=== PATIENT | female | born 1960 | race Caucasian/White ===

== ENCOUNTER 2022-11-12 08:00 | Outpatient (OUT) | payer OTHER, SELFPAY ==
[2022-11-12 16:40] LABS: Creatinine Urine Random 35.93 mg/dL (20.00-300.00); Protein Creatinine Ratio Urine 0.17; Total Protein Urine Random <6.0 mg/dL (<=11.9)
[2022-11-12 16:51] LABS: Anion Gap 9.4; BUN Creatinine Ratio 17.9; Calcium 10.5 mg/dL (8.5-10.1); Carbon Dioxide 30.9 mmol/L (21.0-32.0); Chloride 105 mmol/L (98-107); Estimated GFR (African America 35 (>=60); Estimated GFR (Non-African Ame 29 (>=60); Glucose 97 mg/dL (74-106); Phosphorus 4.5 mg/dL (2.6-4.7); Potassium 4.3 mmol/L (3.5-5.1); Sodium 141 mmol/L (136-145); Uric Acid 6.9 mg/dL (2.6-6.0)
[2022-11-12 16:52] LABS: Hematocrit 40.8 % (36.0-48.0); Hemoglobin 13.1 g/dL (12.0-16.0)
[2022-11-12 17:32] LABS: Bilirubin Urine NEGATIVE (NEGATIVE); Blood Urine NEGATIVE (NEGATIVE); Clarity Urine CLEAR (CLEAR); Color Urine LT. YELLOW (YELLOW); Glucose Urine UA NEGATIVE (NEGATIVE); Ketones Urine NEGATIVE (NEGATIVE); Leukocyte Esterase Urine SMALL (NEGATIVE); Nitrite Urine NEGATIVE (NEGATIVE); Protein Urine NEGATIVE (NEG/TRACE); Specific Gravity Urine <=1.005 (1.005-1.025); Urobilinogen Urine 0.2 EU/dL (0.2-1.0)
[2022-11-12 17:47] LABS: Bacteria Urine NONE SEEN #/HPF (NONE SEEN); Cast Seen? NONE SEEN #/LPF (NONE SEEN); Crystals Seen? None Seen #/HPF (None Seen); Mucus Urine NONE SEEN (NONE SEEN); RBC Urine NONE SEEN #/HPF (0-2); Squamous Epithelial Cell Urine RARE #/LPF (NONE/RARE); Urine Culture Indicated ALREADY ORDERED
[2022-11-15 13:07] LABS: PTH, Intact 84 pg/mL (15-65)
== END 2022-11-12 08:01 ==
PROVIDERS: PCP Family Medicine; Visit Provider Internal Medicine
DX: N25.81 Secondary hyperparathyroidism of renal origin (principal); N18.32 Chronic kidney disease, stage 3b; Z79.899 Other long term (current) drug therapy; E83.41 Hypermagnesemia
CPT/HCPCS: 36415; 80069; 81001; 82306; 82570; 83970; 84156; 84550; 85014; 85018

== ENCOUNTER 2023-02-10 08:34 | Outpatient (OUT) | payer OTHER, SELFPAY ==
[2023-02-10 11:54] LABS: Calcium 10.2 mg/dL (8.5-10.1); Magnesium 2.4 mg/dL (1.8-2.4)
[2023-02-10 13:44] LABS: Calcium Urine Random <5.0 mg/dL (5.1-21.0); Creatinine Urine Random 14.32 mg/dL (20.00-300.00)
[2023-02-10 14:34] LABS: Calcium 24 Hour Urine 257.5 mg/24hr (100.0-300.0); Creatinine 24 Hour Urine 737.48 mg/24 hr (800.00-1800.00); Total Volume 24 Hour Urine 5150 mL/24hr
[2023-02-11 11:09] LABS: PTH, Intact 52 pg/mL (15-65)
[2023-02-17 01:07] LABS: PTHrP (PTH-Related Peptide) <2.0 pmol/L (.)
== END 2023-02-10 08:35 | disposition home or self-care (01) ==
LOC: LAB 08:34
PROVIDERS: PCP Family Medicine; Visit Provider Internal Medicine
DX: E21.3 Hyperparathyroidism, unspecified (principal); E83.52 Hypercalcemia; E55.9 Vitamin D deficiency, unspecified
CPT/HCPCS: 36415; 82310; 82340; 82397; 82570; 83735; 83970

== ENCOUNTER 2023-02-10 08:36 | Outpatient (OUT) | payer OTHER, SELFPAY ==
[2023-02-10 09:14] LABS: Hematocrit 40.8 % (36.0-48.0); Hemoglobin 13.2 g/dL (12.0-16.0)
[2023-02-10 09:47] LABS: Bilirubin Urine NEGATIVE (NEGATIVE); Blood Urine NEGATIVE (NEGATIVE); Clarity Urine CLEAR (CLEAR); Color Urine LT. YELLOW (YELLOW); Glucose Urine UA NEGATIVE (NEGATIVE); Ketones Urine NEGATIVE (NEGATIVE); Leukocyte Esterase Urine MODERATE (NEGATIVE); Nitrite Urine NEGATIVE (NEGATIVE); Protein Urine NEGATIVE (NEG/TRACE); Specific Gravity Urine <=1.005 (1.005-1.025); Urobilinogen Urine 0.2 EU/dL (0.2-1.0); pH Urine 6.5 (5.0-9.0)
[2023-02-10 12:05] LABS: Albumin Level 3.8 g/dL (3.4-5.0); BUN Creatinine Ratio 13.3; Calcium 10.2 mg/dL (8.5-10.1); Carbon Dioxide 29.5 mmol/L (21.0-32.0); Chloride 112 mmol/L (98-107); Estimated GFR (African America 40 (>=60); Estimated GFR (Non-African Ame 33 (>=60); Glucose 89 mg/dL (74-106); Potassium 4.5 mmol/L (3.5-5.1); Sodium 146 mmol/L (136-145)
[2023-02-10 12:49] LABS: Bacteria Urine TRACE #/HPF (NONE SEEN); Mucus Urine NONE SEEN (NONE SEEN); RBC Urine 0-2 #/HPF (0-2); Squamous Epithelial Cell Urine FEW #/LPF (NONE/RARE)
[2023-02-10 12:50] LABS: Cast Seen? NONE SEEN #/LPF (NONE SEEN); Crystals Seen? None Seen #/HPF (None Seen); Urine Culture Indicated YES
[2023-02-11 18:08] LABS: Free Kappa Lt Chains,S 35.4 mg/L (3.3-19.4); Free Lambda Lt Chains,S 25.6 mg/L (5.7-26.3); Kappa/Lambda Ratio,S 1.38 (0.26-1.65)
[2023-02-14 13:09] LABS: Albumin, U 44.3 % (.); Alpha-1-Globulin, U 4.9 % (.); Alpha-2-Globulin, U 12.5 % (.); Beta Globulin, U 20.2 % (.); Gamma Globulin, U 18.1 % (.); M-Spike, % Not Observed % (Not Observed); Protein,Total,Urine 10.7 mg/dL (Not Estab.)
[2023-02-14 14:08] LABS: Albumin 3.6 g/dL (2.9-4.4); Alpha-1-Globulin 0.3 g/dL (0.0-0.4); Alpha-2-Globulin 0.8 g/dL (0.4-1.0); Gamma Globulin 0.9 g/dL (0.4-1.8); Immunoglobulin A, Qn, Serum 164 mg/dL (87-352); Immunoglobulin G, Qn, Serum 941 mg/dL (586-1602); Immunoglobulin M, Qn, Serum 93 mg/dL (26-217); Protein, Total 6.6 g/dL (6.0-8.5)
== END 2023-02-10 08:37 | disposition home or self-care (01) ==
LOC: LAB 08:37
PROVIDERS: PCP Family Medicine; Visit Provider Internal Medicine
DX: E21.3 Hyperparathyroidism, unspecified (principal); E83.52 Hypercalcemia; E55.9 Vitamin D deficiency, unspecified; N18.32 Chronic kidney disease, stage 3b; Z79.899 Other long term (current) drug therapy
CPT/HCPCS: 36415; 80069; 81001; 82306; 82310; 82340; 82397; 82570; 82784; 83735; 83970; 84155; 84156; 84165; 84166; 85014; 85018; 87086

== ENCOUNTER 2023-03-01 09:37 | Outpatient (OUT) | payer OTHER, SELFPAY ==
[2023-03-01 10:21] LABS: Bilirubin Urine NEGATIVE (NEGATIVE); Blood Urine NEGATIVE (NEGATIVE); Clarity Urine CLEAR (CLEAR); Color Urine LT. YELLOW (YELLOW); Glucose Urine UA NEGATIVE (NEGATIVE); Ketones Urine NEGATIVE (NEGATIVE); Leukocyte Esterase Urine SMALL (NEGATIVE); Nitrite Urine NEGATIVE (NEGATIVE); Protein Urine NEGATIVE (NEG/TRACE); Specific Gravity Urine <=1.005 (1.005-1.025); Urobilinogen Urine 0.2 EU/dL (0.2-1.0); pH Urine 6.5 (5.0-9.0)
[2023-03-01 11:32] LABS: Anion Gap 12.8; BUN Creatinine Ratio 20.1; Calcium 10.7 mg/dL (8.5-10.1); Carbon Dioxide 28.2 mmol/L (21.0-32.0); Chloride 104 mmol/L (98-107); Estimated GFR (African America 40 (>=60); Estimated GFR (Non-African Ame 33 (>=60); Glucose 70 mg/dL (74-106); Sodium 141 mmol/L (136-145)
== END 2023-03-01 09:38 | disposition home or self-care (01) ==
PROVIDERS: PCP Family Medicine; Visit Provider Family Medicine
DX: R41.0 Disorientation, unspecified (principal)
CPT/HCPCS: 36415; 80048; 81003; 87086

== ENCOUNTER 2023-03-01 09:38 | Outpatient (OUT) | payer OTHER, SELFPAY ==
[2023-03-01 10:09] LABS: Basophils Percent Auto 0.3 % (0.2-2.0); Eosinophils Absolute Auto 0.2 10^3/uL (0.0-0.7); Eosinophils Percent Auto 2.2 % (0.9-7.0); Hematocrit 40.9 % (36.0-48.0); Hemoglobin 12.6 g/dL (12.0-16.0); Immature Granulocytes Abs Auto 0.04 10^3/uL (0.00-0.03); Immature Granulocytes Pct Auto 0.4 % (0.0-0.5); Lymphocytes Absolute Auto 2.6 10^3/uL (1.2-3.8); Lymphocytes Percent Auto 25.1 % (20.5-60.0); Mean Corpuscular HGB Conc 30.8 g/dL (29.9-35.2); Mean Corpuscular Hemoglobin 32.1 pg (26.7-34.0); Mean Corpuscular Volume 104.1 fL (81.0-99.0); Mean Platelet Volume 10.6 fL (9.5-13.5); Monocytes Absolute Auto 0.9 10^3/uL (0.3-0.8); Monocytes Percent Auto 8.5 % (1.7-12.0); Neutrophils Absolute Auto 6.6 10^3/uL (1.4-6.5); Neutrophils Percent Auto 63.5 % (43.0-75.0); Platelet Count 232 10^3/uL (150-450); Red Blood Count 3.93 10^6/uL (4.20-5.40); Red Cell Distribution Width 13.2 % (11.0-15.0); White Blood Count 10.4 10^3/uL (4.0-11.0)
[2023-03-01 12:08] LABS: Thyroid Stimulating Hormone 5.544 uIU/mL (0.358-3.740)
[2023-03-01 16:00] LABS: Free T4 0.92 ng/dL (0.76-1.46)
[2023-03-02 08:12] LABS: Lithium (Eskalith(R)), Serum 1.5 mmol/L (0.5-1.2)
== END 2023-03-01 09:39 | disposition home or self-care (01) ==
PROVIDERS: PCP Family Medicine
DX: R41.0 Disorientation, unspecified (principal); Z79.899 Other long term (current) drug therapy
CPT/HCPCS: 36415; 80048; 80178; 81003; 84439; 84443; 85025; 87086

== ENCOUNTER 2023-03-07 15:16 | Outpatient (OUT) | payer OTHER, SELFPAY | END 2023-03-07 15:17 | disposition home or self-care (01) | LOC: LAB 15:17 | PROVIDERS: PCP Family Medicine | DX: Z79.899 Other long term (current) drug therapy (principal) | CPT/HCPCS: 36415; 80178 ==

== ENCOUNTER 2023-05-21 09:03 | Outpatient (OUT) | payer OTHER, SELFPAY | END 2023-05-21 09:04 | disposition home or self-care (01) | LOC: LAB 09:03 | PROVIDERS: PCP Family Medicine; Visit Provider Nurse Practitioner Family | DX: Z79.899 Other long term (current) drug therapy (principal) | CPT/HCPCS: 36415; 80178 ==

== ENCOUNTER 2023-08-29 15:33 | Outpatient (OUT) | payer OTHER, SELFPAY ==
--- OUTSIDE RECORDS SUMMARY | 2023-08-29 15:45 | XMS_ITS | CCD ---
Author Organization [facility] Care Team Providers Care All Terrain Vehicle Technician Name Role Phone SANTA AUGUSTIN Unavailable Unavailable CASSIDY, AHMED Unavailable Unavailable CASSIDY, AHMED Unavailable Unavailable MARY KATE MAST Unavailable Unavailable Santa Augustin E Primary Care Provider [phone] Santa Augustin MD Primary Care Provider Santa Augustin MD Primary Care Provider Zachary Pascual Unavailable Geneva Naik Unavailable MD Santa Augustin Primary Care Provider DO [place] [facility] Provider MD Austyn Marco A Admit Provider [phone] MD Austyn Marco A Attending Provider [phone] Marco A Zaman Admitting Unavailable Augustin Santa E Primary Care Unavailable Marco A Zaman Attending Unavailable Geneva Naik Attending Unavailable Geneva Naik Admitting Unavailable Augustin, Santa E Primary Care Unavailable Santa Augustin MD Primary Care Provider [phone] DEMETRIA SANTA E Primary Care Unavailable GEHLOT, UPENDER Attending Unavailable AUGUSTIN, SANTA E Primary Care Unavailable GEHLOT, UPENDER Attending Unavailable AUGUSTIN, SANTA E Primary Care Unavailable GEHLOT, UPENDER Attending Unavailable AUGUSTIN, SANTA E Primary Care Unavailable GEHLOT, UPENDER Attending Unavailable AUGUSTIN, SANTA E Primary Care Unavailable GEHLOT, UPENDER Attending Unavailable AUGUSTIN, SANTA E Primary Care Unavailable GEHLOT, UPENDER Attending Unavailable AUGUSTIN, SANTA E Primary Care Unavailable GEHLOT, UPENDER Attending Unavailable AUGUSTIN, SANTA E Primary Care Unavailable GEHLOT, UPENDER Attending Unavailable ROSMERY MOON Consulting UnavailDR YENNIFER Skelton Admitting Unavailable AUGUSTIN, DR SANTA Brown Primary Care Unavailable MEHRAN ., DR DE OLIVEIRA Attending Unavailable CARL, PETER Consulting Unavailable AUGUSTIN, DR SANTA Brown Primary Care Unavailable MARIA DOLORES, ZACHARY Admitting Unavailable MARIA DOLORES, ZACHARY Attending Unavailable MARIA DOLORES, AZCHARY Consulting Unavailable GEHLOT, UPENDER Admitting Unavailable GEHLOT, UPENDER Attending Unavailable DEMETRIA, DR SANTA Brown Primary Care Unavailable GEHLOT, UPENDER Consulting Unavailable GEHLOT, UPENDER Admitting Unavailable GEHLOT, UPENDER Attending Unavailable AUGUSTIN, DR SANTA Brown Primary Care Unavailable GEHLOT, UPENDER Consulting Unavailable WEST, DR DENTON Patton Consulting Unavailable AUGUSTIN, DR SANTA Brown Primary Care Unavailable AUGUSTIN, DR SANTA Brown Admitting Unavailable AUGUSTIN, DR SANTA Brown Attending Unavailable AUGUSTIN, DR SANTA Brown Consulting Unavailable AUGUSTIN, DR SANTA Brown Primary Care Unavailable MARIA DOLORES, ZACHARY Admitting Unavailable MARIA DOLORES, ZACHARY Attending Unavailable MARIA DOLORES, ZACHARY Consulting Unavailable GEHLOT, UPENDER Admitting Unavailable GEHLOT, UPENDER Attending Unavailable AUGUSTIN, DR SANTA Brown Primary Care Unavailable GEHLOT, UPENDER Consulting Unavailable Augustin, Santa Unavailable Allergies Allergy Classification Reported Allergen(s) Allergy Type Date of Onset Reaction(s) Facility (15 sources) chlorproMAZINE; Translations: [CHLORPROMAZINE] Drug Allergy 5 [facility] (15 sources) Trifluoperazine; Translations: [TRIFLUOPERAZINE] Drug Allergy 0 [facility] (1 source) chlorproMAZINE Drug Allergy 5 [facility] Repository Medications Current Medications Medication Drug Class(es) Dates Sig (Normalized) Sig (Original) cephalexin 500 mg oral capsule (1 source) Cephalosporin Antibacterial Start: 03-11-2022 take 500 mg by mouth every six hours Cephalexin Active 500 MG PO Q6H 40 March 11, 2022 12:00am lithium carbonate 300 mg extended release oral tablet (20 sources) Start: 05-18-2022 End: 06-21-2022 take 3 tablets by mouth once daily lithium (LITHOBID) 300 MG CR tablet Take 3 (three) tablets (900 mg total) by mouth daily . 90 tablet 1 06/21/2022 Active Start: 04-26-2022 take 1 tablet by deb th once daily lithium (ESKALITH) 450 MG CR tablet Take 1 (one) tablet (450 mg total) by mouth daily . 30 tablet 0 04/26/2022 Active Start: 10-17-2020 End: 11-19-2021 take 2 tablets by mouth once daily lithium (ESKALITH) 450 MG CR tablet Take 2 (two) tablets (900 mg total) by mouth nightly . 180 tablet 1 09/14/2021 11/19/2021 Discontinued Start: 08-04-2020 End: 08-22-2020 take 2 tablets by mouth once daily lithium (ESKALITH) 450 MG CR tablet Take 2 (two) tablets (900 mg total) by mouth nightly . 180 tablet 1 08/22/2020 Active take 2 tablets by mo [facility] every twenty-four hours [place] Carbonate ER 300 MG 2 tab(s) Orally Once a day Active MegaRed [place]-3 Krill Oil 50 0 MG (10 sources) MegaRed [place]-3 Krill Oil 500 MG as directed Orally ONCE A DAY Active Neuriva - (10 sources) Neuriva - as dir ected Orally Active OLANZapine 10 mg oral tablet (20 sources) Atypical Antipsychotic Start: 05-18-2022 OLANZap ine (ZyPREXA) 10 MG tablet 1/2 tab daily HS X 1 wk, and then 1 daily HS thereafter . 30 tablet 0 05/18/2022 Active Start: 03-02-2022 End: 04-19-2022 take 20 mg by mouth once daily Olanzapine Discontinued 20 MG PO Daily March 11, 2022 12:00am March 23, 2022 2:37pm Start: 02-12-2022 End: 03-02-2022 take 1 tablet by mouth once daily OLANZapine (ZYPREXA) 15 MG tablet Take 1 (one) tablet (15 mg total) by mouth nightly . 90 tablet 1 02/12/2022 03/02/2022 Discontinued Start: 01-18-2022 End: 02-12-2022 take 1 tablet by mouth once daily OLANZapine (ZYPREXA) 10 MG tablet Take 1 (one) tablet (10 mg total) by mouth nightly . 90 tablet 1 01/18/2022 02/12/2022 Discontinued (Reorder) Start: 10-17-2020 End: 04-11-2022 take 1 tablet by mouth once daily OLANZapine (ZYPREXA) 10 MG tablet Take 1 (one) tablet (10 mg total) by mouth nightly . 90 tablet 1 09/14/2021 Active 24 hr paliperidone 6 mg extended release oral tablet (12 sources) Atypical Antipsychotic Start: 05-18-2022 End: 06-21-2022 take 1 tablet by mouth once daily paliperidone (INVEGA) 6 MG 24 hr tablet Take 1 (one) tablet (6 mg total) by mouth daily . 30 tablet 1 06/21/2022 Active Start: 04-19-2022 End: 04-19-2022 paliperidone palmitate (INVE GA SUSTENNA) injection 156 mg Start: 04-19-2022 End: 04-19-2022 paliperidone palmitate (INVE GA SUSTENNA) injection 156 mg Start: 03-23-2022 End: 04-19-2022 take 1 tablet by mouth once daily paliperidone (INVEGA) 9 MG 24 hr tablet Take 1 (one) tablet (9 mg total) by mouth daily . 30 tablet 1 04/19/2022 Active Start: 03-23-2022 Invega Sustenn a 156 mg/mL Syrg ADMINISTER 1 ML IN THE MUSCLE EVERY 30 DAYS 0 03/24/2022 Active Completed/Discontinued Medications Medication Drug Class(es) Dates Sig (Normalized) Sig (Original) clonazePAM 1 mg oral tablet (20 sources) Benzodiazepine Start: 10-28-2021 End: 09-19-2022 take 1 tablet by mouth once daily clonazePAM (KlonoPIN) 1 MG tablet Indications: KALEN (generalized anxiety disorder) Take 1 (one) tablet (1 mg total) by mouth nightly (Days supply per fill: 30) . 30 tablet 2 05/18/2022 06/21/2022 Discontinued (Reorder (Suppress CancelRx Message to Pharmacy)) Start: 07-14-2020 End: 10-14-2021 take 1 tablet by mouth once daily clonazePAM (KlonoPIN) 1 MG tablet Indications: Anxiety Take 1 (one) tablet (1 mg total) by mouth nightly (Days supply per fill: 30) . 30 tablet 0 08/25/2021 09/14/2021 Discontinued (Reorder) docusate sodium 100 mg oral capsule (10 sources) take 1 capsule by mouth every twelve hours Stool Softener 100 MG 1 capsule as needed Orally TWICE A DAY Not-Taking/PRN Knee Brace - (5 sources) Start: 05-06-2021 Knee Brace - as directed closed fracture left patella May, Not-Taking Start: 05-06-2021 Start: 05-06-2021 Knee Brace - a s directed closed fracture left patella May, Active OXcarbazepine 300 mg oral tablet (6 sources) Anti-epileptic Agent Start: 03-23-2022 End: 06-21-2022 take 1 tablet by mouth twice daily OXcarbazepine (TRILEPTAL) 300 MG tablet Take 1 (one) tablet (300 mg total) by mouth 2 (two) times a day . 60 tablet 1 04/19/2022 06/21/2022 Discontinued Problems Active Problems Problem Classification Problem Date Documented Date Episodic/Chronic Anxiety disorders (20 sources) Generalized anxiety disorder; Translations: [Generalized anxiety disorder] Onset: 1 08-22-2020 Chronic Chronic kidney disease (20 sources) Chronic kidney disease stage 3; Translations: [Chronic kidney disease stage 2] Onset: 0 Resolved: 1 08-22-2020 Chronic Deficiency and other anemia (8 sources) Anemia of renal disease; Translations: [Anemia in chronic kidney disease] Chronic Mood disorders (20 sources) Mild manic bipolar I disorder; Translations: [Bipolar disorder, current episode manic without psychotic features, mild] Onset: 3 08-22-2020 Chronic Nausea and vomiting (1 source) Nausea and vomiting; Translations: [Nausea with vomiting, unspecified] Episodic Noninfectious gastroenteritis (1 source) Noninfective gastroenteritis and colitis, unspecified Episodic Other aftercare (2 sources) H/O: high risk medication; Translations: [Other nursing home (current) drug therapy] Episodic Other aftercare (11 sources) Other nursing home (current) drug therapy; Translations: [[place] use Z79.899] Onset: 1 Resolved: 1 Episodic Other circulatory disease (1 source) Elevated blood-pressure reading without diagnosis of hypertension; Translations: [Elevated blood-pressure reading, without diagnosis of hypertension] Episodic Other diseases of kidney and ureters (8 sources) Secondary hyperparathyroidism; Translations: [Secondary hyperparathyroidism of renal origin] Chronic Other diseases of kidney and ureters (2 sources) Secondary hyperparathyroidism of renal origin; Translations: [SEC HYPERPARATHYROIDISM RENAL ORIGN] Onset: 2 Chronic Other endocrine disorders (4 sources) Hyperparathyroidism; Translations: [Hyperparathyroidism, unspecified] Chronic Other endocrine disorders (2 sources) Hyperparathyroidism, unspecified Chronic Other gastrointestinal disorders (1 source) Swollen abdomen; Translations: [Right lower quadrant abdominal swelling, mass and lump] Episodic Other nutritional; endocrine; and metabolic disorders (10 sources) Hypercalcemia; Translations: [Hypercalcemia] Chronic Other nutritional; endocrine; and metabolic disorders (10 sources) Hypermagnesemia; Translations: [Hypermagnesemia] Chronic Other nutritional; endocrine; and metabolic disorders (4 sources) Hypercalcemia; Translations: [Hypercalcemia E83.52] Onset: 1 Resolved: 1 Chronic Other nutritional; endocrine; and metabolic disorders (3 sources) Hypermagnesemia; Translations: [Hypermagnesemia E83.41] Onset: 1 Resolved: 1 Chronic Other nutritional; endocrine; and metabolic disorders (1 source) Body mass index 25-29 - overweight; Translations: [Body mass index (BMI) 25.0-25.9, adult] Episodic Other screening for suspected conditions (not mental disorders or infectious disease) (6 sources) Encounter for screening mammogram for malignant neoplasm of breast; Translations: [Abnormal findings on diagnostic imaging of breast] Onset: 2 Episodic Other skin disorders (2 sources) Localized swelling, mass and lump, right upper limb; Translations: [LOC SWELL MASS LUMP RT UPPER LIMB] Onset: 2 Episodic Other upper respiratory disease (1 source) Nasal congestion; Translations: [Nasal congestion] Episodic Pneumonia (except that caused by tuberculosis or sexually transmitted disease) (1 source) Pneumonia; Translations: [Pneumonia, unspecified organism] Episodic Residual codes; unclassified (2 sources) Hallucinations; Translations: [Hallucinations, unspecified] 03-11-2022 Episodic Residual codes; unclassified (2 sources) Hallucinations, unspecified; Translations: [Hallucinations] 03-11-2022 Episodic Residual codes; unclassified (1 source) Postmenopausal state; Translations: [Asymptomatic menopausal state] Episodic Schizophrenia and other psychotic disorders (5 sources) 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 substance or known physiological condition; Translations: [Schizophrenia] Onset: 8 03-12-2022 Chronic Syncope (1 source) Syncope and collapse; Translations: [Syncope and collapse] Episodic Unclassified (1 source) H/O: high risk medication; Translations: [Long-term use of high-risk medication] Unclassified (1 source) M25.562 - Pain in left knee; Translations: [M25.562 - Pain in left knee] Onset: 1 Urinary tract infections (4 sources) Urinary tract infectious disease; Translations: [Urinary tract infection, site not specified] 03-11-2022 Episodic Viral infection (1 source) Disease caused by 2019-nCoV; Translations: [COVID-19] Past or Other Problems Problem Classification Problem Date Documented Da te Episodic/Chronic Abdominal pain (1 source) Right lower quadrant pain; Translations: [Right lower quadrant pain] Onset: 11-14-2018 Episodic Chronic kidney disease (12 sources) Chronic kidney disease; Translations: [Chronic kidney disease, stage 3b] Onset: 04-01-2021 Resolved: 04-01-2021 E Codes: Fall (1 source) Fall (on) (from) unspecified stairs and steps, initial encounter; Translations: [FALL ON FROM UNS STAIRS STEPS INIT] Onset: 12-09-2021 Episodic Fracture of lower limb (1 source) Other fracture of left patella, initial encounter for closed fracture Onset: 05-06-2021 Resolved: 05-06-2021 Episodic Fracture of lower limb (1 source) Other fracture of upper and lower end of right fibula, initial encounter for closed fracture; Translations: [OTH FX UP LOW RT FIB INIT CLOS FX] Onset: 12-09-2021 Episodic Malaise and fatigue (1 source) Fatigue; Translations: [Other fatigue] Onset: 04-19-2018 Episodic Nonspecific chest pain (1 source) Chest pain; Translations: [Other chest pain] Onset: 12-25-2014 Episodic Other gastrointestinal disorders (1 source) Constipation; Translations: [Constipation, unspecified] Onset: 04-28-2015 Episodic Other non-traumatic joint disorders (1 source) Pain in left knee Onset: 05-06-2021 Resolved: 05-06-2021 Episodic Other non-traumatic joint disorders (4 sources) Pain in right ankle and joints of right foot; Translations: [PAIN IN RIGHT ANKLE] Onset: 12-07-2021 Episodic Other non-traumatic joint disorders (1 source) Shoulder joint pain; Translations: [Pain in right shoulder] Onset: 05-06-2017 Episodic Other upper respiratory infections (1 source) Acute sinusitis; Translations: [Acute sinusitis, unspecified] Onset: 03-11-2014 Episodic Residual codes; unclassified (14 sources) History of total hysterectomy with bilateral salpingo-oophorecto my; Translations: [Acquired absence of both cervix and uterus] Onset: 10-18-2019 08-22-2020 Episodic Residual codes; unclassified (1 source) Family history of malignant neoplasm of breast; Translations: [FAMILY HX MALIG NEOPLASM OF BREAST] Onset: 04-12-2022 Episodic Residual codes; unclassified (1 source) Family history of malignant neoplasm of digestive organs; Translations: [FAM HX MALIG NEOPLASM DIGESTIV ORGN] Onset: 04-12-2022 Episodic Results Test Name Value Interpretation Reference Range Facility LITHIUMon 05-27-2022 [place] (Eskalith(R)), Serum 1.2 mmol/L Normal 0.5-1.2 [facility] Comment on above: Result Comment: A co ncentration of 0.5-0.8 mmol/L is advised for long-term use; concentrations of up to 1.2 mmol/L may be necessary during acute treatment. Detection Limit = 0.1 <0.1 indicates None Detected Performed By: #### L ITHIUM #### [facility] [address] [place] [address] Dr. Emanuel Degroot RENAL FUNCTION PANELon 05-08 Albumin [Mass/Vol] 3.7 g/dL Normal 3.4-5.0 [facility] Comment on above: Performed By: #### R ENAL #### [facility] [address] [address] [address] Emanuel Degroot Calcium [Mass/Vol] 9.5 mg/dL Normal 8.5-10.1 [facility] Comment on above: Performed By: #### R ENAL #### [facility] [address] [address] [address] Emanuel Degroot Chloride [Moles/Vol] 106 mmol/L Normal 98-107 [facility] Comment on above: Performed By: #### R ENAL #### [facility] [address] [address] [address] Emanuel Degroot CO2 [Moles/Vol] 29.2 mmol/L Normal 21.0-32.0 [facility] Comment on above: Performed By: #### R ENAL #### [facility] [address] [place] [address] Dr. Emanuel Degroot Creatinine [Mass/Vol] 1.30 mg/dL Critically high 0.55-1.02 [facility] Comment on above: Performed By: #### R ENAL #### [facility] [address] [place] [address] Dr. Emanuel Degroot EGFR-AF AZERBAIJANI 50 mL/min/1.73m2 Critically low >=60 [facility] Comment on above: Performed By: #### R ENAL #### [facility] [address] [place] [address] Dr. Emanuel Degroot EGFR-NON AF AZERBAIJANI 42 mL/min/1.73m2 Critically low >=60 [facility] Comment on above: Performed By: #### R ENAL #### [facility] [address] [place] [address] Dr. Emanuel Degroot Glucose [Mass/Vol] 96 mg/dL Normal 74-106 [facility] Comment on above: Performed By: #### R ENAL #### [facility] [address] [place] [address] Dr. Emanuel Degroot Phosphate [Mass/Vol] 4.1 mg/dL Normal 2.6-4.7 [facility] Comment on above: Performed By: #### R ENAL #### [facility] [address] [place] [address] Dr. Emanuel Degroot Potassium [Moles/Vol] 4.0 mmol/L Normal 3.5-5.1 [facility] Comment on above: Performed By: #### R ENAL #### [facility] [address] [address] [address] Emanuel Degroot Sodium [Moles/Vol] 140 mmol/L Normal 136-145 [facility] Comment on above: Performed By: #### R ENAL #### [facility] [address] [address] [address] Emanuel Degroot Urea nitrogen [Mass/Vol] 18.0 mg/dL Normal 7.0-18.0 [facility] Comment on above: Performed By: #### R ENAL #### [facility] [address] [address] [address] Emanuel Degroot MG MAMM SCREEN TERRA W CADon 1 06-08-2021 MG MAMM SCREEN TERRA W CAD Patient: NOLA BAUTISTA Exam Date: 04/08/2022 : 1960 Gender:F Ordering : DR SANTA AUGUSTIN M.D. Admission #: [id number] Family : Order #: [id number] CLICK HERE TO VIEW EXAM RADIOLOGY REPORT PROCEDURE: MAMMOGRAM BILATERAL SCREENING DIGITAL WITH COMPUTER AIDED DETECTION COMPARISON: MG MAMM LT DIAG W CAD, 01/30/2020. MG MAMM LT DIAG FU, 08/16/2019. INDICATIONS: Screening mammography Calculator Name NCI Breast Cancer Risk Assessment Tool 5 Year Breast Cancer Risk 2.60% Lifetime Breast Cancer Risk 11.30% Personal Breast Cancer No Personal Ovarian Cancer No Treatments None Family Cancers Aunt-maternal with breast cancer at age 75; Aunt-maternal with breast cancer at age 80; Aunt-maternal with breast cancer at age 70; Mother with colon cancer at age 56. LOCATION: [facility] BREAST COMPOSITION: Scattered areas fibroglandular density. FINDINGS: DIAGNOSTIC CATEGORY 2--BENIGN FINDING. NO CHANGE FROM COMPARISON. Limited 2D exam due to patient tolerance. Scattered benign-appearing nodules are present. Scattered benign-appearing calcifications are present. Scattered benign-appearing lymph nodes are present. RIGHT BREAST: No significant suspicious finding. LEFT BREAST: No significant suspicious finding. RECOMMENDATIONS: ROUTINE MAMMOGRAM AND CLINICAL EVALUATION IN 12 MONTHS. PLEASE NOTE: A NORMAL MAMMOGRAM DOES NOT EXCLUDE THE POSSIBILITY OF BREAST CANCER. A CLINICALLY SUSPICIOUS PALPABLE LUMP SHOULD BE BIOPSIED. Dictated by: Denton Roland MD on 04/08/2022 at 13:39 Approved by: Denton Roland MD on 04/08/2022 at 13:40 Normal [facility] US EXT NON VASC LIMITED RTon 04-08-2022 US EXT NON VASC LIMITED RT EXAMINATION: US EXT NON VASC LIMITED RT HISTORY: Localized swelling of right upper limb COMPARISON: No relevant comparison available. FINDINGS: Slight ultrasound in the area the patient's palpable mass demonstrates a hyperechogenic lesion round in shape measuring 0.8 x 0.9 x 0.8 cm with some acoustic shadowing. This area is mildly lobular and appears to extend into the skin IMPRESSION: Indeterminate 9 mm hyperechogenic lesion, differential diagnosis would include inclusion cyst versus lipoma with infection considered less likely Electronically authenticated by: DENTON ROLAND Date: 2022-04-08 18:20 Normal [facility] Albumin [Mass/volume] in Ser um or PlasmaOrdered By: Horacio Kim on 03-19-2022 Albumin [Mass/Vol] 3.3 g/dL 3.2-5.5 [facility] Comprehensive Metabolic Pane sanjeev 03-19-2022 Albumin [Mass/Vol] 3.3 g/dL Normal 3.2-5.5 [facility] Comment on above: Performed By: #### C MP #### [address] Albumin/Globulin [Mass ratio] 1.3 {ratio} Normal [facility] Comment on above: Performed By: #### C MP #### [facility] [address] [place] [address] [place] ALP [Catalytic activity/Vol] 38 U/L Normal 32-92 [facility] Comment on above: Performed By: #### C MP #### [place] [id number] [place] ALT [Catalytic activity/Vol] 22 U/L Normal 10-60 [facility] Comment on above: Performed By: #### C MP #### [address] Anion gap [Moles/Vol] 9.6 mmol/L Normal 6.0-15.0 [facility] Comment on above: Performed By: #### C MP #### [address] AST [Catalytic activity/Vol] 19 U/L Normal 10-42 [facility] Comment on above: Performed By: #### C MP #### [address] Bilirubin [Mass/Vol] 0.5 mg/dL Normal 0.3-1.2 [facility] Comment on above: Performed By: #### C MP #### [address] Calcium [Mass/Vol] 9.6 mg/dL Normal 8.2-10.2 [facility] Comment on above: Performed By: #### C MP #### [address] Chloride [Moles/Vol] 110 mmol/L Normal 95-114 [facility] Comment on above: Performed By: #### C MP #### [address] CO2 [Moles/Vol] 26.6 mmol/L Normal 22.0-30.[address] [facility] Comment on above: Performed By: #### C MP #### [address] Creatinine [Mass/Vol] 1.26 mg/dL High 0.44-1.03 [facility] Comment on above: Performed By: #### C MP #### [address] Creatinine Clr Calc Pharmacy 44.02 [facility] Comment on above: Result Comment: PERF ORMED BY: [place] [address] PATHOLOGIST [employer]OPPER [employer]KER HELPER KRISTI TURNER M.D. Performed By: #### C MP #### [address] Estimated GFR ( Katrina 52 [facility] Comment on above: Result Comment: GFR estimated reference range: According to KDOQI guidelines, <60 ml/min/1.73m2 is sufficient to diagnose a patient with chronic kidney disease. Performed By: #### C MP #### [address] Estimated GFR (Non- Am 43 [facility] Comment on above: Performed By: #### C MP #### [address] Globulin (S) [Mass/Vol] 2.6 g/dL [facility] Comment on above: Performed By: #### C MP #### [address] Glucose [Mass/Vol] 95 mg/dL Normal 70-100 [facility] Comment on above: Result Comment: [place] Glucose Reference Range is dependent on time and content of last meal. Glucose of more than 200 mg/dL in a nonstressed, ambulatory subject supports the diagnosis of Diabetes Mellitus. ADA recommended reference range Performed By: #### C MP #### [address] Potassium [Moles/Vol] 4.2 mmol/L Normal 3.5-5.1 [facility] Comment on above: Performed By: #### C MP #### [address] Protein [Mass/Vol] 5.9 g/dL Low 6.1-7.9 [facility] Comment on above: Performed By: #### C MP #### [address] Sodium [Moles/Vol] 142 mmol/L Normal 136-146 [facility] Comment on above: Performed By: #### C MP #### [place] [address] [place] Urea nitrogen [Mass/Vol] 28 mg/dL High 9- [facility] Comment on above: Performed By: #### C MP #### [place] [address] [place] Creatinine and Glomerular fi ltration rate.predicted panel (S/P/Bld)Ordered By: Horacio Kim on 03-19-2022 Creatinine [Mass/Vol] 1.26 mg/dL 0.44-1.03 [facility] Estimated glomerular filtrat ion rate (GFR) non- AmericanOrdered By: Horacio Kim on 03-19-2022 GFR/1.73 sq M.predicted among non-blacks MDRD (S/P/Bld) [Vol rate/Area] 43 mL/Min [facility] Globulin Calc (S) [Mass/Vol] Ordered By: Horacio Kim on 03-19-2022 Globulin (S) [Mass/Vol] 2.6 g/dL [facility] No Panel InformationOrdered By: Horacio Kim on 03-19-2022 Estimated GFR () 52 mL/Min [facility] Comment on above: GFR estimated refere nce range: According to KDOQI guidelines, <60 ml/min/1.73m2 is sufficient to diagnose a patient with chronic kidney disease. Pharmacy Creatinine Clearance (Chem 44.02 [facility] Protein [Mass/volume] in Ser um or PlasmaOrdered By: Horacio Kim on 03-19-2022 Protein [Mass/Vol] 5.9 g/dL 6.1-7.9 [facility] Serum or plasma alanine arora otransferase measurement without P-5'-P (enzymatic activiOrdered By: Horacio Kim on 03-19-2022 ALT No additional P-5'-P [Catalytic activity/Vol] 22 U/L 10-60 [facility] Serum or plasma albumin/glob ulin mass ratioOrdered By: Horacio Kim on 03-19-2022 Albumin/Globulin [Mass ratio] 1.3 {ratio} [facility] Serum or plasma alkaline lashaun sphatase measurement (enzymatic activity/volume)Ordered By: Horacio Kim on 03-19-2022 ALP [Catalytic activity/Vol] 38 U/L 32-92 [facility] Serum or plasma anion gap de terminationOrdered By: Horacio Kim on 03-19-2022 Anion gap [Moles/Vol] 9.6 mmol/L 6.0-15.0 [facility] Serum or plasma aspartate am inotransferase measurement (enzymatic activity/volume)Ordered By: Horacio Kim on 03-19-2022 AST [Catalytic activity/Vol] 19 U/L 10- [facility] Serum or plasma calcium sunil urement (mass/volume)Ordered By: Horacio Kim on 03-19-2022 Calcium [Mass/Vol] 9.6 mg/dL 8.2-10.2 [facility] Serum or plasma chloride leo surement (moles/volume)Ordered By: Horacio Kim on 03-19-2022 Chloride [Moles/Vol] 110 mmol/L 95-114 [facility] Serum or plasma glucose sunil urement (mass/volume)Ordered By: Horacio Kim on 03-19-2022 Glucose [Mass/Vol] 95 mg/dL 70-100 [facility] Comment on above: ADA recommended refe rence rangeRandom Glucose Reference Range is dependent on time and content of last meal. Glucose of more than 200 mg/dL in a nonstressed, ambulatory subject supports the diagnosis of Diabetes Mellitus. Serum or plasma potassium me asurement (moles/volume)Ordered By: Horacio Kim on 03-19-2022 Potassium [Moles/Vol] 4.2 mmol/L 3.5-5.1 [facility] Serum or plasma sodium measu rement (moles/volume)Ordered By: Horacio Kim on 03-19-2022 Sodium [Moles/Vol] 142 mmol/L 136-146 [facility] Serum or plasma total biliru bin measurement (mass/volume)Ordered By: Horacio Kim on 03-19-2022 Bilirubin [Mass/Vol] 0.5 mg/dL 0.3-1.2 [facility] Serum or plasma total carbon dioxide measurement (moles/volume)Ordered By: Horacio Kim on 03-19-2022 CO2 [Moles/Vol] 26.6 mmol/L 22.0-30.[address] [facility] Serum or plasma urea nitroge n measurement (mass/volume)Ordered By: Horacio Kim on 03-19-2022 Urea nitrogen [Mass/Vol] 28 mg/dL 02-26 [facility] Urine culture routineOrdered By: Ruby Penn on 03-13-2022 Bacteria identified Cx Nom (U) 2 Days [facility] Glucose Glucometer (BldC) [M ass/Vol]Ordered By: Marco A Zaman on 03-12-2022 Glucose [Mass/Vol] 120 mg/dL [facility] Comment on above: Random Glucose Refer ence Range is dependent on time and content of last meal. Glucose of more than 200 mg/dL in a nonstressed, ambulatory subject supports the diagnosis of Diabetes Mellitus. Glucose Poct Glucometerson 1 Commemt1 Normal [facility] Comment on above: Result Comment: Glu2 : Procedure Error PERFORMED BY: [place] [address] PATHOLOGIST [employer] HELPER KRISTI TURNER M.D. Performed By: #### L IPID, TSH3 wRFLX, [id number] #### [facility] [address] [place] [address] Glucose [Mass/Vol] 120 mg/dL Normal [facility] Comment on above: Result Comment: [place] om Glucose Reference Range is dependent on time and content of last meal. Glucose of more than 200 mg/dL in a nonstressed, ambulatory subject supports the diagnosis of Diabetes Mellitus. Performed By: #### L IPID, TSH3 wRFLX, [id number] #### [facility] [address] [place] [address] [place] Amphetamine Screen Ql (U)Ord ered By: Ruby Penn on 03-11-2022 Amphetamines Ql (U) Negative Negative [facility] Automated erythrocytes count in urine sediment (number/area)Ordered By: Ruby Penn on 03-11-2022 RBC Auto (Urine sed) [#/Area] None seen [HPF] 0-4 [facility] Automated leukocytes count i n urine sediment (number/area)Ordered By: Ruby Penn on 03-11-2022 WBC Auto (Urine sed) [#/Area] 10-19 [HPF] 0-4 [facility] Barbiturates [Presence] in U rineOrdered By: Ruby Penn on 03-11-2022 Barbiturates Ql (U) Negative Negative [facility] Basophils Auto (Bld) [#/Vol] Ordered By: Ruby Penn on 03-11-2022 Basophils (Bld) [#/Vol] 0.1 10*3/uL 0.0-0.2 [facility] Basophils/100 WBC Auto (Bld) Ordered By: Ruby Penn on 03-11-2022 Basophils/100 WBC (Bld) 0.8 % . [facility] Benzodiazepines [Presence] i n UrineOrdered By: Ruby Penn on 03-11-2022 Benzodiazepines Ql (U) Negative Negative [facility] Bilirubin Test strip Ql (U)O rdered By: Ruby Penn on 03-11-2022 Bilirubin Ql (U) Negative Negative [facility] Blood hemoglobin measurement (mass/volume)Ordered By: Ruby Penn on 03-11-2022 Hemoglobin (Bld) [Mass/Vol] 13.5 g/dL 11.8-15.4 [facility] Blood leukocytes automated c ount (number/volume)Ordered By: Ruby Penn on 03-11-2022 WBC (Bld) [#/Vol] 10.1 10*3/uL 4.5-11.0 [facility] Body fluid albumin measureme nt (mass/volume)Ordered By: Ruby Penn on 03-11-2022 Albumin (Body fld) [Mass/Vol] 3.9 g/dL 3.2-5.5 [facility] COVID-19 Antigenon 2 COVID-19 Antigen Healthcare Worker?: N Reference Range: Negative Negative results, from patients with symptom onset beyond five days, should be treated as presumptive and confirmation with a molecular assay, if necessary, for patient management, may be performed. Negative results do not rule out COVID-19 and should not be used as the sole basis for treatment or patient management decisions, including infection control decisions. Negative results should be considered in the context of a patient's recent exposures, history and the presence of clinical signs and symptoms consistent with COVID-19. The Demetria SARS Antigen MERARY does not differentiate between SARS-CoV and SARS-CoV-2. This test was developed and its performance characteristic determined by [employer] and validated at [facility]. This test has not been FDA cleared or approved. This test has been authorized by FDA under an Emergency Use Authorization (EUA). This test has been validated in accordance with the FDA's Guidance Document (Policy for Diagnostics Testing in Laboratories Certified to Perform High Complexity Testing under CLIA prior to Emergency Use Authorization for Coronavirus Disease-2019 during the Public Health Emergency) issued on September 06, 2019. This test is only authorized for the duration of time the declaration that circumstances exist justifying the authorization of the emergency use of in vitro diagnostic tests for detection of SARS-CoV-2 virus and/or diagnosis of COVID-19 infection under section 564(b)(1) of the Act, 21 U.S.C. 360bbb-3(b)(1), unless the authorization is terminated or revoked sooner. SARS-CoV+SARS-CoV-2 (COVID-19) Ag [Presence] in Respiratory specimen by Rapid immunoassay Negative for SARS Antigen by MERARY PERFORMED BY: [place] [address] PATHOLOGIST STOPPER MAK[employer] HELPER KRISTI TURNER M.D. [facility] Comment on above: Performed By: #### C OVID-19 DEMETRIA, SOFIANEG #### [address] COVID-19 SOFIAOrdered By: Joseph Penn on 03-11-2022 SARS-CoV+SARS-CoV-2 (COVID-19) Ag IA.rapid Ql (Resp) Negative Negative [facility] Comment on above: This is a duplicate Demetria SARS Antigen (MERARY) result to be used for statistical tracking purpose only. Cannabinoids [Presence] in U rine by Screen methodOrdered By: Ruby Penn on 03-11-2022 Cannabinoids Screen Ql (U) Negative Negative [facility] Comment on above: These are unconfirme d results and should not be used for legal purposes. Drug Cut-Off Concentration: AMPH 1000 ng/mL LAINA 200 ng/mL AYLEEN 200 ng/mL COCM 300 ng/mL OP 300 ng/mL PCP 25 ng/mL THC 20 ng/mL Cholesterol [Mass/volume] in Serum or PlasmaOrdered By: Marco A Zaman on 03-11-2022 Cholesterol [Mass/Vol] 208 mg/dL 140-200 [facility] Comment on above: Chol less than 200 m g/dl low riskChol 201-239 mg/dl borderline riskChol 240 mg/dl and greater high risk Cholesterol in LDL Calc [Mas s/Vol]Ordered By: Marco A Zaman on 03-11-2022 Cholesterol in LDL [Mass/Vol] 120 mg/dL 0-100 [facility] Comment on above: LDL ATP III CLASSIFI CATIONLDL less than 100 mg/dL OptimalLDL 100-129 mg/dL Near or above optimalLDL 130-159 mg/dL Borderline highLDL 160-189 mg/dL HighLDL greater than 189 mg/dL Very high Cholesterol in VLDL Calc [Ma ss/Vol]Ordered By: Marco A Zaman on 03-11-2022 Cholesterol in VLDL [Mass/Vol] 30 mg/dL [facility] Color Auto (U)Ordered By: Joseph Penn on 03-11-2022 Color (U) Yellow Yellow [facility] Comprehensive Metabolic Pane sanjeev 03-11-2022 Albumin [Mass/Vol] 3.9 g/dL Normal 3.2-5.5 [facility] Comment on above: Performed By: #### L IPID, TSH3 wRFLX, [id number] #### [facility] [address] [place] [address] [place] Albumin/Globulin [Mass ratio] 1.2 {ratio} Normal [facility] Comment on above: Performed By: #### L IPID, TSH3 wRFLX, [id number] #### [facility] [address] [place] [id number] [place] ALP [Catalytic activity/Vol] 45 U/L Normal 32-92 [facility] Comment on above: Performed By: #### L IPID, TSH3 wRFLX, [id number] #### [facility] [address] ALT [Catalytic activity/Vol] 22 U/L Normal 10-60 [facility] Comment on above: Performed By: #### L IPID, TSH3 wRFLX, [id number] #### [facility] [address] [place] [address] Anion gap [Moles/Vol] 17.0 mmol/L High 6.0-15.0 [facility] Comment on above: Performed By: #### L IPID, TSH3 wRFLX, [id number] #### [facility] [address] [place] [address] AST [Catalytic activity/Vol] 21 U/L Normal 10-42 [facility] Comment on above: Performed By: #### L IPID, TSH3 wRFLX, [id number] #### [facility] [address] [place] [address] Bilirubin [Mass/Vol] 0.8 mg/dL Normal 0.3-1.2 [facility] Comment on above: Performed By: #### L IPID, TSH3 wRFLX, [id number] #### [address] Calcium [Mass/Vol] 10.1 mg/dL Normal 8.2-10.2 [facility] Comment on above: Performed By: #### L IPID, TSH3 wRFLX, [id number] #### [facility] [address] [place] [address] Chloride [Moles/Vol] 102 mmol/L Normal 95-114 [facility] Comment on above: Performed By: #### L IPID, TSH3 wRFLX, [id number] #### [facility] [address] [place] [address] CO2 [Moles/Vol] 24.9 mmol/L Normal 22.0-30.[address] [facility] Comment on above: Performed By: #### L IPID, TSH3 wRFLX, [id number] #### [facility] [address] [place] [address] [place] Creatinine [Mass/Vol] 1.49 mg/dL High 0.44-1.03 [facility] Comment on above: Performed By: #### L IPID, TSH3 wRFLX, [id number] #### [facility] [address] [place] [address] [place] Creatinine Clr Calc Pharmacy 37.23 [facility] Comment on above: Result Comment: PERF ORMED BY: [place] [address] PATHOLOGIST [employer]PER [employer] HELPER KRISTI TURNER M.D. Performed By: #### L IPID, TSH3 wRFLX, [id number] #### [address] Estimated GFR ( Katrina 43 [facility] Comment on above: Result Comment: GFR estimated reference range: According to KDOQI guidelines, <60 ml/min/1.73m2 is sufficient to diagnose a patient with chronic kidney disease. Performed By: #### L IPID, TSH3 wRFLX, [id number] #### [place] [address] [place] Estimated GFR (Non- Am 35 [facility] Comment on above: Performed By: #### L IPID, TSH3 wRFLX, [id number] #### [facility] [address] [place] [address] Globulin (S) [Mass/Vol] 3.2 g/dL [facility] Comment on above: Performed By: #### L IPID, TSH3 wRFLX, [id number] #### [facility] [address] [place] [address] [place] Glucose [Mass/Vol] 95 mg/dL Normal 70-100 [facility] Comment on above: Result Comment: [place] om Glucose Reference Range is dependent on time and content of last meal. Glucose of more than 200 mg/dL in a nonstressed, ambulatory subject supports the diagnosis of Diabetes Mellitus. ADA recommended reference range Performed By: #### L IPID, TSH3 wRFLX, [id number] #### [facility] [address] [place] [address] Potassium [Moles/Vol] 3.9 mmol/L Normal 3.5-5.1 [facility] Comment on above: Performed By: #### L IPID, TSH3 wRFLX, [id number] #### [facility] [address] [place] [address] Protein [Mass/Vol] 7.1 g/dL Normal 6.1-7.9 [facility] Comment on above: Performed By: #### L IPID, TSH3 wRFLX, [id number] #### [facility] [address] [place] [address] Sodium [Moles/Vol] 140 mmol/L Normal 136-146 [facility] Comment on above: Performed By: #### L IPID, TSH3 wRFLX, [id number] #### [address] Urea nitrogen [Mass/Vol] 30 mg/dL High 9-23 [facility] Comment on above: Performed By: #### L IPID, TSH3 wRFLX, [id number] #### [address] Creatinine and Glomerular fi ltration rate.predicted panel (S/P/Bld)Ordered By: Ruby Penn on 03-11-2022 Creatinine [Mass/Vol] 1.49 mg/dL 0.44-1.03 [facility] Dipstick and Microscopicon 1 Appearance (U) Clear Normal Clear [facility] Comment on above: Order Comment: Name Collection Type:: Clean-Voided Midstream Performed By: #### C UU, ADDONUAPLUS, UHCG, URDS #### [facility] [address] [place] [address] Bacteria,Urine None Seen Normal None Seen [facility] Comment on above: Order Comment: Name Collection Type:: Clean-Voided Midstream Performed By: #### C UU, ADDONUAPLUS, UHCG, URDS #### [facility] [address] [place] [address] [place] Bilirubin,Urine Negative Normal Negative [facility] Comment on above: Order Comment: Name Collection Type:: Clean-Voided Midstream Performed By: #### C UU, ADDONUAPLUS, UHCG, URDS #### [facility] [address] [place] [address] Color (U) Yellow Normal Yellow [facility] Comment on above: Order Comment: Name Collection Type:: Clean-Voided Midstream Performed By: #### C UU, ADDONUAPLUS, UHCG, URDS #### [facility] [address] [place] [address] Glucose Ql (U) Normal Normal Normal [facility] Comment on above: Order Comment: Name Collection Type:: Clean-Voided Midstream Performed By: #### C UU, ADDONUAPLUS, UHCG, URDS #### [facility] [address] [place] [address] Hyaline Casts,Urine None Seen Normal 0-8 [facility] Comment on above: Order Comment: Name Collection Type:: Clean-Voided Midstream Performed By: #### C UU, ADDONUAPLUS, UHCG, URDS #### [facility] [address] [place] [address] Ketones Ql (U) Negative Normal Negative [facility] Comment on above: Order Comment: Name Collection Type:: Clean-Voided Midstream Performed By: #### C UU, ADDONUAPLUS, UHCG, URDS #### [facility] [address] [place] [address] Leukocyte esterase Test strip Ql (U) 3+ High Negative [facility] Comment on above: Order Comment: Name Collection Type:: Clean-Voided Midstream Performed By: #### C UU, ADDONUAPLUS, UHCG, URDS #### [facility] [address] [place] [address] [place] Nitrite,Urine Negative Normal Negative [facility] Comment on above: Order Comment: Name Collection Type:: Clean-Voided Midstream Performed By: #### C UU, ADDONUAPLUS, UHCG, URDS #### [address] Occult Blood,Urine Negative Normal Negative [facility] Comment on above: Order Comment: Name Collection Type:: Clean-Voided Midstream Performed By: #### C UU, ADDONUAPLUS, UHCG, URDS #### [address] pH (U) 6.5 [pH] Normal 5.0-9.0 [facility] Comment on above: Order Comment: Name Collection Type:: Clean-Voided Midstream Performed By: #### C UU, ADDONUAPLUS, UHCG, URDS #### [address] Protein,Urine Negative Normal Negative [facility] Comment on above: Order Comment: Name Collection Type:: Clean-Voided Midstream Performed By: #### C UU, ADDONUAPLUS, UHCG, URDS #### [address] RBC,Urine None Seen Normal 0-4 [facility] Comment on above: Order Comment: Name Collection Type:: Clean-Voided Midstream Performed By: #### C UU, ADDONUAPLUS, UHCG, URDS #### [address] Specificy [place],Urine 1.007 Normal 1.001-1.030 [facility] Comment on above: Order Comment: Name Collection Type:: Clean-Voided Midstream Performed By: #### C UU, ADDONUAPLUS, UHCG, URDS #### [address] Squamous Epithelial Cell,Urine 0-1 Normal 0-2 [facility] Comment on above: Order Comment: Name Collection Type:: Clean-Voided Midstream Performed By: #### C UU, ADDONUAPLUS, UHCG, URDS #### [facility] [address] [place] [address] Urobilinogen,Urine Normal Normal Normal [facility] Comment on above: Order Comment: Name Collection Type:: Clean-Voided Midstream Performed By: #### C UU, ADDONUAPLUS, UHCG, URDS #### [facility] [address] [place] [address] WBC,Urine -19 High 0-4 [facility] Comment on above: Order Comment: Name Collection Type:: Clean-Voided Midstream Performed By: #### C UU, ADDONUAPLUS, UHCG, URDS #### [facility] [address] [place] [address] Drug Screen,Urineon 03-11-20 Amphetamine Screen,Urine Negative Normal Negative [facility] Comment on above: Performed By: #### C UU, ADDONUAPLUS, UHCG, URDS #### [address] Barbiturate Screen,Urine Negative Normal Negative [facility] Comment on above: Performed By: #### C UU, ADDONUAPLUS, UHCG, URDS #### [facility] [address] [place] [address] Benzodiazepines Screen,Urine Negative Normal Negative [facility] Comment on above: Performed By: #### C UU, ADDONUAPLUS, UHCG, URDS #### [facility] [address] [place] [address] Cannabinoid Screen,Urine Negative Normal Negative [facility] Comment on above: Result Comment: Thes e are unconfirmed results and should not be used for legal purposes. Drug Cut-Off Concentration: AMPH 1000 ng/mL LAINA 200 ng/mL AYLEEN 200 ng/mL COCM 300 ng/mL OP 300 ng/mL PCP 25 ng/mL THC 20 ng/mL PERFORMED BY: [place] [address] PATHOLOGIST ST[employer]PER MAK[employer] HELPER KRISTI TURNER M.D. Performed By: #### C UU, ADDONUAPLUS, UHCG, URDS #### [facility] [address] Cocaine Screen,Urine Negative Normal Negative [facility] Comment on above: Performed By: #### C UU, ADDONUAPLUS, UHCG, URDS #### [facility] [address] Opiate Screen,Urine Negative Normal Negative [facility] Comment on above: Performed By: #### C UU, ADDONUAPLUS, UHCG, URDS #### [facility] [address] [place] [address] [place] Phencyclidine Screen,Urine Negative Normal Negative [facility] Comment on above: Performed By: #### C UU, ADDONUAPLUS, UHCG, URDS #### [facility] [address] Eosinophils Auto (Bld) [#/Vo l]Ordered By: Ruby Penn on 03-11-2022 Eosinophils (Bld) [#/Vol] 2.1 10*3/uL 0.0-0.45 [facility] Eosinophils/100 WBC Auto (Bl d)Ordered By: Ruby Penn on 03-11-2022 Eosinophils/100 WBC (Bld) 20.9 % . [facility] Erythrocyte distribution wid th Auto (RBC) [Ratio]Ordered By: Ruby Penn on 03-11-2022 Erythrocyte distribution width (RBC) [Ratio] 14.3 % 11.9-15.3 [facility] Estimated glomerular filtrat ion rate (GFR) non- AmericanOrdered By: Ruby Penn on 03-11-2022 GFR/1.73 sq M.predicted among non-blacks MDRD (S/P/Bld) [Vol rate/Area] 35 mL/Min [facility] Ethyl Alcohol Profileon Ethanol [Mass/Vol] mg/dL Normal [facility] Comment on above: Performed By: #### L IPID, TSH3 wRFLX, [id number] #### [facility] [address] Percent Ethanol Not performed Normal [facility] Comment on above: Result Comment: PERF ORMED BY: [place] [address] PATHOLOGIST ST[employer]PER MAK[employer] HELPER KRISTI TURNER M.D. Performed By: #### L IPID, TSH3 wRFLX, [id number] #### [facility] [address] [place] [address] Globulin Calc (S) [Mass/Vol] Ordered By: Ruby Penn on 03-11-2022 Globulin (S) [Mass/Vol] 3.2 g/dL [facility] HCG ( test) IA.rapi d Ql (U)Ordered By: Ruby Penn on 03-11-2022 HCG ( test) Ql (U) Negative [facility] HCG,Urineon 03-11-2022 Beta HCG ( test) Ql (U) Negative Normal [facility] Comment on above: Order Comment: Name Collection Type:: Clean-Voided Midstream Result Comment: PERF ORMED BY: [place] [address] PATHOLOGIST STOPPER MAKER HELPER KRISTI TURNER M.D. Performed By: #### C UU, ADDONUAPLUS, UHCG, URDS #### [facility] [address] [place], [place] [id number] [facility] Hematocrit Auto (Bld) [Volum e fraction]Ordered By: Ruby Penn on 03-11-2022 Hematocrit (Bld) [Volume fraction] 40.8 % 34.0-46.4 [facility] Ketones Auto test strip (U) [Mass/Vol]Ordered By: Ruby Penn on 03-11-2022 Ketones (U) [Mass/Vol] Negative Negative [facility] Laboratory - Drug toxicology Ordered By: Ruby Penn on 03-11-2022 Opiates Ql (U) Negative Negative [facility] Laboratory - Hematology and Cell countsOrdered By: Ruby Penn on 03-11-2022 Nucleated RBC/100 WBC (Bld) [Ratio] 0.1 % 0-0.5 [facility] Laboratory - UrinalysisOrder ed By: Ruby Penn on 03-11-2022 Hyaline casts LM Ql (Urine sed) None seen [LPF] 0-8 [facility] Lipid Panelon 03-11-2022 Cholesterol [Mass/Vol] 208 mg/dL High 140-200 [facility] Comment on above: Order Comment: Comme nt use ER blood Result Comment: Chol less than 200 mg/dl low risk Chol 201-239 mg/dl borderline risk Chol 240 mg/dl and greater high risk Performed By: #### L IPID, TSH3 wRFLX, [id number] #### [facility] [address] [place] [address] [place] Cholesterol in HDL [Mass/Vol] 58 mg/dL Normal 35-85 [facility] Comment on above: Order Comment: Comme nt use ER blood Result Comment: HDL CHOL ATP-III CLASSIFICATION Cardiovascular Risk HDL > or equal to 60 mg/dL LOW HDL < 40 mg/dL HIGH Performed By: #### L IPID, TSH3 wRFLX, [id number] #### [facility] [address] [place] [address] [place] Cholesterol.total/Chol esterol in HDL [Mass ratio] 3.6 {ratio} Normal <5.0 [facility] Comment on above: Order Comment: Comme nt use ER blood Performed By: #### L IPID, TSH3 wRFLX, [id number] #### [facility] [address] [place] [address] [place] LDL Cholesterol,Calculated 120 mg/dL High 0-100 [facility] Comment on above: Order Comment: Comme nt use ER blood Result Comment: LDL ATP III CLASSIFICATION LDL less than 100 mg/dL Optimal LDL 100-129 mg/dL Near or above optimal LDL 130-159 mg/dL Borderline high LDL 160-189 mg/dL High LDL greater than 189 mg/dL Very high Performed By: #### L IPID, TSH3 wRFLX, [id number] #### [facility] [address] [place] [address] [place] Triglyceride w/Reflex 152 mg/dL High 35-149 [facility] Comment on above: Order Comment: Comme nt use ER blood Result Comment: TRIG ATP III CLASSIFICATION TRIG less than 150 mg/dL Normal TRIG 150-199 mg/dL Borderline high TRIG 200-500 mg/dL High TRIG greater than 500 mg/dL Very high Standard traceable to the Center for Disease Conrtrol and Prevention (CDC) test method. Performed By: #### L IPID, TSH3 wRFLX, [id number] #### [facility] [address] VLDL CHOLESTEROL 30 mg/dL Normal [facility] Comment on above: Order Comment: Comme nt use ER blood Performed By: #### L IPID, TSH3 wRFLX, [id number] #### [facility] [address] Lymphocytes Auto (Bld) [#/Vo l]Ordered By: Ruby Penn on 03-11-2022 Lymphocytes (Bld) [#/Vol] 3.2 10*3/uL 1.00-4.8 [facility] Lymphocytes/100 WBC Auto (Bl d)Ordered By: Ruby Penn on 03-11-2022 Lymphocytes/100 WBC (Bld) 31.5 % . [facility] MCH Auto (RBC) [Entitic mass ]Ordered By: Ruby Penn on 03-11-2022 MCH (RBC) [Entitic mass] 30.7 pg 24.7-34.3 [facility] MCHC Auto (RBC) [Mass/Vol]Or dered By: Ruby Penn on 03-11-2022 MCHC (RBC) [Mass/Vol] 33.0 g/dL 32.0-35.0 [facility] MCV Auto (RBC) [Entitic vol] Ordered By: Ruby Penn on 03-11-2022 MCV (RBC) [Entitic vol] 93.2 fL 80-100 [facility] Monocytes Auto (Bld) [#/Vol] Ordered By: Ruby Penn on 03-11-2022 Monocytes (Bld) [#/Vol] 0.8 10*3/uL 0.0-0.8 [facility] Monocytes/100 WBC Auto (Bld) Ordered By: Ruby Penn on 03-11-2022 Monocytes/100 WBC (Bld) 8.2 % . [facility] Neutrophils Auto (Bld) [#/Vo l]Ordered By: Ruby Penn on 03-11-2022 Neutrophils (Bld) [#/Vol] 3.9 10*3/uL 1.8-7.7 [facility] Neutrophils/100 WBC Auto (Bl d)Ordered By: Ruby Penn on 03-11-2022 Neutrophils/100 WBC (Bld) 38.6 % . [facility] Nitrite Test strip Ql (U)Ord ered By: Ruby Penn on 03-11-2022 Nitrite Ql (U) Negative Negative [facility] No Panel InformationOrdered By: Marco A Zaman on 03-11-2022 25-Hydroxy Vitamin D Total 34.7 ng/mL 30-100 [facility] Comment on above: VITAMIN D STATUS 25( [place])VITAMIN D RANGE (ng/mL) Deficient <20 Insufficient 20 to <30Sufficient 30 to 100Reference: Monty MF,Hilda NC, Mariajose MARY, et al. Evaluation,treatment, and prevention of vitamin D deficiency; an Endocrine Society clinical practice guideline. JCEM. 2010; 96(7):1911-30. No Panel InformationOrdered By: Ruby Penn on 03-11-2022 Estimated GFR () 43 mL/Min [facility] Comment on above: GFR estimated refere nce range: According to KDOQI guidelines, <60 ml/min/1.73m2 is sufficient to diagnose a patient with chronic kidney disease. Pharmacy Creatinine Clearance (Chem 37.23 [facility] Platelet Estimate Normal Normal [facility] Platelet Morphology Comment Normal Normal [facility] SARS Antigen (LFIA) [facility] Phencyclidine Screen Ql (U)O rdered By: Ruby Penn on 03-11-2022 Phencyclidine Ql (U) Negative Negative [facility] Platelet mean volume Auto (B ld) [Entitic vol]Ordered By: Ruby Penn on 03-11-2022 Platelet mean volume (Bld) [Entitic vol] 8.8 fL 6.3-10.7 [facility] Platelets Auto (Bld) [#/Vol] Ordered By: Ruby Penn on 03-11-2022 Platelets (Bld) [#/Vol] 287 10*3/uL 150-450 [facility] Protein Auto test strip (U) [Mass/Vol]Ordered By: Ruby Penn on 03-11-2022 Protein (U) [Mass/Vol] Negative Negative [facility] Protein [Mass/volume] in Ser um or PlasmaOrdered By: Ruby Penn on 03-11-2022 Protein [Mass/Vol] 7.1 g/dL 6.1-7.9 [facility] RBC Auto (Bld) [#/Vol]Ordere d By: Ruby Penn on 03-11-2022 RBC (Bld) [#/Vol] 4.38 10*6/uL 3.60-5.00 [facility] RBC morphologyOrdered By: Joseph Penn on 03-11-2022 RBC morphology finding Nom (Bld) Normal [facility] Scan and CBCon 03-11-2022 Basophils (Bld) [#/Vol] 0.1 10*3/uL Normal 0.0-0.2 [facility] Comment on above: Performed By: #### L IPID, TSH3 wRFLX, [id number] #### [facility] [address] [place] [address] [place] Basophils/100 WBC (Bld) 0.8 % Normal . [facility] Comment on above: Performed By: #### L IPID, TSH3 wRFLX, [id number] #### [facility] [address] [place] [address] [place] Eosinophils (Bld) [#/Vol] 2.1 10*3/uL High 0.0-0.45 [facility] Comment on above: Performed By: #### L IPID, TSH3 wRFLX, [id number] #### [facility] [address] [place] [id number] [place] Eosinophils/100 WBC (Bld) 20.9 % Normal . [facility] Comment on above: Performed By: #### L IPID, TSH3 wRFLX, [id number] #### [address] Erythrocyte distribution width (RBC) [Ratio] 14.3 % Normal 11.9-15.3 [facility] Comment on above: Performed By: #### L IPID, TSH3 wRFLX, [id number] #### [address] Hematocrit (Bld) [Volume fraction] 40.8 % Normal 34.0-46.4 [facility] Comment on above: Performed By: #### L IPID, TSH3 wRFLX, [id number] #### [address] Hemoglobin (Bld) [Mass/Vol] 13.5 g/dL Normal 11.8-15.4 [facility] Comment on above: Performed By: #### L IPID, TSH3 wRFLX, [id number] #### [address] Lymphocytes (Bld) [#/Vol] 3.2 10*3/uL Normal 1.00-4.8 [facility] Comment on above: Performed By: #### L IPID, TSH3 wRFLX, [id number] #### [address] Lymphocytes/100 WBC (Bld) 31.5 % Normal . [facility] Comment on above: Performed By: #### L IPID, TSH3 wRFLX, [id number] #### [address] MCH (RBC) [Entitic mass] 30.7 pg Normal 24.7-34.3 [facility] Comment on above: Performed By: #### L IPID, TSH3 wRFLX, [id number] #### [address] MCV (RBC) [Entitic vol] 93.2 fL Normal 80-100 [facility] Comment on above: Performed By: #### L IPID, TSH3 wRFLX, [id number] #### [address] Mean Corpuscular HGB Conc 33.0 g/dL Normal 32.0-35.0 [facility] Comment on above: Performed By: #### L IPID, TSH3 wRFLX, [id number] #### [place] [address] [place] Monocytes (Bld) [#/Vol] 0.8 10*3/uL Normal 0.0-0.8 [facility] Comment on above: Performed By: #### L IPID, TSH3 wRFLX, [id number] #### [address] Monocytes/100 WBC (Bld) 8.2 % Normal . [facility] Comment on above: Performed By: #### L IPID, TSH3 wRFLX, [id number] #### [place] [address] [place] Neutrophils (Bld) [#/Vol] 3.9 10*3/uL Normal 1.8-7.7 [facility] Comment on above: Performed By: #### L IPID, TSH3 wRFLX, [id number] #### [address] Neutrophils/100 WBC (Bld) 38.6 % Normal . [facility] Comment on above: Performed By: #### L IPID, TSH3 wRFLX, [id number] #### [place] [address] [place] Nucleated RBC/100 WBC (Bld) [Ratio] 0.1 % Normal 0-0.5 [facility] Comment on above: Performed By: #### L IPID, TSH3 wRFLX, [id number] #### [place] [address] [place] Platelet Estimate Normal Normal Normal [facility] Comment on above: Performed By: #### L IPID, TSH3 wRFLX, [id number] #### [facility] [address] [place] [address] Platelet mean volume (Bld) [Entitic vol] 8.8 fL Normal 6.3-10.7 [facility] Comment on above: Performed By: #### L IPID, TSH3 wRFLX, [id number] #### [address] Platelet Morphology Normal Normal Normal [facility] Comment on above: Result Comment: PERF ORMED BY: [place] [address] PATHOLOGIST [employer] KRISTI TURNER M.D. Performed By: #### L IPID, TSH3 wRFLX, [id number] #### [address] Platelets (Bld) [#/Vol] 287 10*3/uL Normal 150-450 [facility] Comment on above: Performed By: #### L IPID, TSH3 wRFLX, [id number] #### [address] RBC (Bld) [#/Vol] 4.38 10*6/uL Normal 3.60-5.00 [facility] Comment on above: Performed By: #### L IPID, TSH3 wRFLX, [id number] #### [address] RBC morphology finding Nom (Bld) Normal Normal [facility] Comment on above: Performed By: #### L IPID, TSH3 wRFLX, [id number] #### [address] WBC (Bld) [#/Vol] 10.1 10*3/uL Normal 4.5-11.0 [facility] Comment on above: Performed By: #### L IPID, TSH3 wRFLX, [id number] #### [address] Serum or plasma alanine arora otransferase measurement without P-5'-P (enzymatic activiOrdered By: Ruby Penn on 03-11-2022 ALT No additional P-5'-P [Catalytic activity/Vol] 22 U/L 1060 [facility] Serum or plasma albumin/glob ulin mass ratioOrdered By: Ruby Penn on 03-11-2022 Albumin/Globulin [Mass ratio] 1.2 {ratio} [facility] Serum or plasma alkaline lashaun sphatase measurement (enzymatic activity/volume)Ordered By: Ruby Penn on 03-11-2022 ALP [Catalytic activity/Vol] 45 U/L 32-92 [facility] Serum or plasma anion gap de terminationOrdered By: Ruby Penn on 03-11-2022 Anion gap [Moles/Vol] 17.0 mmol/L 6.0-15.0 [facility] Serum or plasma aspartate am inotransferase measurement (enzymatic activity/volume)Ordered By: Ruby Penn on 03-11-2022 AST [Catalytic activity/Vol] 21 U/L 10 [facility] Serum or plasma calcium sunil urement (mass/volume)Ordered By: Ruby Penn on 03-11-2022 Calcium [Mass/Vol] 10.1 mg/dL 8.2-10.2 [facility] Serum or plasma chloride leo surement (moles/volume)Ordered By: Ruby Penn on 03-11-2022 Chloride [Moles/Vol] 102 mmol/L 95-114 [facility] Serum or plasma ethanol snuil urement (mass/volume)Ordered By: Ruby Penn on 03-11-2022 Ethanol [Mass/Vol] mg/dL [facility] Ethanol [Mass/Vol] TNP [facility] Comment on above: Test not performed Serum or plasma glucose sunil urement (mass/volume)Ordered By: Ruby Penn on 03-11-2022 Glucose [Mass/Vol] 95 mg/dL 70-100 [facility] Comment on above: ADA recommended refe rence rangeRandom Glucose Reference Range is dependent on time and content of last meal. Glucose of more than 200 mg/dL in a nonstressed, ambulatory subject supports the diagnosis of Diabetes Mellitus. Serum or plasma high density lipoprotein (HDL) cholesterol measurementOrdered By: Marco A Zaman on 03-11-2022 Cholesterol in HDL [Mass/Vol] 58 mg/dL 35-85 [facility] Comment on above: HDL CHOL ATP-III CLA SSIFICATION Cardiovascular RiskHDL > or equal to 60 mg/dL LOWHDL < 40 mg/dL HIGH Serum or plasma potassium me asurement (moles/volume)Ordered By: Ruby Penn on 03-11-2022 Potassium [Moles/Vol] 3.9 mmol/L 3.5-5.1 [facility] Serum or plasma sodium measu rement (moles/volume)Ordered By: Ruby Penn on 03-11-2022 Sodium [Moles/Vol] 140 mmol/L 136-146 [facility] Serum or plasma total biliru bin measurement (mass/volume)Ordered By: Ruby Penn on 03-11-2022 Bilirubin [Mass/Vol] 0.8 mg/dL 0.3-1.2 [facility] Serum or plasma total carbon dioxide measurement (moles/volume)Ordered By: Ruby Penn on 03-11-2022 CO2 [Moles/Vol] 24.9 mmol/L 22.0-30.[address] [facility] Serum or plasma total choles terol/high density lipoprotein (HDL) cholesterol mass ratOrdered By: Marco A Zaamn on 03-11-2022 Cholesterol.total/Chol esterol in HDL [Mass ratio] 3.6 {ratio} <5.0 [facility] Serum or plasma urea nitroge n measurement (mass/volume)Ordered By: Ruby Penn on 03-11-2022 Urea nitrogen [Mass/Vol] 30 mg/dL 9- [facility] Demetria Ag Negativeon 03-11-20 Demetria Ag Negative Negative Normal Negative [facility] Comment on above: Result Comment: This is a duplicate Demetria SARS Antigen (MERARY) result to be used for statistical tracking purpose only. PERFORMED BY: [place] [address] [place] [address] PATHOLOGIST [employer] KRISTI TURNER M.D. Performed By: #### L IPID, TSH3 wRFLX, [id number] #### [facility] [address] Specific gravity Auto test s trip (U) [Rel density]Ordered By: Ruby Penn on 03-11-2022 Specific gravity (U) [Rel density] 1.007 1.001-1.030 [facility] Squamous epithelial cells de tection in urine sediment by light microscopyOrdered By: Ruby Penn on 03-11-2022 Epithelial cells.squamous LM Ql (Urine sed) 0-1 [HPF] 0-2 [facility] TSH DL <= 0.005 mIU/L QnOrde red By: Marco A Zaman on 03-11-2022 TSH Qn 1.67 m[IU]/L 0.45-5.33 [facility] Thyroid Stim Hormone w/Rflxo n 03-11-2022 Thyroid Stim Hormone w/Rflx 1.67 u[iU]/mL Normal 0.45-5.33 [facility] Comment on above: Order Comment: Comme nt use ER blood Performed By: #### L IPID, TSH3 wRFLX, [id number] #### [facility] [address] [place] [address] Triglyceride [Mass/volume] i n Serum or PlasmaOrdered By: Marco A Zaman on 03-11-2022 Triglyceride [Mass/Vol] 152 mg/dL 35-149 [facility] Comment on above: TRIG ATP III CLASSIF ICATIONTRIG less than 150 mg/dL NormalTRIG 150-199 mg/dL Borderline highTRIG 200-500 mg/dL High TRIG greater than 500 mg/dL Very highStandard traceable to the Center for Disease Conrtrol and Prevention (CDC) test method. Urine Cultureon 03-11-2022 Bacteria identified Cx Nom (U) 25,000 colonies/ml mixed bacterial skin contaminants 2 Days PERFORMED BY: [place] [address] PATHOLOGIST [employer] KRISTI TURNER M.D. [facility] Comment on above: Performed By: #### C UU, ADDONUAPLUS, UHCG, URDS #### [facility] [address] Urine bacteria detection by automated methodOrdered By: Ruby Penn on 03-11-2022 Bacteria Auto Ql (U) None seen None Seen [facility] Urine clarity by refractomet ry automatedOrdered By: Ruby Penn on 03-11-2022 Clarity Refractometry automated (U) Clear Clear [facility] Urine cocaine detectionOrder ed By: Ruby Penn on 03-11-2022 Cocaine Ql (U) Negative Negative [facility] Urine glucose measurement by automated test strip (mass/volume)Ordered By: Ruby Penn on 03-11-2022 Glucose Auto test strip (U) [Mass/Vol] Normal mg/dL Normal [facility] Urine hemoglobin detection b y automated test stripOrdered By: Ruby Penn on 03-11-2022 Hemoglobin Auto test strip Ql (U) Negative Negative [facility] Urine leukocyte esterase det ection by automated test stripOrdered By: Ruby Penn on 03-11-2022 Leukocyte esterase Auto test strip Ql (U) 3+ Negative [facility] Urobilinogen Auto test strip (U) [Mass/Vol]Ordered By: Ruby Penn on 03-11-2022 Urobilinogen (U) [Mass/Vol] Normal mg/dL Normal [facility] Vitamin D 25 Hydroxy Totalon 03-11-2022 Vitamin D 25 Hydroxy Total 34.7 ng/mL Normal 30-100 [facility] Comment on above: Order Comment: Comme nt use ER blood Result Comment: JUAN MIN D STATUS 25([place])VITAMIN D RANGE (ng/mL) Deficient <20 Insufficient 20 to <30 Sufficient 30 to 100 Reference: Monty MF,Hilda NC, Mariajose MARY, et al. Evaluation,treatment, and prevention of vitamin D deficiency; an Endocrine Society clinical practice guideline. JCEM. 2010; 96(7):1911-30. PERFORMED BY: [facility] [address] [place] [address] PATHOLOGIST [employer] JIANLAN SUN M.D. Performed By: #### L IPID, TSH3 wRFLX, [id number] #### [facility] [address] pH Auto test strip (U)Ordere d By: Ruby Penn on 03-11-2022 pH (U) 6.5 [pH] 5.0-9.0 [facility] RENAL FUNCTION PANELon 01-22 Albumin [Mass/Vol] 3.5 g/dL Normal 3.4-5.0 [facility] Comment on above: Performed By: #### R ENAL #### [facility] [address] [place] [address] [address] Emanuel Degroot Calcium [Mass/Vol] 9.5 mg/dL Normal 8.5-10.1 [facility] Comment on above: Performed By: #### R ENAL #### [facility] [address] [place] [address] [address] Emanuel Degroot Chloride [Moles/Vol] 107 mmol/L Normal 98-107 [facility] Comment on above: Performed By: #### R ENAL #### [facility] [address] [place] [address] [address] Emanuel Degroot CO2 [Moles/Vol] 28.6 mmol/L Normal 21.0-32.0 [facility] Comment on above: Performed By: #### R ENAL #### [facility] [address] [place] [address] [address] Emanuel Degroot Creatinine [Mass/Vol] 1.35 mg/dL Critically high 0.55-1.02 [facility] Comment on above: Performed By: #### R ENAL #### [facility] [address] [place] [address] [address] Emanuel Degroot EGFR-AF AZERBAIJANI 48 mL/min/1.73m2 Critically low >=60 [facility] Comment on above: Performed By: #### R ENAL #### [facility] [address] [place] [address] [address] Emanuel Degroot EGFR-NON AF AZERBAIJANI 40 mL/min/1.73m2 Critically low >=60 [facility] Comment on above: Performed By: #### R ENAL #### [facility] [address] [place] [address] [address] Emanuel Degroot Glucose [Mass/Vol] 141 mg/dL Critically high 74-106 [facility] Comment on above: Performed By: #### R ENAL #### [facility] [address] [place] [address] [address] Emanuel Degroot Phosphate [Mass/Vol] 3.8 mg/dL Normal 2.6-4.7 [facility] Comment on above: Performed By: #### R ENAL #### [facility] [address] [place] [address] [address] Emanuel Degroot Potassium [Moles/Vol] 3.8 mmol/L Normal 3.5-5.1 [facility] Comment on above: Performed By: #### R ENAL #### [facility] [address] [place] [address] [address] Emanuel Degroot Sodium [Moles/Vol] 143 mmol/L Normal 136-145 [facility] Comment on above: Performed By: #### R ENAL #### [facility] [address] [place] [address] [address] Emanuel Degroot Urea nitrogen [Mass/Vol] 29.0 mg/dL Critically high 7.0-18.0 [facility] Comment on above: Performed By: #### R ENAL #### [facility] [address] [place] [address] [address] Emanuel Degroot XR ANKLE RT MIN 3 VIEWSon XR ANKLE RT MIN 3 VIEWS EXAMINATION: XR ANKLE RT MIN 3 VIEWS REASON FOR EXAM: Unspecified fall 3 views. FINDINGS: There is a fracture of the distal fibula at about the tibial plafond. The fracture fragments are by 3 mm. There is no fracture of the distal tibia or talus. Very slight lateral displacement of the talus by 2 mm. IMPRESSION: Alicia type B fracture of the distal fibula. Slight lateral subluxation of the talus with respect to the tibia by 2 mm. Electronically authenticated by: MIR HENRY Date: 2021-12-07 18:21 Normal [facility] LITHIUMon 12-06-2021 [place] (Eskalith(R)), Serum <0.1 Critically low 0.5-1.2 [facility] Comment on above: Result Comment: Plas ma concentration of 0.5 - 0.8 mmol/L are advised for long-term use; concentrations of up to 1.2 mmol/L may be necessary during acute treatment. Verified by repeat analysis Detection Limit = 0.1 <0.1 indicates None Detected Performed By: #### L ITHIUM #### [facility] [address] [place], [place] [address] Dr. Emanuel Degroot LIPID PROFILEon 12-05-2021 CHOL-HDL RATIO NORM SEE BELOW Normal [facility] Comment on above: Result Comment: 3.3 - 4.4 LOW RISK 4.4 - 7.1 AVERAGE RISK 7.1 - 11.0 MODERATE RISK >11.0 HIGH RISK Performed By: #### L IPID, CMP, TSH ####[facility] [id number] [place] [id number] Emanuel Degroot Cholesterol [Mass/Vol] 264 mg/dL Critically high <=200 [facility] Comment on above: Performed By: #### L IPID, CMP, TSH ####[facility] [id number] [place] [id number] Degroot Cholesterol in HDL [Mass/Vol] 76 mg/dL Critically high 40-60 [facility] Comment on above: Performed By: #### L IPID, CMP, TSH ####[facility] [address] [place] [id number]. mEanuel Degroot Cholesterol in LDL [Mass/Vol] 171.2 mg/dL Normal [facility] Comment on above: Performed By: #### L IPID, CMP, TSH ####[facility] [id number] [place] [id number] Degroot Cholesterol.total/Chol esterol in HDL [Mass ratio] 3.5 {ratio} Normal [facility] Comment on above: Performed By: #### L IPID, CMP, TSH ####[facility] [address] [place] [id number] Degroot HDL NORMAL > or = 60 mg/dl - LO W CARDIOVASCULAR RISK <40 mg/dl - HIGH CARDIOVASCULAR RISK Normal [facility] Comment on above: Performed By: #### L IPID, CMP, TSH ####[facility] [address] [place] [id number] Degroot LDL CALC NORMAL SEE BELOW Normal [facility] Comment on above: Result Comment: <100 mg/dl OPTIMAL 100 - 129 mg/dl NEAR OR ABOVE OPTIMAL 130 - 159 mg/dl BORDERLINE HIGH 160 - 189 mg/dl HIGH >190 mg/dl VERY HIGH Performed By: #### L IPID, CMP, TSH ####[facility] [address] [place] [id number]. Emanuel Degroot Triglyceride [Mass/Vol] 84 mg/dL Normal <=150 [facility] Comment on above: Performed By: #### L IPID, CMP, TSH ####[facility] [address] [place] [id number]. Emanuel Degroot VLDL CALC 16.8 mg/dL Normal [facility] Comment on above: Performed By: #### L IPID, CMP, TSH ####[facility] [address] [place] [id number]. Emanuel Degroot PROF 14(COMP METB)on 022 Albumin [Mass/Vol] 3.8 g/dL Normal 3.4-5.0 [facility] Comment on above: Performed By: #### L IPID, CMP, TSH #### [facility] [address] [place] [address] [address] Emanuel Degroot Albumin/Globulin [Mass ratio] 1.1 {ratio} Normal [facility] Comment on above: Performed By: #### L IPID, CMP, TSH #### [facility] Laboratory [address] [place] [address] [address] Emanuel Degroot ALP [Catalytic activity/Vol] 32 U/L Critically low 46-116 [facility] Comment on above: Performed By: #### L IPID, CMP, TSH #### [facility] [address] [place] [address] [address] Emanuel Degroot ALT [Catalytic activity/Vol] 28 U/L Normal 14-59 [facility] Comment on above: Performed By: #### L IPID, CMP, TSH #### [facility] Laboratory [address] [place] [address] Dr. Emanuel Degroot Anion gap [Moles/Vol] 11.0 mmol/L Normal Th e [facility] Comment on above: Performed By: #### L IPID, CMP, TSH #### [facility] Laboratory [address] [place] [address] Dr. Emanuel Degroot AST [Catalytic activity/Vol] 16 U/L Normal 15-37 [facility] Comment on above: Performed By: #### L IPID, CMP, TSH #### [facility] [address] [place] [address] Dr. Emanuel Degroot Bilirubin [Mass/Vol] 0.3 mg/dL Normal 0.2-1.0 [facility] Comment on above: Performed By: #### L IPID, CMP, TSH #### [facility] [address] [place] [address] Dr. Emanuel Degroot Calcium [Mass/Vol] 9.7 mg/dL Normal 8.5-10.1 [facility] Comment on above: Performed By: #### L IPID, CMP, TSH #### [facility] [address] [place] [address] Dr. Emanuel Degroot Chloride [Moles/Vol] 105 mmol/L Normal 98-107 [facility] Comment on above: Performed By: #### L IPID, CMP, TSH #### [facility] [address] [place] [address] Dr. Emanuel Degroot CO2 [Moles/Vol] 30.4 mmol/L Normal 21.0-32.0 [facility] Comment on above: Performed By: #### L IPID, CMP, TSH #### [facility] [address] [place] [address] Dr. Emanuel Degroot Creatinine [Mass/Vol] 1.40 mg/dL Critically high 0.55-1.02 [facility] Comment on above: Performed By: #### L IPID, CMP, TSH #### [facility] Laboratory [address] [place] [address] [address] Emanuel Degroot EGFR-AF AZERBAIJANI 46 mL/min/1.73m2 Critically low >=60 [facility] Comment on above: Performed By: #### L IPID, CMP, TSH #### [facility] [address] [address] [address] Emanuel Degroot EGFR-NON AF AZERBAIJANI 38 mL/min/1.73m2 Critically low >=60 [facility] Comment on above: Performed By: #### L IPID, CMP, TSH #### [facility] [address] [place] [address] [address] Emanuel Degroot Globulin (S) [Mass/Vol] 3.6 g/dL Normal [facility] Comment on above: Performed By: #### L IPID, CMP, TSH #### [facility] [address] [place] [address] [address] Emanuel Degroot Glucose [Mass/Vol] 98 mg/dL Normal 74-106 [facility] Comment on above: Performed By: #### L IPID, CMP, TSH #### [facility] [address] [place] [address] [address] Emanuel Degroot Potassium [Moles/Vol] 4.4 mmol/L Normal 3.5-5.1 [facility] Comment on above: Performed By: #### L IPID, CMP, TSH #### [facility] [address] [place] [address] [address] Emanuel Degroot Protein [Mass/Vol] 7.4 g/dL Normal 6.4-8.2 [facility] Comment on above: Performed By: #### L IPID, CMP, TSH #### [facility] [address] [place] [address] [address] Emanuel Degroot Sodium [Moles/Vol] 142 mmol/L Normal 136-145 [facility] Comment on above: Performed By: #### L IPID, CMP, TSH #### [facility] [address] [place] [address] [address] Emanuel Degroot Urea nitrogen [Mass/Vol] 25.0 mg/dL Critically high 7.0-18.0 [facility] Comment on above: Performed By: #### L IPID, CMP, TSH #### [facility] [address] [address] [address] Emanuel Degroot Urea nitrogen/Creatinine [Mass ratio] 17.9 mg/mg Normal [facility] Comment on above: Performed By: #### L IPID, CMP, TSH #### [facility] [address] [address] [address] Emanuel Degroot TSHon 12-05-2021 TSH 1.960 uIU/mL Normal 0.358-3.740 [facility] Comment on above: Performed By: #### L IPID, CMP, TSH ####[facility] [address] [place] [address]Dr. Emanuel Degroot PTH INTACTon 09-22-2021 PTH, Intact 103 pg/mL Critically high 15-65 [facility] Comment on above: Performed By: #### P THINT ####[facility] [address] [place] [address]DrAleah Degroot HEMOGRAM AND PLATELon 2021 Hematocrit (Bld) [Volume fraction] 37.8 % Normal 36.0-48.0 [facility] Comment on above: Performed By: #### H H ####[facility] [address] [place] [address]DrAleah Degroot Hemoglobin (Bld) [Mass/Vol] 11.8 g/dL Critically low 12.0-16.0 [facility] Comment on above: Performed By: #### H H ####[facility] [address] [place] [address]DrAleah Degroot MCH (RBC) [Entitic mass] 31.7 pg Normal 26.7-34.0 [facility] Comment on above: Performed By: #### H H ####[facility] [address] [place] [address]DrAleah Degroot MCHC (RBC) [Mass/Vol] 31.2 g/dL Normal 29.9-35.2 [facility] Comment on above: Performed By: #### H H ####[facility] [address] [place] [id number]. Emanuel Degroot MCV (RBC) [Entitic vol] 101.6 fL Critically high 81.0-99.0 [facility] Comment on above: Performed By: #### H H ####[facility] [address] [place] [id number]. Emanuel Degroot PLT 237 103/ul Normal 150-450 [facility] Comment on above: Performed By: #### H H ####[facility] [address] [place] [id number]. Emanuel Degroot RBC 3.72 106/ul Critically low 4.20-5.40 [facility] Comment on above: Performed By: #### H H ####[facility] [address] [place] [id number]. Emanuel Degroot WBC 7.8 103/ul Normal 4.0-11.0 [facility] Comment on above: Performed By: #### H H ####[facility] [address] [place] [id number]. Emanuel Degroot MAGNESIUMon 09-21-2021 Magnesium [Mass/Vol] 2.4 mg/dL Critically high 1.6-2.3 [facility] Comment on above: Performed By: #### R ENAL, MG #### [facility] Laboratory [address] [place] [address] [address] Emanuel Dergoot RENAL FUNCTION PANELon 09-21 Albumin [Mass/Vol] 3.5 g/dL Normal 3.4-5.0 [facility] Comment on above: Performed By: #### R ENAL, MG #### [facility] Laboratory [address] [place] [address] [address] Emanuel Degroot Calcium [Mass/Vol] 9.4 mg/dL Normal 8.5-10.1 [facility] Comment on above: Performed By: #### R ENAL, MG #### [facility] Laboratory [address] [place] [address] [address] Emanuel Degroot Chloride [Moles/Vol] 104 mmol/L Normal 98-107 [facility] Comment on above: Performed By: #### R ENAL, MG #### [facility] Laboratory [address] [place] [address] Dr. Emanuel Degroot CO2 [Moles/Vol] 28.4 mmol/L Normal 22.0-30.0 [facility] Comment on above: Performed By: #### R ENAL, MG #### [facility] Laboratory [address] [place] [address] Dr. Emanuel Degroot Creatinine [Mass/Vol] 1.58 mg/dL Critically high 0.52-1.04 [facility] Comment on above: Performed By: #### R ENOSKAR, MG #### [facility] [address] [place] [address] Dr. Emanuel Degroot EGFR-AF AZERBAIJANI 40 mL/min/1.73m2 Critically low >=60 [facility] Comment on above: Performed By: #### R ENOSKAR, MG #### [facility] [address] [place] [address] Dr. Emanuel Degroot EGFR-NON AF AZERBAIJANI 33 mL/min/1.73m2 Critically low >=60 [facility] Comment on above: Performed By: #### R ENAL, MG #### [facility] [address] [place] [address] Dr. Emanuel Degroot Glucose [Mass/Vol] 83 mg/dL Normal 74-106 [facility] Comment on above: Performed By: #### R ENOSKAR, MG #### [facility] [address] [place] [address] Dr. Emanuel Degroot Phosphate [Mass/Vol] 4.4 mg/dL Normal 2.5-4.5 [facility] Comment on above: Performed By: #### R ENAL, MG #### [facility] [address] [place] [address] Dr. Emanuel Degroot Potassium [Moles/Vol] 3.9 mmol/L Normal 3.4-5.0 [facility] Comment on above: Performed By: #### R ENAL, MG #### [facility] [address] [place] [address] Dr. Emanuel Degroot Sodium [Moles/Vol] 139 mmol/L Normal 137-145 [facility] Comment on above: Performed By: #### R REANNA, MG #### [facility] [address] [place] [address] Dr. Emanuel Degroot Urea nitrogen [Mass/Vol] 28.0 mg/dL Critically high 7.0-18.0 [facility] Comment on above: Performed By: #### R REANNA, MG #### [facility] [address] [place] [address] Dr. Emanuel Degroot UA RANDOM W/MICROSCOPICon BACTERIA NONE SEEN Normal NONE SEEN [facility] Comment on above: Performed By: #### U AMIC #### [facility] [address] [place] [address] Dr. Emanuel Degroot Bilirubin Ql (U) Negative Normal NEGATIVE [facility] Comment on above: Performed By: #### U AMIC #### [facility] [address] [place] [address] Dr. Emanuel Degroot CAST NONE SEEN Normal NONE SEEN [facility] Comment on above: Performed By: #### U AMIC #### [facility] [address] [place] [address] Dr. Emanuel Degroot Clarity (U) CLEAR Normal CLEAR [facility] Comment on above: Performed By: #### U AMIC #### [facility] [address] [place] [address] Dr. Emanuel Degroot Color (U) LT. YELLOW Normal YELLOW [facility] Comment on above: Performed By: #### U AMIC #### [facility] [address] [place] [address] Dr. Emanuel Degroot Crystals LM Nom (Urine sed) NONE SEEN Normal NONE SEEN [facility] Comment on above: Performed By: #### U AMIC #### [facility] [address] [place] [address] Dr. Emanuel Degroot Epithelial cells LM Ql (Urine sed) MODERATE Abnormal NONE SEEN /RARE [facility] Comment on above: Performed By: #### U AMIC #### [facility] [address] [place] [address] [address] Emanuel Degroot Glucose Ql (U) Negative Normal NEGATIVE [facility] Comment on above: Performed By: #### U AMIC #### [facility] [address] [place] [address] [address] Emanuel Degroot Hemoglobin Ql (U) Negative Normal NEGATIVE [facility] Comment on above: Performed By: #### U AMIC #### [facility] [address] [place] [address] [address] Emanuel Degroot Ketones Ql (U) Negative Normal NEGATIVE [facility] Comment on above: Performed By: #### U AMIC #### [facility] [address] [place] [address] [address] Emanuel Degroot LEUKOCYTES SMALL Abnormal NEGATIVE [facility] Comment on above: Performed By: #### U AMIC #### [facility] [address] [place] [address] Dr. Emanuel Degroot MUCOUS NONE SEEN Normal NONE SEEN [facility] Comment on above: Performed By: #### U AMIC #### [facility] [address] [place] [address] Dr. Emanuel Degroot Nitrite Ql (U) Negative Normal NEGATIVE [facility] Comment on above: Performed By: #### U AMIC #### [facility] [address] [place] [address] Dr. Emanuel Degroot pH (U) 6.5 [pH] Normal 5-9 [facility] Comment on above: Performed By: #### U AMIC #### [facility] [address] [place] [address] Dr. Emanuel Degroot RBC NONE SEEN Abnormal 0-2 [facility] Comment on above: Performed By: #### U AMIC #### [facility] [address] [place] [address] Dr. Emanuel Degroot SPEC GRAVITY 1.010 Normal 1.005-<=1.0 25 [facility] Comment on above: Performed By: #### U AMIC #### [facility] [address] [place] [address] Dr. Emanuel Degroot UA PROTEIN Negative Normal NEGATIVE/ TRACE [facility] Comment on above: Performed By: #### U AMIC #### [facility] [address] [place] [address] [address] Emanuel Degroot Urobilinogen Qn (U) 0.2 {Destiny'U}/dL Normal 0.2 - 1. 0 [facility] Comment on above: Performed By: #### U AMIC #### [facility] [address] [place] [address] [address] Emanuel Degroot WBC 2-5 Abnormal NONE SEEN [facility] Comment on above: Performed By: #### U AMIC #### [facility] [address] [place] [address] Dr. Emanuel Degroot URINE T PROTEIN CREAT RATIOo n 09-21-2021 UR PROT CREAT RAT 0.19 Normal [facility] Comment on above: Result Comment: unab le to calculate Performed By: #### U RTPCR ####[facility] [address] [place], [place] [address]Dr. Emanuel Degroot UR TOTAL PROTEIN <5.0 Normal <=12.0 [facility] Comment on above: Performed By: #### U RTPCR ####[facility] [address] [place], [place] [address]Dr. Emanuel Degroot URINE CREAT 26.13 mg/dL Normal 20.00-300.0 0 [facility] Comment on above: Performed By: #### U RTPCR ####[facility] [address] [place], [place] [address]Dr. Emanuel Degroot VITAMIN D 25 OHon 09-21-2021 VIT D 25-OH 43.1 ng/mL Normal [facility] Comment on above: Performed By: #### V ITAD ####[facility] [address] [place] [address]Dr. Emanuel Degroot VIT D RANGES SEE BELOW Normal [facility] Comment on above: Result Comment: <20 ng/mL Vit D deficient 20 - <30 ng/mL Vit D insufficient 30 - 100 ng/mL Vit D sufficient >100 ng/mL Potential Toxicity Performed By: #### V ITAD ####[facility] [address] [place], [place] [address]GdAleah Degroot XR knee LT 4V*on 05-06-2021 XR knee LT 4V* [facility] [place] [address] [place], [place] [id number] XRay Report Signed Patient: Nola Bautista MR#: [id number] : 1960 Acct:[id number] Age/Sex: 60 / F ADM Date: 05/06/21 Loc: XDUCLY Room: Type: [facility] Attending Dr: Geneva MONAE Ordering Provider: DOV Belcher Date of Service: 05/06/21 XR/XR knee LT 4V*: Acute pain of left knee Copies to: DOV Belcher LEFT KNEE - 4 views CLINICAL DATA: Patient fell down stairs today landing on left knee. Pain and swelling over the patella. COMPARISON: None AP, lateral and both oblique views were obtained. There is subtle linear lucency traversing the lateral patella suggesting a possible nondisplaced fracture There is no additional fracture or dislocation. There is no disproportionate joint space narrowing. There is mild tricompartment marginal spurring. There is slight irregularity at the posterior facets of the patella and chondromalacia is possible. There is a small knee effusion. XR/XR knee LT 4V* IMPRESSION: MILD DEGENERATIVE CHANGES. POSSIBLE NONDISPLACED PATELLAR FRACTURE. FOCAL CLINICAL CORRELATION IS SUGGESTED. Impression dictated by: Emy Wang M.D.05/06/2021 4:41 PM Dictation Location: [place] [address] Transcribed By: [facility] 05/06/21 1641 Dictated By: Emy Wang MD 05/06/21 1639 Signed By: 05/06/21 1641 Normal [facility] Video Visit - Telehealtho n 04-22-2020 Video Visit - Telehealth Chief Complaint Medication Recheck Subjective Interval History/HPI This visit was conducted via two-way, real-time interactive video communications from my office using [employer] due to the restrictions of the COVID-19 pandemic. No physical exam was conducted other than those areas of the body visible to telecommunications with the patient located at [address] [place] [phone], with spouse in attendance. If it is determined that the patient should be evaluated in the clinic, the patient will be directed to the appropriate clinic or venue. The patient or their guardian verbally consented to this visit. Video time was 10 minutes with the patient face to face greater than 50% in addition to counseling and coordination of care. Patient is seen via video conferencing, audiovisual quality was fair, patient was able to engage and answer questions appropriately. Spouse reports no new issues to concerns. He reports patient has had no major decline in her moods or behavior since she was last seen here. He has not witnessed any psychotic symptoms or features and patient has not been talking about paranoia or any hallucinations. Patient also reports she is doing okay and has been active and volunteering and she denied ongoing sadness or depressed moods. Reports fair energy and fair motivation. She has been active and taking care of her daily ADLS and Chores. Patient reports she is not having any tearful crying episodes. Denied any excessive fatigue or tiredness during the day. Normal Appetite reported and sex drive is within normal limits. Denied any issues with falling or staying asleep. She denied feeling hopeless or worthless and denies ongoing morbid thoughts. Denies ongoing suicidal ideation, intent and plan. She is not experiencing manic mood symptoms at present. She denies having pervasive irritable or elated moods. She is not complaining of ongoing FOI or racing thoughts or distractibility. Patient denies any ongoing increased goal-directed activities or increased dizziness. Speech was within normal limits. There is no ongoing psychomotor agitation. She also reports no ongoing excessive worry or anxiety. She has been able to cope well with the stress. She denies any ongoing psychosis or any command hallucinations. There is no ongoing aggressive thoughts or thoughts of hurting other people No ongoing alcohol or drug abuse reported by pt. Interpersonal issues were discussed: Support provided Insight Oriented/ behavior modifying/ Supportive Therapy: XXX Mood Assessment: Mood stability is present. There are no ongoing pervasive manic or depressive mood symptoms present. No islam preoccupation or any other psychotic symptoms present. Medication Assessment: Pt reports good compliance. Continue with the same plan. Patient denies any ongoing side effects. ISP - Goals and Objectives of Treatment: Maintain baseline mood stability Maintain good anxiety control Medication and Treatment Compliance Prevent hospitalizations and prevent psychosis Review of Systems ROS - Provider Constitutional: no fever, no chills, no sweats, no weakness Respiratory: no shortness of breath, no cough Cardiovascular: no chest pain Mental Status Exam Appearance.: Appropriately dressed and groomed, appears stated age Behavior/Motor Activity: , cooperative BH Speech: Normal rate Affect: reserved Mood:'okay' Thought Process/Associations: Logical and goal directed Thought Content.: Non-psychotic Cognition/Attention/Memor y/Concentration: Alert and oriented x3 Insight/Judgement:limited to fair Suicidal: Denies ongoing suicidal ideation, intent and plan. Homicidal: Denied ongoing homicidal ideations, intent or plan. Language: Within normal limits Fund of Knowledge: Adequate Risk Assessment Currently at low risk of self harm. Denied ongoing feelings of hopelessness. Denies ongoing suicidal ideation, intent and plan in session Diagnosis/Assessment/Apryl tment Plan 1. Bipolar I disorder, current or most recent episode depressed, in partial remission with mood-congruent psychotic features (F31.75: Bipolar disorder, in partial remission, most recent episode depressed) 2. Anxiety (F41.9: Anxiety disorder, unspecified) 3. Chronic kidney disease (CKD), stage III (moderate) (N18.3: Chronic kidney disease, stage 3 (moderate)) stable 4. High risk medication use (Z79.899: Other nursing home (current) drug therapy) General Treatment Plan Pharmacological management: Alternative medication plans were discussed with the patient/guardian. All relevant side effects and potential adverse effects were discussed with the patient/guardian. Standard cautions and potential benefits were discussed. Patient/Guardian consented to the start/continuation of the following: clonazepam 1 mg Tab, 1 mg= 1 tab(s), Oral, Once a day (at bedtime), 2 refills lithium 450 mg oral tablet, extended release, 900 mg= 2 tab(s), Oral, Bedtime, 5 refills ZyPREXA 10 mg Tab, 10 mg= 1 tab(s), Oral, Bedtime, 5 refills Will monitor side/adverse effects and progress and will adjust appropriately Crisis Intervention plan was discussed and agreed upon. Patient/Guardian will call 911 in case of emergency. Emergency contact information was provided to the patient/guardian. Laboratory and other tests: See orders. Psychotherapy; none Follow up as scheduled or return early if needed. School or community referral: none Treatment Goals and Objectives discussed. Other Referrals/Consults/Psycho logical Testing: none Clinical Global Impression Current GAF:65 Prognosis BASELINE STABILITY WITH MEDICATION AND TREATMENT COMPLIANCE Informed Consent Informed Consent: Standard Inform Consent (IC), Non-FDA Guidelines Off-Use IC Informed Consent Obtained: Yes, we discussed the diagnosis/diagnoses, the treatment options, treatment/treatments recommended vs. no treatment. We discussed risks and benefits of treatment options, treatment recommendations and vs. no treatment. Follow-up With When Contact Information Juan SUMMERS MD In 3 months [email or web address] [place] [address]- Additional Instructions: Other Information OARRS Report Reviewed Problem List/Past Medical History Ongoing Anxiety Bipolar I disorder, current or most recent episode depressed, in partial remission with mood-congruent psychotic features Chronic kidney disease (CKD), stage III (moderate) Downbeat nystagmus High risk medication use Historical No qualifying data Procedure/Surgical History History of ectopic , Knee arthroplasty, Rotator cuff arthropathy of right shoulder, TMJ syndrome, Tonsillectomy, [place] tooth. Medications clonazepam 1 mg Tab, 1 mg= 1 tab(s), Oral, Once a day (at bedtime), 2 refills lithium 450 mg oral tablet, extended release, 900 mg= 2 tab(s), Oral, Bedtime, 5 refills ZyPREXA 10 mg Tab, 10 mg= 1 tab(s), Oral, Bedtime, 5 refills Allergies No Known Medication Allergies Social History Alcohol - Denies Alcohol Use, 10/13/2018 Employment/School Unemployed, 03/05/2019 Home/Environment Lives with Spouse. Living situation: Home/Independent., 03/05/2019 Substance Abuse - Denies Substance Abuse, 10/13/2018 Tobacco - Denies Tobacco Use, 10/13/2018 Never (less than 100 in lifetime) Tobacco Use:. Never Smokeless Tobacco Use:. Household tobacco concerns: No., 02/06/2020 Never (less than 100 in lifetime) Tobacco Use:. Never Smokeless Tobacco Use:. Household tobacco concerns: No., 11/16/2019 Family History Alcoholism: Sister. Bipolar: Mother, Father and Sister. Bulimia: Sister. Depression: Mother and Sister. Immunizations Vaccine Date Status Comments influenza virus vaccine, inactivated - Not Given Patient Refuses Normal [facility] Comment on above: Result Comment: Elec tronically Signed By: MELINA DIAZ, Juan\.br\Date and Time Signed: 04/22/20 15:26 EST Patient Educationon 04-22-20 Patient Education Ophthalmology Basics of Medication Management UNDERSTAND YOUR MEDICATIONS ? Read all of the labels and inserts that come with your medications. Review the information on this form often. ? Know what potential side effects to look for (for each medication). ? Know what each of your medications look like (by color, shape, size, stamp). If you are getting confused and having a hard time telling them apart, talk with your caregiver or pharmacist. They may be able to change the medication or help you to identify them more easily. ? Check with your pharmacist if you notice a difference in the size or color of your medication. ? Get all of your medications at one pharmacy. The pharmacist will have all of your information and understand possible drug interactions. ? Ask your caregiver questions about your prescriptions and any aern-rbm-xytyxpj medications, vitamins, herbal or dietary supplements that you take. TAKE YOUR MEDICATION SAFELY ? Take medications only as prescribed. ? Talk with your caregiver or pharmacist if some of your pills look the same and it is difficult to tell them apart. They can help you to recognize different medications. ? Never double up on your medication. ? Never take anyone else's medication or share your medications. ? Do not stop taking your medication(s) unless you have discussed it with your caregiver. ? Do not split, mash, or chew medications unless your caregiver tells you to do so. Tell your caregiver if you have trouble swallowing your medication(s). ? For liquid medications, make sure you use the dosing container provided to you. ? You may need to avoid alcohol or certain foods or liquids with one or more of your medications. Make sure you remember how to take each medication with some of the tools below. ORGANIZE YOUR MEDICATIONS ? Use a tool, such as a weekly pill box (available at your local pharmacy), written chart from your caregiver, notebook, binder, or your own calendar to organize your daily medications. Please note: if you are having trouble telling your different medications apart, keep them in the original bottles. ? Set cues or reminders for taking your medications. Use watch alarms, mobile device/phone calendar alarms, or sticky notes. ? More advanced medication management systems are also available. These offer weekly or monthly options complete with storage, alarms, and visual and audio prompts. ? Your system should help you to keep track of the: ? Name of medication and dose. ? Day. ? Time. ? Pill to take (by color, shape, size, or name/imprint). ? How to take it (with or without certain foods, on an empty stomach, with fluids etc.). ? Review your medication schedule with a family member or friend to help you. Other household members should understand your medications. ? If you are taking medications on an as needed basis such as those for nausea or pain, write down the name, dose, and time you took the medication so that you remember what you have taken. PLAN AHEAD FOR REFILLS AND TRAVEL ? Take your pill box, medications, and calendar system with you when you travel. ? Plan ahead for refills as to not run out of your medication(s). ? Always carry an updated list of your medications with you. If there is an emergency, a respondent can quickly see what medications you are taking. STORE AND DISCARD YOUR MEDICATIONS SAFELY ? Store medications in a cool, dry area away from light. (The bathroom is not a good place for storage because of heat and humidity.) ? Store your medications away from chemicals, pet medications, or other family member's medications. ? Keep medications out of children's reach, away from counters and bedside tables. Store them up high in cabinets or shelves. ? Check expiration dates regularly. ? Learn about the best way to dispose of each medication you take. Find out if your local government recycling program has a Medicine Take Back program for safe disposal. If not, some medications may be mixed with inedible substances and thrown away in the trash. Certain medications are to be flushed down the toilet. REMEMBER: ? Tell your caregiver if you experience side effects, new symptoms, or have other concerns. There may be dosing changes or alternative medications that would be better for you. ? Review your medications regularly with your caregiver. Check to see if you need to continue to take each medication, and discuss how well they are working. Medicines, diet, medical conditions, weight changes, and other habits can all affect how medicines work. PEDIATRIC CONSIDERATIONS If you are taking care of an infant or child who needs multiple medications, follow the tips above to organize a medication schedule and safely give and store medications. ?? ? Use positive reinforcement (singing, cuddling, reward) for your child to help him or her take necessary medications. ? Use only syringes, droppers, dosing spoons, or dosing cups provided by your caregiver or pharmacist. ? Always wash your hands before giving medications. ? Get to know your child's school medication policies. Meet with the school nurse to review the medication schedule in detail. Never send the medication to school with your child. ? Check with your child's caregiver if he or she has trouble taking medication, forgets a dose, or spits it up. ? Make sure your child knows how to use an inhaler properly if needed. ? Do not give your child vgyj-fnu-ozqwodl cough and cold medicines if they are under 2 years of age. ? Avoid giving your child or teenager Aspirin or Aspirin-containing products. Document Released: 09/07/2011 Document Revised: 08/14/2012 Document Reviewed: 09/07/2011 ExitCare? Patient Information ?2013 [employer]. [facility] Video Visit - Telehealtho n 02-07-2020 Video Visit - Telehealth Chief Complaint Tele Visit Subjective Interval History/HPI This visit was conducted via two-way, real-time interactive video communications from my office using [employer] due to the restrictions of the COVID-19 pandemic. No physical exam was conducted other than those areas of the body visible to telecommunications with the patient located at [address] [place], [place] [id number], with spouse in attendance. If it is determined that the patient should be evaluated in the clinic, the patient will be directed to the appropriate clinic or venue. The patient or their guardian verbally consented to this visit. Video time was 10 minutes with the patient face to face greater than 50% in addition to counseling and coordination of care. Patient is seen via video conferencing, audiovisual quality was fair, patient was able to engage and answer questions appropriately. She reports so far her mood continues to be fairly steady and she has had no psychosis since the last visit. She denied any breakthrough psychotic symptoms. Denied ongoing delusions or paranoia. She is not reporting any perceptual disturbances. Denied any command hallucinations. For now she reports her mood state has been fairly stable and denied ongoing sadness or depressed moods. Reports fair energy and fair motivation. She has been active and taking care of her daily ADLS and Chores. She has been spending time with the family and is not isolating herself and denied ongoing anhedonia. Normal Appetite reported. She denied feeling hopeless or worthless and denies ongoing morbid thoughts. Denies ongoing suicidal ideation, intent and plan. She is not experiencing manic mood symptoms at present. She denies having pervasive irritable or elated moods. She is not complaining of ongoing FOI or racing thoughts , denies ongoing distractibility. Her speech is normal limits, she is not reporting any increased busyness or increased psychomotor agitation. No ongoing alcohol or drug abuse reported by pt. Pt denied ongoing excessive anxiety or worries and reports Klonopin has helped her significantly Spouse reports patient has maintained fair amount of stability over the last several months now. Interpersonal issues were discussed: Support provided Insight Oriented/ behavior modifying/ Supportive Therapy: XXX Mood Assessment: Stable mood. No pervasive sadness or irritability reported. Medication Assessment: Pt reports good compliance. Will continue current plan. ISP - Goals and Objectives of Treatment: Maintain mood stability Maintain good anxiety control Medication and Treatment Compliance Review of Systems ROS - Provider Constitutional: no fever, no chills, no sweats, no weakness. Skin: no Jaundice, no rash, no lesions, no petechiae. ENMT: no ear pain, no sore throat, no congestion, no hoarseness. Respiratory: no shortness of breath, no cough, no orthopnea, no wheezing. Cardiovascular: no chest pain, no palpitations, no edema. Mental Status Exam Appearance.: Appropriately dressed and groomed, appears stated age Behavior: cooperative Speech: Normal rate and tone and normal prosody Affect: Full, Congruent Mood: good Thought Process/Associations: Logical and goal directed Thought Content.: Non-psychotic Cognition/Attention/Memor y/Concentration: Alert and oriented x4 Insight/Judgement:fair Suicidal: Denies ongoing suicidal ideation, intent and plan. Homicidal: Denied ongoing homicidal ideations, intent or plan. Language: Within normal limits Fund of Knowledge: Adequate Risk Assessment Currently at low risk of self harm. Denied ongoing feelings of hopelessness. Denies ongoing suicidal ideation, intent and plan in session Diagnosis/Assessment/Apryl tment Plan Informed Consent: Standard Inform Consent (IC), Non-FDA Guidelines Off-Use IC Informed Consent Obtained: Yes, we discussed the diagnosis/diagnoses, the treatment options, treatment/treatments recommended vs. no treatment. We discussed risks and benefits of treatment options, treatment recommendations and vs. no treatment. 1. Bipolar I disorder, current or most recent episode depressed, in partial remission with mood-congruent psychotic features (F31.75: Bipolar disorder, in partial remission, most recent episode depressed) 2. Anxiety (F41.9: Anxiety disorder, unspecified) 3. 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 (current) drug therapy) Orders: clonazepam, 1 mg = 1 tab(s), Oral, Once a day (at bedtime), f41.1, # 30 tab(s), Refills(s) 1, Pharmacy: [facility] #[id number], 158, cm, 01/18/20 12:40:00 EDT, Height/Length Dosing, 70.3, kg, 01/18/20 12:40:00 EDT, Weight Dosing lithium, 900 mg = 2 tab(s), Oral, Bedtime, # 60 tab(s), Refills(s) 5, Pharmacy: [facility] #[id number], 158, cm, 01/18/20 12:40:00 EDT, Height/Length Dosing, 70.3, kg, 01/18/20 12:40:00 EDT, Weight Dosing olanzapine, 10 mg = 1 tab(s), Oral, Bedtime, # 30 tab(s), Refills(s) 5, Pharmacy: [facility] #[id number], 158, cm, 01/18/20 12:40:00 EDT, Height/Length Dosing, 70.3, kg, 01/18/20 12:40:00 EDT, Weight Dosing General Treatment Plan Pharmacological management: Alternative medication plans were discussed with the patient/guardian. All relevant side effects and potential adverse effects were discussed with the patient/guardian. Standard cautions and potential benefits were discussed. Patient/Guardian consented to the start/continuation of the following: Continue medications as ordered above Will monitor side/adverse effects and progress and will adjust appropriately Crisis Intervention plan was discussed and agreed upon. Patient/Guardian will call 911 in case of emergency. Emergency contact information was provided to the patient/guardian. Laboratory and other tests: See orders. Psychotherapy; none Follow up as scheduled or return early if needed. School or community referral: none Treatment Goals and Objectives discussed. Other Referrals/Consults/Psycho logical Testing: none Clinical Global Impression Current GAF:70 Prognosis BASELINE STABILITY WITH MEDICATION AND TREATMENT COMPLIANCE Informed Consent Informed Consent: Standard Inform Consent (IC), Non-FDA Guidelines Off-Use IC Informed Consent Obtained: Yes, we discussed the diagnosis/diagnoses, the treatment options, treatment/treatments recommended vs. no treatment. We discussed risks and benefits of treatment options, treatment recommendations and vs. no treatment. Follow-up With When Contact Information MELINA DIAZ, Juan In 6 weeks [address] [employer] [address] [place] [address]- Additional Instructions: Other Information OARRS Report Reviewed AIMS EXAM Muscles of Facial Expression: None Lips and Perioral Area: None Jaw Area Involuntary Movements: None Tongue Involuntary Movements: None Upper Arms, Wrists, Hands, Fingers: None Lower Legs, Knees, Ankles, Toes: None Neck, Shoulder, Hips: None Overall Abnormal Movement Severity: None Problem List/Past Medical History Ongoing Anxiety Bipolar I disorder, current or most recent episode depressed, in partial remission with mood-congruent psychotic features Chronic kidney disease (CKD), stage III (moderate) Downbeat nystagmus High risk medication use Historical No qualifying data Procedure/Surgical History History of ectopic , Knee arthroplasty, Rotator cuff arthropathy of right shoulder, TMJ syndrome, Tonsillectomy, [place] tooth. Medications clonazepam 1 mg Tab, 1 mg= 1 tab(s), Oral, Once a day (at bedtime), 1 refills lithium 450 mg oral tablet, extended release, 900 mg= 2 tab(s), Oral, Bedtime, 5 refills ZyPREXA 10 mg Tab, 10 mg= 1 tab(s), Oral, Bedtime, 5 refills Allergies No Known Medication Allergies Social History Alcohol - Denies Alcohol Use, 10/13/2018 Employment/School Unemployed, 03/05/2019 Home/Environment Lives with Spouse. Living situation: Home/Independent., 03/05/2019 Substance Abuse - Denies Substance Abuse, 10/13/2018 Tobacco - Denies Tobacco Use, 10/13/2018 Never (less than 100 in lifetime) Tobacco Use:. Never Smokeless Tobacco Use:. Household tobacco concerns: No., 02/06/2020 Never (less than 100 in lifetime) Tobacco Use:. Never Smokeless Tobacco Use:. Household tobacco concerns: No., 11/16/2019 Family History Alcoholism: Sister. Bipolar: Mother, Father and Sister. Bulimia: Sister. Depression: Mother and Sister. Immunizations Vaccine Date Status Comments influenza virus vaccine, inactivated - Not Given Patient Refuses Normal [facility] Comment on above: Result Comment: Elec tronically Signed By: MELINA DIAZ, Juan\.br\Date and Time Signed: 02/07/20 09:47 EDT Patient Educationon 02-06-20 Patient Education Ophthalmology Basics of Medication Management UNDERSTAND YOUR MEDICATIONS ? Read all of the labels and inserts that come with your medications. Review the information on this form often. ? Know what potential side effects to look for (for each medication). ? Know what each of your medications look like (by color, shape, size, stamp). If you are getting confused and having a hard time telling them apart, talk with your caregiver or pharmacist. They may be able to change the medication or help you to identify them more easily. ? Check with your pharmacist if you notice a difference in the size or color of your medication. ? Get all of your medications at one pharmacy. The pharmacist will have all of your information and understand possible drug interactions. ? Ask your caregiver questions about your prescriptions and any veoz-bju-ihvnlir medications, vitamins, herbal or dietary supplements that you take. TAKE YOUR MEDICATION SAFELY ? Take medications only as prescribed. ? Talk with your caregiver or pharmacist if some of your pills look the same and it is difficult to tell them apart. They can help you to recognize different medications. ? Never double up on your medication. ? Never take anyone else's medication or share your medications. ? Do not stop taking your medication(s) unless you have discussed it with your caregiver. ? Do not split, mash, or chew medications unless your caregiver tells you to do so. Tell your caregiver if you have trouble swallowing your medication(s). ? For liquid medications, make sure you use the dosing container provided to you. ? You may need to avoid alcohol or certain foods or liquids with one or more of your medications. Make sure you remember how to take each medication with some of the tools below. ORGANIZE YOUR MEDICATIONS ? Use a tool, such as a weekly pill box (available at your local pharmacy), written chart from your caregiver, notebook, binder, or your own calendar to organize your daily medications. Please note: if you are having trouble telling your different medications apart, keep them in the original bottles. ? Set cues or reminders for taking your medications. Use watch alarms, mobile device/phone calendar alarms, or sticky notes. ? More advanced medication management systems are also available. These offer weekly or monthly options complete with storage, alarms, and visual and audio prompts. ? Your system should help you to keep track of the: ? Name of medication and dose. ? Day. ? Time. ? Pill to take (by color, shape, size, or name/imprint). ? How to take it (with or without certain foods, on an empty stomach, with fluids etc.). ? Review your medication schedule with a family member or friend to help you. Other household members should understand your medications. ? If you are taking medications on an as needed basis such as those for nausea or pain, write down the name, dose, and time you took the medication so that you remember what you have taken. PLAN AHEAD FOR REFILLS AND TRAVEL ? Take your pill box, medications, and calendar system with you when you travel. ? Plan ahead for refills as to not run out of your medication(s). ? Always carry an updated list of your medications with you. If there is an emergency, a respondent can quickly see what medications you are taking. STORE AND DISCARD YOUR MEDICATIONS SAFELY ? Store medications in a cool, dry area away from light. (The bathroom is not a good place for storage because of heat and humidity.) ? Store your medications away from chemicals, pet medications, or other family member's medications. ? Keep medications out of children's reach, away from counters and bedside tables. Store them up high in cabinets or shelves. ? Check expiration dates regularly. ? Learn about the best way to dispose of each medication you take. Find out if your local government recycling program has a Medicine Take Back program for safe disposal. If not, some medications may be mixed with inedible substances and thrown away in the trash. Certain medications are to be flushed down the toilet. REMEMBER: ? Tell your caregiver if you experience side effects, new symptoms, or have other concerns. There may be dosing changes or alternative medications that would be better for you. ? Review your medications regularly with your caregiver. Check to see if you need to continue to take each medication, and discuss how well they are working. Medicines, diet, medical conditions, weight changes, and other habits can all affect how medicines work. PEDIATRIC CONSIDERATIONS If you are taking care of an infant or child who needs multiple medications, follow the tips above to organize a medication schedule and safely give and store medications. ?? ? Use positive reinforcement (singing, cuddling, reward) for your child to help him or her take necessary medications. ? Use only syringes, droppers, dosing spoons, or dosing cups provided by your caregiver or pharmacist. ? Always wash your hands before giving medications. ? Get to know your child's school medication policies. Meet with the school nurse to review the medication schedule in detail. Never send the medication to school with your child. ? Check with your child's caregiver if he or she has trouble taking medication, forgets a dose, or spits it up. ? Make sure your child knows how to use an inhaler properly if needed. ? Do not give your child udiz-jiz-acbnkwl cough and cold medicines if they are under 2 years of age. ? Avoid giving your child or teenager Aspirin or Aspirin-containing products. Document Released: 09/07/2011 Document Revised: 08/14/2012 Document Reviewed: 09/07/2011 ExitCare? Patient Information ?2013 [employer]. Normal [facility] CT Abdomen/Pelvis w/ Contras ton 08-18-2019 CT Abdomen/Pelvis w/ Contrast Exam Date/Time: 08/18/2019 16:57 EDT Reason for Exam: Right sided abd pain, vomiting & diarrhea Report IMPRESSION: LARGE LOBULATED SOFT TISSUE MASS RIGHT LOWER QUADRANT/UPPER RIGHT PELVIS WITH ASSOCIATED FREE FLUID. THE FINDINGS ARE CONSIDERED HIGHLY SUSPICIOUS FOR NEOPLASTIC MASS. A NORMAL RIGHT OVARY IS NOT IDENTIFIED, A RIGHT OVARIAN NEOPLASTIC MASS IS OF CONCERN. CLINICAL HISTORY: Right sided abd pain, vomiting & diarrhea. COMMENT: Images were obtained following the administration of Intravenous contrast. The liver, spleen, pancreas, gallbladder, and adrenal glands appear normal. The kidneys are not enlarged. There are multiple small cysts scattered throughout cortex of each kidney. The kidneys are otherwise unremarkable. There is bilateral renal excretion of contrast. The renal collecting systems are not dilated. No retroperitoneal lymphadenopathy is evident. The abdominal aorta is normal in diameter. No aneurysm is noted. Evaluation of bowel is limited. The bowel loops are not dilated, and there is no evidence of bowel obstruction. The appendix is normal. Fecal material in the colon limits evaluation. There is no evidence of diverticulitis. No abdominal inflammatory complex nor free air is noted. There is a right lower quadrant/right upper pelvis soft tissue mass. The mass has lobulated margins and measures approximately 10 x 7 x 13 cm. There is some heterogeneity in the density of the mass. The mass abuts the cecum and small bowel loops in the right lower quadrant and extends to the right adnexal region in the pelvis. A normal right ovary is not identified. There is free fluid in the right lower quadrant peripheral to the mass. There is also free fluid in the pelvis and at the left paracolic gutter. The uterus is anteverted and projects to the right of midline. The uterus appears within normal limits in size. Inferiorly the mass results in extrinsic pressure and indentation of the right lateral margin of the urinary bladder, with the urinary bladder otherwise unremarkable. No pelvic lymphadenopathy is evident. There are relatively mild multilevel hypertrophic degenerative changes of the lumbar spine and lower thoracic spine. All CT scans at this facility use dose modulation, iterative reconstruction, and/or weight based dosing when appropriate to reduce radiation dose to as low as reasonably achievable. FINAL REPORT Dictated: 08/18/2019 5:40 pm Channing Centeno M.D. Signed (Electronic Signature): 08/18/2019 5:40 pm Signed by: Channing Centeno M.D. Transcribed by: SAW Technologist: ALYSSA Technical Comments GFR (mL/min/1/73m2) . Contrast: Isovue 300 Contrast amount in ml's: 100 Rectal Contrast Given? No Oral contrast amount in ml's: 0 Normal [facility] Alexis 03-26-2019 [facility] NOLA BAUTISTA ([id number]) 1960 F Date Time Provider Department 03/26/19 FREDY DE PAZ During your visit today, we recorded the following information about you: Fredy De Paz DO 03/26/2019 9:24 AM Signed Her MRI was normal so I've ordered lab tests that need to be done Emma Marina 03/26/2019 12:27 PM Signed Contacted the patient and relayed the below message. Patient understands and has no other questions or concerns at this time. Elsy Walsh Coord 03/26/2019 3:00 PM Signed Patient identified by name and date. Patient will be going to [facility] for her lab work. The Lab's fax number is [phone], and she would like her lab order faxed to the lab. She will be going there Tuesday, or most likely Tuesday. TERRI Thapa 03/30/2019 3:19 PM Signed Faxed the lab reqs. to the listed laboratory. Contacted the patient and left a message to contact the office. Fredy De Paz You; Elsy Walsh Coord 4 days ago I can only order tests in the [facility] system so we would need to send her PCP a list of tests to do. Elizabeth Huang RN, RN 03/30/2019 4:46 PM Signed Patient's , Marv, notified that laboratory requisitions were sent to [facility] as requested. Emma Marina 04/03/2019 11:56 AM Signed Received lab results for the following patient. Faxed the results to the [place] office for Dr. De Paz to review. Allergies As of Date: 03/26/2019 Noted Allergy Reaction CHLORPROMAZINE 12/19/2014 14 - Other: See Comments Comments: Caused lock jaw in combination with Stelazine Date Reviewed: 03/23/2019 Reviewed by: Baldomero Morgan) CHRISTIAON Norton - Fully Assessed Reason for Visit: Orders [681] Reason For Visit History Recorded Prescriptions as of 03/26/2019 Sig: CLONAZEPAM 0.5 MG TABLET Take 0.5 mg by mouth once quirino* LITHIUM CARBONATE ER 450 MG T* Take 450 mg by mouth twice da* OLANZAPINE 10 MG TABLET Take 10 mg by mouth once elida* Problem List As Of Date: 03/26/2019 (None) Encounter Status:Closed by FREDY DE PAZ DO on 03/26/19 Normal [facility] PROGRESSon 03-26-2019 PROGRESS HNO ID: [id number] Author: Fredy Britton Wilbertfanta Service: ? Author Type: Physician Type: Progress Notes Filed: 03/26/2019 9:23 AM Note Text: IMPRESSION: NORMAL EXAMINATION. Beef Grader: FRANK ? Transcribe Date/Time: Mar 23 2019 ?3:38P Dictated by : RASHIDA VERDUGO MD Normal [facility] MRI BRAIN WO/W IVCONon 03-23 MRI BRAIN WO/W IVCON * * *Final Report* * * DATE OF EXAM: Mar 23 2019 3:38PM [facility] 0295 - MRI BRAIN WO/W IVCON / PROCEDURE REASON: multiple diagnoses * * * * Physician Interpretation * * * * MRI of the brain without and with contrast. HISTORY: Down the thigh segments. TECHNIQUE: Visual pathway protocol without and with contrast. MR Contrast: Dotarem Contrast Dose: 12 cc Route of Administration: IV COMPARISON: None RESULT: Diffusion weighted images are normal. The ventricles and basal cisterns are normal in size and configuration. There are no extra-axial fluid collections. There is no intracranial mass or mass effect. Hypothalamic and pineal regions are within normal limits. Craniocervical junction is normal. There is no evidence of a pathological marrow replacement process. High-resolution orbital images demonstrate normal appearance of the globes, extraocular muscles and orbital fat pads, and optic nerves. IMPRESSION: NORMAL EXAMINATION. Beef Grader: FRANK Transcribe Date/Time: Mar 23 2019 3:38P Dictated by : RASHIDA VERDUGO MD This examination was interpreted and the report reviewed and electronically signed by: RASHIDA VERDUGO MD on Mar 23 2019 3:46PM EST [id number] Normal [facility] PROGRESSon 03-23-2019 PROGRESS HNO ID: [id number] Author: Baldomero BonillaRn) CHRISTIANO Norton Service: ? Author Type: Registered Nurse Type: Progress Notes Filed: 03/23/2019 3:10 PM Note Text: Radiology Service Progress Note DATE OF SERVICE: March 23, 2019 TIME: 3:09 PM PATIENT WEIGHT: naLBS PATIENT IDENTITY VERIFICATION COMPLETED USING TWO (2) STANDARD IDENTIFIERS: Name and Date of confirmed by patient verbally. PATIENT GENDER DATA: Female. status: : No status: NO. ALLERGIES: Reviewed and unchanged CONTRAST ALLERGY: NO. EXAM: MRI - CONTRAST TYPE: GROUP II IV SITE: Ambulatory: A peripheral IV was started in the Right antecubital site with a Angio cath: 22 gauge. and A Saline lock was inserted per protocol IV SITE APPEARANCE: Clean,Dry and Intact SIGNATURE: Baldomero Norton RN PATIENT NAME: Nola Bautista DATE: March 23, 2019 TIME: 3:09 PM Normal [facility] 03-02-2019 CNPN Telephone ([facility]) ----- NOLA BAUTISTA ([id number]) 1960 F Date Time Provider Department 03/02/19 FREDY DE PAZ OPHANTONIO During your visit today, we recorded the following information about you: Fredy De Paz DO 03/02/2019 9:04 AM Signed Her lithium level was normal so I've ordered an MRI that needs to be scheduled Emma Marina 03/02/2019 10:18 AM Signed Contacted the patient and left a message to contact the office. Emma Marina 03/02/2019 2:10 PM Signed Patient's called and I relayed the below message. Connected her to the [place] office to schedule for the MRI. Allergies As of Date: 03/02/2019 Noted Allergy Reaction CHLORPROMAZINE 12/19/2014 14 - Other: See Comments Comments: Caused lock jaw in combination with Stelazine Date Reviewed: 03/01/2019 Reviewed by: Fredy De Paz - Fully Assessed Reason for Visit: Results [95] Prescriptions as of 03/02/2019 Sig: IV CONTRAST (RADIOLOGY PROCED* MRI Brain Inject, intravenous* CLONAZEPAM 0.5 MG TABLET Take 0.5 mg by mouth once quirino* LITHIUM CARBONATE ER 450 MG T* Take 450 mg by mouth twice da* OLANZAPINE 10 MG TABLET Take 10 mg by mouth once elida* Problem List As Of Date: 03/02/2019 (None) Encounter Status:Closed by QUINTON FREDY Britton on 03/02/19 Normal [facility] Lithiumon 03-01-2019 [place] [Moles/Vol] 1.1 mmol/L Normal 0.6-1.2 [facility] Comment on above: Result Comment: Refe rence ranges and high/low indicator flags are provided as general guidelines only. The treating physician must determine appropriate target levels/dosing based on the specific clinical situation. Performed By: #### L I #### [facility] [address] [place], [place] [address] PROGRESSon 03-01-2019 PROGRESS HNO ID: [id number] Author: Fredy De Paz Service: ? Author Type: Physician Type: Progress Notes Filed: 03/05/2019 1:23 PM Note Text: Downbeat nystagmus (primary encounter diagnosis) Hypertropia of right eye Nuclear senile cataract of both eyes She is on 900mg per day of lithium and I suppose this would be the most likely culprit. Will check Li level today. If normal, will need to get an MRI (had one in November of 2017 that was normal). I have confirmed and edited as necessary the relevant ophthalmic history, ROS, and the neuro exam findings as obtained by others. I have seen and examined this patient. I have discussed the case and the management of this patient's care with the Resident/Fellow, if applicable. I also have reviewed and agree with the assessment and plan as stated above and agree with all of its relevant components. Fredy Britton DO [place] March 01, 2019 2:41 PM Her lithium level is normal so will proceed with MRI. If this is negative for a structural cause will need to do paraneoplastic w/u and check for anti-NMDA and anti-KALEN antibodies. paraneoplastic Or autoimmune Encephalitis oanel, TPO Conner, gluten Immunoglobulin A (IgA) anti-tissue transglutaminase (TTG) antibody, Mg, vit E, A, copper, B12 Normal [facility] PROGRESSon 01-16-2019 PROGRESS HNO ID: [id number] Author: Leonel De Jesus Service: ? Author Type: Physician Type: Progress Notes Filed: 01/18/2019 1:00 PM Note Text: 58 year old with hx of nystagmus for the last two years- has previously been seen by neurologist ( not at [facility]) and had 2 MRIs within the last year that were reportedly normal per the family On exam noted to have vertical downbeat nystagmus Hx of bipolar disorder- takes lithium, clonipine and olanzapine Mild myopic astigmatism- gave updated glasses Rx Differential: cererbellar and midbrain disorders, case reports of lithium intoxication with vertical downbeat nystagmus Discussed evaluation by neurologist at [facility]- Follow up in 3-4 month sooner prn I have confirmed and edited as necessary the relevant ophthalmic history, ROS, and the neuro exam findings as obtained by others. I have seen and examined this patient. I have discussed the case and the management of this patient's care with the Resident/Fellow, if applicable. I also have reviewed and agree with the assessment and plan as stated above and agree with all of its relevant components. Leonel De Jesus MD January 18, 2019 1:00 PM Normal [facility] Valproic Acidon 11-20-2017 Valproic Acid 69 ug/mL Normal 50-125 [facility] Comment on above: Performed By: #### C DP, CP ####[facility] [place] [address] #### GLYHGB ####[facility] [address] [place] [address] Date last dose, Normal [facility] Comment on above: Performed By: #### C DP, CP ####[facility] [place] [address] #### GLYHGB ####[facility] [address] [place] [address] Dose amount 1000MG Normal [facility] Comment on above: Performed By: #### C DP, CP ####[address] [address] #### GLYHGB ####[address] [address] Time last dose, 0835 Normal [facility] Comment on above: Result Comment: Perf ormed at [address] [address] Performed By: #### C DP, CP ####[address] [address] #### GLYHGB ####[address] [address] CBC with Diffon 11-15-2017 Abs. Basophil 0.00 k/uL Normal 0.0-0.2 [facility] Comment on above: Result Comment: Perf ormed at [address] [address] Performed By: #### C DP, CP ####[address] [address] Abs.Neutrophil (Seg) 3.40 k/uL Normal 1.3-9.1 [facility] Comment on above: Performed By: #### C DP, CP ####[address] [address] Basophils/100 WBC Auto (Bld) 1 % Normal 0-2 [facility] Comment on above: Performed By: #### C DP, CP ####[address] [address] Eosinophils 0.10 10*3/uL Normal 0.0-0.4 [facility] Comment on above: Performed By: #### C DP, CP ####[address] [address] Eosinophils/100 leukocytes 1 % Normal 0-4 [facility] Comment on above: Performed By: #### C DP, CP ####[facility] [place] [address] Erythrocyte distribution width Auto Ratio (RBC) 13.7 % Normal 11.5-14.9 [facility] Comment on above: Performed By: #### C DP, CP ####[facility] [place] [address] Erythrocytes (RBC) 4.24 10*6/uL Normal 4.0-5.2 [facility] Comment on above: Performed By: #### C DP, CP ####[facility] [place] [address] Hematocrit (HCT) 40.7 % Normal 36-46 [facility] Comment on above: Performed By: #### C DP, CP ####[facility] [place] [address] Hemoglobin mass conc (Bld) 13.8 g/dL Normal 12.0-16.0 [facility] Comment on above: Performed By: #### C DP, CP ####[facility] [facility] [place] [address] Lymphocytes 1.70 10*3/uL Normal 1.0-4.8 [facility] Comment on above: Performed By: #### C DP, CP ####[facility] [place] [address] Lymphocytes/100 leukocytes 28 % Normal 24-44 [facility] Comment on above: Performed By: #### C DP, CP ####[facility] [place] [address] MCH 32.6 pg Normal 26-34 [facility] Comment on above: Performed By: #### C DP, CP ####[facility] [facility] [place] [address] MCHC mass conc (RBC) 34.0 g/dL Normal 31-37 [facility] Comment on above: Performed By: #### C DP, CP ####[facility] [facility] [place] [address] MCV 95.9 fL Normal 80-100 [facility] Comment on above: Performed By: #### C DP, CP ####[facility] [place] [address].[place] [address] Monocytes 0.70 10*3/uL Normal 0.1-1.3 [facility] Comment on above: Performed By: #### C DP, CP ####[facility] [place] [address].[place] [address] Monocytes/100 leukocytes 13 % High 1-7 [facility] Comment on above: Performed By: #### C DP, CP ####[facility] [place] [address] Neutrophil (Seg) 57 % Normal 36-66 [facility] Comment on above: Performed By: #### C DP, CP ####[facility] [place] [address].[place] [address] Platelet mean volume (PMV) 8.1 fL Normal 6.0-12.0 [facility] Comment on above: Performed By: #### C DP, CP ####[facility] [place] [address].[place] [address] Platelets 250 10*3/uL Normal 150-450 [facility] Comment on above: Performed By: #### C DP, CP ####[facility] [place] [address] WBC (Leukocytes) 6.0 10*3/uL Normal 3.5-11.0 [facility] Comment on above: Performed By: #### C DP, CP ####[address] [address] Auto Diff Performed NOT REPORTED Normal [facility] Comment on above: Performed By: #### C DP, CP ####[address] [address] Erythrocyte morphology NOT REPORTED Normal [facility] Comment on above: Performed By: #### C DP, CP ####[address] [address] Erythrocytes (RBC) NOT REPORTED Normal [facility] Comment on above: Performed By: #### C DP, CP ####[address] [address] Granulocytes/100 WBC (Bld) NOT REPORTED Normal 0.00-0.30 [facility] Comment on above: Performed By: #### C DP, CP ####[address] [address] Immature granulocytes #/vol (Bld) NOT REPORTED Normal 0 [facility] Comment on above: Performed By: #### C DP, CP ####[address] [address] Platelets NOT REPORTED Normal [facility] Comment on above: Performed By: #### C DP, CP ####[address] [address] WBC Morphology NOT REPORTED Normal [facility] Comment on above: Performed By: #### C DP, CP ####[address] [address] Comp Metabolic Profon 2017 (cont.) Normal [facility] Comment on above: Result Comment: Aver age GFR for 50-59 years old: 93 mL/min/1.73sq mChronic Kidney Disease: <60 mL/min/1.73sq mKidney failure: <15 mL/min/1.73sq meGFR calculated using average adult body mass. Additional eGFR calculator available at:http://www.[employer]multiple_crcl_2011.htmPerformed at [facility] [address] [place] [address] Performed By: #### C DP, CP ####[address] [address] #### GLYHGB ####[address] [address] Alanine aminotransferase (ALT) 16 U/L Normal 5-33 [facility] Comment on above: Result Comment: SPEC IMEN MODERATELY HEMOLYZED, RESULTS MAY BE ADVERSELY AFFECTED Performed By: #### C DP, CP ####[address] [place] [address] #### GLYHGB ####[address] [place] [address] Albumin 4.2 g/dL Normal 3.5-5.2 [facility] Comment on above: Performed By: #### C DP, CP ####[address] [place] [address] #### GLYHGB ####[facility] [address] [place] [address] Alkaline Phos 18 U/L Low 35-104 [facility] Comment on above: Performed By: #### C DP, CP ####[address] [place] [address] #### GLYHGB ####[address] [address] Anion gap 13 mmol/L Normal 9-17 [facility] Comment on above: Performed By: #### C DP, CP ####[facility] [place] [address] #### GLYHGB ####[address] [address] Aspartate aminotransferase (AST) 25 U/L Normal <32 [facility] Comment on above: Result Comment: SPEC IMEN MODERATELY HEMOLYZED, RESULTS MAY BE ADVERSELY AFFECTED Performed By: #### C DP, CP ####[address] [address] #### GLYHGB ####[address] [address] Bilirubin Ql (U) 0.28 mg/dL Low 0.3-1.2 [facility] Comment on above: Performed By: #### C DP, CP ####[address] [place] [address] #### GLYHGB ####[address] [address] Calcium 10.1 mg/dL Normal 8.6-10.4 [facility] Comment on above: Performed By: #### C DP, CP ####[address] [place] [address] #### GLYHGB ####[address] [address] Chloride 99 mmol/L Normal 98-107 [facility] Comment on above: Performed By: #### C DP, CP ####[address] [place] [address] #### GLYHGB ####[facility] [place] [address] CO2 28 mmol/L Normal 20-31 [facility] Comment on above: Performed By: #### C DP, CP ####[facility] [place] [address] #### GLYHGB ####[facility] [place] [address] Creatinine 1.04 mg/dL High 0.50-0.90 [facility] Comment on above: Performed By: #### C DP, CP ####[facility] [place] [address] #### GLYHGB ####[address] [place] [address] eGFR (non-black) mL/min/{1.73_m2} Normal >60 [facility] Comment on above: Performed By: #### C DP, CP ####[facility] [place] [address] #### GLYHGB ####[address] [place] [address] eGFR (non-black) 54 mL/min/{1.73_m2} Low >60 [facility] Comment on above: Performed By: #### C DP, CP ####[facility] [place] [address] #### GLYHGB ####[facility] [place] [address] Glucose mass conc 110 mg/dL High 70-99 [facility] Comment on above: Performed By: #### C DP, CP ####[facility] [place] [address] #### GLYHGB ####[facility] [place] [address] Potassium molar conc 4.2 mmol/L Normal 3.7-5.3 [facility] Comment on above: Result Comment: SPEC IMEN MODERATELY HEMOLYZED, RESULTS MAY BE ADVERSELY AFFECTED Performed By: #### C DP, CP ####[facility] [place] [address] #### GLYHGB ####[address] [place] [address] Protein 6.8 g/dL Normal 6.4-8.3 [facility] Comment on above: Performed By: #### C DP, CP ####[address] [address] #### GLYHGB ####[address] [address] Sodium 140 mmol/L Normal 135-144 [facility] Comment on above: Performed By: #### C DP, CP ####[address] [address] #### GLYHGB ####[address] [place] [address] Urea nitrogen 23 mg/dL High 6-20 [facility] Comment on above: Performed By: #### C DP, CP ####[facility] [place] [address] #### GLYHGB ####[address] [address] Albumin/Globulin Ratio NOT REPORTED Normal 1.0-2.5 [facility] Comment on above: Performed By: #### C DP, CP ####[address] [place] [address] #### GLYHGB ####[facility] [address] [place] [address] BUN/CRE Ratio NOT REPORTED Normal 9-20 [facility] Comment on above: Performed By: #### C DP, CP ####[facility] [place] [address] #### GLYHGB ####[facility] [place] [address] Staging: NOT REPORTED Normal [facility] Comment on above: Performed By: #### C DP, CP ####[facility] [place] [address] #### GLYHGB ####[facility] [place] [address] MRI BRAIN WO CONTRASTon 11-04 MRI BRAIN WO CONTRAST EXAMINATION:MRI OF THE BRAIN WITHOUT CONTRAST 11/15/2017 2:00 pmTECHNIQUE:Multiplanar multisequence MRI of the brain was performed without theadministration of intravenous contrast.COMPARISON:None. HISTORY:ORDERING SYSTEM PROVIDED HISTORY: CONFUSION/DELIRIUM, ALTERED LOC, UNEXPLAINEDTECHNOLOGIST PROVIDED HISTORY:Ordering Physician Provided Reason for Exam: CONFUSION/DELIRIUM, ALTERED LOC,UNEXPLAINED NEW ONSET VISUAL HALLUCINATIONS IN ADDITION TO PSYCHOSIS NOTRESOLVING WITH ANTIPSYCHOTICSAcuity: UnknownType of Exam: UnknownAdditional signs and symptoms: PT HEARING VOICES; PT POOR HISTORIANFINDINGS:INTRACR ANIAL STRUCTURES/VENTRICLES: There is no acute infarct. No mass effector midline shift. No evidence of an acute intracranial hemorrhage. Theventricles and sulci are normal in size and configuration. Thesellar/suprasellar regions appear unremarkable. The normal signal voidswithin the major intracranial vessels appear maintained.ORBITS: The visualized portion of the orbits demonstrate no acute abnormality.SINUSES: The visualized paranasal sinuses and mastoid air cells are wellaerated.BONES/SOFT TISSUES: The bone marrow signal intensity appears normal. The softtissues demonstrate no acute abnormality.IMPRESSION: No acute abnormality.Interpreted by:EILEEN Silvaigned by:Dilan Pathak MD11/15/17inal result Normal [facility] Ammoniaon 11-09-2017 Ammonia 35 umol/L Normal 11-51 [facility] Comment on above: Result Comment: Perf ormed at [facility] [address] [place] [id number] Performed By: #### A MON ####[address] [address] B12/Folate Panelon 8 Folic Acid >20.0 Normal >4.8 [facility] Health Comment on above: Result Comment: Perf ormed at [address] [address] Performed By: #### C DP, CMPX ####[address] [address] #### TREP, B12FOL ####[address] [place] [address] Cobalamins (Vitamin B12) 1550 pg/mL High 232-1245 [facility] Comment on above: Performed By: #### C DP, CMPX ####[address] [address] #### TREP, B12FOL ####[address] [address] CBC with Diffon 11-09-2017 Abs. Basophil 0.00 k/uL Normal 0.0-0.2 [facility] Comment on above: Result Comment: Perf ormed at [address] [address] Performed By: #### C DP, CMPX ####[address] [address] #### TREP, B12FOL ####[address] [address] Abs.Neutrophil (Seg) 5.90 k/uL Normal 1.3-9.1 [facility] Comment on above: Performed By: #### C DP, CMPX ####[facility] [place] [address] #### TREP, B12FOL ####[address] [address] Basophils/100 WBC Auto (Bld) 1 % Normal 0-2 [facility] Comment on above: Performed By: #### C DP, CMPX ####[address] [address] #### TREP, B12FOL ####[address] [address] Eosinophils 0.00 10*3/uL Normal 0.0-0.4 [facility] Comment on above: Performed By: #### C DP, CMPX ####[address] [address] #### TREP, B12FOL ####[address] [address] Eosinophils/100 leukocytes 0 % Normal 0-4 [facility] Comment on above: Performed By: #### C DP, CMPX ####[facility] [place] [address] #### TREP, B12FOL ####[address] [address] Erythrocyte distribution width Auto Ratio (RBC) 13.8 % Normal 11.5-14.9 [facility] Comment on above: Performed By: #### C DP, CMPX ####[facility] [place] [address] #### TREP, B12FOL ####[address] [address] Erythrocytes (RBC) 4.37 10*6/uL Normal 4.0-5.2 [facility] Comment on above: Performed By: #### C DP, CMPX ####[facility] [place] [address] #### TREP, B12FOL ####[address] [address] Hematocrit (HCT) 41.0 % Normal 36-46 [facility] Comment on above: Performed By: #### C DP, CMPX ####[address] [address] #### TREP, B12FOL ####[address] [address] Hemoglobin mass conc (Bld) 13.9 g/dL Normal 12.0-16.0 [facility] Comment on above: Performed By: #### C DP, CMPX ####[facility] [place] [address] #### TREP, B12FOL ####[address] [address] Lymphocytes 1.90 10*3/uL Normal 1.0-4.8 [facility] Comment on above: Performed By: #### C DP, CMPX ####[facility] [place] [address] #### TREP, B12FOL ####[address] [address] Lymphocytes/100 leukocytes 21 % Low 24-44 [facility] Comment on above: Performed By: #### C DP, CMPX ####[facility] [place] [address] #### TREP, B12FOL ####[address] [address] MCH 31.9 pg Normal 26-34 [facility] Comment on above: Performed By: #### C DP, CMPX ####[facility] [place] [address] #### TREP, B12FOL ####[address] [address] MCHC mass conc (RBC) 34.0 g/dL Normal 31-37 [facility] Comment on above: Performed By: #### C DP, CMPX ####[facility] [place] [address] #### TREP, B12FOL ####[address] [address] MCV 93.8 fL Normal 80-100 [facility] Comment on above: Performed By: #### C DP, CMPX ####[facility] [place] [address] #### TREP, B12FOL ####[address] [place] [address] Monocytes 1.00 10*3/uL Normal 0.1-1.3 [facility] Comment on above: Performed By: #### C DP, CMPX ####[facility] [place] [address] #### TREP, B12FOL ####[address] [address] Monocytes/100 leukocytes 12 % High 1-7 [facility] Comment on above: Performed By: #### C DP, CMPX ####[facility] [place] [address] #### TREP, B12FOL ####[address] [address] Neutrophil (Seg) 66 % Normal 36-66 [facility] Comment on above: Performed By: #### C DP, CMPX ####[address] [address] #### TREP, B12FOL ####[address] [address] Platelet mean volume (PMV) 8.4 fL Normal 6.0-12.0 [facility] Comment on above: Performed By: #### C DP, CMPX ####[address] [address] #### TREP, B12FOL ####[address] [address] Platelets 249 10*3/uL Normal 150-450 [facility] Comment on above: Performed By: #### C DP, CMPX ####[facility] [place] [address] #### TREP, B12FOL ####[address] [address] WBC (Leukocytes) 8.9 10*3/uL Normal 3.5-11.0 [facility] Comment on above: Performed By: #### C DP, CMPX ####[address] [address] #### TREP, B12FOL ####[address] [address] Auto Diff Performed NOT REPORTED Normal [facility] Comment on above: Performed By: #### C DP, CMPX ####[facility] [place] [address], [place] [address] #### TREP, B12FOL ####[address] [address] Erythrocyte morphology NOT REPORTED Normal [facility] Comment on above: Performed By: #### C DP, CMPX ####[address] [place] [address] #### TREP, B12FOL ####[address] [address] Erythrocytes (RBC) NOT REPORTED Normal [facility] Comment on above: Performed By: #### C DP, CMPX ####[address] [place] [address] #### TREP, B12FOL ####[address] [address] Granulocytes/100 WBC (Bld) NOT REPORTED Normal 0.00-0.30 [facility] Comment on above: Performed By: #### C DP, CMPX ####[address] [place] [address] #### TREP, B12FOL ####[address] [address] Immature granulocytes #/vol (Bld) NOT REPORTED Normal 0 [facility] Comment on above: Performed By: #### C DP, CMPX ####[address] [place] [address] #### TREP, B12FOL ####[facility] [address] [place] [address] Platelets NOT REPORTED Normal [facility] Comment on above: Performed By: #### C DP, CMPX ####[address] [place] [address] #### TREP, B12FOL ####[address] [place] [address] WBC Morphology NOT REPORTED Normal [facility] Comment on above: Performed By: #### C DP, CMPX ####[address] [address] #### TREP, B12FOL ####[address] [address] Comp Metabolic Pr/rfx MGon 0 11-09-2017 Aspartate aminotransferase (AST) 37 U/L High <32 [facility] Comment on above: Performed By: #### C DP, CMPX ####[address] [address] #### TREP, B12FOL ####[address] [place] [address] (cont.) Normal [facility] Comment on above: Result Comment: Aver age GFR for 50-59 years old: 93 mL/min/1.73sq mChronic Kidney Disease: <60 mL/min/1.73sq mKidney failure: <15 mL/min/1.73sq meGFR calculated using average adult body mass. Additional eGFR calculator available at:http://www.[employer]multiple_crcl_2012.htmPerformed at [facility] [address] [place] [address] Performed By: #### C DP, CMPX ####[address] [place] [address] #### TREP, B12FOL ####[facility] [place] [address] Alanine aminotransferase (ALT) 20 U/L Normal 5-33 [facility] Comment on above: Performed By: #### C DP, CMPX ####[facility] [facility] [place] [address] #### TREP, B12FOL ####[facility] [place] [address] Albumin 4.2 g/dL Normal 3.5-5.2 [facility] Comment on above: Performed By: #### C DP, CMPX ####[address] [place] [address] #### TREP, B12FOL ####[address] [place] [address] Alkaline Phos 21 U/L Low 35-104 [facility] Comment on above: Performed By: #### C DP, CMPX ####[address] [place] [address] #### TREP, B12FOL ####[facility] [address] [place] [address] Anion gap 12 mmol/L Normal 9-17 [facility] Comment on above: Performed By: #### C DP, CMPX ####[facility] [place] [address] [place] [address] #### TREP, B12FOL ####[facility] [place] [address] Bilirubin Ql (U) 0.28 mg/dL Low 0.3-1.2 [facility] Comment on above: Performed By: #### C DP, CMPX ####[facility] [place] [address] #### TREP, B12FOL ####[address] [place] [address] Calcium 9.7 mg/dL Normal 8.6-10.4 [facility] Comment on above: Performed By: #### C DP, CMPX ####[facility] [place] [address] #### TREP, B12FOL ####[address] [address] Chloride 105 mmol/L Normal 98-107 [facility] Comment on above: Performed By: #### C DP, CMPX ####[facility] [place] [address] #### TREP, B12FOL ####[address] [address] CO2 26 mmol/L Normal 20-31 [facility] Comment on above: Performed By: #### C DP, CMPX ####[address] [address] #### TREP, B12FOL ####[address] [address] Creatinine 1.16 mg/dL High 0.50-0.90 [facility] Comment on above: Performed By: #### C DP, CMPX ####[facility] [place] [address] #### TREP, B12FOL ####[address] [place] [address] eGFR (non-black) 48 mL/min/{1.73_m2} Low >60 [facility] Comment on above: Performed By: #### C DP, CMPX ####[facility] [place] [address] #### TREP, B12FOL ####[facility] [place] [address] eGFR (non-black) 58 mL/min/{1.73_m2} Low >60 [facility] Comment on above: Performed By: #### C DP, CMPX ####[facility] [place] [address] #### TREP, B12FOL ####[facility] [place] [address] Glucose mass conc 131 mg/dL High 70-99 [facility] Comment on above: Performed By: #### C DP, CMPX ####[facility] [facility] [place] [address] #### TREP, B12FOL ####[facility] [address] [place] [address] Potassium molar conc 3.8 mmol/L Normal 3.7-5.3 [facility] Comment on above: Performed By: #### C DP, CMPX ####[facility] [facility] [place] [address] #### TREP, B12FOL ####[facility] [address] [place] [address] Protein 6.9 g/dL Normal 6.4-8.3 [facility] Comment on above: Performed By: #### C DP, CMPX ####[facility] [place] [address] #### TREP, B12FOL ####[facility] [place] [address] Sodium 143 mmol/L Normal 135-144 [facility] Comment on above: Performed By: #### C DP, CMPX ####[facility] [facility] [place] [address] #### TREP, B12FOL ####[facility] [place] [address] Urea nitrogen 21 mg/dL High - [facility] Comment on above: Performed By: #### C DP, CMPX ####[facility] [place] [address] [place] [address] #### TREP, B12FOL ####[facility] [place] [address] Albumin/Globulin Ratio NOT REPORTED Normal 1.0-2.5 [facility] Comment on above: Performed By: #### C DP, CMPX ####[facility] [place] [address] [place] [address] #### TREP, B12FOL ####[facility] [place] [address] BUN/CRE Ratio NOT REPORTED Normal - [facility] Comment on above: Performed By: #### C DP, CMPX ####[facility] [place] [address] [place] [address] #### TREP, B12FOL ####[facility] [place] [address] Staging: NOT REPORTED Normal [facility] Comment on above: Performed By: #### C DP, CMPX ####[facility] [facility] [place] [address] #### TREP, B12FOL ####[address] [address] T.pallidum Ab Screenon 11-09 T.pallidum Ab Screen NONREACTIVE Normal NR [facility] Comment on above: Result Comment: T. p allidum antibodies are not detected.There is no serological evidence of infection with T. pallidum (early primary syphilis cannot be excluded). Retest in 2-4 weeks if syphilis is clinically suspect.Performed at [address] [address] Performed By: #### C DP, CMPX ####[facility] [place] [address] #### TREP, B12FOL ####[address] [address] CBC with Diffon 2017 Abs. Basophil 0.00 k/uL Normal 0.0-0.2 [facility] Comment on above: Result Comment: Perf ormed at [facility] [address] [place] [address] Performed By: #### C DP, CP ####[address] [address] #### GLYHGB ####[address] [address] Abs.Neutrophil (Seg) 4.20 k/uL Normal 1.3-9.1 [facility] Comment on above: Performed By: #### C DP, CP ####[facility] [place] [address] #### GLYHGB ####[address] [address] Basophils/100 WBC Auto (Bld) 1 % Normal 0-2 [facility] Comment on above: Performed By: #### C DP, CP ####[address] [place] [address] #### GLYHGB ####[address] [address] Eosinophils 0.10 10*3/uL Normal 0.0-0.4 [facility] Comment on above: Performed By: #### C DP, CP ####[address] [address] #### GLYHGB ####[address] [address] Eosinophils/100 leukocytes 2 % Normal 0-4 [facility] Comment on above: Performed By: #### C DP, CP ####[address] [address] #### GLYHGB ####[address] [address] Erythrocyte distribution width Auto Ratio (RBC) 13.8 % Normal 11.5-14.9 [facility] Comment on above: Performed By: #### C DP, CP ####[address] [address] #### GLYHGB ####[address] [address] Erythrocytes (RBC) 4.27 10*6/uL Normal 4.0-5.2 [facility] Comment on above: Performed By: #### C DP, CP ####[address] [address] #### GLYHGB ####[address] [address] Hematocrit (HCT) 40.3 % Normal 36-46 [facility] Comment on above: Performed By: #### C DP, CP ####[facility] [place] [address] #### GLYHGB ####[address] [address] Hemoglobin mass conc (Bld) 13.8 g/dL Normal 12.0-16.0 [facility] Comment on above: Performed By: #### C DP, CP ####[facility] [place] [address] #### GLYHGB ####[address] [address] Lymphocytes 2.00 10*3/uL Normal 1.0-4.8 [facility] Comment on above: Performed By: #### C DP, CP ####[address] [address] #### GLYHGB ####[address] [address] Lymphocytes/100 leukocytes 29 % Normal 24-44 [facility] Comment on above: Performed By: #### C DP, CP ####[address] [address] #### GLYHGB ####[address] [address] MCH 32.4 pg Normal 26-34 [facility] Comment on above: Performed By: #### C DP, CP ####[address] [address] #### GLYHGB ####[address] [address] MCHC mass conc (RBC) 34.3 g/dL Normal 31-37 [facility] Comment on above: Performed By: #### C DP, CP ####[facility] [place] [address] #### GLYHGB ####[address] [address] MCV 94.4 fL Normal 80-100 [facility] Comment on above: Performed By: #### C DP, CP ####[facility] [place] [address] #### GLYHGB ####[address] [address] Monocytes 0.80 10*3/uL Normal 0.1-1.3 [facility] Comment on above: Performed By: #### C DP, CP ####[facility] [place] [address] #### GLYHGB ####[address] [address] Monocytes/100 leukocytes 11 % High 1-7 [facility] Comment on above: Performed By: #### C DP, CP ####[address] [address] #### GLYHGB ####[address] [address] Neutrophil (Seg) 57 % Normal 36-66 [facility] Comment on above: Performed By: #### C DP, CP ####[facility] [place] [address] #### GLYHGB ####[address] [address] Platelet mean volume (PMV) 8.6 fL Normal 6.0-12.0 [facility] Comment on above: Performed By: #### C DP, CP ####[facility] [place] [address] #### GLYHGB ####[address] [place] [address] Platelets 234 10*3/uL Normal 150-450 [facility] Comment on above: Performed By: #### C DP, CP ####[facility] [place] [address] #### GLYHGB ####[address] [address] WBC (Leukocytes) 7.1 10*3/uL Normal 3.5-11.0 [facility] Comment on above: Performed By: #### C DP, CP ####[address] [address] #### GLYHGB ####[address] [address] Auto Diff Performed NOT REPORTED Normal [facility] Comment on above: Performed By: #### C DP, CP ####[facility] [place] [address] [place] [address] #### GLYHGB ####[address] [address] Erythrocyte morphology NOT REPORTED Normal [facility] Comment on above: Performed By: #### C DP, CP ####[facility] [place] [address] [place] [address] #### GLYHGB ####[address] [address] Erythrocytes (RBC) NOT REPORTED Normal [facility] Comment on above: Performed By: #### C DP, CP ####[address] [place] [address] #### GLYHGB ####[facility] [place] [address] Granulocytes/100 WBC (Bld) NOT REPORTED Normal 0.00-0.30 [facility] Comment on above: Performed By: #### C DP, CP ####[facility] [place] [address] #### GLYHGB ####[address] [place] [address] Immature granulocytes #/vol (Bld) NOT REPORTED Normal 0 [facility] Comment on above: Performed By: #### C DP, CP ####[address] [address] #### GLYHGB ####[address] [address] Platelets NOT REPORTED Normal [facility] Comment on above: Performed By: #### C DP, CP ####[address] [address] #### GLYHGB ####[address] [place] [address] WBC Morphology NOT REPORTED Normal [facility] Comment on above: Performed By: #### C DP, CP ####[address] [address] #### GLYHGB ####[address] [place] [address] Comp Metabolic Profon 2017 (cont.) Normal [facility] Comment on above: Result Comment: Aver age GFR for 50-59 years old: 93 mL/min/1.73sq mChronic Kidney Disease: <60 mL/min/1.73sq mKidney failure: <15 mL/min/1.73sq meGFR calculated using average adult body mass. Additional eGFR calculator available at:http://www.[employer]multiple_crcl_2011.htmPerformed at [facility] [address] [place] [address] Performed By: #### C DP, CP ####[facility] [place] [address] #### GLYHGB ####[facility] [place] [address] Alanine aminotransferase (ALT) 13 U/L Normal 5-33 [facility] Comment on above: Performed By: #### C DP, CP ####[address] [address] #### GLYHGB ####[facility] [address] [place] [address] Albumin 4.2 g/dL Normal 3.5-5.2 [facility] Comment on above: Performed By: #### C DP, CP ####[facility] [place] [address] [place] [address] #### GLYHGB ####[facility] [place] [address] Alkaline Phos 23 U/L Low 35-104 [facility] Comment on above: Performed By: #### C DP, CP ####[facility] [place] [address] #### GLYHGB ####[facility] [place] [address] Anion gap 12 mmol/L Normal 9-17 [facility] Comment on above: Performed By: #### C DP, CP ####[address] [address] #### GLYHGB ####[address] [place] [address] Aspartate aminotransferase (AST) 17 U/L Normal <32 [facility] Comment on above: Performed By: #### C DP, CP ####[facility] [place] [address] #### GLYHGB ####[address] [address] Bilirubin Ql (U) 0.36 mg/dL Normal 0.3-1.2 [facility] Comment on above: Performed By: #### C DP, CP ####[address] [address] #### GLYHGB ####[address] [address] Calcium 9.9 mg/dL Normal 8.6-10.4 [facility] Comment on above: Performed By: #### C DP, CP ####[address] [place] [address] #### GLYHGB ####[address] [address] Chloride 102 mmol/L Normal 98-107 [facility] Comment on above: Performed By: #### C DP, CP ####[facility] [place] [address] [place] [address] #### GLYHGB ####[address] [address] CO2 27 mmol/L Normal 20-31 [facility] Comment on above: Performed By: #### C DP, CP ####[facility] [place] [address] [place] [address] #### GLYHGB ####[facility] [place] [address] Creatinine 1.00 mg/dL High 0.50-0.90 [facility] Comment on above: Performed By: #### C DP, CP ####[facility] [place] [address] #### GLYHGB ####[address] [address] eGFR (non-black) mL/min/{1.73_m2} Normal >60 [facility] Comment on above: Performed By: #### C DP, CP ####[address] [address] #### GLYHGB ####[address] [address] eGFR (non-black) 57 mL/min/{1.73_m2} Low >60 [facility] Comment on above: Performed By: #### C DP, CP ####[address] [address] #### GLYHGB ####[address] [address] Glucose mass conc 95 mg/dL Normal 70-99 [facility] Comment on above: Performed By: #### C DP, CP ####[facility] [place] [address] #### GLYHGB ####[address] [address] Potassium molar conc 4.3 mmol/L Normal 3.7-5.3 [facility] Comment on above: Performed By: #### C DP, CP ####[address] [place] [address] #### GLYHGB ####[facility] [place] [address] Protein 6.8 g/dL Normal 6.4-8.3 [facility] Comment on above: Performed By: #### C DP, CP ####[address] [place] [address] #### GLYHGB ####[address] [address] Sodium 141 mmol/L Normal 135-144 [facility] Comment on above: Performed By: #### C DP, CP ####[address] [address] #### GLYHGB ####[address] [address] Urea nitrogen 21 mg/dL High 6-20 [facility] Comment on above: Performed By: #### C DP, CP ####[address] [place] [address] #### GLYHGB ####[address] [place] [address] Albumin/Globulin Ratio NOT REPORTED Normal 1.0-2.5 [facility] Comment on above: Performed By: #### C DP, CP ####[facility] [place] [address] [place] [address] #### GLYHGB ####[facility] [place] [address] BUN/CRE Ratio NOT REPORTED Normal 9-20 [facility] Comment on above: Performed By: #### C DP, CP ####[address] [place] [address] #### GLYHGB ####[address] [address] Staging: NOT REPORTED Normal [facility] Comment on above: Performed By: #### C DP, CP ####[address] [address] #### GLYHGB ####[address] [address] Hemoglobin A1Con 2017 Glucose mass conc 94 mg/dL Normal [facility] Comment on above: Result Comment: The ADA and AACC recommend providing the estimated average glucose result to permit better patient understanding of their HBA1c result.Performed at [address] [address] Performed By: #### C DP, CP ####[address] [address] #### GLYHGB ####[address] [address] Hemoglobin A1c/Hemoglobin.total mass fraction (Bld) 4.9 % Normal 4.0-6.0 [facility] Comment on above: Performed By: #### C DP, CP ####[address] [address] #### GLYHGB ####[address] [address] Valproic Acidon 11-01-2017 Valproic Acid 56 ug/mL Normal 50-125 [facility] Comment on above: Performed By: #### V ALPC ####[address] [address] Date last dose, 5270613 Normal [facility] Comment on above: Performed By: #### V ALPC ####[facility] [place] [address] Dose amount 500 Normal [facility] Comment on above: Performed By: #### V ALPC ####[facility] [facility] [address] Time last dose, 0842 Normal [facility] Comment on above: Result Comment: Perf ormed at [facility] [address] [place] [address] Performed By: #### V ALPC ####[facility] [place] [address] Vital Signs Date Time Vital Sign Value Performing Clinician Facility 07-06-2023 09:30-0500 Body height 160.02 cm Santa Augustin Other [facility] [employer] Other 07-06-2023 09:30-0500 Body mass index (BMI) [Ratio] 26.75 kg/m2 Santa Augustin Other [facility] Other 07-06-2023 09:30-0500 Body weight 68.49 kg Santa Augustin Other [employer] Other 07-06-2023 09:30-0500 Diastolic blood pressure 85 mm[Hg] Santa Augustin Other [employer] Other 07-06-2023 09:30-0500 Systolic blood pressure 129 mm[Hg] Santa Augustin Other [employer] Other 03-23-2023 16:40-0400 Body height 160.02 cm Zachary Maria Dolores Other [employer] Other 03-23-2023 16:40-0400 Body mass index (BMI) [Ratio] 26.92 kg/m2 Zachary Maria Dolores Other [employer] Other 03-23-2023 16:40-0400 Body temperature 97.4 [degF] Zachary Maria Dolores Other [employer] Other 03-23-2023 16:40-0400 Body weight 68.95 kg Zachary Maria Dolores Other [employer] Other 03-23-2023 16:40-0400 Diastolic blood pressure 78 mm[Hg] Zachary Maria Dolores Other [employer] Other 03-23-2023 16:40-0400 Respiratory rate 18 /min Zachary Maria Dolores Other [employer] Other 03-23-2023 16:40-0400 SaO2% (BldA) [Mass fraction] 96 % Zachary Maria Dolores Other [employer] Other 03-23-2023 16:40-0400 Systolic blood pressure 113 mm[Hg] Zachary Maria Dolores Other [employer] Other 01-20-2023 15:15-0400 Body height 160.02 cm Santa Augustin Other [employer] Other 01-20-2023 15:15-0400 Body mass index (BMI) [Ratio] 26.21 kg/m2 Santa Augustin Other [employer] Other 01-20-2023 15:15-0400 Body weight 67.13 kg Santa Augustin Other [employer] Other 01-20-2023 15:15-0400 Diastolic blood pressure 78 mm[Hg] Santa Augustin Other [employer] Other 01-20-2023 15:15-0400 Systolic blood pressure 116 mm[Hg] Santa Augustin Other [employer] Other 11-16-2022 14:40-0400 Body height 160.02 cm Zachary Maria Dolores Other [employer] Other 11-16-2022 14:40-0400 Body mass index (BMI) [Ratio] 27.77 kg/m2 Zachary Maria Dolores Other [employer] Other 11-16-2022 14:40-0400 Body temperature 96.7 [degF] Zachary Maria Dolores Other [employer] Other 11-16-2022 14:40-0400 Body weight 71.12 kg Zachary Maria Dolores Other [employer] Other 11-16-2022 14:40-0400 Diastolic blood pressure 69 mm[Hg] Zachary Maria Dolores Other [employer] Other 11-16-2022 14:40-0400 Respiratory rate 18 /min Zachary Maria Dolores Other [employer] Other 11-16-2022 14:40-0400 SaO2% (BldA) [Mass fraction] 99 % Zachary Maria Dolores Other [employer] Other 11-16-2022 14:40-0400 Systolic blood pressure 108 mm[Hg] Zachary Maria Dolores Other [employer] Other 05-06-2022 10:40-0500 Body height 160.02 cm Zachary Maria Dolores Other [employer] Other 05-06-2022 10:40-0500 Body mass index (BMI) [Ratio] 27.42 kg/m2 Zachary Maria Dolores Other [employer] Other 05-06-2022 10:40-0500 Body weight 70.22 kg Zachary Maria Dolores Other [employer] Other 05-06-2022 10:40-0500 Diastolic blood pressure 54 mm[Hg] Zachary Maria Dolores Other [employer] Other 05-06-2022 10:40-0500 Respiratory rate 18 /min Zachary Maria Dolores Other [employer] Other 05-06-2022 10:40-0500 SaO2% (BldA) [Mass fraction] 99 % Zachary Maria Dolores Other [employer] Other 05-06-2022 10:40-0500 Systolic blood pressure 122 mm[Hg] Zachary Maria Dolores Other [employer] Other 03-23-2022 07:30-0400 Body temperature 97.9 [degF] MD Santa Augustin Work Phone: [facility] 03-23-2022 07:30-0400 Diastolic blood pressure 90 mm[Hg] MD Santa Augustin Work Phone: [facility] 03-23-2022 07:30-0400 Heart rate 90 /min MD Santa Augustin Work Phone: [facility] 03-23-2022 07:30-0400 SaO2% (BldA) [Mass fraction] 97 % MD Santa Augustin Work Phone: [facility] 03-23-2022 07:30-0400 Systolic blood pressure 133 mm[Hg] MD Santa Augustin Work Phone: [facility] 03-22-2022 22:24-0400 Respiratory rate 16 /min MD Santa Augustin Work Phone: [facility] 03-22-2022 09:00-0400 Body weight 73.93 kg MD Santa Augustin Work Phone: [facility] 03-18-2022 09:21-0400 Body height 160.02 cm MD Santa Augustin Work Phone: [facility] 03-11-2022 23:31-0400 Body temperature 97.2 [degF] MD Santa Augustin Work Phone: [facility] 03-11-2022 23:31-0400 Diastolic blood pressure 95 mm[Hg] MD Santa Augustin Work Phone: [facility] 03-11-2022 23:31-0400 Heart rate 76 /min MD Santa Augustin Work Phone: [facility] 03-11-2022 23:31-0400 Respiratory rate 18 /min MD Santa Augustin Work Phone: [facility] 03-11-2022 23:31-0400 SaO2% (BldA) [Mass fraction] 100 % MD Santa Augustin Work Phone: [facility] 03-11-2022 23:31-0400 Systolic blood pressure 187 mm[Hg] MD Santa Augustin Work Phone: [facility] 03-11-2022 18:16-0400 Body height 160.02 cm MD Santa Augustin Work Phone: [facility] 03-11-2022 18:16-0400 Body weight 72 kg MD Santa Augustin Work Phone: [facility] 09-14-2021 15:34-0400 Body height 160 cm Juan Summers MD Work Phone: [facility] 09-14-2021 15:34-0400 Body mass index (BMI) [Ratio] 27.63 kg/m2 Juan Summers MD Work Phone: [facility] 09-14-2021 15:34-0400 Body weight 70.76 kg Juan Summers MD Work Phone: [facility] 09-14-2021 15:34-0400 Diastolic blood pressure 86 mm[Hg] Juan Summers MD Work Phone: [facility] 09-14-2021 15:34-0400 Heart rate 69 /min Juan Summers MD Work Phone: [facility] 09-14-2021 15:34-0400 Respiratory rate 16 /min Juan Summers MD Work Phone: [facility] 09-14-2021 15:34-0400 SaO2% (BldA) [Mass fraction] 97 % Juan Summers MD Work Phone: [facility] 09-14-2021 15:34-0400 Systolic blood pressure 132 mm[Hg] Juan Summers MD Work Phone: [facility] 05-06-2021 16:25-0500 Body height 160.02 cm Geneva Naik Other [employer] Other 05-06-2021 16:25-0500 Body mass index (BMI) [Ratio] 29.05 kg/m2 Geneva Naik Other [employer] Other 05-06-2021 16:25-0500 Body temperature 98.6 [degF] Geneva Naik Other [employer] Other 05-06-2021 16:25-0500 Body weight 74.39 kg Geneva Naik Other [employer] Other 05-06-2021 16:25-0500 Diastolic blood pressure 90 mm[Hg] Geneva Naik Other [employer] Other 05-06-2021 16:25-0500 Respiratory rate 18 /min Geneva Naik Other [employer] Other 05-06-2021 16:25-0500 SaO2% (BldA) [Mass fraction] 100 % Geneva Naik Other [employer] Other 05-06-2021 16:25-0500 Systolic blood pressure 142 mm[Hg] Geneva Naik Other [employer] Other 04-01-2021 16:40-0400 Body height 160.02 cm Zachary Maria Dolores Other [employer] Other 04-01-2021 16:40-0400 Body mass index (BMI) [Ratio] 29.37 kg/m2 Zachary Maria Dolores Other [employer] Other 04-01-2021 16:40-0400 Body temperature 97.1 [degF] Zachary Maria Dolores Other [employer] Other 04-01-2021 16:40-0400 Body weight 75.21 kg Zachary Maria Dolores Other [employer] Other 04-01-2021 16:40-0400 Diastolic blood pressure 82 mm[Hg] Zachary Maria Dolores Other [employer] Other 04-01-2021 16:40-0400 Respiratory rate 18 /min Zachary Maria Dolores Other [employer] Other 04-01-2021 16:40-0400 SaO2% (BldA) [Mass fraction] 98 % Zachary Maria Dolores Other [employer] Other 04-01-2021 16:40-0400 Systolic blood pressure 116 mm[Hg] Zachary Maria Dolores Other [employer] Other 08-22-2020 14:30-0400 BMI (Body Mass Index) 26.57 kg/m2 [facility] 08-22-2020 14:30-0400 Body weight 68.04 kg [facility] 08-22-2020 14:30-0400 Height 160 cm [facility] Encounters Encounter Date Encounter Type Care Provider Facility Start: 07-06-2023 End: 07-06-2023 ambulatory Santa Augustin Other [employer] Other Start: 07-06-2023 Encounter for genera l adult medical examination without abnormal findings Santa Augustin [facility] Start: 07-06-2023 Periodic preventive med est patient 40-64yrs Santa Augustin [facility] Start: 03-23-2023 End: 03-23-2023 ambulatory Zachary Maria Dolores Other [employer] Other Start: 03-23-2023 Office outpatient vi sit 15 minutes Zachary Maria Dolores [facility] Nephrology Start: 01-20-2023 End: 01-20-2023 ambulatory Santa Augustin Other [employer] Other Start: 01-20-2023 Office outpatient vi sit 15 minutes Santa Augustin [facility] Start: 11-16-2022 End: 11-16-2022 ambulatory Zachary Maria Dolores Other [employer] Other Start: 11-16-2022 Office outpatient vi sit 25 minutes Zachary Maria Dolores [facility] Nephrology Start: 06-21-2022 End: 06-21-2022 ambulatory [place] [facility] Start: 06-21-2022 End: 06-21-2022 Office outpatient visit 15 minutes Juan Summers MD Work Phone: [facility] Comment on above: KALEN (generalized anx iety disorder) Start: 05-26-2022 End: 05-27-2022 ambulatory JUAN SUMMERS Facility:[facility] Start: 05-14-2022 ambulatory [place] [facility] Ambulatory Start: 05-08-2022 End: 05-09-[address] [place] Facility:[facility] Start: 05-06-2022 End: 05-06-2022 ambulatory Zachary Maria Dolores Other [employer] Other Start: 05-06-2022 Office outpatient vi sit 15 minutes Zachary Maria Dolroes [facility] Start: 04-26-2022 End: 04-26-2022 ambulatory [place] [facility] Start: 04-26-2022 End: 04-26-2022 Phys/qhp telephone evaluation 11-20 min Juan Summers MD Work Phone: [facility] Comment on above: Long-term use of hig h-risk medication (Primary Dx); Bipolar affective disorder, manic, severe, with psychotic behavior (HCC) Start: 04-20-2022 End: 04-20-2022 ambulatory Zachary Maria Dolores Other [employer] Other Start: 04-20-2022 Telephone encounter Zachary Maria Dolores [facility] Start: 04-19-2022 End: 04-19-2022 ambulatory [place] [facility] Start: 04-19-2022 End: 04-19-2022 Office outpatient visit 25 minutes Juan Summers MD Work Phone: [facility] Comment on above: Bipolar affective di sorder, manic, severe, with psychotic behavior (HCC) (Primary Dx); KALEN (generalized anxiety disorder) Start: 04-08-2022 End: 04-09-[address] DENTON ROLAND Facility:[facility] Start: 03-31-2022 Adult health examination [place] Other [employer] Other Start: 03-31-2022 Problem, abnormal examination Santa Augustin Other [employer] Other Start: 03-24-2022 ambulatory [place] [facility] Ambulatory Start: 03-12-2022 End: 03-23-2022 Evaluation and management of inpatient Marco A Zaman Facility:[facility] Start: 03-11-2022 End: 03-23-2022 Evaluation and management of inpatient MD Santa Augustin Work Phone: [facility] Start: 02-12-2022 End: 02-12-2022 ambulatory [place] [facility] Start: 02-12-2022 End: 02-12-2022 Phys/qhp telephone evaluation 11-20 min Juan Summers MD Work Phone: [facility] Comment on above: Bipolar 1 disorder, manic, moderate (HCC) (Primary Dx); Anxiety Start: 02-09-2022 Orders Only Juan Summers MD Work Phone: [facility] Start: 01-22-2022 End: 01-23-2022 ambulatory JUAN SUMMERS Facility:[facility] Start: 01-18-2022 End: 01-18-2022 ambulatory [place] [facility] Start: 12-10-2021 End: 12-10-2021 ambulatory Zachary Pascual Other [facility] [facility] [employer] Other Start: 12-10-2021 Telephone encounter Zachary Pascual [facility] Start: 12-07-2021 End: 12-07-2021 ambulatory ROSMERY TAVARES . Facility:[facility] Start: 12-05-2021 End: 12-06-2021 ambulatory JUAN SUMMERS Facility:[facility] Start: 11-19-2021 Documentation procedure Upende r Gehlot MD Work Phone: [facility] Start: 11-17-2021 End: 11-17-2021 ambulatory Zachary Pascual Other [facility] [employer] Other Start: 11-17-2021 Telephone encounter Zachary Pascual [facility] Nephrology Ben Start: 09-21-2021 End: 09-22-[address] [place] Facility:[facility] Start: 09-14-2021 End: 09-14-2021 ambulatory [place] [facility] Start: 09-14-2021 End: 09-14-2021 Office outpatient visit 25 minutes Juan Summers MD Work Phone: [facility] Comment on above: KALEN (generalized anx iety disorder) (Primary Dx); Bipolar 1 disorder, manic, mild (HCC); Long-term use of high-risk medication; Anxiety Start: 08-25-2021 Orders Only Yuni Khan Gr und SCRAPE GATHERER Work Phone: [facility] Comment on above: Anxiety (Primary Dx) KALEN (generalized anx iety disorder) Start: 08-21-2021 Refill Ebony Black LPN [facility] Comment on above: KALEN (generalized anx iety disorder) Start: 05-21-2021 Refill Ami Agustin MA [facility] Comment on above: KALEN (generalized anx iety disorder) Start: 05-06-2021 End: 05-06-2021 ambulatory Geneva Naik [facility] [employer] Other Start: 05-06-2021 Office outpatient vi sit 15 minutes Geneva Naik [facility] Ben Start: 04-01-2021 Office outpatient vi sit 15 minutes Zachary Pascual [facility] Nephrology Start: 02-13-2021 End: 02-13-2021 Office outpatient visit 25 minutes Juan Summers MD Work Phone: [facility] Comment on above: KALEN (generalized anx iety disorder) Start: 01-27-2021 Documentation procedure Fred Tenorio LPN [facility] Start: 08-22-2020 End: 08-22-2020 Phys/qhp telephone evaluation 21-30 min Juan Summers Work Phone: [facility] Comment on above: Bipolar 1 disorder, manic, mild (HCC) (Primary Dx); KALEN (Generalized Anxiety Disorder); Long-term use of high-risk medication Start: 07-14-2020 End: 07-14-2020 Refill Juan Summers Work Phone: [facility] Comment on above: KALEN (Generalized Anx iety Disorder) (Primary Dx) Start: 10-26-2017 End: 11-22-2017 Evaluation and management of inpatient [place] [facility] Procedures Date Procedure Procedure Detail Performing Clinician Start: 09-07-2021 Colonoscopy Juan rodrigues MD Work Phone: Start: 11-11-2020 Mammography Juan rodrigues MD Work Phone: Start: 10-29-2020 Mammography Heidi portillo LPN Start: 11-22-2017 DISCHARGE PATIENT [place] DEMETRIA Start: 11-20-2017 VALPROIC ACID LEVEL, TOTAL [place] Start: 11-15-2017 Mri brain brain stem w/o contrast material [place] Start: 11-15-2017 Blood count complete auto&auto difrntl wbc [place] Start: 11-15-2017 Comprehensive metabo lic panel [place] Start: 11-09-2017 AMMONIA [place] Start: 11-09-2017 Blood count complete auto&auto difrntl wbc [place] Start: 11-09-2017 COMPREHENSIVE METABO LIC PANEL W/ REFLEX TO MG FOR LOW K [place] Start: 11-09-2017 T. 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 MEDICINE [place] Start: 11-08-2017 MISCELLANEOUS NURSIN G CARE ORDER (SPECIFY) [place] Start: 2017 Blood count complete auto&auto difrntl wbc [place] Start: 2017 Comprehensive metabo lic panel [place] Start: 2017 Hemoglobin glycosylated a1c [place] Start: 11-03-2017 PT EVAL AND TREAT [place] AUGUSTIN Start: 11-01-2017 VALPROIC ACID LEVEL, TOTAL [place] Start: 10-26-2017 DIET GENERAL [place]TH[place] UN Start: 10-26-2017 FULL CODE [place] Start: 10-26-2017 SUICIDE PRECAUTIONS ALVARO CYNTHIA AUGUSTIN Start: 10-26-2017 TOBACCO CESSATION EDUCATION [place] DEMETRIA Start: 10-26-2017 VITAL SIGNS [place] Start: 10-26-2017 PATIENT STATUS (FROM ED OR OR/PROCEDURAL) [place] SARS Antigen (LFIA) MD [place] Work Phone: Screening for malign ant neoplasm of breast Santa Augustin Other Urine culture MD Santa george Work Phone: Viral screening Santa Augustin Other Plan of Treatment Date Care Activity Detail Author Start: 09-08-2031 Screening for malign ant neoplasm of colon [facility] Start: 05-31-2029 Tetanus vaccination Tetanus: Every 1 0yrs [facility] Start: 05-03-2022 End: 04-26-2023 [place] [Moles/volume] in Serum or Plasma [place] Level Lab Routine Long-term use of high-risk medication Bipolar affective disorder, manic, severe, with psychotic behavior (HCC) Expected: 05/03/2022, Expires: 04/26/2023 [facility] Work Phone: Comment on above: Expected: 05/03/2022 , Expires: 04/26/2023 Start: 04-26-2022 End: 04-26-2022 Telemedicine consultation with patient 04/26/2022 Telemedicine Telephone Psychiatry Juan Summers MD [facility] [place] [address] [facility] Start: 03-23-2022 [facility] Start: 03-12-2022 Hospital admission [facility] Start: 03-12-2022 Vitamin D, 25-hydrox y measurement [facility] Start: 03-12-2022 [facility] Start: 02-12-2022 End: 02-12-2022 Telemedicine consultation with patient 02/12/2022 Telemedicine Telephone Psychiatry Juan Summers MD [address] [facility] [address] [place] [id number] [facility] Start: 02-04-2022 Influenza vaccination Sequenti al Influenza Vaccine (#1) [facility] Start: 01-15-2022 End: 01-15-2022 Patient encounter procedure 01/15/2022 Office Visit Juan Chavez MD [address] [place] [phone] [facility] Start: 01-05-2022 COVID-19 Vaccine (5 - Booster for Pfizer series) COVID-19 Vaccine (5 - Booster for Pfizer series) [facility] Start: 12-08-2021 End: 12-08-2021 Patient encounter procedure 12/08/2021 Office Visit Juan Chavez MD [address] [facility] [address] [place] [phone] [facility] Start: 11-11-2021 Screening for malign ant neoplasm of breast Mammogram [facility] Start: 10-29-2021 Screening for malign ant neoplasm of breast Mammogram [facility] Start: 09-26-2021 History and physical examination, annual for health maintenance Wellness Visit [facility] Start: 09-14-2021 End: 09-14-2021 Patient encounter procedure 09/14/2021 Office Visit Juan Chavez MD [address] [place] [phone] [facility] Start: 09-07-2021 COVID-19 Vaccine (4 - Booster for Pfizer series) COVID-19 Vaccine (4 - Booster for Pfizer series) [facility] Start: 03-11-2021 COVID-19 Vaccine (3 - Booster for Pfizer series) COVID-19 Vaccine (3 - Booster for Pfizer series) [facility] Start: 02-13-2021 End: 02-13-2021 Patient encounter procedure 02/13/2021 Office Visit Psychiatry Juan Summers MD [address] [facility] [address] [place] [phone] [facility] Start: 02-09-2021 COVID-19 Vaccine (3 - Booster for Pfizer series) COVID-19 Vaccine (3 - Booster for Pfizer series) [facility] Start: 02-04-2021 Influenza vaccination Sequenti al Influenza Vaccine (#1) [facility] Start: 11-24-2020 End: 11-24-2020 Office Visit 11/24/2020 Office Visit Psychiatry Juan Summers MD [address] [facility] [address] [place] [phone] [facility] Start: 09-22-2020 End: 09-22-2020 [place] [Moles/Vol] [place] Level Lab Routine Bipolar 1 disorder, manic, mild (HCC) KALEN (Generalized Anxiety Disorder) Long-term use of high-risk medication Expected: 09/22/2020, Expires: 09/22/2020 [facility] Comment on above: Expected: 09/22/2020 , Expires: 09/22/2020 Start: 09-22-2020 End: 09-22-2020 Urinalysis Urinalysis Lab Routine Bipolar 1 disorder, manic, mild (HCC) KALEN (Generalized Anxiety Disorder) Long-term use of high-risk medication Expected: 09/22/2020, Expires: 09/22/2020 [facility] Comment on above: Expected: 09/22/2020 , Expires: 09/22/2020 Start: 09-08-2020 COVID-19 Vaccine (2 - Pfizer 2-dose series) COVID-19 Vaccine (2 - Pfizer 2-dose series) [facility] Start: 08-22-2020 End: 08-22-2020 Office Visit 08/22/2020 Office Visit Psychiatry Juan Summers MD [address] [facility] [address] [place] [address] [phone] [facility] Start: 02-05-2020 Influenza vaccinatio n given Sequential Influenza Vaccine (#1) [facility] Start: 08-23-2015 Administration of he rpes zoster vaccine Zoster Vaccines (2 of 3) [facility] Start: 11-03-2009 Administration of he rpes zoster vaccine Zoster Vaccines (1 of 2) [facility] Start: 11-03-2009 Screening for malign ant neoplasm of colon [facility] Start: 11-03-1977 Hepatitis C antibody , confirmatory test Hepatitis C Screening [facility] Start: 11-03-1977 Hepatitis C screening Hepatitis C Sc reening [facility] Start: 11-03-1974 HIV screening HIV Screening [facility] Start: 1971 Adolescent depressio n screening assessment Depression Screening (PHQ9) [facility] Start: 11-03-1969 Albumin DL <= 20 mg/ L (U) [Mass/Vol] Urine Microalbumin [facility] Start: 11-03-1969 Microalbumin measurement, urine, quantitative Urine Microalbumin [facility] Start: 11-03-1969 Urine screening for protein Urine Microalbumin [facility] Start: 11-03-1965 Pneumococcal Vaccine : Ped or At-Risk (1 - PCV) Pneumococcal Vaccine: Ped or At-Risk (1 - PCV) [facility] Start: 11-03-1965 Pneumococcal Vaccine : Ped or At-Risk (1 of 4 - PCV13) Pneumococcal Vaccine: Ped or At-Risk (1 of 4 - PCV13) [facility] Start: 11-03-1962 History and physical examination, annual for health maintenance Wellness Visit [facility] Start: 1959 Screening for malign ant neoplasm of cervix Pap Smear [facility] Start: 1959 Screening for malign ant neoplasm of colon [facility] Start: 1959 Screening mammography Mammogram [facility] Start: 1959 Tetanus vaccination Tetanus: Every 1 0yrs [facility] Bacteria identified in Urine by Culture [facility] Calculated LDL cholesterol level [facility] Work Phone: Cholesterol [Mass/volume] in Serum or Plasma [facility] Work Phone: Cholesterol in HDL [Mass/volume] in Serum or Plasma [facility] Work Phone: Cholesterol.total/Ch oles terol in HDL [Mass Ratio] in Serum or Plasma [facility] Work Phone: End: 08-22-2021 Comprehensive metabolic 2000 panel Comprehensive Metabolic Panel Lab Routine Bipolar 1 disorder, manic, mild (HCC) KALEN (Generalized Anxiety Disorder) Long-term use of high-risk medication 1 Occurrences starting 08/22/2020 until 08/22/2021 [facility] Comment on above: 1 Occurrences starti ng 08/22/2020 until 08/22/2021 Patient Education Schizophrenia (DC) [facility] [place] Instructions [facility] Work Phone: Patient referral [facility] Work Phone: Thyrotropin [Units/volume] in Serum or Plasma [facility] Work Phone: Triglyceride [Mass/volume] in Serum or Plasma [facility] Work Phone: End: 08-22-2021 TSH Qn TSH Lab Routine Bipolar 1 disorder, manic, mild (HCC) KALEN (Generalized Anxiety Disorder) Long-term use of high-risk medication 1 Occurrences starting 08/22/2020 until 08/22/2021 [facility] Comment on above: 1 Occurrences starti ng 08/22/2020 until 08/22/2021 Vitamin D, 25-hydrox y measurement [facility] Work Phone: VLDL cholesterol measurement [facility] Work Phone: Payers Date Payer Category Payer Unknown [id number] 2022 Unknown [id number] 2021 Self-pay [id number] Medicare [id number] 1959 Unknown [id number] 1959 Unknown [id number] [id number] 1959 Unknown [id number] [id number] 1959 Unknown [id number] [id number] 1959 Unknown [id number] 2.16.840.1.150960.3.579.2.903 1959 Unknown [id number] 2.16.840.1.224687.3.579.2.90 1959 Unknown [id number] 2.16.840.1.574532.3.579.2.903 1959 Unknown [id number] 2.16.840.1.199138.3.579.2.90 1959 Unknown [id number] 2.16.840.1.757852.3.579.2.593 1959 Unknown [id number] 2.16.840.1.451523.3.579.2.593 1959 Unknown [id number] 2.16.840.1.718394.3.579.2.593 1959 Unknown [id number] 2.16.840.1.278194.3.579.2.593 1959 Unknown [id number] 2.16.840.1.791210.3.579.2.593 1959 Unknown [id number] 2.16.840.1.713352.3.579.2.593 1959 Unknown [id number] 2.16.840.1.473457.3.579.2.593 1959 Unknown [id number] [id number] Medicare [id number] [id number] Unknown [facility] [employer] [id number] Effective for all dates [phone] [address] [address] [place] [address] [id number] Unknown [id number] Unknown [id number] Unknown [id number] Social History Date Type Detail Facility Tobacco smoking stat us [facility] Unknown if ever smoked [facility] Start: 1960 Sex Assigned At Not on file [facility] Start: 08-22-2020 End: 03-12-2022 Tobacco smoking status NHIS Never smoker [facility] Start: 08-22-2020 Tobacco use and exposure Never used [facility] Start: 08-22-2020 End: 06-21-2022 Alcohol intake Ex-drinker (finding) [facility] Start: 09-04-2021 End: 06-21-2022 Exposure to SARS-CoV-2 (event) Not sure [facility] Start: 08-22-2020 Cigarette pack-years [facility] Sex Assigned At Sex Assigned At [facility] [employer] Other Start: 1960 Sex Assigned At Female F [facility] Goals Date Patient Goal Desired Activity /State Functional Status Date Assessment Result Facility 03-23-2022 Functional status Patient at [facility] Work Phone: Mental Status Date Assessment Result Facility 03-23-2022 Cognitive function Cognitive Sta tus Patient at [facility] Work Phone: Clinical Notes 01-27-2021 to 07-06-2023 Note Date & Type Note Facility 07-06-2023 Evaluation note Encounter Date Diagnosis Assessment Notes Jun, Well adult exam (ICD-10 - Z00.00) We have discussed the necessity of following up with PCP regularly as well as specialists, as needed. Discussed F/U with dentistry and optometry at least yearly. Discussed all preventative measures/ cancer screenings as applicable to this patient. Emphasized the importance of a reduced fat, low carb diet to promote heart health and controlled blood sugars. Reviewed social history and ensured patient is safe within the home today. Pt denies any abuse of alcohol, nicotine, caffeine or recreational drugs. I have ensured patient is of stable mental and physical health today. We have discussed appropriate F/U schedule as well as blood work and vaccinations that apply. All questions answered and patient is sent home pleased, without concerns. [employer] Other 10-18-2023 Evaluation note* Encounter Date Diagnosis Assessment Notes Treatment Notes Treatment Clinical Notes Mar, Chronic kidney disea se, stage 3b (ICD-10 - N18.32) She has a CKD likely due to the chronic interstitial nephritis due to the prolonged lithium use. Her baseline serum creatinine 1.5 mg/dL. She has no evidence of hematuria and proteinuria on UA. Her renal ultrasound showed bilateral renal cortical atrophy and bilateral renal cysts. I have advised her to avoid magnesium based laxatives Mar, [place] use (ICD-10 - Z79.899) She has a bipolar disorder and currently takes lithium. Continue follow-up with psychiatrist and get periodically lithium level checked to avoid lithium toxicity. Mar, Hypercalcemia (ICD-1 0 - E83.52) She has hypercalcemia with hyperparathyroidism. She denies any intake of the calcium and vitamin D supplement. She has unremarkable work-up for paraproteinemia. Mar, Hyperparathyroidism (ICD-10 - E21.3) She has hyperparathyroidism with hypercalcemia likely primary hyperparathyroidism. She was seen by Dr. Marrufo. Advised to continue to follow with Dr. Marrufo. [employer] Other 08-17-2023 Evaluation note* Encounter Date Diagnosis Assessment Notes Treatment Notes Treatment Clinical Notes Jan, Screening mammogram for breast cancer (ICD-10 - Z12.31) Jan, Gastroenteritis (ICD-10 - K52.9) Explained to pt that they have a virus and is non-toxic. Explained antibiotics do not fight viruses. Educated pt on not overprescribing antibiotics. Clear liquids and advance as tolerated to BRAT diet. yogurt or probiotics. Plenty of fluids. good handwashing. Answered all questions. Pt in agreement with tx. Pt sent home stable. If any new or worsening sx, go to ER or RTO. Symptoms have improved today [employer] Other 06-13-2023 Evaluation note* Encounter Date Diagnosis Assessment Notes Treatment Notes Treatment Clinical Notes Nov, Chronic kidney disea se, stage 3b (ICD-10 - N18.32) She has a CKD likely due to the chronic interstitial nephritis due to the prolonged lithium use. Her serum creatinine is 1.7 mg/dL above her baseline serum creatinine 1.2 to 1.4 mg/dL. This is likely due to the hemodynamic changes in setting of hypercalcemia. Advised her to adequately hydrate herself. She has no evidence of hematuria and proteinuria on UA. Her renal ultrasound showed bilateral renal cortical atrophy and bilateral renal cysts. I have advised her to avoid magnesium based laxatives Nov, [place] use (ICD-10 - Z79.899) She has a bipolar disorder and currently takes lithium. Continue follow-up with psychiatrist and get periodically lithium level checked to avoid lithium toxicity. Nov, Hypercalcemia (ICD-1 0 - E83.52) She has hypercalcemia with hyperparathyroidism. She denies any intake of the calcium and vitamin D supplement. Other possibility is paraproteinemia although she has hemoglobin so suspicion is low. We will order the work-up to rule it out. Nov, Hyperparathyroidism (ICD-10 - E21.3) She has hyperparathyroidism with hypercalcemia likely primary hyperparathyroidism. I referred her to asset protection manager Dr. Marrufo. [employer] Other 01-18-2023 History of Present illness Narrative* Juan Summers MD - 06/23/2022 2:20 PM EST BEHAVIORAL HEALTH PSYCHIATRIC PROGRESS NOTE Date of service: 06/21/2022 Nola Bautista, a 61 y.o. female, psychotropic medication management follow-up Patient is referred by Santa Augustin MD . Interval History: Patient seen with . Patient reports feeling down and depressed, has been sleeping more. Has been tearful. Continues to have some mood congruent psychotic symptoms. She has paranoid ideations according to her . Off and on she will report auditory and visual hallucinations. She was not responding to inner stimuli during the interview. She was tearful during the entire session. But was able to engage and reports that she still has some racing thoughts and distractibility. She has been able to care for her ADLs and hygiene with help. She has not been violent or aggressive. Patient denies any ongoing suicidal ideation. Patient denies any ongoing homicidal ideation. Anxiety distressis moderate. Patient has been able to fall asleep and stay asleep but has been having difficulty waking up. Reports fatigue and tiredness. She started the restart of lithium well. We will continue to adjust and optimize treatment. Plan was discussed with and patient Medication assessed: Patient is compliant. Discussed medication adjustments. Patient has benefited from lithium and Zyprexa and Klonopin in the past. We will try to get back to her old regimen. Givenpatient's severity of symptoms. Acknowledging how she had been in the past and she does tend to have slow recovery but when she is in full remission she tends to do well. We are hoping that changes in her medication management we will able to achieve that in the next couple of months Goals and objectives of treatment: Prevent psychiatric hospitalizations Improve and stabilize mood Eliminate psychosis Treatment compliance PFSH: Past Medical History: Diagnosis Date Anxiety Bipolar disorder (HCC) CKD (chronic kidney disease), stage II 08/22/2020 Psychiatric disorder Social History Substance and Sexual Activity Alcohol Use Not Currently Social History Substance and Sexual Activity Drug Use Never Social History Substance and Sexual Activity Sexual Activity Not on file Family History Problem Relation Age of Onset No Known Problems Other Kidney disease Neg Hx Transient ischemic attack Neg Hx Lung disease Neg Hx Liver disease Neg Hx The following portions of the patient's history were reviewed and updated as appropriate: allergies, current medications, past family history, past medical history, past social history, past surgicalhistory, and problem list. Review of Systems Constitutional: Negative. HENT: Negative. Eyes: Negative. Respiratory: Negative. Cardiovascular: Negative. Gastrointestinal: Negative. Endocrine: Negative. Genitourinary: Negative. Musculoskeletal: Negative. Skin: Negative. Allergic/Immunologic: Negative. Neurological: Negative. Hematological: Negative. Physical Exam PSYCHIATRIC EXAM: Grooming & Hygiene: Casually dressed and fairly groomed General Behavior: Can be engaged, needs redirections Psychomotor Activity: Restless Speech: Soft tone but speech is clear and coherent Flow to Thought: Mild racing thoughts Thought Associations: Intact Content of Thought: No evidence of suicidal ideations / homicidal ideations , some paranoid ideations and off and on auditory hallucinations Mood: Depressed Affect: Tearful Insight: limited Judgment: limited Orientation: alert and oriented to person, place, time Memory: Recent intact Attention: Distractible Concentration: Reduced Language: Average Fund of Knowledge: Average Labs/ Diagnostic Imaging reviewed: Hospital labs ASSESSMENT AND PLAN: Follow-up plan was discussed with patient. Impression/ Plan: [place] I: Bipolar disorder, type I, most recent episode mixed, severe with psychosis , generalized anxiety disorder [place] II: Deferred [place] III: CKD stage III [place] IV: other psychosocial or environmental problems Miami V: 51-60 moderate symptoms Recommendations: Treatment Plan: Pharmacological management: Alternative medication plans were discussed with the patient/guardian. All relevant side effects and potential adverse effects were discussed with the patient/guardian. Standard cautions and potential benefits were discussed. FDA label and OFF label uses of medications were discussed. Patient/Guardian consented to the start/continuation of the following: Taper and discontinue Trileptal in January 1 week Taper and discontinue Invega in the next 2 weeks Continue Klonopin 1 mg p.o. daily at bedtime Restart Zyprexa and titrate to 10 mg p.o. daily at bedtime and next 1 week Continue Lithobid 900 mg p.o. daily Will monitor side effects and progress and adjust medications appropriately Crisis Intervention plan was discussed and agreed upon. Patient/Guardian will call 911 in case of emergency. Emergency contact information was provided to the patient/guardian. Laboratory and other tests: See orders. Psychotherapy: None Follow up as scheduled or return early if needed. School or community referral: None Treatment Goals and Objectives discussed. Other Referrals/Consults/Psychological Testing: None Juan Summers documented in this [id number] History of Present illness Narrative* Juan Summers MD - 05/10/2022 8:23 PM EST Telephone Visit Via Phone Call [facility] [phone] Telephone Visit [facility] 04/26/2022 Juan Summers MD Provider Location: [facility]. Patient Location Commercial Assistant: None Patient Location: Patient's Home Patient: Nola Bautista Date of : 1960 (61 y.o. female) PCP: Santa Augustin MD I discussed risks, benefits and alternatives of a telephone visit telemedicine consultation with the patient (and any accompanying persons) including the risks that the patient's personal health details and medical records will be discussed over real-time, synchronous, interactive audio technology,the visit will not be recorded without the express consent of both the provider and the patient, and that there are inherent diagnostic limitations compared to [id number] evaluations. We elected toproceed with the telephone visit telemedicine consultation. HPI Patient was interviewed over the phone, was present. Spouse reports that patient is making some progress with the start of lithium. Mood is getting more stable. Patient is less manic and is significantly less paranoid. She is also not endorsing any auditory or visual citations. Racing thoughts and distractibility is down. Sleep is improving, patient has been able to fall asleep and stay asleep without any issues. She is not reporting any suicidal ideation. reports patient is notresponding to internal stimuli. She is staying here for ADLs and hygiene. Anxiety distress is moderate. She has not been violent or aggressive. She has not made any threats or gestures of self-harm. She is still tearful at times. Reassurance was provided. She is tolerating the lithium well. Her backend java developer is on board with lithium as per her spouse's report. Patient denies feeling hopeless or helpless. Appetite is adequate. Medication assessed: Patient is compliant. No side effects reported. We will continue to monitor daily functions and will get lithium level The following portions of the patient's history were reviewed and updated as appropriate: allergies, current medications, past family history, past medical history, past social history, past surgicalhistory, and problem list. Review of Systems All other systems reviewed and are negative. Patient's Medications New Prescriptions LITHIUM (ESKALITH) 450 MG CR TABLET Take 1 (one) tablet (450 mg total) by mouth daily . Previous Medications CLONAZEPAM (KLONOPIN) 1 MG TABLET Take 1 (one) tablet (1 mg total) by mouth nightly (Days supply per fill: 30) . INVEGA SUSTENNA 156 MG/ML SYRG ADMINISTER 1 ML IN THE MUSCLE EVERY 30 DAYS OXCARBAZEPINE (TRILEPTAL) 300 MG TABLET Take 1 (one) tablet (300 mg total) by mouth 2 (two) times aday . PALIPERIDONE (INVEGA) 9 MG 24 HR TABLET Take 1 (one) tablet (9 mg total) by mouth daily . Modified Medications No medications on file Discontinued Medications No medications on file Assessment/Plan: Diagnoses and all orders for this visit: Long-term use of high-risk medication - [place] Level; Future Bipolar affective disorder, manic, severe, with psychotic behavior (HCC) - [place] Level; Future Other orders - lithium (ESKALITH) 450 MG CR tablet; Take 1 (one) tablet (450 mg total) by mouth daily . Current Global assessment of functionin Treatment Plan: Pharmacological management: Alternative medication plans were discussed with the patient/guardian. All relevant side effects and potential adverse effects were discussed with the patient/guardian. Standard cautions and potential benefits were discussed. FDA label and OFF label uses of medications were discussed. Patient/Guardian consented to the start/continuation of the following: Current Outpatient Medications: Continue clonazePAM (KlonoPIN) 1 MG tablet, Take 1 (one) tablet (1 mg total) by mouth nightly (Dayssupply per fill: 30) ., Disp: 30 tablet, Rfl: 2 Discontinued Invega Sustenna injection Continue lithium (ESKALITH) 450 MG CR tablet, Take 1 (one) tablet (450 mg total) by mouth daily ., Disp: 30 tablet, Rfl: 0 Continue OXcarbazepine (TRILEPTAL) 300 MG tablet, Take 1 (one) tablet (300 mg total) by mouth 2 (two) times a day ., Disp: 60 tablet, Rfl: 1 Continue paliperidone (INVEGA) 9 MG 24 hr tablet, Take 1 (one) tablet (9 mg total) by mouth daily ., Disp: 30 tablet, Rfl: 1 Will monitor side effects and progress and adjust medications appropriately Crisis Intervention plan was discussed and agreed upon. Patient/Guardian will call 911 in case of emergency. Emergency contact information was provided to the patient/guardian. Laboratory and other tests: See orders. Psychotherapy: None Follow up as scheduled or return early if needed. School or community referral: None Treatment Goals and Objectives discussed. Other Referrals/Consults/Psychological Testing: None I have spent 15 minutes with the patient reviewing the HPI and Plan of Care. documented in this [id number] Evaluation note* Encounter Date Diagnosis Assessment Notes Treatment Notes Treatment Clinical Notes May, Chronic kidney disea se, stage 3b (ICD-10 - N18.32) She has a CKD likely due to the chronic interstitial nephritis due to the prolonged lithium use. Her serum creatinine fluctuates 1.2 to 1.4 mg/dL. She has no evidence of hematuria and proteinuria on UA. Her renal ultrasound showed bilateral renal cortical atrophy and bilateral renal cysts. She was still recently resumed back on the lithium. We will check her renal function again. May, [place] use (ICD-10 - Z79.899) She has a bipolar disorder and currently takes lithium. Continue follow-up with psychiatrist and get periodically lithium level checked to avoid lithium toxicity. May, Hypermagnesemia (ICD -10 - E83.41) He has hypermagnesemia likely due to supplements. I have advised him to stop the multivitamin May, Secondary hyperparathyroidism (ICD-10 - N25.81) She has secondary hyperparathyroidism due to CKD. Her Calcium, Phos and Vit D are normal. [employer] Other 11-15-2022 History of Present illness Narrative* Juan Summers MD - 04/20/2022 11:32 AM EST BEHAVIORAL HEALTH PSYCHIATRIC PROGRESS NOTE 04/19/2022 Nola Bautista, a 61 y.o. female, psychotropic medication management follow-up Patient is referred by Santa Augustin MD . Interval History: Patient is seen in office for psychotropic medication management follow-up and hospital follow-up. Patient was hospitalized at [facility] from 03/11 to 03/23/2022 for worsening mood instability with psychotic features. Patient has declined since her lithium was started. Despite recommendations that lithium be continued patient and guardian/ decided to discontinue lithium given her kidney issues. Despite encouragement that we will continue to assess kidney functions on a regular basis they decided to stop lithium. Zyprexa was titrated to 20 mg p.o. daily at bedtime but even that did not keep patient's moods stable and patient declined consistently during the month of February and early March and was finally hospitalized. Patient was discharged home on Invega sustained and oral Invega along with Trileptal. Patient continues to have moderate mixed mood symptoms with psychosis. Patient believes that her is having an affair with Ruby Boss from friends. She has told her that she has seenRuby Boss and Fidel Barakat in their home being things around. Patient is still having paranoid ideations but no padma delusions right now. She denies any auditory or visual hallucinations during the session. She is sleeping around 11 hours. She is still taking her Klonopin. Patient has been tearful and labile. She feels helpless and worthless and hopeless. Mind is still racing and she has flight of ideas and mild psychomotor agitation. Speech is halting but clear and coherent. Patient denies any suicidal ideation. Denies any homicidal ideation. We again discussed in detail alternatives as well as restart of lithium. Patient has an appointmentcoming Tuesday with her kidney specialist. For now we will continue the same plan as she was on after the discharge. Medication assessed: Patient is compliant. Denies any ongoing side effects. We will continue with same plan Goals and objectives of treatment: Prevent psychiatric hospitalizations Improve and stabilize mood Eliminate psychosis PFSH: Past Medical History: Diagnosis Date Anxiety Bipolar disorder (HCC) CKD (chronic kidney disease), stage II 08/22/2020 Psychiatric disorder Social History Substance and Sexual Activity Alcohol Use Not Currently Social History Substance and Sexual Activity Drug Use Never Social History Substance and Sexual Activity Sexual Activity Not on file Family History Problem Relation Age of Onset No Known Problems Other Kidney disease Neg Hx Transient ischemic attack Neg Hx Lung disease Neg Hx Liver disease Neg Hx The following portions of the patient's history were reviewed and updated as appropriate: allergies, current medications, past family history, past medical history, past social history, past surgicalhistory, and problem list. Review of Systems Constitutional: Negative. HENT: Negative. Eyes: Negative. Respiratory: Negative. Cardiovascular: Negative. Gastrointestinal: Negative. Endocrine: Negative. Genitourinary: Negative. Musculoskeletal: Negative. Skin: Negative. Allergic/Immunologic: Negative. Neurological: Negative. Hematological: Negative. Physical Exam PSYCHIATRIC EXAM: Grooming & Hygiene: Casually dressed and fairly groomed General Behavior: Defensive Psychomotor Activity: Restless Speech: Halting, clear and coherent Flow to Thought: flight of ideas Thought Associations: Intact Content of Thought: No evidence of suicidal ideations / homicidal ideations /paranoid ideation, auditory/visual hallucinations Mood: Bad Affect: labile Insight: limited Judgment: limited Orientation: alert and oriented to person, place, time Memory: Recent intact Attention: Distractible Concentration: Reduced Language: Average Fund of Knowledge: Average Labs/ Diagnostic Imaging reviewed: Hospital labs ASSESSMENT AND PLAN: Follow-up plan was discussed with patient. Impression/ Plan: [place] I: Bipolar disorder, type I, most recent episode manic with psychosis [place] II: Deferred [place] III: CKD stage III [place] IV: other psychosocial or environmental problems [place] V: 51-60 moderate symptoms Recommendations: Treatment Plan: Pharmacological management: Alternative medication plans were discussed with the patient/guardian. All relevant side effects and potential adverse effects were discussed with the patient/guardian. Standard cautions and potential benefits were discussed. FDA label and OFF label uses of medications were discussed. Patient/Guardian consented to the start/continuation of the following: Continue Trileptal 300 mg p.o. twice daily Continue paliperidone 9 mg p.o. daily Continue Klonopin 1 mg p.o. daily at bedtime Patient will continue to receive Invega Sustenna 156 mg IM every 28 days. Patient got her first maintenance dose of 156 mg IM x1 today Will monitor side effects and progress and adjust medications appropriately Crisis Intervention plan was discussed and agreed upon. Patient/Guardian will call 911 in case of emergency. Emergency contact information was provided to the patient/guardian. Laboratory and other tests: See orders. Psychotherapy: None Follow up as scheduled or return early if needed. School or community referral: None Treatment Goals and Objectives discussed. Other Referrals/Consults/Psychological Testing: None Juan Summers documented in this [id number] Progress note Author Marco A Zaman [facility] March 22, 2022 3:02pm Note Date/Time March 22, 2022 3 :00pm [facility] [address] [place] [address] Psychiatry Progress Note Signed Patient: Nola Bautista MR#: [id number] : 1960 Acct:[id number] Age/Sex: 61 / F Adm Date: 2 Loc: 1S Room: [address] [place] [address] Type : ADM IN Attending Dr: Marco A Zaman MD Copies to: ~ Date of Service: 03/22/2022 Subjective Subjective Narrative: Jessie reported that she slept a bit better yesterday. She reported that she is feeling better but does feel a bit tired. Denied any hallucinations or paranoia. I spoke with her who reported that she has improved a little bit. He is concerned about some owning as the night visit tends to go worse. He will let us know on how he thinks she is doing. Mental status exam: Appearance: tearful Mood: fine Affect: Constricted affect Speech and Movement: Speech and movement normal and speech clear Attitude: cooperative Thought Process: distracted Thought Content: Less paranoid thoughts. Improved visual and auditory hallucinations, no homicidality, no suicidality Insight: Improved Judgment: Improved Exam Physical Exam Vital Signs: Temp Pulse Resp BP Pulse Ox O2 Del Method 97.6 F 81 18 130/84 98 Room Air 03/22/22 07:30 03/22/22 07:30 03/22/22 07:30 03/22/22 07:30 03/22/22 07:30 03/22/22 07:30 Assessment/Plan Assessment/Plan (1) Schizophrenia: Code(s): F20.9 - Schizophrenia, unspecified Status: Acute Plan Patient was internally stimulated but does seem a bit paranoid and has been wanting to leave Continue Invega to 9 mg daily and continue Trileptal 300 mg twice a day She received Invega Sustenna 234 mg IM first dose on 03/17/2022 and Invega 156 mg received today 03/22/2022 Continue to monitor blood pressure Continue to monitor mental status Encourage group participation and medication compliance Risk benefits alternatives explained Documented By: Marco A Zaman MD 03/22/22 [id number] Signed By: <Electronically signed by Marco A Zaman MD> 03/22/22 3488 [facility] Work Phone: 1(451) 905-717110-16-2022 Progress note Author Horacio bethea [facility] March 21, 2022 9:54am Note Date/Time March 21, 2022 9 :52am [facility] [address] [place] [address] Psychiatry Progress Note Signed Patient: Nola Bautista MR#: [id number] 1468 : 1960 Acct:[id number] Age/Sex: 61 / F Adm Date: 2 Loc: 1S Room: 7Z0925-1 Type : ADM IN Attending Dr: Marco A Zaman MD Copies to: ~ Date of Service: 03/21/2022 Subjective Subjective Narrative: Jessie reported feeling sad due to being in the hospital. She reports some that she was hearing voices at times and appears internally stimulated. He is tolerating Invega and denied any side effects. No EPS or TD on exam Mental status exam: Appearance: tearful Mood: fine Affect: Constricted affect Speech and Movement: Speech and movement normal and speech clear Attitude: cooperative Thought Process: distracted Thought Content:+ve for paranoid thoughts. Improved visual and auditory hallucinations, no homicidality, no suicidality Insight: Improved Judgment: Improved Exam Physical Exam Vital Signs: Temp Pulse Resp BP Pulse Ox O2 Del Method 98 F 104 H 16 138/84 97 Room Air 03/21/22 07:30 03/21/22 07:30 03/21/22 07:30 03/21/22 07:30 03/21/22 07:30 03/21/22 09:00 Assessment/Plan Assessment/Plan (1) Schizophrenia: Code(s): F20.9 - Schizophrenia, unspecified Status: Acute Plan Patient informed staff that she has been hearing voices at times Increase Invega to 9 mg daily and continue Trileptal 300 mg twice a day She received Invega Sustenna 234 mg IM first dose on 03/17/2022 and booster doseis scheduled on 03/22/2022. Continue to monitor blood pressure Continue to monitor mental status Encourage group participation and medication compliance Risk benefits alternatives explained Documented By: Horacio Kim MD 2 0951 Signed By: <Electronically signed by Horacio Kim MD> 03/21/22 0954 [facility] Work Phone: 1(172) 799-397610-15-2022 Progress note Author Horacio bethea [facility] March 20, 2022 9:19am Note Date/Time March 20, 2022 9 :19am [facility] [address] [place] [address] Psychiatry Progress Note Signed Patient: Nola Bautista MR#: [id number] 1468 : 1960 Acct:[id number] Age/Sex: 61 / F Adm Date: 2 Loc: Room: [address] [place] [address] Type : ADM IN Attending Dr: Marco A Zaman MD Copies to: ~ Date of Service: 03/20/2022 Subjective Subjective Narrative: Jessie reported that she is feeling okay and has no AVH today. She reports her paranoid thoughts are decreasing compared to the time of admission. She is tolerating medications and denied side effects. Mental status exam: Appearance: tearful Mood: fine Affect: Constricted affect Speech and Movement: Speech and movement normal and speech clear Attitude: cooperative Thought Process: distracted Thought Content:+ve for paranoid thoughts. Improved visual and auditory hallucinations, no homicidality, no suicidality Insight: Improved Judgment: Improved Exam Physical Exam Vital Signs: Temp Pulse Resp BP Pulse Ox O2 Del Method 97.6 F 86 14 144/93 H 100 Room Air 03/20/22 07:30 03/20/22 07:30 03/20/22 07:30 03/20/22 07:30 03/20/22 07:30 03/20/22 07:30 Assessment/Plan Assessment/Plan (1) Schizophrenia: Code(s): F20.9 - Schizophrenia, unspecified Status: Acute Plan Patient reports feeling better and having no paranoid thoughts or AVH Continue Invega 7.5 mg daily and Trileptal 300 mg twice a day She received Invega Sustenna 234 mg IM first dose on 03/17/2022 and booster doseis scheduled on 03/22/2022. Continue to monitor blood pressure Continue to monitor mental status Encourage group participation and medication compliance Risk benefits alternatives explained Documented By: Horacio Kim MD 2 18 Signed By: <Electronically signed by Horacio Kim MD> 03/20/22918 [facility] Work Phone: 1([phone]) 579-529910-14-2022 Progress note Author Horacio bethea [facility] March 19, 2022 9:03am Note Date/Time March 19, 2022 9 :03am [facility] [address] [place] [address] Psychiatry Progress Note Signed Patient: Nola Bautista MR#: [id number] 1468 : 1960 Acct:[id number] Age/Sex: 61 / F Adm Date: 2 Loc: 1S Room: [address] [place] [address] Type : ADM IN Attending Dr: Marco A Zaman MD Copies to: ~ Date of Service: 03/19/2022 Subjective Subjective Narrative: Jessie reported that she is sad because she is not discharged yet. I had a phone call with her yesterday who reported that the patient is still paranoid and reports on and off auditory hallucinations. She received the first dose of Invega Sustenna and she supposed to receive the booster dose prior to discharge. Mental status exam: Appearance: tearful Mood: fine Affect: Constricted affect Speech and Movement: Speech and movement normal and speech clear Attitude: cooperative Thought Process: distracted Thought Content:+ve for paranoid thoughts. Improved visual and auditory hallucinations, no homicidality, no suicidality Insight: Improved Judgment: Improved Exam Physical Exam Vital Signs: Temp Pulse Resp BP Pulse Ox O2 Del Method 98.1 F 92 H 18 135/90 99 Room Air 03/18/22 20:02 03/18/22 20:02 03/18/22 20:02 03/18/22 20:02 03/18/22 20:02 03/18/22 20:02 Objective Labs Labs: Abnormal Labs 03/19/22 05:18 BUN 28 H Creatinine 1.26 H Total Protein 5.9 L Assessment/Plan Assessment/Plan (1) Schizophrenia: Code(s): F20.9 - Schizophrenia, unspecified Status: Acute Plan Patient reports feeling sad due to not being discharged yet. Collateral from her indicate that she is still showing psychotic symptoms. Continue Invega 7.5 mg and Trileptal to 300 mg twice a day Initiate Invega Sustenna 234 mg IM first dose on 03/17/2022 and will schedule booster dose on 03/22/2022.. Continue to monitor blood pressure Continue to monitor mental status Encourage group participation and medication compliance Risk benefits alternatives explained Documented By: Horacio Kim MD 2 0902 Signed By: <Electronically signed by Horacio Kim MD> 03/19/22 0903 [facility] Work Phone: [phone]) 134-258410-13-2022 Progress note Author Horacio bethea [facility] March 18, 2022 8:44am Note Date/Time March 18, 2022 8 :44am [facility] [address] [place] [address] Psychiatry Progress Note Signed Patient: Nola Bautista MR#: [id number] 1468 : 1960 Acct:[id number] Age/Sex: 61 / F Adm Date: 2 Loc: Room: [address] [place] [address] Type : ADM IN Attending Dr: Marco A Zaman MD Copies to: ~ Date of Service: 03/18/2022 Subjective Subjective Narrative: Jessie reported that she is feeling paranoid. She recieved her first Invega sustenna yesterday but does not recall receiving it. Most recent creatninine is elevated and will order repeat CMP tomorrow. Risks, benefits and indications ofmedications were discussed with the patient. The patient verbalized understanding. Staff noted that she is internally stimulated. Mental status exam: Appearance: tearful Mood: fine Affect: Constricted affect Speech and Movement: Speech and movement normal and speech clear Attitude: cooperative Thought Process: distracted Thought Content:+ve for paranoid thoughts. Improved visual and auditory hallucinations, no homicidality, no suicidality Insight: Improved Judgment: Improved Exam Physical Exam Vital Signs: Temp Pulse Resp BP Pulse Ox O2 Del Method 97.6 F 91 H 18 130/81 97 Room Air 03/18/22 07:30 03/18/22 07:30 03/18/22 07:30 03/18/22 07:30 03/18/22 07:30 03/18/22 07:30 Assessment/Plan Assessment/Plan (1) Schizophrenia: Code(s): F20.9 - Schizophrenia, unspecified Status: Acute Plan Patient appears internally stimulated on exam. Continue Invega 7.5 mg and Trileptal to 300 mg twice a day Initiate Invega Sustenna 234 mg IM first dose on 03/17/2022. Continue to monitor blood pressure Continue to monitor mental status Encourage group participation and medication compliance Risk benefits alternatives explained Documented By: Horacio Kim MD 2 0843 Signed By: <Electronically signed by Horacio Kim MD> 03/18/22 0844 [facility] Work Phone: [phone] 340-812710-12-2022 Hospital Discharge instructions Additional Instructions Invega Sustenna 234mg injection given 03/17/2022. Invega Sustenna 156mg booster injection given 03/22/2022. Invega Injection Due on 04/19/2022 You have completed your course of antibiotics Regular diet. No activity restrictions.[facility] Work Phone: 1(146) 997-241210-12-2022 Progress note Author Horacio bethea [facility] March 17, 2022 9:33am Note Date/Time March 17, 2022 9 :31am [facility] [address] [place] [address] Psychiatry Progress Note Signed Patient: Nola Bautista MR#: [id number] 1468 : 1960 Acct:[id number] Age/Sex: 61 / F Adm Date: 2 Loc: Room: [address] [place] [address] Type : ADM IN Attending Dr: Marco A Zaman MD Copies to: ~ Date of Service: 03/17/2022 Subjective Subjective Narrative: Jessie reported that she is feeling paranoid. She is tearful on exam. She said medications are working for her hallucinations. She tolerated increasing the dose of Invega to 7.5 mg p.o. daily. Risks, benefits and indications of medications were discussed with the patient. The patient verbalized understanding. Staff noted that she is internally stimulated. Mental status exam: Appearance: tearful Mood: fine Affect: Constricted affect Speech and Movement: Speech and movement normal and speech clear Attitude: cooperative Thought Process: Improved Thought Content:+ve for paranoid thoughts. Improved visual and auditory hallucinations, no homicidality, no suicidality Insight: Improved Judgment: Improved Exam Physical Exam Vital Signs: Temp Pulse Resp BP Pulse Ox O2 Del Method 97.5 F L 87 16 135/91 98 Room Air 03/17/22 07:30 03/17/22 07:30 03/16/22 20:04 03/17/22 07:30 03/17/22 07:30 03/17/22 09:00 Assessment/Plan Assessment/Plan (1) Schizophrenia: Code(s): F20.9 - Schizophrenia, unspecified Status: Acute Plan Patient appears internally stimulated on exam. Continue Invega 7.5 mg and Trileptal to 300 mg twice a day Initiate Invega Sustenna 234 mg IM first dose today on 03/17/2022. Continue to monitor blood pressure Continue to monitor mental status Encourage group participation and medication compliance Risk benefits alternatives explained Documented By: Horacio Kim MD 2 930 Signed By: <Electronically signed by Horacio Kim MD> 03/17/22932 [facility] Work Phone: 1(648) 363-333410-11-2022 Progress note Author Horacio bethea [facility] March 16, 2022 9:48am Note Date/Time March 16, 2022 9 :47am [facility] [address] [place] [address] Psychiatry Progress Note Signed Patient: Nola Bautista MR#: [id number] 1468 : 1960 Acct:[id number] Age/Sex: 61 / F Adm Date: 2 Loc: Room: [address] [place] [address] Type : ADM IN Attending Dr: Marco A Zaman MD Copies to: ~ Date of Service: 03/16/2022 Subjective Subjective Narrative: Jessie reported that she is feeling paranoid. She said medications are working forher hallucinations. She tolerated increasing the dose of Invega to 7.5 mg p.o. daily. Risks, benefits and indications of medications were discussed with the patient. The patient verbalized understanding. Staff noted that she is internally stimulated. Mental status exam: Mental Status: mental status abnormal Mood: fine Affect: Constricted affect Speech and Movement: Speech and movement normal and speech clear Attitude: cooperative Thought Process: Improved Thought Content:+ve for paranoid thoughts. Improved visual and auditory hallucinations, no homicidality, no suicidality Insight: Improved Judgment: Improved Exam Physical Exam Vital Signs: Temp Pulse Resp BP Pulse Ox O2 Del Method 97.7 F 85 18 152/100 H 97 Room Air 03/16/22 07:30 03/16/22 07:30 03/16/22 07:30 03/16/22 07:30 03/16/22 07:30 03/16/22 08:55 Assessment/Plan Assessment/Plan (1) Schizophrenia: Code(s): F20.9 - Schizophrenia, unspecified Status: Acute Plan Patient appears internally stimulated on exam. Continue Invega to 7.5 mg and Trileptal to 300 mg twice a day Initiate Invega Sustenna 234 mg IM first dose tomorrow Continue to monitor blood pressure Continue to monitor mental status Encourage group participation and medication compliance Risk benefits alternatives explained Documented By: Horacio Kim MD 2 0946 Signed By: <Electronically signed by Horacio Kim MD> 03/16/22 0948 [facility] Work Phone: [phone]) 741-867010-10-2022 Progress note Author Horacio bethea [facility] March 15, 2022 8:53am Note Date/Time March 15, 2022 8 :52am [facility] [address] [place] [address] Psychiatry Progress Note Signed Patient: Nola Bautista MR#: [id number] 1468 : 1960 Acct:[id number] Age/Sex: 61 / F Adm Date: 2 Loc: Room: [address] [place] [address] Type : ADM IN Attending Dr: Marco A Zaman MD Copies to: ~ Date of Service: 03/15/2022 Subjective Subjective Narrative: Jessie reported that she is doing fine. She appears to be minimizing her symptoms. She is internally stimulated on exam and has been noted to be talkingto herself at times. She said medications are working for her hallucinations. We discussed increasing the dose of Invega to 7.5 mg p.o. daily. Risks, benefits and indications of medications were discussed with the patient. The patient verbalized understanding. Mental status exam: Mental Status: mental status abnormal Mood: fine Affect: Constricted affect Speech and Movement: Speech and movement normal and speech clear Attitude: cooperative Thought Process: Improved Thought Content: Improved visual and auditory hallucinations, no homicidality, no suicidality Insight: Improved Judgment: Improved Exam Physical Exam Vital Signs: Temp Pulse Resp BP Pulse Ox O2 Del Method 97.6 F 76 18 153/88 H 99 Room Air 03/15/22 07:28 03/15/22 07:28 03/15/22 07:28 03/15/22 07:28 03/15/22 07:28 03/15/22 07:28 Assessment/Plan Assessment/Plan (1) Schizophrenia: Code(s): F20.9 - Schizophrenia, unspecified Status: Acute Plan Patient appears internally stimulated on exam. Increase Invega to 7.5 mg and Trileptal to 300 mg twice a day Continue to monitor blood pressure Continue to monitor mental status Encourage group participation and medication compliance Risk benefits alternatives explained Documented By: Horacio Kim MD 2 0852 Signed By: <Electronically signed by Horacio Kim MD> 03/15/22 0853 [facility] Work Phone: [phone]) 450-917010-09-2022 Progress note Author Marco A Zaman [facility] March 14, 2022 11:32am Note Date/Time March 14, 2022 11 :32am [facility] [address] [place] [address] Psychiatry Progress Note Signed Patient: Noal Bautista MR#: [id number] 1468 : 1960 Acct:[id number] Age/Sex: 61 / F Adm Date: 2 Loc: Room: [address] [place] [address] Type : ADM IN Attending Dr: Marco A Zaman MD Copies to: ~ Date of Service: 03/14/2022 Subjective Subjective Narrative: Jessie reported that she is doing fine. She stated that she is tolerating her current medications. She reported that her hallucinations have improved and feels like her mood is more stable. She denied any side effects current medications. Mental status exam: Mental Status: mental status abnormal Mood: fine Affect: Constricted affect Speech and Movement: Speech and movement normal and speech clear Attitude: cooperative Thought Process: Improved Thought Content: Improved visual and auditory hallucinations, no homicidality, no suicidality Insight: Improved Judgment: Improved Exam Physical Exam Vital Signs: Temp Pulse Resp BP Pulse Ox O2 Del Method 98.3 F 82 16 137/85 100 Room Air 03/14/22 07:30 03/14/22 07:30 03/14/22 07:30 03/14/22 07:30 03/14/22 07:30 03/14/22 07:30 Assessment/Plan Assessment/Plan (1) Schizophrenia: Code(s): F20.9 - Schizophrenia, unspecified Status: Acute Plan Patient reported that she is doing better. Appears less internally stimulated at this time Continue Invega to 6 mg and Trileptal to 300 mg twice a day Continue to monitor blood pressure Continue to monitor mental status Encourage group participation and medication compliance Risk benefits alternatives explained Documented By: Marco A Zaman MD 03/14/221130 Signed By: <Electronically signed by Marco A Zamna MD> 03/14/221131 [facility] Work Phone: 1(484) 757-596010-08-2022 Progress note Author Marco A Zaman [facility] March 13, 2022 12:25pm Note Date/Time March 13, 2022 12 :25pm [facility] [address] [place] [address] Psychiatry Progress Note Signed Patient: Nola Bautista MR#: [id number] 1468 : 1960 Acct:[id number] Age/Sex: 61 / F Adm Date: 2 Loc: Room: [address] [place] [address] Type : ADM IN Attending Dr: Marco A Zaman MD Copies to: ~ Date of Service: 03/13/2022 Subjective Subjective Narrative: Jessie reported that she is doing fine. She continues to report auditory hallucinations and she was talking to herself as I approached her room. She stated that she is tolerating medications. She still has some distractibility and difficulty answering questions and then some repeat. She reported that she is eating okay and slept well overnight. Mental status exam: Mental Status: mental status abnormal Mood: fine Affect: Constricted affect Speech and Movement: Speech and movement normal and speech clear Attitude: cooperative Thought Process: Slow Thought Content: Positive visual and auditory hallucinations, no homicidality, no suicidality Insight: Poor Judgment: Poor Impulse control: Poor Exam Physical Exam Vital Signs: Temp Pulse Resp BP Pulse Ox O2 Del Method 97.4 F L 89 20 157/101 H 100 Room Air 03/13/22 07:30 03/13/22 07:30 03/13/22 07:30 03/13/22 07:30 03/13/22 07:30 03/13/22 07:30 Assessment/Plan Assessment/Plan (1) Schizophrenia: Code(s): F20.9 - Schizophrenia, unspecified Status: Acute Plan Patient continues to have auditory and visual hallucinations. Objectively seemsto be internally stimulated Increase Invega to 6 mg and Trileptal to 300 mg twice a day Continue to monitor blood pressure Continue to monitor mental status Encourage group participation and medication compliance Risk benefits alternatives explained Documented By: Marco A Zaman MD 03/13/221222 Signed By: <Electronically signed by Marco A Zaman MD> 03/13/225 [facility] Work Phone: 1([phone]) 986-699110-07-2022 History and physical note Author Marco A Zaman [facility] March 12, 2022 5:35pm Note Date/Time March 12, 2022 5: 29pm [facility] [address] [place] [address] Psychiatry H&P Signed Patient: Nola Bautista MR#: [id number] 1468 : 1960 Acct:[id number] Age/Sex: 61 / F Adm Date: 2 Loc: Room: [address] [place] [address] Type: ADM IN Attending Dr: Marco A Zaman MD Copies to: MD Santa Chase MD~ Date of Service: 03/12/2022 HPI Narrative Narrative: Nola Bautista is a 61-year-old female with a past history of bipolar disorder presenting with psychosis Patient came into emergency room last night with her bringing her. Family reports she has been having visual and auditory hallucinations. She was taken off of lithium several months ago due to renal concerns. She reports she has been feeling high and low repetitively in a short period. She was given IM Zyprexa last night. She does admit its time to work on [employer] . She is oriented to person and date. She believed she was at [facility] Patient is extremely tearful on exam. She feels that she has broken. She mentions she was feeling this way even on the lithium. Patient appears confused, requiring repeated questions. She maintains eye contact but appears inher own world. Depression 7, anxiety 10. Denies suicidality, homicidality. Admits to auditory and visual hallucinations. She says her imagination is showing her people she wants to see such as family members. She hears her sister and brother's voices. Past psych history: Bipolar disorder Past psychiatric hospitalizations: 03/06/2015 Past suicide attempts: Denies Family psych history: Cousin and uncle with bipolar disorder Previous medications: Effexor, divalproex, Zyprexa, Klonopin, Thorazine, lithium Smoking Status: Denies Tobacco Type: Denies Substance Use Type: Denies Alcohol: Denies Occupation: Denies Living situation: and dog Roxy Review of symptoms: Constitutional: Denies chills and Denies fever(s) Eyes: Denies change in vision ENT: Denies decreased hearing Cardiovascular: Denies chest pain Respiratory: Denies chest congestion and Denies cough Gastrointestinal: Denies change in bowel habits Genitourinary: Denies dysuria Musculoskeletal: Denies myalgias Integumentary/Breasts: Denies dry skin Neurologic: Denies abnormal gait and Denies abnormal movements Psychiatric: Denies auditory and visual hallucinations. Denies depression, denies suicidal ideation, denies homicidal ideation Physical exam: Const: cooperative Nutritional Appearance: normal weight Orientation: alert, awake and oriented x3 HEENT: Head normal to inspection, hearing grossly normal bilaterally, external nose normal, face symmetric Eyes: appearance normal, both eyes and all related structures, sclerae normal Neck: normal visual inspection and full ROM Resp: normal respiratory effort, able to speak in complete sentences and symmetric chest movement Cardio: regular rate GI: normal to inspection and non-distended Skin: warm, dry Neuro: CNII: Visual boo intact, CNIII,IV,: EOM intact, no nystagmus. Pupilsequal, round, reactive to light, CNV: Sensation intact to light touch, CNVII: Raises eyebrows, smile/frown, puff out cheeks symmetrically, CNVIII: Hearing intact bilaterally, CNIX,X: Voice normal, soft palate elevation normal, symmetrical, CNXI: Shoulder shrug strong, equal bilaterally, CNXII: Tongue protrusion midline, movement symmetrical. Extrem: normal to inspection and full ROM Mental status exam: Mental Status: mental status abnormal Mood: Depressed, tearful mood Affect: Appropriate affect Speech and Movement: Speech and movement normal and speech clear Attitude: cooperative Thought Process: Requires questions repeated, unclear if internal stimuli Thought Content: Positive visual and auditory hallucinations, no homicidality, no suicidality Insight: Poor Judgment: Poor Impulse control: Poor Patient was personally seen by me on the day of the encounter.? I reviewed the history and performed the mills elements of the physical examination.? I formulated the plan of care and confirmed this with the medical student as notedbelvladimir. Clien presenting due to concern for psychosis. Upon assessment, patient is internally stimulated and talking to herself. She also exhibits delayed responsewhen questions asked. She admits to [facility]. Recent medication changes discussed. Client questions if she will get better. PMFSH Vaccinated for COVID-19?: Unknown Medical History (Updated 03/12/22 @ 17:34 by Marco A Zaman MD) H/O bipolar disorder Schizophrenia Surgical History H/O knee surgery H/O: hysterectomy History of ankle surgery Social History Smoking Status: Never smoker Substance Use Type: None Meds Medications and Allergies Allergies No Known Allergies Allergy (Verified 03/11/22 18:16) Home Medications cephalexin 500 mg capsule 500 mg PO Q6H 10 days #40 caps 03/11/22 [Rx Confirmed 03/12/22] clonazepam 1 mg tablet 1 mg PO QHS 03/11/22 [History Confirmed 03/11/22] olanzapine 20 mg tablet 20 mg PO DAILY 03/11/22 [History Confirmed 03/11/22] Exam Physical Exam Vital Signs: Temp Pulse Resp BP Pulse Ox O2 Del Method 97.8 F 94 H 17 136/86 100 Room Air 03/12/22 07:30 03/12/22 07:30 03/12/22 07:30 03/12/22 07:30 03/12/22 07:30 03/12/22 09:00 Results Labs CBC & Chem 7: 03/11/22 19:02 03/11/22 19:02 Psychiatry Labs: 03/11/22 03/11/22 03/11/22 19:02 19:02 19:21 RBC 4.38 Hgb 13.5 Hct 40.8 MCV 93.2 MCH 30.7 MCHC 33.0 RDW 14.3 Plt Count 287 MPV 8.8 Sodium 140 Potassium 3.9 Chloride 102 Carbon Dioxide 24.9 Anion Gap 17.0 H BUN 30 H Creatinine 1.49 H Calcium 10.1 Total Bilirubin 0.8 AST 21 ALT 22 Alkaline Phosphatase 45 Total Protein 7.1 Albumin 3.9 Urine Color Yellow Urine Appearance Clear Urine pH 6.5 Ur Specific [place] 1.007 Urine Protein Negative Urine Glucose (UA) Normal Urine Ketones Negative Urine Occult Blood Negative Urine Nitrite Negative Ur Leukocyte Esterase 3+ H Urine RBC None seen Urine WBC 10-19 H Microbiology Microbiology: Microbiology - Results from entire visit 03/11/22 19:21 Urine - Clean-Voided Midstream Urine Culture - Preliminary No Growth 1 Day 03/11/22 19:33 Nasal SARS Antigen (LFIA) - Final Assessment/Plan (1) Schizophrenia: Code(s): F20.9 - Schizophrenia, unspecified Status: Acute Plan Presented with disorganized behavior, speech, and hallucinations. Start Trileptal 150mg BID Discontinue Zyprexa due to ineffectiveness. Will try invega 3mg daily Continue to monitor mental status Encourage group participation and medication compliance Risk benefits alternatives explained Documented By: Marco A Zaman MD 03/12/22 1017 Signed By: <Electronically signed by Marco A Zaman MD> 03/12/22 1737 [facility] Work Phone: 1(411) 236-992310-07-2022 NoteBedside Glucose CommentOctober 2021 6:09amSee commentGlu2: Procedure ErrorPoint of Care Veterans Health AdministrationComment on above:Glu2: Procedure [id number] History of Present illness Narrative* Juan Summers MD - 02/12/2022 2:36 PM EDT Telephone Visit Via Phone Call [facility] [phone] Telephone Visit [facility] 02/12/2022 Juan Summers MD Provider Location: [facility] Patient Location Commercial Assistant: None Patient Location: Patient's Home Patient: Nola Bautista Date of : 1960 (61 y.o. female) PCP: Santa Augustin MD I discussed risks, benefits and alternatives of a telephone visit telemedicine consultation with the patient (and any accompanying persons) including the risks that the patient's personal health details and medical records will be discussed over real-time, synchronous, interactive audio technology,the visit will not be recorded without the express consent of both the provider and the patient, and that there are inherent diagnostic limitations compared to [id number] evaluations. We elected toproceed with the telephone visit telemedicine consultation. HPI Patient's father called on February 09 reported patient has started to hallucinate and has been talking to her sister in her head. Zyprexa was increased to 15 mg daily at bedtime. Patient was interviewed on the phone. was also interviewed over the phone Spouse reports that increase in Zyprexa has helped the patient mildly for now. She has taken the increased dose for the last 3 nights. Patient was slightly irritable over the phone, does have mildly pressured speech. Patient reports she is fine and denies hearing any voices. does report that her hallucinations have decreased and she is not responding to internal stimuli and has not been talking to her sister. Sleep has improved since the increase in Zyprexa. Patient denies depressed mood. Patient denies any ongoing suicidal ideation. Patient has not been violent or aggressive. She hasnot made any threats or gestures of self-harm. Mild anxiety distress reported. Patient is mildly argumentative but can be redirected for now. Crisis plan was discussed in detail. Spouse will take patient to the nearest ER if she worsens. They will also consider retrial of lithium. Spouse will update us on Tuesday and we will adjust her Zyprexa further. Patient does not want to start Depakote because it causes constipation. Patient has also not tolerated the trial of lamotrigine in the past. Other alternatives were discussed briefly. We may consider adding Tegretol. Spouse and patient are hoping that increasing Zyprexa will help with mood stability and control her psychosis. Patient is compliant with her treatment. Denies any side effects. No ongoing drug or alcohol abuse reported Goals and objectives of treatment: Improve and stabilize mood Control psychosis Prevent psychiatric hospitalizations Cough The following portions of the patient's history were reviewed and updated as appropriate: allergies, current medications, past family history, past medical history, past social history, past surgicalhistory, and problem list. Review of Systems: Reviewed all systems negative Patient's Medications New Prescriptions No medications on file Previous Medications CLONAZEPAM (KLONOPIN) 1 MG TABLET Take 1 (one) tablet (1 mg total) by mouth nightly (Days supply per fill: 30) . OLANZAPINE (ZYPREXA) 10 MG TABLET Take 1.5 tablets daily at bedtime. Modified Medications none Discontinued Medications No medications on file Assessment/Plan: Bipolar disorder, type I, manic, mild to moderate with psychotic features Anxiety disorder not otherwise specified Current Global assessment of functionin Treatment Plan: Pharmacological management: Alternative medication plans were discussed with the patient/guardian. All relevant side effects and potential adverse effects were discussed with the patient/guardian. Standard cautions and potential benefits were discussed. FDA label and OFF label uses of medications were discussed. Patient/Guardian consented to the start/continuation of the following: Continue Klonopin 1 mg p.o. daily at bedtime Continue Zyprexa 15 mg p.o. daily at bedtime Patient's spouse will call back if she gets worse. They also think about restarting lithium Will monitor side effects and progress and adjust medications appropriately Crisis Intervention plan was discussed and agreed upon. Patient/Guardian will call 911 in case of emergency. Emergency contact information was provided to the patient/guardian. Laboratory and other tests: See orders. Psychotherapy: None Follow up as scheduled or return early if needed. School or community referral:: None Treatment Goals and Objectives discussed. Other Referrals/Consults/Psychological Testing: None I have spent 15 minutes with the patient reviewing the HPI and Plan of Care. documented in this [id number] History of Present illness Narrative* Juan Summers MD - 11/19/2021 11:40 AM EDT 10 minutes phone conversation with patient's spouse who is also her guardian regarding patient's kidney functions. There has been some decline in kidney functions and spouse is wondering if patient'slithium needs to be adjusted or discontinued. They have always understood that as long as patient'skidney functions stayed stable lithium would be on board to keep patient's mood stability. When there was initial decline in patient's kidney functions we had stopped patient's lithium but then patient had need to be hospitalized and became extremely manic with psychosis. We have closely monitors patient's kidney functions and kept her at a lowest effective dose of her lithium. At this time we will reduce lithium controlled release 450 mg to 1 tablet daily x1 week and then discontinue. We will repeat her kidney functions and 2 weeks after discontinuation of lithium. documented in this [id number] History of Present illness Narrative* Juan Summers MD - 09/14/2021 3:37 PM EDT BEHAVIORAL HEALTH PSYCHIATRIC PROGRESS NOTE DOS: 09/14/2021 ROV: Follow up Interval History: Patient seen for follow-up in the clinic with spouse. Continues to do well has nocomplaints to report. Spouse also has no new concerns Pa baseline mood stability is present. There has been no break manic or depressive episodes since she was last seen. Anxiety control is fair. She has had no breakthrough psychotic symptoms since she was last seen. Patient reports her moods have been fairly stable. She reports fair motivation and energy. Patient has been social and not withdrawn. Denies feeling hopeless. Denies any ongoing suicidal ideation intent or plan. No ongoing manic or hypomanic mood symptoms reported. Speech is within normal limits. Patient denies any ongoing flight of ideas or racing thoughts or increased busyness. Impulse control has been fair. Patient denies any ongoing thought content and thought process abnormalities Interpersonal issues were discussed: Support was provided Medication assessed: Compliance is good, no side effects reported. Fair response. We will continue the same plan Goals and objectives of treatment: Maintained baseline mood stability maintain fair anxiety control maintain treatment compliance Prevent psychosis Prevent hospitalizations PFSH: Past Medical History: Diagnosis Date Anxiety Bipolar disorder (HCC) CKD (chronic kidney disease), stage II 08/22/2020 Psychiatric disorder Social History Substance and Sexual Activity Alcohol Use Not Currently Social History Substance and Sexual Activity Drug Use Never Social History Substance and Sexual Activity Sexual Activity Not on file Family History Problem Relation Age of Onset No Known Problems Other Kidney disease Neg Hx Transient ischemic attack Neg Hx Lung disease Neg Hx Liver disease Neg Hx The following portions of the patient's history were reviewed and updated as appropriate: allergies, current medications, past family history, past medical history, past social history, past surgicalhistory and problem list. Review of Systems Constitutional: Negative. HENT: Negative. Eyes: Negative. Respiratory: Negative. Cardiovascular: Negative. Gastrointestinal: Negative. Endocrine: Negative. Genitourinary: Negative. Musculoskeletal: Negative. Allergic/Immunologic: Negative. Neurological: Negative. Hematological: Negative. AIMS exam completed: No abnormal involuntary movements noted or observed PSYCHIATRIC EXAM: Grooming & Hygiene: Well dressed and groomed. General Behavior: engaged, fair eye contact, Psychomotor Activity: Normal motor activity Speech: Normal rate and tone Flow to Thought: logical & goal directed Thought Associations: Intact Content of Thought: No hi/si, no thought content abnormalities reported Mood: 'Good' Affect: Pleasant and smiling Insight: fair Judgment: fair Orientation: alert and oriented to person, place, time Memory: intact Attention: adequate Concentration: adequate Language: Average Fund of Knowledge: Average Labs/ Diagnostic Imaging reviewed: Data review needed, labs obtained from [place] Response to Medication: Adequate ASSESSMENT AND PLAN: Follow-up plan was discussed with patient. Impression/ Plan: Bipolar disorder type I, most recent episode manic severe with psychotic features, in full remission Generalized anxiety disorder Current Global assessment of functionin Recommendations: Treatment Plan: Pharmacological management: Alternative medication plans were discussed with the patient/guardian. All relevant side effects and potential adverse effects were discussed with the patient/guardian. Standard cautions and potential benefits were discussed. FDA label and OFF label uses of medications were discussed. Patient/Guardian consented to the start/continuation of the following: Continue Zyprexa 10 mg 1 daily at bedtime Continue Klonopin 1 mg daily Continue lithium CR 450 mg 2 daily at supper Will monitor side effects and progress and adjust medications appropriately Crisis Intervention plan was discussed and agreed upon. Patient/Guardian will call 911 in case of emergency. Emergency contact information was provided to the patient/guardian. Laboratory and other tests: See orders. Psychotherapy: None Follow up as scheduled or return early if needed. School or community referral: None Treatment Goals and Objectives discussed. Other Referrals/Consults/Psychological Testing: None Patient is seen medical doctor tomorrow. They will have him order labs including lithium levels andwill fax when the labs are completed Juan Summers documented in this [id number] Telephone encounter Note* Telephone Encounter - Yuni Negron CNP - 08/25/2021 1:49 PM EDT Prescription for Clonazepam 1mg at bedtime #30, 0RF written to continue medication written for patient by provider, Dr. Summers. [facility] Work Phone: 1(188) 684-442303-22-2022 Miscellaneous Notes* Telephone Encounter - Yuni Negron CNP - 08/25/2021 1:49 PM EDT Prescription for Clonazepam 1mg at bedtime #30, 0RF written to continue medication written for patient by provider, Dr. Summers. * Telephone Encounter - Obdulia Woo MA - 08/25/2021 9:15 AM EDT I called the Pharmacy and they said that she doesn't have anymore refills on file, that her pcp sent 2 pills over on 08/19 but she hasn't had a months supply since 05/21. I called the patient and she said that she has one more pill left. If you would like I will put in another refill request. documented in this [id number] Telephone encounter Note* Telephone Encounter - Obdulia Woo MA - 08/25/2021 9:15 AM EDT I called the Pharmacy and they said that she doesn't have anymore refills on file, that her pcp sent 2 pills over on 08/19 but she hasn't had a months supply since 05/21. I called the patient and she said that she has one more pill left. If you would like I will put in another refill request. [id number] Telephone encounter Note* Telephone Encounter - Yuni Negron CNP - 08/24/2021 4:22 PM EDT Ms. Bautista has 1 refill remaining for Clonazepam 1mg nightly according to [facility]. Asked staff to let her know. [facility] Work Phone: [phone] Miscellaneous Notes* Telephone Encounter - Yuni Negron CNP - 08/24/2021 4:22 PM EDT Ms. Bautista has 1 refill remaining for Clonazepam 1mg nightly according to [facility]. Asked staff to let her know. * Telephone Encounter - Yuni Negron CNP - 08/24/2021 8:24 AM EDT It appears that Ms. Bautista has one refill remaining according to [facility] checked this morning. Please ask her to check with her pharmacist. Thank you! documented in this [id number] Telephone encounter Note* Telephone Encounter - Yuni Negron CNP - 08/24/2021 8:24 AM EDT It appears that Ms. Bautista has one refill remaining according to [facility] checked this morning. Please ask her to check with her pharmacist. Thank you! [id number] Evaluation note* Encounter Date Diagnosis Assessment Notes Treatment Notes Treatment Clinical Notes May, Acute pain of left knee (ICD-10 - M25.562) May, Closed sleeve fracture of left patella, initial encounter (ICD-10 - S82.092A) Wear the knee brace as much as possible. Use your crutches for ambulation. Tylenol or ibuprofen as needed for pain ice and elevate your knee as much as possible. Follow-up with Dr. Valentin, call Tuesday morning for an appointment to be seen in follow-up [employer] Other 10-27-2021 Evaluation note* Encounter Date Diagnosis Assessment Notes Treatment Notes Treatment Clinical Notes Mar, Chronic kidney disease, stage 3b (ICD-10 - N18.32) She has a CKD likely due to the chronic interstitial nephritis due to the prolonged vitamin use. She has no evidence of hematuria and proteinuria on UA. Her renal ultrasound showed bilateral renal cortical atrophy and bilateral renal cysts. Mar, [place] use (ICD-10 - Z79.899) She has a bipolar disorder and currently takes lithium. Continue follow-up with psychiatrist and get periodically lithium level checked to avoid lithium toxicity. Mar, Hypercalcemia (ICD-1 0 - E83.52) She has hypercalcemia likely due to the vitamin D. I have advised her to stop the vitamin D. I have ordered the PTH and vitamin D. Mar, Hypermagnesemia (ICD-10 - E83.41) He has hypermagnesemia likely due to supplements. I have advised him to stop the multivitamin [employer] Other 10-04-2021 History of Present illness Narrative* Juan Summers MD - 03/09/2021 10:52 PM EDT BEHAVIORAL HEALTH PSYCHIATRIC PROGRESS NOTE DOS: 02/13/2021 ROV: Follow up Interval History: Patient seen for follow-up in the clinic with spouse. Patient has been doing well and is maintaining her baseline mood stability. Discussed with her progress. He reported he has not witnessed any decline in patient's moods. Your also reported that patient has not had any breakthrough psychotic symptoms. Patient currently denies pervasive depressive mood .. She denies any ongoing pervasive sadness or anhedonia. She has been able to take care of her daily ADLs and chores and hygiene. Reports adequate energy and motivation. She has been going to [facility] and working out. Patient denies any ongoing excessive fatigue or tiredness. Patient reports adequate quality and quantity of sleep. Patient denies any ongoing suicidal ideation intent or plan. Spouse also reports that he has not witnessed any decline in patient's behaviors or mood. Patient denies any ongoing thought content or thought process abnormalities. Denies any ongoing perceptual disturbances. There is no evidence of patient responding to internal stimuli. Denies any ongoing command hallucinations. She does not report any ongoing manic or hypomanic mood symptoms. She denies any ongoing pervasive racing thoughts or flight of ideas. No increased dizziness or increased psychomotor agitation was reported. Patient denies any ongoing aggressive thoughts or thoughts of hurting others denies any HI. Patient's impulse control has been fair. Appetite is within normal limits. There is no hypersexuality or increased busyness Anxiety control is fair. Klonopin continues to help her breakthrough anxiety. Denies any ongoing drug or alcohol abuse. Interpersonal issues were discussed: Support was provided Medication assessed: Compliance is good, no side effects reported. Fair response. We will continue the same plan Goals and objectives of treatment: Maintained baseline mood stability maintain fair anxiety control maintain treatment compliance Prevent psychosis Prevent hospitalizations PFSH: Past Medical History: Diagnosis Date Anxiety Bipolar disorder (HCC) CKD (chronic kidney disease), stage II 08/22/2020 Psychiatric disorder Social History Substance and Sexual Activity Alcohol Use Not Currently Social History Substance and Sexual Activity Drug Use Never Social History Substance and Sexual Activity Sexual Activity Not on file Family History Problem Relation Age of Onset No Known Problems Other Kidney disease Neg Hx Transient ischemic attack Neg Hx Lung disease Neg Hx Liver disease Neg Hx The following portions of the patient's history were reviewed and updated as appropriate: allergies, current medications, past family history, past medical history, past social history, past surgicalhistory and problem list. Review of Systems Constitutional: Negative. HENT: Negative. Eyes: Negative. Respiratory: Negative. Cardiovascular: Negative. Gastrointestinal: Negative. Endocrine: Negative. Genitourinary: Negative. Musculoskeletal: Negative. Allergic/Immunologic: Negative. Neurological: Negative. Hematological: Negative. AIMS exam completed: No abnormal involuntary movements noted or observed PSYCHIATRIC EXAM: Grooming & Hygiene: casually dressed and age appropriate General Behavior: engaged Psychomotor Activity: Normal motor activity Speech: Normal rate and tone Flow to Thought: logical & goal directed Thought Associations: Intact Content of Thought: No hi/si, no thought content abnormalities reported Mood: 'fine' Affect: restricted Insight: fair Judgment: fair Orientation: alert and oriented to person, place, time Memory: intact Attention: adequate Concentration: adequate Language: Average Fund of Knowledge: Average Labs/ Diagnostic Imaging reviewed: Data review needed, labs obtained from [place] Response to Medication: Adequate ASSESSMENT AND PLAN: Follow-up plan was discussed with patient. Impression/ Plan: Bipolar disorder type I, most recent episode manic severe with psychotic features, in full remission Generalized anxiety disorder Current Global assessment of functionin Recommendations: Treatment Plan: Pharmacological management: Alternative medication plans were discussed with the patient/guardian. All relevant side effects and potential adverse effects were discussed with the patient/guardian. Standard cautions and potential benefits were discussed. FDA label and OFF label uses of medications were discussed. Patient/Guardian consented to the start/continuation of the following: Continue Zyprexa 10 mg 1 daily at bedtime Continue Klonopin 1 mg daily Continue lithium CR 450 mg 2 daily at supper Will monitor side effects and progress and adjust medications appropriately Crisis Intervention plan was discussed and agreed upon. Patient/Guardian will call 911 in case of emergency. Emergency contact information was provided to the patient/guardian. Laboratory and other tests: See orders. Psychotherapy: None Follow up as scheduled or return early if needed. School or community referral: None Treatment Goals and Objectives discussed. Other Referrals/Consults/Psychological Testing: None Juan Summers documented in this [id number] History of Present illness Narrative* Heidi Tenorio LPN - 01/27/2021 1:09 PM EDT Called and left message with medical records at [facility] letting them know that Dr. Summers wants all of patients lab work as far back as 5 years ago faxed to our office. Let them know that most of her labs had been ordered by Dr. Summers anyhow. Left my direct line and our fax number. documented in this encounterOhioHealthDischarge summary Author Marco A Zaman [facility] March 23, 2022 2:41pm Note Date/Time March 23, 2022 2 :37pm [facility] [address] [place] [address] Discharge Summary Signed Patient: Nola Bautista MR#: [id number] : 1960 Acct:[id number] Age/Sex: 61 / F Adm Date: 2 Loc: Room: 3P1533-[address]: Marco A Zaman MD Copies to: MD Santa Chase MD~ Providers Date of Discharge: 03/23/22 Discharging Provider: Marco A Zaman Primary Care Provider: Santa Augustin Discharge Diagnosis (1) Schizophrenia: Final Diagnosis Final Discharge Diagnosis: Schizophrenia Summary Hospital Course Hospital course: According to admission note: Nola Bautista is a 61-year-old female with a past history of bipolar disorder presenting with psychosis Patient came into emergency room last night with her bringing her.? Family reports she has been having visual and auditory hallucinations.? She was taken off of lithium several months ago due to renal concerns.? She reports she has been feeling high and low repetitively in a short period.? She was given IM Zyprexa last night.? She does admit its time to work on [employer] .? She is oriented to person and date.? She believed she was at [facility] Patient is extremely tearful on exam.? She feels that she has broken.? She mentions she was feeling this way even on the lithium.? Patient appears confused, requiring repeated questions.? She maintains eye contact but appears in her own world.? Depression 7, anxiety 10.? Denies suicidality, homicidality.?Admits to auditory and visual hallucinations.? She says her imagination is showing her people she wants to see such as family members.? She hears her sister and brother's voices. Past psych history: Bipolar disorder Past psychiatric hospitalizations: 03/06/2015 Past suicide attempts: Denies Family psych history: Cousin and uncle with bipolar disorder Previous medications: Effexor, divalproex, Zyprexa, Klonopin, Thorazine, lithium Smoking Status: Denies Tobacco Type: Denies Substance Use Type: Denies Alcohol: Denies Occupation: Denies Living situation: and dog Roxy Patient was continued on Xanax. Her Zyprexa was discontinued and switched to Invega. She received Invega Sustenna during hospitalization. She had gradual improvement of her symptoms of psychosis and mood instability. And her who came for visitation also noticed an improvement. She became more linear andorganized. She attended more groups. Her sleep gradually improved and she was less sedated during the day. On the day of discharge, she reported she was feeling better. She denied any depression or suicidality. Thinking was a bit slow but overall felt better. Has been also reported improvement during visitation. Condition Condition at Discharge: Stable Status at Discharge Cognitive/behavioral status at discharge: Mental Status Exam: Appearance: grossly normal Mental Status: mental status grossly normal Mood: Euthymic mood Affect: Normal affect Speech and Movement: speech and movement normal and speech clear Attitude: cooperative Thought Process: normal Thought Content: Denied hallucinations, no homicidality and no suicidality Insight: Good Judgment: Good Functional status at discharge: independent ambulation Overall status at discharge: patient is back to baseline Time Spent with Patient Time spent providing/coordinating discharge services (# min): 30 Exam Physical Exam Vital Signs: Temp Pulse Resp BP Pulse Ox O2 Del Method 97.9 F 90 16 133/90 97 Room Air 03/23/22 07:30 03/23/22 07:30 03/22/22 22:24 03/23/22 07:30 03/23/22 07:30 03/23/22 07:30 Discharge Plan Discharge Plan Patient Disposition: Home Activity: No Activity Restriction Diet: Regular Additional Instructions: Invega Sustenna 234mg injection given 03/17/2022. Invega Sustenna 156mg booster injection given 03/22/2022. Invega Injection Due on 04/19/2022 You have completed your course of antibiotics Regular diet. No activity restrictions. Instructions: Schizophrenia (DC), [facility] [place] Instructions Prescriptions: New oxcarbazepine 300 mg Tablet 300 mg PO BID 30 Days Qty: 60 0RF paliperidone 9 mg tablet extended release 24hr 9 mg PO DAILY 30 Days Qty: 30 0RF Invega Sustenna 156 mg/mL syringe 156 mg IM Q30D Qty: 1 0RF Continued clonazepam 1 mg tablet 1 mg PO QHS Label Comments: TAKE 1 TABLET BY MOUTH EVERY NIGHT AT BEDTIME Discontinued olanzapine 20 mg tablet 20 mg PO DAILY Follow Up: Dr. Juan Summers [Other] - 04/26/22 1:30 pm (Invega Injection due 04/19/22) [facility] [Other] - 03/25/22 9:30 am (Therapy with Shawn Valenzuelapayton) [facility] Hotline [Outside] Documented By: Marco A Zaman MD 03/23/22 1435 Signed By: <Electronically signed by Marco A Zaman MD> 03/23/22 1441 [facility] Work Phone: evaluation note* Diagnosis KALEN (generalized anxiety disorder) [facility]ized [facility] (generalized anxiety disorder) Generalized anxiety disorder [facility] Diagnosis KALEN (generalized anxiety disorder) Generalized anxiety disorder [facility] Diagnosis Anxiety- Primary Anxiety state, unspecified [facility] Diagnosis KALEN (generalized anxiety disorder) Generalized anxiety disorder [facility] Diagnosis KALEN (generalized anxiety disorder)- Primary Generalized anxiety disorder Bipolar 1 disorder, manic, mild (HCC) Long-term use of high-risk medication Anxiety Anxiety state, unspecified [facility] Other evaluation note* Diagnosis Bipolar 1 disorder, manic, moderate (HCC)- Primary Anxiety Anxiety state, unspecified [facility]* Diagnosis Onset Date Resolution Status Hallucinations acute UTI (urinary tract infection) acute [facility] Work Phone: evaluation note* Diagnosis Onset Date Resolution Status Hallucinations acute Schizophrenia acute UTI (urinary tract infection) acute [facility] Work Phone: evaluation note* Diagnosis Bipolar affective disorder, manic, severe, with psychotic behavior (HCC)- Primary Bipolar I disorder, most recent episode (or current) manic, severe, specified as with psychotic behavior KALEN (generalized anxiety disorder) Generalized anxiety disorder [facility]* Diagnosis Long-term use of high-risk medication- Primary Bipolar affective disorder, manic, severe, with psychotic behavior (HCC) Bipolar I disorder, most recent episode (or current) manic, severe, specified as with psychotic behavior [facility] - Reported* Type Description Date Medical History CKD STAGE 3 Medical History GERD Medical History DEPRESSION Medical History BIPOLAR AFFECTIVE DISORDER Medical History POSTMENOPAUSAL STATUS Medical History RIGHT LOWER QUADRANT ABDOMINAL M ASS Medical History SYNCOPE AND COLLAPSE Surgical History TOTAL LAP HYSTO, BSO LYSIS OF ADHESIONS, EXCISION OF 11CM PELVIC MASS CYSTOSCOPY Surgical History TONSILS AND ADNOIDS Surgical History RIGHT ROTATOR CUFF REPAIR Surgical History COLONOSCOPY 2010 Surgical History LEFT KNEE SURGERY Surgical History WISDOM TEETH Surgical History D&C Hospitalization History SEE ABOVE Hospitalization History [facility] Other History general Narrative - Reported* Type Description Date Medical History CKD STAGE 3 Medical History GERD Medical History DEPRESSION Medical History BIPOLAR AFFECTIVE DISORDER Medical History POSTMENOPAUSAL STATUS Medical History RIGHT LOWER QUADRANT ABDOMINAL M ASS Medical History SYNCOPE AND COLLAPSE Surgical History TOTAL LAP HYSTO, BSO LYSIS OF ADHESIONS, EXCISION OF 11CM PELVIC MASS CYSTOSCOPY Surgical History TONSILS AND ADNOIDS Surgical History RIGHT ROTATOR CUFF REPAIR Surgical History COLONOSCOPY 2010 Surgical History LEFT KNEE SURGERY Surgical History WISDOM TEETH Surgical History D&C Surgical History COLONOSCOPY 09/2021 Hospitalization History SEE ABOVE Hospitalization History [facility] Other History general Narrative - Reported* Type Description Date Medical History CKD STAGE 3 Medical History GERD Medical History DEPRESSION Medical History BIPOLAR AFFECTIVE DISORDER Medical History POSTMENOPAUSAL STATUS Medical History RIGHT LOWER QUADRANT ABDOMINAL M ASS Surgical History TOTAL LAP HYSTO, BSO LYSIS OF ADHESIONS, EXCISION OF 11CM PELVIC MASS CYSTOSCOPY Surgical History TONSILS AND ADNOIDS Surgical History RIGHT ROTATOR CUFF REPAIR Surgical History COLONOSCOPY 2010 Surgical History LEFT KNEE SURGERY Surgical History WISDOM TEETH Surgical History D&C Surgical History COLONOSCOPY 09/2021 Hospitalization History SEE ABOVE Hospitalization History Just Between [facility] Other Summary Purpose Family History No Family History Records FoundNo Family History Records FoundNo Family History Records FoundNo Family History Records FoundNo Family History Records FoundNo Family History Records Found Advance Directives Documents on File Type Date 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 Advance Directives and Living Will Advance Directive Response Recorded Date/ Time Advance Directives No May 12, 2021 7:39am Assessments Diagnosis KALEN (Generalized Anxiety Disorder)- Primary Generalized anxiety disorder Diagnosis Bipolar 1 disorder, manic, mild (HCC)- Primary KAELN (Generalized Anxiety Disorder) Generalized anxiety disorder Long-term use of high-risk medication History of Present Illness * Juan Summers MD - 08/22/2020 2:56 PM EDT Telephone Visit Via Phone Call [facility] [phone] Telephone Visit [facility] 08/22/2020 Juan Summers MD Provider Location: [facility] Patient Location Commercial Assistant: None Patient Location: Patient's Home Patient: Nola Bautista Date of : 1960 (59 y.o. female) PCP: Santa Augustin MD I discussed risks, benefits and alternatives of a telephone visit telemedicine consultation with the patient (and any accompanying persons) including the risks that the patient's personal health details and medical records will be discussed over real-time, synchronous, interactive audio technology,the visit will not be recorded without the express consent of both the provider and the patient, and that there are inherent diagnostic limitations compared to [id number] evaluations. We elected toproceed with the telephone visit telemedicine consultation. Spouse is present. Audio quality was fair. Patient was able to engage well HPI Patient is a 59-year-old white female who has been under my care for the last 8 years [facility]. Patient wants to continue her psychiatric management under my supervision at my new location with [facility]. Patient's working diagnosis is bipolar disorder type I, and generalized anxiety disorder. Patient has been well maintained on her current medications for the last 1 year. Since last visit patient reports no decline in her moods. Continues to maintain and have baseline mood stability. She reports no ongoing manic mood symptoms, denies any pervasive irritability or elevated moods. Patient does not report any flight of ideas or racing thoughts. Speech was within normallimits. She did not report any increased dizziness or increased psychomotor agitation or increased goal-directed activities. Patient has no ongoing thought content or thought process abnormalities. Patient denies any ongoing perceptual disturbances. Denies any ongoing pervasive sadness or anhedonia. Reports fair energy and motivation. [facility]. Patient reports she has been getting adequate quality quantity of sleep. Denies any ongoing feelings of helplessness or hopelessness. Denies any ongoing morbid thoughts. Denies any suicidal ideation, intent or plan. Anxiety control has been fair. Reports minimal to no breakthrough anxiety. Spouse has no ongoing concerns to report and he feels patient is doing really well on her current regimen Interpersonal issues were discussed: Support was provided Please supportive/insight oriented counseling was provided Goals and objectives of treatment: Maintain mood stability Maintain good anxiety control Prevent psychosis Treatment compliance The following portions of the patient's history were reviewed and updated as appropriate: allergies, current medications, past family history, past medical history, past social history, past surgicalhistory and problem list. Review of Systems Constitutional: Negative. Respiratory: Negative. Cardiovascular: Negative. Gastrointestinal: Negative. Endocrine: Negative. Genitourinary: Negative. Patient's Medications New Prescriptions No medications on file Previous Medications No medications on file Modified Medications Modified Medication Previous Medication CLONAZEPAM (KLONOPIN) 1 MG TABLET clonazePAM (KLONOPIN) 1 MG tablet Take 1 (one) tablet (1 mg total) by mouth nightly . Take 1 (one) tablet (1 mg total) by mouth nightly . LITHIUM (ESKALITH) 450 MG CR TABLET lithium (ESKALITH) 450 MG CR tablet Take 2 (two) tablets (900 mg total) by mouth nightly . Take 900 mg by mouth nightly . Discontinued Medications No medications on file Assessment/Plan: Mental status examination: Patient was cooperative with the phone. Speech is normal tone and rate and volume. Patient denies any ongoing racing thoughts or distractibility. Mood was reported as' good'. Patient reports no ongoing racing thoughts or flight of ideas. Reports no ongoing psychomotor agitation. Denies any ongoing thought content or thought process abnormalities. Patient denies any ongoing perceptual disturbances. Attention concentration is fair. Memory is intact. Insight/judgment: Fair. Language/intellect: Average . Problem List Items Addressed This Visit Other Bipolar 1 disorder, manic, mild (HCC) - Primary Relevant Medications lithium (ESKALITH) 450 MG CR tablet Other Relevant Orders [place] Level Comprehensive Metabolic Panel TSH Urinalysis KALEN (Generalized Anxiety Disorder) Relevant Medications clonazePAM (KLONOPIN) 1 MG tablet Other Relevant Orders [place] Level Comprehensive Metabolic Panel TSH Urinalysis Other Visit Diagnoses Long-term use of high-risk medication Relevant Orders [place] Level Comprehensive Metabolic Panel TSH Urinalysis Global assessment of functionin-70 Treatment Plan: Pharmacological management: Alternative medication plans were discussed with the patient/guardian. All relevant side effects and potential adverse effects were discussed with the patient/guardian. Standard cautions and potential benefits were discussed. FDA label and OFF label uses of medications were discussed. Patient/Guardian consented to the start/continuation of the following: Continue lithium controlled release 450 mg 2 daily Continue Klonopin 1 mg daily at bedtime Continue Zyprexa Will monitor side effects and progress and adjust medications appropriately Crisis Intervention plan was discussed and agreed upon. Patient/Guardian will call 911 in case of emergency. Emergency contact information was provided to the patient/guardian. Laboratory and other tests: See orders. Psychotherapy: None Follow up as scheduled or return early if needed. School or community referral: None Treatment Goals and Objectives discussed. Other Referrals/Consults/Psychological Testing documented in this encounter Chief Complaint and Reason for Visit Chief Complaint mhp Reason for Visit Hallucinations UTI (urinary tract infection) Chief Complaint mhp Reason for Visit Hallucinations Schizophrenia UTI (urinary tract infection) Additional Source Comments INFORMATION SOURCE (unrecogn ized section and content) DATE CREATED AUTHOR 11/22/2017 [facility] DATE CREATED AUTHOR AUTHOR'S ORGANIZ ATION 04/05/2019 [facility] DATE CREATED AUTHOR AUTHOR'S ORGANIZ ATION 04/23/2020 [facility] DATE CREATED AUTHOR AUTHOR'S ORGANIZ ATION 03/28/2022 [facility] DATE CREATED AUTHOR AUTHOR'S ORGANIZ ATION 06/22/2022 [facility] DATE CREATED AUTHOR AUTHOR'S ORGANIZ ATION 08/06/2022 [facility] [place] [facility] Reason for Visit (unrecogniz ed section and content) wellness Reason Onset Date Comments Medication Refill 07/14/2020 Reason Comments New Patient/Bipolar/Anxiety Reason Comments Medication Management Reason Onset Date Comments Medication Refill 05/21/2021 Reason Onset Date Comments Medication Refill 08/21/2021 Reason Onset Date Comments Medication Refill 08/25/2021 Care Teams (unrecognized sec tion and content) All Terrain Vehicle Technician Relationship Specialty Start Date End Date Santa Augustin MD [address] [place] [address] PCP - General Family Medicine 07/09/20 [employer] Terrain Vehicle Technician Relationship Specialty Start Date End Date Santa Augustin MD [address] [place] [address] PCP - General Family Medicine 07/09/20 All Terrain Vehicle Technician Relationship Specialty Start Date End Date Santa Augustin MD [address] [place] [address] [place] [address] PCP - General Family Medicine 07/09/20 All Terrain Vehicle Technician Relationship Specialty Start Date End Date Santa Augustin MD [address] [place] [address] [place] [address] PCP - General Family Medicine 07/09/20 All Terrain Vehicle Technician Relationship Specialty Start Date End Date Santa Augustin MD [address] [place] [address] [place] [address] PCP - General Family Medicine 07/09/20 All Terrain Vehicle Technician Relationship Specialty Start Date End Date Santa Augustin MD [address] [facility] [address] [place] [address] [place] [address] PCP - General Family Medicine 07/09/20 All Terrain Vehicle Technician Relationship Specialty Start Date End Date Santa Augustin MD [address] [facility] [address] [place] [address] [place] [address] PCP - General Family Medicine 07/09/20 Team Status: Active Member Role Status Dates Santa Augustin MD Primary Care Provider Active Momo Hill DO Emergency Provider Active Marco A Zaman MD Admit Provider, Attending Provider Active Team Status: Active Member Role Status Dates Santa Augustin MD Primary Care Provider Active Team Status: Inactive Member Role Status Dates Santa Augustin MD Primary Care Provider Active Momo Hill DO Emergency Provider Active Marco A Zaman MD Admit Provider, Attending Provider Active All Terrain Vehicle Technician Relationship Specialty Start Date End Date Santa Augustin MD [address] [place] [address] [place] [address] PCP - General Family Medicine 07/09/20 All Terrain Vehicle Technician Relationship Specialty Start Date End Date Santa Augustin MD [address] [place] [address] [place] [address] PCP - General Family Medicine 07/09/20 All Terrain Vehicle Technician Relationship Specialty Start Date End Date Santa Augustin MD [facility] [place] [address] PCP - General Family Medicine 07/09/20 Goals (unrecognized section and content) Goals may be documented in a n alternate section FOR RECORDS PERTAINING TO PATIENTS WHO ARE OR HAVE BEEN ENROLLED IN A CHEMICAL DEPENDENCY/SUBSTANCEABUSE PROGRAM, SOME INFORMATION MAY BE OMITTED. This clinical summary was aggregated from multiple sources. Caution should be exercised in using it in the provision of clinical care. This summary normalizes information from multiple sources, and as a consequence, information in this document may materially change the coding, format and clinical context of patient data. In addition, data may be omitted in some cases. CLINICAL DECISIONS SHOULD BE BASED ON THE PRIMARY CLINICAL RECORDS. [employer] [facility]. provides no warranty or guarantee of the accuracy or completeness of information in this document.
[2023-08-29 16:32] LABS: Albumin Level 3.6 g/dL (3.4-5.0); Anion Gap 10.5; Calcium 9.6 mg/dL (8.5-10.1); Carbon Dioxide 28.7 mmol/L (21.0-32.0); Chloride 107 mmol/L (98-107); Estimated GFR (African America 47 (>=60); Estimated GFR (Non-African Ame 39 (>=60); Glucose 92 mg/dL (74-106); Phosphorus 4.1 mg/dL (2.6-4.7); Potassium 4.2 mmol/L (3.5-5.1); Sodium 142 mmol/L (136-145)
== END 2023-08-29 15:34 | disposition home or self-care (01) ==
LOC: LAB 15:33
PROVIDERS: PCP Family Medicine; Visit Provider Internal Medicine
DX: E21.3 Hyperparathyroidism, unspecified (principal); E55.9 Vitamin D deficiency, unspecified
CPT/HCPCS: 36415; 80069; 82306; 82310; 83970

== ENCOUNTER 2023-10-07 09:02 | Outpatient (OUT) | payer OTHER, SELFPAY | END 2023-10-07 09:03 | disposition home or self-care (01) | LOC: LAB 09:03 | PROVIDERS: PCP Family Medicine; Visit Provider Nurse Practitioner Family | DX: Z79.899 Other long term (current) drug therapy (principal) | CPT/HCPCS: 36415; 80178 ==

== ENCOUNTER 2023-10-14 08:31 | Outpatient (OUT) | payer OTHER, SELFPAY ==
--- NOTE | 2023-10-14 08:35 | MM_ITS ---
Patient Name: RAN BAUTISTA MR#: [id number] : 1960 Exam Date: 10/14/2023 Ordering Doctor: DR Roxane Tom M.D. RADIOLOGY REPORT PROCEDURE: MM SCREENING MAMMO BI COMPARISON: MG MAMM SCREEN TERRA W CAD, 04/08/2022. MG MAMM LT DIAG W CAD, 01/30/2020. MAMMO POST BIOPSY UNILATERAL LEFT, 06/28/2012. INDICATIONS: Screening Calculator Name NCI Breast Cancer Risk Assessment Tool 5 Year Breast Cancer Risk 2.60% Lifetime Breast Cancer Risk 10.90% Personal Breast Cancer No Personal Ovarian Cancer No Treatments None Family Cancers Aunt-maternal with breast cancer at age 75; Aunt-maternal with breast cancer at age 80; Aunt-maternal with breast cancer at age 70; Mother with colon cancer at age 56. LOCATION: [facility] BREAST COMPOSITION: There are scattered areas of fibroglandular density. FINDINGS: DIAGNOSTIC CATEGORY 2--BENIGN FINDING: RIGHT BREAST: No significant suspicious finding. No significant change has occurred. LEFT BREAST: No significant suspicious finding. Stable biopsy marker clip within upper-outer quadrant. Stable small axillary tail lymph node. No significant change has occurred. RECOMMENDATIONS: ROUTINE MAMMOGRAM AND CLINICAL EVALUATION IN 12 MONTHS. PLEASE NOTE: A NORMAL MAMMOGRAM DOES NOT EXCLUDE THE POSSIBILITY OF BREAST CANCER. A CLINICALLY SUSPICIOUS PALPABLE LUMP SHOULD BE BIOPSIED. Dictated by: Tim Velasquez M.D. on 10/14/2023 at 15:28 Approved by: Tim Velasquez M.D. on 10/14/2023 at 15:29
== END 2023-10-14 08:32 | disposition home or self-care (01) ==
LOC: MAMMO 08:31
PROVIDERS: PCP Family Medicine; Visit Provider Family Medicine
DX: Z12.31 Encounter for screening mammogram for malignant neoplasm of breast (principal); Z80.3 Family history of malignant neoplasm of breast; Z80.0 Family history of malignant neoplasm of digestive organs
CPT/HCPCS: 77067

== ENCOUNTER 2024-02-01 08:37 | Outpatient (OUT) | payer OTHER, SELFPAY ==
[2024-02-02 09:15] LABS: Lithium (Eskalith(R)), Serum 0.8 mmol/L (0.5-1.2)
== END 2024-02-01 08:38 | disposition home or self-care (01) ==
LOC: LAB 08:38
PROVIDERS: PCP Family Medicine; Visit Provider Psychiatry & Neurology Psychiatry
DX: F31.63 Bipolar disorder, current episode mixed, severe, without psychotic features (principal); Z79.899 Other long term (current) drug therapy
CPT/HCPCS: 36415; 80178

== ENCOUNTER 2024-03-24 07:49 | Outpatient (OUT) | payer OTHER, SELFPAY ==
--- OUTSIDE RECORDS SUMMARY | 2024-03-24 07:53 | XMS_ITS | CCD ---
Author Organization [facility] Care Team Providers Care Train Operator Name Role Phone SANTA AUGUSTIN Unavailable Unavailable CASSIDY, AHMED Unavailable Unavailable CASSIDY, AHMED Unavailable Unavailable MARY KATE MAST Unavailable Unavailable Santa Augustin Primary Care Provider Santa Augustin MD Primary Care Provider Santa Augustin MD Primary Care Provider Zachary Pascual Unavailable Geneva Naik Unavailable MD Santa Augustin Primary Care Provider DO [place] [facility] Provider [phone] MD Austyn Marco A Admit Provider MD Austyn Marco A Attending Provider [phone] Marco A Zaman Admitting Unavailable Santa Augustin Primary Care Unavailable Marco A Zaman Attending Unavailable Geneva Naik Attending Unavailable Geneva Naik Admitting Unavailable Cory Augustinia E Primary Care Unavailable Santa Augustin MD Primary Care Provider SANTA AUGUSTIN Primary Care Unavailable GEHLOT, UPENDER Attending Unavailable DEMETRIA, SANTA E Primary Care Unavailable GEHLOT, UPENDER [...] Unavailable GEHLOT, UPENDER Attending Unavailable ROSMERY MOON Unavailangel LAURENT ., DR DE OLIVEIRA Admitting Unavailable AUGUSTIN, DR SANTA Brown Primary Care Unavailable HAY ., DR DE OLIVEIRA Attending Unavailable MIR HENRY Consulting Unavailable AUGUSTIN, DR SANTA Brown Primary [...] Primary Care Unavailable GEHLOT, UPENDER Consulting Unavailable Santa Augustin Unavailable Santa Augustin MD Primary Care Provider Santa Augustin MD Primary Care Provider SANTA AUGUSTIN Primary Care Unavailable RYLIE GRIFFIN Attending Unavailable RADHA PENALOZA Attending Unavailable SANTA AUGUSTIN Referring Unavailable SANTA AUGUSTIN Primary Care Unavailable SANTA AUGUSTIN Referring Unavailable SANTA AUGUSTIN Primary Care Unavailable APLING, DIPAK Fried Referring Unavailable RUBY ASENCIO Attending Unavailable APLING, DIPAK Fried Referring Unavailable APLING, DIPAK Fried Attending Unavailable APLING, DIPAK Fried Referring Unavailable APLING, DIPAK Fried Attending Unavailable APLING, DIPAK Fried Referring Unavailable APLING, DIPAK Fried Attending Unavailable APLING, DIPAK Fried Referring Unavailable APLING, DIPAK Fried Attending Unavailable APLING, DIPAK Fried Attending Unavailable APLING, DIPAK Fried Attending Unavailable Allergies Allergy Classification Reported Allergen(s) Allergy Type Date of Onset Reaction(s) Facility (18 sources) chlorproMAZINE; Translations: [CHLORPROMAZINE] Drug Allergy 5 muscle cramps [facility] (18 sources) Trifluoperazine; Translations: [TRIFLUOPERAZINE] Drug Allergy 0 muscle cramps, Other (See Comments) [facility] (1 source) chlorproMAZINE Drug Allergy 5 [facility] Repository Medications Current Medications Medication Drug Class(es) Dates Sig (Normalized) Sig (Original) amLODIPine 5 mg oral tablet (1 source) Dihydropyridine Calcium [place] Start: 11-23-2017 take 1 tablet by mouth once daily amLODIPine (NORVASC) 5 MG tablet Take 1 tablet by mouth daily 14 tablet 0 11/23/2017 Active cephalexin 500 mg oral capsule (1 source) Cephalosporin Antibacterial Start: 03-11-2022 take 500 mg by mouth every six hours Cephalexin Active 500 MG PO Q6H 40 10 March 11, 2022 12:00am clonazePAM 1 mg oral tablet (20 sources) Benzodiazepine Start: 09-14-2019 End: 09-19-2022 take 1 mg by mouth once daily at bedtime Clonazepam Active 1 MG PO Daily at bedtime March 11, 2022 12:00am Cobalamin Combinations (NEURIVA PLUS PO) (1 source) Cobalamin Combinations (NEURIVA PLUS PO) Take by mouth 0 Active Coffee Xt-Phosphatidyl Serine (Neuriva Original) 100-100 mg capsule (1 source) Start: 09-19-2023 take 1 capsule by mouth once daily Coffee Xt-Phosphatidyl Serine (Neuriva Original) 100-100 mg capsule Active 1 CAP PO daily September 19, 2023 12:00am docusate sodium 100 mg oral capsule (13 sources) Start: 09-19-2023 take 100 mg by mouth twice daily Docusate Sodium Active 100 MG PO Twice daily September 19, 2023 12:00am Start: 08-19-2019 End: 09-05-2023 take 1 capsule by mouth twice daily docusate sodium (COLACE) 100 mg capsule Take 1 capsule (100 mg total) by mouth 2 (two) times a day. 10 capsule 0 08/19/2019 09/05/2023 Discontinued (Patient Stopped On Own) take 1 capsule by [facility] once daily as needed docusate (COLACE, DULCOLAX) 100 MG CAPS 1 capsule as needed Orally Once a day 0 Active lithium carbonate 300 mg extended release oral tablet (20 sources) Start: 09-19-2023 take 600 mg by mouth once daily at bedtime [place] Carbonate Active 600 MG PO Daily at bedtime September 19, 2023 12:00am Start: 05-18-2022 End: 06-21-2022 take 3 tablets [...] . 180 tablet 1 08/22/2020 Active take 1 capsule by mo uth once daily lithium 600 MG capsule Take 1 capsule by mouth nightly 0 Active take 2 tablets by mo uth every twenty-four hours [place] Carbonate ER 300 MG 2 tab(s) Orally Once a day Active MegaRed [place]-3 Krill Oil 50 0 MG (10 sources) MegaRed [place]-3 Krill Oil 500 MG as directed Orally ONCE A DAY Active mirtazapine 15 mg oral tablet (1 source) Start: 11-22-2017 take 1 tablet by mouth once daily mirtazapine (REMERON) 15 MG tablet Take 1 tablet by mouth nightly 14 tablet 0 11/22/2017 Active Neuriva - (10 sources) Neuriva - as dir ected Orally Active OLANZapine 15 mg oral tablet (20 sources) Atypical Antipsychotic Start: 09-19-2023 take 1 tablet by mouth once daily Olanzapine (Zyprexa) 15 mg tablet Active 15 MG PO Daily September 19, 2023 12:00am Start: 05-18-2022 OLANZapine (Zy PREXA) 10 MG tablet 1/2 tab daily HS [...] 01/18/2022 02/12/2022 Discontinued (Reorder) Start: 10-17-2020 End: 09-14-2021 take 1 tablet by mouth once daily OLANZapine (ZYPREXA) 10 MG tablet Take 1 (one) tablet (10 mg total) by mouth nightly . 90 tablet 1 09/14/2021 Active [place] 1-Owx-Vkj-Fish Oil-Krill (Megared Advanced 4-In-1) 339 mg-314 mg- 500 mg capsule (1 source) Start: 09-19-2023 [place] 1-Tpo-Duw-Fish Oil-Krill (Megared Advanced 4-In-1) 339 mg-314 mg- 500 mg capsule Active 1 CAP PO 1 to 2 times per day September 19, 2023 12:00am 24 hr paliperidone 6 mg extended release oral tablet (15 sources) Atypical Antipsychotic Start: 05-18-2022 End: 06-21-2022 [...] SUSTENNA) injection 156 mg Start: 03-23-2022 End: 09-19-2023 take 9 mg by mouth once daily Paliperidone Discontinue d 9 MG PO Daily 30 March 23, 2022 12:00am September 19, 2023 4:38pm Start: 03-23-2022 End: 09-19-2023 inject 156 mg by intramuscular injection every 30 days Paliperidone Palmitate (Invega Sustenna) 156 mg/mL syringe Discontinued 156 MG IM Q30D March 23, 2022 12:00am September 19, 2023 4:38pm Start: 12-18-2017 inject 156 mg by int ramuscular injection every 30 days paliperidone palmitate (INVEGA SUSTENNA) 78 MG/0.5ML SUSP IM injection Inject 156 mg into the muscle every 30 days Last dose given 11/18/17 156 mg 0 12/18/2017 Active polyethylene glycol 3350 [id number] mg powder for oral solution (1 source) Osmotic Laxative Start: 08-19-2019 take 17 g by mouth in the morning PURELAX 17 gram/dose powder Take 17 g by mouth in the morning. 0 08/19/2019 Active traZODone hydrochloride 50 mg oral tablet (1 source) Serotonin Reuptake Inhibitor Start: 11-22-2017 take 1 tablet by mouth once daily as needed for sleep traZODone (DESYREL) 50 MG tablet Take 1 tablet by mouth nightly as needed for Sleep 14 tablet 0 11/22/2017 Active UNABLE TO FIND (1 source) take 2 tablets by mouth in the morning UNABLE TO FIND Take 2 tablets by mouth in the morning. Lluvia- Promotes regularity, bloating, and gas relief- dietary supplement. 0 Active 24 hr divalproex sodium 500 mg extended release oral tablet (1 source) Mood Stabilizer, Anti-epileptic Agent Start: 11-22-2017 take 1 tablet by mouth twice daily divalproex (DEPAKOTE ER) 500 MG extended release tablet Take 1 tablet by mouth 2 times daily 28 tablet 0 11/22/2017 Active Completed/Discontinued Medications Medication Drug Class(es) Dates Sig (Normalized) Sig (Original) acetaminophen 325 mg / oxyCODONE hydrochloride 5 mg oral tablet (2 sources) Opioid Agonist Start: 10-08-2023 End: 10-08-2023 oxyCODONE-acetamin ophen (PERCOCET) 5-325 MG per tablet 1 tablet Start: 10-08-2023 End: 10-11-2023 oxyCODONE-acetaminophen (PER COCET) 5-325 MG per tablet Indications: Closed fracture of right wrist, initial encounter Take 1 tablet by mouth every 6 hours as needed for Pain for up to 3 days. Intended supply: 3 days. Take lowest dose possible to manage pain Max Daily Amount: 4 tablets 12 tablet 0 10/08/2023 10/11/2023 Active Knee Brace - (5 sources) Start: 05-06-2021 Knee Brace - a s directed closed fracture left patella May, Not-Taking Start: 05-06-2021 Start: 05-06-2021 Knee Brace - a s directed closed fracture left patella May, Active OXcarbazepine 300 mg oral tablet (7 sources) Anti-epileptic Agent Start: 03-23-2022 End: 09-19-2023 take 300 mg by mouth twice daily Oxcarbazepine Discontinued 300 MG PO Twice daily 60 30 March 23, 2022 12:00am September 19, 2023 4:37pm Problems Active Problems Problem Classification Problem Date [...] Translations: [Anemia in chronic kidney disease] Chronic Essential hypertension (1 source) Benign essential hypertension; Translations: [Essential (primary) hypertension] 11-22-2017 Chronic Fracture of upper limb (2 sources) Closed fracture of right wrist; Translations: [Fracture of unspecified carpal bone, right wrist, initial encounter for closed fracture] Onset: 4 10-08-2023 Episodic Nausea and vomiting (1 source) Nausea and vomiting; Translations: [Nausea with vomiting, unspecified] Episodic Noninfectious gastroenteritis (1 source) Noninfective gastroenteritis and colitis, unspecified Episodic Other aftercare (2 sources) H/O: high risk medication; 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] Episodic Other aftercare (12 sources) Other prison (current) drug therapy; Translations: [Long-term (current) use of other medications] Onset: 1 Resolved: 1 Episodic Other aftercare (1 source) On lithium; 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] 09-19-2023 Episodic Other circulatory disease (1 source) Elevated blood-pressure reading without diagnosis of hypertension; Translations: [Elevated blood-pressure reading, without diagnosis of hypertension] Episodic Other diseases of kidney and ureters (8 sources) Secondary hyperparathyroidism; Translations: [Secondary hyperparathyroidism of renal origin] Chronic Other diseases of kidney and ureters (2 sources) Secondary hyperparathyroidism of renal origin; Translations: [SEC HYPERPARATHYROIDISM RENAL ORIGN] Onset: 2 Chronic Other endocrine disorders (5 sources) Hyperparathyroidism; Translations: [Hyperparathyroidism, unspecified] 09-19-2023 Chronic Other endocrine disorders (3 sources) Hyperparathyroidism, unspecified; Translations: [Hyperparathyroidism, unspecified] Chronic Other gastrointestinal disorders (2 sources) Constipation; Translations: [Constipation, unspecified] Onset: 5 Episodic Other gastrointestinal disorders (1 source) Swollen abdomen; Translations: [Right lower quadrant abdominal swelling, mass and lump] Episodic Other gastrointestinal disorders (1 source) Chronic constipation; Translations: [Other constipation] 09-05-2023 Episodic Other gastrointestinal disorders (1 source) Other constipation; Translations: [Other constipation] Onset: 4 Episodic Other nutritional; endocrine; and metabolic disorders (11 sources) Hypercalcemia; Translations: [Hypercalcemia] 09-19-2023 Chronic Other nutritional; endocrine; and metabolic disorders (10 sources) Hypermagnesemia; Translations: [Hypermagnesemia] Chronic Other nutritional; endocrine; and metabolic disorders (5 sources) Hypercalcemia; Translations: [Hypercalcemia] Onset: 1 Resolved: 1 Chronic Other nutritional; [...] [Pneumonia, unspecified organism] Episodic Residual codes; unclassified (3 sources) Hallucinations; Translations: [Hallucinations, unspecified] 03-11-2022 Episodic Residual codes; unclassified (2 sources) Hallucinations, unspecified; Translations: [Hallucinations] 03-11-2022 Episodic Residual codes; unclassified (1 source) Postmenopausal state; Translations: [Asymptomatic menopausal state] Episodic Residual codes; unclassified (1 source) Pain, unspecified; Translations: [Pain, unspecified] Onset: 4 Episodic Schizophrenia and other psychotic disorders (8 sources) 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 substance or known physiological condition; Translations: [Schizophrenia] Onset: 8 Resolved: 8 03-12-2022 Chronic Syncope (1 source) Syncope and collapse; Translations: [Syncope and collapse] Episodic Unclassified (1 source) H/O: high risk medication; Translations: [Long-term use of high-risk medication] Unclassified (1 source) M25.562 - Pain in left knee; Translations: [M25.562 - Pain in left knee] Onset: 1 Urinary tract infections (5 sources) Urinary tract infectious disease; Translations: [Urinary [...] kidney disease, stage 3b] Onset: 04-01-2021 Resolved: 10-27-2021 E Codes: Fall (1 source) Fall (on) [...] Fatigue; Translations: [Other fatigue] Onset: 04-19-2018 Episodic Mood disorders (20 sources) Mild manic bipolar I disorder; Translations: [Bipolar disorder, current episode manic without psychotic features, mild] Onset: 02-09-2013 Resolved: 10-28-2017 08-22-2020 Chronic Nonspecific chest pain (1 source) Chest pain; Translations: [Other chest pain] Onset: 12-25-2014 Episodic Other gastrointestinal disorders (1 source) Pelvic mass; Translations: [Intra-abdominal and pelvic swelling, mass and lump, unspecified site] Onset: 08-18-2019 Resolved: 11-22-2019 11-22-2019 Episodic Other nervous system disorders (1 source) Postoperative pain ; Translations: [Other acute postprocedural pain] Onset: 10-09-2019 Resolved: 10-18-2019 10-18-2019 Episodic Other non-traumatic joint disorders (1 source) [...] unspecified] Onset: 03-11-2014 Episodic Residual codes; unclassified (15 sources) History of total hysterectomy with bilateral salpingo-oophorectom y; Translations: [Acquired absence of both cervix and [...] Test Name Value Interpretation Reference Range Facility XR WRIST RIGHT (MIN 3 VIEWS) on 10-08-2023 XR WRIST RIGHT (MIN 3 VIEWS) EXAMINATION: XRAY VIEWS OF THE RIGHT WRIST 10/08/2023 4:01 pm COMPARISON: None. HISTORY: ORDERING SYSTEM PROVIDED HISTORY: fall, injury, pain swelling distal radius region TECHNOLOGIST PROVIDED HISTORY: fall, injury, pain swelling distal radius region Reason for Exam: Right wrist pain after falling FINDINGS: Nondisplaced fracture of the distal radius. Fracture of the ulna styloid.. There is no evidence of dislocation. . The joint spaces appear well maintained. Soft tissue swelling. IMPRESSION: Nondisplaced fracture of the distal radius. Fracture of the ulna styloid. Interpreted by: Channing Jasso MD Signed by: Channing Jasso MD 10/08/23 Final result Normal [facility] XR Wrist - right 3 Viewson 0 10-08-2023 Nondisplaced fractur e of the distal radius. Fracture of the ulna styloid. [facility] RIS CONSOLIDATED EXAMINATION: XRAY VIEWS OF THE RIGHT WRIST 10/08/2023 4:01 pm COMPARISON: None. HISTORY: ORDERING SYSTEM PROVIDED HISTORY: fall, injury, pain swelling distal radius region TECHNOLOGIST PROVIDED HISTORY: fall, injury, pain swelling distal radius region Reason for Exam: Right wrist pain after falling FINDINGS: Nondisplaced fracture of the distal radius. Fracture of the ulna styloid.. There is no evidence of dislocation. . The joint spaces appear well maintained. Soft tissue swelling. [facility] RIS CONSOLIDATED Channing Jasso MD - 10/08/2023 EXAMINATION: XRAY VIEWS OF THE RIGHT WRIST 10/08/2023 4:01 pm COMPARISON: None. HISTORY: ORDERING SYSTEM PROVIDED HISTORY: fall, injury, pain swelling distal radius region TECHNOLOGIST PROVIDED HISTORY: fall, injury, pain swelling distal radius region Reason for Exam: Right wrist pain after falling FINDINGS: Nondisplaced fracture of the distal radius. Fracture of the ulna styloid.. There is no evidence of dislocation. . The joint spaces appear well maintained. Soft tissue swelling. IMPRESSION: Nondisplaced fracture of the distal radius. Fracture of the ulna styloid. [facility] Radiology Study observation (narrative) [facility] W[facility] - right 3 ViewsOrde red By: Channing Jasso on 10-08-2023 [facility] Work Phone: Estimated glomerular filtrat ion rate (GFR) non- Americanon 08-29-2023 GFR/1.73 sq M.predicted among non-blacks MDRD (S/P/Bld) [Vol rate/Area] 39 mL/min/{1.73_m2} >=60 [facility] Laboratory - Chemistry and C hemistry - challengeon 08-29-2023 Albumin [Mass/Vol] 3.6 g/dL 3.4-5.0 [facility] Calcium [Mass/Vol] 9.6 mg/dL 8.5-10.1 [facility] Chloride [Moles/Vol] 107 mmol/L 98-107 [facility] CO2 [Moles/Vol] 28.7 mmol/L 21.0-32.0 [facility] Creatinine [Mass/Vol] 1.37 mg/dL 0.55-1.02 [facility] GFR/1.73 sq M.predicted MDRD (S/P/Bld) [Vol rate/Area] 47 mL/min/{1.73_m2} >=60 [facility] Glucose [Mass/Vol] 92 mg/dL 74-106 [facility] Potassium [Moles/Vol] 4.2 mmol/L 3.5-5.1 [facility] Sodium [Moles/Vol] 142 mmol/L 136-145 [facility] Urea nitrogen [Mass/Vol] 26.0 mg/dL 7.0-18.0 [facility] Urea nitrogen/Creatinine [Mass ratio] 19.0 mg/mg [facility] No Panel Informationon 08-28 25-Hydroxy Vitamin D Total 32.2 ng/mL [facility] Comment on above: <20 ng/mL Vit D defi cient20-<30 ng/mL Vit D [id number] ng/mL Vit D sufficient>100 ng/mL Potential Toxicity Miscellaneous Test COMMENT . [facility] Comment on above: Test Ordered: [id number] Ca+PTH IntactCalcium 10.0 mg/dL CB Reference Range: 8.7-10.3PTH, Intact 62 pg/mL CB Reference Range: 15-65Intact PTH Comment CB Reference Range: .Interpretation Intact PTH Calcium (pg/mL) (mg/dL)Normal 15 - 65 8.6 - 10.2Primary Hyperparathyroidism >65 >10.2Secondary Hyperparathyroidism >65 <10.2Non-Parathyroid Hypercalcemia <65 >10.2Hypoparathyroidism <15 < 8.6Non-Parathyroid Hypocalcemia 15 - 65 < 8.6Performed at: - [facility] [address] [id number] Director: Giovany Akbar PhD, Phone: [phone] Phosphorus Level 4.1 mg/dL 2.6-4.7 [facility] Serum or plasma anion gap de terminationon 08-29-2023 Anion gap [Moles/Vol] 10.5 mmol/L [facility] LITHIUMon 05-27-2022 [place] (Eskalith(R)), Serum 1.2 mmol/L Normal 0.5-1.2 [facility] Comment on above: Result Comment: A co ncentration of 0.5-0.8 mmol/L is advised for long-term use; concentrations of up to 1.2 mmol/L may be necessary during acute treatment. Detection Limit = 0.1 <0.1 indicates None Detected Performed By: #### L ITHIUM #### [facility] [address] [place] [id number] [address] Emanuel Degroot RENAL FUNCTION PANELon 05-08 Albumin [Mass/Vol] 3.7 g/dL Normal 3.4-5.0 [facility] Comment on above: Performed By: #### R ENAL #### [facility] [address] [address] [address] Emanuel Degroot Calcium [Mass/Vol] 9.5 mg/dL Normal 8.5-10.1 [facility] Comment on above: Performed By: #### R ENAL #### [facility] [address] [place] [address] Dr. Emanuel Degroot Chloride [Moles/Vol] 106 mmol/L Normal 98-107 [facility] Comment on above: Performed By: #### R ENAL #### [facility] [address] [address] [address] Emanuel Degroot CO2 [Moles/Vol] 29.2 mmol/L Normal 21.0-32.0 [facility] Comment on above: Performed By: #### R ENAL #### [facility] [address] [place] [address] Dr. Emanuel Degroot Creatinine [Mass/Vol] 1.30 mg/dL Critically high 0.55-1.02 [facility] Comment on above: Performed By: #### R ENAL #### [facility] [address] [place] [address] Dr. Emanuel Degroot EGFR-AF NAMIBIAN 50 mL/min/1.73m2 Critically low >=60 [facility] Comment on above: Performed By: #### R ENAL #### [facility] [address] [place] [address] Dr. Emanuel Degroot EGFR-NON AF NAMIBIAN 42 mL/min/1.73m2 Critically low >=60 [facility] Comment on above: Performed By: #### R ENAL #### [facility] [address] [place] [address] Dr. Emanuel Degroot Glucose [Mass/Vol] 96 mg/dL Normal 74-106 [facility] Comment on above: Performed By: #### R ENAL #### [facility] [address] [address] [address] Emanuel Degroot Phosphate [Mass/Vol] 4.1 mg/dL Normal 2.6-4.7 [facility] Comment on above: Performed By: #### R ENAL #### [facility] [address] [address] [address] Emanuel Degroot Potassium [Moles/Vol] 4.0 mmol/L Normal 3.5-5.1 [facility] Comment on above: Performed By: #### R ENAL #### [facility] [address] [address] [address] Emanuel Degroot Sodium [Moles/Vol] 140 mmol/L Normal 136-145 [facility] Comment on above: Performed By: #### R ENAL #### [facility] [address] [address] [address] Emanuel Degroot Urea nitrogen [Mass/Vol] 18.0 mg/dL Normal 7.0-18.0 [facility] Comment on above: Performed By: #### R ENAL #### [facility] [address] [place] [address] Dr. Emanuel Degroot MG MAMM SCREEN TERRA W CADon 1 06-08-2021 MG MAMM SCREEN TERRA W CAD Patient: NOLA WALLER Exam Date: 04/08/2022 : 1960 Gender:F Ordering : DR SANTA AUGUSTIN M.D. Admission #: [id number] Family : Order #: [id number] CLICK HERE TO VIEW EXAM RADIOLOGY REPORT [...] colon cancer at age 55. LOCATION: [facility] BREAST COMPOSITION: Scattered areas fibroglandular density. FINDINGS: [...] LUMP SHOULD BE BIOPSIED. Dictated by: Denton Delgado MD on 04/08/2022 at 13:39 Approved by: Denton Delgado MD on 04/08/2022 at 13:40 Normal [facility] US EXT NON VASC LIMITED RTon [...] considered less likely Electronically authenticated by: DENTON DELGADO Date: 2022-04-08 18:20 Normal [facility] Albumin [Mass/volume] in Ser um or PlasmaOrdered By: Horacio Kim on 03-19-2022 Albumin [Mass/Vol] 3.3 g/dL 3.2-5.5 [facility] Comprehensive Metabolic Pane sanjeev 03-19-2022 Albumin [Mass/Vol] 3.3 g/dL Normal 3.2-5.5 [facility] Comment on above: Performed By: #### C MP #### [facility] [address] [place] [address] [place] Albumin/Globulin [Mass ratio] 1.3 {ratio} Normal [facility] Comment on above: Performed By: #### C MP #### [facility] [address] [place] [address] [place] ALP [Catalytic activity/Vol] 38 U/L Normal 32-92 [facility] Comment on above: Performed By: #### C MP #### [facility] [address] [place] [address] [place] ALT [Catalytic activity/Vol] 22 U/L Normal 10-60 [facility] Comment on above: Performed By: #### C MP #### [facility] [address] Anion gap [Moles/Vol] 9.6 mmol/L Normal 6.0-15.0 [facility] Comment on above: Performed By: #### C MP #### [facility] [address] AST [Catalytic activity/Vol] 19 U/L Normal 10-42 [facility] Comment on above: Performed By: #### C MP #### [facility] [address] Bilirubin [Mass/Vol] 0.5 mg/dL Normal 0.3-1.2 [facility] Comment on above: Performed By: #### C MP #### [address] Calcium [Mass/Vol] 9.6 mg/dL Normal 8.2-10.2 [facility] Comment on above: Performed By: #### C MP #### [address] Chloride [Moles/Vol] 110 mmol/L Normal 95-114 [facility] [facility] Comment on above: Performed By: #### C MP #### [address] CO2 [Moles/Vol] 26.6 mmol/L Normal 22.0-30.0 [facility] Comment on above: Performed By: #### C MP #### [facility] [address] [place] [address] Creatinine [Mass/Vol] 1.26 mg/dL High 0.44-1.03 [facility] Comment on above: Performed By: #### C MP #### [address] Creatinine Clr Calc Pharmacy 44.02 Normal [facility] Comment on above: Result Comment: PERF ORMED BY: [place] [address] PATHOLOGIST ACQUISITIONS ASSISTANT KRISTI TURNER M.D. Performed By: #### C MP #### [facility] [address] [id number] [place] Estimated GFR ( Katrina [address] [facility] Comment on above: Result Comment: GFR estimated reference range: According to KDOQI guidelines, <60 ml/min/1.73m2 is sufficient to diagnose a patient with chronic kidney disease. Performed By: #### C MP #### [facility] [address] [place] [address] [place] Estimated GFR (Non- Am [address] [facility] Comment on above: Performed By: #### C MP #### [facility] [address] Globulin (S) [Mass/Vol] 2.6 g/dL [facility] Comment on above: Performed By: #### C MP #### [address] Glucose [Mass/Vol] 95 mg/dL Normal 70-100 [facility] Comment on above: Result Comment: [place] Glucose Reference Range is dependent on time and content of last meal. Glucose of more than 200 mg/dL in a nonstressed, ambulatory subject supports the diagnosis of Diabetes Mellitus. ADA recommended reference range Performed By: #### C MP #### [address] Potassium [Moles/Vol] 4.2 mmol/L Normal 3.5-5.1 [facility] Comment on above: Performed By: #### C MP #### [facility] [address] [place] [address] [place] Protein [Mass/Vol] 5.9 g/dL Low 6.1-7.9 [facility] Comment on above: Performed By: #### C MP #### [place] [address] [place] Sodium [Moles/Vol] 142 mmol/L Normal 136-146 [facility] Comment on above: Performed By: #### C MP #### [place] [address] [place] Urea nitrogen [Mass/Vol] 28 mg/dL High 9-23 [facility] Comment on above: Performed By: #### C MP #### [facility] [address] Creatinine and Glomerular fi ltration rate.predicted panel (S/P/Bld)Ordered By: Horacio Kim on 03-19-2022 Creatinine [Mass/Vol] 1.26 mg/dL 0.44-1.03 [facility] Estimated glomerular filtrat ion rate (GFR) non- AmericanOrdered By: Horacio Kim on 03-19-2022 GFR/1.73 sq M.predicted among non-blacks MDRD (S/P/Bld) [Vol rate/Area] 43 mL/Min [facility] Globulin Calc (S) [Mass/Vol] Ordered By: Horacio Kim on 03-19-2022 Globulin (S) [Mass/Vol] 2.6 g/dL [facility] No Panel InformationOrdered By: Horacio Kim on 03-19-2022 Estimated GFR () 52 mL/Min [facility] Comment on above: GFR estimated refere nce range: According to KDOQI guidelines, <60 ml/min/1.73m2 is sufficient to diagnose a patient with chronic kidney disease. Pharmacy Creatinine Clearance (Chem 44.02 [facility] Protein [Mass/volume] in Ser um or PlasmaOrdered By: Horacio Kim on 03-19-2022 Protein [Mass/Vol] 5.9 g/dL 6.1-7.9 [facility] Serum or plasma alanine arora otransferase measurement without P-5'-P (enzymatic activiOrdered By: Horacio Kim on 03-19-2022 ALT No additional P-5'-P [Catalytic activity/Vol] 22 U/L [facility] Serum or plasma albumin/glob ulin mass ratioOrdered By: Horacio Kim on 03-19-2022 Albumin/Globulin [Mass ratio] 1.3 {ratio} [facility] Serum or plasma alkaline lashaun sphatase measurement (enzymatic activity/volume)Ordered By: Horacio Kim on 03-19-2022 ALP [Catalytic activity/Vol] 38 U/L 32-92 [facility] Serum or plasma anion gap de terminationOrdered By: Horacio Kim on 03-19-2022 Anion gap [Moles/Vol] 9.6 mmol/L 6.0-15.0 [facility] Serum or plasma aspartate am inotransferase measurement (enzymatic activity/volume)Ordered By: Horacio Kim on 03-19-2022 AST [Catalytic activity/Vol] 19 U/L 10-42 [facility] Serum or plasma calcium sunil urement (mass/volume)Ordered By: Horacio Kim on 03-19-2022 Calcium [Mass/Vol] 9.6 mg/dL 8.2-10.2 [facility] Serum or plasma chloride leo surement (moles/volume)Ordered By: Horacio Kim on 03-19-2022 Chloride [Moles/Vol] 110 mmol/L 95-114 [facility] Serum or plasma glucose sunil urement (mass/volume)Ordered By: Horacio Kim on 03-19-2022 Glucose [Mass/Vol] 95 mg/dL 70-100 [facility] Comment on above: ADA recommended refe rence rangeRandom Glucose Reference Range is dependent on time and content of last meal. Glucose of more than 200 mg/dL in a nonstressed, ambulatory subject supports the diagnosis of Diabetes Mellitus. Serum or plasma potassium me asurement (moles/volume)Ordered By: Horacio Kim on 03-19-2022 Potassium [Moles/Vol] 4.2 mmol/L 3.5-5.1 [facility] Serum or plasma sodium measu rement (moles/volume)Ordered By: Horacio Kim on 03-19-2022 Sodium [Moles/Vol] 142 mmol/L 136-146 [facility] Serum or plasma total biliru bin measurement (mass/volume)Ordered By: Horacio Kim on 03-19-2022 Bilirubin [Mass/Vol] 0.5 mg/dL 0.3-1.2 [facility] Serum or plasma total carbon dioxide measurement (moles/volume)Ordered By: Horacio Kim on 03-19-2022 CO2 [Moles/Vol] 26.6 mmol/L 22.0-30.0 [facility] Serum or plasma urea nitroge n measurement (mass/volume)Ordered By: Horacio Kim on 03-19-2022 Urea nitrogen [Mass/Vol] 28 mg/dL 02-26 [facility] Urine culture routineOrdered By: Ruby Penn on 03-13-2022 Bacteria identified Cx Nom (U) 2 Days [facility] Glucose Glucometer (BldC) [M ass/Vol]Ordered By: Marco A Zaman on 03-12-2022 Glucose [Mass/Vol] 120 mg/dL [facility] Comment on above: Random Glucose Refer ence Range is dependent on time and content of last meal. Glucose of more than 200 mg/dL in a nonstressed, ambulatory subject supports the diagnosis of Diabetes Mellitus. Glucose Poct Glucometerson 1 Commemt1 Normal [facility] Comment on above: Result Comment: Glu2 : Procedure Error PERFORMED BY: [place] [address] PATHOLOGIST ACQUISITIONS ASSISTANT KRISTI TURNER M.D. Performed By: #### L IPID, TSH3 wRFLX, [id number] #### [facility] [address] [place] [address] Glucose [Mass/Vol] 120 mg/dL Normal [facility] Comment on above: Result Comment: Purchase om Glucose Reference Range is dependent on time and content of last meal. Glucose of more than 200 mg/dL in a nonstressed, ambulatory subject supports the diagnosis of Diabetes Mellitus. Performed By: #### L IPID, TSH3 wRFLX, [id number] #### [facility] [address] [place] [address] Amphetamine Screen Ql (U)Ord ered By: Ruby Penn on 03-11-2022 Amphetamines Ql (U) Negative Negative [facility] Automated erythrocytes count in urine sediment (number/area)Ordered By: Ruby Penn on 03-11-2022 RBC Auto (Urine sed) [#/Area] None seen [HPF] 0-4 [facility] Automated leukocytes count i n urine sediment (number/area)Ordered By: Ruby Penn on 03-11-2022 WBC Auto (Urine sed) [#/Area] 10-19 [HPF] 0-4 [facility] Barbiturates [Presence] in U rineOrdered By: Ruby Penn on 03-11-2022 Barbiturates Ql (U) Negative Negative [facility] Basophils Auto (Bld) [#/Vol] Ordered By: Ruby Penn on 03-11-2022 Basophils (Bld) [#/Vol] 0.1 10*3/uL 0.0-0.2 [facility] Basophils/100 WBC Auto (Bld) Ordered By: Ruby Penn on 03-11-2022 Basophils/100 WBC (Bld) 0.8 % . [facility] Benzodiazepines [Presence] i n UrineOrdered By: Ruby Penn on 03-11-2022 Benzodiazepines Ql (U) Negative Negative [facility] Bilirubin Test strip Ql (U)O rdered By: Ruby Penn on 03-11-2022 Bilirubin Ql (U) Negative Negative [facility] Blood hemoglobin measurement (mass/volume)Ordered By: Ruby Penn on 03-11-2022 Hemoglobin (Bld) [Mass/Vol] 13.5 g/dL 11.8-15.4 [facility] Blood leukocytes automated c ount (number/volume)Ordered By: Ruby Penn on 03-11-2022 WBC (Bld) [#/Vol] 10.1 10*3/uL 4.5-11.0 [facility] Body fluid albumin measureme nt (mass/volume)Ordered By: Ruby Penn on 03-11-2022 Albumin (Body fld) [Mass/Vol] 3.9 g/dL 3.2-5.5 [facility] COVID-19 Antigenon 2 COVID-19 Antigen Healthcare Worker?: [...] signs and symptoms consistent with COVID-19. The Merry SARS Antigen MERARY does not differentiate between SARS-CoV and SARS-CoV-2. This test was developed and its performance characteristic determined by [employer] and validated at [facility]. This test has not been FDA cleared [...] for SARS Antigen by [employer]ARY PERFORMED BY: [place] [address] PATHOLOGIST ACQUISITIONS ASSISTANT KRISTI TURNER M.D. Normal [facility] Comment on above: Performed By: #### C OVID-19 AYANNA AUGUSTIN #### [address] COVID-19 SOFIAOrdered By: Joseph Penn on 03-11-2022 SARS-CoV+SARS-CoV-2 (COVID-19) Ag IA.rapid Ql (Resp) Negative Negative [facility] Comment on above: This is a duplicate Merry SARS Antigen (MERARY) result to be used for statistical tracking purpose only. Cannabinoids [Presence] in U rine by Screen methodOrdered By: Ruby Penn on 03-11-2022 Cannabinoids Screen Ql (U) Negative Negative [facility] Comment on above: These are unconfirme d results and should not be used for legal purposes. Drug Cut-Off Concentration: AMPH 1000 ng/mL LAINA 200 ng/mL AYLEEN 200 ng/mL COCM 300 ng/mL OP 300 ng/mL PCP 25 ng/mL THC 20 ng/mL Cholesterol [Mass/volume] in Serum or PlasmaOrdered By: Marco A Zaman on 03-11-2022 Cholesterol [Mass/Vol] 208 mg/dL 140-200 [facility] Comment on above: Chol less than 200 m g/dl low riskChol 201-239 mg/dl borderline riskChol 240 mg/dl and greater high risk Cholesterol in LDL Calc [Mas s/Vol]Ordered By: Marco A Zaman on 03-11-2022 Cholesterol in LDL [Mass/Vol] 120 mg/dL 0-100 [facility] Comment on above: LDL ATP III CLASSIFI CATIONLDL less than 100 mg/dL OptimalLDL 100-129 mg/dL Near or above optimalLDL 130-159 mg/dL Borderline highLDL 160-189 mg/dL HighLDL greater than 189 mg/dL Very high Cholesterol in VLDL Calc [Ma ss/Vol]Ordered By: Marco A Zaman on 03-11-2022 Cholesterol in VLDL [Mass/Vol] 30 mg/dL [facility] Color Auto (U)Ordered By: Joseph Penn on 03-11-2022 Color (U) Yellow Yellow [facility] Comprehensive Metabolic Pane sanjeev 03-11-2022 Albumin [Mass/Vol] 3.9 g/dL Normal 3.2-5.5 [facility] Comment on above: Performed By: #### L IPID, TSH3 wRFLX, [id number] #### [facility] [address] [place] [address] Albumin/Globulin [Mass ratio] 1.2 {ratio} Normal [facility] Comment on above: Performed By: #### L IPID, TSH3 wRFLX, [id number] #### [facility] [address] [place] [address] ALP [Catalytic activity/Vol] 45 U/L Normal 32-92 [facility] Comment on above: Performed By: #### L IPID, TSH3 wRFLX, [id number] #### [facility] [address] [place] [address] ALT [Catalytic activity/Vol] 22 U/L Normal 10-60 [facility] Comment on above: Performed By: #### L IPID, TSH3 wRFLX, [id number] #### [facility] [address] [place] [address] Anion gap [Moles/Vol] 17.0 mmol/L High 6.0-15.0 [facility] Comment on above: Performed By: #### L IPID, TSH3 wRFLX, [id number] #### [address] AST [Catalytic activity/Vol] 21 U/L Normal 10-42 [facility] Comment on above: Performed By: #### L IPID, TSH3 wRFLX, [id number] #### [address] Bilirubin [Mass/Vol] 0.8 mg/dL Normal 0.3-1.2 [facility] Comment on above: Performed By: #### L IPID, TSH3 wRFLX, [id number] #### [address] Calcium [Mass/Vol] 10.1 mg/dL Normal 8.2-10.2 [facility] Comment on above: Performed By: #### L IPID, TSH3 wRFLX, [id number] #### [address] Chloride [Moles/Vol] 102 mmol/L Normal 95-114 [facility] Comment on above: Performed By: #### L IPID, TSH3 wRFLX, [id number] #### [facility] [address] CO2 [Moles/Vol] 24.9 mmol/L Normal 22.0-30.0 [facility] Comment on above: Performed By: #### L IPID, TSH3 wRFLX, [id number] #### [facility] [address] [place] [address] Creatinine [Mass/Vol] 1.49 mg/dL High 0.44-1.03 [facility] Comment on above: Performed By: #### L IPID, TSH3 wRFLX, [id number] #### [address] Creatinine Clr Calc Pharmacy 37.[address] [facility] Comment on above: Result Comment: PERF ORMED BY: [place] [address] PATHOLOGIST ACQUISITIONS ASSISTANT KRISTI TURNER M.D. Performed By: #### L IPID, TSH3 wRFLX, [id number] #### [address] Estimated GFR ( Katrina [address] [facility] Comment on above: Result Comment: GFR estimated reference range: According to KDOQI guidelines, <60 ml/min/1.73m2 is sufficient to diagnose a patient with chronic kidney disease. Performed By: #### L IPID, TSH3 wRFLX, [id number] #### [facility] [address] [place] [address] [place] Estimated GFR (Non- Am [address] [facility] Comment on above: Performed By: #### L IPID, TSH3 wRFLX, [id number] #### [facility] [address] [place] [address] Globulin (S) [Mass/Vol] 3.2 g/dL [facility] Comment on above: Performed By: #### L IPID, TSH3 wRFLX, [id number] #### [facility] [address] [place] [address] Glucose [Mass/Vol] 95 mg/dL Normal 70-100 [facility] Comment on above: Result Comment: [place] Glucose Reference Range is dependent on time and content of last meal. Glucose of more than 200 mg/dL in a nonstressed, ambulatory subject supports the diagnosis of Diabetes Mellitus. ADA recommended reference range Performed By: #### L IPID, TSH3 wRFLX, [id number] #### [facility] [address] [place] [address] Potassium [Moles/Vol] 3.9 mmol/L Normal 3.5-5.1 [facility] Comment on above: Performed By: #### L IPID, TSH3 wRFLX, [id number] #### [facility] [address] [place] [address] Protein [Mass/Vol] 7.1 g/dL Normal 6.1-7.9 [facility] Comment on above: Performed By: #### L IPID, TSH3 wRFLX, [id number] #### [address] Sodium [Moles/Vol] 140 mmol/L Normal 136-146 [facility] Comment on above: Performed By: #### L IPID, TSH3 wRFLX, [id number] #### [place] [address] [place] Urea nitrogen [Mass/Vol] 30 mg/dL High 9-23 [facility] Comment on above: Performed By: #### L IPID, TSH3 wRFLX, [id number] #### [place] [address] [place] Creatinine and Glomerular fi ltration rate.predicted panel (S/P/Bld)Ordered By: Ruby Penn on 03-11-2022 Creatinine [Mass/Vol] 1.49 mg/dL 0.44-1.03 [facility] Dipstick and Microscopicon 1 Appearance (U) Clear Normal Clear [facility] Comment on above: Order Comment: Name Collection Type:: Clean-Voided Midstream Performed By: #### C UU, ADDONUAPLUS, UHCG, URDS #### [facility] [address] [place] [address] [place] Bacteria,Urine None Seen Normal None Seen [facility] Comment on above: Order Comment: Name Collection Type:: Clean-Voided Midstream Performed By: #### C UU, ADDONUAPLUS, UHCG, URDS #### [facility] [address] [place] [address] [place] Bilirubin,Urine Negative Normal Negative [facility] Comment on above: Order Comment: Name Collection Type:: Clean-Voided Midstream Performed By: #### C UU, ADDONUAPLUS, UHCG, URDS #### [facility] [address] [place] [address] Color (U) Yellow Normal Yellow [facility] Comment on above: Order Comment: Name Collection Type:: Clean-Voided Midstream Performed By: #### C UU, ADDONUAPLUS, UHCG, URDS #### [facility] [address] [place] [address] Glucose Ql (U) Normal Normal Normal [facility] Comment on above: Order Comment: Name Collection Type:: Clean-Voided Midstream Performed By: #### C UU, ADDONUAPLUS, UHCG, URDS #### [facility] [address] [place] [address] Hyaline Casts,Urine None Seen Normal 0-8 [facility] Comment on above: Order Comment: Name Collection Type:: Clean-Voided Midstream Performed By: #### C UU, ADDONUAPLUS, UHCG, URDS #### [facility] [address] [place] [address] [place] Ketones Ql (U) Negative Normal Negative [facility] Comment on above: Order Comment: Name Collection Type:: Clean-Voided Midstream Performed By: #### C UU, ADDONUAPLUS, UHCG, URDS #### [facility] [address] [place] [address] Leukocyte esterase Test strip Ql (U) 3+ High Negative [facility] Comment on above: Order Comment: Name Collection Type:: Clean-Voided Midstream Performed By: #### C UU, ADDONUAPLUS, UHCG, URDS #### [facility] [address] [place] [address] Nitrite,Urine Negative Normal Negative [facility] Comment on above: Order Comment: Name Collection Type:: Clean-Voided Midstream Performed By: #### C UU, ADDONUAPLUS, UHCG, URDS #### [address] Occult Blood,Urine Negative Normal Negative [facility] Comment on above: Order Comment: Name Collection Type:: Clean-Voided Midstream Performed By: #### C UU, ADDONUAPLUS, UHCG, URDS #### [address] pH (U) 6.5 [pH] Normal 5.0-9.0 [facility] Comment on above: Order Comment: Name Collection Type:: Clean-Voided Midstream Performed By: #### C UU, ADDONUAPLUS, UHCG, URDS #### [address] Protein,Urine Negative Normal Negative [facility] Comment on above: Order Comment: Name Collection Type:: Clean-Voided Midstream Performed By: #### C UU, ADDONUAPLUS, UHCG, URDS #### [address] RBC,Urine None Seen Normal 0-4 [facility] Comment on above: Order Comment: Name Collection Type:: Clean-Voided Midstream Performed By: #### C UU, ADDONUAPLUS, UHCG, URDS #### [address] Specificy [place],Urine 1.007 Normal 1.001-1.03 0 [facility] Comment on above: Order Comment: Name Collection Type:: Clean-Voided Midstream Performed By: #### C UU, ADDONUAPLUS, UHCG, URDS #### [address] [place] [address] [place] Squamous Epithelial Cell,Urine 0-1 Normal 0-2 [facility] Comment on above: Order Comment: Name Collection Type:: Clean-Voided Midstream Performed By: #### C UU, ADDONUAPLUS, UHCG, URDS #### [address] Urobilinogen,Urine Normal Normal Normal [facility] Comment on above: Order Comment: Name Collection Type:: Clean-Voided Midstream Performed By: #### C UU, ADDONUAPLUS, UHCG, URDS #### [address] WBC,Urine 10-19 High 0-4 [facility] Comment on above: Order Comment: Name Collection Type:: Clean-Voided Midstream Performed By: #### C UU, ADDONUAPLUS, UHCG, URDS #### [address] Drug Screen,Urineon 03-11-20 22 Amphetamine Screen,Urine Negative Normal Negative [facility] Comment on above: Performed By: #### C UU, ADDONUAPLUS, UHCG, URDS #### [address] Barbiturate Screen,Urine Negative Normal Negative [facility] Comment on above: Performed By: #### C UU, ADDONUAPLUS, UHCG, URDS #### [address] Benzodiazepines Screen,Urine Negative Normal Negative [facility] Comment on above: Performed By: #### C UU, ADDONUAPLUS, UHCG, URDS #### [address] Cannabinoid Screen,Urine Negative Normal Negative [facility] Comment on above: Result Comment: Thes e are unconfirmed results and should not be used for legal purposes. Drug Cut-Off Concentration: AMPH 1000 ng/mL LAINA 200 ng/mL AYLEEN 200 ng/mL COCM 300 ng/mL OP 300 ng/mL PCP 25 ng/mL THC 20 ng/mL PERFORMED BY: [facility] [address] [place] [address] PATHOLOGIST ACQUISITIONS ASSISTANT KRISTI TURNER M.D. Performed By: #### C UU, ADDONUAPLUS, UHCG, URDS #### [facility] [address] Cocaine Screen,Urine Negative Normal Negative [facility] Comment on above: Performed By: #### C UU, ADDONUAPLUS, UHCG, URDS #### [facility] [address] Opiate Screen,Urine Negative Normal Negative [facility] Comment on above: Performed By: #### C UU, ADDONUAPLUS, UHCG, URDS #### [facility] [address] Phencyclidine Screen,Urine Negative Normal Negative [facility] Comment on above: Performed By: #### C UU, ADDONUAPLUS, UHCG, URDS #### [facility] [address] [place] [address] [place] Eosinophils Auto (Bld) [#/Vo l]Ordered By: Ruby Penn on 03-11-2022 Eosinophils (Bld) [#/Vol] 2.1 10*3/uL 0.0-0.45 [facility] Eosinophils/100 WBC Auto (Bl d)Ordered By: Ruby Penn on 03-11-2022 Eosinophils/100 WBC (Bld) 20.9 % . [facility] Erythrocyte distribution wid th Auto (RBC) [Ratio]Ordered By: Ruby Penn on 03-11-2022 Erythrocyte distribution width (RBC) [Ratio] 14.3 % 11.9-15.3 [facility] Estimated glomerular filtrat ion rate (GFR) non- AmericanOrdered By: Ruby Penn on 03-11-2022 GFR/1.73 sq M.predicted among non-blacks MDRD (S/P/Bld) [Vol rate/Area] 35 mL/Min [facility] Ethyl Alcohol Profileon 10-0 2 Ethanol [Mass/Vol] mg/dL Normal [facility] Comment on above: Performed By: #### L IPID, TSH3 wRFLX, [id number] #### [facility] [address] [place] [address] Percent Ethanol Not performed Normal [facility] Comment on above: Result Comment: PERF ORMED BY: [place] [address] PATHOLOGIST ACQUISITIONS ASSISTANT KRISTI TURNER M.D. Performed By: #### L IPID, TSH3 wRFLX, [id number] #### [facility] [address] [place] [address] Globulin Calc (S) [Mass/Vol] Ordered By: Ruby Penn on 03-11-2022 Globulin (S) [Mass/Vol] 3.2 g/dL [facility] HCG ( test) IA.rapi d Ql (U)Ordered By: Ruby Penn on 03-11-2022 HCG ( test) Ql (U) Negative [facility] HCG,Urineon 03-11-2022 Beta HCG ( test) Ql (U) Negative Normal [facility] Comment on above: Order Comment: Name Collection Type:: Clean-Voided Midstream Result Comment: PERF ORMED BY: [place] [address] PATHOLOGIST ACQUISITIONS ASSISTANT KRISTI TURNER M.D. Performed By: #### C UU, ADDONUAPLUS, UHCG, URDS #### [facility] [address] [place] [address] [place] Hematocrit Auto (Bld) [Volum e fraction]Ordered By: Ruby Penn on 03-11-2022 Hematocrit (Bld) [Volume fraction] 40.8 % 34.0-46.4 [facility] Ketones Auto test strip (U) [Mass/Vol]Ordered By: Ruby Penn on 03-11-2022 Ketones (U) [Mass/Vol] Negative Negative [facility] - Drug toxicology Ordered By: Ruby Penn on 03-11-2022 Opiates Ql (U) Negative Negative [facility] Laboratory - Hematology and Cell countsOrdered By: Ruby Penn on 03-11-2022 Nucleated RBC/100 WBC (Bld) [Ratio] 0.1 % 0-0.5 [facility] Laboratory - UrinalysisOrder ed By: Ruby Penn on 03-11-2022 Hyaline casts LM Ql (Urine sed) None seen [LPF] 0-8 [facility] Lipid Panelon 03-11-2022 Cholesterol [Mass/Vol] 208 mg/dL High 140-200 [facility] Comment on above: Order Comment: Comme nt use ER blood Result Comment: Chol less than 200 mg/dl low risk Chol 201-239 mg/dl borderline risk Chol 240 mg/dl and greater high risk Performed By: #### L IPID, TSH3 wRFLX, [id number] #### [facility] [address] [id number] [place] Cholesterol in HDL [Mass/Vol] 58 mg/dL Normal 35-85 [facility] Comment on above: Order Comment: Comme nt use ER blood Result Comment: HDL CHOL ATP-III CLASSIFICATION Cardiovascular Risk HDL > or equal to 60 mg/dL LOW HDL < 40 mg/dL HIGH Performed By: #### L IPID, TSH3 wRFLX, [id number] #### [facility] [address] [place] [address] [place] Cholesterol.total/Chol esterol in HDL [Mass ratio] 3.6 {ratio} Normal <5.0 [facility] Comment on above: Order Comment: Comme nt use ER blood Performed By: #### L IPID, TSH3 wRFLX, [id number] #### [facility] [address] [place] [address] [place] LDL Cholesterol,Calculated 120 mg/dL High 0-100 [facility] Comment on above: Order Comment: Comme nt use ER blood Result Comment: LDL ATP III CLASSIFICATION LDL less than 100 mg/dL Optimal LDL 100-129 mg/dL Near or above optimal LDL 130-159 mg/dL Borderline high LDL 160-189 mg/dL High LDL greater than 189 mg/dL Very high Performed By: #### L IPID, TSH3 wRFLX, [id number] #### [facility] [address] Triglyceride w/Reflex 152 mg/dL High 35-149 [facility] Comment on above: Order Comment: Comme nt use ER blood Result Comment: TRIG ATP III CLASSIFICATION TRIG less than 150 mg/dL Normal TRIG 150-199 mg/dL Borderline high TRIG 200-500 mg/dL High TRIG greater than 500 mg/dL Very high Standard traceable to the Center for Disease Conrtrol and Prevention (CDC) test method. Performed By: #### L IPID, TSH3 wRFLX, [id number] #### [facility] [address] VLDL CHOLESTEROL 30 mg/dL Normal [facility] Comment on above: Order Comment: Comme nt use ER blood Performed By: #### L IPID, TSH3 wRFLX, [id number] #### [facility] [address] Lymphocytes Auto (Bld) [#/Vo l]Ordered By: Ruby Penn on 03-11-2022 Lymphocytes (Bld) [#/Vol] 3.2 10*3/uL 1.00-4.8 [facility] Lymphocytes/100 WBC Auto (Bl d)Ordered By: Ruby Penn on 03-11-2022 Lymphocytes/100 WBC (Bld) 31.5 % . [facility] MCH Auto (RBC) [Entitic mass ]Ordered By: Ruby Penn on 03-11-2022 MCH (RBC) [Entitic mass] 30.7 pg 24.7-34.3 [facility] MCHC Auto (RBC) [Mass/Vol]Or dered By: Ruby Penn on 03-11-2022 MCHC (RBC) [Mass/Vol] 33.0 g/dL 32.0-35.0 [facility] MCV Auto (RBC) [Entitic vol] Ordered By: Ruby Penn on 03-11-2022 MCV (RBC) [Entitic vol] 93.2 fL 80-100 [facility] Monocytes Auto (Bld) [#/Vol] Ordered By: Ruby Penn on 03-11-2022 Monocytes (Bld) [#/Vol] 0.8 10*3/uL 0.0-0.8 [facility] Monocytes/100 WBC Auto (Bld) Ordered By: Ruby Penn on 03-11-2022 Monocytes/100 WBC (Bld) 8.2 % . [facility] Neutrophils Auto (Bld) [#/Vo l]Ordered By: Ruby Penn on 03-11-2022 Neutrophils (Bld) [#/Vol] 3.9 10*3/uL 1.8-7.7 [facility] Neutrophils/100 WBC Auto (Bl d)Ordered By: Ruby Penn on 03-11-2022 Neutrophils/100 WBC (Bld) 38.6 % . [facility] Nitrite Test strip Ql (U)Ord ered By: Ruby Penn on 03-11-2022 Nitrite Ql (U) Negative Negative [facility] No Panel InformationOrdered By: Marco A Zaman on 03-11-2022 25-Hydroxy Vitamin D Total 34.7 ng/mL 30-100 [facility] Comment on above: VITAMIN D STATUS 25( [place])VITAMIN D RANGE (ng/mL) Deficient <20 Insufficient 20 to <30Sufficient 30 to 100Reference: Monty BRANDT,Hilda LAZARO, Mariajose MARY, et al. Evaluation,treatment, and prevention of vitamin D deficiency; an Endocrine Society clinical practice guideline. JCEM. 2010; 96(7):1911-30. No Panel InformationOrdered By: Ruby Penn on 03-11-2022 Estimated GFR () 43 mL/Min [facility] Comment on above: GFR estimated refere nce range: According to KDOQI guidelines, <60 ml/min/1.73m2 is sufficient to diagnose a patient with chronic kidney disease. Pharmacy Creatinine Clearance (Chem 37.23 [facility] Platelet Estimate Normal Normal [facility] Platelet Morphology Comment Normal Normal [facility] SARS Antigen (LFIA) [facility] Phencyclidine Screen Ql (U)O rdered By: Ruby Penn on 03-11-2022 Phencyclidine Ql (U) Negative Negative [facility] Platelet mean volume Auto (B ld) [Entitic vol]Ordered By: Ruby Penn on 03-11-2022 Platelet mean volume (Bld) [Entitic vol] 8.8 fL 6.3-10.7 [facility] Platelets Auto (Bld) [#/Vol] Ordered By: Ruby Penn on 03-11-2022 Platelets (Bld) [#/Vol] 287 10*3/uL 150-450 [facility] Protein Auto test strip (U) [Mass/Vol]Ordered By: Ruby Penn on 03-11-2022 Protein (U) [Mass/Vol] Negative Negative [facility] Protein [Mass/volume] in Ser um or PlasmaOrdered By: Ruby Penn on 03-11-2022 Protein [Mass/Vol] 7.1 g/dL 6.1-7.9 [facility] RBC Auto (Bld) [#/Vol]Ordere d By: Ruby Penn on 03-11-2022 RBC (Bld) [#/Vol] 4.38 10*6/uL 3.60-5.00 [facility] RBC morphologyOrdered By: Joseph Penn on 03-11-2022 RBC morphology finding Nom (Bld) Normal [facility] Scan and CBCon 03-11-2022 Basophils (Bld) [#/Vol] 0.1 10*3/uL Normal 0.0-0.2 [facility] Comment on above: Performed By: #### L IPID, TSH3 wRFLX, [id number] #### [facility] [address] [place] [address] [place] Basophils/100 WBC (Bld) 0.8 % Normal . [facility] Comment on above: Performed By: #### L IPID, TSH3 wRFLX, [id number] #### [facility] [address] [place] [address] [place] Eosinophils (Bld) [#/Vol] 2.1 10*3/uL High 0.0-0.45 [facility] Comment on above: Performed By: #### L IPID, TSH3 wRFLX, [id number] #### [address] Eosinophils/100 WBC (Bld) 20.9 % Normal . [facility] Comment on above: Performed By: #### L IPID, TSH3 wRFLX, [id number] #### [address] Erythrocyte distribution width (RBC) [Ratio] 14.3 % Normal 11.9-15.3 [facility] Comment on above: Performed By: #### L IPID, TSH3 wRFLX, [id number] #### [address] Hematocrit (Bld) [Volume fraction] 40.8 % Normal 34.0-46.4 [facility] Comment on above: Performed By: #### L IPID, TSH3 wRFLX, [id number] #### [address] Hemoglobin (Bld) [Mass/Vol] 13.5 g/dL Normal 11.8-15.4 [facility] Comment on above: Performed By: #### L IPID, TSH3 wRFLX, [id number] #### [address] Lymphocytes (Bld) [#/Vol] 3.2 10*3/uL Normal 1.00-4.8 [facility] Comment on above: Performed By: #### L IPID, TSH3 wRFLX, [id number] #### [address] Lymphocytes/100 WBC (Bld) 31.5 % Normal . [facility] Comment on above: Performed By: #### L IPID, TSH3 wRFLX, [id number] #### [address] MCH (RBC) [Entitic mass] 30.7 pg Normal 24.7-34.3 [facility] Comment on above: Performed By: #### L IPID, TSH3 wRFLX, [id number] #### [facility] [address] [place] [address] MCV (RBC) [Entitic vol] 93.2 fL Normal 80-100 [facility] Comment on above: Performed By: #### L IPID, TSH3 wRFLX, [id number] #### [facility] [address] [place] [address] Mean Corpuscular HGB Conc 33.0 g/dL Normal 32.0-35.0 [facility] Comment on above: Performed By: #### L IPID, TSH3 wRFLX, [id number] #### [address] Monocytes (Bld) [#/Vol] 0.8 10*3/uL Normal 0.0-0.8 [facility] Comment on above: Performed By: #### L IPID, TSH3 wRFLX, [id number] #### [place] [address] [place] Monocytes/100 WBC (Bld) 8.2 % Normal . [facility] Comment on above: Performed By: #### L IPID, TSH3 wRFLX, [id number] #### [address] Neutrophils (Bld) [#/Vol] 3.9 10*3/uL Normal 1.8-7.7 [facility] Comment on above: Performed By: #### L IPID, TSH3 wRFLX, [id number] #### [address] Neutrophils/100 WBC (Bld) 38.6 % Normal . [facility] Comment on above: Performed By: #### L IPID, TSH3 wRFLX, [id number] #### [place] [address] [place] Nucleated RBC/100 WBC (Bld) [Ratio] 0.1 % Normal 0-0.5 [facility] Comment on above: Performed By: #### L IPID, TSH3 wRFLX, [id number] #### [facility] [address] Platelet Estimate Normal Normal Normal [facility] Comment on above: Performed By: #### L IPID, TSH3 wRFLX, [id number] #### [facility] [address] Platelet mean volume (Bld) [Entitic vol] 8.8 fL Normal 6.3-10.7 [facility] Comment on above: Performed By: #### L IPID, TSH3 wRFLX, [id number] #### [address] Platelet Morphology Normal Normal Normal [facility] Comment on above: Result Comment: PERF ORMED BY: [place] [address] PATHOLOGIST ACQUISITIONS ASSISTANT KRISTI TURNER M.D. Performed By: #### L IPID, TSH3 wRFLX, [id number] #### [facility] [address] [place] [address] [place] Platelets (Bld) [#/Vol] 287 10*3/uL Normal 150-450 [facility] Comment on above: Performed By: #### L IPID, TSH3 wRFLX, [id number] #### [place] [address] [place] RBC (Bld) [#/Vol] 4.38 10*6/uL Normal 3.60-5.00 [facility] Comment on above: Performed By: #### L IPID, TSH3 wRFLX, [id number] #### [facility] [address] [place] [address] RBC morphology finding Nom (Bld) Normal Normal [facility] Comment on above: Performed By: #### L IPID, TSH3 wRFLX, [id number] #### [facility] [address] [place] [address] [place] WBC (Bld) [#/Vol] 10.1 10*3/uL Normal 4.5-11.0 [facility] Comment on above: Performed By: #### L IPID, TSH3 wRFLX, [id number] #### [facility] [address] Serum or plasma alanine arora otransferase measurement without P-5'-P (enzymatic activiOrdered By: Ruby Penn on 03-11-2022 ALT No additional P-5'-P [Catalytic activity/Vol] 22 U/L 1060 [facility] Serum or plasma albumin/glob ulin mass ratioOrdered By: Ruby Penn on 03-11-2022 Albumin/Globulin [Mass ratio] 1.2 {ratio} [facility] Serum or plasma alkaline lashaun sphatase measurement (enzymatic activity/volume)Ordered By: Ruby Penn on 03-11-2022 ALP [Catalytic activity/Vol] 45 U/L 32-92 [facility] Serum or plasma anion gap de terminationOrdered By: Ruby Penn on 03-11-2022 Anion gap [Moles/Vol] 17.0 mmol/L 6.0-15.0 [facility] Serum or plasma aspartate am inotransferase measurement (enzymatic activity/volume)Ordered By: Ruby Penn on 03-11-2022 AST [Catalytic activity/Vol] 21 U/L 1042 [facility] Serum or plasma calcium sunil urement (mass/volume)Ordered By: Ruby Penn on 03-11-2022 Calcium [Mass/Vol] 10.1 mg/dL 8.2-10.2 [facility] Serum or plasma chloride leo surement (moles/volume)Ordered By: Ruby Penn on 03-11-2022 Chloride [Moles/Vol] 102 mmol/L 95-114 [facility] Serum or plasma ethanol sunil urement (mass/volume)Ordered By: Ruby Penn on 03-11-2022 Ethanol [Mass/Vol] mg/dL [facility] Ethanol [Mass/Vol] TNP [facility] Comment on above: Test not performed Serum or plasma glucose sunil urement (mass/volume)Ordered By: Ruby Penn on 03-11-2022 Glucose [Mass/Vol] 95 mg/dL 70-100 [facility] Comment on above: ADA recommended refe rence rangeRandom Glucose Reference Range is dependent on time and content of last meal. Glucose of more than 200 mg/dL in a nonstressed, ambulatory subject supports the diagnosis of Diabetes Mellitus. Serum or plasma high density lipoprotein (HDL) cholesterol measurementOrdered By: Marco A Zaman on 03-11-2022 Cholesterol in HDL [Mass/Vol] 58 mg/dL 35-85 [facility] Comment on above: HDL CHOL ATP-III CLA SSIFICATION Cardiovascular RiskHDL > or equal to 60 mg/dL LOWHDL < 40 mg/dL HIGH Serum or plasma potassium me asurement (moles/volume)Ordered By: Ruby Penn on 03-11-2022 Potassium [Moles/Vol] 3.9 mmol/L 3.5-5.1 [facility] Serum or plasma sodium measu rement (moles/volume)Ordered By: Ruby Penn on 03-11-2022 Sodium [Moles/Vol] 140 mmol/L 136-146 [facility] Serum or plasma total biliru bin measurement (mass/volume)Ordered By: Ruby Penn on 03-11-2022 Bilirubin [Mass/Vol] 0.8 mg/dL 0.3-1.2 [facility] Serum or plasma total carbon dioxide measurement (moles/volume)Ordered By: Ruby Penn on 03-11-2022 CO2 [Moles/Vol] 24.9 mmol/L 22.0-30.0 [facility] Serum or plasma total choles terol/high density lipoprotein (HDL) cholesterol mass ratOrdered By: Marco A Zaman on 03-11-2022 Cholesterol.total/Chol esterol in HDL [Mass ratio] 3.6 {ratio} <5.0 [facility] Serum or plasma urea nitroge n measurement (mass/volume)Ordered By: Ruby Penn on 03-11-2022 Urea nitrogen [Mass/Vol] 30 mg/dL 9- [facility] Merry Ag Negativeon 03-11-20 Merry Ag Negative Negative Normal Negative [facility] Comment on above: Result Comment: This is a duplicate Merry SARS Antigen (MERARY) result to be used for statistical tracking purpose only. PERFORMED BY: [place] [address] PATHOLOGIST ACQUISITIONS ASSISTANT KRISTI TURNER M.D. Performed By: #### L IPID, TSH3 wRFLX, [id number] #### [facility] [address] [place] [address] Specific gravity Auto test s trip (U) [Rel density]Ordered By: Ruby Penn on 03-11-2022 Specific gravity (U) [Rel density] 1.007 1.001-1.03 0 [facility] Squamous epithelial cells de tection in urine sediment by light microscopyOrdered By: Ruby Penn on 03-11-2022 Epithelial cells.squamous LM Ql (Urine sed) 0-1 [HPF] 0-2 [facility] TSH DL <= 0.005 mIU/L QnOrde red By: Marco A Zaman on 03-11-2022 TSH Qn 1.67 m[IU]/L 0.45-5.33 [facility] Thyroid Stim Hormone w/Rflxo n 03-11-2022 Thyroid Stim Hormone w/Rflx 1.67 u[iU]/mL Normal 0.45-5.33 [facility] Comment on above: Order Comment: Comme nt use ER blood Performed By: #### L IPID, TSH3 wRFLX, [id number] #### [facility] [address] [place] [address] Triglyceride [Mass/volume] i n Serum or PlasmaOrdered By: Marco A Zaman on 03-11-2022 Triglyceride [Mass/Vol] 152 mg/dL 35-149 [facility] Comment on above: TRIG ATP III CLASSIF ICATIONTRIG less than 150 mg/dL NormalTRIG 150-199 mg/dL Borderline highTRIG 200-500 mg/dL High TRIG greater than 500 mg/dL Very highStandard traceable to the Center for Disease Conrtrol and Prevention (CDC) test method. Urine Cultureon 03-11-2022 Bacteria identified Cx Nom (U) 25,000 colonies/ml mixed bacterial skin contaminants 2 Days PERFORMED BY: [place] [address] PATHOLOGIST ACQUISITIONS ASSISTANT KRISTI TURNER M.D. [facility] Comment on above: Performed By: #### C UU, ADDONUAPLUS, UHCG, URDS #### [facility] [address] [place] [address] Urine bacteria detection by automated methodOrdered By: Ruby Penn on 03-11-2022 Bacteria Auto Ql (U) None seen None Seen [facility] Urine clarity by refractomet ry automatedOrdered By: Ruby Penn on 03-11-2022 Clarity Refractometry automated (U) Clear Clear [facility] Urine cocaine detectionOrder ed By: Ruby Penn on 03-11-2022 Cocaine Ql (U) Negative Negative [facility] Urine glucose measurement by automated test strip (mass/volume)Ordered By: Ruby Penn on 03-11-2022 Glucose Auto test strip (U) [Mass/Vol] Normal mg/dL Normal [facility] Urine hemoglobin detection b y automated test stripOrdered By: Ruby Penn on 03-11-2022 Hemoglobin Auto test strip Ql (U) Negative Negative [facility] Urine leukocyte esterase det ection by automated test stripOrdered By: Ruby Penn on 03-11-2022 Leukocyte esterase Auto test strip Ql (U) 3+ Negative [facility] Urobilinogen Auto test strip (U) [Mass/Vol]Ordered By: Ruby Penn on 03-11-2022 Urobilinogen (U) [Mass/Vol] Normal mg/dL Normal [facility] Vitamin D 25 Hydroxy Totalon 03-11-2022 Vitamin D 25 Hydroxy Total 34.7 ng/mL Normal 30-100 [facility] Comment on above: Order Comment: Comme nt use ER blood Result Comment: JUAN MIN D STATUS 25([place])VITAMIN D RANGE (ng/mL) Deficient <20 Insufficient 20 to <30 Sufficient 30 to 100 Reference: Monty MF,Hilda NC, Mariajose MARY, et al. Evaluation,treatment, and prevention of vitamin D deficiency; an Endocrine Society clinical practice guideline. JCEM. 2010; 96(7):1911-30. PERFORMED BY: [facility] [address] [place] [address] PATHOLOGIST ACQUISITIONS ASSISTANT KRISTI TURNER M.D. Performed By: #### L IPID, TSH3 wRFLX, [id number] #### [facility] [address] pH Auto test strip (U)Ordere d By: Ruby Penn on 03-11-2022 pH (U) 6.5 [pH] 5.0-9.0 [facility] RENAL FUNCTION PANELon 01-22 Albumin [Mass/Vol] 3.5 g/dL Normal 3.4-5.0 [facility] Comment on above: Performed By: #### R ENAL #### [facility] [address] [address] [address] Emanuel Degroot Calcium [Mass/Vol] 9.5 mg/dL Normal 8.5-10.1 [facility] Comment on above: Performed By: #### R ENAL #### [facility] [address] [address] [address] Emanuel Degroot Chloride [Moles/Vol] 107 mmol/L Normal 98-107 [facility] Comment on above: Performed By: #### R ENAL #### [facility] [address] [address] [address] Emanuel Degroot CO2 [Moles/Vol] 28.6 mmol/L Normal 21.0-32.0 [facility] Comment on above: Performed By: #### R ENAL #### [facility] [address] [address] [address] Emanuel Degroot Creatinine [Mass/Vol] 1.35 mg/dL Critically high 0.55-1.02 [facility] Comment on above: Performed By: #### R ENAL #### [facility] [address] [address] [address] Emanuel Degroot EGFR-AF NAMIBIAN 48 mL/min/1.73m2 Critically low >=60 [facility] Comment on above: Performed By: #### R ENAL #### [facility] [address] [address] [address] Emanuel Degroot EGFR-NON AF NAMIBIAN 40 mL/min/1.73m2 Critically low >=60 [facility] Comment on above: Performed By: #### R ENAL #### [facility] [address] [address] [address] Emanuel Degroot Glucose [Mass/Vol] 141 mg/dL Critically high 74-106 [facility] Comment on above: Performed By: #### R ENAL #### [facility] [address] [address] [address] Emanuel Degroot Phosphate [Mass/Vol] 3.8 mg/dL Normal 2.6-4.7 [facility] Comment on above: Performed By: #### R ENAL #### [facility] [address] [address] [address] Emanuel Degroot Potassium [Moles/Vol] 3.8 mmol/L Normal 3.5-5.1 [facility] Comment on above: Performed By: #### R ENAL #### [facility] [address] [address] [address] Emanuel Degroot Sodium [Moles/Vol] 143 mmol/L Normal 136-145 [facility] Comment on above: Performed By: #### R ENAL #### [facility] [address] [address] [address] Emanuel Degroot Urea nitrogen [Mass/Vol] 29.0 mg/dL Critically high 7.0-18.0 [facility] Comment on above: Performed By: #### R ENAL #### [facility] [address] [address] [address] Emanuel Degroot XR ANKLE RT MIN [...] by: MIR HENRY Date: 2021-12-07 18:21 Normal [facility] LITHIUMon 12-06-2021 [place] (Eskalith(R)), Serum <0.1 Critically low 0.5-1.2 [facility] Comment on above: Result Comment: Plas ma concentration of 0.5 - 0.8 mmol/L are advised for long-term use; concentrations of up to 1.2 mmol/L may be necessary during acute treatment. Verified by repeat analysis Detection Limit = 0.1 <0.1 indicates None Detected Performed By: #### L ITHIUM #### [facility] [address] [place], [place] [address] Dr. Emanuel Degroot LIPID PROFILEon 12-05-2021 CHOL-HDL RATIO NORM SEE BELOW Normal [facility] Comment on above: Result Comment: 3.3 - 4.4 LOW RISK 4.4 - 7.1 AVERAGE RISK 7.1 - 11.0 MODERATE RISK >11.0 HIGH RISK Performed By: #### L IPID, CMP, TSH ####[facility] [id number] [place], [place] [address]DnAleah Degroot Cholesterol [Mass/Vol] 264 mg/dL Critically high <=200 [facility] Comment on above: Performed By: #### L IPID, CMP, TSH ####[facility] [id number] [place], [place] [address]LkAleah Degroot Cholesterol in HDL [Mass/Vol] 76 mg/dL Critically high 40-60 [facility] Comment on above: Performed By: #### L IPID, CMP, TSH ####[facility] [address] [place], [place] [address]NiAleah Degroot Cholesterol in LDL [Mass/Vol] 171.2 mg/dL Normal [facility] Comment on above: Performed By: #### L IPID, CMP, TSH ####[facility] [address] [place], [place] [address]SeAleah Degroot Cholesterol.total/Chol esterol in HDL [Mass ratio] 3.5 {ratio} Normal [facility] Comment on above: Performed By: #### L IPID, CMP, TSH ####[facility] [id number] [id number] Degroot HDL NORMAL > or = 60 mg/dl - LO W CARDIOVASCULAR RISK <40 mg/dl - HIGH CARDIOVASCULAR RISK Normal [facility] Comment on above: Performed By: #### L IPID, CMP, TSH ####[facility] [id number] [id number][address] Emanuel Degroot LDL CALC NORMAL SEE BELOW Normal [facility] Comment on above: Result Comment: <100 mg/dl OPTIMAL 100 - 129 mg/dl NEAR OR ABOVE OPTIMAL 130 - 159 mg/dl BORDERLINE HIGH 160 - 189 mg/dl HIGH >190 mg/dl VERY HIGH Performed By: #### L IPID, CMP, TSH ####[facility] [id number] [place] [address]Dr. Emanuel Degroot Triglyceride [Mass/Vol] 84 mg/dL Normal <=150 [facility] Comment on above: Performed By: #### L IPID, CMP, TSH ####[facility] [id number] [place] [address]Dr. Emanuel Degroot VLDL CALC 16.8 mg/dL Normal [facility] Comment on above: Performed By: #### L IPID, CMP, TSH ####[facility] [id number] [id number]. Emanuel Degroot PROF 14(COMP METB)on 022 Albumin [Mass/Vol] 3.8 g/dL Normal 3.4-5.0 [facility] Comment on above: Performed By: #### L IPID, CMP, TSH #### [facility] [address] [address] [address] Emanuel Degroot Albumin/Globulin [Mass ratio] 1.1 {ratio} Normal [facility] Comment on above: Performed By: #### L IPID, CMP, TSH #### [facility] [address] [address] [address] Emanuel Degroot ALP [Catalytic activity/Vol] 32 U/L Critically low 46-116 [facility] Comment on above: Performed By: #### L IPID, CMP, TSH #### [facility] [address] [address] [address] Emanuel Degroot ALT [Catalytic activity/Vol] 28 U/L Normal 14-59 [facility] Comment on above: Performed By: #### L IPID, CMP, TSH #### [facility] [address] [address] [address] Emanuel Degroot Anion gap [Moles/Vol] 11.0 mmol/L Normal [facility] Comment on above: Performed By: #### L IPID, CMP, TSH #### [facility] [address] [place] [address] Dr. Emanuel Degroot AST [Catalytic activity/Vol] 16 U/L Normal 15-37 [facility] Comment on above: Performed By: #### L IPID, CMP, TSH #### [facility] [address] [address] [address] Emanuel Degroot Bilirubin [Mass/Vol] 0.3 mg/dL Normal 0.2-1.0 [facility] Comment on above: Performed By: #### L IPID, CMP, TSH #### [facility] [address] [place] [address] Dr. Emanuel Degroot Calcium [Mass/Vol] 9.7 mg/dL Normal 8.5-10.1 [facility] Comment on above: Performed By: #### L IPID, CMP, TSH #### [facility] [address] [place] [address] Dr. Emanuel Degroot Chloride [Moles/Vol] 105 mmol/L Normal 98-107 [facility] Comment on above: Performed By: #### L IPID, CMP, TSH #### [facility] [address] [place] [address] Dr. Emanuel Degroot CO2 [Moles/Vol] 30.4 mmol/L Normal 21.0-32.0 [facility] Comment on above: Performed By: #### L IPID, CMP, TSH #### [facility] [address] [address] [address] Emanuel Degroot Creatinine [Mass/Vol] 1.40 mg/dL Critically high 0.55-1.02 [facility] Comment on above: Performed By: #### L IPID, CMP, TSH #### [facility] [address] [place] [address] Dr. Emanuel Degroot EGFR-AF NAMIBIAN 46 mL/min/1.73m2 Critically low >=60 [facility] Comment on above: Performed By: #### L IPID, CMP, TSH #### [facility] [address] [place] [address] Dr. Emanuel Degroot EGFR-NON AF NAMIBIAN 38 mL/min/1.73m2 Critically low >=60 [facility] Comment on above: Performed By: #### L IPID, CMP, TSH #### [facility] [address] [place] [address] Dr. Emanuel Degroot Globulin (S) [Mass/Vol] 3.6 g/dL Normal [facility] Comment on above: Performed By: #### L IPID, CMP, TSH #### [facility] [address] [place] [address] Dr. Emanuel Dergoot Glucose [Mass/Vol] 98 mg/dL Normal 74-106 [facility] Comment on above: Performed By: #### L IPID, CMP, TSH #### [facility] [address] [place] [address] Dr. Emaunel Degroot Potassium [Moles/Vol] 4.4 mmol/L Normal 3.5-5.1 [facility] Comment on above: Performed By: #### L IPID, CMP, TSH #### [facility] [address] [place] [address] Dr. Emanuel Degroot Protein [Mass/Vol] 7.4 g/dL Normal 6.4-8.2 [facility] Comment on above: Performed By: #### L IPID, CMP, TSH #### [facility] [address] [place] [address] Dr. Emanuel Degroot Sodium [Moles/Vol] 142 mmol/L Normal 136-145 [facility] Comment on above: Performed By: #### L DARVIN ANDERSON, TSH #### [facility] [address] [address] [address] Emanuel Degroot Urea nitrogen [Mass/Vol] 25.0 mg/dL Critically high 7.0-18.0 [facility] Comment on above: Performed By: #### L DARVIN ANDERSON, TSH #### [facility] [address] [address] [address] Emanuel Degroot Urea nitrogen/Creatinine [Mass ratio] 17.9 mg/mg Normal [facility] Comment on above: Performed By: #### L DARVIN ANDERSON, TSH #### [facility] [address] [address] [address] Emanuel Degroot TSHon 12-05-2021 TSH 1.960 uIU/mL Normal 0.358-3.74 0 [facility] Comment on above: Performed By: #### L DARVIN ANDERSON, TSH ####[facility] [address] [address]DrAleah Degroot PTH INTACTon 09-22-2021 PTH, Intact 103 pg/mL Critically high 15-65 [facility] Comment on above: Performed By: #### P THINT ####[facility] [address] [address]DrAleah Degroot HEMOGRAM AND PLATELon 2021 Hematocrit (Bld) [Volume fraction] 37.8 % Normal 36.0-48.0 [facility] Comment on above: Performed By: #### H H ####[facility] [address] [id number] Degroot Hemoglobin (Bld) [Mass/Vol] 11.8 g/dL Critically low 12.0-16.0 [facility] Comment on above: Performed By: #### H H ####[facility] [address] [id number] Degroot MCH (RBC) [Entitic mass] 31.7 pg Normal 26.7-34.0 [facility] Comment on above: Performed By: #### H H ####[facility] [address] [address]Dr. Emanuel Degroot MCHC (RBC) [Mass/Vol] 31.2 g/dL Normal 29.9-35.2 [facility] Comment on above: Performed By: #### H H ####[facility] [address] [id number] Degroot MCV (RBC) [Entitic vol] 101.6 fL Critically high 81.0-99.0 [facility] Comment on above: Performed By: #### H H ####[facility] [address] [address]Dr. Emanuel Degroot PLT 237 103/ul Normal 150-450 [facility] Comment on above: Performed By: #### H H ####[facility] [address] [address]DrAleah Degroot RBC 3.72 106/ul Critically low 4.20-5.40 [facility] Comment on above: Performed By: #### H H ####[facility] [address] [address]Dr. Emanuel Degroot WBC 7.8 103/ul Normal 4.0-11.0 [facility] Comment on above: Performed By: #### H H ####[facility] [address] [address]Dr. Emanuel Degroot MAGNESIUMon 09-21-2021 Magnesium [Mass/Vol] 2.4 mg/dL Critically high 1.6-2.3 [facility] Comment on above: Performed By: #### R REANNA, MG #### [facility] [address] [address] [address] Emanuel Degroot RENAL FUNCTION PANELon 09-21 Albumin [Mass/Vol] 3.5 g/dL Normal 3.4-5.0 [facility] Comment on above: Performed By: #### R REANNA, MG #### [facility] [address] [address] [address] Emanuel Degroot Calcium [Mass/Vol] 9.4 mg/dL Normal 8.5-10.1 [facility] Comment on above: Performed By: #### R ENAL, MG #### [facility] [address] [place] [address] Dr. Emanuel Degroot Chloride [Moles/Vol] 104 mmol/L Normal 98-107 [facility] Comment on above: Performed By: #### R ENAL, MG #### [facility] [address] [place] [address] Dr. Emanuel Degroot CO2 [Moles/Vol] 28.4 mmol/L Normal 22.0-30.0 [facility] Comment on above: Performed By: #### R ENAL, MG #### [facility] [address] [place] [address] Dr. Emanuel Degroot Creatinine [Mass/Vol] 1.58 mg/dL Critically high 0.52-1.04 [facility] Comment on above: Performed By: #### R ENAL, MG #### [facility] [address] [place] [address] Dr. Emanuel Degroot EGFR-AF NAMIBIAN 40 mL/min/1.73m2 Critically low >=60 [facility] Comment on above: Performed By: #### R ENAL, MG #### [facility] [address] [place] [address] Dr. Emanuel Degroot EGFR-NON AF NAMIBIAN 33 mL/min/1.73m2 Critically low >=60 [facility] Comment on above: Performed By: #### R ENAL, MG #### [facility] [address] [place] [address] Dr. Emanuel Degroot Glucose [Mass/Vol] 83 mg/dL Normal 74-106 [facility] Comment on above: Performed By: #### R ENAL, MG #### [facility] [address] [place] [address] Dr. Emanuel Degroot Phosphate [Mass/Vol] 4.4 mg/dL Normal 2.5-4.5 [facility] Comment on above: Performed By: #### R ENAL, MG #### [facility] [address] [address] [address] Emanuel Degroot Potassium [Moles/Vol] 3.9 mmol/L Normal 3.4-5.0 [facility] Comment on above: Performed By: #### R ENAL, MG #### [facility] [address] [address] [address] Emanuel Degroot Sodium [Moles/Vol] 139 mmol/L Normal 137-145 [facility] Comment on above: Performed By: #### R ENAL, MG #### [facility] [address] [address] [address] Emanuel Degroot Urea nitrogen [Mass/Vol] 28.0 mg/dL Critically high 7.0-18.0 [facility] Comment on above: Performed By: #### R ENAL, MG #### [facility] [address] [place] [address] Dr. Emanuel Degroot UA RANDOM W/MICROSCOPICon BACTERIA NONE SEEN Normal NONE SEEN [facility] Comment on above: Performed By: #### U AMIC #### [facility] [address] [place] [address] Dr. Emanuel Degroot Bilirubin Ql (U) Negative Normal NEGATIVE [facility] Comment on above: Performed By: #### U AMIC #### [facility] [address] [place] [address] Dr. Emanuel Degroot CAST NONE SEEN Normal NONE SEEN [facility] Comment on above: Performed By: #### U AMIC #### [facility] [address] [place] [address] Dr. Emanuel Degroot Clarity (U) CLEAR Normal CLEAR [facility] Comment on above: Performed By: #### U AMIC #### [facility] [address] [place] [address] Dr. Emanuel Degroot Color (U) LT. YELLOW Normal YELLOW [facility] Comment on above: Performed By: #### U AMIC #### [facility] [address] [place] [address] Dr. Emanuel Degroot Crystals LM Nom (Urine sed) NONE SEEN Normal NONE SEEN [facility] Comment on above: Performed By: #### U AMIC #### [facility] [address] [address] [address] Emanuel Degroot Epithelial cells LM Ql (Urine sed) MODERATE Abnormal NONE SEEN /RARE [facility] Comment on above: Performed By: #### U AMIC #### [facility] [address] [address] [address] Emanuel Degroot Glucose Ql (U) Negative Normal NEGATIVE [facility] Comment on above: Performed By: #### U AMIC #### [facility] [address] [address] [address] Emanuel Degroot Hemoglobin Ql (U) Negative Normal NEGATIVE [facility] Comment on above: Performed By: #### U AMIC #### [facility] [address] [address] [address] Emanuel Degroot Ketones Ql (U) Negative Normal NEGATIVE [facility] Comment on above: Performed By: #### U AMIC #### [facility] [address] [address] [address] Emanuel Degroot LEUKOCYTES SMALL Abnormal NEGATIVE [facility] Comment on above: Performed By: #### U AMIC #### [facility] [address] [address] [address] Emanuel Degroot MUCOUS NONE SEEN Normal NONE SEEN [facility] Comment on above: Performed By: #### U AMIC #### [facility] [address] [place] [address] Dr. Emanuel Degroot Nitrite Ql (U) Negative Normal NEGATIVE [facility] Comment on above: Performed By: #### U AMIC #### [facility] [address] [address] [address] Emanuel Degroot pH (U) 6.5 [pH] Normal 5-9 [facility] Comment on above: Performed By: #### U AMIC #### [facility] [address]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 [place] [address] Lymphocytes/100 leukocytes 21 % Low 24-44 [facility] Comment on above: Performed By: #### C DP, CMPX ####[address] [address] #### TREP, B12FOL ####[address] [address] MCH 31.9 pg Normal 26-34 [facility] Comment on above: Performed By: #### C DP, CMPX ####[address] [address] #### TREP, B12FOL ####[address] [address] MCHC mass conc (RBC) 34.0 g/dL Normal 31-37 [facility] Comment on above: Performed By: #### C DP, CMPX ####[address] [address] #### TREP, B12FOL ####[address] [address] MCV 93.8 fL Normal 80-100 [facility] Comment on above: Performed By: #### C DP, CMPX ####[address] [address] #### TREP, B12FOL ####[facility] [place] [address] Monocytes 1.00 10*3/uL Normal 0.1-1.3 [facility] Comment on above: Performed By: #### C DP, CMPX ####[facility] [place] [address] #### TREP, B12FOL ####[address] [place] [address] Monocytes/100 leukocytes 12 % High 1-7 [facility] Comment on above: Performed By: #### C DP, CMPX ####[address] [address] #### TREP, B12FOL ####[address] [address] Neutrophil (Seg) 66 % Normal 36-66 [facility] Comment on above: Performed By: #### C DP, CMPX ####[facility] [place] [address] #### TREP, B12FOL ####[address] [address] Platelet mean volume (PMV) 8.4 fL Normal 6.0-12.0 [facility] Comment on above: Performed By: #### C DP, CMPX ####[address] [address] #### TREP, B12FOL ####[address] [place] [address] Platelets 249 10*3/uL Normal 150-450 [facility] Comment on above: Performed By: #### C DP, CMPX ####[address] [address] #### TREP, B12FOL ####[address] [address] WBC (Leukocytes) 8.9 10*3/uL Normal 3.5-11.0 [facility] Comment on above: Performed By: #### C DP, CMPX ####[facility] [place] [address] #### TREP, B12FOL ####[address] [address] Auto Diff Performed NOT REPORTED Normal [facility] Comment on above: Performed By: #### C DP, CMPX ####[address] [address] #### TREP, B12FOL ####[address] [address] Erythrocyte morphology NOT REPORTED Normal [facility] Comment on above: Performed By: #### C DP, CMPX ####[facility] [place] [address] #### TREP, B12FOL ####[address] [address] Erythrocytes (RBC) NOT REPORTED Normal [facility] Comment on above: Performed By: #### C DP, CMPX ####[facility] [place] [address] #### TREP, B12FOL ####[address] [address] Granulocytes/100 WBC (Bld) NOT REPORTED Normal 0.00-0.30 [facility] Comment on above: Performed By: #### C DP, CMPX ####[facility] [place] [address] #### TREP, B12FOL ####[address] [address] Immature granulocytes #/vol (Bld) NOT REPORTED Normal 0 [facility] Comment on above: Performed By: #### C DP, CMPX ####[address] [address] #### TREP, B12FOL ####[address] [address] Platelets NOT REPORTED Normal [facility] Comment on above: Performed By: #### C DP, CMPX ####[address] [address] #### TREP, B12FOL ####[address] [address] WBC Morphology NOT REPORTED Normal [facility] Comment on above: Performed By: #### C DP, CMPX ####[address] [address] #### TREP, B12FOL ####[address] [address] Comp Metabolic Pr/rfx MGon 0 11-09-2017 Aspartate aminotransferase (AST) 37 U/L High <32 [facility] Comment on above: Performed By: #### C DP, CMPX ####[address] [address] #### TREP, B12FOL ####[address] [address] (cont.) Normal [facility] Comment on above: Result Comment: Aver age GFR for 50-59 years old: 93 mL/min/1.73sq mChronic Kidney Disease: <60 mL/min/1.73sq mKidney failure: <15 mL/min/1.73sq meGFR calculated using average adult body mass. Additional eGFR calculator available at:http://www.[employer].com/multiple_crcl_2012.htmPerformed at [facility] [address] [place] [address] Performed By: #### C DP, CMPX ####[facility] [facility] [address] #### TREP, B12FOL ####[facility] [address] [place] [address] Alanine aminotransferase (ALT) 20 U/L Normal 5-33 [facility] Comment on above: Performed By: #### C DP, CMPX ####[address] [place] [address] #### TREP, B12FOL ####[facility] [address] [place] [address] Albumin 4.2 g/dL Normal 3.5-5.2 [facility] Comment on above: Performed By: #### C DP, CMPX ####[facility] [place] [address] [place] [address] #### TREP, B12FOL ####[facility] [address] [place] [address] Alkaline Phos 21 U/L Low 35-104 [facility] Comment on above: Performed By: #### C DP, CMPX ####[facility] [facility] [address] #### TREP, B12FOL ####[address] [place] [address] Anion gap 12 mmol/L Normal 9-17 [facility] Comment on above: Performed By: #### C DP, CMPX ####[address] [place] [address] #### TREP, B12FOL ####[address] [address] Bilirubin Ql (U) 0.28 mg/dL Low 0.3-1.2 [facility] Comment on above: Performed By: #### C DP, CMPX ####[facility] [place] [address] #### TREP, B12FOL ####[address] [address] Calcium 9.7 mg/dL Normal 8.6-10.4 [facility] Comment on above: Performed By: #### C DP, CMPX ####[facility] [place] [address] #### TREP, B12FOL ####[address] [address] Chloride 105 mmol/L Normal 98-107 [facility] Comment on above: Performed By: #### C DP, CMPX ####[facility] [place] [address] #### TREP, B12FOL ####[address] [address] CO2 26 mmol/L Normal 20-31 [facility] Comment on above: Performed By: #### C DP, CMPX ####[facility] [place] [address] #### TREP, B12FOL ####[address] [address] Creatinine 1.16 mg/dL High 0.50-0.90 [facility] Comment on above: Performed By: #### C DP, CMPX ####[facility] [place] [address] #### TREP, B12FOL ####[address] [address] eGFR (non-black) 48 mL/min/{1.73_m2} Low >60 [facility] Comment on above: Performed By: #### C DP, CMPX ####[facility] [place] [address] #### TREP, B12FOL ####[address] [address] eGFR (non-black) 58 mL/min/{1.73_m2} Low >60 [facility] Comment on above: Performed By: #### C DP, CMPX ####[facility] [place] [address] #### TREP, B12FOL ####[address] [address] Glucose mass conc 131 mg/dL High 70-99 [facility] Comment on above: Performed By: #### C DP, CMPX ####[facility] [place] [address] #### TREP, B12FOL ####[address] [address] Potassium molar conc 3.8 mmol/L Normal 3.7-5.3 [facility] Comment on above: Performed By: #### C DP, CMPX ####[facility] [place] [address] #### TREP, B12FOL ####[address] [place] [address] Protein 6.9 g/dL Normal 6.4-8.3 [facility] Comment on above: Performed By: #### C DP, CMPX ####[facility] [facility] [address] #### TREP, B12FOL ####[facility] [place] [address] Sodium 143 mmol/L Normal 135-144 [facility] Comment on above: Performed By: #### C DP, CMPX ####[facility] [place] [address] [place] [address] #### TREP, B12FOL ####[facility] [place] [address] Urea nitrogen 21 mg/dL High - [facility] Comment on above: Performed By: #### C DP, CMPX ####[facility] [place] [address] [place] [address] #### TREP, B12FOL ####[facility] [place] [address] Albumin/Globulin Ratio NOT REPORTED Normal 1.0-2.5 [facility] Comment on above: Performed By: #### C DP, CMPX ####[facility] [facility] [address] #### TREP, B12FOL ####[facility] [place] [address] BUN/CRE Ratio NOT REPORTED Normal - [facility] Comment on above: Performed By: #### C DP, CMPX ####[facility] [place] [address] [place] [address] #### TREP, B12FOL ####[facility] [place] [address] Staging: NOT REPORTED Normal [facility] Comment on above: Performed By: #### C DP, CMPX ####[address] [address] #### TREP, B12FOL ####[address] [address] T.pallidum Ab Screenon 11-09 T.pallidum Ab Screen NONREACTIVE Normal NR [facility] Comment on above: Result Comment: T. p allidum antibodies are not detected.There is no serological evidence of infection with T. pallidum (early primary syphilis cannot be excluded). Retest in 2-4 weeks if syphilis is clinically suspect.Performed at [address] [address] Performed By: #### C DP, CMPX ####[address] [address] #### TREP, B12FOL ####[address] [address] CBC with Diffon 2017 Abs. Basophil 0.00 k/uL Normal 0.0-0.2 [facility] Comment on above: Result Comment: Perf ormed at [address] [address] Performed By: #### C DP, CP ####[address] [address] #### GLYHGB ####[address] [address] Abs.Neutrophil (Seg) 4.20 k/uL Normal 1.3-9.1 [facility] Comment on above: Performed By: #### C DP, CP ####[address] [address] #### GLYHGB ####[facility] [place] [address] Basophils/100 WBC Auto (Bld) 1 % Normal 0-2 [facility] Comment on above: Performed By: #### C DP, CP ####[facility] [place] [address] #### GLYHGB ####[address] [address] Eosinophils 0.10 10*3/uL Normal 0.0-0.4 [facility] Comment on above: Performed By: #### C DP, CP ####[address] [address] #### GLYHGB ####[address] [address] Eosinophils/100 leukocytes 2 % Normal 0-4 [facility] Comment on above: Performed By: #### C DP, CP ####[address] [address] #### GLYHGB ####[address] [address] Erythrocyte distribution width Auto Ratio (RBC) 13.8 % Normal 11.5-14.9 [facility] Comment on above: Performed By: #### C DP, CP ####[facility] [place] [address] #### GLYHGB ####[address] [address] Erythrocytes (RBC) 4.27 10*6/uL Normal 4.0-5.2 [facility] Comment on above: Performed By: #### C DP, CP ####[address] [place] [address] #### GLYHGB ####[address] [address] Hematocrit (HCT) 40.3 % Normal 36-46 [facility] Comment on above: Performed By: #### C DP, CP ####[address] [address] #### GLYHGB ####[address] [address] Hemoglobin mass conc (Bld) 13.8 g/dL Normal 12.0-16.0 [facility] Comment on above: Performed By: #### C DP, CP ####[address] [address] #### GLYHGB ####[address] [address] Lymphocytes 2.00 10*3/uL Normal 1.0-4.8 [facility] Comment on above: Performed By: #### C DP, CP ####[address] [address] #### GLYHGB ####[address] [address] Lymphocytes/100 leukocytes 29 % Normal 24-44 [facility] Comment on above: Performed By: #### C DP, CP ####[address] [address] #### GLYHGB ####[address] [address] MCH 32.4 pg Normal 26-34 [facility] Comment on above: Performed By: #### C DP, CP ####[address] [place] [address] #### GLYHGB ####[address] [place] [address] MCHC mass conc (RBC) 34.3 g/dL Normal 31-37 [facility] Comment on above: Performed By: #### C DP, CP ####[address] [address] #### GLYHGB ####[address] [address] MCV 94.4 fL Normal 80-100 [facility] Comment on above: Performed By: #### C DP, CP ####[address] [address] #### GLYHGB ####[address] [address] Monocytes 0.80 10*3/uL Normal 0.1-1.3 [facility] Comment on above: Performed By: #### C DP, CP ####[address] [address] #### GLYHGB ####[address] [address] Monocytes/100 leukocytes 11 % High 1-7 [facility] Comment on above: Performed By: #### C DP, CP ####[address] [address] #### GLYHGB ####[address] [place] [address] Neutrophil (Seg) 57 % Normal 36-66 [facility] Comment on above: Performed By: #### C DP, CP ####[address] [address] #### GLYHGB ####[facility] [place] [address] Platelet mean volume (PMV) 8.6 fL Normal 6.0-12.0 [facility] Comment on above: Performed By: #### C DP, CP ####[facility] [place] [address] #### GLYHGB ####[address] [address] Platelets 234 10*3/uL Normal 150-450 [facility] Comment on above: Performed By: #### C DP, CP ####[address] [address] #### GLYHGB ####[address] [address] WBC (Leukocytes) 7.1 10*3/uL Normal 3.5-11.0 [facility] Comment on above: Performed By: #### C DP, CP ####[address] [address] #### GLYHGB ####[address] [address] Auto Diff Performed NOT REPORTED Normal [facility] Comment on above: Performed By: #### C DP, CP ####[facility] [place] [address] #### GLYHGB ####[address] [place] [address] Erythrocyte morphology NOT REPORTED Normal [facility] Comment on above: Performed By: #### C DP, CP ####[address] [address] #### GLYHGB ####[address] [place] [address] Erythrocytes (RBC) NOT REPORTED Normal [facility] Comment on above: Performed By: #### C DP, CP ####[facility] [place] [address] #### GLYHGB ####[address] [place] [address] Granulocytes/100 WBC (Bld) NOT REPORTED Normal 0.00-0.30 [facility] Comment on above: Performed By: #### C DP, CP ####[facility] [place] [address] [place] [address] #### GLYHGB ####[address] [address] Immature granulocytes #/vol (Bld) NOT REPORTED Normal 0 [facility] Comment on above: Performed By: #### C DP, CP ####[facility] [place] [address] [place] [address] #### GLYHGB ####[address] [address] Platelets NOT REPORTED Normal [facility] Comment on above: Performed By: #### C DP, CP ####[facility] [place] [address] [place] [address] #### GLYHGB ####[address] [place] [address] WBC Morphology NOT REPORTED Normal [facility] Comment on above: Performed By: #### C DP, CP ####[facility] [place] [address] [place] [address] #### GLYHGB ####[address] [address] Comp Metabolic Profon 2017 (cont.) Normal [facility] Comment on above: Result Comment: Aver age GFR for 50-59 years old: 93 mL/min/1.73sq mChronic Kidney Disease: <60 mL/min/1.73sq mKidney failure: <15 mL/min/1.73sq meGFR calculated using average adult body mass. Additional eGFR calculator available at:http://[email or web address] at [facility] [address] [place] [address] Performed By: #### C DP, CP ####[facility] [place] [address] #### GLYHGB ####[facility] [place] [address] Alanine aminotransferase (ALT) 13 U/L Normal 5-33 [facility] Comment on above: Performed By: #### C DP, CP ####[facility] [place] [address] #### GLYHGB ####[facility] [address] [place] [address] Albumin 4.2 g/dL Normal 3.5-5.2 [facility] Comment on above: Performed By: #### C DP, CP ####[facility] [place] [address] #### GLYHGB ####[facility] [address] [place] [address] Alkaline Phos 23 U/L Low 35-104 [facility] Comment on above: Performed By: #### C DP, CP ####[facility] [place] [address] #### GLYHGB ####[facility] [place] [address] Anion gap 12 mmol/L Normal 9-17 [facility] Comment on above: Performed By: #### C DP, CP ####[facility] [place] [address] #### GLYHGB ####[address] [place] [address] Aspartate aminotransferase (AST) 17 U/L Normal <32 [facility] Comment on above: Performed By: #### C DP, CP ####[facility] [place] [address] [place] [address] #### GLYHGB ####[address] [address] Bilirubin Ql (U) 0.36 mg/dL Normal 0.3-1.2 [facility] Comment on above: Performed By: #### C DP, CP ####[facility] [place] [address] #### GLYHGB ####[address] [address] Calcium 9.9 mg/dL Normal 8.6-10.4 [facility] Comment on above: Performed By: #### C DP, CP ####[facility] [place] [address] [place] [address] #### GLYHGB ####[address] [place] [address] Chloride 102 mmol/L Normal 98-107 [facility] Comment on above: Performed By: #### C DP, CP ####[facility] [place] [address] [place] [address] #### GLYHGB ####[facility] [place] [address] CO2 27 mmol/L Normal 20-31 [facility] Comment on above: Performed By: #### C DP, CP ####[facility] [place] [address] #### GLYHGB ####[address] [place] [address] Creatinine 1.00 mg/dL High 0.50-0.90 [facility] Comment on above: Performed By: #### C DP, CP ####[facility] [place] [address] #### GLYHGB ####[address] [address] eGFR (non-black) mL/min/{1.73_m2} Normal >60 [facility] Comment on above: Performed By: #### C DP, CP ####[facility] [place] [address] #### GLYHGB ####[address] [address] eGFR (non-black) 57 mL/min/{1.73_m2} Low >60 [facility] Comment on above: Performed By: #### C DP, CP ####[facility] [place] [address] [place] [address] #### GLYHGB ####[facility] [place] [address] Glucose mass conc 95 mg/dL Normal 70-99 [facility] Comment on above: Performed By: #### C DP, CP ####[facility] [place] [address] #### GLYHGB ####[facility] [place] [address] Potassium molar conc 4.3 mmol/L Normal 3.7-5.3 [facility] Comment on above: Performed By: #### C DP, CP ####[facility] [place] [address] #### GLYHGB ####[address] [address] Protein 6.8 g/dL Normal 6.4-8.3 [facility] Comment on above: Performed By: #### C DP, CP ####[facility] [place] [address] #### GLYHGB ####[address] [address] Sodium 141 mmol/L Normal 135-144 [facility] Comment on above: Performed By: #### C DP, CP ####[facility] [place] [address] #### GLYHGB ####[address] [address] Urea nitrogen 21 mg/dL High 6-20 [facility] Comment on above: Performed By: #### C DP, CP ####[facility] [place] [address] #### GLYHGB ####[facility] [place] [address] Albumin/Globulin Ratio NOT REPORTED Normal 1.0-2.5 [facility] Comment on above: Performed By: #### C DP, CP ####[facility] [place] [address] #### GLYHGB ####[address] [address] BUN/CRE Ratio NOT REPORTED Normal 9-20 [facility] Comment on above: Performed By: #### C DP, CP ####[facility] [place] [address] #### GLYHGB ####[address] [address] Staging: NOT REPORTED Normal [facility] Comment on above: Performed By: #### C DP, CP ####[address] [address] #### GLYHGB ####[address] [address] Hemoglobin A1Con 2017 Glucose mass conc 94 mg/dL Normal [facility] Comment on above: Result Comment: The ADA and AACC recommend providing the estimated average glucose result to permit better patient understanding of their HBA1c result.Performed at [id number] [place] [address] Performed By: #### C DP, CP ####[facility] [place] [address] #### GLYHGB ####[address] [address] Hemoglobin A1c/Hemoglobin.total mass fraction (Bld) 4.9 % Normal 4.0-6.0 [facility] Comment on above: Performed By: #### C DP, CP ####[facility] [place] [address] #### GLYHGB ####[address] [address] Valproic Acidon 11-01-2017 Valproic Acid 56 ug/mL Normal 50-125 [facility] Comment on above: Performed By: #### V ALPC ####[facility] [facility] [address] Date last dose, 322745 Normal [facility] Comment on above: Performed By: #### V ALPC ####[facility] [place] [address] Dose amount 500 Normal [facility] Comment on above: Performed By: #### V ALPC ####[facility] [place] [address] Time last dose, 0842 Normal [facility] Comment on above: Result Comment: Perf ormed at [facility] [address] [place] [address] Performed By: #### V ALPC ####[facility] [place] [address] Vital Signs Date Time Vital Sign Value Performing Clinician Facility 10-08-2023 18:48-0400 Body mass index (BMI) [Ratio] 29.26 kg/m2 Rylie Griffin DO Work Phone: [facility] 10-08-2023 18:48-0400 Body temperature 98.4 [degF] Rylie Griffin DO Work Phone: [employer] [facility] 10-08-2023 18:48-0400 Body weight 72.58 kg Rylie Griffin DO Work Phone: [facility] [employer] 10-08-2023 18:48-0400 Diastolic blood pressure 97 mm[Hg] Rylie Griffin DO Work Phone: [employer] 10-08-2023 18:48-0400 Heart rate 58 /min Rylie Griffin DO Work Phone: [employer] 10-08-2023 18:48-0400 Respiratory rate 18 /min Rylie Griffin DO Work Phone: [facility] 10-08-2023 18:48-0400 SaO2% (BldA) [Mass fraction] 99 % Rylie Griffin DO Work Phone: [facility] 10-08-2023 18:48-0400 Systolic blood pressure 149 mm[Hg] Rylie Griffin DO Work Phone: [facility] 09-19-2023 16:34-0400 Body height 160.02 cm [facility] 09-19-2023 16:34-0400 Body mass index (BMI) [Ratio] 27.1 kg/m2 [facility] 09-19-2023 16:34-0400 Body temperature 96.6 [degF] [facility] 09-19-2023 16:34-0400 Body weight 69.39 kg [facility] 09-19-2023 16:34-0400 Heart rate 72 /min [facility] 09-19-2023 16:34-0400 Respiratory rate 16 /min [facility] 09-19-2023 16:34-0400 SaO2% (BldA) [Mass fraction] 100 % [facility] 09-05-2023 15:00-0400 Body height 160 cm Radha Penaloza APRN-ANTHROPOLOGY DEPARTMENT CHAIR Work Phone: [facility] 09-05-2023 15:00-0400 Body mass index (BMI) [Ratio] 27.32 kg/m2 Radha Tremaine HON-ANTHROPOLOGY DEPARTMENT CHAIR Work Phone: [facility] 09-05-2023 15:00-0400 Body weight 69.94 kg Radha Penaloza APRN-ANTHROPOLOGY DEPARTMENT CHAIR Work Phone: [facility] 09-05-2023 15:00-0400 Diastolic blood pressure 94 mm[Hg] Radha Penaloza APRN-ANTHROPOLOGY DEPARTMENT CHAIR Work Phone: [facility] 09-05-2023 15:00-0400 Heart rate 135 /min Radha Penaloza APRN-ANTHROPOLOGY DEPARTMENT CHAIR Work Phone: [facility] 09-05-2023 15:00-0400 Systolic blood pressure 155 mm[Hg] Radha Penaloza APPLE-ANTHROPOLOGY DEPARTMENT CHAIR Work Phone: [facility] 07-06-2023 09:30-0500 Body height 160.02 cm Santa Augustin Other [facility] 07-06-2023 09:30-0500 Body mass index (BMI) [Ratio] 26.75 kg/m2 Santa Augustin Other [employer] Other 07-06-2023 09:30-0500 Body weight 68.49 kg Santa Augustin Other [facility] 07-06-2023 09:30-0500 Diastolic blood pressure 85 mm[Hg] Santa Augustin Other [facility] 07-06-2023 09:30-0500 Systolic blood pressure 129 mm[Hg] Santa Augustin Other [facility] 03-23-2023 16:40-0400 Body height 160.02 cm Zachary Maria Dolores Other [employer] Other 03-23-2023 16:40-0400 Body mass index (BMI) [Ratio] 26.92 kg/m2 Zachary Maria Dolores Other [employer] Other 03-23-2023 16:40-0400 Body temperature 97.4 [degF] Zachary Maria Dolores Other [employer] Other 03-23-2023 16:40-0400 Body weight 68.95 kg Zachary Maria Dolores Other [employer] Other 03-23-2023 16:40-0400 Diastolic blood pressure 78 mm[Hg] Zachary Maria Dolores Other [employer] Other 03-23-2023 16:40-0400 Respiratory rate 18 /min Zachary Maria Dolores Other [employer] Other 03-23-2023 16:40-0400 SaO2% (BldA) [Mass fraction] 96 % Zachary Maria Dolores Other [employer] Other 03-23-2023 16:40-0400 Systolic blood pressure 113 mm[Hg] Zachary Maria Dolores Other [employer] Other 01-20-2023 15:15-0400 Body height 160.02 cm Santa Augustin Other [employer] Other 01-20-2023 15:15-0400 Body mass index (BMI) [Ratio] 26.21 kg/m2 Santa Augustin Other [employer] Other 01-20-2023 15:15-0400 Body weight 67.13 kg Santa Augustin Other [employer] Other 01-20-2023 15:15-0400 Diastolic blood pressure 78 mm[Hg] Santa Augustin Other [employer] Other 01-20-2023 15:15-0400 Systolic blood pressure 116 mm[Hg] Snata Augustin Other [employer] Other 11-16-2022 14:40-0400 Body height 160.02 cm Zachary Maria Dolores Other [employer] Other 11-16-2022 14:40-0400 Body mass index (BMI) [Ratio] 27.77 kg/m2 Zachary Maria Dolores Other [employer] Other 11-16-2022 14:40-0400 Body temperature 96.7 [degF] Zachary Maria Dolores Other [employer] Other 11-16-2022 14:40-0400 Body weight 71.12 kg Zachary Maria Dolores Other [employer] Other 11-16-2022 14:40-0400 Diastolic blood pressure 69 mm[Hg] Zachary Maria Dolores Other [employer] Other 11-16-2022 14:40-0400 Respiratory rate 18 /min Zachary Maria Dolores Other [employer] Other 11-16-2022 14:40-0400 SaO2% (BldA) [Mass fraction] 99 % Zachary Maria Dolores Other [employer] Other 11-16-2022 14:40-0400 Systolic blood pressure 108 mm[Hg] Zachary Maria Dolores Other [employer] Other 05-06-2022 10:40-0500 Body height 160.02 cm Zachary Maria Dolores Other [employer] Other 05-06-2022 10:40-0500 Body mass index (BMI) [Ratio] 27.42 kg/m2 Zachary Maria Dolores Other [employer] Other 05-06-2022 10:40-0500 Body weight 70.22 kg Zachary Maria Dolores Other [employer] Other 05-06-2022 10:40-0500 Diastolic blood pressure 54 mm[Hg] Zachary Maria Dolores Other [employer] Other 05-06-2022 10:40-0500 Respiratory rate 18 /min Zachary Maria Dolores Other [employer] Other 05-06-2022 10:40-0500 SaO2% (BldA) [Mass fraction] 99 % Zachary Maria Dolores Other [employer] Other 05-06-2022 10:40-0500 Systolic blood pressure 122 mm[Hg] Zachary Maria Dolores Other [employer] Other 03-23-2022 07:30-0400 Body temperature 97.9 [degF] MD Santa Augustin Work Phone: [facility] 03-23-2022 07:30-0400 Diastolic blood pressure 90 mm[Hg] MD Santa Augustin Work Phone: [facility] 03-23-2022 07:30-0400 Heart rate 90 /min MD Santa Augustin Work Phone: [facility] 03-23-2022 07:30-0400 SaO2% (BldA) [Mass fraction] 97 % MD Santa Augustin Work Phone: [facility] 03-23-2022 07:30-0400 Systolic blood pressure 133 mm[Hg] MD Santa Augustin Work Phone: [facility] 03-22-2022 22:24-0400 Respiratory rate 16 /min MD Santa Augustin Work Phone: [facility] 03-22-2022 09:00-0400 Body weight 73.93 kg MD Santa Augustin Work Phone: [facility] 03-18-2022 09:21-0400 Body height 160.02 cm MD Santa Augustin Work Phone: [facility] 03-11-2022 23:31-0400 Body temperature 97.2 [degF] MD Santa Augustin Work Phone: [facility] 03-11-2022 23:31-0400 Diastolic blood pressure 95 mm[Hg] MD Santa Augustin Work Phone: [facility] 03-11-2022 23:31-0400 Heart rate 76 /min MD Santa Augustin Work Phone: [facility] 03-11-2022 23:31-0400 Respiratory rate 18 /min MD Santa Augustin Work Phone: [facility] 03-11-2022 23:31-0400 SaO2% (BldA) [Mass fraction] 100 % MD Santa Augustin Work Phone: [facility] 03-11-2022 23:31-0400 Systolic blood pressure 187 mm[Hg] MD Santa Augustin Work Phone: [facility] 03-11-2022 18:16-0400 Body height 160.02 cm MD Santa Augustin Work Phone: [facility] 03-11-2022 18:16-0400 Body weight 72 kg MD Santa Augustin Work Phone: [facility] 09-14-2021 15:34-0400 Body height 160 cm Juan Adames MD Work Phone: [facility] 09-14-2021 15:34-0400 Body mass index (BMI) [Ratio] 27.63 kg/m2 Juan Adames MD Work Phone: [facility] 09-14-2021 15:34-0400 Body weight 70.76 kg Juan Adames MD Work Phone: [facility] 09-14-2021 15:34-0400 Diastolic blood pressure 86 mm[Hg] Juan Adames MD Work Phone: [facility] 09-14-2021 15:34-0400 Heart rate 69 /min Juan Adames MD Work Phone: [facility] 09-14-2021 15:34-0400 Respiratory rate 16 /min Juan Adames MD Work Phone: [facility] 09-14-2021 15:34-0400 SaO2% (BldA) [Mass fraction] 97 % Juan Adames MD Work Phone: [facility] 09-14-2021 15:34-0400 Systolic blood pressure 132 mm[Hg] Juan Adames MD Work Phone: [facility] 05-06-2021 16:25-0500 Body height 160.02 cm Geneva Heena Other [employer] Other 05-06-2021 16:25-0500 Body mass index (BMI) [Ratio] 29.05 kg/m2 Geneva Heena Other [employer] Other 05-06-2021 16:25-0500 Body temperature 98.6 [degF] Geneva Heena Other [employer] Other 05-06-2021 16:25-0500 Body weight 74.39 kg Geneva Heena Other [employer] Other 05-06-2021 16:25-0500 Diastolic blood pressure 90 mm[Hg] Geneva Heena Other [employer] Other 05-06-2021 16:25-0500 Respiratory rate 18 /min Geneva Heena Other [employer] Other 05-06-2021 16:25-0500 SaO2% (BldA) [Mass fraction] 100 % Geneva Heena Other [employer] Other 05-06-2021 16:25-0500 Systolic blood pressure 142 mm[Hg] Geneva Naik Other [employer] Other 04-01-2021 16:40-0400 Body height 160.02 cm Zachary Maria Dolores Other [employer] Other 04-01-2021 16:40-0400 Body mass index (BMI) [Ratio] 29.37 kg/m2 Zachary Maria Dolores Other [employer] Other 04-01-2021 16:40-0400 Body temperature 97.1 [degF] Zachary Maria Dolores Other [employer] Other 04-01-2021 16:40-0400 Body weight 75.21 kg Zachary Maria Dolores Other [employer] Other 04-01-2021 16:40-0400 Diastolic blood pressure 82 mm[Hg] Zachary Maria Dolores Other [employer] Other 04-01-2021 16:40-0400 Respiratory rate 18 /min Zachary Maria Dolores Other [employer] Other 04-01-2021 16:40-0400 SaO2% (BldA) [Mass fraction] 98 % Zachary Maria Dolores Other [employer] Other 04-01-2021 16:40-0400 Systolic blood pressure 116 mm[Hg] Zachary Maria Dolores Other [employer] Other 08-22-2020 14:30-0400 BMI (Body Mass Index) 26.57 kg/m2 Upender [facility] 08-22-2020 14:30-0400 Body weight 68.04 kg Upender Gehlot [facility] 08-22-2020 14:30-0400 Height 160 cm Upender [facility] Encounters Encounter Date Encounter Type Care Provider Facility Start: 02-10-2024 End: 02-10-2024 ambulatory DIPAK Fried APLING Not Available Start: 01-30-2024 End: 01-30-2024 ambulatory DIPAK B APLING Not Available Start: 12-28-2023 End: 12-28-2023 ambulatory DIPAK B APLING Not Available Start: 11-30-2023 End: 11-30-2023 ambulatory DIPAK B APLING Not Available Start: 11-07-2023 End: 11-07-2023 ambulatory DIPAK B APLING Not Available Start: 10-19-2023 End: 10-19-2023 ambulatory DIPAK B APLING Not Available Start: 10-10-2023 End: 10-10-2023 ambulatory DIPAK B APLING Not Available Start: 10-09-2023 ambulatory [place] [facility] Start: 10-08-2023 End: 10-08-2023 Emergency department patient visit [place] [facility] Start: 10-08-2023 End: 10-08-2023 Emergency department patient visit Rylie Griffin DO Work Phone: [facility] Comment on above: Closed fracture of r ight wrist, initial encounter (Primary Dx) Start: 09-19-2023 End: 09-19-2023 ambulatory [facility] Work Phone: Start: 09-19-2023 End: 09-19-2023 Patient encounter procedure [facility] Nephrology Work Phone: Start: 09-05-2023 End: 09-05-2023 ambulatory RADHAJUAN MIGUEL PENALOZA [facility] Start: 09-05-2023 End: 09-05-2023 Office outpatient visit 15 minutes Radha Penaloza [employer] IN[employer]ER AND REPAIRER-ANTHROPOLOGY DEPARTMENT CHAIR Work Phone: [facility] Comment on above: Chronic constipation (Primary Dx) Start: 08-29-2023 [facility]-patient [facility] Work Phone: Start: 07-06-2023 End: 07-06-2023 ambulatory Santa Augustin Other [employer] Other Start: 07-06-2023 Encounter for genera l adult medical examination without abnormal findings Santa Augustin [facility] Start: 07-06-2023 Periodic preventive med est patient 40-64yrs Santa Augustin [facility] Start: 07-06-2023 End: 07-06-2023 Patient encounter procedure [facility]- Start: 03-23-2023 End: 03-23-2023 ambulatory Zachary Maria Dolores Other [employer] Other Start: 03-23-2023 Office outpatient vi sit 15 minutes Zachary Maria Dolores [facility] Nephrology Start: 01-20-2023 End: 01-20-2023 ambulatory Santa Augustin Other [employer] Other Start: 01-20-2023 Office outpatient vi sit 15 minutes Santa Augustin [facility] Start: 11-16-2022 End: 11-16-2022 ambulatory Zachary Maria Dolores Other [employer] Other Start: 11-16-2022 Office outpatient vi sit 25 minutes Zachary Maria Dolores [facility] Nephrology Start: 06-21-2022 End: 06-21-2022 ambulatory [place] [facility] Start: 06-21-2022 End: 06-21-2022 Office outpatient visit 15 minutes Juan Adames MD Work Phone: [facility] Comment on above: KALEN (generalized anx iety disorder) Start: 05-26-2022 End: 05-27-2022 ambulatory JUAN ADAMES Facility:[facility]1 Start: 05-14-2022 ambulatory [place] [facility] Start: 05-08-2022 End: 05-09-[address] [place] Facility:[facility] Start: 05-06-2022 End: 05-06-2022 ambulatory Zachary Maria Dolores Other [employer] Other Start: 05-06-2022 Office outpatient vi sit 15 minutes Zacharyemanuel Mezar [facility] Start: 04-26-2022 End: 04-26-2022 [facility] Start: 04-26-2022 End: 04-26-2022 Phys/qhp telephone evaluation 11-20 min Juan Adames MD Work Phone: [facility] Comment on above: Long-term use of hig h-risk medication (Primary Dx); Bipolar affective disorder, manic, severe, with psychotic behavior (HCC) Start: 04-20-2022 End: 04-20-2022 ambulatory Zachary Mezar Other [employer] Other Start: 04-20-2022 Telephone encounter Kp [facility] Start: 04-19-2022 End: 04-19-2022 [facility] Start: 04-19-2022 End: 04-19-2022 Office outpatient visit 25 minutes Juan Adames MD Work Phone: [facility] Comment on above: Bipolar affective di sorder, manic, severe, with psychotic behavior (HCC) (Primary Dx); KALEN (generalized anxiety disorder) Start: 04-08-2022 End: 04-09-[address] DENTON DELGADO Facility: Start: 03-31-2022 Adult health examination [place] Other [employer] Other Start: 03-31-2022 Problem, abnormal examination Santa Augustin Other [employer] Other Start: 03-24-2022 ambulatory [place] [facility] Start: 03-12-2022 End: 03-23-2022 Evaluation and management of inpatient Marco A Zaman Facility:[facility] Start: 03-11-2022 End: 03-23-2022 Evaluation and management of inpatient MD Santa Augustin Work Phone: [facility] Start: 02-12-2022 End: 02-12-2022 ambulatory [place] [facility] Start: 02-12-2022 End: 02-12-2022 Phys/qhp telephone evaluation 11-20 min Juan Adames MD Work Phone: [facility] Comment on above: Bipolar 1 disorder, manic, moderate (HCC) (Primary Dx); Anxiety Start: 02-09-2022 Orders Only Juan Adames MD Work Phone: [facility] Start: 01-22-2022 End: 01-23-2022 ambulatory JUAN ADAMES Facility:[facility] Start: 01-18-2022 End: 01-18-2022 ambulatory [place] [facility] Start: 12-10-2021 End: 12-10-2021 ambulatory Zachary Maria Dolores Other [employer] Other Start: 12-10-2021 Telephone encounter Zachary Maria Dolores [facility] Start: 12-07-2021 End: 12-07-2021 ambulatory ROSMERY TAVARES . Facility:[facility] Start: 12-05-2021 End: 12-06-2021 ambulatory JUAN ADAMES Facility:[facility] Start: 11-19-2021 Documentation procedure Delmy Adames MD Work Phone: [facility] Start: 11-17-2021 End: 11-17-2021 ambulatory Zachary Maria Dolores Other [employer] Other Start: 11-17-2021 Telephone encounter Zachary Maria Dolores [facility] Ben Start: 09-21-2021 End: 09-22-[address] [place] Facility:[facility] Start: 09-14-2021 End: 09-14-2021 ambulatory [place] [facility] Start: 09-14-2021 End: 09-14-2021 Office outpatient visit 25 minutes Juan Adames MD Work Phone: [facility] Comment on above: KALEN (generalized anx iety disorder) (Primary Dx); Bipolar 1 disorder, manic, mild (HCC); Long-term use of high-risk medication; Anxiety Start: 08-25-2021 Orders Only Yuni Khan Gr und ANTHROPOLOGY DEPARTMENT CHAIR Work Phone: [facility] Comment on above: Anxiety (Primary Dx) KALEN (generalized anx iety disorder) Start: 08-21-2021 Refill Ebony Black LPN [facility] Comment on above: KALEN (generalized anx iety disorder) Start: 05-21-2021 Refill Ami Vamsi VELASQUEZ [facility] Comment on above: KALEN (generalized anx iety disorder) Start: 05-06-2021 End: 05-06-2021 ambulatory Geneva Naik [employer] Other Start: 05-06-2021 Office outpatient vi sit 15 minutes Geneva Naik [facility] Ben Start: 04-01-2021 Office outpatient vi sit 15 minutes Zachary Pascual [facility] Nephrology Start: 02-13-2021 End: 02-13-2021 Office outpatient visit 25 minutes Juan Adames MD Work Phone: [facility] Comment on above: KALEN (generalized anx iety disorder) Start: 01-27-2021 Documentation procedure Fred Tenorio LPN [facility] Start: 08-22-2020 End: 08-22-2020 Phys/qhp telephone evaluation 21-30 min Juan Adames Work Phone: [facility] Comment on above: Bipolar 1 disorder, manic, mild (HCC) (Primary Dx); KALEN (Generalized Anxiety Disorder); Long-term use of high-risk medication Start: 07-14-2020 End: 07-14-2020 Refill Juan Adames Work Phone: [facility] Comment on above: KALEN (Generalized Anx iety Disorder) (Primary Dx) Start: 10-26-2017 End: 11-22-2017 Evaluation and management of inpatient [place] [facility] Procedures Date Procedure Procedure Detail Performing Clinician Start: 10-08-2023 Radex wrist complete minimum 3 views Carrie Shipley [employer] INSTALLER AND REPAIRER - ANTHROPOLOGY DEPARTMENT CHAIR Work Phone: Start: 09-07-2021 Colonoscopy Upender Manuel rodrigues MD Work Phone: Start: 11-11-2020 Mammography Upender Manuel rodrigues MD Work Phone: Start: 10-29-2020 Mammography Heidi portillo MOHEL Start: 11-22-2017 DISCHARGE PATIENT [place] DEMETRIA Start: 11-20-2017 VALPROIC ACID LEVEL, TOTAL [place] Start: 11-15-2017 Mri brain brain stem w/o contrast material [place] Start: 11-15-2017 Blood count complete auto&auto difrntl wbc [place] Start: 11-15-2017 Comprehensive metabo lic panel [place] Start: 11-09-2017 AMMONIA [facility] [facility] Start: 11-09-2017 Blood count complete auto&auto difrntl wbc [place] Start: 11-09-2017 COMPREHENSIVE METABO LIC PANEL W/ REFLEX TO MG FOR LOW K [place] Start: 11-09-2017 T. PALLIDUM AB [facility] [facility] RAUN Start: 11-09-2017 VITAMIN B12 AND FOLATE [place] Start: 11-09-2017 C.TRACHOMATIS N.GONO RRHOEAE DNA, URINE [place] Start: 11-08-2017 IP CONSULT TO AUGER MACHINE OFFBEARER AL MEDICINE [place] Start: 11-08-2017 MISCELLANEOUS NURSIN G CARE ORDER (SPECIFY) [place] Start: 2017 Blood count complete auto&auto difrntl wbc [place] Start: 2017 Comprehensive metabo lic panel [place] Start: 2017 Hemoglobin glycosylated a1c [place] Start: 11-03-2017 PT EVAL AND TREAT [place] DMEETRIA Start: 11-01-2017 VALPROIC ACID LEVEL, TOTAL [place] Start: 10-26-2017 DIET GENERAL [facility] [facility] Start: 10-26-2017 FULL CODE [place] [facility] Start: 10-26-2017 SUICIDE PRECAUTIONS [facility] [facility] Start: 10-26-2017 TOBACCO CESSATION EDUCATION [place] Start: 10-26-2017 VITAL SIGNS [facility] [facility] [...] Screening for malign ant neoplasm of colon [facility] Start: 05-31-2029 DTaP,Tdap and Td Vaccines (2 - Td or Tdap) DTaP,Tdap and Td Vaccines (2 - Td or Tdap) [facility] Start: 05-31-2029 DTaP/Tdap/Td vaccine (2 - Td or Tdap) DTaP/Tdap/Td vaccine (2 - Td or Tdap) [facility] Start: 05-31-2029 Tetanus vaccination Tetanus: Every 1 0yrs [facility] Start: 09-07-2024 Screening for malign ant neoplasm of colon Colonoscopy [facility] Start: 09-04-2024 Adult BMI Screening Adult BMI Screen ing [facility] Start: 09-04-2024 Tobacco Screening Tobacco Screening [facility] Start: 02-05-2024 Influenza vaccination Influenza Vacc ine [facility] Start: 10-29-2022 Screening for malign ant neoplasm of breast Breast cancer screen [facility] Start: 05-03-2022 End: 04-26-2023 [place] [Moles/volume] in Serum or Plasma [place] Level Lab Routine Long-term use of high-risk medication Bipolar affective disorder, manic, severe, with psychotic behavior (HCC) Expected: 05/03/2022, Expires: 04/26/2023 [facility] Work Phone: Comment on above: Expected: 05/03/2022 , Expires: 04/26/2023 Start: 04-26-2022 End: 04-26-2022 Telemedicine consultation with patient 04/26/2022 Telemedicine Telephone Psychiatry Juan Adames MD [address] [place] [address] [facility] Start: 03-23-2022 [facility] Start: 03-12-2022 Hospital admission [facility] Start: 03-12-2022 Vitamin D, 25-hydrox y measurement [facility] Start: 03-12-2022 [facility] Start: 02-12-2022 End: 02-12-2022 Telemedicine consultation with patient 02/12/2022 Telemedicine Telephone Psychiatry Juan Adames MD [address] [place] [id number] [facility] Start: 02-04-2022 Influenza vaccination Sequenti al Influenza Vaccine (#1) [facility] Start: 01-15-2022 End: 01-15-2022 Patient encounter procedure 01/15/2022 Office Visit Juan Chavez MD [address] [facility] [address] [place] [id number] [facility] Start: 01-05-2022 COVID-19 Vaccine (5 - Booster for Pfizer series) COVID-19 Vaccine (5 - Booster for Pfizer series) [facility] Start: 12-08-2021 End: 12-08-2021 Patient encounter procedure 12/08/2021 Office Visit Juan Chavez MD [address] [facility] [address] [place] [id number] [facility] Start: 11-11-2021 Screening for malign ant neoplasm of breast Mammogram [facility] Start: 10-29-2021 Screening for malign ant neoplasm of breast Mammogram [facility] Start: 09-26-2021 History and physical examination, annual for health maintenance Wellness Visit [facility] Start: 09-14-2021 End: 09-14-2021 Patient encounter procedure 09/14/2021 Office Visit Juan Chavez MD [address] [facility] [address] [place] [id number] [facility] Start: 09-07-2021 COVID-19 Vaccine (4 - Booster for Pfizer series) COVID-19 Vaccine (4 - Booster for Pfizer series) [facility] Start: 03-11-2021 COVID-19 Vaccine (3 - Booster for Pfizer series) COVID-19 Vaccine (3 - Booster for Pfizer series) [facility] Start: 02-13-2021 End: 02-13-2021 Patient encounter procedure 02/13/2021 Office Visit Psychiatry Juan Adames MD [address] [place] [address] [facility] Start: 02-09-2021 COVID-19 Vaccine (3 - Booster for Pfizer series) COVID-19 Vaccine (3 - Booster for Pfizer series) [facility] Start: 02-04-2021 Influenza vaccination Sequenti al Influenza Vaccine (#1) [facility] Start: 11-24-2020 End: 11-24-2020 Office Visit 11/24/2020 Office Visit Psychiatry Juan Adames MD [address] [place] [address] [phone] [facility] Start: 09-22-2020 End: 09-22-2020 [place] [Moles/Vol] [place] Level Lab Routine Bipolar 1 disorder, manic, mild (HCC) KALEN (Generalized Anxiety Disorder) Long-term use of high-risk medication Expected: 09/22/2020, Expires: 09/22/2020 [facility] Comment on above: Expected: 09/22/2020 , Expires: 09/22/2020 Start: 09-22-2020 End: 09-22-2020 Urinalysis Urinalysis Lab Routine Bipolar 1 disorder, manic, mild (HCC) KALEN (Generalized Anxiety Disorder) Long-term use of high-risk medication Expected: 09/22/2020, Expires: 09/22/2020 [facility] Comment on above: Expected: 09/22/2020 , Expires: 09/22/2020 Start: 09-08-2020 COVID-19 Vaccine (2 - Pfizer 2-dose series) COVID-19 Vaccine (2 - Pfizer 2-dose series) [facility] Start: 08-22-2020 End: 08-22-2020 Office Visit 08/22/2020 Office Visit Psychiatry Juan Adames MD [address] [place] [address] [phone] [facility] Start: 02-05-2020 Influenza vaccinatio n given Sequential Influenza Vaccine (#1) [facility] Start: 2019 Respiratory Syncytia l Virus (RSV) or age 60 yrs+ (1 - 1-dose 60+ series) Respiratory Syncytial Virus (RSV) or age 60 yrs+ (1 - 1-dose 60+ series) [facility] Start: 08-23-2015 Administration of he rpes zoster vaccine Zoster Vaccines (2 of 3) [facility] Start: 11-03-2009 Administration of he rpes zoster vaccine Zoster Vaccines (1 of 2) [facility] Start: 11-03-2009 Screening for malign ant neoplasm of colon [facility] Start: 11-03-2004 Screening for malign ant neoplasm of colon [facility] Start: 1999 Lipid panel Lipids [facility] Start: 11-03-1989 Screening for malign ant neoplasm of cervix [facility] Start: 11-03-1980 Screening for malign ant neoplasm of cervix Pap smear [facility] Start: 11-03-1977 Adult BMI Follow Up Plan Adult BMI Follow Up Plan [facility] Start: 11-03-1977 Hepatitis C antibody , confirmatory test Hepatitis C Screening [facility] Start: 11-03-1977 Hepatitis C screening [facility] Start: 11-03-1974 HIV screening [facility] Start: 1971 Adolescent depressio n screening assessment [facility] Start: 1971 Depression [facility] Start: 11-03-1969 Albumin DL <= 20 mg/ L (U) [Mass/Vol] Urine Microalbumin [facility] Start: 11-03-1969 Microalbumin measurement, urine, quantitative Urine Microalbumin [facility] Start: 11-03-1969 Urine screening for protein Urine Microalbumin [facility] Start: 11-03-1965 Pneumococcal Vaccine : Ped or At-Risk (1 - PCV) Pneumococcal Vaccine: Ped or At-Risk (1 - PCV) [facility] Start: 11-03-1965 Pneumococcal Vaccine : Ped or At-Risk (1 of 4 - PCV13) Pneumococcal Vaccine: Ped or At-Risk (1 of 4 - PCV13) [facility] Start: 11-03-1962 History and physical examination, annual for health maintenance Wellness Visit [facility] Start: 1959 Screening for malign ant neoplasm of cervix Pap Smear [facility] Start: 1959 Screening for malign ant neoplasm of colon [facility] Start: 1959 Screening mammography [facility] Start: 1959 Tetanus vaccination Tetanus: Every 1 0yrs [facility] Bacteria identified in Urine by Culture [facility] Calculated LDL cholesterol level [facility] Work Phone: Cholesterol [Mass/volume] in Serum or Plasma [facility] Work Phone: Cholesterol in HDL [Mass/volume] in Serum or Plasma [facility] Work Phone: Cholesterol.total/Ch oles terol in HDL [Mass Ratio] in Serum or Plasma [facility] Work Phone: End: 08-22-2021 Comprehensive metabolic 2000 panel Comprehensive Metabolic Panel Lab Routine Bipolar 1 disorder, manic, mild (HCC) KALEN (Generalized Anxiety Disorder) Long-term use of high-risk medication 1 Occurrences starting 08/22/2020 until 08/22/2021 [facility] Comment on above: 1 Occurrences starti ng 08/22/2020 until 08/22/2021 Patient Education Schizophrenia (DC) [facility] DC Instructions [facility] Work Phone: Patient referral [facility] Work Phone: Renal function 2000 panel - Serum or Plasma [facility] Thyrotropin [Units/volume] in Serum or Plasma [facility] Work Phone: Triglyceride [Mass/volume] in Serum or Plasma [facility] Work Phone: End: 08-22-2021 TSH Qn TSH Lab Routine Bipolar 1 disorder, manic, mild (HCC) KALEN (Generalized Anxiety Disorder) Long-term use of high-risk medication 1 Occurrences starting 08/22/2020 until 08/22/2021 [facility] Comment on above: 1 Occurrences starti ng 08/22/2020 until 08/22/2021 Vitamin D, 25-hydrox y measurement [facility] Work Phone: VLDL cholesterol measurement [facility] Work Phone: [facility] Immunizations Immunization Date Immunization Notes Care Provider Jn matt 04-26-2023 influenza virus vaccine, unspecified formulation Radha Penaloza [employer] INSTALLER AND REPAIRER-ANTHROPOLOGY DEPARTMENT CHAIR Work Phone: [facility] 05-31-2019 tetanus toxoid, redu terrell diphtheria toxoid, and acellular pertussis vaccine, adsorbed Radha Penaloza [employer] INSTALLER AND REPAIRER-ANTHROPOLOGY DEPARTMENT CHAIR Work Phone: [facility] 05-28-2019 Influenza, injectabl e, [place]in [place] Canine Kidney, preservative free, quadrivalent Radha Penaloza [employer] INSTALLER AND REPAIRER-ANTHROPOLOGY DEPARTMENT CHAIR Work Phone: [facility] 03-24-2018 influenza, injectabl e, quadrivalent, preservative free Radha Penaloza [employer] INSTALLER AND REPAIRER-ANTHROPOLOGY DEPARTMENT CHAIR Work Phone: [facility] 06-28-2015 zoster vaccine, live Radha Penaloza [employer] INSTALLER AND REPAIRER-ANTHROPOLOGY DEPARTMENT CHAIR Work Phone: [facility] 02-17-2011 influenza, seasonal, injectable Radha Penaloza [employer] INSTALLER AND REPAIRER-ANTHROPOLOGY DEPARTMENT CHAIR Work Phone: [facility] 04-23-2009 novel [id number], preservative-free, injectable Radha Penaloza [employer] INSTALLER AND REPAIRER-ANTHROPOLOGY DEPARTMENT CHAIR Work Phone: [facility] Payers Date Payer Category Payer Private Health [facility] [id number] 2022-Present [phone] [address] [address] [place] [address] [id number] 2022 Unknown [id number] 2021 Self-pay [id number] 2017 Unknown [id number] 2014 Medicare [id number] 1959 Unknown [id number] 1959 Unknown [id number] 1959 Unknown [id number] 1959 Unknown [id number] [id number] 1959 Unknown [id number] [id number] 1959 Unknown [id number] [id number] 1959 Unknown [id number] 1959 Unknown [id number] 2.16.840.1.363214.3.579. 2.903 1960 Unknown [id number] 2.16.840.1.660764.3.579. 2.593 1959 Unknown [id number] 2.16.840.1.066194.3.579. 2.593 1959 Unknown [id number] 2.16.840.1.009777.3.579. 2.593 1959 Unknown [id number] 2.16.840.1.857259.3.579. 2.59 1959 Unknown [id number] 2.16.840.1.084907.3.579. 2.593 1959 Unknown [id number] 2.16.840.1.127272.3.579. 2.59 1959 Unknown [id number] 2.16.840.1.394668.3.579. 2.593 1959 Unknown [id number] 2.16.840.1.388794.3.579. 2.177 1959 Unknown [id number] 2.16.840.1.604293.3.579. 2.6 1959 Unknown [id number] 2.16.840.1.213754.3.579. 2.1286 1959 Unknown [id number] 2.16.840.1.844440.3.579. 2.1258 1959 Unknown [id number] 2.16.840.1.671159.3.579. 2.1258 1959 Unknown [id number] 2.16.840.1.724105.3.579. 2.1258 1959 Unknown [id number] 2.16.840.1.323878.3.579. 2.1258 1959 Unknown [id number] 2.16.840.1.438141.3.579. 2.1258 1959 Unknown [id number] 2.16.840.1.295400.3.579. 2.1258 1959 Unknown [id number] 2.16.840.1.175112.3.579. 2.1258 1959 Unknown [id number] 2.16.840.1.874491.3.579. 2.1258 1959 Unknown [id number] 2.16.840.1.900260.3.579. 2.1258 1959 Unknown [id number] 2.16.840.1.222334.3.579. 2.1258 1959 Unknown [id number] 2.16.840.1.625096.3.579. 2.125 1959 Unknown [id number] 2.16.840.1.328193.19 Medicare [id number] 2.16.840.1.216031.19 Unknown [facility] [id number] Effective for all dates [phone] [address] [address] [place] [address] [id number] 1.2.840.336455.1.13.385. 2.7.3.456675.315 Unknown [id number] 2.16840.1.841910.3.579. 2.531 Unknown [id number] 2.16840.1.836164.3.579. 2.531 Unknown [id number] 2.840.1.120382.19 Social History Date Type Detail Facility Tobacco smoking stat [facility] Unknown if ever smoked [facility] Start: 1960 Sex Assigned At Not on file [facility] Start: 10-26-2017 End: 08-22-2020 Tobacco smoking status MNIS Never smoker [facility] Start: 10-26-2017 End: 08-22-2020 Tobacco use and exposure Never used [facility] Start: 08-22-2020 End: 06-21-2022 Alcohol intake Ex-drinker (finding) [facility] Start: 09-04-2021 End: 06-21-2022 Exposure to SARS-CoV-2 (event) Not sure [facility] Start: 12-17-2018 End: 08-22-2020 Cigarette pack-years [facility] Start: 12-17-2018 End: 09-05-2023 Sex Assigned At [facility] Start: 1960 Sex Assigned At Female [facility] Start: 10-26-2017 End: 09-05-2023 Alcohol intake Current non-drinker of alcohol (finding) [facility] Childcare Unknown [facility] Start: 10-02-2019 Gender identity Identifies as female gender (finding) [facility] Start: 10-02-2019 Sexual orientation Heterosexual (finding) [facility] Medical Equipment Procedure Code Equipment Code Equipment Origin al Text Equipment Identifier Dates Suture [place] [facility] ivel - [id number] - [id number], [id number] FDA Start: 07-27-2017 Fiberlink - Ness 7235 - [id number] Start: 07-27-2017 Plate Bn [id number] m 1/3 Tblr 7 Hl Colr Lcp Ss .7mm 12mm Ns - Sna - [id number] Start: 12-09-2021 Screw Bn 16mm 4m m 6mm Sm Hex Sckt Canc Ss 2.5mm Ft Ns - Sna - [id number] Start: 12-09-2021 Goals Date Patient Goal Desired Activity /State Personal health goal Comment on above: Formatting of this n ote might be different from the original. Evaluation of progress towards goal: Patient plans to discharge home with self care and with family assistance Functional Status Date Assessment Result Facility 03-23-2022 Functional status Patient at Baseline [facility] Work Phone: Mental Status Date Assessment Result Facility 03-23-2022 Cognitive function Cognitive Sta tus Patient at Baseline [facility] Work Phone: Clinical Notes 01-27-2021 to 10-08-2023 Discharge InstructionsAttachMIRIAM Marcelo - 09/05/2023 3:00 PM EDT Note Date & Type Note Facility 10-08-2023 Hospital Discharg e instructions Carrie Shipley APRN - CNP - 10/08/2023 7:34 PM EDT Tylenol or ibuprofen as directed [id number] for mild to moderate pain. Percocet pain medication for severe pain no drinking alcohol or driving if taking this medication, this medication can be habit-forming and cause constipation if you become constipated please use nyyl-dhx-wuguoiu stool softener with stimulant; remember this medication also contains Tylenol/acetaminophen. Return to the ER: Fevers, atypical headaches, weakness or mentation changes, vomiting, increased or worsening pain in the right arm, pale right hand fingers, numbness; or any other concerning symptoms. The following attachments cannot be sent through Care Everywhere.Splint or Immobilizer Use (Citizen [place])RICE: General Info (Citizen [place])Wrist Fracture (Citizen [place])documented in this encounter [facility] 09-05-2023 History of Presen t illness Narrative Images from the original note were not included. Chief Complaint: Constipation History of Present Illness Nola Waller is a 62 y.o. female who presents to the office for constipation. She has been constipated her whole life. She was previously taking a vitamin from an online doctor in [place] to promote regularity. She stopped taking this and has had trouble going ever since. She has not had a bowel movement since Tuesday. She has previously gone long stretches between bowel movements. She drinks 1 gallon of water daily. She eats 1 serving of fiber daily. She is involved in yoga, drums and walks 20 laps on Tuesday. She denies any diarrhea, rectal bleeding or abdominal pain. Her last colonoscopy was September 2021. Review of Systems Constitutional: Negative for fever and unexpected weight change. HENT: Negative for trouble swallowing. Respiratory: Negative for shortness of breath. Cardiovascular: Negative for chest pain. Gastrointestinal: Positive for constipation. Negative for nausea, vomiting, abdominal pain, diarrhea, blood in stool and black tarry stool. Genitourinary: Negative for dysuria and difficulty urinating. Musculoskeletal: Negative for gait problem. Skin: Negative for rash and wound. Neurological: Negative for dizziness, weakness and light-headedness. Hematological: Does not bruise/bleed easily. Psychiatric/Behavioral: Negative for confusion. Past Medical History: Diagnosis Date Anxiety Bipolar affective ([facility]) Chronic constipation takes miralax and colace daily, keeps under control Chronic kidney disease stage 3, sees Dr. Zachary Pascual in [place] Dental disease caps Depression Pelvic mass Pneumonia 08/18/2019 admitted for overnight, took antibiotic and resolved Primary hypertension Rosacea Seasonal allergies Visual impairment glasses Past Surgical History: Procedure Laterality Date ARTHROSCOPY SHOULDER Right 07/27/2017 Performed by Steve Valentin DO at [facility] BREAST BIOPSY Left 2015 benign, needle bx. COLONOSCOPY every 5 years, approx 2016 for last COLONOSCOPY N/A 09/07/2021 Performed by Geraldo Ramirez DO at [facility] CYSTOSCOPY N/A 10/09/2019 Performed by Merritt Trinidad MD at [facility] DILATION AND CURETTAGE OF UTERUS x 2, in the remote past HYSTERECTOMY 2020 KNEE SURGERY years ago right, scope LAPAROSCOPIC HYSTERECTOMY / RSO / EXCISION PELVIC MASS N/A 10/09/2019 Performed by Merritt Trinidad MD at [facility] OOPHORECTOMY OPEN REDUCTION INTERNAL FIXATION ANKLE TRIMALLEOLAR Right 12/09/2021 Performed by Steve Valentin DO at [facility] Allergies Allergen Reactions Stelazine [Trifluoperazine] muscle cramps Caused jaw to lock when used in combination with thorazine when younger, for bipolar disorder Thorazine [Chlorpromazine] muscle cramps Caused facial jaw to lock when used in combination with stelazine Current Outpatient Medications: clonazePAM (KlonoPIN) 1 mg tablet, Take 1 tablet (1 mg total) by mouth nightly., Disp: , Rfl: lithium 600 MG capsule, Take 1 capsule (600 mg total) by mouth nightly., Disp: , Rfl: OLANZapine (ZyPREXA) 15 mg tablet, Take 1 tablet (15 mg total) by mouth nightly., Disp: , Rfl: PURELAX 17 gram/dose powder, Take 17 g by mouth in the morning., Disp: , Rfl: UNABLE TO FIND, Take 2 tablets by mouth in the morning. Lluvia- Promotes regularity, bloating, and gas relief- dietary supplement., Disp: , Rfl: Social History Socioeconomic History Marital status: Spouse name: Not on file Number of children: Not on file Years of education: Not on file Highest education level: Not on file Occupational History Not on file Tobacco Use Smoking status: Never Smokeless tobacco: Never Vaping Use Vaping Use: Never used Substance and Sexual Activity Alcohol use: No Drug use: No Sexual activity: Not Currently Partners: Male control/protection: Surgical Other Topics Concern Not on file Social History Narrative Not on file Social Determinants of Health Financial Resource Strain: Not on file Food Insecurity: Unknown (09/05/2023) Hunger Screening Food Insecurity - Worry: Never True Food Insecurity - Inability: Not on file Transportation Needs: Not on file Physical Activity: Not on file Stress: Not on file Social Connections: Not on file Interpersonal Safety: Not on file Housing Instability: Not on file Family History Problem Relation Age of Onset Colon cancer Mother Diabetes Father Dementia Father Lymphoma Brother Heart attack Brother Heart failure Brother Throat cancer Brother Anesthesia problems Neg Hx Breast cancer Neg Hx Objective Physical Exam Constitutional: General: She is not in acute distress. Appearance: Normal appearance. She is not ill-appearing. HENT: Head: Normocephalic and atraumatic. Mouth/Throat: Mouth: Mucous membranes are moist. Eyes: Pupils: Pupils are equal, round, and reactive to light. Cardiovascular: Rate and Rhythm: Normal rate and regular rhythm. Pulmonary: Effort: Pulmonary effort is normal. No respiratory distress. Abdominal: General: Bowel sounds are normal. There is no distension. Palpations: Abdomen is soft. Tenderness: There is no abdominal tenderness. There is no guarding. Musculoskeletal: General: Normal range of motion. Skin: General: Skin is warm and dry. Neurological: Mental Status: She is alert and oriented to person, place, and time. Mental status is at baseline. Psychiatric: Mood and Affect: Mood is anxious. Vital Signs: Blood pressure (!) 155/94, pulse (!) 135, height 160 cm (5' 3 ), weight 69.9 kg (154 lb 3.2 oz), not currently . Respiratory Source: No data recorded Admission Weight: Weight: 69.9 kg (154 lb 3.2 oz) Labs Lab Results Component Value Date WBC 13.9 (H) 08/19/2019 HGB 11.6 (L) 08/19/2019 HCT 34.9 (L) 08/19/2019 MCV 98 08/19/2019 PLT 190 08/19/2019 Lab Results Component Value Date GLU 100 (H) 12/09/2021 CALCIUM 9.8 12/09/2021 K 3.9 12/09/2021 CO2 27 12/09/2021 CL 108 12/09/2021 BUN 27 12/09/2021 CREATININE 1.38 (H) 12/09/2021 No results found for: AMYLASE No results found for: LIPASE Lab Results Component Value Date ALT 11 08/18/2019 AST 16 08/18/2019 Lab Results Component Value Date INR 1.2 (H) 12/09/2021 INR 1.2 08/18/2019 PROTIME 13.4 (H) 12/09/2021 PROTIME 13.5 (H) 08/18/2019 Imaging Colonoscopy 09/07/2021: Findings: Skin tags were found on perianal exam. A 5 mm polyp was found in the proximal descending colon. The polyp was sessile. The polyp was removed with a hot snare. Resection and retrieval were complete. An 8 mm polyp was found in the splenic flexure. The polyp was sessile. The polyp was removed with a hot snare. Resection and retrieval were complete. The exam was otherwise without abnormality on direct and retroflexion views. Estimated Blood Loss: Estimated blood loss: none. Impression: - Perianal skin tags found on perianal exam. - One 5 mm polyp in the proximal descending colon, removed with a hot snare. Resected and retrieved. - One 8 mm polyp at the splenic flexure, removed with a hot snare. Resected and retrieved. - The examination was otherwise normal on direct and retroflexion views. Final Pathologic Diagnosis 1. Splenic flexure polyp, excision: Fragments of tubulovillous adenoma and vegetable material. 2. Descending colon polyp, excision: Fragments of tubulovillous adenoma. Assessment Nola Waller is a 62 y.o.female with chronic constipation. Plan > 64 oz of water daily. Exercise. Increase fiber intake to 25-30 g daily or take a fiber supplement OTC. Toilet footstool. 1 capful MiraLax up to 3x daily as needed. She will call back if symptoms persist or worsen. Due for next colonoscopy in 2024. Evaluation included: Preparing to see the patient (e.g., review of tests) Obtaining and/or reviewing separately obtained history Performing a medically appropriate examination and/or evaluation Counseling and educating the patient/family/caregiver Referring and communicating with other health director medicare sales Chronic constipation [K59.09] MIRIAM GOLD [facility] General Surgery [place] This note was created with the assistance of a speech recognition program. While intending to generate a timely document that accurately reflects the content of the visit, no guarantee can be provided that every grammatical or spelling mistake has been or will be identified or corrected. Thank you for your understanding. MIRIAM Gold 09/05/23 1533 documented in this encounter [facility] 07-06-2023 Evaluation note Encounter Date Diagnosis Assessment [...] patient is sent home pleased, without concerns. [employer] [facility] 10-18-2023 Evaluation note* Encounter Date Diagnosis [...] her to avoid magnesium based laxatives Mar, [place] use (ICD-10 - Z79.899) She has a [...] to continue to follow with Dr. Marrufo. [facility] 08-17-2023 Evaluation note* Encounter Date Diagnosis [...] ER or RTO. Symptoms have improved today [employer] 06-13-2023 Evaluation note* Encounter Date Diagnosis [...] her to avoid magnesium based laxatives Nov, [place] use (ICD-10 - Z79.899) She has a [...] likely primary hyperparathyroidism. I referred her to barn manager Dr. Marrufo. [employer] Other 01-18-2023 History of Present illness Narrative* Juan Adames MD - 06/23/2022 2:20 PM EST BEHAVIORAL HEALTH PSYCHIATRIC PROGRESS NOTE Date of service: 06/21/2022 Nola Waller, a 61 y.o. female, psychotropic medication management [...] plan was discussed with patient. Impression/ Plan: Whitewright I: Bipolar disorder, type I, most recent episode mixed, severe with psychosis , generalized anxiety disorder Whitewright II: Deferred Whitewright III: CKD stage III Whitewright IV: other psychosocial or environmental problems Whitewright V: 51-60 moderate symptoms Recommendations: Treatment Plan: [...] Objectives discussed. Other Referrals/Consults/Psychological Testing: None Juan Adames documented in this [id number] History of Present illness Narrative* Juan Adames MD - 05/10/2022 8:23 PM EST Telephone Visit Via Phone Call [facility] [phone] Telephone Visit [facility] 04/26/2022 Juan Adames MD Provider Location: [facility]. Patient Location Assemblies And Installations Inspector: None Patient Location: Patient's Home Patient: Nola Waller Date of : 1960 (61 y.o. female) [...] there are inherent diagnostic limitations compared to opsg-gp-ilrs evaluations. We elected toproceed with the telephone [...] She is tolerating the lithium well. 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 documented in this [id number] Evaluation note* Encounter Date Diagnosis Assessment Notes [...] will check her renal function again. May, [place] use (ICD-10 - Z79.899) She has a [...] Calcium, Phos and Vit D are normal. [employer] [facility] 11-15-2022 History of Present illness Narrative* Juan Adames MD - 04/20/2022 11:32 AM EST BEHAVIORAL HEALTH PSYCHIATRIC PROGRESS NOTE 04/19/2022 Nola Waller, a 61 y.o. female, psychotropic medication management follow-up Patient is referred by Santa Augustin MD . Interval History: Patient is seen in office for psychotropic medication management follow-up and hospital follow-up. Patient was hospitalized at [facility] from 03/11 to 03/23/2022 for worsening mood [...] plan was discussed with patient. Impression/ Plan: Whitewright I: Bipolar disorder, type I, most recent episode manic with psychosis Whitewright II: Deferred Whitewright III: CKD stage III Whitewright IV: other psychosocial or environmental problems Whitewright V: 51-60 moderate symptoms Recommendations: Treatment Plan: [...] Objectives discussed. Other Referrals/Consults/Psychological Testing: None Juan Adames documented in this [id number] Progress note Author Marco A Zaman [facility] March 22, 2022 3:02pm Note Date/Time March 22, 2022 3 :00pm [facility] [address] [place] [address] Psychiatry Progress Note Signed Patient: Nola Waller MR#: [id number] 1468 : 1960 Acct:[id number] Age/Sex: 61 / F Adm Date: 2 Loc: Room: [address] [place] [address] Type : ADM IN Attending Dr: Marco [...] little bit. He is concerned about some ing as the night visit tends to go [...] Documented By: Marco A Zaman MD 03/22/22 1670 Signed By: <Electronically signed by Marco A Zaman MD> 03/22/22 6457 [facility] Work Phone: 1(748) 933-430810-16-2022 Progress note Author Horacio bethea [facility] March 21, 2022 9:54am Note Date/Time March 21, 2022 9 :52am [facility] [address] [place] [address] Psychiatry Progress Note Signed Patient: Nola Waller MR#: [id number] 1468 : 1960 Acct:[id number] Age/Sex: 61 / F Adm Date: 2 Loc: Room: [address] [place] [address] Type : ADM IN Attending Dr: Marco [...] signed by Horacio Kim MD> 03/21/22 0954 [facility] Work Phone: 1(389) 432-346010-15-2022 Progress note Author Horacio bethea [facility] March 20, 2022 9:19am Note Date/Time March 20, 2022 9 :19am [facility] [address] [place], [place] [id number] Psychiatry Progress Note Signed Patient: Nola Waller MR#: [id number] 1468 : 1960 Acct:[id number] Age/Sex: 61 / F Adm Date: 2 Loc: Room: [address] [place] [address] Type : ADM IN Attending Dr: Marco [...] explained Documented By: Horacio Kim MD 2 0918 Signed By: <Electronically signed by Horacio Kim MD> 03/20/22 0919 [facility] Work Phone: 1(571) 642-363310-14-2022 Progress note Author Horacio bethea [facility] March 19, 2022 9:03am Note Date/Time March 19, 2022 9 :03am [facility] [address] [place] [address] Psychiatry Progress Note Signed Patient: Nola Waller MR#: [id number] 1468 : 1960 Acct:[id number] Age/Sex: 61 / F Adm Date: 2 Loc: Room: [address] [place] [address] Type : ADM IN Attending Dr: Marco [...] signed by Horacio Kim MD> 03/19/22 0903 [facility] Work Phone: 1(414) 743-647310-13-2022 Progress note Author Horacio bethea [facility] March 18, 2022 8:44am Note Date/Time March 18, 2022 8 :44am [facility] [address] [place] [address] Psychiatry Progress Note Signed Patient: Nola Waller MR#: [id number] 1468 : 1960 Acct:[id number] Age/Sex: 61 / F Adm Date: 2 Loc: Room: [address] [place] [address] Type : ADM IN Attending Dr: Marco [...] signed by Horacio Kim MD> 03/18/22 0844 [facility] Work Phone: 1(360) 771-771810-12-2022 Hospital Discharge instructions Additional Instructions Invega Sustenna 234mg injection given 03/17/2022. Invega Sustenna 156mg booster injection given 03/22/2022. Invega Injection Due on 04/19/2022 You have completed your course of antibiotics Regular diet. No activity restrictions.[facility] Work Phone: 1(861) 992-479810-12-2022 Progress note Author Horacio bethea [facility] March 17, 2022 9:33am Note Date/Time March 17, 2022 9 :31am [facility] [address] [place] [address] Psychiatry Progress Note Signed Patient: Nola Waller MR#: [id number] 1468 : 1960 Acct:[id number] Age/Sex: 61 / F Adm Date: 2 Loc: Room: [address] [place] [address] Type : ADM IN Attending Dr: Marco [...] explained Documented By: Horacio Kim MD 2 0931 Signed By: <Electronically signed by Horacio Kim MD> 03/17/22 0933 [facility] Work Phone: 1(852) 346-806210-11-2022 Progress note Author Horacio bethea [facility] March 16, 2022 9:48am Note Date/Time March 16, 2022 9 :47am [facility] [address] [place] [address] Psychiatry Progress Note Signed Patient: Nola Waller MR#: [id number] 1468 : 1960 Acct:[id number] Age/Sex: 61 / F Adm Date: 2 Loc: Room: [address] [place] [address] Type : ADM IN Attending Dr: Marco [...] signed by Horacio Kim MD> 03/16/22 0948 [facility] Work Phone: 1(189) 422-499110-10-2022 Progress note Author Horacio bethea [facility] March 15, 2022 8:53am Note Date/Time March 15, 2022 8 :52am [facility] [address] [place] [address] Psychiatry Progress Note Signed Patient: Nola Waller MR#: [id number] 1468 : 1960 Acct:[id number] Age/Sex: 61 / F Adm Date: 2 Loc: Room: [address] [place] [address] Type : ADM IN Attending Dr: Marco [...] signed by Horacio Kim MD> 03/15/22 0853 [facility] Work Phone: 1(427) 122-947010-09-2022 Progress note Author Marco A Zaman [facility] March 14, 2022 11:32am Note Date/Time March 14, 2022 11 :32am [facility] [address] [place] [address] Psychiatry Progress Note Signed Patient: Nola Waller MR#: [id number] 1468 : 1960 Acct:[id number] Age/Sex: 61 / F Adm Date: 2 Loc: Room: [address] [place] [address] Type : ADM IN Attending Dr: Marco [...] <Electronically signed by Marco A Zaman MD> 03/14/221131 [facility] Work Phone: 1(774) 372-452310-08-2022 Progress note Author Marco A Zaman [facility] March 13, 2022 12:25pm Note Date/Time March 13, 2022 12 :25pm [facility] [address] [place] [address] Psychiatry Progress Note Signed Patient: Nola Waller MR#: [id number] 1468 : 1960 Acct:[id number] Age/Sex: 61 / F Adm Date: 2 Loc: Room: [address] [place] [address] Type : ADM IN Attending Dr: Marco [...] <Electronically signed by Marco A Zaman MD> 03/13/22 1225 [facility] Work Phone: 1(143) 899-732810-07-2022 History and physical note Author Marco A Zaman [facility] March 12, 2022 5:35pm Note Date/Time March 12, 2022 5: 29pm [facility] [address] [place] [address] Psychiatry H&P Signed Patient: Nola Waller MR#: [id number] 1468 : 1960 Acct:[id number] Age/Sex: 61 / F Adm Date: 2 Loc: Room: [address] [place] [address] Type: ADM IN Attending Dr: Marco A Zaman MD Copies to: MD Santa Chase MD~ Date of Service: 03/12/2022 HPI Narrative Narrative: Nola Waller is a 61-year-old female with a past [...] does admit its time to work on me . She is oriented to person and date. She believed she was at [facility] Patient is extremely tearful on [...] confirmed this with the medical student as notedmaru. Clien presenting due to concern for psychosis. Upon assessment, patient is internally stimulated and talking to herself. She also exhibits delayed responsewhen questions asked. She admits to [facility]. Recent medication changes discussed. Client questions if [...] Appearance Clear Urine pH 6.5 Ur Specific [place] 1.007 Urine Protein Negative Urine Glucose (UA) [...] signed by Marco A Zaman MD> 03/12/22 3161 [facility] Work Phone: [phone] 263-134510-07-2022 NoteBedside Glucose CommentOctober 2021 6:09amSee commentGlu2: Procedure ErrorPoint of Care testingUniversity Hospitals Tripoint Medical CenterComment on above:Glu2: Procedure [id number] History of Present illness Narrative* Juan Adames MD - 02/12/2022 2:36 PM EDT Telephone Visit Via Phone Call [facility] [phone] Telephone Visit [facility] 02/12/2022 Juan Adames MD Provider Location: [facility] Patient Location Assemblies And Installations Inspector: None Patient Location: Patient's Home Patient: Nola Waller Date of : 1960 (61 y.o. female) [...] there are inherent diagnostic limitations compared to sqac-uy-[id number] evaluations. We elected toproceed with the telephone [...] and Plan of Care. documented in this [id number] History of Present illness Narrative* Juan Adames MD - 11/19/2021 11:40 AM EDT 10 [...] after discontinuation of lithium. documented in this [id number] History of Present illness Narrative* Juan Adames MD - 09/14/2021 3:37 PM EDT BEHAVIORAL [...] reviewed: Data review needed, labs obtained from [place] Response to Medication: Adequate ASSESSMENT AND PLAN: [...] fax when the labs are completed Juan Adames documented in this [id number] Telephone encounter Note* Telephone Encounter - Yuni Negron CNP - 08/25/2021 1:49 PM EDT Prescription for Clonazepam 1mg at bedtime #30, 0RF written to continue medication written for patient by provider, Dr. Adames. [employer] Work Phone: [phone] Miscellaneous Notes* Telephone Encounter - Yuni Negron CNP - 08/25/2021 1:49 PM EDT Prescription for Clonazepam 1mg at bedtime #30, 0RF written to continue medication written for patient by provider, Dr. Adames. * Telephone Encounter - Obdulia Woo MA [...] in another refill request. documented in this [id number] Telephone encounter Note* Telephone Encounter - Obdulia [...] I will put in another refill request. [id number] Telephone encounter Note* Telephone Encounter - Yuni Negron CNP - 08/24/2021 4:22 PM EDT Ms. Waller has 1 refill remaining for Clonazepam 1mg nightly according to OARRS. Asked staff to let her know. [facility] Phone: [phone] Miscellaneous Notes* Telephone Encounter - Yuni Ngeron CNP - 08/24/2021 4:22 PM EDT Ms. Waller has 1 refill remaining for Clonazepam 1mg nightly according to OARRS. Asked staff to let her know. * Telephone Encounter - Yuni Negron CNP - 08/24/2021 8:24 AM EDT It appears that Ms. Waller has one refill remaining according to OARSS checked this morning. Please ask her to check with her pharmacist. Thank you! documented in this [id number] Telephone encounter Note* Telephone Encounter - Yuni Negron CNP - 08/24/2021 8:24 AM EDT It appears that Ms. Waller has one refill remaining according to OARSS checked this morning. Please ask her to check with her pharmacist. Thank you! [id number] Evaluation note* Encounter Date Diagnosis Assessment Notes [...] an appointment to be seen in follow-up [employer] Other 10-27-2021 Evaluation note* Encounter Date Diagnosis Assessment Notes Treatment Notes Treatment Clinical Notes Mar, Chronic kidney disease, stage 3b (ICD-10 - N18.32) She has a CKD likely due to the chronic interstitial nephritis due to the prolonged vitamin use. She has no evidence of hematuria and proteinuria on UA. Her renal ultrasound showed bilateral renal cortical atrophy and bilateral renal cysts. Mar, [place] use (ICD-10 - Z79.899) She has a [...] have advised him to stop the multivitamin [employer] Other 10-04-2021 History of Present illness Narrative* Juan Adames MD - 03/09/2021 10:52 PM EDT BEHAVIORAL [...] and motivation. She has been going to [employer] and working out. Patient denies any ongoing [...] reviewed: Data review needed, labs obtained from [place] Response to Medication: Adequate ASSESSMENT AND PLAN: [...] Objectives discussed. Other Referrals/Consults/Psychological Testing: None Juan Adames documented in this [id number] History of Present illness Narrative* Heidi Tenorio LPN - 01/27/2021 1:09 PM EDT Called and left message with medical records at [facility] letting them know that Dr. Adames wants all of patients lab work as far back as 5 years ago faxed to our office. Let them know that most of her labs had been ordered by Dr. Adames anyhow. Left my direct line and our fax number. documented in this encounterOhioHealthDischarge summary Author Marco A Zaman [facility] March 23, 2022 2:41pm Note Date/Time March 23, 2022 2 :37pm [facility] [address] [place], [place] [id number] Discharge Summary Signed Patient: Nola Waller MR#: [id number] : 1960 Acct:[id number] Age/Sex: 61 / F Adm Date: 2 Loc: Room: [address] [place] [address]: Marco A Zaman MD Copies to: MD Santa Chase MD~ Providers Date of Discharge: 03/23/22 Discharging Provider: Marco A Zaman Primary Care Provider: Santa Augustin Discharge Diagnosis (1) Schizophrenia: Final Diagnosis Final Discharge Diagnosis: Schizophrenia Summary Hospital Course Hospital course: According to admission note: Nola Waller is a 61-year-old female with a past [...] does admit its time to work on [employer] .? She is oriented to person and date.? She believed she was at [facility] Patient is extremely tearful on [...] diet. No activity restrictions. Instructions: Schizophrenia (DC), [facility] [place] Instructions Prescriptions: New oxcarbazepine [...] mg PO DAILY Follow Up: Dr. Juan Adames [Other] - 04/26/22 1:30 pm (Invega Injection due 04/19/22) [facility] [Other] - 03/25/22 9:30 am (Therapy with Shawn Carlos) [facility] Hotline [Outside] Documented By: Marco A Zaman MD 03/23/22 1435 Signed By: <Electronically signed by Marco A Zaman MD> 03/23/22 1441 [facility] Work Phone: evaluation note* Diagnosis KALEN (generalized [...] unspecified documented in this encounter [facility]Evaluation noteNo [employer] Other evaluation note* Diagnosis Bipolar 1 disorder, manic, moderate (HCC)- Primary Anxiety Anxiety state, unspecified documented in this encounter [facility]* Diagnosis Onset Date Resolution Status Hallucinations acute UTI (urinary tract infection) acute [facility] Work Phone: evaluation note* Diagnosis Onset Date Resolution Status Hallucinations acute Schizophrenia acute UTI (urinary tract infection) acute [facility] Work Phone: evaluation note* Diagnosis Bipolar affective disorder, manic, severe, with psychotic behavior (HCC)- Primary Bipolar I disorder, most recent episode (or current) manic, severe, specified as with psychotic behavior KALEN (generalized anxiety disorder) Generalized anxiety disorder [facility]* Diagnosis Long-term use of high-risk medication- Primary Bipolar affective disorder, manic, severe, with psychotic behavior (HCC) Bipolar I disorder, most recent episode (or current) manic, severe, specified as with psychotic behavior documented [facility] this encounter [facility]* Diagnosis Chronic constipation- Primary Unspecified constipation [facility] Diagnosis Onset Date Resolution Status CKD (chronic kidney disease) stage 3, GFR 30-59 ml/min acute Hypercalcemia acute Hyperparathyroidism acute [place] use acute [facility] Work Phone: Evaluation note* Diagnosis Closed fracture of right wrist, initial encounter- Primary [facility] N[facility] - Reported* Type Description Date [...] D&C Hospitalization History SEE ABOVE Hospitalization History [facility]in Other [facility] general Narrative - Reported* Type Description Date [...] 09/2021 Hospitalization History SEE ABOVE Hospitalization History [facility]ojin Other history general Narrative - Reported* Type Description Date [...] 09/2021 Hospitalization History SEE ABOVE Hospitalization History [facility] 2018 [employer] Other Instructions* Attachments The following attachments cannot be sent through Care Everywhere. 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 Advance Directives and Living Will Advance Directive Response Recorded Date/ Time Advance Directives No May 12, 2021 7:39am Latest Code Status on File Code Status Date Activated Date Inactivated Comments Full Code 10/09/2019 3:04 PM 10/10/2019 4:18 PM Latest Code Status on File Code Status Date Activated Date Inactivated Comments Full Code 10/26/2017 9:22 PM 11/22/2017 3:36 PM Assessments Diagnosis KALEN (Generalized Anxiety Disorder)- Primary Generalized anxiety disorder Diagnosis Bipolar 1 disorder, manic, mild (HCC)- Primary KALEN (Generalized Anxiety Disorder) Generalized anxiety disorder Long-term use of high-risk medication History of Present Illness * Juan Adames MD - 08/22/2020 2:56 PM EDT Telephone Visit Via Phone Call [facility] [phone] Telephone Visit [facility] 08/22/2020 Juan Adames MD Provider Location: [facility] Patient Location Assemblies And Installations Inspector: None Patient Location: Patient's Home Patient: Nola Waller Date of : 1960 (59 y.o. female) [...] there are inherent diagnostic limitations compared to sdrf-th-nguy evaluations. We elected toproceed with the telephone visit telemedicine consultation. Spouse is present. Audio quality was fair. Patient was able to engage well HPI Patient is a 59-year-old white female who has been under my care for the last 8 years at [facility]previous work location in [facility]. Patient wants to continue her psychiatric management under my supervision at my new location with [facility]. Patient's working diagnosis is bipolar disorder type [...] Reports fair energy and motivation. Patient [facility]esto [facility] for work[facility] regularly. Patient reports she [...] 450 MG CR tablet Other Relevant Orders [place] Level Comprehensive Metabolic Panel TSH Urinalysis KALEN (Generalized Anxiety Disorder) Relevant Medications clonazePAM (KLONOPIN) 1 MG tablet Other Relevant Orders [place] Level Comprehensive Metabolic Panel TSH Urinalysis Other Visit Diagnoses Long-term use of high-risk medication Relevant Orders [place] Level Comprehensive Metabolic Panel TSH Urinalysis Global [...] Visit Hallucinations Schizophrenia UTI (urinary tract infection) Chief Complaint Wellness RENAL 6 month f/u Reason for Visit CKD (chronic kidney disease) stage 3, GFR 30-59 ml/min Hypercalcemia Hyperparathyroidism [place] use Additional Source Comments INFORMATION SOURCE (unrecogn ized section and content) DATE CREATED AUTHOR 11/22/2017 [facility] DATE CREATED AUTHOR AUTHOR'S ORGANIZ ATION 04/05/2019 [facility] DATE CREATED AUTHOR AUTHOR'S ORGANIZ ATION 04/23/2020 [facility] DATE CREATED AUTHOR AUTHOR'S ORGANIZ ATION 03/28/2022 [facility] DATE CREATED AUTHOR AUTHOR'S ORGANIZ ATION 06/22/2022 [facility]atory DATE CREATED AUTHOR AUTHOR'S ORGANIZ ATION 08/06/2022 [facility] DATE CREATED AUTHOR AUTHOR'S ORGANIZ ATION 10/09/2023 [facility] DATE CREATED AUTHOR AUTHOR'S ORGANIZ ATION 10/16/2023 [facility] DATE CREATED AUTHOR AUTHOR'S ORGANIZ ATION 02/12/2024 [facility] EPIC Reason for Visit (unrecogniz ed section and content) Reason Onset Date Comments Medication Refill 07/14/2020 Reason Comments New Patient/Bipolar/Anxiety Reason Comments Medication Management Reason Onset Date Comments Medication Refill 05/21/2021 Reason Onset Date Comments Medication Refill 08/21/2021 Reason Onset Date Comments Medication Refill 08/25/2021 Reason Comments Constipation Chronic constipation , last colon 09/07/21 Reason Comments Wrist Injury Arm Injury right Care Teams (unrecognized sec tion and content) Train Operator Relationship Specialty Start Date End Date Santa Augustin MD [address] [place] [address] PCP - General Family Medicine 07/09/20 Train Operator Relationship Specialty Start Date End Date Santa Augustin MD [address] [place] [address] PCP - General Family Medicine 07/09/20 Train Operator Relationship Specialty Start Date End Date Santa Augustin MD [address] [place] [address] PCP - General Family Medicine 07/09/20 Train Operator Relationship Specialty Start Date End Date Santa Augustin MD [address] [place] [address] [place] [address] PCP - General Family Medicine 07/09/20 Train Operator Relationship Specialty Start Date End Date Santa Augustin MD [address] [place] [address] [place] [address] PCP - General Family Medicine 07/09/20 Train Operator Relationship Specialty Start Date End Date Santa Augustin MD [address] [place] [address] [place] [address] PCP - General Family Medicine 07/09/20 Train Operator Relationship Specialty Start Date End Date Santa Augustin MD [address] [place] [address] [place] [address] PCP - General Family Medicine 07/09/20 Team Status: Active Member Role Status Dates Santa Augustin MD Primary Care Provider Active Momo Hill DO Emergency Provider Active Marco A Zaman MD Admit Provider, Attending Provider Active Team Status: Active Member Role Status Dates Santa Aguustin MD Primary Care Provider Active Team Status: Inactive Member Role Status Dates Santa Augustin MD Primary Care Provider Active Momo Hill DO Emergency Provider Active Marco A Zaman MD Admit Provider, Attending Provider Active Train Operator Relationship Specialty Start Date End Date Santa Augustin MD [address] [place] [address] [place] [address] PCP - General Family Medicine 07/09/20 Train Operator Relationship Specialty Start Date End Date Santa Augustin MD [address] [place] [address] [place] [address] PCP - General Family Medicine 07/09/20 Train Operator Relationship Specialty Start Date End Date Santa Augustin MD [address] [place] [address] [place] [address] PCP - General Family Medicine 07/09/20 Train Operator Relationship Specialty Start Date End Date Santa Augustin MD [address] [place] [address] PCP - General 07/27/17 Team Status: Inactive Member Role Status Dates Santa Augustin MD Attending Provider Active St art: July 06, 2023 End: July 06, 2023 Team Status: Active Member Role Status Dates Santa Augustin MD Primary Care Provide r, Attending Provider Active Start: August 29, 2023 Team Status: Inactive Member Role Status Dates Santa Augustin MD Primary Care Provider Active Start: September 19, 2023 End: September 19, 2023 Zachary Pascual MD Attending Provider Active Start : September 19, 2023 End: September 19, 2023 Train Operator Relationship Specialty Start Date End Date Santa Augustin MD PCP - General Family Medicine 10/26/17 Goals (unrecognized section and content) Goals may be documented in a n alternate section Ordered Prescriptions (unrec ognized section and content) Prescription Sig Dispensed Refills Start Date End Da te oxyCODONE-acetaminophen (PERCOCET) 5-325 MG per tabletIndications:Closed fracture of right wrist, initial encounter Take 1 tablet by mouth every 6 hours as needed for Pain for up to 3 days. Intended supply: 3 days. Take lowest dose possible to manage pain Max Daily Amount: 4 tablets 12 tablet 0 10/08/2023 10/11/2023 Scheduled Active and Recently Administ ered Medications (unrecognized section and content) Medication Order 10/06/2023 10/07/2023 10/08/2023 oxyCODONE-acetaminophen (PERCOCET) 5-325 MG per tablet 1 tablet (COMPLETED) 1 tablet, Oral, ONCE, 1 dose, On 10/08/23 at 1915, Maximum dose of acetaminophen is 4000 mg from all sources in 24 hours. 1903 (Given - Provid er: Tomas Woodall RN) FOR RECORDS PERTAINING TO PATIENTS WHO ARE [...] BE BASED ON THE PRIMARY CLINICAL RECORDS. [facility] [employer] [facility]. provides no warranty or guarantee of the accuracy or completeness of information in this document.
[2024-03-24 08:14] LABS: Hematocrit 39.7 % (36.0-48.0); Hemoglobin 12.7 g/dL (12.0-16.0); Mean Corpuscular Hemoglobin 32.3 pg (26.7-34.0); Mean Platelet Volume 9.8 fL (9.5-13.5); Platelet Count 241 10^3/uL (150-450); Red Blood Count 3.93 10^6/uL (4.20-5.40); Red Cell Distribution Width 13.3 % (11.0-15.0); White Blood Count 7.4 10^3/uL (4.0-11.0)
[2024-03-24 08:15] LABS: Bilirubin Urine NEGATIVE (NEGATIVE); Blood Urine NEGATIVE (NEGATIVE); Clarity Urine CLEAR (CLEAR); Color Urine LT. YELLOW (YELLOW); Glucose Urine UA NEGATIVE (NEGATIVE); Ketones Urine NEGATIVE (NEGATIVE); Leukocyte Esterase Urine SMALL (NEGATIVE); Nitrite Urine NEGATIVE (NEGATIVE); Protein Urine NEGATIVE (NEG/TRACE); Specific Gravity Urine <=1.005 (1.005-1.025); Urobilinogen Urine 0.2 EU/dL (0.2-1.0)
[2024-03-24 08:21] LABS: Creatinine Urine Random 32.98 mg/dL (20.00-300.00); Protein Creatinine Ratio Urine 0.18; Total Protein Urine Random <6.0 mg/dL (<=11.9)
[2024-03-24 08:23] LABS: Bacteria Urine TRACE #/HPF (NONE SEEN); Cast Seen? NONE SEEN #/LPF (NONE SEEN); Crystals Seen? None Seen #/HPF (None Seen); Mucus Urine NONE SEEN (NONE SEEN); RBC Urine 0-2 #/HPF (0-2); Squamous Epithelial Cell Urine RARE #/LPF (NONE/RARE)
[2024-03-24 08:40] LABS: Albumin Level 3.5 g/dL (3.4-5.0); Anion Gap 13.1; BUN Creatinine Ratio 14.2; Calcium 10.2 mg/dL (8.5-10.1); Carbon Dioxide 28.1 mmol/L (21.0-32.0); Chloride 111 mmol/L (98-107); Estimated GFR (African America 39 (>=60 mL/min/1.73m^2); Estimated GFR (Non-African Ame 32 (>=60 mL/min/1.73m^2); Glucose 93 mg/dL (74-106); Magnesium 2.3 mg/dL (1.8-2.4); Phosphorus 4.6 mg/dL (2.6-4.7); Potassium 4.2 mmol/L (3.5-5.1); Sodium 148 mmol/L (136-145); Uric Acid 6.4 mg/dL (2.6-6.0)
[2024-03-26 15:08] LABS: PTH, Intact 69 pg/mL (15-65)
== END 2024-03-24 07:50 | disposition home or self-care (01) ==
LOC: LAB 07:50
PROVIDERS: PCP Family Medicine; Visit Provider Internal Medicine
DX: E21.3 Hyperparathyroidism, unspecified (principal); Z79.899 Other long term (current) drug therapy; N18.30 Chronic kidney disease, stage 3 unspecified
CPT/HCPCS: 36415; 80069; 81001; 82306; 82570; 83735; 83970; 84156; 84550; 85027

== ENCOUNTER 2024-08-03 08:18 | Outpatient (OUT) | payer OTHER, SELFPAY ==
--- OUTSIDE RECORDS SUMMARY | 2024-08-03 08:35 | XMS_ITS | CCD ---
Author Organization [facility] Care Team Providers Care Derrick Operator Name Role Phone SANTA AUGUSTIN Unavailable Unavailable CASSIDY, AHMED Unavailable Unavailable CASSIDY, AHMED Unavailable Unavailable MARY KATE MAST Unavailable Unavailable Santa Augustin Primary Care Provider Santa Augustin MD Primary Care Provider Santa Augustin MD Primary Care Provider Zachary Pascual Unavailable Geneva Naik Unavailable MD Santa Augustin Primary Care Provider [phone] DO [place] [facility] Provider MD Marco A Zaman Admit Provider MD Marco A Zaman Attending Provider [phone] Marco A Zaman Admitting Unavailable Demetria Santa E Primary Care Unavailable Marco A [...] Primary Care Unavailable GEHLOT, UPENDER Attending Unavailable ANUSHA ., ROSMERY DE LUNA Consulting Unavailangel LAURENT ., DR DE OLIVEIRA Admitting [...] Unavailable Santa Augustin MD Primary Care Provider [phone] SANTA AUGUSTIN Primary Care Unavailable RYLIE GRIFFIN Attending Unavailable RADHA PENALOZA Attending Unavailable SANTA AUGUSTIN Referring Unavailable SANTA AUGUSTIN Primary Care Unavailable SANTA AUGUSTIN Referring Unavailable SANTA AUGUSTIN Primary Care Unavailable Santa Augustin MD Primary Care Provider [phone] CONSUELO, GRETCHEN Fried Attending Unavailable APLING, GRETCHEN Fried Attending Unavailable APLING, GRETCHEN Fried Attending Unavailable APLING, GRETCHEN Fried Referring Unavailable APLING, GRETCHEN Fried Attending Unavailable APLING, GRETCHEN Fried Referring Unavailable APLING, GRETCHEN Fried Attending Unavailable APLING, GRETCHEN Fried Referring Unavailable APLING, GRETCHEN Fried Attending Unavailable APLING, GRETCHEN Fried Referring Unavailable RUBY ASENCIO Attending Unavailable APLING, GRETCHEN Fried Referring Unavailable VANDANA CHEN Attending Unavailable Santa Augustin MD Primary Care Provider Tim Barker MD Unavailable CHRISTINE BROWN Attending Unavailable CHRISTINE BROWN Referring Unavailable SANTA AUGUSTIN Primary Care Unavailable CHRISTINE BROWN Attending Unavailable SANTA AUGUSTIN Primary Care Unavailable Santa Augustin MD Primary Care Provider [phone] Allergies Allergy Classification Reported Allergen(s) Allergy Type Date of Onset Reaction(s) Facility (20 sources) chlorproMAZINE; Translations: [CHLORPROMAZINE] Drug Allergy 5 Other: See Comments, muscle cramps [facility] (20 sources) Trifluoperazine; Translations: [TRIFLUOPERAZINE] Drug Allergy 0 Other (See Comments), muscle cramps [facility] (1 source) chlorproMAZINE Drug Allergy 5 [facility] Repository Medications Current Medications Medication Drug Class(es) [...] Benzodiazepine Start: 10-28-2021 End: 09-19-2022 take 1 mg by mouth once daily at bedtime Clonazepam Active 1 MG PO Daily at bedtime March 11, 2022 12:00am Start: 09-14-2019 End: 10-14-2021 take 1 tablet by mouth once daily clonazePAM (KlonoPIN) 1 MG tablet Indications: Anxiety Take 1 (one) tablet (1 mg total) by mouth nightly (Days supply per fill: 30) . 30 tablet 0 08/25/2021 09/14/2021 Discontinued (Reorder) Start: 11-20-2018 take 1 tablet by deb th once daily as needed clonazePAM (KLONOPIN) 0.5 mg tablet Take 0.5 mg by mouth once daily. Also as needed 11/20/2018 Active Cobalamin Combinations (NEURIVA PLUS PO) (1 source) Cobalamin Combin ations (NEURIVA PLUS PO) Take by mouth 0 Active Coffee Xt-Phosphatidyl Serine (Neuriva Original) 100-100 mg capsule (2 sources) Start: 09-19-2023 take 1 capsule by mouth once daily Coffee Xt-Phosphatidyl Serine (Neuriva Original) 100-100 mg capsule Active 1 CAP PO daily September 19, 2023 12:00am docosahexaenoic acid 120 mg / eicosapentaenoic acid 180 mg oral capsule (7 sources) omega-3 (fish oi l) 1000 MG capsule 1 capsule 1 (one) time each day at the same time Active docusate sodium 100 mg oral capsule (20 sources) Start: 09-19-2023 take 100 mg by [...] Stopped On Own) take 1 capsule by mo [facility] once daily as needed Docusate Sodium (DSS) 100 MG capsule 1 capsule as needed Orally Once a day Active fluticasone (1 source) Corticosteroid fluticasone propionate (FLONASE NASAL) Use in the nose. As needed Active lithium carbonate 300 mg extended release oral tablet (20 sources) Start: 09-19-2023 take 600 mg by mouth once daily at bedtime Penelope Carbonate Active 600 MG PO Daily at bedtime September 19, 2023 12:00am Start: 05-18-2022 End: 06-21-2022 take 3 tablets by mouth once daily lithium (LITHOBID) 300 MG CR tablet Take 3 (three) tablets (900 mg total) by mouth daily . 90 tablet 1 06/21/2022 Active Start: 04-26-2022 take 1 tablet by deb once daily lithium (ESKALITH) 450 MG CR [...] nightly . 180 tablet 1 08/22/2020 Active Start: 12-28-2018 take 1 tablet by deb twice daily lithium carbonate ER 450 mg CR tablet Take 450 mg by mouth twice daily. 12/28/2018 Active take 1 capsule by mo ut at bedtime lithium 600 MG capsule Take 600 mg by mouth at bedtime Active take 2 tablets by mo ut every twenty-four hours Penelope Carbonate ER 300 MG 2 tab(s) Orally Once a day Active MegaRed Conifer-3 Krill Oil 50 0 MG (10 sources) MegaRed Conifer-3 Krill Oil 500 MG as directed Orally ONCE A DAY Active mirtazapine 15 mg oral tablet (1 source) Start: 11-22-2017 take 1 tablet by mouth once daily mirtazapine (REMERON) 15 MG tablet Take 1 tablet by mouth nightly 14 tablet 0 11/22/2017 Active Misc Natural Products (Neuriva) capsule (7 sources) Misc Natural Pro ducts (Neuriva) capsule as directed Orally Active Neuriva - (10 sources) Neuriva - [...] 90 tablet 1 02/12/2022 03/02/2022 Discontinued Start: 12-28-2018 End: 02-12-2022 take 1 tablet by mouth once daily OLANZapine (ZYPREXA) 10 MG tablet Take 1 (one) tablet (10 mg total) by mouth nightly . 90 tablet 1 01/18/2022 02/12/2022 Discontinued (Reorder) Conifer 9-Llu-Dae-Fish Oil-Krill (Megared Advanced 4-In-1) 339 mg-314 mg- 500 mg capsule (2 sources) Start: 09-19-2023 Conifer 9-Zra-Qom-Fish Oil-Krill (Megared Advanced 4-In-1) 339 mg-314 mg- 500 mg capsule Active 1 CAP PO 1 to 2 times per day September 19, 2023 12:00am 24 hr paliperidone 6 mg extended release oral tablet (17 sources) Atypical Antipsychotic Start: 05-18-2022 End: 06-21-2022 [...] mg 0 12/18/2017 Active polyethylene glycol 3350 10042 mg powder for oral solution (2 sources) Osmotic Laxative Start: 08-19-2019 take 17 g by mouth in the morning PURELAX 17 gram/dose powder Take 17 g by mouth in the morning. 08/19/2019 Active traZODone hydrochloride 50 mg oral tablet (1 source) Serotonin Reuptake Inhibitor Start: 11-22-2017 take 1 tablet by mouth once daily as needed for sleep traZODone (DESYREL) 50 MG tablet Take 1 tablet by mouth nightly as needed for Sleep 14 tablet 0 11/22/2017 Active UNABLE TO FIND (2 sources) take 2 tablets by mouth in the morning UNABLE TO FIND Take 2 tablets by mouth in the morning. Lluvia- Promotes regularity, bloating, and gas relief- dietary supplement. Active take 2 tablets by mouth in the m orning UNABLE TO FIND Take 2 tablets by [...] May, Active OXcarbazepine 300 mg oral tablet (8 sources) Anti-epileptic Agent Start: 03-23-2022 End: 09-19-2023 take 300 mg by mouth twice daily Oxcarbazepine Discontinued 300 MG PO Twice daily 60 30 March 23, 2022 12:00am September 19, 2023 4:37pm Problems Active Problems Problem Classification Problem Date Documented Date Episodic/Chronic Anxiety disorders (20 sources) Generalized anxiety disorder; Translations: [Generalized anxiety disorder] Onset: 1 08-22-2020 Chronic Blindness and vision defects (2 sources) Diplopia; Translations: [Diplopia] Onset: 4 04-13-2024 Episodic Cataract (2 sources) Bilateral age-related nuclear cataracts; Translations: [Age-related nuclear cataract, bilateral] Onset: 4 04-13-2024 Chronic Chronic kidney disease (20 sources) Chronic kidney disease stage 3; Translations: [Chronic kidney disease stage 2] Onset: 0 Resolved: 1 08-22-2020 Chronic Deficiency and other anemia (8 sources) Anemia of renal disease; Translations: [Anemia in chronic kidney disease] Chronic Disorders of lipid metabolism (2 sources) Hyperlipidemia; Translations: [Hyperlipidemia, unspecified] 09-20-2023 Chronic Essential hypertension (1 source) Benign essential hypertension; Translations: [Essential (primary) hypertension] 11-22-2017 Chronic Fracture of upper limb (11 sources) Closed fracture of right wrist; Translations: [Fracture of unspecified carpal bone, right wrist, initial encounter for closed fracture] Onset: 4 10-08-2023 Episodic Nausea and vomiting (1 source) Nausea and vomiting; Translations: [Nausea with vomiting, unspecified] Episodic Noninfectious gastroenteritis (1 source) Noninfective gastroenteritis and colitis, unspecified Episodic Other aftercare (2 sources) H/O: high risk medication; Translations: [Other longterm (current) drug therapy] Episodic Other aftercare (13 sources) Other longterm (current) drug therapy; Translations: [Long-term (current) use of other medications] Onset: 1 Resolved: 1 Episodic Other aftercare (2 sources) On lithium; Translations: [Other longterm (current) drug therapy] 09-19-2023 Episodic Other circulatory [...] ORIGN] Onset: 2 Chronic Other endocrine disorders (6 sources) Hyperparathyroidism; Translations: [Hyperparathyroidism, unspecified] 09-19-2023 Chronic Other endocrine disorders (4 sources) Hyperparathyroidism, unspecified; Translations: [Hyperparathyroidism, unspecified] Chronic Other eye disorders (4 sources) Downbeat nystagmus; Translations: [Other forms of nystagmus] Onset: 4 04-13-2024 Chronic Other eye disorders (2 sources) Dry eyes; Translations: [Dry eye syndrome of bilateral lacrimal glands] Onset: 4 04-13-2024 Episodic Other eye disorders (2 sources) Hypertropia of right eye; Translations: [Vertical strabismus, right eye] 05-23-2024 Episodic Other gastrointestinal disorders (2 sources) Constipation; Translations: [Constipation, unspecified] Onset: 5 Episodic Other gastrointestinal disorders (1 source) Swollen abdomen; Translations: [Right lower quadrant abdominal swelling, mass and lump] Episodic Other gastrointestinal disorders (1 source) Other constipation; Translations: [Other constipation] Onset: 4 Episodic Other nutritional; endocrine; and metabolic disorders (12 sources) Hypercalcemia; Translations: [Hypercalcemia] 09-19-2023 Chronic Other nutritional; endocrine; and metabolic disorders (10 sources) Hypermagnesemia; Translations: [Hypermagnesemia] Chronic Other nutritional; endocrine; and metabolic disorders (6 sources) Hypercalcemia; Translations: [Hypercalcemia] Onset: 1 Resolved: 1 Chronic Other nutritional; endocrine; and metabolic disorders (3 sources) Hypermagnesemia; Translations: [Hypermagnesemia E83.41] Onset: 1 Resolved: 1 Chronic Other nutritional; endocrine; and metabolic disorders (1 source) Body mass index 25-29 - overweight; Translations: [Body mass index (BMI) 25.0-25.9, adult] Episodic Other screening for suspected conditions (not mental disorders or infectious disease) (7 sources) Encounter for screening mammogram for malignant [...] [Pneumonia, unspecified organism] Episodic Residual codes; unclassified (4 sources) Hallucinations; Translations: [Hallucinations, unspecified] 03-11-2022 Episodic Residual codes; unclassified (2 sources) Hallucinations, unspecified; Translations: [Hallucinations] 03-11-2022 Episodic Residual codes; unclassified (1 source) Postmenopausal state; Translations: [Asymptomatic menopausal state] Episodic Residual codes; unclassified (1 source) Pain, unspecified; Translations: [Pain, unspecified] Onset: 4 Episodic Schizophrenia and other psychotic disorders (9 sources) 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 [...] left knee] Onset: 1 Urinary tract infections (6 sources) Urinary tract infectious disease; Translations: [Urinary [...] pain] Onset: 12-25-2014 Episodic Other gastrointestinal disorders (2 sources) Pelvic mass; Translations: [Intra-abdominal and pelvic swelling, mass and lump, unspecified site] Onset: 08-18-2019 Resolved: 11-22-2019 11-22-2019 Episodic Other gastrointestinal disorders (1 source) Chronic constipation; Translations: [Other constipation] 09-05-2023 Episodic Other nervous system disorders (2 sources) Postoperative pain ; Translations: [Other acute postprocedural [...] unspecified] Onset: 03-11-2014 Episodic Residual codes; unclassified (16 sources) History of total hysterectomy with bilateral [...] Test Name Value Interpretation Reference Range Facility Erythrocyte distribution wid th Auto (RBC) [Ratio]on 03-24-2024 Erythrocyte distribution width (RBC) [Ratio] 13.3 % 11.0-15.0 [facility] Estimated glomerular filtrat ion rate (GFR) non- Americanon 03-24-2024 GFR/1.73 sq M.predicted among non-blacks MDRD (S/P/Bld) [Vol rate/Area] 32 mL/min/{1.73_m2} Low >=60 mL/min/1.7 3m 2 [facility] Hematocrit Auto (Bld) [Volum e fraction]on 03-24-2024 Hematocrit (Bld) [Volume fraction] 39.7 % 36.0-48.0 [facility] Hemoglobin [Mass/volume] in Bloodon 03-24-2024 Hemoglobin (Bld) [Mass/Vol] 12.7 g/dL 12.0-16.0 [facility] Laboratory - Chemistry and C hemistry - challengeon 03-24-2024 Albumin [Mass/Vol] 3.5 g/dL 3.4-5.[address] [facility] Calcium [Mass/Vol] 10.2 mg/dL High 8.5-10.[address] [facility] Chloride [Moles/Vol] 111 mmol/L High 98-107 [facility] CO2 [Moles/Vol] 28.1 mmol/L 21.0-32.[address] [facility] Creatinine [Mass/Vol] 1.62 mg/dL High 0.55-1.02 [facility] GFR/1.73 sq M.predicted MDRD (S/P/Bld) [Vol rate/Area] 39 mL/min/{1.73_m2} Low >=60 mL/min/1.7 3m 2 [facility] Glucose [Mass/Vol] 93 mg/dL 74-[address] [facility] Magnesium [Mass/Vol] 2.3 mg/dL 1.8-2.4 [facility] Potassium [Moles/Vol] 4.2 mmol/L 3.5-5.1 [facility] Sodium [Moles/Vol] 148 mmol/L High 136-[address] [facility] Urate [Mass/Vol] 6.4 mg/dL High 2.6-6.[address] [facility] Urea nitrogen [Mass/Vol] 23.0 mg/dL High 7.0-18.0 [facility] Urea nitrogen/Creatinine [Mass ratio] 14.2 mg/mg [facility] Bilirubin Ql (U) Negative NEGATIVE [facility] Glucose (U) [Mass/Vol] Negative NEGATIVE [facility] Ketones Ql (U) Negative NEGATIVE [facility] pH (U) 6.0 [pH] 5.0-9.0 [facility] Specific gravity (U) [Rel density] <=1.005 Abnormal 1.005-1.02 5 [facility] Urobilinogen Qn (U) 0.2 {Destiny'U}/dL 0.2-1.0 [facility] Laboratory - Specimen inform ationon 03-24-2024 Appearance (U) CLEAR CLEAR [facility] Color (U) LT. YELLOW YELLOW [facility] Laboratory - Urinalysison Leukocyte esterase Test strip Ql (U) SMALL Abnormal NEGATIVE [facility] Mucus Ql (Urine sed) NONE SEEN NONE SEEN [facility] Nitrite Ql (U) Negative NEGATIVE [facility] Protein Ql (U) Negative NEG/TRACE [facility] Leukocytes [#/volume] correc prashanth for nucleated erythrocytes in Blood by Automated counon 03-24-2024 WBC corrected for nucl RBC Auto (Bld) [#/Vol] 7.4 10 3/uL 4.0-11.0 [facility] MCH Auto (RBC) [Entitic mass ]on 03-24-2024 MCH (RBC) [Entitic mass] 32.3 pg 26.7-34.0 [facility] MCHC Auto (RBC) [Mass/Vol]on 03-24-2024 MCHC (RBC) [Mass/Vol] 32.0 g/dL 29.9-35.2 [facility] MCV Auto (RBC) [Entitic vol] on 03-24-2024 MCV (RBC) [Entitic vol] 101.0 fL High 81.0-99.0 [facility] No Panel Informationon 03-24 25-Hydroxy Vitamin D Total 30.0 ng/mL [facility] Comment on above: <20 ng/mL Vit D defi cient20-<30 ng/mL Vit D [id number] ng/mL Vit D sufficient>100 ng/mL Potential Toxicity Parathyroid Hormone (Intact) 69 pg/mL Abnormal 15-65 [facility] Comment on above: Performed at: [employer] - [facility] [address] Director: Giovany Akbar PhD, Phone: [phone] Phosphorus Level 4.6 mg/dL 2.6-4.[address] [facility] Urine Bacteria TRACE #/HPF Abnormal NONE SEEN [facility] Urine Occult Blood Negative NEGATIVE [facility] Urine Other Casts NONE SEEN #/LPF NONE SEEN [facility] Urine Other Crystals None Seen #/HPF None Seen [facility] Urine Random Creatinine 32.98 mg/dL 20.00-300. 00 [facility] Urine Random Total Protein <6.0 mg/dL <=11.9 [facility] Urine RBC 0-2 #/HPF 0-2 [facility] Urine Squamous Epithelial Cells RARE #/LPF NONE/RARE [facility] Urine WBC 5-10 #/HPF Abnormal NONE SEEN [facility] Platelet mean volume Auto (B ld) [Entitic vol]on 03-24-2024 Platelet mean volume (Bld) [Entitic vol] 9.8 fL 9.5-13.5 [facility] Platelets Auto (Bld) [#/Vol] on 03-24-2024 Platelets (Bld) [#/Vol] 241 10 3/uL 150-450 [facility] RBC Auto (Bld) [#/Vol]on RBC (Bld) [#/Vol] 3.93 10 6/uL Low 4.20-5.40 [facility] Serum or plasma anion gap de terminationon 03-24-2024 Anion gap [Moles/Vol] 13.1 mmol/L [facility] Urine protein/creatinine rat ioon 03-24-2024 Protein/Creatinine (U) [Ratio] 0.18 [facility] No Panel Informationon 01-31 Penelope Level 0.8 mmol/L 0.5-1.2 [facility] Comment on above: A concentration of 0 .5-0.8 mmol/L is advised for long-termuse; concentrations of up to 1.2 mmol/L may be necessaryduring acute treatment. Detection Limit = 0.1 <0.1 indicates None DetectedPerformed at: [facility] [place] [id number] Director: Giovany Akbar PhD, Phone: [phone] XR Wrist - right 2 Viewson 0 01-31-2024 Imaging Result: January 29 and 2023 x-rays AP and lateral of the right wrist demonstrate a fracture of the distal radius. Which is healed with reversal volar tilt. There are no new fractures identified. Impression: Healed distal radius fracture right wrist Khang Valentin D.O. [facility] XR Wrist - right 2 ViewsOrde red By: Steve Valentin on 01-31-2024 [facility] Work Phone: XR Wrist - right 2 View[facility] 0 01-30-2024 Radiology Study observation (narrative) [facility] XR WRIST RIGHT (MIN 3 VIEWS) on [...] Channing Jasso MD 10/08/23 Final result Normal [facility] XR Wrist - right 3 Viewson 0 10-08-2023 Nondisplaced fractur e of the distal radius. Fracture of the ulna styloid. [facility] RIS CONSOLIDATED EXAMINATION: XRAY VIEWS OF THE [...] spaces appear well maintained. Soft tissue swelling. [facility] Channing Jasso MD - 10/08/2023 [...] distal radius. Fracture of the ulna styloid. [facility] Radiology Study observation (narrative) [facility] XR Wrist - right 3 ViewsOrde red By: Channing Jasso on 10-08-2023 [facility] Work Phone: Estimated glomerular filtrat ion rate (GFR) non- Americanon 08-29-2023 GFR/1.73 sq M.predicted among non-blacks MDRD (S/P/Bld) [Vol rate/Area] 39 mL/min/{1.73_m2} >=60 [facility] Laboratory - Chemistry and C hemistry - challengeon 08-29-2023 Albumin [Mass/Vol] 3.6 g/dL 3.4-5.[address] [facility] Calcium [Mass/Vol] 9.6 mg/dL 8.5-10.[address] [facility] Chloride [Moles/Vol] 107 mmol/L 98-107 [facility] CO2 [Moles/Vol] 28.7 mmol/L 21.0-32.[address] [facility] Creatinine [Mass/Vol] 1.37 mg/dL 0.55-1.02 [facility] GFR/1.73 sq M.predicted MDRD (S/P/Bld) [Vol rate/Area] 47 mL/min/{1.73_m2} >=60 [facility] Glucose [Mass/Vol] 92 mg/dL 74-[address] [facility] Potassium [Moles/Vol] 4.2 mmol/L 3.5-5.1 [facility] Sodium [Moles/Vol] 142 mmol/L 136-[address] [facility] Urea nitrogen [Mass/Vol] 26.0 mg/dL 7.0-18.0 [facility] Urea nitrogen/Creatinine [Mass ratio] 19.0 mg/mg [facility] No Panel Informationon 08-28 25-Hydroxy Vitamin D Total 32.2 ng/mL [facility] Comment on above: <20 ng/mL Vit D defi cient20-<30 ng/mL Vit D [id number] ng/mL Vit D sufficient>100 ng/mL Potential Toxicity Miscellaneous Test COMMENT . [facility] Comment on above: Test Ordered: [id number] Ca+PTH IntactCalcium 10.0 mg/dL CB Reference Range: 8.7-10.3PTH, Intact 62 pg/mL CB Reference Range: 15-65Intact PTH Comment CB Reference Range: .Interpretation Intact PTH Calcium (pg/mL) (mg/dL)Normal 15 - 65 8.6 - 10.2Primary Hyperparathyroidism >65 >10.2Secondary Hyperparathyroidism >65 <10.2Non-Parathyroid Hypercalcemia <65 >10.2Hypoparathyroidism <15 < 8.6Non-Parathyroid Hypocalcemia 15 - 65 < 8.6Performed at: [facility] - [facility] [id number] [place], [place] [id number] Director: Giovany Akbar PhD, Phone: [phone] Phosphorus Level 4.1 mg/dL 2.6-4.[address] [facility] Serum or plasma anion gap de terminationon 08-29-2023 Anion gap [Moles/Vol] 10.5 mmol/L [facility] LITHIUMon 05-27-2022 Penelope (Eskalith(R)), Serum 1.2 mmol/L Normal 0.5-1.2 [facility] Comment on above: Result Comment: A co ncentration of 0.5-0.8 mmol/L is advised for long-term use; concentrations of up to 1.2 mmol/L may be necessary during acute treatment. Detection Limit = 0.1 <0.1 indicates None Detected Performed By: #### L ITHIUM #### [facility] [address] [address] [address] Emanuel Degroot RENAL FUNCTION PANELon 05-08 Albumin [Mass/Vol] 3.7 g/dL Normal 3.4-5.0 [facility] Comment on above: Performed By: #### R ENAL #### [facility] [address] [address] [address] Emanuel Degroot Calcium [Mass/Vol] 9.5 mg/dL Normal 8.5-10.1 [facility] Comment on above: Performed By: #### R ENAL #### [facility] [address] [address] [address] Emanuel Degroot Chloride [Moles/Vol] 106 mmol/L Normal 98-107 [facility] Comment on above: Performed By: #### R ENAL #### [facility] [address] [address] [address] Emanuel Degroot CO2 [Moles/Vol] 29.2 mmol/L Normal 21.0-32.0 [facility] Comment on above: Performed By: #### R ENAL #### [facility] [address] [address] [address] Emanuel Degroot Creatinine [Mass/Vol] 1.30 mg/dL Critically high 0.55-1.02 [facility] Comment on above: Performed By: #### R ENAL #### [facility] [address] [address] [address] Emanuel Degroot EGFR-AF GUATEMALAN 50 mL/min/1.73m2 Critically low >=60 [facility] Comment on above: Performed By: #### R ENAL #### [facility] [address] [address] [address] Emanuel Degroot EGFR-NON AF GUATEMALAN 42 mL/min/1.73m2 Critically low >=60 [facility] Comment on above: Performed By: #### R ENAL #### [facility] [address] [address] [address] Emanuel Degroot Glucose [Mass/Vol] 96 mg/dL Normal 74-106 [facility] Comment on above: Performed By: #### R ENAL #### [facility] [address] [address] [address] Emanuel Degroot Phosphate [Mass/Vol] 4.1 mg/dL Normal 2.6-4.7 [facility] Comment on above: Performed By: #### R ENAL #### [facility] [facility] [address] [address] [address] Emanuel Degroot Potassium [Moles/Vol] 4.0 mmol/L Normal 3.5-5.1 [facility] Comment on above: Performed By: #### R ENAL #### [facility] [address] [address] [address] Emanuel Degroot Sodium [Moles/Vol] 140 mmol/L Normal 136-145 [facility] Comment on above: Performed By: #### R ENAL #### [facility] [address] [address] [address] Emanuel Degroot Urea nitrogen [Mass/Vol] 18.0 mg/dL Normal 7.0-18.0 [facility] Comment on above: Performed By: #### R ENAL #### [facility] [address] [address] [address] Emanuel Degroot MG MAMM SCREEN TERRA W CADon 1 06-08-2021 MG MAMM SCREEN TERRA W CAD Patient: NOLA WALLER Exam Date: 04/08/2022 : 1960 Gender:F Ordering : DR SANTA AUGUSTIN M.D. Admission #: [id number] Family : Order #: [id number] CLICK HERE TO VIEW EXAM RADIOLOGY REPORT [...] colon cancer at age 55. LOCATION: [facility] BREAST COMPOSITION: Scattered areas fibroglandular density. FINDINGS: [...] Delgado MD on 04/08/2022 at 13:40 Normal [facility] US EXT NON VASC LIMITED RTon 04-08-2022 [...] by: DENTON DELGADO Date: 2022-04-08 18:20 Normal [facility] Albumin [Mass/volume] in Ser um or PlasmaOrdered By: Horacio Kim on 03-19-2022 Albumin [Mass/Vol] 3.3 g/dL 3.2-5.[address] [facility] Comprehensive Metabolic Pane sanjeev 03-19-2022 Albumin [Mass/Vol] 3.3 g/dL Normal 3.2-5.[address] [facility] Comment on above: Performed By: #### C MP #### [address] Albumin/Globulin [Mass ratio] 1.3 {ratio} Normal [facility] Comment on above: Performed By: #### C MP #### [address] ALP [Catalytic activity/Vol] 38 U/L Normal 32-92 [facility] Comment on above: Performed By: #### C MP #### [address] ALT [Catalytic activity/Vol] 22 U/L Normal 10-60 [facility] Comment on above: Performed By: #### C MP #### [address] Anion gap [Moles/Vol] 9.6 mmol/L Normal 6.0-15.0 [facility] Comment on above: Performed By: #### C MP #### [address] AST [Catalytic activity/Vol] 19 U/L Normal 10-42 [facility] Comment on above: Performed By: #### C MP #### [address] Bilirubin [Mass/Vol] 0.5 mg/dL Normal 0.3-1.2 [facility] Comment on above: Performed By: #### C MP #### [facility] [address] Calcium [Mass/Vol] 9.6 mg/dL Normal 8.2-10.[address] [facility] Comment on above: Performed By: #### C MP #### [facility] [address] Chloride [Moles/Vol] 110 mmol/L Normal 95-114 [facility] Comment on above: Performed By: #### C MP #### [address] CO2 [Moles/Vol] 26.6 mmol/L Normal 22.0-30.[address] [facility] Comment on above: Performed By: #### C MP #### [address] Creatinine [Mass/Vol] 1.26 mg/dL High 0.44-1.03 [facility] Comment on above: Performed By: #### C MP #### [address] Creatinine Clr Calc Pharmacy 44.02 [facility] Comment on above: Result Comment: PERF ORMED BY: [place] [address] PATHOLOGIST [employer] KRISTI TURNER M.D. Performed By: #### C MP #### [address] Estimated GFR ( Katrina 52 [facility] Comment on above: Result Comment: GFR estimated reference range: According to KDOQI guidelines, <60 ml/min/1.73m2 is sufficient to diagnose a patient with chronic kidney disease. Performed By: #### C MP #### [address] Estimated GFR (Non- Am 43 [facility] Comment on above: Performed By: #### C MP #### [address] Globulin (S) [Mass/Vol] 2.6 g/dL Normal [facility] Comment on above: Performed By: #### C MP #### [facility] [address] Glucose [Mass/Vol] 95 mg/dL Normal 70-[address] [facility] Comment on above: Result Comment: [facility] Glucose Reference Range is dependent on time and content of last meal. Glucose of more than 200 mg/dL in a nonstressed, ambulatory subject supports the diagnosis of Diabetes Mellitus. ADA recommended reference range Performed By: #### C MP #### [facility] [address] Potassium [Moles/Vol] 4.2 mmol/L Normal 3.5-5.1 [facility] Comment on above: Performed By: #### C MP #### [facility] [address] Protein [Mass/Vol] 5.9 g/dL Low 6.1-7.[address] [facility] Comment on above: Performed By: #### C MP #### [facility] [address] Sodium [Moles/Vol] 142 mmol/L Normal 136-[address] [facility] Comment on above: Performed By: #### C MP #### [facility] [address] [place] [address] [place] Urea nitrogen [Mass/Vol] 28 mg/dL High 9-23 [facility] Comment on above: Performed By: #### C MP #### [address] Creatinine and Glomerular fi ltration rate.predicted panel (S/P/Bld)Ordered By: Horacio Kim on 03-19-2022 Creatinine [Mass/Vol] 1.26 mg/dL 0.44-1.03 [facility] Estimated glomerular filtrat ion rate (GFR) non- AmericanOrdered By: Horacio Kim on 03-19-2022 GFR/1.73 sq M.predicted among non-blacks MDRD (S/P/Bld) [Vol rate/Area] 43 mL/Min [facility] Globulin Calc (S) [Mass/Vol] Ordered By: Horacio Kim on 03-19-2022 Globulin (S) [Mass/Vol] 2.6 g/dL [facility] No Panel InformationOrdered By: Horacio Kim on 03-19-2022 Estimated GFR () 52 mL/Min [facility] Comment on above: GFR estimated refere nce range: According to KDOQI guidelines, <60 ml/min/1.73m2 is sufficient to diagnose a patient with chronic kidney disease. Pharmacy Creatinine Clearance (Chem 44.02 [facility] Protein [Mass/volume] in Ser um or PlasmaOrdered By: Horacio Kim on 03-19-2022 Protein [Mass/Vol] 5.9 g/dL 6.1-7.[address] [facility] Serum or plasma alanine arora otransferase measurement without P-5'-P (enzymatic activiOrdered By: Horacio Kim on 03-19-2022 ALT No additional P-5'-P [Catalytic activity/Vol] 22 U/L 10-60 [facility] Serum or plasma albumin/glob ulin mass ratioOrdered By: Horacio Kim on 03-19-2022 Albumin/Globulin [Mass ratio] 1.3 {ratio} [facility] Serum or plasma alkaline lashaun sphatase measurement (enzymatic activity/volume)Ordered By: Horacio Kim on 03-19-2022 ALP [Catalytic activity/Vol] 38 U/L 32-92 [facility] Serum or plasma anion gap de terminationOrdered By: Horacio Kim on 03-19-2022 Anion gap [Moles/Vol] 9.6 mmol/L 6.0-15.0 [facility] Serum or plasma aspartate am inotransferase measurement (enzymatic activity/volume)Ordered By: Horacio Kim on 03-19-2022 AST [Catalytic activity/Vol] 19 U/L 10-42 [facility] Serum or plasma calcium sunil urement (mass/volume)Ordered By: Horacio Kim on 03-19-2022 Calcium [Mass/Vol] 9.6 mg/dL 8.2-10.[address] [facility] Serum or plasma chloride leo surement (moles/volume)Ordered By: Horacio Kim on 03-19-2022 Chloride [Moles/Vol] 110 mmol/L 95-114 [facility] Serum or plasma glucose sunil urement (mass/volume)Ordered By: Horacio Kim on 03-19-2022 Glucose [Mass/Vol] 95 mg/dL 70-[address] [facility] Comment on above: ADA recommended refe rence rangeRandom Glucose Reference Range is dependent on time and content of last meal. Glucose of more than 200 mg/dL in a nonstressed, ambulatory subject supports the diagnosis of Diabetes Mellitus. Serum or plasma potassium me asurement (moles/volume)Ordered By: Horacio Kim on 03-19-2022 Potassium [Moles/Vol] 4.2 mmol/L 3.5-5.1 [facility] Serum or plasma sodium measu rement (moles/volume)Ordered By: Horacio Kim on 03-19-2022 Sodium [Moles/Vol] 142 mmol/L 136-[address] [facility] Serum or plasma total biliru bin measurement (mass/volume)Ordered By: Horacio Kim on 03-19-2022 Bilirubin [Mass/Vol] 0.5 mg/dL 0.3-1.2 [facility] Serum or plasma total carbon dioxide measurement (moles/volume)Ordered By: Horacio Kim on 03-19-2022 CO2 [Moles/Vol] 26.6 mmol/L 22.0-30.[address] [facility] Serum or plasma urea nitroge n measurement (mass/volume)Ordered By: Horacio Kim on 03-19-2022 Urea nitrogen [Mass/Vol] 28 mg/dL 9-23 [facility] Urine culture routineOrdered By: Ruby Penn on 03-13-2022 Bacteria identified Cx Nom (U) 2 Days [facility] Glucose Glucometer (BldC) [M ass/Vol]Ordered By: Marco A Zaman on 03-12-2022 Glucose [Mass/Vol] 120 mg/dL [facility] Comment on above: Random Glucose Refer ence Range is dependent on time and content of last meal. Glucose of more than 200 mg/dL in a nonstressed, ambulatory subject supports the diagnosis of Diabetes Mellitus. Glucose Poct Glucometerson 1 Commemt1 Normal [facility] Comment on above: Result Comment: Glu2 : Procedure Error PERFORMED BY: [place] [address] PATHOLOGIST [employer] KRISTI TURNER M.D. Performed By: #### L IPID, TSH3 wRFLX, [id number] #### [facility] [address] [place] [address] Glucose [Mass/Vol] 120 mg/dL Normal [facility] Comment on above: Result Comment: [place] Glucose Reference Range is dependent on time and content of last meal. Glucose of more than 200 mg/dL in a nonstressed, ambulatory subject supports the diagnosis of Diabetes Mellitus. Performed By: #### L IPID, TSH3 wRFLX, [id number] #### [facility] [address] [place] [address] Amphetamine Screen Ql (U)Ord ered By: Ruby Penn on 03-11-2022 Amphetamines Ql (U) Negative Negative [facility] Automated erythrocytes count in urine sediment (number/area)Ordered By: Ruby Penn on 03-11-2022 RBC Auto (Urine sed) [#/Area] None seen [HPF] 0-4 [facility] Automated leukocytes count i n urine sediment (number/area)Ordered By: Ruby Penn on 03-11-2022 WBC Auto (Urine sed) [#/Area] 10-19 [HPF] 0-4 [facility] Barbiturates [Presence] in U rineOrdered By: Ruby Penn on 03-11-2022 Barbiturates Ql (U) Negative Negative [facility] Basophils Auto (Bld) [#/Vol] Ordered By: Ruby Penn on 03-11-2022 Basophils (Bld) [#/Vol] 0.1 10*3/uL 0.0-0.2 [facility] Basophils/100 WBC Auto (Bld) Ordered By: Ruby Henrydoris on 03-11-2022 Basophils/100 WBC (Bld) 0.8 % . [facility] Benzodiazepines [Presence] i n UrineOrdered By: Ruby Penn on 03-11-2022 Benzodiazepines Ql (U) Negative Negative [facility] Bilirubin Test strip Ql (U)O rdered By: Ruby Penn on 03-11-2022 Bilirubin Ql (U) Negative Negative [facility] Blood hemoglobin measurement (mass/volume)Ordered By: Ruby Penn on 03-11-2022 Hemoglobin (Bld) [Mass/Vol] 13.5 g/dL 11.8-15.4 [facility] Blood leukocytes automated c ount (number/volume)Ordered By: Ruby Penn on 03-11-2022 WBC (Bld) [#/Vol] 10.1 10*3/uL 4.5-11.0 [facility] Body fluid albumin measureme nt (mass/volume)Ordered By: Rubypayton Penn on 03-11-2022 Albumin (Body fld) [Mass/Vol] 3.9 g/dL 3.2-5.5 [facility] COVID-19 Antigenon 2 COVID-19 Antigen [...] developed and its performance characteristic determined by [employer] and validated at [facility]. This test has not been [...] for SARS Antigen by [employer] PERFORMED BY: [place] [address] PATHOLOGIST [employer] KRISTI TURNER M.D. [facility] Comment on above: Performed By: #### C OVID-19 DEMETRIA, SOFIANEG #### [address] COVID-19 SOFIAOrdered By: Joseph Penn on 03-11-2022 SARS-CoV+SARS-CoV-2 (COVID-19) Ag IA.rapid Ql (Resp) Negative Negative [facility] Comment on above: This is a duplicate Demetria SARS Antigen ([employer]) result to be used for statistical tracking purpose only. Cannabinoids [Presence] in U rine by Screen methodOrdered By: Ruby Penn on 03-11-2022 Cannabinoids Screen Ql (U) Negative Negative [facility] Comment on above: These are unconfirme d results and should not be used for legal purposes. Drug Cut-Off Concentration: AMPH 1000 ng/mL LAINA 200 ng/mL AYLEEN 200 ng/mL COCM 300 ng/mL OP 300 ng/mL PCP 25 ng/mL THC 20 ng/mL Cholesterol [Mass/volume] in Serum or PlasmaOrdered By: Marco A Zaman on 03-11-2022 Cholesterol [Mass/Vol] 208 mg/dL 140-200 [facility] Comment on above: Chol less than 200 m g/dl low riskChol 201-239 mg/dl borderline riskChol 240 mg/dl and greater high risk Cholesterol in LDL Calc [Mas s/Vol]Ordered By: Marco A Zaman on 03-11-2022 Cholesterol in LDL [Mass/Vol] 120 mg/dL 0-100 [facility] Comment on above: LDL ATP III CLASSIFI CATIONLDL less than 100 mg/dL OptimalLDL 100-129 mg/dL Near or above optimalLDL 130-159 mg/dL Borderline highLDL 160-189 mg/dL HighLDL greater than 189 mg/dL Very high Cholesterol in VLDL Calc [Ma ss/Vol]Ordered By: Marco A Zaman on 03-11-2022 Cholesterol in VLDL [Mass/Vol] 30 mg/dL [facility] Color Auto (U)Ordered By: Joseph Penn on 03-11-2022 Color (U) Yellow Yellow [facility] Comprehensive Metabolic Pane sanjeev 03-11-2022 Albumin [Mass/Vol] 3.9 g/dL Normal 3.2-5.[address] [facility] Comment on above: Performed By: #### L IPID, TSH3 wRFLX, [id number] #### [facility] [address] [place] [address] Albumin/Globulin [Mass ratio] 1.2 {ratio} Normal [facility] Comment on above: Performed By: #### L IPID, TSH3 wRFLX, [id number] #### [facility] [address] [place] [address] [place] ALP [Catalytic activity/Vol] 45 U/L Normal 32-92 [facility] Comment on above: Performed By: #### L IPID, TSH3 wRFLX, [id number] #### [facility] [address] [place] [address] [place] ALT [Catalytic activity/Vol] 22 U/L Normal 10-60 [facility] Comment on above: Performed By: #### L IPID, TSH3 wRFLX, [id number] #### [facility] [address] [place] [address] Anion gap [Moles/Vol] 17.0 mmol/L High 6.0-15.0 [facility] Comment on above: Performed By: #### L IPID, TSH3 wRFLX, [id number] #### [facility] [address] [place] [address] AST [Catalytic activity/Vol] 21 U/L Normal 10-42 [facility] Comment on above: Performed By: #### L IPID, TSH3 wRFLX, [id number] #### [facility] [address] [place] [address] Bilirubin [Mass/Vol] 0.8 mg/dL Normal 0.3-1.2 [facility] Comment on above: Performed By: #### L IPID, TSH3 wRFLX, [id number] #### [facility] [address] [place] [address] Calcium [Mass/Vol] 10.1 mg/dL Normal 8.2-10.[address] [facility] Comment on above: Performed By: #### L IPID, TSH3 wRFLX, [id number] #### [facility] [address] [place] [address] Chloride [Moles/Vol] 102 mmol/L Normal 95-114 [facility] Comment on above: Performed By: #### L IPID, TSH3 wRFLX, [id number] #### [facility] [address] [place] [address] CO2 [Moles/Vol] 24.9 mmol/L Normal 22.0-30.[address] [facility] Comment on above: Performed By: #### L IPID, TSH3 wRFLX, [id number] #### [facility] [address] [place] [address] [place] Creatinine [Mass/Vol] 1.49 mg/dL High 0.44-1.03 [facility] Comment on above: Performed By: #### L IPID, TSH3 wRFLX, [id number] #### [place] [address] [place] Creatinine Clr Calc Pharmacy 37.23 [facility] Comment on above: Result Comment: PERF ORMED BY: [place] [address] PATHOLOGIST [employer] KRISTI TURNER M.D. Performed By: #### L IPID, TSH3 wRFLX, [id number] #### [facility] [address] [place] [address] Estimated GFR ( Katrina 43 [facility] Comment on above: Result Comment: GFR estimated reference range: According to KDOQI guidelines, <60 ml/min/1.73m2 is sufficient to diagnose a patient with chronic kidney disease. Performed By: #### L IPID, TSH3 wRFLX, [id number] #### [address] Estimated GFR (Non- Am 35 [facility] Comment on above: Performed By: #### L IPID, TSH3 wRFLX, [id number] #### [address] Globulin (S) [Mass/Vol] 3.2 g/dL [facility] Comment on above: Performed By: #### L IPID, TSH3 wRFLX, [id number] #### [address] Glucose [Mass/Vol] 95 mg/dL Normal 70-[address] [facility] Comment on above: Result Comment: [facility] Glucose Reference Range is dependent on time and content of last meal. Glucose of more than 200 mg/dL in a nonstressed, ambulatory subject supports the diagnosis of Diabetes Mellitus. ADA recommended reference range Performed By: #### L IPID, TSH3 wRFLX, [id number] #### [facility] [address] [place] [address] Potassium [Moles/Vol] 3.9 mmol/L Normal 3.5-5.1 [facility] Comment on above: Performed By: #### L IPID, TSH3 wRFLX, [id number] #### [facility] [address] [place] [address] Protein [Mass/Vol] 7.1 g/dL Normal 6.1-7.[address] [facility] Comment on above: Performed By: #### L IPID, TSH3 wRFLX, [id number] #### [facility] [address] [place] [address] Sodium [Moles/Vol] 140 mmol/L Normal 136-[address] [facility] Comment on above: Performed By: #### L IPID, TSH3 wRFLX, [id number] #### [facility] [address] [place] [address] Urea nitrogen [Mass/Vol] 30 mg/dL High - [facility] Comment on above: Performed By: #### L IPID, TSH3 wRFLX, [id number] #### [address] Creatinine and Glomerular fi ltration rate.predicted panel (S/P/Bld)Ordered By: Ruby Penn on 03-11-2022 Creatinine [Mass/Vol] 1.49 mg/dL 0.44-1.03 [facility] Dipstick and Microscopicon 1 Appearance (U) Clear Normal Clear [facility] Comment on above: Order Comment: Name Collection Type:: Clean-Voided Midstream Performed By: #### C UU, ADDONUAPLUS, UHCG, URDS #### [facility] [address] [place] [address] [place] Bacteria,Urine None Seen Normal None Seen [facility] Comment on above: Order Comment: Name Collection Type:: Clean-Voided Midstream Performed By: #### C UU, ADDONUAPLUS, UHCG, URDS #### [facility] [address] [place] [address] [place] Bilirubin,Urine Negative Normal Negative [facility] Comment on above: Order Comment: Name Collection Type:: Clean-Voided Midstream Performed By: #### C UU, ADDONUAPLUS, UHCG, URDS #### [address] [place] [address] [place] Color (U) Yellow Normal Yellow [facility] Comment on above: Order Comment: Name Collection Type:: Clean-Voided Midstream Performed By: #### C UU, ADDONUAPLUS, UHCG, URDS #### [facility] [address] [place] [address] [place] Glucose Ql (U) Normal Normal Normal [facility] Comment on above: Order Comment: Name Collection Type:: Clean-Voided Midstream Performed By: #### C UU, ADDONUAPLUS, UHCG, URDS #### [facility] [address] [place] [address] [place] Hyaline Casts,Urine None Seen Normal 0-8 [facility] Comment on above: Order Comment: Name Collection Type:: Clean-Voided Midstream Performed By: #### C UU, ADDONUAPLUS, UHCG, URDS #### [facility] [address] [place] [address] Ketones Ql (U) Negative Normal Negative [facility] Comment on above: Order Comment: Name Collection Type:: Clean-Voided Midstream Performed By: #### C UU, ADDONUAPLUS, UHCG, URDS #### [facility] [address] [place] [address] [place] Leukocyte esterase Test strip Ql (U) 3+ High Negative [facility] Comment on above: Order Comment: Name Collection Type:: Clean-Voided Midstream Performed By: #### C UU, ADDONUAPLUS, UHCG, URDS #### [facility] [address] [place] [address] [place] Nitrite,Urine Negative Normal Negative [facility] Comment on above: Order Comment: Name Collection Type:: Clean-Voided Midstream Performed By: #### C UU, ADDONUAPLUS, UHCG, URDS #### [facility] [address] [place] [address] [place] Occult Blood,Urine Negative Normal Negative [facility] Comment on above: Order Comment: Name Collection Type:: Clean-Voided Midstream Performed By: #### C UU, ADDONUAPLUS, UHCG, URDS #### [address] pH (U) 6.5 [pH] Normal 5.0-9.0 [facility] Comment on above: Order Comment: Name Collection Type:: Clean-Voided Midstream Performed By: #### C UU, ADDONUAPLUS, UHCG, URDS #### [address] Protein,Urine Negative Normal Negative [facility] Comment on above: Order Comment: Name Collection Type:: Clean-Voided Midstream Performed By: #### C UU, ADDONUAPLUS, UHCG, URDS #### [address] RBC,Urine None Seen Normal 0-4 [facility] Comment on above: Order Comment: Name Collection Type:: Clean-Voided Midstream Performed By: #### C UU, ADDONUAPLUS, UHCG, URDS #### [address] Specificy [place],Urine 1.007 Normal 1.001-1.03 0 [facility] Comment on above: Order Comment: Name Collection Type:: Clean-Voided Midstream Performed By: #### C UU, ADDONUAPLUS, UHCG, URDS #### [address] Squamous Epithelial Cell,Urine 0-1 Normal 0-2 [facility] Comment on above: Order Comment: Name Collection Type:: Clean-Voided Midstream Performed By: #### C UU, ADDONUAPLUS, UHCG, URDS #### [address] Urobilinogen,Urine Normal Normal Normal [facility] Comment on above: Order Comment: Name Collection Type:: Clean-Voided Midstream Performed By: #### C UU, ADDONUAPLUS, UHCG, URDS #### [address] [address] [place] WBC,Urine -19 High 0-4 [facility] Comment on above: Order Comment: Name Collection Type:: Clean-Voided Midstream Performed By: #### C UU, ADDONUAPLUS, UHCG, URDS #### [address] Drug Screen,Urineon 03-11-20 Amphetamine Screen,Urine Negative Normal Negative [facility] Comment on above: Performed By: #### C UU, ADDONUAPLUS, UHCG, URDS #### [address] Barbiturate Screen,Urine Negative Normal Negative [facility] Comment on above: Performed By: #### C UU, ADDONUAPLUS, UHCG, URDS #### [address] Benzodiazepines Screen,Urine Negative Normal Negative [facility] Comment on above: Performed By: #### C UU, ADDONUAPLUS, UHCG, URDS #### [address] Cannabinoid Screen,Urine Negative Normal Negative [facility] Comment on above: Result Comment: Thes e are unconfirmed results and should not be used for legal purposes. Drug Cut-Off Concentration: AMPH 1000 ng/mL LAINA 200 ng/mL AYLEEN 200 ng/mL COCM 300 ng/mL OP 300 ng/mL PCP 25 ng/mL THC 20 ng/mL PERFORMED BY: [place] [address] PATHOLOGIST [employer] KRISTI TURNER M.D. Performed By: #### C UU, ADDONUAPLUS, UHCG, URDS #### [address] Cocaine Screen,Urine Negative Normal Negative [facility] Comment on above: Performed By: #### C UU, ADDONUAPLUS, UHCG, URDS #### [address] Opiate Screen,Urine Negative Normal Negative [facility] Comment on above: Performed By: #### C UU, ADDONUAPLUS, UHCG, URDS #### [facility] [address] Phencyclidine Screen,Urine Negative Normal Negative [facility] Comment on above: Performed By: #### C UU, ADDONUAPLUS, UHCG, URDS #### [facility] [address] [place] [address] [place] Eosinophils Auto (Bld) [#/Vo l]Ordered By: Ruby Penn on 03-11-2022 Eosinophils (Bld) [#/Vol] 2.1 10*3/uL 0.0-0.45 [facility] Eosinophils/100 WBC Auto (Bl d)Ordered By: Ruby Penn on 03-11-2022 Eosinophils/100 WBC (Bld) 20.9 % . [facility] Erythrocyte distribution wid th Auto (RBC) [Ratio]Ordered By: Ruby Penn on 03-11-2022 Erythrocyte distribution width (RBC) [Ratio] 14.3 % 11.9-15.3 [facility] Estimated glomerular filtrat ion rate (GFR) non- AmericanOrdered By: Ruby Penn on 03-11-2022 GFR/1.73 sq M.predicted among non-blacks MDRD (S/P/Bld) [Vol rate/Area] 35 mL/Min [facility] Ethyl Alcohol Profileon Ethanol [Mass/Vol] mg/dL Normal [facility] Comment on above: Performed By: #### L IPID, TSH3 wRFLX, [id number] #### [facility] [address] [place] [address] [place] Percent Ethanol Not performed Normal [facility] Comment on above: Result Comment: PERF ORMED BY: [place] [address] PATHOLOGIST [employer] KRISTI TURNER M.D. Performed By: #### L IPID, TSH3 wRFLX, [id number] #### [facility] [address] [place] [address] [place] Globulin Calc (S) [Mass/Vol] Ordered By: Ruby Penn on 03-11-2022 Globulin (S) [Mass/Vol] 3.2 g/dL [facility] HCG ( test) IA.rapi d Ql (U)Ordered By: Ruby Penn on 03-11-2022 HCG ( test) Ql (U) Negative [facility] HCG,Urineon 03-11-2022 Beta HCG ( test) Ql (U) Negative Normal [facility] Comment on above: Order Comment: Name Collection Type:: Clean-Voided Midstream Result Comment: PERF ORMED BY: [place] [address] PATHOLOGIST [employer] KRISTI TURNER M.D. Performed By: #### C UU, ADDONUAPLUS, UHCG, URDS #### [facility] [address] [place], [place] [id number] [facility] Hematocrit Auto (Bld) [Volum e fraction]Ordered By: Ruby Penn on 03-11-2022 Hematocrit (Bld) [Volume fraction] 40.8 % 34.0-46.4 [facility] Ketones Auto test strip (U) [Mass/Vol]Ordered By: Ruby Penn on 03-11-2022 Ketones (U) [Mass/Vol] Negative Negative [facility] - Drug toxicology Ordered By: Ruby Penn on 03-11-2022 Opiates Ql (U) Negative Negative [facility] Laboratory - Hematology and Cell countsOrdered By: Ruby Penn on 03-11-2022 Nucleated RBC/100 WBC (Bld) [Ratio] 0.1 % 0-0.5 [facility] Laboratory - UrinalysisOrder ed By: Ruby Penn on 03-11-2022 Hyaline casts LM Ql (Urine sed) None seen [LPF] 0-8 [facility] Lipid Panelon 03-11-2022 Cholesterol [Mass/Vol] 208 mg/dL High 140-200 [facility] Comment on above: Order Comment: Comme nt use ER blood Result Comment: Chol less than 200 mg/dl low risk Chol 201-239 mg/dl borderline risk Chol 240 mg/dl and greater high risk Performed By: #### L IPID, TSH3 wRFLX, [id number] #### [facility] [address] [place] [id number] [facility] Cholesterol in HDL [Mass/Vol] 58 mg/dL Normal 35-85 [facility] Comment on above: Order Comment: Comme nt use ER blood Result Comment: HDL CHOL ATP-III CLASSIFICATION Cardiovascular Risk HDL > or equal to 60 mg/dL LOW HDL < 40 mg/dL HIGH Performed By: #### L IPID, TSH3 wRFLX, [id number] #### [facility] [address] Cholesterol.total/Chol esterol in HDL [Mass ratio] 3.6 {ratio} Normal <5.0 [facility] Comment on above: Order Comment: Comme nt use ER blood Performed By: #### L IPID, TSH3 wRFLX, [id number] #### [facility] [address] [place] [address] LDL Cholesterol,Calculated 120 mg/dL High 0-100 [facility] Comment on above: Order Comment: Comme nt use ER blood Result Comment: LDL ATP III CLASSIFICATION LDL less than 100 mg/dL Optimal LDL 100-129 mg/dL Near or above optimal LDL 130-159 mg/dL Borderline high LDL 160-189 mg/dL High LDL greater than 189 mg/dL Very high Performed By: #### L IPID, TSH3 wRFLX, [id number] #### [facility] [address] [place], [place] [id number] [facility] Triglyceride w/Reflex 152 mg/dL High 35-149 [facility] Comment on above: Order Comment: Comme nt use ER blood Result Comment: TRIG ATP III CLASSIFICATION TRIG less than 150 mg/dL Normal TRIG 150-199 mg/dL Borderline high TRIG 200-500 mg/dL High TRIG greater than 500 mg/dL Very high Standard traceable to the Center for Disease Conrtrol and Prevention (CDC) test method. Performed By: #### L IPID, TSH3 wRFLX, [id number] #### [facility] [address] [place] [id number] [facility] VLDL CHOLESTEROL 30 mg/dL Normal [facility] Comment on above: Order Comment: Comme nt use ER blood Performed By: #### L IPID, TSH3 wRFLX, [id number] #### [facility] [address] [place] [id number] [facility] Lymphocytes Auto (Bld) [#/Vo l]Ordered By: Ruby Penn on 03-11-2022 Lymphocytes (Bld) [#/Vol] 3.2 10*3/uL 1.00-4.8 [facility] Lymphocytes/100 WBC Auto (Bl d)Ordered By: Ruby Penn on 03-11-2022 Lymphocytes/100 WBC (Bld) 31.5 % . [facility] MCH Auto (RBC) [Entitic mass ]Ordered By: Ruby Penn on 03-11-2022 MCH (RBC) [Entitic mass] 30.7 pg 24.7-34.3 [facility] MCHC Auto (RBC) [Mass/Vol]Or dered By: Ruby Penn on 03-11-2022 MCHC (RBC) [Mass/Vol] 33.0 g/dL 32.0-35.0 [facility] MCV Auto (RBC) [Entitic vol] Ordered By: Ruby Penn on 03-11-2022 MCV (RBC) [Entitic vol] 93.2 fL 80-100 [facility] Monocytes Auto (Bld) [#/Vol] Ordered By: Ruby Penn on 03-11-2022 Monocytes (Bld) [#/Vol] 0.8 10*3/uL 0.0-0.8 [facility] Monocytes/100 WBC Auto (Bld) Ordered By: Ruby Penn on 03-11-2022 Monocytes/100 WBC (Bld) 8.2 % . [facility] Neutrophils Auto (Bld) [#/Vo l]Ordered By: Ruby Penn on 03-11-2022 Neutrophils (Bld) [#/Vol] 3.9 10*3/uL 1.8-7.7 [facility] Neutrophils/100 WBC Auto (Bl d)Ordered By: Ruby Penn on 03-11-2022 Neutrophils/100 WBC (Bld) 38.6 % . [facility] Nitrite Test strip Ql (U)Ord ered By: Ruby Penn on 03-11-2022 Nitrite Ql (U) Negative Negative [facility] No Panel InformationOrdered By: Marco A Zaman on 03-11-2022 25-Hydroxy Vitamin D Total 34.7 ng/mL 30-100 [facility] Comment on above: VITAMIN D STATUS 25( [place])VITAMIN D RANGE (ng/mL) Deficient <20 Insufficient 20 to <30Sufficient 30 to 100Reference: Monty MF,Hilda NC, Mariajose MARY, et al. Evaluation,treatment, and prevention of vitamin D deficiency; an Endocrine Society clinical practice guideline. JCEM. 2010; 96(7):1911-30. No Panel InformationOrdered By: Ruby Penn on 03-11-2022 Estimated GFR () 43 mL/Min [facility] Comment on above: GFR estimated refere nce range: According to KDOQI guidelines, <60 ml/min/1.73m2 is sufficient to diagnose a patient with chronic kidney disease. Pharmacy Creatinine Clearance (Chem 37.23 [facility] Platelet Estimate Normal Normal [facility] Platelet Morphology Comment Normal Normal [facility] SARS Antigen (LFIA) [facility] Phencyclidine Screen Ql (U)O rdered By: Ruby Penn on 03-11-2022 Phencyclidine Ql (U) Negative Negative [facility] Platelet mean volume Auto (B ld) [Entitic vol]Ordered By: Ruby Penn on 03-11-2022 Platelet mean volume (Bld) [Entitic vol] 8.8 fL 6.3-10.7 [facility] Platelets Auto (Bld) [#/Vol] Ordered By: Ruby Penn on 03-11-2022 Platelets (Bld) [#/Vol] 287 10*3/uL 150-450 [facility] Protein Auto test strip (U) [Mass/Vol]Ordered By: Ruby Penn on 03-11-2022 Protein (U) [Mass/Vol] Negative Negative [facility] Protein [Mass/volume] in Ser um or PlasmaOrdered By: Ruby Penn on 03-11-2022 Protein [Mass/Vol] 7.1 g/dL 6.1-7.[address] [facility] RBC Auto (Bld) [#/Vol]Ordere d By: Ruby Penn on 03-11-2022 RBC (Bld) [#/Vol] 4.38 10*6/uL 3.60-5.00 [facility] RBC morphologyOrdered By: Joseph Penn on 03-11-2022 RBC morphology finding Nom (Bld) Normal [facility] Scan and CBCon 03-11-2022 Basophils (Bld) [#/Vol] 0.1 10*3/uL Normal 0.0-0.2 [facility] Comment on above: Performed By: #### L IPID, TSH3 wRFLX, [id number] #### [facility] [address] [place] [address] Basophils/100 WBC (Bld) 0.8 % Normal . [facility] Comment on above: Performed By: #### L IPID, TSH3 wRFLX, [id number] #### [facility] [address] [place] [address] [place] Eosinophils (Bld) [#/Vol] 2.1 10*3/uL High 0.0-0.45 [facility] Comment on above: Performed By: #### L IPID, TSH3 wRFLX, [id number] #### [facility] [address] [place] [address] [place] Eosinophils/100 WBC (Bld) 20.9 % Normal . [facility] Comment on above: Performed By: #### L IPID, TSH3 wRFLX, [id number] #### [facility] [address] [place] [address] Erythrocyte distribution width (RBC) [Ratio] 14.3 % Normal 11.9-15.3 [facility] Comment on above: Performed By: #### L IPID, TSH3 wRFLX, [id number] #### [address] Hematocrit (Bld) [Volume fraction] 40.8 % Normal 34.0-46.4 [facility] Comment on above: Performed By: #### L IPID, TSH3 wRFLX, [id number] #### [address] Hemoglobin (Bld) [Mass/Vol] 13.5 g/dL Normal 11.8-15.4 [facility] Comment on above: Performed By: #### L IPID, TSH3 wRFLX, [id number] #### [address] Lymphocytes (Bld) [#/Vol] 3.2 10*3/uL Normal 1.00-4.8 [facility] Comment on above: Performed By: #### L IPID, TSH3 wRFLX, [id number] #### [address] Lymphocytes/100 WBC (Bld) 31.5 % Normal . [facility] Comment on above: Performed By: #### L IPID, TSH3 wRFLX, [id number] #### [address] MCH (RBC) [Entitic mass] 30.7 pg Normal 24.7-34.3 [facility] Comment on above: Performed By: #### L IPID, TSH3 wRFLX, [id number] #### [address] MCV (RBC) [Entitic vol] 93.2 fL Normal 80-100 [facility] Comment on above: Performed By: #### L IPID, TSH3 wRFLX, [id number] #### [address] Mean Corpuscular HGB Conc 33.0 g/dL Normal 32.0-35.0 [facility] Comment on above: Performed By: #### L IPID, TSH3 wRFLX, [id number] #### [facility] [address] [place] [address] Monocytes (Bld) [#/Vol] 0.8 10*3/uL Normal 0.0-0.8 [facility] Comment on above: Performed By: #### L IPID, TSH3 wRFLX, [id number] #### [address] Monocytes/100 WBC (Bld) 8.2 % Normal . [facility] Comment on above: Performed By: #### L IPID, TSH3 wRFLX, [id number] #### [address] Neutrophils (Bld) [#/Vol] 3.9 10*3/uL Normal 1.8-7.7 [facility] Comment on above: Performed By: #### L IPID, TSH3 wRFLX, [id number] #### [address] Neutrophils/100 WBC (Bld) 38.6 % Normal . [facility] Comment on above: Performed By: #### L IPID, TSH3 wRFLX, [id number] #### [address] Nucleated RBC/100 WBC (Bld) [Ratio] 0.1 % Normal 0-0.5 [facility] Comment on above: Performed By: #### L IPID, TSH3 wRFLX, [id number] #### [address] Platelet Estimate Normal Normal Normal [facility] Comment on above: Performed By: #### L IPID, TSH3 wRFLX, [id number] #### [address] Platelet mean volume (Bld) [Entitic vol] 8.8 fL Normal 6.3-10.7 [facility] Comment on above: Performed By: #### L IPID, TSH3 wRFLX, [id number] #### [facility] [address] Platelet Morphology Normal Normal Normal [facility] Comment on above: Result Comment: PERF ORMED BY: [place] [address] PATHOLOGIST [employer] KRISTI TURNER M.D. Performed By: #### L IPID, TSH3 wRFLX, [id number] #### [address] Platelets (Bld) [#/Vol] 287 10*3/uL Normal 150-450 [facility] Comment on above: Performed By: #### L IPID, TSH3 wRFLX, [id number] #### [address] RBC (Bld) [#/Vol] 4.38 10*6/uL Normal 3.60-5.00 [facility] Comment on above: Performed By: #### L IPID, TSH3 wRFLX, [id number] #### [address] RBC morphology finding Nom (Bld) Normal Normal [facility] Comment on above: Performed By: #### L IPID, TSH3 wRFLX, [id number] #### [address] WBC (Bld) [#/Vol] 10.1 10*3/uL Normal 4.5-11.0 [facility] Comment on above: Performed By: #### L IPID, TSH3 wRFLX, [id number] #### [address] Serum or plasma alanine arora otransferase measurement without P-5'-P (enzymatic activiOrdered By: Ruby Penn on 03-11-2022 ALT No additional P-5'-P [Catalytic activity/Vol] 22 U/L 10-60 [facility] Serum or plasma albumin/glob ulin mass ratioOrdered By: Ruby Penn on 03-11-2022 Albumin/Globulin [Mass ratio] 1.2 {ratio} [facility] Serum or plasma alkaline lashaun sphatase measurement (enzymatic activity/volume)Ordered By: Ruby Penn on 03-11-2022 ALP [Catalytic activity/Vol] 45 U/L 32-92 [facility] Serum or plasma anion gap de terminationOrdered By: Ruby Penn on 03-11-2022 Anion gap [Moles/Vol] 17.0 mmol/L 6.0-15.0 [facility] Serum or plasma aspartate am inotransferase measurement (enzymatic activity/volume)Ordered By: Ruby Penn on 03-11-2022 AST [Catalytic activity/Vol] 21 U/L 10-42 [facility] Serum or plasma calcium sunil urement (mass/volume)Ordered By: Ruby Penn on 03-11-2022 Calcium [Mass/Vol] 10.1 mg/dL 8.2-10.[address] [facility] Serum or plasma chloride leo surement (moles/volume)Ordered By: Ruby Penn on 03-11-2022 Chloride [Moles/Vol] 102 mmol/L 95-114 [facility] Serum or plasma ethanol sunil urement (mass/volume)Ordered By: Ruby Penn on 03-11-2022 Ethanol [Mass/Vol] mg/dL [facility] Ethanol [Mass/Vol] TNP [facility] Comment on above: Test not performed Serum or plasma glucose sunil urement (mass/volume)Ordered By: Ruby Penn on 03-11-2022 Glucose [Mass/Vol] 95 mg/dL 70-[address] [facility] Comment on above: ADA recommended refe rence rangeRandom Glucose Reference Range is dependent on time and content of last meal. Glucose of more than 200 mg/dL in a nonstressed, ambulatory subject supports the diagnosis of Diabetes Mellitus. Serum or plasma high density lipoprotein (HDL) cholesterol measurementOrdered By: Marco A Zaman on 03-11-2022 Cholesterol in HDL [Mass/Vol] 58 mg/dL 35-85 [facility] Comment on above: HDL CHOL ATP-III CLA SSIFICATION Cardiovascular RiskHDL > or equal to 60 mg/dL LOWHDL < 40 mg/dL HIGH Serum or plasma potassium me asurement (moles/volume)Ordered By: Ruby Penn on 03-11-2022 Potassium [Moles/Vol] 3.9 mmol/L 3.5-5.1 [facility] Serum or plasma sodium measu rement (moles/volume)Ordered By: Ruby Penn on 03-11-2022 Sodium [Moles/Vol] 140 mmol/L 136-[address] [facility] Serum or plasma total biliru bin measurement (mass/volume)Ordered By: Ruby Penn on 03-11-2022 Bilirubin [Mass/Vol] 0.8 mg/dL 0.3-1.2 [facility] Serum or plasma total carbon dioxide measurement (moles/volume)Ordered By: Ruby Penn on 03-11-2022 CO2 [Moles/Vol] 24.9 mmol/L 22.0-30.[address] [facility] Serum or plasma total choles terol/high density lipoprotein (HDL) cholesterol mass ratOrdered By: Marco A Zaman on 03-11-2022 Cholesterol.total/Chol esterol in HDL [Mass ratio] 3.6 {ratio} <5.0 [facility] Serum or plasma urea nitroge n measurement (mass/volume)Ordered By: Ruby Penn on 03-11-2022 Urea nitrogen [Mass/Vol] 30 mg/dL 9-23 [facility] Demetria Ag Negativeon 03-11-20 Demetria Ag Negative Negative Normal Negative [facility] Comment on above: Result Comment: This is a duplicate [facility] SARS Antigen (MERARY) result to be used for statistical tracking purpose only. PERFORMED BY: [place] [address] PATHOLOGIST [employer] KRISTI TURNER M.D. Performed By: #### L IPID, TSH3 wRFLX, [id number] #### [address] Specific gravity Auto test s trip (U) [Rel density]Ordered By: Ruby Penn on 03-11-2022 Specific gravity (U) [Rel density] 1.007 1.001-1.03 0 [facility] Squamous epithelial cells de tection in urine sediment by light microscopyOrdered By: Ruby Penn on 03-11-2022 Epithelial cells.squamous LM Ql (Urine sed) 0-1 [HPF] 0-2 [facility] TSH DL <= 0.005 mIU/L QnOrde red By: Marco A Zaman on 03-11-2022 TSH Qn 1.67 m[IU]/L 0.45-5.33 [facility] Thyroid Stim Hormone w/Rflxo n 03-11-2022 Thyroid Stim Hormone w/Rflx 1.67 u[iU]/mL Normal 0.45-5.33 [facility] Comment on above: Order Comment: Comme nt use ER blood Performed By: #### L IPID, TSH3 wRFLX, [id number] #### [facility] [address] [place] [address] Triglyceride [Mass/volume] i n Serum or PlasmaOrdered By: Marco A Zaman on 03-11-2022 Triglyceride [Mass/Vol] 152 mg/dL 35-149 [facility] Comment on above: TRIG ATP III CLASSIF ICATIONTRIG less than 150 mg/dL NormalTRIG 150-199 mg/dL Borderline highTRIG 200-500 mg/dL High TRIG greater than 500 mg/dL Very highStandard traceable to the Center for Disease Conrtrol and Prevention (CDC) test method. Urine Cultureon 03-11-2022 Bacteria identified Cx Nom (U) 25,000 colonies/ml mixed bacterial skin contaminants 2 Days PERFORMED BY: [place] [address] PATHOLOGIST [employer] KRISTI TURNER M.D. Normal [facility] Comment on above: Performed By: #### C UU, JESUS, UHCG, URDS #### [facility] [address] [place] [address] Urine bacteria detection by automated methodOrdered By: Ruby Penn on 03-11-2022 Bacteria Auto Ql (U) None seen None Seen [facility] Urine clarity by refractomet ry automatedOrdered By: Ruby Penn on 03-11-2022 Clarity Refractometry automated (U) Clear Clear [facility] Urine cocaine detectionOrder ed By: Ruby Penn on 03-11-2022 Cocaine Ql (U) Negative Negative [facility] Urine glucose measurement by automated test strip (mass/volume)Ordered By: Ruby Penn on 03-11-2022 Glucose Auto test strip (U) [Mass/Vol] Normal mg/dL Normal [facility] Urine hemoglobin detection b y automated test stripOrdered By: Ruby Penn on 03-11-2022 Hemoglobin Auto test strip Ql (U) Negative Negative [facility] Urine leukocyte esterase det ection by automated test stripOrdered By: Ruby Penn on 03-11-2022 Leukocyte esterase Auto test strip Ql (U) 3+ Negative [facility] Urobilinogen Auto test strip (U) [Mass/Vol]Ordered By: Ruby Penn on 03-11-2022 Urobilinogen (U) [Mass/Vol] Normal mg/dL Normal [facility] Vitamin D 25 Hydroxy Totalon 03-11-2022 Vitamin D 25 Hydroxy Total 34.7 ng/mL Normal 30-100 [facility] Comment on above: Order Comment: Comme nt use ER blood Result Comment: JUAN MIN D STATUS 25(OH)VITAMIN D RANGE (ng/mL) Deficient <20 Insufficient 20 to <30 Sufficient 30 to 100 Reference: Monty MF,Hilda NC, Mariajose MARY, et al. Evaluation,treatment, and prevention of vitamin D deficiency; an Endocrine Society clinical practice guideline. JCEM. 2010; 96(7):1911-30. PERFORMED BY: [place] [address] PATHOLOGIST [employer] KRISTI TURNER M.D. Performed By: #### L IPID, TSH3 wRFLX, [id number] #### [place] [address] [place] pH Auto test strip (U)Ordere d By: Ruby Penn on 03-11-2022 pH (U) 6.5 [pH] 5.0-9.0 [facility] RENAL FUNCTION PANELon 01-22 Albumin [Mass/Vol] 3.5 g/dL Normal 3.4-5.0 [facility] Comment on above: Performed By: #### R ENAL #### [facility] [address] [address] [address] Emanuel Degroot Calcium [Mass/Vol] 9.5 mg/dL Normal 8.5-10.1 [facility] Comment on above: Performed By: #### R ENAL #### [facility] [address] [address] [address] Emanuel Degroot Chloride [Moles/Vol] 107 mmol/L Normal 98-107 [facility] Comment on above: Performed By: #### R ENAL #### [facility] [address] [place] [address] Dr. Emanuel Degroot CO2 [Moles/Vol] 28.6 mmol/L Normal 21.0-32.0 [facility] Comment on above: Performed By: #### R ENAL #### [facility] [address] [place] [address] Dr. Emanuel Degroot Creatinine [Mass/Vol] 1.35 mg/dL Critically high 0.55-1.02 [facility] Comment on above: Performed By: #### R ENAL #### [facility] [address] [place] [address] Dr. Emanuel Degroot EGFR-AF GUATEMALAN 48 mL/min/1.73m2 Critically low >=60 [facility] Comment on above: Performed By: #### R ENAL #### [facility] [address] [place] [address] Dr. Emanuel Degroot EGFR-NON AF GUATEMALAN 40 mL/min/1.73m2 Critically low >=60 [facility] Comment on above: Performed By: #### R ENAL #### [facility] [address] [place] [address] Dr. Emanuel Degroot Glucose [Mass/Vol] 141 mg/dL Critically high 74-106 [facility] Comment on above: Performed By: #### R ENAL #### [facility] [address] [place] [address] Dr. Emanuel Degroot Phosphate [Mass/Vol] 3.8 mg/dL Normal 2.6-4.7 [facility] Comment on above: Performed By: #### R ENAL #### [facility] [address] [place] [address] Dr. Emanuel Degroot Potassium [Moles/Vol] 3.8 mmol/L Normal 3.5-5.1 [facility] Comment on above: Performed By: #### R ENAL #### [facility] [address] [address] [address] Emanuel Degroot Sodium [Moles/Vol] 143 mmol/L Normal 136-145 [facility] Comment on above: Performed By: #### R ENAL #### [facility] [address] [place] [address] Dr. Emanuel Degroot Urea nitrogen [Mass/Vol] 29.0 mg/dL Critically high 7.0-18.0 [facility] Comment on above: Performed By: #### R ENAL #### [facility] [address] [place] [address] Dr. Emanuel Degroot XR ANKLE RT MIN [...] by: MIR HENRY Date: 2021-12-07 18:21 Normal [facility] LITHIUMon 12-06-2021 Penelope (Eskalith(R)), Serum <0.1 Critically low 0.5-1.2 [facility] Comment on above: Result Comment: Plas ma concentration of 0.5 - 0.8 mmol/L are advised for long-term use; concentrations of up to 1.2 mmol/L may be necessary during acute treatment. Verified by repeat analysis Detection Limit = 0.1 <0.1 indicates None Detected Performed By: #### L ITHIUM #### [facility] [address] [place], [place] [address] Dr. Emanuel Degroot LIPID PROFILEon 12-05-2021 CHOL-HDL RATIO NORM SEE BELOW Normal [facility] Comment on above: Result Comment: 3.3 - 4.4 LOW RISK 4.4 - 7.1 AVERAGE RISK 7.1 - 11.0 MODERATE RISK >11.0 HIGH RISK Performed By: #### L IPID, CMP, TSH ####[facility] [id number] [place], [place] [address]Br. Emanuel Degroot Cholesterol [Mass/Vol] 264 mg/dL Critically high <=200 [facility] Comment on above: Performed By: #### L IPID, CMP, TSH ####[facility] [address] [place], [place] [address]Oy. Emanuel Degroot Cholesterol in HDL [Mass/Vol] 76 mg/dL Critically high 40-60 [facility] Comment on above: Performed By: #### L IPID, CMP, TSH ####[facility] [address] [place] [id number]. Emanuel Degroot Cholesterol in LDL [Mass/Vol] 171.2 mg/dL Normal [facility] Comment on above: Performed By: #### L IPID, CMP, TSH ####[facility] [address] [place], [place] [address]Zh. Emanuel Degroot Cholesterol.total/Chol esterol in HDL [Mass ratio] 3.5 {ratio} Normal [facility] Comment on above: Performed By: #### L IPID, CMP, TSH ####[facility] [address] [place] [id number]. Emanuel Degroot HDL NORMAL > or = 60 mg/dl - LO W CARDIOVASCULAR RISK <40 mg/dl - HIGH CARDIOVASCULAR RISK Normal [facility] Comment on above: Performed By: #### L IPID, CMP, TSH ####[facility] Rx[address] [place] [id number]. Emanuel Degroot LDL CALC NORMAL SEE BELOW Normal [facility] Comment on above: Result Comment: <100 mg/dl OPTIMAL 100 - 129 mg/dl NEAR OR ABOVE OPTIMAL 130 - 159 mg/dl BORDERLINE HIGH 160 - 189 mg/dl HIGH >190 mg/dl VERY HIGH Performed By: #### L IPID, CMP, TSH ####[facility] [address] [place], [place] [address]WiDr. Emanuel Dgeroot Triglyceride [Mass/Vol] 84 mg/dL Normal <=150 [facility] Comment on above: Performed By: #### L IPID, CMP, TSH ####[facility] [address] [place], [place] [address]RaDr. Emanuel Degroot VLDL CALC 16.8 mg/dL Normal [facility] Comment on above: Performed By: #### L IPID, CMP, TSH ####[facility] [address] [place], [place] [address]HzDr. Emanuel Degroot PROF 14(COMP METB)on 022 Albumin [Mass/Vol] 3.8 g/dL Normal 3.4-5.0 [facility] Comment on above: Performed By: #### L IPID, CMP, TSH #### [facility] Laboratory [address] [address] [address] Emanuel Degroot Albumin/Globulin [Mass ratio] 1.1 {ratio} Normal [facility] Comment on above: Performed By: #### L IPID, CMP, TSH #### [facility] Laboratory [address] [address] [address] Emanuel Degroot ALP [Catalytic activity/Vol] 32 U/L Critically low 46-116 [facility] Comment on above: Performed By: #### L IPID, CMP, TSH #### [facility] Laboratory [address] [address] [address] Emanuel Degroot ALT [Catalytic activity/Vol] 28 U/L Normal 14-59 [facility] Comment on above: Performed By: #### L IPID, CMP, TSH #### [facility] Laboratory [address] [address] [address] Emanuel Degroot Anion gap [Moles/Vol] 11.0 mmol/L Normal [facility] Comment on above: Performed By: #### L IPID, CMP, TSH #### [facility] Laboratory [address] [address] [address] Emanuel Degroot AST [Catalytic activity/Vol] 16 U/L Normal 15-37 [facility] Comment on above: Performed By: #### L IPID, CMP, TSH #### [facility] Laboratory [address] [place] [address] Dr. Emanuel Degroot Bilirubin [Mass/Vol] 0.3 mg/dL Normal 0.2-1.0 [facility] Comment on above: Performed By: #### L IPID, CMP, TSH #### [facility] Laboratory [address] [address] [address] Emanuel Degroot Calcium [Mass/Vol] 9.7 mg/dL Normal 8.5-10.1 [facility] Comment on above: Performed By: #### L IPID, CMP, TSH #### [facility] Laboratory [address] [place] [address] Dr. Emanuel Degroot Chloride [Moles/Vol] 105 mmol/L Normal 98-107 [facility] Comment on above: Performed By: #### L IPID, CMP, TSH #### [facility] Laboratory [address] [place] [address] Dr. Emanuel Degroot CO2 [Moles/Vol] 30.4 mmol/L Normal 21.0-32.0 [facility] Comment on above: Performed By: #### L IPID, CMP, TSH #### [facility] Laboratory [address] [address] [address] Emanuel Degroot Creatinine [Mass/Vol] 1.40 mg/dL Critically high 0.55-1.02 [facility] Comment on above: Performed By: #### L IPID, CMP, TSH #### [facility] Laboratory [address] [place] [address] Dr. Emanuel Degroot EGFR-AF GUATEMALAN 46 mL/min/1.73m2 Critically low >=60 [facility] Comment on above: Performed By: #### L IPID, CMP, TSH #### [facility] Laboratory [address] [place] [address] Dr. Emanuel Degroot EGFR-NON AF GUATEMALAN 38 mL/min/1.73m2 Critically low >=60 [facility] Comment on above: Performed By: #### L IPID CMP, TSH #### [facility] Laboratory [address] [address] [address] Emanuel Degroot Globulin (S) [Mass/Vol] 3.6 g/dL Normal [facility] Comment on above: Performed By: #### L IPID, CMP, TSH #### [facility] Laboratory [address] [address] [address] Emanuel Degroot Glucose [Mass/Vol] 98 mg/dL Normal 74-106 [facility] Comment on above: Performed By: #### L IPID CMP, TSH #### [facility] Laboratory [address] [address] [address] Emanuel Degroot Potassium [Moles/Vol] 4.4 mmol/L Normal 3.5-5.1 [facility] Comment on above: Performed By: #### L IPID CMP, TSH #### [facility] Laboratory [address] [address] [address] Emanuel Degroot Protein [Mass/Vol] 7.4 g/dL Normal 6.4-8.2 [facility] Comment on above: Performed By: #### L IPID CMP, TSH #### [facility] Laboratory [address] [address] [address] Emanuel Degroot Sodium [Moles/Vol] 142 mmol/L Normal 136-145 [facility] Comment on above: Performed By: #### L IPID, CMP, TSH #### [facility] [address] [address] [address] Emanuel Degroot Urea nitrogen [Mass/Vol] 25.0 mg/dL Critically high 7.0-18.0 [facility] Comment on above: Performed By: #### L IPID, CMP, TSH #### [facility] Laboratory [address] [address] [address] Emanuel Degroot Urea nitrogen/Creatinine [Mass ratio] 17.9 mg/mg Normal [facility] Comment on above: Performed By: #### L IPID, CMP, TSH #### [facility] Laboratory [address] [place], [place] [address] Dr. Emanuel Degroot TSHon 12-05-2021 TSH 1.960 uIU/mL Normal 0.358-3.74 0 [facility] Comment on above: Performed By: #### L IPID, CMP, TSH ####[facility] [address] [place] [address]DrAleah Degroot PTH INTACTon 09-22-2021 PTH, Intact 103 pg/mL Critically high 15-65 [facility] Comment on above: Performed By: #### P THINT ####[facility] [address] [place] [address]DrAleah Degroot HEMOGRAM AND PLATELon 2021 Hematocrit (Bld) [Volume fraction] 37.8 % Normal 36.0-48.0 [facility] Comment on above: Performed By: #### H H ####[facility] [address] [place] [address]DrAleah Degroot Hemoglobin (Bld) [Mass/Vol] 11.8 g/dL Critically low 12.0-16.0 [facility] Comment on above: Performed By: #### H H ####[facility] [address] [place] [address]DrAleah Degroot MCH (RBC) [Entitic mass] 31.7 pg Normal 26.7-34.0 [facility] Comment on above: Performed By: #### H H ####[facility] [address] [place] [address]DrAleah Degroot MCHC (RBC) [Mass/Vol] 31.2 g/dL Normal 29.9-35.2 [facility] Comment on above: Performed By: #### H H ####[facility] [address] [place] [address]DrAleah Degroot MCV (RBC) [Entitic vol] 101.6 fL Critically high 81.0-99.0 [facility] Comment on above: Performed By: #### H H ####[facility] [address] [place], [place] [address]Qk. Emanuel Degroot PLT 237 103/ul Normal 150-450 [facility] Comment on above: Performed By: #### H H ####[facility] [address] [place], [place] [address]Ma. Liyarizwana Degroot RBC 3.72 106/ul Critically low 4.20-5.[address] [facility] Comment on above: Performed By: #### H H ####[facility] [address] [place], [place] [address]Sl. Emanuel Degroot WBC 7.8 103/ul Normal 4.0-11.0 [facility] Comment on above: Performed By: #### H H ####[facility] [address] [place], [place] [address]Nu. Emanuel Degroot MAGNESIUMon 09-21-2021 Magnesium [Mass/Vol] 2.4 mg/dL Critically high 1.6-2.3 [facility] Comment on above: Performed By: #### R REANNA, MG #### [facility] Laboratory [address] [address] [address] Emanuel Degroot RENAL FUNCTION PANELon 09-21 Albumin [Mass/Vol] 3.5 g/dL Normal 3.4-5.0 [facility] Comment on above: Performed By: #### R ENOSKAR, MG #### [facility] Laboratory [address] [address] [address] Emanuel Degroot Calcium [Mass/Vol] 9.4 mg/dL Normal 8.5-10.1 [facility] Comment on above: Performed By: #### R ENOSKAR, MG #### [facility] Laboratory [address] [address] [address] Emanuel Degroot Chloride [Moles/Vol] 104 mmol/L Normal 98-107 [facility] Comment on above: Performed By: #### R ENAL, MG #### [facility] Laboratory [address] [address] [address] Emanuel Degroot CO2 [Moles/Vol] 28.4 mmol/L Normal 22.0-30.0 [facility] Comment on above: Performed By: #### R ENAL, MG #### [facility] Laboratory [address] [address] [address] Emanuel Degroot Creatinine [Mass/Vol] 1.58 mg/dL Critically high 0.52-1.04 [facility] Comment on above: Performed By: #### R ENAL, MG #### [facility] Laboratory [address] [place] [address] Dr. Emanuel Degroot EGFR-AF GUATEMALAN 40 mL/min/1.73m2 Critically low >=60 [facility] Comment on above: Performed By: #### R ENAL, MG #### [facility] Laboratory [address] [place] [address] Dr. Emanuel Degroot EGFR-NON AF GUATEMALAN 33 mL/min/1.73m2 Critically low >=60 [facility] Comment on above: Performed By: #### R ENAL, MG #### [facility] Laboratory [address] [place] [address] Dr. Emanuel Degroot Glucose [Mass/Vol] 83 mg/dL Normal 74-106 [facility] Comment on above: Performed By: #### R ENAL, MG #### [facility] [address] [place] [address] Dr. Emanuel Degroot Phosphate [Mass/Vol] 4.4 mg/dL Normal 2.5-4.5 [facility] Comment on above: Performed By: #### R ENAL, MG #### [facility] Laboratory [address] [place] [address] Dr. Emanuel Degroot Potassium [Moles/Vol] 3.9 mmol/L Normal 3.4-5.0 [facility] Comment on above: Performed By: #### R ENAL, MG #### [facility] [address] [place] [address] Dr. Emanuel Degroot Sodium [Moles/Vol] 139 mmol/L Normal 137-145 [facility] Comment on above: Performed By: #### R ENAL, MG #### [facility] [address] [place] [address] Dr. Emanuel Degroot Urea nitrogen [Mass/Vol] 28.0 mg/dL Critically high 7.0-18.0 [facility] Comment on above: Performed By: #### R ENAL, MG #### [facility] Laboratory [address] [place] [address] Dr. Emanuel Degroot UA RANDOM W/MICROSCOPICon BACTERIA NONE SEEN Normal NONE SEEN The [facility] Comment on above: Performed By: #### U AMIC #### [facility] Laboratory [address] [place] [address] Dr. Emanuel Degroot Bilirubin Ql (U) Negative Normal NEGATIVE [facility] Comment on above: Performed By: #### U AMIC #### [facility] Laboratory [address] [place] [address] Dr. Emanuel Degroot CAST NONE SEEN Normal NONE SEEN [facility] Comment on above: Performed By: #### U AMIC #### [facility] Laboratory [address] [place] [address] Dr. Emanuel Degroot Clarity (U) CLEAR Normal CLEAR [facility] Comment on above: Performed By: #### U AMIC #### [facility] Laboratory [address] [place] [address] Dr. Emanuel Degroot Color (U) LT. YELLOW Normal YELLOW [facility] Comment on above: Performed By: #### U AMIC #### [facility] Laboratory [address] [place] [address] Dr. Emanuel Degroot Crystals LM Nom (Urine sed) NONE SEEN Normal NONE SEEN [facility] Comment on above: Performed By: #### U AMIC #### [facility] Laboratory [address] [place] [address] Dr. Emanuel Degroot Epithelial cells LM Ql (Urine sed) MODERATE Abnormal NONE SEEN /RARE [facility] Comment on above: Performed By: #### U AMIC #### [facility] Laboratory [address] [place] [address] Dr. Emanuel Degroot Glucose Ql (U) Negative Normal NEGATIVE [facility] Comment on above: Performed By: #### U AMIC #### [facility] Laboratory [address] [place] [address] Dr. Emanuel Degroot Hemoglobin Ql (U) Negative Normal NEGATIVE [facility] Comment on above: Performed By: #### U AMIC #### [facility] Laboratory [address] [address] [address] Emanuel Degroot Ketones Ql (U) Negative Normal NEGATIVE [facility] Comment on above: Performed By: #### U AMIC #### [facility] [address] [address] [address] Emanuel Degroot LEUKOCYTES SMALL Abnormal NEGATIVE [facility] Comment on above: Performed By: #### U AMIC #### [facility] Laboratory [address] [address] [address] Emanuel Degroot MUCOUS NONE SEEN Normal NONE SEEN [facility] Comment on above: Performed By: #### U AMIC #### [facility] Laboratory [address] [place] [address] Dr. Emanuel Degroot Nitrite Ql (U) Negative Normal NEGATIVE [facility] Comment on above: Performed By: #### U AMIC #### [facility] [address] [address] [address] Emanuel Degroot pH (U) 6.5 [pH] Normal 5-9 [facility] Comment on above: Performed By: #### U AMIC #### [facility] [address] [address] [address] Emanuel Degroot RBC NONE SEEN Abnormal 0-2 [facility] Comment on above: Performed By: #### U AMIC #### [facility] Laboratory [address] [place] [address] Dr. Emanuel Degroot SPEC GRAVITY 1.010 Normal 1.005-<=1. 025 [facility] Comment on above: Performed By: #### U AMIC #### [facility] [address] [address] [address] Emanuel Degroot UA PROTEIN Negative Normal NEGATIVE/ TRACE [facility] Comment on above: Performed By: #### U AMIC #### [facility] Laboratory [address] [place] [address] Dr. Emanuel Degroot Urobilinogen Qn (U) 0.2 {Destiny'U}/dL Normal 0.2 - 1. 0 [facility] Comment on above: Performed By: #### U AMIC #### [facility] Laboratory [address] [address] [address] Emanuel Degroot WBC 2-5 Abnormal NONE SEEN The [facility] Comment on above: Performed By: #### U AMIC #### [facility] Laboratory [id number] Emanuel Degroot URINE T PROTEIN CREAT RATIOo n 09-21-2021 UR PROT CREAT RAT 0.19 Normal [address] [facility] Comment on above: Result Comment: unab le to calculate Performed By: #### U RTPCR ####[facility] [address] [place] [address]DrAleah Degroot UR TOTAL PROTEIN <5.0 Normal <=12.0 [facility] Comment on above: Performed By: #### U RTPCR ####[facility] [address] [place] [address]DrAleah Degroot URINE CREAT 26.13 mg/dL Normal 20.00-300. 00 [facility] Comment on above: Performed By: #### U RTPCR ####[facility] [address] [place] [id number]. Emanuel Degroot VITAMIN D 25 OHon 09-21-2021 VIT D 25-OH 43.1 ng/mL Normal [facility] Comment on above: Performed By: #### V ITAD ####[facility] [address] [place] [address]DrAleah Degroot VIT D RANGES SEE BELOW Normal [facility] Comment on above: Result Comment: <20 ng/mL Vit D deficient 20 - <30 ng/mL Vit D insufficient 30 - 100 ng/mL Vit D sufficient >100 ng/mL Potential Toxicity Performed By: #### V ITAD ####[facility] [address] [place] [address]DrAleah Degroot XR knee LT 4V*on 05-06-2021 XR knee LT 4V* [place] [address] XRay Report Signed Patient: Nola Waller MR#: [id number] : 1960 Acct:[id number] Age/Sex: 60 / F ADM Date: 05/06/21 Loc: XDUCLY Room: Type: [facility] Attending Dr: Geneva MONAE Ordering Provider: DOV [...] Emy Wang M.D.05/06/2021 4:41 PM Dictation Location: [place] [address] Transcribed By: [facility] 05/06/21 1641 Dictated By: Emy Wang MD 05/06/21 1639 Signed By: 05/06/21 1641 [facility] Video Visit - Telehealth n 04-22-2020 Video Visit - Telehealth Chief Complaint Medication Recheck Subjective Interval History/HPI This visit was conducted via two-way, real-time interactive video communications from my office using [employer] due to the restrictions of the COVID-19 pandemic. No physical exam was conducted other than those areas of the body visible to telecommunications with the patient located at [address] [place], [place] [phone], with spouse in attendance. If it is [...] manic or depressive mood symptoms present. No catholic preoccupation or any other psychotic symptoms present. [...] 4. High risk medication use (Z79.899: Other longterm (current) drug therapy) General Treatment Plan Pharmacological [...] Juan ADAMES MD In 3 months [address] [facility] [address] [place] [address]- Additional Instructions: Other Information OARRS Report Reviewed Problem List/Past Medical History Ongoing Anxiety Bipolar I disorder, current or most recent episode depressed, in partial remission with mood-congruent psychotic features Chronic kidney disease (CKD), stage III (moderate) Downbeat nystagmus High risk medication use Historical No qualifying data Procedure/Surgical History History of ectopic , Knee arthroplasty, Rotator cuff arthropathy of right shoulder, TMJ syndrome, Tonsillectomy, [place] tooth. Medications clonazepam 1 mg Tab, 1 [...] inactivated - Not Given Patient Refuses Normal [facility] Comment on above: Result Comment: Elec tronically Signed By: Juan ADAMES MD\.br\Date and Time Signed: 04/22/20 15:26 EST Patient Educationon 04-22-20 20 Patient Education Ophthalmology Basics of Medication Management [...] caregiver questions about your prescriptions and any zehi-yhv-evljscv medications, vitamins, herbal or dietary supplements that [...] needed. ? Do not give your child tzpa-ytr-jgbgish cough and cold medicines if they are under 2 years of age. ? Avoid giving your child or teenager Aspirin or Aspirin-containing products. Document Released: 09/07/2011 Document Revised: 08/14/2012 Document Reviewed: 09/07/2011 ExitCare? Patient Information ?2013 [employer]. [facility] Video Visit - Telehealtho n 02-07-2020 Video Visit - Telehealth Chief Complaint Tele Visit Subjective Interval History/HPI This visit was conducted via two-way, real-time interactive video communications from my office using [employer] due to the restrictions of the COVID-19 pandemic. No physical exam was conducted other than those areas of the body visible to telecommunications with the patient located at [address] [place] [phone], with spouse in attendance. If it is [...] 3. High risk medication use (Z79.899: Other longterm (current) drug therapy) Orders: clonazepam, 1 mg = 1 tab(s), Oral, Once a day (at bedtime), f41.1, # 30 tab(s), Refills(s) 1, Pharmacy: [facility] #[id number], 158, cm, 01/18/20 12:40:00 EDT, Height/Length Dosing, 70.3, kg, 01/18/20 12:40:00 EDT, Weight Dosing lithium, 900 mg = 2 tab(s), Oral, Bedtime, # 60 tab(s), Refills(s) 5, Pharmacy: [facility] #[id number], 158, cm, 01/18/20 12:40:00 EDT, Height/Length Dosing, 70.3, kg, 01/18/20 12:40:00 EDT, Weight Dosing olanzapine, 10 mg = 1 tab(s), Oral, Bedtime, # 30 tab(s), Refills(s) 5, Pharmacy: [facility] #[id number], 158, cm, 01/18/20 12:40:00 EDT, Height/Length Dosing, [...] Information Juan ADAMES MD In 6 weeks [address] [facility] [address] [place], [place] [address]- Additional Instructions: Other Information OARRS Report Reviewed [...] arthropathy of right shoulder, TMJ syndrome, Tonsillectomy, [place] tooth. Medications clonazepam 1 mg Tab, 1 [...] - Not Given Patient Refuses Normal [facility] Comment on above: Result Comment: Elec [...] caregiver questions about your prescriptions and any rrtm-yzv-krsbkbu medications, vitamins, herbal or dietary supplements that [...] needed. ? Do not give your child hdcd-zwx-mxruglw cough and cold medicines if they are under 2 years of age. ? Avoid giving your child or teenager Aspirin or Aspirin-containing products. Document Released: 09/07/2011 Document Revised: 08/14/2012 Document Reviewed: 09/07/2011 ExitCare? Patient Information ?2013 [employer]. Normal [facility] CT Abdomen/Pelvis w/ Contras ton 08-18-2019 [...] Oral contrast amount in ml's: 0 Normal [facility] Valproic Acidon 11-20-2017 Valproic Acid 69 ug/mL Normal 50-125 [facility] Comment on above: Performed By: #### C NELY SPRING ####[facility] [place] [address] #### GLYHGB ####[address] [place] [address] Date last dose, Normal [facility] Comment on above: Performed By: #### C SAW CP ####[facility] [place] [address] #### GLYHGB ####[address] [address] Dose amount 1000MG Normal [facility] Comment on above: Performed By: #### C DP, CP ####[address] [address] #### GLYHGB ####[address] [address] Time last dose, 0835 Normal [facility] Comment on above: Result Comment: Perf ormed at [address] [address] Performed By: #### C DP, CP ####[address] [address] #### GLYHGB ####[address] [address] CBC with Diffon 11-15-2017 Abs. Basophil 0.00 k/uL Normal 0.0-0.2 [facility] Comment on above: Result Comment: Perf ormed at [address] [address] Performed By: #### C DP, CP ####[address] [address] Abs.Neutrophil (Seg) 3.40 k/uL Normal 1.3-9.1 [facility] Comment on above: Performed By: #### C DP, CP ####[address] [address] Basophils/100 WBC Auto (Bld) 1 % Normal 0-2 [facility] Comment on above: Performed By: #### C DP, CP ####[address] [address] Eosinophils 0.10 10*3/uL Normal 0.0-0.4 [facility] Comment on above: Performed By: #### C DP, CP ####[facility] [place] [address] Eosinophils/100 leukocytes 1 % Normal 0-4 [facility] Comment on above: Performed By: #### C DP, CP ####[facility] [place] [address] Erythrocyte distribution width Auto Ratio (RBC) 13.7 % Normal 11.5-14.9 [facility] Comment on above: Performed By: #### C DP, CP ####[facility] [place] [address] Erythrocytes (RBC) 4.24 10*6/uL Normal 4.0-5.2 [facility] Comment on above: Performed By: #### C DP, CP ####[facility] [place] [address] Hematocrit (HCT) 40.7 % Normal 36-46 [facility] Comment on above: Performed By: #### C DP, CP ####[facility] [place] [address] Hemoglobin mass conc (Bld) 13.8 g/dL Normal 12.0-16.0 [facility] Comment on above: Performed By: #### C DP, CP ####[facility] [place] [address] Lymphocytes 1.70 10*3/uL Normal 1.0-4.8 [facility] Comment on above: Performed By: #### C DP, CP ####[facility] [place] [address] Lymphocytes/100 leukocytes 28 % Normal 24-44 [facility] Comment on above: Performed By: #### C DP, CP ####[facility] [facility] [place] [address] MCH 32.6 pg Normal 26-34 [facility] Comment on above: Performed By: #### C DP, CP ####[facility] [place] [address] MCHC mass conc (RBC) 34.0 g/dL Normal 31-37 [facility] Comment on above: Performed By: #### C DP, CP ####[facility] [place] [address] MCV 95.9 fL Normal 80-100 [facility] Comment on above: Performed By: #### C DP, CP ####[facility] [place] [address] Monocytes 0.70 10*3/uL Normal 0.1-1.3 [facility] Comment on above: Performed By: #### C DP, CP ####[facility] [place] [address] Monocytes/100 leukocytes 13 % High 1-7 [facility] Comment on above: Performed By: #### C DP, CP ####[facility] [place] [address] Neutrophil (Seg) 57 % Normal 36-66 [facility] Comment on above: Performed By: #### C DP, CP ####[facility] [place] [address] Platelet mean volume (PMV) 8.1 fL Normal 6.0-12.0 [facility] Comment on above: Performed By: #### C DP, CP ####[facility] [place] [address].[place] [address] Platelets 250 10*3/uL Normal 150-450 [facility] Comment on above: Performed By: #### C DP, CP ####[facility] [place] [address] WBC (Leukocytes) 6.0 10*3/uL Normal 3.5-11.[address] [facility] Comment on above: Performed By: #### C DP, CP ####[facility] [place] [address] Auto Diff Performed NOT REPORTED Normal [facility] Comment on above: Performed By: #### C DP, CP ####[address] [address] Erythrocyte morphology NOT REPORTED Normal [facility] Comment on above: Performed By: #### C DP, CP ####[address] [address] Erythrocytes (RBC) NOT REPORTED Normal [facility] Comment on above: Performed By: #### C DP, CP ####[address] [address] Granulocytes/100 WBC (Bld) NOT REPORTED Normal 0.00-0.30 [facility] Comment on above: Performed By: #### C DP, CP ####[address] [address] Immature granulocytes #/vol (Bld) NOT REPORTED Normal 0 [facility] Comment on above: Performed By: #### C DP, CP ####[address] [address] Platelets NOT REPORTED Normal [facility] Comment on above: Performed By: #### C DP, CP ####[address] [address] WBC Morphology NOT REPORTED Normal [facility] Comment on above: Performed By: #### C DP, CP ####[facility] [place] [address] Comp Metabolic Profon 2017 (cont.) Normal [facility] Comment on above: Result Comment: Aver age GFR for 50-59 years old: 93 mL/min/1.73sq mChronic Kidney Disease: <60 mL/min/1.73sq mKidney failure: <15 mL/min/1.73sq meGFR calculated using average adult body mass. Additional eGFR calculator available at:http://www.[employer]/multiple_crcl_2011.htmPerformed at [facility] [address] [place] [address] Performed By: #### C DP, CP ####[address] [place] [address] #### GLYHGB ####[facility] [address] [place] [address] Alanine aminotransferase (ALT) 16 U/L Normal 5-33 [facility] Comment on above: Result Comment: SPEC IMEN MODERATELY HEMOLYZED, RESULTS MAY BE ADVERSELY AFFECTED Performed By: #### C DP, CP ####[address] [place] [address] #### GLYHGB ####[facility] [address] [place] [address] Albumin 4.2 g/dL Normal 3.5-5.2 [facility] Comment on above: Performed By: #### C DP, CP ####[facility] [place] [address] #### GLYHGB ####[facility] [address] [place] [address] Alkaline Phos 18 U/L Low 35-104 [facility] Comment on above: Performed By: #### C DP, CP ####[facility] [place] [address] #### GLYHGB ####[address] [address] Anion gap 13 mmol/L Normal 9-17 [facility] Comment on above: Performed By: #### C DP, CP ####[address] [place] [address] #### GLYHGB ####[address] [address] Aspartate aminotransferase (AST) 25 U/L Normal <32 [facility] Comment on above: Result Comment: SPEC IMEN MODERATELY HEMOLYZED, RESULTS MAY BE ADVERSELY AFFECTED Performed By: #### C DP, CP ####[address] [place] [address] #### GLYHGB ####[address] [address] Bilirubin Ql (U) 0.28 mg/dL Low 0.3-1.2 [facility] Comment on above: Performed By: #### C DP, CP ####[address] [place] [address] #### GLYHGB ####[address] [address] Calcium 10.1 mg/dL Normal 8.6-10.4 [facility] Comment on above: Performed By: #### C DP, CP ####[address] [place] [address] #### GLYHGB ####[address] [address] Chloride 99 mmol/L Normal 98-107 [facility] Comment on above: Performed By: #### C DP, CP ####[address] [address] #### GLYHGB ####[address] [address] CO2 28 mmol/L Normal 20-31 [facility] Comment on above: Performed By: #### C DP, CP ####[facility] [place] [address] #### GLYHGB ####[address] [address] Creatinine 1.04 mg/dL High 0.50-0.90 [facility] Comment on above: Performed By: #### C DP, CP ####[facility] [place] [address] #### GLYHGB ####[address] [place] [address] eGFR (non-black) mL/min/{1.73_m2} Normal >60 [facility] Comment on above: Performed By: #### C DP, CP ####[address] [address] #### GLYHGB ####[address] [place] [address] eGFR (non-black) 54 mL/min/{1.73_m2} Low >60 [facility] Comment on above: Performed By: #### C DP, CP ####[address] [address] #### GLYHGB ####[address] [address] Glucose mass conc 110 mg/dL High 70-[address] [facility] Comment on above: Performed By: #### C DP, CP ####[facility] [place] [address] #### GLYHGB ####[facility] [place] [address] Potassium molar conc 4.2 mmol/L Normal 3.7-5.3 [facility] Comment on above: Result Comment: SPEC IMEN MODERATELY HEMOLYZED, RESULTS MAY BE ADVERSELY AFFECTED Performed By: #### C DP, CP ####[facility] [place] [address] #### GLYHGB ####[facility] [place] [address] Protein 6.8 g/dL Normal 6.4-8.3 [facility] Comment on above: Performed By: #### C DP, CP ####[facility] [place] [address] #### GLYHGB ####[address] [place] [address] Sodium 140 mmol/L Normal 135-144 [facility] Comment on above: Performed By: #### C DP, CP ####[facility] [place] [address] #### GLYHGB ####[facility] [place] [address] Urea nitrogen 23 mg/dL High 6-20 [facility] Comment on above: Performed By: #### C DP, CP ####[facility] [place] [address] #### GLYHGB ####[address] [place] [address] Albumin/Globulin Ratio NOT REPORTED Normal 1.0-2.5 [facility] Comment on above: Performed By: #### C DP, CP ####[facility] [place] [address] #### GLYHGB ####[facility] [place] [address] BUN/CRE Ratio NOT REPORTED Normal 9-20 [facility] Comment on above: Performed By: #### C DP, CP ####[address] [address] #### GLYHGB ####[facility] [place] [address] Staging: NOT REPORTED Normal [facility] Comment on above: Performed By: #### C DP, CP ####[address] [address] #### GLYHGB ####[address] [address] MRI BRAIN WO CONTRASTon - MRI BRAIN [...] by:EILEEN Silvaigned by:Dilan Pathak MD11/15/18Final result Normal [facility] Ammoniaon 11-09-2017 Ammonia 35 umol/L Normal 11-51 [facility] Comment on above: Result Comment: Perf ormed at [facility] [address] [place] [address] Performed By: #### A MON ####[address] [address] B12/Folate Panelon 8 Folic Acid >20.0 Normal >4.8 [facility] Comment on above: Result Comment: Perf ormed at [facility] [address] [place] [address] Performed By: #### C DP, CMPX ####[address] [address] #### TREP, B12FOL ####[facility] [place] [address] Cobalamins (Vitamin B12) 1550 pg/mL High 232-1245 [facility] Comment on above: Performed By: #### C DP, CMPX ####[address] [address] #### TREP, B12FOL ####[address] [address] CBC with Diffon 11-09-2017 Abs. Basophil 0.00 k/uL Normal 0.0-0.2 [facility] Comment on above: Result Comment: Perf ormed at [facility] [address] [place] [address] Performed By: #### C DP, CMPX ####[address] [address] #### TREP, B12FOL ####[address] [address] Abs.Neutrophil (Seg) 5.90 k/uL Normal 1.3-9.1 [facility] Comment on above: Performed By: #### C DP, CMPX ####[address] [address] #### TREP, B12FOL ####[address] [address] Basophils/100 WBC Auto (Bld) 1 % Normal 0-2 [facility] Comment on above: Performed By: #### C DP, CMPX ####[facility] [place] [address] #### TREP, B12FOL ####[address] [address] Eosinophils 0.00 10*3/uL Normal 0.0-0.4 [facility] Comment on above: Performed By: #### C DP, CMPX ####[address] [address] #### TREP, B12FOL ####[address] [address] Eosinophils/100 leukocytes 0 % Normal 0-4 [facility] Comment on above: Performed By: #### C DP, CMPX ####[address] [address] #### TREP, B12FOL ####[facility] [place] [address] Erythrocyte distribution width Auto Ratio (RBC) 13.8 % Normal 11.5-14.9 [facility] Comment on above: Performed By: #### C DP, CMPX ####[facility] [place] [address] #### TREP, B12FOL ####[address] [address] Erythrocytes (RBC) 4.37 10*6/uL Normal 4.0-5.2 [facility] Comment on above: Performed By: #### C DP, CMPX ####[facility] [place] [address] #### TREP, B12FOL ####[address] [address] Hematocrit (HCT) 41.0 % Normal 36-46 [facility] Comment on above: Performed By: #### C DP, CMPX ####[address] [address] #### TREP, B12FOL ####[address] [address] Hemoglobin mass conc (Bld) 13.9 g/dL Normal 12.0-16.0 [facility] Comment on above: Performed By: #### C DP, CMPX ####[facility] [place] [address] #### TREP, B12FOL ####[address] [address] Lymphocytes 1.90 10*3/uL Normal 1.0-4.8 [facility] Comment on above: Performed By: #### C DP, CMPX ####[facility] [place] [address] #### TREP, B12FOL ####[address] [address] Lymphocytes/100 leukocytes 21 % Low 24-44 [facility] Comment on above: Performed By: #### C DP, CMPX ####[address] [address] #### TREP, B12FOL ####[address] [address] MCH 31.9 pg Normal 26-34 [facility] Comment on above: Performed By: #### C DP, CMPX ####[address] [address] #### TREP, B12FOL ####[address] [address] MCHC mass conc (RBC) 34.0 g/dL Normal 31-37 [facility] Comment on above: Performed By: #### C DP, CMPX ####[address] [address] #### TREP, B12FOL ####[address] [address] MCV 93.8 fL Normal 80-100 [facility] Comment on above: Performed By: #### C DP, CMPX ####[address] [address] #### TREP, B12FOL ####[address] [place] [address] Monocytes 1.00 10*3/uL Normal 0.1-1.3 [facility] Comment on above: Performed By: #### C DP, CMPX ####[facility] [place] [address] #### TREP, B12FOL ####[address] [address] Monocytes/100 leukocytes 12 % High 1-7 [facility] Comment on above: Performed By: #### C DP, CMPX ####[facility] [place] [address] #### TREP, B12FOL ####[address] [address] Neutrophil (Seg) 66 % Normal 36-66 [facility] Comment on above: Performed By: #### C DP, CMPX ####[address] [address] #### TREP, B12FOL ####[address] [address] Platelet mean volume (PMV) 8.4 fL Normal 6.0-12.0 [facility] Comment on above: Performed By: #### C DP, CMPX ####[address] [address] #### TREP, B12FOL ####[address] [address] Platelets 249 10*3/uL Normal 150-450 [facility] Comment on above: Performed By: #### C DP, CMPX ####[address] [address] #### TREP, B12FOL ####[address] [address] WBC (Leukocytes) 8.9 10*3/uL Normal 3.5-11.[address] [facility] Comment on above: Performed By: #### C DP, CMPX ####[address] [address] #### TREP, B12FOL ####[address] [address] Auto Diff Performed NOT REPORTED Normal [facility] Comment on above: Performed By: #### C DP, CMPX ####[address] [address] #### TREP, B12FOL ####[address] [address] Erythrocyte morphology NOT REPORTED Normal [facility] Comment on above: Performed By: #### C DP, CMPX ####[address] [place] [address] #### TREP, B12FOL ####[address] [address] Erythrocytes (RBC) NOT REPORTED Normal [facility] Comment on above: Performed By: #### C DP, CMPX ####[address] [address] #### TREP, B12FOL ####[address] [address] Granulocytes/100 WBC (Bld) NOT REPORTED Normal 0.00-0.30 [facility] Comment on above: Performed By: #### C DP, CMPX ####[address] [place] [address] #### TREP, B12FOL ####[address] [address] Immature granulocytes #/vol (Bld) NOT REPORTED Normal 0 [facility] Comment on above: Performed By: #### C DP, CMPX ####[address] [address] #### TREP, B12FOL ####[address] [place] [address] Platelets NOT REPORTED Normal [facility] Comment on above: Performed By: #### C DP, CMPX ####[address] [address] #### TREP, B12FOL ####[address] [place] [address] WBC Morphology NOT REPORTED Normal [facility] Comment on above: Performed By: #### C DP, CMPX ####[address] [address] #### TREP, B12FOL ####[address] [place] [address] Comp Metabolic Pr/rfx MGon 0 11-09-2017 Aspartate aminotransferase (AST) 37 U/L High <32 [facility] Comment on above: Performed By: #### C DP, CMPX ####[address] [address] #### TREP, B12FOL ####[facility] [address] [place] [address] (cont.) Normal [facility] Comment on above: Result Comment: Aver age GFR for 50-59 years old: 93 mL/min/1.73sq mChronic Kidney Disease: <60 mL/min/1.73sq mKidney failure: <15 mL/min/1.73sq meGFR calculated using average adult body mass. Additional eGFR calculator available at:http://www.[employer]/multiple_crcl_2011.htmPerformed at [facility] [address] [place] [address] Performed By: #### C DP, CMPX ####[facility] [place] [address] #### TREP, B12FOL ####[facility] [address] [place] [address] Alanine aminotransferase (ALT) 20 U/L Normal 5-33 [facility] Comment on above: Performed By: #### C DP, CMPX ####[facility] [place] [address] #### TREP, B12FOL ####[facility] [place] [address] Albumin 4.2 g/dL Normal 3.5-5.2 [facility] Comment on above: Performed By: #### C DP, CMPX ####[facility] [place] [address] #### TREP, B12FOL ####[facility] [place] [address] Alkaline Phos 21 U/L Low 35-104 [facility] Comment on above: Performed By: #### C DP, CMPX ####[facility] [place] [address] #### TREP, B12FOL ####[facility] [address] [place] [address] Anion gap 12 mmol/L Normal 9-17 [facility] Comment on above: Performed By: #### C DP, CMPX ####[facility] [place] [address] #### TREP, B12FOL ####[facility] [address] [place] [address] Bilirubin Ql (U) 0.28 mg/dL Low 0.3-1.2 [facility] Comment on above: Performed By: #### C DP, CMPX ####[facility] [place] [address] #### TREP, B12FOL ####[address] [address] Calcium 9.7 mg/dL Normal 8.6-10.4 [facility] Comment on above: Performed By: #### C DP, CMPX ####[address] [address] #### TREP, B12FOL ####[address] [address] Chloride 105 mmol/L Normal 98-107 [facility] Comment on above: Performed By: #### C DP, CMPX ####[address] [address] #### TREP, B12FOL ####[address] [address] CO2 26 mmol/L Normal 20-31 [facility] Comment on above: Performed By: #### C DP, CMPX ####[facility] [place] [address] #### TREP, B12FOL ####[address] [address] Creatinine 1.16 mg/dL High 0.50-0.90 [facility] Comment on above: Performed By: #### C DP, CMPX ####[address] [address] #### TREP, B12FOL ####[facility] [place] [address] eGFR (non-black) 48 mL/min/{1.73_m2} Low >60 [facility] Comment on above: Performed By: #### C DP, CMPX ####[facility] [place] [address] #### TREP, B12FOL ####[facility] [place] [address] eGFR (non-black) 58 mL/min/{1.73_m2} Low >60 [facility] Comment on above: Performed By: #### C DP, CMPX ####[facility] [place] [address] #### TREP, B12FOL ####[address] [address] Glucose mass conc 131 mg/dL High 70-[address] [facility] Comment on above: Performed By: #### C DP, CMPX ####[facility] [place] [address] #### TREP, B12FOL ####[facility] [place] [address] Potassium molar conc 3.8 mmol/L Normal 3.7-5.3 [facility] Comment on above: Performed By: #### C DP, CMPX ####[facility] [place] [address] #### TREP, B12FOL ####[facility] [place] [address] Protein 6.9 g/dL Normal 6.4-8.3 [facility] Comment on above: Performed By: #### C DP, CMPX ####[facility] [place] [address] #### TREP, B12FOL ####[facility] [place] [address] Sodium 143 mmol/L Normal 135-144 [facility] Comment on above: Performed By: #### C DP, CMPX ####[facility] [place] [address] [place] [address] #### TREP, B12FOL ####[facility] [place] [address] Urea nitrogen 21 mg/dL High 6-20 [facility] Comment on above: Performed By: #### C DP, CMPX ####[address] [place] [address] #### TREP, B12FOL ####[address] [place] [address] Albumin/Globulin Ratio NOT REPORTED Normal 1.0-2.5 [facility] Comment on above: Performed By: #### C DP, CMPX ####[address] [place] [address] #### TREP, B12FOL ####[facility] [place] [address] BUN/CRE Ratio NOT REPORTED Normal 9-20 [facility] Comment on above: Performed By: #### C DP, CMPX ####[facility] [place] [address] [place] [address] #### TREP, B12FOL ####[facility] [place] [address] Staging: NOT REPORTED Normal [facility] Comment on above: Performed By: #### C DP, CMPX ####[facility] [place] [address] #### TREP, B12FOL ####[address] [address] T.pallidum Ab Screenon 11-09 T.pallidum Ab Screen NONREACTIVE Normal NR [facility] Comment on above: Result Comment: T. p allidum antibodies are not detected.There is no serological evidence of infection with T. pallidum (early primary syphilis cannot be excluded). Retest in 2-4 weeks if syphilis is clinically suspect.Performed at [address] [address] Performed By: #### C DP, CMPX ####[facility] [place] [address] #### TREP, B12FOL ####[address] [address] CBC with Diffon 2017 Abs. Basophil 0.00 k/uL Normal 0.0-0.2 [facility] Comment on above: Result Comment: Perf ormed at [facility] [address] [place] [address] Performed By: #### C DP, CP ####[facility] [place] [address] #### GLYHGB ####[address] [address] Abs.Neutrophil (Seg) 4.20 k/uL Normal 1.3-9.1 [facility] Comment on above: Performed By: #### C DP, CP ####[facility] [place] [address] #### GLYHGB ####[address] [address] Basophils/100 WBC Auto (Bld) 1 % Normal 0-2 [facility] Comment on above: Performed By: #### C DP, CP ####[facility] [place] [address] #### GLYHGB ####[address] [address] Eosinophils 0.10 10*3/uL Normal 0.0-0.4 [facility] Comment on above: Performed By: #### C DP, CP ####[address] [address] #### GLYHGB ####[address] [address] Eosinophils/100 leukocytes 2 % Normal 0-4 [facility] Comment on above: Performed By: #### C DP, CP ####[address] [address] #### GLYHGB ####[address] [address] Erythrocyte distribution width Auto Ratio (RBC) 13.8 % Normal 11.5-14.9 [facility] Comment on above: Performed By: #### C DP, CP ####[address] [address] #### GLYHGB ####[address] [address] Erythrocytes (RBC) 4.27 10*6/uL Normal 4.0-5.2 [facility] Comment on above: Performed By: #### C DP, CP ####[facility] [place] [address] #### GLYHGB ####[address] [address] Hematocrit (HCT) 40.3 % Normal 36-46 [facility] Comment on above: Performed By: #### C DP, CP ####[address] [address] #### GLYHGB ####[address] [address] Hemoglobin mass conc (Bld) 13.8 g/dL Normal 12.0-16.0 [facility] Comment on above: Performed By: #### C DP, CP ####[address] [address] #### GLYHGB ####[address] [address] Lymphocytes 2.00 10*3/uL Normal 1.0-4.8 [facility] Comment on above: Performed By: #### C DP, CP ####[address] [address] #### GLYHGB ####[address] [address] Lymphocytes/100 leukocytes 29 % Normal 24-44 [facility] Comment on above: Performed By: #### C DP, CP ####[address] [address] #### GLYHGB ####[address] [address] MCH 32.4 pg Normal 26-34 [facility] Comment on above: Performed By: #### C DP, CP ####[address] [address] #### GLYHGB ####[address] [place] [address] MCHC mass conc (RBC) 34.3 g/dL Normal 31-37 [facility] Comment on above: Performed By: #### C DP, CP ####[facility] [place] [address] #### GLYHGB ####[address] [address] MCV 94.4 fL Normal 80-100 [facility] Comment on above: Performed By: #### C DP, CP ####[address] [address] #### GLYHGB ####[address] [address] Monocytes 0.80 10*3/uL Normal 0.1-1.3 [facility] Comment on above: Performed By: #### C DP, CP ####[facility] [place] [address] #### GLYHGB ####[address] [address] Monocytes/100 leukocytes 11 % High 1-7 [facility] Comment on above: Performed By: #### C DP, CP ####[facility] [place] [address] #### GLYHGB ####[address] [address] Neutrophil (Seg) 57 % Normal 36-66 [facility] Comment on above: Performed By: #### C DP, CP ####[facility] [place] [address] #### GLYHGB ####[address] [place] [address] Platelet mean volume (PMV) 8.6 fL Normal 6.0-12.0 [facility] Comment on above: Performed By: #### C DP, CP ####[facility] [place] [address] #### GLYHGB ####[address] [address] Platelets 234 10*3/uL Normal 150-450 [facility] Comment on above: Performed By: #### C DP, CP ####[address] [address] #### GLYHGB ####[address] [address] WBC (Leukocytes) 7.1 10*3/uL Normal 3.5-11.[address] [facility] Comment on above: Performed By: #### C DP, CP ####[address] [address] #### GLYHGB ####[address] [address] Auto Diff Performed NOT REPORTED Normal [facility] Comment on above: Performed By: #### C DP, CP ####[facility] [place] [address] #### GLYHGB ####[address] [place] [address] Erythrocyte morphology NOT REPORTED Normal [facility] Comment on above: Performed By: #### C DP, CP ####[facility] [place] [address] #### GLYHGB ####[address] [address] Erythrocytes (RBC) NOT REPORTED Normal [facility] Comment on above: Performed By: #### C DP, CP ####[facility] [place] [address] #### GLYHGB ####[facility] [place] [address] Granulocytes/100 WBC (Bld) NOT REPORTED Normal 0.00-0.30 [facility] Comment on above: Performed By: #### C DP, CP ####[facility] [place] [address] #### GLYHGB ####[address] [address] Immature granulocytes #/vol (Bld) NOT REPORTED Normal 0 [facility] Comment on above: Performed By: #### C DP, CP ####[facility] [place] [address] #### GLYHGB ####[address] [place] [address] Platelets NOT REPORTED Normal [facility] Comment on above: Performed By: #### C DP, CP ####[facility] [place] [address] #### GLYHGB ####[address] [place] [address] WBC Morphology NOT REPORTED Normal [facility] Comment on above: Performed By: #### C DP, CP ####[facility] [place] [address] #### GLYHGB ####[facility] [place] [address] Comp Metabolic Profon 2017 (cont.) Normal [facility] Comment on above: Result Comment: Aver age GFR for 50-59 years old: 93 mL/min/1.73sq mChronic Kidney Disease: <60 mL/min/1.73sq mKidney failure: <15 mL/min/1.73sq meGFR calculated using average adult body mass. Additional eGFR calculator available at:http://www.[employer]/multiple_crcl_2011.htmPerformed at [facility] [address] [place] [address] Performed By: #### C DP, CP ####[facility] [place] [address] #### GLYHGB ####[facility] [place] [address] Alanine aminotransferase (ALT) 13 U/L Normal 5-33 [facility] Comment on above: Performed By: #### C DP, CP ####[facility] [place] [address] #### GLYHGB ####[facility] [id number] [place] [address] Albumin 4.2 g/dL Normal 3.5-5.2 [facility] Comment on above: Performed By: #### C DP, CP ####[facility] [place] [address] #### GLYHGB ####[facility] [id number] [place] [address] Alkaline Phos 23 U/L Low 35-104 [facility] Comment on above: Performed By: #### C DP, CP ####[facility] [place] [address] #### GLYHGB ####[facility] [id number] [place] [address] Anion gap 12 mmol/L Normal 9-17 [facility] Comment on above: Performed By: #### C DP, CP ####[facility] [place] [address] #### GLYHGB ####[address] [place] [address] Aspartate aminotransferase (AST) 17 U/L Normal <32 [facility] Comment on above: Performed By: #### C DP, CP ####[facility] [place] [address] #### GLYHGB ####[address] [address] Bilirubin Ql (U) 0.36 mg/dL Normal 0.3-1.2 [facility] Comment on above: Performed By: #### C DP, CP ####[facility] [place] [address] [place] [address] #### GLYHGB ####[address] [address] Calcium 9.9 mg/dL Normal 8.6-10.4 [facility] Comment on above: Performed By: #### C DP, CP ####[facility] [place] [address] [place] [address] #### GLYHGB ####[address] [place] [address] Chloride 102 mmol/L Normal 98-107 [facility] Comment on above: Performed By: #### C DP, CP ####[facility] [place] [address] #### GLYHGB ####[address] [place] [address] CO2 27 mmol/L Normal 20-31 [facility] Comment on above: Performed By: #### C DP, CP ####[facility] [place] [address] #### GLYHGB ####[address] [place] [address] Creatinine 1.00 mg/dL High 0.50-0.90 [facility] Comment on above: Performed By: #### C DP, CP ####[facility] [place] [address] #### GLYHGB ####[address] [address] eGFR (non-black) mL/min/{1.73_m2} Normal >60 [facility] Comment on above: Performed By: #### C DP, CP ####[facility] [place] [address] #### GLYHGB ####[address] [address] eGFR (non-black) 57 mL/min/{1.73_m2} Low >60 [facility] Comment on above: Performed By: #### C DP, CP ####[facility] [place] [address] #### GLYHGB ####[address] [place] [address] Glucose mass conc 95 mg/dL Normal 70-[address] [facility] Comment on above: Performed By: #### C DP, CP ####[facility] [place] [address] [place] [address] #### GLYHGB ####[address] [address] Potassium molar conc 4.3 mmol/L Normal 3.7-5.3 [facility] Comment on above: Performed By: #### C DP, CP ####[facility] [place] [address] #### GLYHGB ####[facility] [place] [address] Protein 6.8 g/dL Normal 6.4-8.3 [facility] Comment on above: Performed By: #### C DP, CP ####[facility] [place] [address] #### GLYHGB ####[address] [address] Sodium 141 mmol/L Normal 135-144 [facility] Comment on above: Performed By: #### C DP, CP ####[facility] [place] [address] #### GLYHGB ####[address] [place] [address] Urea nitrogen 21 mg/dL High 6-20 [facility] Comment on above: Performed By: #### C DP, CP ####[facility] [place] [address] #### GLYHGB ####[address] [place] [address] Albumin/Globulin Ratio NOT REPORTED Normal 1.0-2.5 [facility] Comment on above: Performed By: #### C DP, CP ####[facility] [place] [address] [place] [address] #### GLYHGB ####[facility] [place] [address] BUN/CRE Ratio NOT REPORTED Normal 9-20 [facility] Comment on above: Performed By: #### C DP, CP ####[facility] [place] [address] #### GLYHGB ####[address] [address] Staging: NOT REPORTED Normal [facility] Comment on above: Performed By: #### C DP, CP ####[facility] [place] [address] #### GLYHGB ####[address] [address] Hemoglobin A1Con 2017 Glucose mass conc 94 mg/dL Normal [facility] Comment on above: Result Comment: The ADA and AACC recommend providing the estimated average glucose result to permit better patient understanding of their HBA1c result.Performed at [address] [place] [address] Performed By: #### C DP, CP ####[facility] [place] [address] #### GLYHGB ####[address] [address] Hemoglobin A1c/Hemoglobin.total mass fraction (Bld) 4.9 % Normal 4.0-6.0 [facility] Comment on above: Performed By: #### C DP, CP ####[facility] [place] [address] #### GLYHGB ####[address] [address] Valproic Acidon 11-01-2017 Valproic Acid 56 ug/mL Normal 50-125 [facility] Comment on above: Performed By: #### V ALPC ####[facility] [place] [address] Date last dose, 616664 Normal [facility] Comment on above: Performed By: #### V ALPC ####[facility] [place] [address] Dose amount 500 Normal [facility] Comment on above: Performed By: #### V ALPC ####[facility] [place] [address] Time last dose, 0842 Normal [facility] Comment on above: Result Comment: Perf ormed at [facility] [address] [place] [address] Performed By: #### V ALPC ####[facility] [place] [address] Vital Signs Date Time Vital Sign Value Performing Clinician Facility 04-03-2024 08:33-0400 Body height 160.02 cm [facility] 04-03-2024 08:33-0400 Body mass index (BMI) [Ratio] 27.1 kg/m2 [facility] 04-03-2024 08:33-0400 Body temperature 97.6 [degF] [facility] 04-03-2024 08:33-0400 Body weight 69.56 kg [facility] 04-03-2024 08:33-0400 Diastolic blood pressure 85 mm[Hg] [facility] 04-03-2024 08:33-0400 Heart rate 78 /min [facility] 04-03-2024 08:33-0400 Respiratory rate 16 /min [facility] 04-03-2024 08:33-0400 SaO2% (BldA) [Mass fraction] 99 % [facility] 04-03-2024 08:33-0400 Systolic blood pressure 145 mm[Hg] [facility] 10-08-2023 18:48-0400 Body mass index (BMI) [Ratio] 29.26 kg/m2 Rylie Griffin DO Work Phone: [employer] 10-08-2023 18:48-0400 Body temperature 98.4 [degF] Rylie Griffin DO Work Phone: [employer] 10-08-2023 18:48-0400 Body weight 72.58 kg Rylie Griffin DO Work Phone: [employer] 10-08-2023 18:48-0400 Diastolic blood pressure 97 mm[Hg] Rylie Griffin DO Work Phone: [employer] 10-08-2023 18:48-0400 Heart rate 58 /min Rylie Griffin DO Work Phone: [employer] 10-08-2023 18:48-0400 Respiratory rate 18 /min Rylie Griffin DO Work Phone: [employer] 10-08-2023 18:48-0400 SaO2% (BldA) [Mass fraction] 99 % Rylie Griffin DO Work Phone: [employer] 10-08-2023 18:48-0400 Systolic blood pressure 149 mm[Hg] Rylie Griffin DO Work Phone: [employer] 09-19-2023 16:34-0400 Body height 160.02 cm [facility] 09-19-2023 16:34-0400 Body mass index (BMI) [Ratio] 27.1 kg/m2 [facility] 09-19-2023 16:34-0400 Body temperature 96.6 [degF] [facility] 09-19-2023 16:34-0400 Body weight 69.39 kg [facility] 09-19-2023 16:34-0400 Heart rate 72 /min [facility] 09-19-2023 16:34-0400 Respiratory rate 16 /min [facility] 09-19-2023 16:34-0400 SaO2% (BldA) [Mass fraction] 100 % [facility] 09-05-2023 15:00-0400 Body height 160 cm Radha Penaloza PHYSICIAN'S AIDE-[employer]ATBED OWNER OPERATOR Work Phone: [facility] 09-05-2023 15:00-0400 Body mass index (BMI) [Ratio] 27.32 kg/m2 Radha Penaloza PHYSICIAN'S AIDE-[employer]AT[employer] OWNER OPERATOR Work Phone: [employer] 09-05-2023 15:00-0400 Body weight 69.94 kg Radha Penaloza PHYSICIAN'S AIDE-[employer]AT[employer] OWNER OPERATOR [facility] 09-05-2023 15:00-0400 Diastolic blood pressure 94 mm[Hg] Radha Penaloza PHYSICIAN'S AIDE-FLATBED OWNER OPERATOR Work Phone: [facility] 09-05-2023 15:00-0400 Heart rate 135 /min Radha Penaloza PHYSICIAN'S AIDE-[employer]AT[employer] OWNER OPERATOR Work Phone: [facility] 09-05-2023 15:00-0400 Systolic blood pressure 155 mm[Hg] Radha Penaloza PHYSICIAN'S AIDE-FLATBED OWNER OPERATOR Work Phone: [facility] [employer] [facility] 07-06-2023 09:30-0500 Body height 160.02 cm Santa Augustin Other [facility] 07-06-2023 09:30-0500 Body mass index (BMI) [Ratio] 26.75 kg/m2 Santa Augustin Other [facility] [employer] Other 07-06-2023 09:30-0500 Body weight 68.49 kg Santa Augustin Other [facility] 07-06-2023 09:30-0500 Diastolic blood pressure 85 mm[Hg] Santa Augustin Other [facility] 07-06-2023 09:30-0500 Systolic blood pressure 129 mm[Hg] Santa Augustin Other [facility] 03-23-2023 16:40-0400 Body height 160.02 cm Zachary Pascual Other [facility] Other 03-23-2023 16:40-0400 Body mass index (BMI) [Ratio] 26.92 kg/m2 Zachary Maria Dolores Other [facility] Other 03-23-2023 16:40-0400 Body temperature 97.4 [degF] Zachary Maria Dolores Other [facility] Other 03-23-2023 16:40-0400 Body weight 68.95 kg Zachary Maria Dolores Other [facility] Other 03-23-2023 16:40-0400 Diastolic blood pressure 78 mm[Hg] Zachary Maria Dolores Other [facility] Other 03-23-2023 16:40-0400 Respiratory rate 18 /min Zachary Maria Dolores Other [facility] Other 03-23-2023 16:40-0400 SaO2% (BldA) [Mass fraction] 96 % Zachary Maria Dolores Other [facility] Other 03-23-2023 16:40-0400 Systolic blood pressure 113 mm[Hg] Zachary Maria Dolores Other [facility] Other 01-20-2023 15:15-0400 Body height 160.02 cm Santa Augustin Other [facility] Other 01-20-2023 15:15-0400 Body mass index (BMI) [Ratio] 26.21 kg/m2 Santa Augustin Other [facility] Other 01-20-2023 15:15-0400 Body weight 67.13 kg Santa Augustin Other [facility] Other 01-20-2023 15:15-0400 Diastolic blood pressure 78 mm[Hg] Santa Augustin Other [facility] Other 01-20-2023 15:15-0400 Systolic blood pressure 116 mm[Hg] Santa Augustin Other [facility] Other 11-16-2022 14:40-0400 Body height 160.02 cm Zachary Maria Dolores Other [facility] Other 11-16-2022 14:40-0400 Body mass index (BMI) [Ratio] 27.77 kg/m2 Zachary Maria Dolores Other [facility] Other 11-16-2022 14:40-0400 Body temperature 96.7 [degF] Zachary Maria Dolores Other [facility] Other 11-16-2022 14:40-0400 Body weight 71.12 kg Zachary Maria Dolores Other [facility] Other 11-16-2022 14:40-0400 Diastolic blood pressure 69 mm[Hg] Zachary Maria Dolores Other [facility] Other 11-16-2022 14:40-0400 Respiratory rate 18 /min Zachary Maria Dolores Other [facility] Other 11-16-2022 14:40-0400 SaO2% (BldA) [Mass fraction] 99 % Zachary Maria Dolores Other [facility] Other 11-16-2022 14:40-0400 Systolic blood pressure 108 mm[Hg] Zachary Maria Dolores Other [facility] Other 05-06-2022 10:40-0500 Body height 160.02 cm Zacahry Maria Dolores Other [facility] Other 05-06-2022 10:40-0500 Body mass index (BMI) [Ratio] 27.42 kg/m2 Zachary Maria Dolores Other [facility] Other 05-06-2022 10:40-0500 Body weight 70.22 kg Zachary Maria Dolores Other [facility] Other 05-06-2022 10:40-0500 Diastolic blood pressure 54 mm[Hg] Zachary Maria Dolores Other [facility] Other 05-06-2022 10:40-0500 Respiratory rate 18 /min Zachary Maria Dolores Other [facility] Other 05-06-2022 10:40-0500 SaO2% (BldA) [Mass fraction] 99 % Zachary Maria Dolores Other [facility] Other 05-06-2022 10:40-0500 Systolic blood pressure 122 mm[Hg] Zachary Maria Dolores Other [facility] Other 03-23-2022 07:30-0400 Body temperature 97.9 [degF] MD Santa Augustin Work Phone: [facility] 03-23-2022 07:30-0400 Diastolic blood pressure 90 mm[Hg] MD Santa Augustin Work Phone: [facility] 03-23-2022 07:30-0400 Heart rate 90 /min MD Santa Augustin Work Phone: [facility] 03-23-2022 07:30-0400 SaO2% (BldA) [Mass fraction] 97 % MD Santa Augustin Work Phone: [facility] 03-23-2022 07:30-0400 Systolic blood pressure 133 mm[Hg] MD Santa Augustin Work Phone: [facility] 03-22-2022 22:24-0400 Respiratory rate 16 /min MD Santa Augustin Work Phone: [facility] 03-22-2022 09:00-0400 Body weight 73.93 kg MD Santa Augustin Work Phone: [facility] 03-18-2022 09:21-0400 Body height 160.02 cm MD Santa Augustin Work Phone: [facility] 03-11-2022 23:31-0400 Body temperature 97.2 [degF] MD Santa Augustin Work Phone: [facility] 03-11-2022 23:31-0400 Diastolic blood pressure 95 mm[Hg] MD Santa Augustin Work Phone: [facility] 03-11-2022 23:31-0400 Heart rate 76 /min MD Santa Augustin Work Phone: [facility] 03-11-2022 23:31-0400 Respiratory rate 18 /min MD Santa Augustin Work Phone: [facility] 03-11-2022 23:31-0400 SaO2% (BldA) [Mass fraction] 100 % MD Santa Augustin Work Phone: [facility] 03-11-2022 23:31-0400 Systolic blood pressure 187 mm[Hg] MD Santa Augustin Work Phone: [facility] 03-11-2022 18:16-0400 Body height 160.02 cm MD Santa Augustin Work Phone: [facility] 03-11-2022 18:16-0400 Body weight 72 kg MD Santa Augustin Work Phone: [facility] 09-14-2021 15:34-0400 Body height 160 cm Juan Adames MD Work Phone: [facility] 09-14-2021 15:34-0400 Body mass index (BMI) [Ratio] 27.63 kg/m2 Juan Adames MD Work Phone: [facility] 09-14-2021 15:34-0400 Body weight 70.76 kg Juan Adames MD Work Phone: [facility] 09-14-2021 15:34-0400 Diastolic blood pressure 86 mm[Hg] Juan Adames MD Work Phone: [facility] 09-14-2021 15:34-0400 Heart rate 69 /min Juan Adames MD Work Phone: [facility] 09-14-2021 15:34-0400 Respiratory rate 16 /min Juan Adames MD Work Phone: [facility] 09-14-2021 15:34-0400 SaO2% (BldA) [Mass fraction] 97 % Juan Adames MD Work Phone: [facility] 09-14-2021 15:34-0400 Systolic blood pressure 132 mm[Hg] Juan Adames MD Work Phone: [facility] 05-06-2021 16:25-0500 Body height 160.02 cm Geneva Naik Other [facility] Other 05-06-2021 16:25-0500 Body mass index (BMI) [Ratio] 29.05 kg/m2 Geneva Naik Other [facility] Other 05-06-2021 16:25-0500 Body temperature 98.6 [degF] Geneva Naik Other [facility] Other 05-06-2021 16:25-0500 Body weight 74.39 kg Geneva Naik Other [facility] Other 05-06-2021 16:25-0500 Diastolic blood pressure 90 mm[Hg] Geneva Naik Other [facility] Other 05-06-2021 16:25-0500 Respiratory rate 18 /min Geneva Naik Other [facility] Other 05-06-2021 16:25-0500 SaO2% (BldA) [Mass fraction] 100 % Geneva Naik Other [facility] Other 05-06-2021 16:25-0500 Systolic blood pressure 142 mm[Hg] Geneva Naik Other [facility] Other 04-01-2021 16:40-0400 Body height 160.02 cm Zachary Maria Dolores Other [facility] Other 04-01-2021 16:40-0400 Body mass index (BMI) [Ratio] 29.37 kg/m2 Zachary Maria Dolores Other [facility] Other 04-01-2021 16:40-0400 Body temperature 97.1 [degF] Zachary Maria Dolores Other [facility] Other 04-01-2021 16:40-0400 Body weight 75.21 kg Zachary Maria Dolores Other [facility] Other 04-01-2021 16:40-0400 Diastolic blood pressure 82 mm[Hg] Zachary Maria Dolores Other [facility] Other 04-01-2021 16:40-0400 Respiratory rate 18 /min Zachary Maria Dolores Other [facility] Other 04-01-2021 16:40-0400 SaO2% (BldA) [Mass fraction] 98 % Zachary Maria Dolores Other [facility] Other 04-01-2021 16:40-0400 Systolic blood pressure 116 mm[Hg] Zachary Maria Dolores Other [facility] Other 08-22-2020 14:30-0400 BMI (Body Mass Index) 26.57 kg/m2 [facility] 08-22-2020 14:30-0400 Body weight 68.04 kg [facility] 08-22-2020 14:30-0400 Height 160 cm [facility] Encounters Encounter Date Encounter Type Care Provider Facility Start: 07-04-2024 End: 07-04-2024 ambulatory CHRISTINE STEPHANIE Facility:[facility] Start: 07-04-2024 End: 07-04-2024 Patient encounter procedure Christine Brown OD Work Phone: Ophthalmology Comment on above: Downbeat nystagmus ( Primary Dx); Hypertropia of right eye Start: 05-23-2024 End: 05-23-2024 ambulatory CHRISTINE BROWN Facility:[facility] Start: 05-23-2024 End: 05-23-2024 Patient encounter procedure Christine Brown OD Work Phone: Ophthalmology Comment on above: Downbeat nystagmus ( Primary Dx); Hypertropia of right eye Start: 04-13-2024 End: 04-13-2024 Progressiono pSiFlow Technologyheet Vandana Chen DO Work Phone: [facility] Start: 04-13-2024 End: 04-13-2024 Bamboo flowsheet Vandana Chen DO Work Phone: [facility] Start: 04-13-2024 End: 04-13-2024 Office outpatient new 60 minutes Vandana Chen DO Work Phone: [facility] Comment on above: Downbeat nystagmus ( Primary Dx); Diplopia; Age-related nuclear cataract of both eyes; Dry eyes Start: 04-13-2024 End: 04-13-2024 ambulatory VANDANA CHEN Not Available Start: 04-03-2024 End: 04-03-2024 ambulatory [facility] Work Phone: Start: 04-03-2024 End: 04-03-2024 Patient encounter procedure [facility] Physician [facility] [place] Work Phone: Start: 03-24-2024 Non-patient / Non-visit [facility] Physician [facility] Work Phone: Start: 02-10-2024 End: 02-10-2024 Bamboo flowsheet Ruby Asencio OT Work Phone: [facility] Start: 02-10-2024 End: 02-10-2024 Bamboo flowsheet Ruby Asencio OT Work Phone: [facility] Start: 02-10-2024 End: 02-10-2024 ambulatory [facility] Comment on above: Closed fracture of d istal end of right radius with routine healing, unspecified fracture morphology, subsequent encounter; Closed nondisplaced fracture of styloid process of right ulna with routine healing Start: 02-01-2024 Non-patient / Non-visit [facility] Physician [facility] Work Phone: Start: 01-30-2024 End: 01-30-2024 Bamboo flowsheet Gretchen Jensen SERVICES EXECUTIVE Work Phone: [facility] Start: 01-30-2024 End: 01-30-2024 Bamboo flowsheet Gretchen Jensen SERVICES EXECUTIVE Work Phone: [facility] Start: 01-30-2024 End: 01-30-2024 Office outpatient visit 10 minutes Gretchen Fried Aplalanis SERVICES EXECUTIVE Work Phone: [facility] Comment on above: Closed fracture of d istal end of right radius with routine healing, unspecified fracture morphology, subsequent encounter (Primary Dx); Closed nondisplaced fracture of styloid process of right ulna with routine healing Start: 01-30-2024 End: 01-30-2024 ambulatory GRETCHEN B APLING Not Available Start: 12-28-2023 End: 12-28-2023 ambulatory GRETCHEN B APLING Not Available Start: 11-30-2023 End: 11-30-2023 ambulatory GRETCHEN B APLING Not Available Start: 11-07-2023 End: 11-07-2023 ambulatory GRETCHEN B APLING Not Available Start: 10-19-2023 End: 10-19-2023 ambulatory GRETCHEN B APLING Not Available Start: 10-10-2023 End: 10-10-2023 ambulatory GRETCHEN B APLING Not Available Start: 10-09-2023 ambulatory [place] [facility] Start: 10-08-2023 End: 10-08-2023 Emergency department patient visit [place] [facility] Start: 10-08-2023 End: 10-08-2023 Emergency department patient visit Rylie Elias ROBBINS Work Phone: [facility] Comment on above: Closed fracture of r ight wrist, initial encounter (Primary Dx) Start: 09-22-2023 End: 09-22-2023 Telephone encounter Eboni Jara [facility] Physicians General Surgery Start: 09-19-2023 End: 09-19-2023 ambulatory [facility] Work Phone: Start: 09-19-2023 End: 09-19-2023 Patient encounter procedure [facility]ician Group-[facility] Nephrology Work Phone: Start: 09-05-2023 End: 09-05-2023 ambulatory RADHA PENALOZA [facility] Start: 09-05-2023 End: 09-05-2023 Office outpatient visit 15 minutes Radha Penaloza PHYSICIAN'S AIDE-FLATBED OWNER OPERATOR Work Phone: [facility] Comment on above: Chronic constipation (Primary Dx) Start: 08-29-2023 Non-patient / Non-visit [facility] Work Phone: Start: 07-06-2023 End: 07-06-2023 ambulatory [place] Other [facility] Other Start: 07-06-2023 Encounter for genera l adult medical examination without abnormal findings [place] [facility] Start: 07-06-2023 Periodic preventive med est patient 40-64yrs [place] [facility] Start: 07-06-2023 End: 07-06-2023 Patient encounter procedure [facility] Start: 03-23-2023 End: 03-23-2023 ambulatory Zachary Maria Dolores Other [facility] Other Start: 03-23-2023 Office outpatient vi sit 15 minutes Zachary Maria Dolores [facility] Nephrology Start: 01-20-2023 End: 01-20-2023 ambulatory [place] Other [facility] Other Start: 01-20-2023 Office outpatient vi sit 15 minutes Santa [place]in [facility] Start: 11-16-2022 End: 11-16-2022 ambulatory Zachary Maria Dolores Other [facility] Other Start: 11-16-2022 Office outpatient vi sit 25 minutes Zachary Maria Dolores [facility] Nephrology Start: 06-21-2022 End: 06-21-2022 ambulatory [place] [facility] Start: 06-21-2022 End: 06-21-2022 Office outpatient visit 15 minutes Juan Adames MD Work Phone: [facility] Comment on above: KALEN (generalized anx iety disorder) Start: 05-26-2022 End: 05-27-2022 ambulatory JUAN ADAMES Facility:[facility] Start: 05-14-2022 ambulatory [place] [facility] Ambulatory Start: 05-08-2022 End: 05-09-[address] [place] Facility:[facility] Start: 05-06-2022 End: 05-06-2022 ambulatory Zachary Maria Dolores Other [facility] Other Start: 05-06-2022 Office outpatient vi sit 15 minutes Zachary Maria Dolores [facility] Start: 04-26-2022 End: 04-26-2022 [facility] Start: 04-26-2022 End: 04-26-2022 Phys/qhp telephone evaluation 11-20 min Juan Adames MD Work Phone: [facility] Comment on above: Long-term use of hig h-risk medication (Primary Dx); Bipolar affective disorder, manic, severe, with psychotic behavior (HCC) Start: 04-20-2022 End: 04-20-2022 ambulatory Zachary Mraia Dolores Other [facility] Other Start: 04-20-2022 Telephone encounter Zachary Mezar [facility] Start: 04-19-2022 End: 04-19-2022 [facility] Start: 04-19-2022 End: 04-19-2022 Office outpatient visit 25 minutes Juan Adames MD Work Phone: [facility] Comment on above: Bipolar affective di sorder, manic, severe, with psychotic behavior (HCC) (Primary Dx); KALEN (generalized anxiety disorder) Start: 04-08-2022 End: 04-09-[address] DENTON DELGADO Facility:[facility] Start: 03-31-2022 Adult health examination [place] Other [facility] Other Start: 03-31-2022 Problem, abnormal examination [place] Other [facility] Other Start: 03-24-2022 ambulatory [place] [facility] Start: 03-12-2022 End: 03-23-2022 Evaluation and management of inpatient Marco A Zaman Facility:[facility] Start: 03-11-2022 End: 03-23-2022 Evaluation and management of inpatient MD [place] Work Phone: [facility] Start: 02-12-2022 End: 02-12-2022 ambulatory [place] [facility] Start: 02-12-2022 End: 02-12-2022 Phys/qhp telephone evaluation 11-20 min Juan Adames MD Work Phone: [facility] Comment on above: Bipolar 1 disorder, manic, moderate (HCC) (Primary Dx); Anxiety Start: 02-09-2022 Orders Only Juan Adames MD Work Phone: [facility] Start: 01-22-2022 End: 01-23-2022 ambulatory JUAN ADAMES Facility:[facility] Start: 01-18-2022 End: 01-18-2022 ambulatory [place] [facility] Start: 12-10-2021 End: 12-10-2021 ambulatory Zachary Maria Dolores Other [facility] Other Start: 12-10-2021 Telephone encounter Zachary Maria Dolores [facility] Start: 12-07-2021 End: 12-07-2021 ambulatory ROSMERY TAVAERS . Facility:[facility] Start: 12-05-2021 End: 12-06-2021 ambulatory JUAN ADAMES Facility:[facility] Start: 11-19-2021 Documentation procedure Delmy Adames MD Work Phone: [facility] Start: 11-17-2021 End: 11-17-2021 ambulatory Zachary Maria Dolores Other [facility] Other Start: 11-17-2021 Telephone encounter Zachary Maria Dolores [facility] [place] Start: 09-21-2021 End: 09-22-[address] [place] Facility:[facility] Start: 09-14-2021 End: 09-14-2021 ambulatory [place] [facility] Start: 09-14-2021 End: 09-14-2021 Office outpatient visit 25 minutes Juan Adames MD Work Phone: [facility] Comment on above: KALEN (generalized anx iety disorder) (Primary Dx); Bipolar 1 disorder, manic, mild (HCC); Long-term use of high-risk medication; Anxiety Start: 08-25-2021 Orders Only Yuni Khan Gr und FLATBED OWNER OPERATOR Work Phone: [facility] Comment on above: Anxiety (Primary Dx) KALEN (generalized anx iety disorder) Start: 08-21-2021 [address] Ebony Black LPN [facility] Comment on above: KALEN (generalized anx iety disorder) Start: 05-21-2021 Refill Ami Vamsi VELASQUEZ [facility] Comment on above: KALEN (generalized anx iety disorder) Start: 05-06-2021 End: 05-06-2021 ambulatory Geneva Naik [facility] Other Start: 05-06-2021 Office outpatient vi sit 15 minutes Geneva Naik [facility] [place] Start: 04-01-2021 Office outpatient vi sit 15 minutes Zachary Pascual [facility] Nephrology Start: 02-13-2021 End: 02-13-2021 Office outpatient visit 25 minutes Juan Adames MD Work Phone: [facility] Comment on above: KALEN (generalized anx iety disorder) Start: 01-27-2021 Documentation procedure Fred Tenorio LPN [facility] Start: 08-22-2020 End: 08-22-2020 Phys/qhp telephone evaluation 21-30 min Juan Adames Work Phone: [facility] Comment on above: Bipolar 1 disorder, manic, mild (HCC) (Primary Dx); KALEN (Generalized Anxiety Disorder); Long-term use of high-risk medication Start: 07-14-2020 End: 07-14-2020 Refill Juan Adames Work Phone: [facility] Comment on above: KALEN (Generalized Anx iety Disorder) (Primary Dx) Start: 10-26-2017 End: 11-22-2017 Evaluation and management of inpatient [place] Procedures Date Procedure Procedure Detail Performing Clinician Start: 01-30-2024 Radex wrist 2 views Alvaro Jensen SERVICES EXECUTIVE Work Phone: Start: 10-08-2023 Radex wrist complete minimum 3 views Carrie Quinten PHYSICIAN'S AIDE - FLATBED OWNER OPERATOR Work Phone: Start: 09-07-2021 Colonoscopy Juan rodrigues MD Work Phone: Start: 11-11-2020 Mammography Juan rodrigues MD Work Phone: Start: 10-29-2020 Mammography Heidi portillo TONGUE BINDER Start: 11-22-2017 DISCHARGE PATIENT [place] Start: 11-20-2017 VALPROIC ACID LEVEL, TOTAL [place] Start: 11-15-2017 Mri brain brain stem w/o contrast material [place] Start: 11-15-2017 Blood count complete auto&auto difrntl wbc [place] Start: 11-15-2017 Comprehensive metabo lic panel [place] Start: 11-09-2017 AMMONIA [place] [facility]KEON Start: 11-09-2017 Blood count complete auto&auto difrntl wbc [place] Start: 11-09-2017 COMPREHENSIVE METABO LIC PANEL W/ REFLEX TO MG FOR LOW K [place] Start: 11-09-2017 T. PALLIDUM AB [facility] Start: 11-09-2017 VITAMIN B12 AND FOLATE [place] Start: 11-09-2017 C.TRACHOMATIS N.GONO RRHOEAE DNA, URINE [place] Start: 11-08-2017 IP CONSULT TO SUPPORT ENGINEER AL MEDICINE [place] Start: 11-08-2017 MISCELLANEOUS NURSIN G CARE ORDER (SPECIFY) [place] Start: 2017 Blood count complete auto&auto difrntl wbc [place] Start: 2017 Comprehensive metabo lic panel [place] Start: 2017 Hemoglobin glycosylated a1c [place] Start: 11-03-2017 PT EVAL AND TREAT [place] Start: 11-01-2017 VALPROIC ACID LEVEL, TOTAL [place] Start: 10-26-2017 DIET GENERAL [facility] Start: 10-26-2017 FULL CODE [facility] [place] [facility] Start: 10-26-2017 SUICIDE PRECAUTIONS [place] [...] Treatment Date Care Activity Detail Author Start: 11-03-2034 RSV Vaccine (1 - 1-d ose 75+ series) RSV Vaccine (1 - 1-dose 75+ series) [facility] Start: 09-08-2031 Screening for malign ant neoplasm of colon [facility] Start: 05-31-2029 DTaP,Tdap and Td Vaccines (2 - Td or Tdap) DTaP,Tdap and Td Vaccines (2 - Td or Tdap) [facility] Start: 05-31-2029 DTaP/Tdap/Td vaccine (2 - Td or Tdap) DTaP/Tdap/Td vaccine (2 - Td or Tdap) [facility] Start: 05-31-2029 Tetanus vaccination Tetanus: Every 1 0yrs [facility] Start: 05-31-2029 Urine microalbumin profile DTaP,Tdap,Td Vaccine (2 - Td or Tdap) [facility] Start: 12-09-2024 Diabetes Screening Diabetes Screenin g [facility] Start: 09-07-2024 Screening for malign ant neoplasm of colon Colonoscopy [facility] Start: 09-04-2024 Adult BMI Screening Adult BMI Screen ing [facility] Start: 09-04-2024 Tobacco Screening Tobacco Screening [facility] Start: 08-29-2024 End: 08-29-2024 Patient encounter procedure 08/29/2024 1:50 PM EDT Office Visit [facility] [address] [place] [phone] Xena Marrufo MD [address] [place] [address] [facility] Start: 07-04-2024 End: 07-04-2024 Patient encounter procedure 07/04/2024 9:00 AM EST Office Visit [facility] Ophthalmology [address] [place] [address] Christine Brown, OD [address] [place], [place] [id number] Return in about 6 weeks (around 07/04/2024) for 30 min dipolopia slot. Ophthalmology Comment on above: Return in about 6 we eks (around 07/04/2024) for 30 min dipolopia slot. Start: 04-13-2024 End: 04-13-2024 Patient encounter procedure 04/13/2024 10:30 AM EST Office Visit [facility] [address] [place] [address] Vandana Chen DO [address] [place] [address] Arrived [facility] Comment on above: Arrived Start: 03-12-2024 End: 03-12-2024 Patient encounter procedure 03/12/2024 8:15 AM EDT Office Visit [facility] [address] [place] [id number] Gretchen Jensen, SERVICES EXECUTIVE [address] [place] [address] [facility] Start: 03-09-2024 End: 03-09-2024 ambulatory 03/09/2024 9:00 AM EDT Treatment [facility] [address] [place] [address] Ruby Asencio, OT [address] [place] [address] [facility] Start: 03-02-2024 End: 03-02-2024 ambulatory 03/02/2024 9:00 AM EDT Treatment [facility] [address] [place] [address] Ruby Asencio, OT [address] [place] [address] [facility] Start: 02-24-2024 End: 02-24-2024 ambulatory 02/24/2024 9:00 AM EDT Treatment [facility] [address] [place] [address] Ruby Asencio, OT [address] [place] [address] [facility] Start: 02-10-2024 End: 02-10-2024 ambulatory [facility] Comment on above: Closed fracture of d istal end of right radius with routine healing, unspecified fracture morphology, subsequent encounter; Closed nondisplaced fracture of styloid process of right ulna with routine healing Start: 02-05-2024 Covid-19 Vaccine ( season) Covid-19 Vaccine ( season) [facility] Start: 02-05-2024 Influenza vaccination [facility] Start: 01-30-2024 End: 01-30-2024 Patient encounter procedure 01/30/2024 1:30 PM EDT Office Visit [facility] [address] [place] [id number] Gretchen Jensen NP [address] [place] [address] Closed fracture of distal end of right radius with routine healing, unspecified fracture morphology, subsequent encounter (Primary Dx); Closed nondisplaced fracture of styloid process of right ulna with routine healing [facility] Comment on above: Closed fracture of d istal end of right radius with routine healing, unspecified fracture morphology, subsequent encounter (Primary Dx); Closed nondisplaced fracture of styloid process of right ulna with routine healing Start: 10-29-2022 Screening for malign ant neoplasm of breast Breast cancer screen [facility] Start: 09-07-2022 Screening for malign ant neoplasm of colon [facility] Start: 05-03-2022 End: 04-26-2023 Penelope [Moles/volume] in Serum or Plasma Penelope Level Lab Routine Long-term use of high-risk medication Bipolar affective disorder, manic, severe, with psychotic behavior (HCC) Expected: 05/03/2022, Expires: 04/26/2023 [facility] Work Phone: Comment on above: Expected: 05/03/2022 , Expires: 04/26/2023 Start: 04-26-2022 End: 04-26-2022 Telemedicine consultation with patient 04/26/2022 Telemedicine Telephone Psychiatry Juan Adames MD [address] [facility] [address] [place] [address] [facility] Start: 03-23-2022 [facility] Start: 03-12-2022 Hospital admission [facility] Start: 03-12-2022 Vitamin D, 25-hydrox y measurement [facility] Start: 03-12-2022 [facility] Start: 02-12-2022 End: 02-12-2022 Telemedicine consultation with patient 02/12/2022 Telemedicine Telephone Psychiatry Juan Adames MD [address] [place] [address] [facility] Start: 02-04-2022 Influenza vaccination Sequenti al Influenza Vaccine (#1) [facility] Start: 01-15-2022 End: 01-15-2022 Patient encounter procedure 01/15/2022 Office Visit Psychiatry Juan Adames MD [address] [place] [address] [facility] Start: 01-05-2022 COVID-19 Vaccine (5 - Booster for Pfizer series) COVID-19 Vaccine (5 - Booster for Pfizer series) [facility] Start: 12-08-2021 End: 12-08-2021 Patient encounter procedure 12/08/2021 Office Visit Juan Chavez MD [address] [place] [address] [facility] Start: 11-11-2021 Screening for malign ant neoplasm of breast Mammogram [facility] Start: 10-29-2021 Screening for malign ant neoplasm of breast [facility] Start: 09-26-2021 History and physical examination, annual for health maintenance Wellness Visit [facility] Start: 09-14-2021 End: 09-14-2021 Patient encounter procedure 09/14/2021 Office Visit Juan Chavez MD [address] [place] [address] [facility] Start: 09-07-2021 COVID-19 Vaccine (4 - Booster for Pfizer series) COVID-19 Vaccine (4 - Booster for Pfizer series) [facility] Start: 03-11-2021 COVID-19 Vaccine (3 - Booster for Pfizer series) COVID-19 Vaccine (3 - Booster for Pfizer series) [facility] Start: 02-13-2021 End: 02-13-2021 Patient encounter procedure 02/13/2021 Office Visit Juan Chavez MD [address] [place] [address] [facility] Start: 02-09-2021 COVID-19 Vaccine (3 - Booster for Pfizer series) COVID-19 Vaccine (3 - Booster for Pfizer series) [facility] Start: 02-04-2021 Influenza vaccination Sequenti al Influenza Vaccine (#1) [facility] Start: 11-24-2020 End: 11-24-2020 Office Visit 11/24/2020 Office Visit Juan Chavez, MD [address] [place] [address] [phone] [facility] Start: 09-22-2020 End: 09-22-2020 Penelope [Moles/Vol] Penelope Level Lab Routine Bipolar 1 disorder, manic, mild (HCC) KALEN (Generalized Anxiety Disorder) Long-term use of high-risk medication Expected: 09/22/2020, Expires: 09/22/2020 [facility] Comment on above: Expected: 09/22/2020 , Expires: 09/22/2020 Start: 09-22-2020 End: 09-22-2020 Urinalysis Urinalysis Lab Routine Bipolar 1 disorder, manic, mild (HCC) KALEN (Generalized Anxiety Disorder) Long-term use of high-risk medication Expected: 09/22/2020, Expires: 09/22/2020 [facility] Comment on above: Expected: 09/22/2020 , Expires: 09/22/2020 Start: 09-08-2020 COVID-19 Vaccine (2 - Pfizer 2-dose series) COVID-19 Vaccine (2 - Pfizer 2-dose series) [facility] Start: 08-22-2020 End: 08-22-2020 Office Visit 08/22/2020 Office Visit Psychiatry Juan Adames MD [address] [place] [address] [phone] [facility] Start: 02-05-2020 Influenza vaccinatio n given Sequential Influenza Vaccine (#1) [facility] Start: 2019 Respiratory Syncytia l Virus (RSV) or age 60 yrs+ (1 - 1-dose 60+ series) Respiratory Syncytial Virus (RSV) or age 60 yrs+ (1 - 1-dose 60+ series) [facility] Start: 08-23-2015 Administration of he rpes zoster vaccine Zoster Vaccines (2 of 3) [facility] Start: 08-23-2015 Shingrix Vaccine (2 of 3) Shingrix Vaccine (2 of 3) [facility] Start: 11-03-2009 Administration of he rpes zoster vaccine Zoster Vaccines (1 of 2) [facility] Start: 11-03-2009 Pneumococcal Vaccine : 50+ (1 of 1 - PCV) Pneumococcal Vaccine: 50+ (1 of 1 - PCV) [facility] Start: 11-03-2009 Screening for malign ant neoplasm of colon [facility] Start: 11-03-2004 Lipid panel Lipid Screening [facility] Start: 11-03-2004 Screening for malign ant neoplasm of colon [facility] Start: 1999 Lipid panel Lipids [facility] Start: 11-03-1989 Screening for malign ant neoplasm of cervix [facility] Start: 11-03-1980 Screening for malign ant neoplasm of cervix [facility] Start: 11-03-1977 Adult BMI Follow Up Plan Adult BMI Follow Up Plan [facility] Start: 11-03-1977 Anxiety Screening Anxiety Screening [facility] Start: 11-03-1977 Depression Screening Depression Scre ening [facility] Start: 11-03-1977 Hepatitis C antibody , confirmatory test Hepatitis C Screening [facility] Start: 11-03-1977 Hepatitis C screening [facility] Start: 11-03-1977 HIV screening HIV Screening [facility] Start: 11-03-1974 HIV screening [facility] Start: 1971 Adolescent depressio n screening assessment [facility] Start: 1971 Depression Monitoring Depression Mon itoring [facility] Start: 11-03-1969 Albumin DL <= 20 mg/ L (U) [Mass/Vol] Urine Microalbumin [facility] Start: 11-03-1969 Microalbumin measurement, urine, quantitative Urine Microalbumin [facility] Start: 11-03-1969 Urine screening for protein Urine Microalbumin [facility] Start: 11-03-1965 Pneumococcal Vaccine : Ped or At-Risk (1 - PCV) Pneumococcal Vaccine: Ped or At-Risk (1 - PCV) [facility] Start: 11-03-1965 Pneumococcal Vaccine : Ped or At-Risk (1 of 4 - PCV13) Pneumococcal Vaccine: Ped or At-Risk (1 of 4 - PCV13) [facility] Start: 11-03-1962 History and physical examination, annual for health maintenance Wellness Visit [facility] Start: 1959 Screening for malign ant neoplasm of cervix Pap Smear [facility] Start: 1959 Screening for malign ant neoplasm of colon [facility] Start: 1959 Screening mammography Mammogram [facility] Start: 1959 Tetanus vaccination Tetanus: Every 1 0yrs [facility] Bacteria identified in Urine by Culture [facility] Calculated LDL cholesterol level [facility] Work Phone: Cholesterol [Mass/volume] in Serum or Plasma [facility] Work Phone: Cholesterol in HDL [Mass/volume] in Serum or Plasma [facility] Work Phone: Cholesterol.total/Ch oles terol in HDL [Mass Ratio] in Serum or Plasma [facility] Work Phone: End: 08-22-2021 Comprehensive metabolic 2000 panel Comprehensive Metabolic Panel Lab Routine Bipolar 1 disorder, manic, mild (HCC) KALEN (Generalized Anxiety Disorder) Long-term use of high-risk medication 1 Occurrences starting 08/22/2020 until 08/22/2021 [facility] Comment on above: 1 Occurrences starti ng 08/22/2020 until 08/22/2021 Patient Education Schizophrenia (DC) [facility] DC Instructions [facility] Work Phone: Patient referral [facility] Work Phone: Renal function 1999 panel - Serum or Plasma [facility] Renal function 1999 panel - Serum or Plasma [facility] Thyrotropin [Units/volume] in Serum or Plasma [facility] Work Phone: Triglyceride [Mass/volume] in Serum or Plasma [facility] Work Phone: End: 08-22-2021 TSH Qn TSH Lab Routine Bipolar 1 disorder, manic, mild (HCC) KALEN (Generalized Anxiety Disorder) Long-term use of high-risk medication 1 Occurrences starting 08/22/2020 until 08/22/2021 [facility] Comment on above: 1 Occurrences starti ng 08/22/2020 until 08/22/2021 Vitamin D, 25-hydrox y measurement [facility] Work Phone: VLDL cholesterol measurement [facility] Work Phone: [facility] Immunizations Immunization Date Immunization Notes Care Provider Jn matt 04-26-2023 influenza virus vaccine, unspecified formulation Radha Penaloza PHYSICIAN'S AIDE-FLATBED OWNER OPERATOR Work Phone: [facility] 05-31-2019 tetanus toxoid, redu terrell diphtheria toxoid, and acellular pertussis vaccine, adsorbed Radha Penaloza PHYSICIAN'S AIDE-FLATBED OWNER OPERATOR Work Phone: [facility] 05-28-2019 Influenza, injectabl e, Madin Isabel Canine Kidney, preservative free, quadrivalent Radha Penaloza PHYSICIAN'S AIDE-FLATBED OWNER OPERATOR Work Phone: [facility] 05-28-2019 influenza virus vaccine, unspecified formulation Christine Brown OD Work Phone: [facility] 03-24-2018 influenza, injectabl e, quadrivalent, preservative free Radha Penaloza PHYSICIAN'S AIDE-FLATBED OWNER OPERATOR Work Phone: [facility] 06-28-2015 zoster vaccine, live Radha Penaloza PHYSICIAN'S AIDE-FLATBED OWNER OPERATOR Work Phone: [facility] 02-17-2011 influenza, seasonal, injectable Radha Penaloza PHYSICIAN'S AIDE-FLATBED OWNER OPERATOR Work Phone: [facility] 04-23-2009 novel [id number]-[id number], preservative-free, injectable Radha Penaloza PHYSICIAN'S AIDE-FLATBED OWNER OPERATOR Work Phone: [facility] Payers Date Payer Category Payer Private Health Insurance [id number] 2022 Unknown [id number]. [id number] 2021 Self-pay [id number] 2017 Unknown [id number] 2014 Medicare [id number] 1959 Unknown [id number] 2.16.840.1.323422.3.579. 2.903 1959 Unknown [id number] 2.16.840.1.635155.3.579. 2.903 1959 Unknown [id number] 2.16.840.1.744868.3.579. 2.903 1959 Unknown [id number] 2.16.840.1.829288.3.579. 2.903 1959 Unknown [id number] 2.16.840.1.997635.3.579. 2.90 1959 Unknown [id number] 2.16.840.1.167516.3.579. 2.90 1959 Unknown [id number] 2.16.840.1.676299.3.579. 2.90 1959 Unknown [id number] 2.16.840.1.085345.3.579. 2. 1959 Unknown [id number] 2.16.840.1.801113.3.579. 2.593 1959 Unknown [id number] 2.16.840.1.817235.3.579. 2.593 1959 Unknown [id number] 2.16.840.1.192850.3.579. 2.593 1959 Unknown [id number] 2.16.840.1.309470.3.579. 2.593 1959 Unknown [id number] 2.16.840.1.402561.3.579. 2.593 1959 Unknown [id number] 2.16.840.1.577626.3.579. 2.593 1959 Unknown [id number] 2.16.840.1.546515.3.579. 2.593 1959 Unknown [id number] 2.16.840.1.438078.3.579. 2.177 1959 Unknown [id number] 2.16.840.1.988418.3.579. 2.1286 1959 Unknown [id number] 2.16.840.1.087671.3.579. 2.1285 1959 Unknown [id number] 2.16.840.1.061490.3.579. 2.1258 1959 Unknown [id number] 2.16.840.1.351001.3.579. 2.1258 1959 Unknown [id number] 2.16.840.1.409220.3.579. 2.1258 1959 Unknown [id number] 2.16.840.1.157294.3.579. 2.1258 1959 Unknown [id number] 2.16.840.1.390825.3.579. 2.1258 1959 Unknown [id number] 2.16.840.1.881247.3.579. 2.1258 1959 Unknown [id number] 2.16.840.1.384870.3.579. 2.1258 1959 Unknown [id number] 2.16.840.1.751588.3.579. 2.1258 1959 Unknown [id number] 2.16.840.1.005086.3.579. 2.1258 1959 Unknown [id number] 2.16.840.1.665700.3.579. 2.1258 1959 Unknown [id number] 2.16.840.1.143196.3.579. 2.1258 1959 Unknown [id number] 2.16.840.1.423073.3.579. 2.1258 1959 Unknown [id number] 2.16.840.1.074844.19 Medicare [id number] 2.16.840.1.365158.19 Unknown [facility] [employer] [id number] Effective for all dates [phone] [address] [address] [place] [address] [id number] 1.2.840.895258.1.13.385. 2.7.3.521311.315 Unknown [id number] 2.0.1.522024.3.579. 2.531 Unknown [id number] 2.840.1.434437.3.579. 2.531 Unknown [id number] 840.1.490318.19 Social History Date Type Detail Facility Tobacco smoking stat [facility] Unknown if ever smoked [facility] Start: 1960 Sex Assigned At Not on file [facility] Start: 08-22-2020 End: 09-05-2023 Tobacco smoking status CAIS Never smoker [facility] Start: 08-22-2020 End: 09-05-2023 Tobacco use and exposure Never used [facility] Start: 08-22-2020 End: 07-04-2024 Alcohol intake Ex-drinker (finding) [facility] Start: 09-04-2021 End: 06-21-2022 Exposure to SARS-CoV-2 (event) Not sure [facility] Start: 07-17-2020 End: 08-22-2020 Cigarette pack-years [facility] Start: 12-17-2018 End: 07-17-2020 Sex Assigned At [facility] Start: 1960 Sex Assigned At Female [facility] Start: 10-26-2017 End: 09-05-2023 Alcohol intake Current non-drinker of alcohol (finding) [facility] National Score (1-10 0), lower number is lower risk 80 [facility] Start: 01-11-2019 Alcohol Comment [address] [facility] Start: 10-02-2019 Gender identity Identifies as female gender (finding) [facility] Start: 10-02-2019 Sexual orientation Heterosexual (finding) [facility] Medical Equipment Procedure Code Equipment Code Equipment Origin al Text Equipment Identifier Dates Sut Anch Pushlk Bcmps 3.5x19.5 Ster Disp 5ea/Po Ln Required - [id number] - [id number] , [id number] FDA Start: 07-27-2017 Suture Ransom Sw ivel - [id number] - [id number], [id number] FDA Start: 07-27-2017 Fiberlink - Ness 7235 - [id number] Start: 07-27-2017 Plate Bn [id number] m 1/3 Tblr 7 Hl Colr Lcp Ss .7mm 12mm Ns - Sna - [id number] Start: 12-09-2021 Screw Bn 12mm 3. [address] Lp Hd Sm Hex Sckt Jerrod Ss 2.5mm Rpl Special Item [id number] - Sna - [id number] Start: 12-09-2021 Screw Bn 14mm 3. [address]mm [address] Lp Sm Hex Jerrod Ss Ns Rpl Special Item [id number] - Sna - [id number] Start: 12-09-2021 Screw Bn 26mm 3. [address] Lp Sm Hex Jerrod Ss Ns Rpl [id number] - Sna - [id number] Start: 12-09-2021 Screw Bn 16mm 4m m 6mm Sm Hex Sckt Canc Ss 2.5mm Ft Ns Sm - Sna - [id number] Start: 12-09-2021 Goals Date Patient Goal Desired Activity /State Personal health goal Comment on above: Formatting of this n ote might be different from the original. Evaluation of progress towards goal: Patient plans to discharge home with self care and with family assistance Functional Status Date Assessment Result Facility 03-23-2022 Functional status Patient at Baseline [facility] Work Phone: Mental Status Date Assessment Result Facility 03-23-2022 Cognitive function Cognitive Sta tus Patient at Baseline [facility] Work Phone: Clinical Notes 01-27-2021 to 07-04-2024 Christine Brown, OD - 07/04/2024 9:38 AM Christine Saenz, OD - 05/23/2024 11:34 AM ESTSylvester Josepher, DO - 04/13/2024 10:30 AM ESTDischarge InstructionsAttachments Note Date & Type Note Facility 07-04-2024 Note HNO ID: [id number] Author: CHRISTINE BROWN OD Service: ? Author Type: ASSOCIATE PROFESSOR OF ANTHROPOLOGY Type: Progress Notes Filed: 07/04/2024 09:40 Note Text: Nola is a pleasant 63 year old female with the following conditions: 1. Downbeat nystagmus 2. Hypertropia of right eye Workup and diagnosed by Dr. Alcantara in 2019, likely due to Penelope medication due to normal MRI Recent dilated fundus exam by Dr. Chen Reviewed records Stable normal dilated fundus exam Patient goal is to optimize vision Uses over the counter readers for near, occasional diplopia, will close one eye Doing well with distance specs! No diplopia with glasses since picking them up, occurred a few times when sc but resolved once putting them on! Struggling in zoroastrian with separate reading vs distance prism. Tried bifocals in past and did not adjust well. Can try lined bifocals in future as needed Continue with Dr. Chen for dilated fundus exams, me as needed for specs Pleasure to take care of her today. Christine Brown, BONNIE [facility] 07-04-2024 History of Presen t illness Narrative Nola is a pleasant 63 year old female with the following conditions: 1. Downbeat nystagmus 2. Hypertropia of right eye Workup and diagnosed by Dr. Alcantara in 2019, likely due to Penelope medication due to normal MRI Recent dilated fundus exam by Dr. Chen Reviewed records Stable normal dilated fundus exam Patient goal is to optimize vision Uses over the counter readers for near, occasional diplopia, will close one eye Doing well with distance specs! No diplopia with glasses since picking them up, occurred a few times when sc but resolved once putting them on! Struggling in zoroastrian with separate reading vs distance prism. Tried bifocals in past and did not adjust well. Can try lined bifocals in future as needed Continue with Dr. Chen for dilated fundus exams, me as needed for specs Pleasure to take care of her today. Christine Brown, OD documented in this encounter [facility] 05-23-2024 Note HNO ID: [id number] Author: CHRISTINE BROWN OD Service: ? Author Type: ASSOCIATE PROFESSOR OF ANTHROPOLOGY Type: Progress Notes Filed: 05/23/2024 11:37 Note Text: Nola is a pleasant 63 year old female ; accompanied and history given by ; with the following conditions: 1. Downbeat nystagmus 2. Hypertropia of right eye Workup and diagnosed by Dr. Alcantara in 2019, likely due to Penelope medication due to normal MRI Recent dilated fundus exam by Dr. Chen Reviewed records Stable normal dilated fundus exam Patient goal is to optimize vision Uses over the counter readers for near, occasional diplopia, will close one eye Low prescription distance Demo'd in trial frame, patient does NOT have diplopia with trial frame at distance but does have it without prescription at distance Patient is happy with current over the counter readers for now, has had difficulty in bifocals in the past Discussed with patient Distance specs may not improve clarity (subjective visual acuity stable sc vs cc) but may help wit diplopia Given prescription distance specs no prism, f/u in 6 weeks for strab check Can consider prism as needed Pleasure to take care of her today. Christine Brown OD [facility] 05-23-2024 History of Presen t illness Narrative Nola is a pleasant 63 year old female ; accompanied and history given by ; with the following conditions: 1. Downbeat nystagmus 2. Hypertropia of right eye Workup and diagnosed by Dr. Alcantara in 2019, likely due to Penelope medication due to normal MRI Recent dilated fundus exam by Dr. Chen Reviewed records Stable normal dilated fundus exam Patient goal is to optimize vision Uses over the counter readers for near, occasional diplopia, will close one eye Low prescription distance Demo'd in trial frame, patient does NOT have diplopia with trial frame at distance but does have it without prescription at distance Patient is happy with current over the counter readers for now, has had difficulty in bifocals in the past Discussed with patient Distance specs may not improve clarity (subjective visual acuity stable sc vs cc) but may help wit diplopia Given prescription distance specs no prism, f/u in 6 weeks for strab check Can consider prism as needed Pleasure to take care of her today. Christine Brown, BONNIE documented in this encounter [facility] 05-23-2024 Instructions Christine Brown, BONNIE - 05/23/2024 10:51 AM EST Line guide: [email or web address] ing/[email or web address]/ref=sr_[email or web address]_32?d ib=obL5LatfVLG3.nDTZOE--vBgx7rZ Rha845BA1jtfvRPEfvouVEvVxPEL9bQ x60HUcxRZJvKDIIF0LK4hFGhg69j_FN zxWgbqX_d7kVRgl5RKUfR-oUZn_OPwd jAorXiHT_jULuL8n9Npu3FdTglL6iVW vn0R0pOqDpncmEK6hwVLaDu114MPe9Y _V1cD8mS2WmAPJR08dDx9hC6bFY1rIw Fu-f7khDILFaxIaSIKCISDbXbxaI-hN NIyAEhiVEs4a3rFqR_05WLp-PO1gQNe _xql2yNDKVWtp36NBbiNx5w3Rb5Z11O yMNMMmhu9T44r92QtE2mEQYeIcyjASp WASakTAnwV5STX0E7Ct_tcqWgHxNBqM 9Lms2XNwe0CnkIiuQS8n-zZ-hkYvW7E w6QoWr-L7q2pxb8qKbcl_g32fOqc9S9 Q3SudLuf-GWHD-596hhPNgoKUb-oYo. OUoYuIdLiZ8pcs0-BinFflznnYyk2M8 Rn7rShoSyQ_o&dib_tag=se&keyword s=Line+Guide&snh=[id number]&sr= 832 documented in this encounter [facility] 04-13-2024 History of Presen t illness Narrative Images from the original note were not included. Assessment/Plan Diagnoses and all orders for this visit: Downbeat nystagmus - I shared with Mrs. Waller and her my belief that her nystagmus was secondary to Penelope usage. Although her plasma levels are normal per them, this can still show a cerebellar affect causing this condition. I expressed that she has adapted to this very well with altering position or simply closing an eye. I have offered referral to [facility] for possible greater identification of the condition and this way to possibly link up with other specialties that may be able to alter her usage of this medication. She wished to proceed with this. Diplopia - Mrs. Waller shows a vertical diplopia with red screen that varied from a 3PD base-up prism (BU) right eye (OD) to 3PD base-down prism (BD) right eye (OD) for only momentary correction. I expressed that there would be difficulty managing this with this level of variabilty. Age-related nuclear cataract of both eyes - Cataract, OU: Observe for now without intervention. The patient was advised to contact us if any change or worsening of vision Dry eyes - Dry Eyes OU -- Environmental changes to minimize dryness and exposure and the use of artificial tears were recommended. Time spent with pt greater than 60minutes documented in this encounter [facility] 02-10-2024 History of Presen t illness Narrative Occupational Therapy Occupational Therapy Evaluation Visit Patient Name: Nola Waller Today's Date: 02/10/2024 Linked Episodes Type: Episode: Status: Noted: Resolved: Last update: Updated by: Occupational Therapy R wrist fx Active 01/30/2024 02/10/2024 9:46 AM Ruby Asencio OT Comments:Episode created from referral [id number] Visit number: 1 Subjective Interim History: 63 y/o female presents s/p routine healing of closed distal radius fracture following a fall on 10/08/2023. Pt denies all pain and range of motion issues at this time. States I have been swimming, doing yoga, and taking cardio drumming with no issues . Here for home exercise program. Pain: No pain reported in wrist/forearm. Imaging: January 29 and 2023 x-rays AP and lateral of the right wrist demonstrate a fracture of the distal radius. Which is healed with reversal volar tilt. There are no new fractures identified. Impression: Healed distal radius fracture right wrist Prior Level of Function: I with all self-care and functional mobility tasks. Precautions: none Objective PRWHE Pain Score: 0/50 PRWHE Functional Score: 4/100 ( only difficulty noted with total weight bearing through hand) . Hand/Wrist Musculoskeletal Exam Inspection Left Erythema: none Ecchymosis: none Edema: none Deformity: mild Palpation Left Left wrist palpation is normal. Range of Motion Left Wrist Left wrist range of motion is normal. Strength Left Wrist Extension: 4+/5. Flexion: 4+/5. Radial deviation: 4+/5. Ulnar deviation: 4+/5. Pronation: 4+/5. Supination: 4+/5. Strength additional comments: R air carrier operations inspector strength: 35# LP: 12# L air carrier operations inspector strength: 45# LP: 9# Neurovascular Left Left neurovascular exam is normal. Special Tests Left Left special tests are normal. Treatment: Education: HEP education with demonstration, Educated on Eval Findings and POC Manual Therapy: Passive ROM, Joint mobilization, Soft Tissue Mobilization, Myofascial Release, Muscle Energy Technique, Neural Mobilization, Myofascial Cupping, Dry Needling, IASTM, and Scar mobilization Therapeutic Exercise: Strength, Endurance, Flexibility, ROM, and HEP Therapeutic Activity: Exercises to improve dynamic activities, functional tasks, functional mobility to return to prior activity level Neuromuscular re-education: Muscle Facilitation and Dynamic Stability Modalities: Heat, Ice, Electrical Stimulation, Ultrasound, Iontophoresis, and Fluidotherapy Today: Fluido x10 for supervised AROM under heat. STM/DTM along the wrist/ forearm with good toleration. HEP established for wrist stretches/ air carrier operations inspector strengthening/ wrist strengthening. Written handout provided along with demonstration of each exercise. Pt verbalized understanding. No further concerns voiced. Assessment/Plan Short Term Goals: Pt will be independent with home exercise program for light strengthening and ROM at discharge. Pt will benefit from skilled 0T to address the above impairments for 1x/week for 1 week. Patient and spouse in agreement. I hereby deem this POC medically necessary. Please sign below. Date: documented in this encounter [facility] 01-30-2024 History of Presen t illness Narrative Subjective Patient ID: Nola Waller is a 63 y.o. female. RT Wrist Fx. DOI 10/08/23. Only wears wrist immobilizer for cardio drumming, and states she thinks it would be fine if she did not wear it. 3.5 months s/p tripped on a lip on concrete and fell landing on a cement step on the RT arm (DOI 10/08/23). Pt c/o right arm, wrist, and hand pain. Notes she only gets pain if she does something on accident that she shouldn't do/certain movements. She gets pain dorsum of wrist, on the radial aspect. Denies pain at rest. Pain at worst 3/10 a few weeks ago but since the pain has stopped. Denies N/T. Admits swelling in fingers, this has resolved. Denies pain meds. Denies ice, heat, or creams. Here with Marv [place]: Kristie Potts/ER/XR 10/08/23, sugar tong splint, percocet, ibu, ice, XR NOMS 11/07/23, XR NOM[facility] 11/30/23, XR [facility]OM[facility] 12/28/23, XR [facility] 01/30/24. Objective Ortho Exam Hand/Wrist Musculoskeletal Exam Inspection Inspection additional comments: nv intact, no pain to palpation, trace swelling, near full pronation and supination, near full extension, marked stiffness with flexion Neurovascular Right Radial pulse: normal and 2+ Capillary refill: <3 sec and brisk XR wrist 1 or 2 views right Imaging Result: January 29 and 2023 x-rays AP and lateral of the right wrist demonstrate a fracture of the distal radius. Which is healed with reversal volar tilt. There are no new fractures identified. Impression: Healed distal radius fracture right wrist Khang Valentin D.O. Assessment/Plan Encounter Diagnoses: ICD-10-CM 1. Closed fracture of distal end of right radius with routine healing, unspecified fracture morphology, subsequent encounter S52.501D XR wrist 1 or 2 views right Ambulatory referral to Occupational Therapy 2. Closed nondisplaced fracture of styloid process of right ulna with routine healing S52.614D Ambulatory referral to Occupational Therapy Will send her to O.T. in [place], f/U in 6-8 weeks, activities as tolerated documented in this encounter [facility] 10-08-2023 [facility] Carrie Nair APRN - CNP - 10/08/2023 7:34 PM EDT Tylenol or ibuprofen as directed dcos-sfq-kbdhmdw for mild to moderate pain. Percocet pain medication for severe pain no drinking alcohol or driving if taking this medication, this medication can be habit-forming and cause constipation if you become constipated please use jjzt-mmv-hgpfhcl stool softener with stimulant; remember this medication also contains Tylenol/acetaminophen. Return to the ER: Fevers, atypical headaches, weakness or mentation changes, vomiting, increased or worsening pain in the right arm, pale right hand fingers, numbness; or any other concerning symptoms. The following attachments cannot be sent through Care Everywhere.Splint or Immobilizer Use (German)RICE: General Info (German)Wrist Fracture (German)documented in this encounter [facility] 09-22-2023 Miscellaneous Notes Patients called in saying patient is constipated. Informed patients that she can take 1 cap full of Miralax up to 3 times a day, needs to drink at least 64 oz of water and take a fiber supplement to get 30 grams of fiber a day. Informed patients to start slow on the fiber and increase as time goes on, but taking the miralax will help give relief now. Patients stated she only took 1 cap full of the miralax. Patients verbalized understanding. documented in this encounter [facility] 09-22-2023 Telephone encounter Note Patients called in saying patient is constipated. Informed patients that she can take 1 cap full of Miralax up to 3 times a day, needs to drink at least 64 oz of water and take a fiber supplement to get 30 grams of fiber a day. Informed patients to start slow on the fiber and increase as time goes on, but taking the miralax will help give relief now. Patients stated she only took 1 cap full of the miralax. Patients verbalized understanding. [facility] History of Presen t illness Narrative Images from the original note were not included. Chief Complaint: Constipation History of Present Illness Nola Waller is a 62 y.o. female who presents to the office for constipation. She has been constipated her whole life. She was previously taking a vitamin from an online doctor in [place] to promote regularity. She stopped taking this [...] Medical History: Diagnosis Date Anxiety Bipolar affective (CMS-HCC) Chronic constipation takes miralax and colace daily, keeps under control Chronic kidney disease stage 3, sees Dr. Zachary Pascual in [place] Dental disease caps Depression Pelvic mass Pneumonia 08/18/2019 admitted for overnight, took antibiotic and resolved Primary hypertension Rosacea Seasonal allergies Visual impairment glasses Past Surgical History: Procedure Laterality Date ARTHROSCOPY SHOULDER Right 07/27/2017 Performed by Steve Valentin DO at [facility] BREAST BIOPSY Left 2015 benign, needle bx. COLONOSCOPY every 5 years, approx 2016 for last COLONOSCOPY N/A 09/07/2021 Performed by Geraldo Ramirez DO at [facility] CYSTOSCOPY N/A 10/09/2019 Performed by Merritt Trinidad MD at [facility] DILATION AND CURETTAGE OF UTERUS x 2, in the remote past HYSTERECTOMY 2020 KNEE SURGERY years ago right, scope LAPAROSCOPIC HYSTERECTOMY / RSO / EXCISION PELVIC MASS N/A 10/09/2019 Performed by Merritt Trinidad MD at [facility] OOPHORECTOMY OPEN REDUCTION INTERNAL FIXATION ANKLE TRIMALLEOLAR Right 12/09/2021 [facility] by [facility] [facility] Allergies Allergen Reactions Stelazine [Trifluoperazine] muscle cramps [...] patient/family/caregiver Referring and communicating with other health critical care nurse specialist Chronic constipation [K59.09] MIRIAM GOLD [facility] General Surgery [place] This note was created with the assistance of a speech recognition program. While intending to generate a timely document that accurately reflects the content of the visit, no guarantee can be provided that every grammatical or spelling mistake has been or will be identified or corrected. Thank you for your understanding. MIRIAM Gold 09/05/23 1533 documented in this encounter [facility] 07-06-2023 Evaluation note Encounter Date Diagnosis Assessment [...] patient is sent home pleased, without concerns. [facility] Other 10-18-2023 Evaluation note* Encounter Date Diagnosis [...] her to avoid magnesium based laxatives Mar, Penelope use (ICD-10 - Z79.899) She has a [...] to continue to follow with Dr. Marrufo. [facility] Other 08-17-2023 Evaluation note* Encounter Date Diagnosis [...] ER or RTO. Symptoms have improved today [facility] Other 06-13-2023 Evaluation note* Encounter Date Diagnosis [...] her to avoid magnesium based laxatives Nov, Penelope use (ICD-10 - Z79.899) She has a [...] likely primary hyperparathyroidism. I referred her to patternmaker metal Dr. Marrufo. [facility] Other 01-18-2023 History of Present illness Narrative* [...] plan was discussed with patient. Impression/ Plan: [place] I: Bipolar disorder, type I, most recent episode mixed, severe with psychosis , generalized anxiety disorder [place] II: Deferred [place] III: CKD stage III [place] IV: other psychosocial or environmental problems [place] V: 51-60 moderate symptoms Recommendations: Treatment Plan: [...] Testing: None Juan Adames documented in this [id number] History of Present illness Narrative* Juan Adames MD - 05/10/2022 8:23 PM EST Telephone Visit Via Phone Call [facility] [phone] Telephone Visit [facility] 04/26/2022 Juan Adames MD Provider Location: [facility]. Patient Location Information Systems Specialist: None Patient Location: Patient's Home Patient: Nola [...] there are inherent diagnostic limitations compared to hiyl-fs-cqjo evaluations. We elected toproceed with the telephone [...] She is tolerating the lithium well. Her venetian blind worker is on board with lithium as per [...] visit: Long-term use of high-risk medication - Penelope Level; Future Bipolar affective disorder, manic, severe, with psychotic behavior (HCC) - Penelope Level; Future Other orders - lithium (ESKALITH) [...] and Plan of Care. documented in this [id number] Evaluation note* Encounter Date Diagnosis Assessment Notes [...] will check her renal function again. May, Penelope use (ICD-10 - Z79.899) She has a [...] Calcium, Phos and Vit D are normal. [facility] Other 11-15-2022 History of Present illness Narrative* Juan Adames MD - 04/20/2022 11:32 AM EST BEHAVIORAL HEALTH PSYCHIATRIC PROGRESS NOTE 04/19/2022 Nola Waller, a 61 y.o. female, psychotropic medication management follow-up Patient is referred by Santa Augustin MD . Interval History: Patient is seen in office for psychotropic medication management follow-up and hospital follow-up. Patient was hospitalized at [facility] from 03/11 to 03/23/2022 for worsening mood [...] plan was discussed with patient. Impression/ Plan: [place] I: Bipolar disorder, type I, most recent episode manic with psychosis [place] II: Deferred [place] III: CKD stage III [place] IV: other psychosocial or environmental problems [place] V: 51-60 moderate symptoms Recommendations: Treatment Plan: [...] Testing: None Juan Adames documented in this [id number] Progress note Author Marco A Zaman [facility] March 22, 2022 3:02pm Note Date/Time March 22, 2022 3 :00pm [facility] [address] [place] [address] Psychiatry Progress Note Signed Patient: Nola Waller MR#: [id number] 1468 : 1960 Acct:[id number] Age/Sex: 61 / F Adm Date: 2 Loc: Room: [address] [place] [address] Type : ADM IN Attending Dr: Marco [...] compliance Risk benefits alternatives explained Documented By: Maroc A Zaman MD 03/22/22 1453 Signed By: <Electronically signed by Marco A Zaman MD> 03/22/22 6782 [facility] Work Phone: 1(407) 661-642510-16-2022 Progress note Author Horacio bethea [facility] March 21, 2022 9:54am Note Date/Time March 21, 2022 9 :52am [facility] [address] [place] [address] Psychiatry Progress Note Signed Patient: Nola Waller MR#: [id number] 1468 : 1960 Acct:[id number] Age/Sex: 61 / F Adm Date: 2 Loc: Room: [address] [place] [address] Type : ADM IN Attending Dr: Marco [...] explained Documented By: Horacio Kim MD 2 51 Signed By: <Electronically signed by Horacio Kim MD> 03/21/22 0954 [facility] Work Phone: 1(279) 873-333510-15-2022 Progress note Author Horacio bethea [facility] March 20, 2022 9:19am Note Date/Time March 20, 2022 9 :19am [facility] [address] [place] [address] Psychiatry Progress Note Signed Patient: Nola Waller MR#: [id number] 1468 : 1960 Acct:[id number] Age/Sex: 61 / F Adm Date: 2 Loc: Room: [address] [place] [address] Type : ADM IN Attending Dr: Marco [...] alternatives explained Documented By: Horacio Kim MD 917 Signed By: <Electronically signed by Horacio Kim MD> 03/20/22918 [facility] Work Phone: 1(488) 747-662310-14-2022 Progress note Author Horacio bethea [facility] March 19, 2022 9:03am Note Date/Time March 19, 2022 9 :03am [facility] [address] [place] [address] Psychiatry Progress Note Signed Patient: Nola Waller MR#: [id number] 1468 : 1960 Acct:[id number] Age/Sex: 61 / F Adm Date: 2 Loc: Room: [address] [place] [address] Type : ADM IN Attending Dr: Marco [...] signed by Horacio Kim MD> 03/19/22 0903 [facility] Work Phone: 1(823) 790-211110-13-2022 Progress note Author Horacio bethea [facility] March 18, 2022 8:44am Note Date/Time March 18, 2022 8 :44am [facility] [address] [place] [address] Psychiatry Progress Note Signed Patient: Nola Waller MR#: [id number] 1468 : 1960 Acct:[id number] Age/Sex: 61 / F Adm Date: 2 Loc: 1S Room: 2S1313-2 Type : ADM IN Attending Dr: Marco [...] signed by Horacio Kim MD> 03/18/22 0844 [facility] Work Phone: 1(764) 549-198110-12-2022 Hospital Discharge instructions Additional Instructions Invega Sustenna 234mg injection given 03/17/2022. Invega Sustenna 156mg booster injection given 03/22/2022. Invega Injection Due on 04/19/2022 You have completed your course of antibiotics Regular diet. No activity restrictions.[facility] Work Phone: 1(806) 395-634910-12-2022 Progress note Author Horacio bethea [facility] March 17, 2022 9:33am Note Date/Time March 17, 2022 9 :31am [facility] [address] [place] [address] Psychiatry Progress Note Signed Patient: Nola Waller MR#: [id number] 1468 : 1960 Acct:[id number] Age/Sex: 61 / F Adm Date: 2 Loc: Room: [address] [place] [address] Type : ADM IN Attending Dr: Marco [...] <Electronically signed by Horacio Kim MD> 03/17/[address] [facility] Work Phone: 1(132) 715-799710-11-2022 Progress note Author Horacio bethea [facility] March 16, 2022 9:48am Note Date/Time March 16, 2022 9 :47am [facility] [address] [place] [address] Psychiatry Progress Note Signed Patient: Nola Waller MR#: [id number] 1468 : 1960 Acct:[id number] Age/Sex: 61 / F Adm Date: 2 Loc: Room: [address] [place] [address] Type : ADM IN Attending Dr: Marco [...] explained Documented By: Horacio Kim MD 2 46 Signed By: <Electronically signed by Horacio Kim MD> 03/16/2248 [facility] Work Phone: 1(951) 582-401710-10-2022 Progress note Author Horacio bethea [facility] March 15, 2022 8:53am Note Date/Time March 15, 2022 8 :52am [facility] [address] [place] [address] Psychiatry Progress Note Signed Patient: Nola Waller MR#: [id number] 1468 : 1960 Acct:[id number] Age/Sex: 61 / F Adm Date: 2 Loc: Room: [address] [place] [address] Type : ADM IN Attending Dr: Marco [...] explained Documented By: Horacio Kim MD 2 08 Signed By: <Electronically signed by Horacio Kim MD> 03/15/22 0853 [facility] Work Phone: 1([phone]) 985-716210-09-2022 Progress note Author Marco A Austyn [facility] March 14, 2022 11:32am Note Date/Time March 14, 2022 11 :32am [facility] [address] [place] [address] Psychiatry Progress Note Signed Patient: Nola Waller MR#: [id number] 1468 : 1960 Acct:[id number] Age/Sex: 61 / F Adm Date: 2 Loc: Room: [address] [place] [address] Type : ADM IN Attending Dr: Marco [...] signed by Marco A Zaman MD> 03/14/221131 [facility] Work Phone: 1(472) 323-539210-08-2022 Progress note Author Marco A Zaman [facility] March 13, 2022 12:25pm Note Date/Time March 13, 2022 12 :25pm [facility] [address] [place], [place] [id number] Psychiatry Progress Note Signed Patient: Nola Waller MR#: [id number] 1468 : 1960 Acct:[id number] Age/Sex: 61 / F Adm Date: 2 Loc: 1S Room: [address] [place] [address] Type : ADM IN Attending Dr: Marco [...] <Electronically signed by Marco A Zaman MD> 03/13/221224 [facility] Work Phone: [phone] 108-154810-07-2022 History and physical note Author Marco A Zaman [facility] March 12, 2022 5:35pm Note Date/Time March 12, 2022 5: 29pm [facility] [address] [place] [address] Psychiatry H&P Signed Patient: Nola Wallre MR#: [id number] 1468 : 1960 Acct:[id number] Age/Sex: 61 / F Adm Date: 2 Loc: 1S Room: [address] [place] [address] Type: ADM IN Attending Dr: Marco A [...] does admit its time to work on [employer] . She is oriented to person and date. She believed she was at [facility] Patient is extremely tearful on exam. She [...] confirmed this with the medical student as ruthann. Clien presenting due to concern for psychosis. Upon assessment, patient is internally stimulated and talking to herself. She also exhibits delayed responsewhen questions asked. She admits to [facility]. Recent medication changes discussed. Client questions [...] Appearance Clear Urine pH 6.5 Ur Specific [place] 1.007 Urine Protein Negative Urine Glucose (UA) [...] signed by Marco A Zaman MD> 03/12/[address] [facility] Work Phone: [phone] 158-858510-07-2022 NoteBedside Glucose CommentOctober 2021 6:09amSee commentGlu2: Procedure ErrorPoint of Care testingThe University Of Toledo Medical CenterComment on above:Glu2: Procedure [id number] History of Present illness Narrative* Juan Adames MD - 02/12/2022 2:36 PM EDT Telephone Visit Via Phone Call [facility] [phone] Telephone Visit [facility] 02/12/2022 Juan Adames MD Provider Location: [facility] Patient Location Information Systems Specialist: None Patient Location: Patient's Home Patient: Nola [...] there are inherent diagnostic limitations compared to sqcb-ix-rqqo evaluations. We elected toproceed with the telephone [...] and Plan of Care. documented in this [id number] History of Present illness Narrative* Juan Adames [...] after discontinuation of lithium. documented in this [id number] History of Present illness Narrative* Juan Adames [...] reviewed: Data review needed, labs obtained from [place] Response to Medication: Adequate ASSESSMENT AND PLAN: [...] are completed Juan Adames documented in this [id number] Telephone encounter Note* Telephone Encounter - Yuni Negron CNP - 08/25/2021 1:49 PM EDT Prescription for Clonazepam 1mg at bedtime #30, 0RF written to continue medication written for patient by provider, Dr. Adames. [facility] Work Phone: [phone]) [phone] Miscellaneous Notes* Telephone Encounter - Yuni Negron [...] in another refill request. documented in this [id number] Telephone encounter Note* Telephone Encounter - Obdulia [...] I will put in another refill request. [id number] Telephone encounter Note* Telephone Encounter - Yuni Negron CNP - 08/24/2021 4:22 PM EDT Ms. Waller has 1 refill remaining for Clonazepam 1mg nightly according to [facility]. Asked staff to let her know. [facility] Work Phone: [phone]) [phone] Miscellaneous Notes* Telephone Encounter - Yuni Negron [...] her pharmacist. Thank you! documented in this [id number] Telephone encounter Note* Telephone Encounter - Yuni Negron CNP - 08/24/2021 8:24 AM EDT It appears that Ms. Waller has one refill remaining according to [facility] checked this morning. Please ask her to check with her pharmacist. Thank you! [id number] Evaluation note* Encounter Date Diagnosis Assessment Notes [...] possible. Follow-up with Dr. Valentin, call Tuesday for an appointment to be seen in follow-up [facility] [employer] Other 10-27-2021 Evaluation note* Encounter Date Diagnosis Assessment Notes Treatment Notes Treatment Clinical Notes Mar, Chronic kidney disease, stage 3b (ICD-10 - N18.32) She has a CKD likely due to the chronic interstitial nephritis due to the prolonged vitamin use. She has no evidence of hematuria and proteinuria on UA. Her renal ultrasound showed bilateral renal cortical atrophy and bilateral renal cysts. Mar, Penelope use (ICD-10 - Z79.899) She has a bipolar disorder and currently takes lithium. Continue follow-up with psychiatrist and get periodically lithium level checked to avoid lithium toxicity. Mar, Hypercalcemia (ICD-1 0 - E83.52) She has hypercalcemia likely due to the vitamin D. I have advised her to stop the vitamin D. I have ordered the PTH and vitamin D. 27 Oct, 2021 Hypermagnesemia (ICD-10 - E83.41) He has hypermagnesemia likely due to supplements. I have advised him to stop the multivitamin [facility] Other 10-04-2021 History of Present illness Narrative* [...] and motivation. She has been going to [employer] and working out. Patient denies any [...] reviewed: Data review needed, labs obtained from [place] Response to Medication: Adequate ASSESSMENT AND PLAN: [...] Testing: None Juan Adames documented in this [id number] History of Present illness Narrative* Heidi Tenorio LPN - 01/27/2021 1:09 PM EDT Called and left message with medical records at [facility] letting them know that Dr. Adames wants all of patients lab work as far back as 5 years ago faxed to our office. Let them know that most of her labs had been ordered by Dr. Adames anyhow. Left my direct line and our fax number. documented in this encounterOhioHealthDischarge summary Author Marco A Zaman [facility] March 23, 2022 2:41pm Note Date/Time March 23, 2022 2 :37pm [facility] [address] [place] [address] Discharge Summary Signed Patient: Nola Waller MR#: [id number] 1468 : 1960 Acct:[id number] Age/Sex: 61 / F Adm Date: 2 Loc: Room: [address] [place] [address]: Marco A Zaman MD Copies [...] does admit its time to work on [employer] .? She is oriented to person and date.? She believed she was at [facility] Patient is extremely tearful on exam.? She [...] diet. No activity restrictions. Instructions: Schizophrenia (DC), [facility] [place] Instructions Prescriptions: New oxcarbazepine [...] 03/25/22 9:30 am (Therapy with Shawn Carlos) [facility] Counseling Hotline [Outside] Documented By: Marco A Zaman MD 03/23/22 1435 Signed By: <Electronically signed by Marco A Zaman MD> 03/23/[address] [facility] Work Phone: Evaluation note* Diagnosis KALEN (generalized anxiety disorder) Generalized [...] Anxiety state, unspecified [facility] [employer] Other evaluation note* Diagnosis Bipolar 1 disorder, manic, moderate (HCC)- Primary Anxiety Anxiety state, unspecified [facility]* Diagnosis Onset Date Resolution Status Hallucinations acute UTI (urinary tract infection) [facility] Work Phone: evaluation note* Diagnosis Onset Date Resolution Status Hallucinations acute Schizophrenia acute UTI (urinary tract infection) [facility] Work Phone: Evaluation note* Diagnosis Bipolar affective disorder, manic, severe, with psychotic behavior (HCC)- Primary Bipolar I disorder, most recent episode (or current) manic, severe, specified as with psychotic behavior KALEN (generalized anxiety disorder) Generalized anxiety disorder documented [facility]* Diagnosis Long-term use of high-risk medication- Primary Bipolar affective disorder, manic, severe, with psychotic behavior (HCC) Bipolar I disorder, most recent episode (or current) manic, severe, specified as with psychotic behavior documented [facility]* Diagnosis Onset Date Resolution Status CKD (chronic kidney disease) stage 3, GFR 30-59 ml/min acute Hypercalcemia acute Hyperparathyroidism acute Penelope use [facility] Work Phone: evaluquncg note* Diagnosis Closed fracture of right wrist, initial encounter- Primary documented in this encounter [facility] note* Diagnosis Onset Date Resolution Status CKD (chronic kidney disease) stage 3, GFR 30-59 ml/min acute Hypercalcemia acute Hyperlipidemia acute Hyperparathyroidism acute Penelope use [facility] Work Phone: Evaluation note* Diagnosis Downbeat nystagmus- Primary Diplopia Age-related nuclear cataract of both eyes Dry eyes Unspecified tear film insufficiency documented in this encounter [facility] HealthcareEvaluation note* Diagnosis Closed fracture of distal end of right radius with routine healing, unspecified fracture morphology, subsequent encounter- Primary Closed nondisplaced fracture of styloid process of right ulna with routine healing documented in this encounter [facility] HealthcareEvaluation note* Diagnosis Closed fracture of distal end of right radius with routine healing, unspecified fracture morphology, subsequent encounter Closed nondisplaced fracture of styloid process of right ulna with routine healing [facility] Diagnosis Downbeat nystagmus- Primary Other forms of nystagmus Hypertropia of right eye [facility] Diagnosis Downbeat nystagmus- Primary Other forms of nystagmus Hypertropia of right eye documented [facility] this [facility]* Diagnosis Chronic constipation- Primary Unspecified constipation [facility] - [facility]orted* Type Description Date [...] D&C Hospitalization History SEE ABOVE Hospitalization History [facility] Other History general Narrative - Reported* Type [...] 09/2021 Hospitalization History SEE ABOVE Hospitalization History [facility] Other History general Narrative - Reported* Type [...] 09/2021 Hospitalization History SEE ABOVE Hospitalization History [facility] Other InstructionsNot on filedocumented in this encounter [facility] Attachments The following attachments cannot be sent through Care Everywhere. * Constipation in adults (German) [facility] (n[facility] Consultation (Routine) - Authorized Specialty Diagnoses / Procedures Referred By Bishop alatorre Referred To Contact Occupational Therapy / Physical Therapy Diagnoses Closed fracture of distal end of right radius with routine healing, unspecified fracture morphology, subsequent encounter Closed nondisplaced fracture of styloid process of right ulna with routine healing Procedures [place] OFFICE/OUTPATIENT NEW HIGH MDM 60 MINUTES Gretchen Jensen NP [address] [place] [address] Ruby Asencio, OT [address] [place] [address] Referral ID Status Reason Start Date Expiration Date Visits Requested Visits Authorized [id number] Authorized Consult and Treat 01/30/2024 07/28/2024 20 20 [facility] for visit Narrative* Consultation (Routine) - Closed Specialty Diagnoses / Procedures Referred By Bishop alatorre Referred To Contact Occupational Therapy / Physical Therapy Diagnoses Closed fracture of distal end of right radius with routine healing, unspecified fracture morphology, subsequent encounter Closed nondisplaced fracture of styloid process of right ulna with routine healing Procedures [place] OFFICE/OUTPATIENT NEW HIGH MDM 60 MINUTES Gretchen Jensen NP [address] [place] [address] Ruby Asencio, OT [address] [place] [address] Referral ID Status Reason Start Date Expiration Date V isits Requested Visits Authorized [id number] Closed Consult and Treat 01/30/2024 07/28/2024 20 20 [facility] Healthcare Summary Purpose Family History Relationship Condition Age at Onset Recorded Date/T sowmya brother Heart disease Unknown father Unknown Hypertension Unknown Diabetes mellitus Unknown Not Specified Unknown Malignant neoplasm Unknown sister Family history of mental disorder Unknown Relationship Condition Age at Onset Recorded Date/T sowmya brother Heart disease Unknown father Unknown Hypertension Unknown Diabetes mellitus Unknown mother Unknown Malignant neoplasm Unknown sister Family history of mental disorder Unknown Advance Directives Documents on File Type Date 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 Directives and Living Will Advance Directive Response Recorded Date/ Time Advance Directives No May 12, 2021 7:39am Latest Code Status on File Code Status Date Activated Date Inactivated Comments Full Code 10/26/2017 9:22 PM 11/22/2017 3:36 PM Date Activated Date Inactivated Comments 10/09/2019 3:04 PM 10/10/2019 4:18 PM Latest Code Status on File Code Status Date Activated Date Inactivated Comments Full Code 10/09/2019 3:04 PM 10/10/2019 4:18 PM Assessments Diagnosis KALEN (Generalized Anxiety Disorder)- Primary Generalized anxiety disorder Diagnosis Bipolar 1 disorder, manic, mild (HCC)- Primary KALEN (Generalized Anxiety Disorder) Generalized anxiety disorder Long-term use of high-risk medication History of Present Illness * Juan Adames MD - 08/22/2020 2:56 PM EDT Telephone Visit Via Phone Call [facility] [phone] Telephone Visit [facility] 08/22/2020 Juan Adames MD Provider Location: [facility] Patient Location Information Systems Specialist: None Patient Location: Patient's Home Patient: Nola [...] there are inherent diagnostic limitations compared to apkj-nl-wnld evaluations. We elected toproceed with the telephone visit telemedicine consultation. Spouse is present. Audio quality was fair. Patient was able to engage well HPI Patient is a 59-year-old white female who has been under my care for the last 8 years at myprevious work location in [facility]. Patient wants to continue her psychiatric management under my supervision at my new location with [facility]. Patient's working diagnosis is bipolar disorder [...] Reports fair energy and motivation. Patient goesto JEWISH [facility] for workouts regularly. Patient reports she has [...] 450 MG CR tablet Other Relevant Orders [facility] Comprehensive Metabolic Panel TSH Urinalysis KALEN (Generalized Anxiety Disorder) Relevant Medications clonazePAM (KLONOPIN) 1 MG tablet Other Relevant Orders [facility] Comprehensive Metabolic Panel TSH Urinalysis Other Visit Diagnoses Long-term use of high-risk medication Relevant Orders [facility] Comprehensive Metabolic Panel TSH Urinalysis Global [...] stage 3, GFR 30-59 ml/min Hypercalcemia Hyperparathyroidism Penelope use Chief Complaint RENAL 6 MONTH F/U Reason for Visit CKD (chronic kidney disease) stage 3, GFR 30-59 ml/min Hypercalcemia Hyperlipidemia Hyperparathyroidism Penelope use Additional Source Comments INFORMATION SOURCE (unrecogn ized section and content) DATE CREATED AUTHOR 11/22/2017 [facility] DATE CREATED AUTHOR AUTHOR'S KIKOIZ ATION 04/23/2020 [facility] DATE CREATED AUTHOR AUTHOR'S ORGANIZ ATION 03/28/[address] [facility] DATE CREATED AUTHOR AUTHOR'S ORGANIZ ATION 06/22/2022 [facility] DATE CREATED AUTHOR AUTHOR'S ORGANIZ ATION 08/06/2022 [facility] DATE CREATED AUTHOR AUTHOR'S ORGANIZ ATION 10/09/2023 [facility] DATE CREATED AUTHOR AUTHOR'S ORGANIZ ATION 10/16/2023 [facility] DATE CREATED AUTHOR AUTHOR'S ORGANIZ ATION 04/15/2024 [facility] DATE CREATED AUTHOR AUTHOR'S ORGANIZ ATION 07/06/2024 [facility] Reason for Visit (unrecogniz ed section and content) Reason Onset Date Comments Medication Refill 07/14/2020 Reason Comments New Patient/Bipolar/Anxiety Reason Comments Medication Management Reason Onset Date Comments Medication Refill 05/21/2021 Reason Onset Date Comments Medication Refill 08/21/2021 Reason Onset Date Comments Medication Refill 08/25/2021 Reason Comments Wrist Injury Arm Injury right Reason Comments Spots and/or Floaters Diplopia Nystagmus Reason Comments Follow-up Reason Comments Downbeat nystagmus Specialty Diagnoses / Procedures Referred By Bishop alatorre Referred To Contact Optometry / OPHTHALMOLOGY Diagnoses Downbeat nystagmus Nystagmus referred by Dr. Vandana Chen Procedures OFFICE/OUTPATIENT NEW MODERATE MDM 45 MINUTES Vandana Chilel, DO [address] [facility] [address] [place] [address] Christine Brown, OD [address] [place] [address] Referral ID Status Reason Start Date Expiration Date Visits Re quested Visits Authorized [id number] Closed 05/23/2024 06/05/2024 1 1 Specialty Diagnoses / Procedures Referred By Bishop alatorre Referred To Contact Optometry / OPHTHALMOLOGY Diagnoses Examination Return in about 6 weeks (around 07/04/2024) for 30 min dipolopia slot. Procedures OFFICE/OUTPATIENT ESTABLISHED MOD MDM 30 MIN EST Betty Rossien, OD [address] [place] [address] Christine Brown, OD [address] [place] [address] Referral ID Status Reason Start Date Expiration Date Visits Re quested Visits Authorized [id number] Closed 07/04/2024 06/05/2025 3 1 Reason Comments Constipation Chronic constipation , last colon 09/07/21 Care Teams (unrecognized sec tion and content) Team Status: Active Member Role Status Dates Santa Augustin MD Primary Care Provider Active Team Status: Active Member Role Status Dates Santa Augustin MD Primary Care Provider Active Start: February 01, 2024 Mi Boss NP-C Attending Provider Active Start: February 01, 2024 Team Status: Active Member Role Status Dates Santa Augustin MD Primary Care Provider Active Start: March 24, 2024 Zachary Pascual MD Attending Provider Active Start : March 24, 2024 Team Status: Inactive Member Role Status Dates Santa Augustin MD Primary Care Provider Active Start: April 03, 2024 End: April 03, 2024 Zachary Pascual MD Attending Provider Active Start : April 03, 2024 End: April 03, 2024 Derrick Operator Relationship Specialty Start Date End Date Santa Augustin MD [address] [place] [address] PCP - General Family Medicine 07/09/20 Derrick Operator Relationship Specialty Start Date End Date Santa Augustin MD [address] [place] [phone] PCP - General Family Medicine 07/09/20 Derrick Operator Relationship Specialty Start Date End Date Santa Augustin MD [address] [place], [place] [phone] PCP - General Family Medicine 07/09/20 Derrick Operator Relationship Specialty Start Date End Date Santa Augustin MD [address] [place] [phone] PCP - General Family Medicine 07/09/20 Derrick Operator Relationship Specialty Start Date End Date Santa Augustin MD [address] [place] [address], [place] [address] PCP - General Family Medicine 07/09/20 Derrick Operator Relationship Specialty Start Date End Date Santa Augustin MD [address] [place] [address], [place] [address] PCP - General Family Medicine 07/09/20 Derrick Operator Relationship Specialty Start Date End Date Santa Augustin MD [address] [place] [address], [place] [address] PCP - General Family Medicine 07/09/20 Team Status: Active Member Role Status Dates Santa Augustin MD Primary Care Provider Active Momo Hill DO Emergency Provider Active Marco A Zaman MD Admit Provider, Attending Provider Active Team Status: Inactive Member Role Status Dates Santa Augustin MD Primary Care Provider Active Momo Hill DO Emergency Provider Active Marco A Zaman MD Admit Provider, Attending Provider Active Derrick Operator Relationship Specialty Start Date End Date Santa Augustin MD [address] [place] [address], [place] [address] PCP - General Family Medicine 07/09/20 Derrick Operator Relationship Specialty Start Date End Date Santa Augustin MD [address] [place] [address], [place] [address] PCP - General Family Medicine 07/09/20 Derrick Operator Relationship Specialty Start Date End Date Santa Augustin MD [address] [place] [address], [place] [address] PCP - General Family Medicine 07/09/20 Team Status: Inactive Member Role Status Dates [...] September 19, 2023 End: September 19, 2023 Derrick Operator Relationship Specialty Start Date End Date Santa Augustin MD PCP - General Family Medicine 10/26/17 Derrick Operator Relationship Specialty Start Date End Date Santa Augustin MD [address] [place] [facility] [phone] PCP - General Family Medicine 10/10/23 Derrick Operator Relationship Specialty Start Date End Date Santa Augustin MD [address] [place] [facility] [place] [phone] PCP - General Family Medicine 10/10/23 Derrick Operator Relationship Specialty Start Date End Date Santa Augustin MD [address] [place] [facility] [place] [phone] PCP - General Family Medicine 10/10/23 Derrick Operator Relationship Specialty Start Date End Date Santa Augustin MD [address] [place] [facility] [place] [phone] PCP - General Family Medicine 10/10/23 Derrick Operator Relationship Specialty Start Date End Date Santa Augustin MD [address] [place] [facility] [place] [phone] PCP - General Family Medicine 10/10/23 Derrick Operator Relationship Specialty Start Date End Date Santa Augustin MD [address] [place] [address], [place] [phone] PCP - General Family Medicine 10/10/23 Derrick Operator Relationship Specialty Start Date End Date Santa Augustin MD [address] [place] [phone] PCP - General Family Medicine 12/14/11 Tim Barker MD [address] [facility] [address] [place] [address] Referring Neurology 01/09/19 Derrick Operator Relationship Specialty Start Date End Date Santa Augustin MD [address] [place] [phone] PCP - General Family Medicine 12/14/11 Tim Barker MD [address] [facility] [address] [place] [address] Referring Neurology 01/09/19 Derrick Operator Relationship Specialty Start Date End Date Santa Augustin MD [address] [place] [phone] PCP - General 07/27/17 Derrick Operator Relationship Specialty Start Date End Date Santa Augustin MD [address] [place] [phone] PCP - General 07/27/17 Goals (unrecognized section and content) Goals may [...] (Given - Provid er: Tomas Woodall RN) Source Comments (unrecognize d section and content) In the event this informatio n is protected by the Federal Confidentiality of Alcohol and Drug Abuse Patient Records regulations: The Federal rules restrict any use of the information to criminally investigate or prosecute any alcohol or drug abuse patient.[facility] the event this information is protected by the Federal Confidentiality of Alcohol and Drug Abuse Patient Records regulations: The Federal rules restrict any use of the information to criminally investigate or prosecute any alcohol or drug abuse patient.[facility] FOR RECORDS PERTAINING TO PATIENTS WHO ARE [...] BE BASED ON THE PRIMARY CLINICAL RECORDS. [facility]. provides no warranty or guarantee of the accuracy or completeness of information in this document.
[2024-08-04 11:08] LABS: Lithium (Eskalith(R)), Serum 0.9 mmol/L (0.5-1.2)
== END 2024-08-03 08:19 | disposition home or self-care (01) ==
LOC: LAB 08:20
PROVIDERS: PCP Family Medicine; Visit Provider Psychiatry & Neurology Psychiatry
DX: F31.63 Bipolar disorder, current episode mixed, severe, without psychotic features (principal); Z79.899 Other long term (current) drug therapy
CPT/HCPCS: 36415; 80178

== ENCOUNTER 2024-08-28 12:39 | Outpatient (OUT) | payer OTHER, SELFPAY ==
[2024-08-28 14:26] LABS: Albumin Level 4.1 g/dL (3.4-5.0); Anion Gap 14.3; BUN Creatinine Ratio 20.5; Calcium 10.2 mg/dL (8.5-10.1); Carbon Dioxide 27.1 mmol/L (21.0-32.0); Chloride 107 mmol/L (98-107); Estimated GFR (African America 38 (>=60 mL/min/1.73m^2); Estimated GFR (Non-African Ame 31 (>=60 mL/min/1.73m^2); Glucose 91 mg/dL (74-106); Magnesium 2.2 mg/dL (1.8-2.4); Phosphorus 4.8 mg/dL (2.6-4.7); Potassium 4.4 mmol/L (3.5-5.1); Sodium 144 mmol/L (136-145)
== END 2024-08-28 12:40 | disposition home or self-care (01) ==
PROVIDERS: PCP Family Medicine; Visit Provider Internal Medicine
DX: E55.9 Vitamin D deficiency, unspecified (principal); N18.32 Chronic kidney disease, stage 3b
CPT/HCPCS: 36415; 80069; 82306; 83735

== ENCOUNTER 2024-09-14 07:33 | Outpatient (OUT) | payer OTHER, SELFPAY ==
--- OUTSIDE RECORDS SUMMARY | 2024-09-14 07:39 | XMS_ITS | CCD ---
Author Organization [facility] Care Team Providers Care Dictaphone Operator Name Role Phone SANTA AUGUSTIN Unavailable Unavailable CASSIDY, AHMED Unavailable Unavailable CASSIDY, AHMED Unavailable Unavailable MARY KATE MAST Unavailable Unavailable Santa Augustin Primary Care Provider Santa Augustin MD Primary Care Provider Santa Augustin MD Primary Care Provider Zachary Pascual Unavailable Geneva Naik Unavailable MD Santa Augustin Primary Care Provider [phone] DO [facility] Emergency Provider MD Austyn Marco A Admit Provider MD Austyn Marco A Attending Provider [phone] Marco A Zaman Admitting Unavailable Santa Augustin Primary Care Unavailable Marco A Zaman Attending Unavailable Geneva Naik Attending Unavailable Geneva Naik Admitting Unavailable AugustinCoryia E Primary Care Unavailable Santa Augustin MD Primary Care Provider [phone] SANTA AUGUSTIN Primary Care Unavailable GEHLOT, UPENDER [...] Unavailable GEHLOT, UPENDER Attending Unavailable ROSMERY MOON CALIXTO Consulting Unavailangel LAURENT ., DR DE OLIVEIRA [...] PENALOZA Attending Unavailable SANTA AUGUSTIN Referring Unavailable ASNTA AUGUSTIN Primary Care Unavailable SANTA AUGUSTIN Referring Unavailable SANTA AUGUSTIN Primary Care Unavailable Santa Augustin MD Primary Care Provider Santa Augustin MD Primary Care Provider Tim Barker MD Unavailable CHRISTINE BROWN Attending Unavailable CHRISTINE BROWN Referring Unavailable SANTA AUGUSTIN Primary Care Unavailable CHRISTINE BROWN Attending Unavailable SANTA AUGUSTIN Primary Care Unavailable Santa Augustin MD Primary Care Provider [phone] XENA MARRUFO Attending Unavailable XENA MARRUFO Referring Unavailable GRETCHEN JENSEN Attending Unavailable APLINGGRETCHEN Attending Unavailable APLING, GRETCHEN Fried Attending Unavailable APLINGGRETCHEN Referring Unavailable APLINGGRETCHEN Attending Unavailable APLGRETCHEN CUEVAS Referring Unavailable GRETCHEN JENSEN Attending Unavailable GRETCHEN JENSEN Referring Unavailable GRETCHEN JENSEN Attending Unavailable CONSUELO, GRETCHEN Fried Referring Unavailable RUBY ASENCIO Attending Unavailable APLING, GRETCHEN Fried Referring Unavailable VANDANA CHEN Attending Unavailable Allergies Allergy Classification Reported Allergen(s) Allergy Type Date of Onset Reaction(s) Facility (20 sources) chlorproMAZINE; Translations: [CHLORPROMAZINE] Drug Allergy 5 Other: See Comments, muscle cramps [facility] Trifluoperazine; Translations: [TRIFLUOPERAZINE] Drug Allergy 0 Other (See Comments), muscle cramps [facility] (1 source) chlorproMAZINE Drug Allergy 5 [facility] Repository Medications Current Medications Medication Drug Class(es) [...] / eicosapentaenoic acid 180 mg oral capsule (9 sources) omega-3 (fish oi l) 1000 MG [...] On Own) take 1 capsule by mo [facility] once daily as needed Docusate Sodium (DSS) 100 MG capsule 1 capsule as needed Orally Once a day Active fluticasone (1 source) Corticosteroid fluticasone propionate (FLONASE NASAL) Use in the nose. As needed Active lithium carbonate 300 mg extended release oral tablet (20 sources) Start: 09-19-2023 take 600 mg by mouth once daily at bedtime [place] Carbonate Active 600 MG PO Daily at [...] Active Start: 12-28-2018 [facility] lithium carbonate ER 450 mg CR tablet Take 450 mg by mouth twice daily. 12/28/2018 Active take 1 capsule by mo [facility] at bedtime lithium 600 MG capsule Take 600 mg by mouth at bedtime Active take 2 tablets by mo [facility] every twenty-four hours [place] Carbonate ER 300 MG 2 tab(s) Orally Once a day Active MegaRed [place]-3 Krill Oil 50 0 MG (10 sources) MegaRed [place]-3 Krill Oil 500 MG as directed Orally ONCE A DAY Active mirtazapine 15 mg oral tablet (1 source) Start: 11-22-2017 take 1 tablet by mouth once daily mirtazapine (REMERON) 15 MG tablet Take 1 tablet by mouth nightly 14 tablet 0 11/22/2017 Active Misc Natural Products (Neuriva) capsule (9 sources) Misc Natural Pro ducts (Neuriva) capsule [...] 90 tablet 1 01/18/2022 02/12/2022 Discontinued (Reorder) [place] 6-Lnr-Zru-Fish Oil-Krill (Megared Advanced 4-In-1) 339 mg-314 mg- 500 mg capsule (2 sources) Start: 09-19-2023 [place] 5-Fsq-Ecs-Fish Oil-Krill (Megared Advanced 4-In-1) 339 mg-314 mg- [...] mg 0 12/18/2017 Active polyethylene glycol 3350 [id number] mg powder for oral solution (2 sources) [...] [Generalized anxiety disorder] Onset: 1 08-22-2020 Chronic Cataract (4 sources) Bilateral age-related nuclear cataracts; Translations: [Age-related [...] hypertension; Translations: [Essential (primary) hypertension] 11-22-2017 Chronic Nausea and vomiting (1 source) Nausea and vomiting; Translations: [Nausea with vomiting, unspecified] Episodic Noninfectious gastroenteritis (1 source) Noninfective gastroenteritis and colitis, unspecified Episodic Nutritional deficiencies (4 sources) Vitamin D deficiency; Translations: [Vitamin D deficiency, unspecified] Onset: 5 08-29-2024 Chronic Other aftercare (2 sources) H/O: high risk medication; Translations: [Other fdc (current) drug therapy] Episodic Other aftercare (13 sources) Other intermediate card tender (current) drug therapy; Translations: [Long-term (current) use of other medications] Onset: 1 Resolved: 1 Episodic Other aftercare (2 sources) On lithium; Translations: [Other fdc (current) drug therapy] 09-19-2023 Episodic Other circulatory [...] ORIGN] Onset: 2 Chronic Other endocrine disorders (12 sources) Hyperparathyroidism; Translations: [Hyperparathyroidism, unspecified] Onset: 5 09-19-2023 Chronic Other endocrine disorders (4 sources) Hyperparathyroidism, unspecified; Translations: [Hyperparathyroidism, unspecified] Chronic Other eye disorders (6 sources) Downbeat nystagmus; Translations: [Other forms of nystagmus] Onset: 4 04-13-2024 Chronic Other eye disorders (2 sources) Hypertropia of [...] Episodic Other nutritional; endocrine; and metabolic disorders (18 sources) Hypercalcemia; Translations: [Hypercalcemia] Onset: 5 09-19-2023 Chronic Other nutritional; endocrine; and metabolic [...] [Right lower quadrant pain] Onset: 11-14-2018 Episodic Blindness and vision defects (4 sources) Diplopia; Translations: [Diplopia] Onset: 04-13-2024 04-13-2024 Episodic Chronic kidney disease (12 sources) Chronic [...] FIB INIT CLOS FX] Onset: 12-09-2021 Episodic Fracture of upper limb (13 sources) Closed fracture of right wrist; Translations: [Fracture of unspecified carpal bone, right wrist, initial encounter for closed fracture] Onset: 10-08-2023 10-08-2023 Episodic Malaise and fatigue (1 source) Fatigue; Translations: [Other fatigue] Onset: 04-19-2018 Episodic Mood disorders (20 sources) Mild manic bipolar I disorder; Translations: [Bipolar disorder, current episode manic without psychotic features, mild] Onset: 02-09-2013 Resolved: 10-28-2017 08-22-2020 Chronic Nonspecific chest pain (1 source) Chest pain; Translations: [Other chest pain] Onset: 12-25-2014 Episodic Other eye disorders (4 sources) Dry eyes; Translations: [Dry eye syndrome of bilateral lacrimal glands] Onset: 04-13-2024 04-13-2024 Episodic Other gastrointestinal disorders (2 sources) Pelvic [...] distribution width (RBC) [Ratio] 13.3 % 11.0-15.[address] [facility] Estimated glomerular filtrat ion rate (GFR) non- Americanon 03-24-2024 GFR/1.73 sq M.predicted among non-blacks MDRD (S/P/Bld) [Vol rate/Area] 32 mL/min/{1.73_m2} Low >=60 mL/min/1.7 [address]m [address] [facility] Hematocrit Auto (Bld) [Volum e fraction]on 03-24-2024 Hematocrit (Bld) [Volume fraction] 39.7 % 36.0-48.[address] [facility] Hemoglobin [Mass/volume] in Bloodon 03-24-2024 Hemoglobin (Bld) [Mass/Vol] 12.7 g/dL 12.0-16.[address] [facility] Laboratory - Chemistry and C hemistry - challengeon 03-24-2024 Albumin [Mass/Vol] 3.5 g/dL 3.4-5.[address] [facility] Calcium [Mass/Vol] 10.2 mg/dL High 8.5-10.[address] [facility] Chloride [Moles/Vol] 111 mmol/L High 98-107 [facility] CO2 [Moles/Vol] 28.1 mmol/L 21.0-32.0 [facility] Creatinine [Mass/Vol] 1.62 mg/dL High 0.55-1.02 [facility] GFR/1.73 sq M.predicted MDRD (S/P/Bld) [Vol rate/Area] 39 mL/min/{1.73_m2} Low >=60 mL/min/1.7 3m [address] [facility] Glucose [Mass/Vol] 93 mg/dL 74-[address] [facility] Magnesium [Mass/Vol] 2.3 mg/dL 1.8-2.4 [facility] Potassium [Moles/Vol] 4.2 mmol/L 3.5-5.1 [facility] Sodium [Moles/Vol] 148 mmol/L High 136-[address] [facility] Urate [Mass/Vol] 6.4 mg/dL High 2.6-6.0 [facility] Urea nitrogen [Mass/Vol] 23.0 mg/dL High 7.0-18.[address] [facility] Urea nitrogen/Creatinine [Mass ratio] 14.2 mg/mg [facility] Bilirubin Ql (U) Negative NEGATIVE [facility] Glucose (U) [Mass/Vol] Negative NEGATIVE [facility] Ketones Ql (U) Negative NEGATIVE [facility] pH (U) 6.0 [pH] 5.0-9.[address] [facility] Specific gravity (U) [Rel density] <=1.005 Abnormal 1.005-1.[address] [facility] Urobilinogen Qn (U) 0.2 {Destiny'U}/dL 0.2-1.[address] [facility] Laboratory - Specimen inform ationon 03-24-2024 Appearance (U) CLEAR CLEAR [facility] Color (U) LT. YELLOW YELLOW [facility] Laboratory - Urinalysison Leukocyte esterase Test strip Ql (U) SMALL Abnormal NEGATIVE [facility] Mucus Ql (Urine sed) NONE SEEN NONE SEEN [facility] Nitrite Ql (U) Negative NEGATIVE [facility] Protein Ql (U) Negative NEG/TRACE [facility] Leukocytes [#/volume] correc prashanth for nucleated erythrocytes in Blood by Automated counon 03-24-2024 WBC corrected for nucl RBC Auto (Bld) [#/Vol] 7.4 10 3/uL 4.0-11.[address] [facility] MCH Auto (RBC) [Entitic mass ]on 03-24-2024 MCH (RBC) [Entitic mass] 32.3 pg 26.7-34.[address] [facility] MCHC Auto (RBC) [Mass/Vol]on 03-24-2024 MCHC (RBC) [Mass/Vol] 32.0 g/dL 29.9-35.2 [facility] MCV Auto (RBC) [Entitic vol] on 03-24-2024 MCV (RBC) [Entitic vol] 101.0 fL High 81.0-99.[address] [facility] No Panel Informationon 03-24 25-Hydroxy Vitamin D Total 30.0 ng/mL [facility] Comment on above: <20 ng/mL Vit D defi cient20-<30 ng/mL Vit D [id number] ng/mL Vit D sufficient>100 ng/mL Potential Toxicity Parathyroid Hormone (Intact) 69 pg/mL Abnormal 15-[address] [facility] Comment on above: Performed at: - [place] [id number] Director: Giovany Akbar PhD, Phone: [phone] Phosphorus Level 4.6 mg/dL 2.6-4.7 [facility] Urine Bacteria TRACE #/HPF Abnormal NONE SEEN [facility] Urine Occult Blood Negative NEGATIVE [facility] Urine Other Casts NONE SEEN #/LPF NONE SEEN [facility] Urine Other Crystals None Seen #/HPF None Seen [facility] Urine Random Creatinine 32.98 mg/dL 20.00-300. [address] [facility] Urine Random Total Protein <6.0 mg/dL <=11.[address] [facility] Urine RBC 0-2 #/HPF 0-[address] [facility] Urine Squamous Epithelial Cells RARE #/LPF NONE/RARE [facility] Urine WBC 5-10 #/HPF Abnormal NONE SEEN [facility] Platelet mean volume Auto (B ld) [Entitic vol]on 03-24-2024 Platelet mean volume (Bld) [Entitic vol] 9.8 fL 9.5-13.[address] [facility] Platelets Auto (Bld) [#/Vol] on 03-24-2024 Platelets (Bld) [#/Vol] 241 10 3/uL 150-[address] [facility] RBC Auto (Bld) [#/Vol]on RBC (Bld) [#/Vol] 3.93 10 6/uL Low 4.20-5.40 [facility] Serum or plasma anion gap de terminationon 03-24-2024 Anion gap [Moles/Vol] 13.1 mmol/[facility] protein/creatinine rat ioon 03-24-2024 Protein/Creatinine (U) [Ratio] 0.[address] [facility] No Panel Informationon 01-31 [place] Level 0.8 mmol/L 0.5-1.[address] [facility] Comment on above: A concentration of 0 .5-0.8 mmol/L is advised for long-termuse; concentrations of up to 1.2 mmol/L may be necessaryduring acute treatment. Detection Limit = 0.1 <0.1 indicates None DetectedPerformed at: [facility] [id number] Director: Giovany Akbar PhD, Phone: [phone] XR Wrist - right 2 Viewson 0 01-31-2024 Imaging Result: January 29 and 2023 x-rays AP and lateral of the right wrist demonstrate a fracture of the distal radius. Which is healed with reversal volar tilt. There are no new fractures identified. Impression: Healed distal radius fracture right wrist Khang Valentin D.O. [facility] [employer] XR Wrist - right 2 ViewsOrde red By: Steve Valentin on 01-31-2024 [employer] Work Phone: XR Wrist - right 2 Viewson 0 01-30-2024 Radiology Study observation (narrative) [facility] XR WRIST RIGHT (MIN 3 VIEWS) on [...] Channing Jasso MD 10/08/23 Final result Normal [facility] XR Wrist - right 3 Viewson 0 10-08-2023 Nondisplaced fractur e of the distal radius. Fracture of the ulna styloid. [facility] RIS CONSOLIDATED EXAMINATION: XRAY VIEWS OF [...] spaces appear well maintained. Soft tissue swelling. [facility] RIS CONSOLIDATED Channing Jasso MD - [...] distal radius. Fracture of the ulna styloid. [facility] Radiology Study observation (narrative) [facility] XR Wrist - right 3 ViewsOrde red By: Channing Jasso on 10-08-2023 [employer] [employer] Work Phone: Estimated glomerular filtrat ion rate (GFR) non- Americanon 08-29-2023 GFR/1.73 sq M.predicted among non-blacks MDRD (S/P/Bld) [Vol rate/Area] 39 mL/min/{1.73_m2} >=[address] [facility] Laboratory - Chemistry and C hemistry - challengeon 08-29-2023 Albumin [Mass/Vol] 3.6 g/dL 3.4-5.[address] [facility] Calcium [Mass/Vol] 9.6 mg/dL 8.5-10.[address] [facility] Chloride [Moles/Vol] 107 mmol/L 98-107 [facility] CO2 [Moles/Vol] 28.7 mmol/L 21.0-32.0 [facility] Creatinine [Mass/Vol] 1.37 mg/dL 0.55-1.02 [facility] GFR/1.73 sq M.predicted MDRD (S/P/Bld) [Vol rate/Area] 47 mL/min/{1.73_m2} >=[address] [facility] Glucose [Mass/Vol] 92 mg/dL 74-[address] [facility] Potassium [Moles/Vol] 4.2 mmol/L 3.5-5.1 [facility] Sodium [Moles/Vol] 142 mmol/L 136-[address] [facility] Urea nitrogen [Mass/Vol] 26.0 mg/dL 7.0-18.[address] [facility] Urea nitrogen/Creatinine [Mass ratio] 19.0 mg/mg [facility] No Panel Informationon 08-28 25-Hydroxy Vitamin D Total 32.2 ng/mL [facility] Comment on above: <20 ng/mL Vit D defi cient20-<30 ng/mL Vit D kskslylhafur44-418 ng/mL Vit D sufficient>100 ng/mL Potential Toxicity Miscellaneous Test COMMENT . [facility] Comment on above: Test Ordered: [id number] Ca+PTH IntactCalcium 10.0 mg/dL CB Reference Range: 8.7-10.3PTH, Intact 62 pg/mL CB Reference Range: 15-65Intact PTH Comment CB Reference Range: .Interpretation Intact PTH Calcium (pg/mL) (mg/dL)Normal 15 - 65 8.6 - 10.2Primary Hyperparathyroidism >65 >10.2Secondary Hyperparathyroidism >65 <10.2Non-Parathyroid Hypercalcemia <65 >10.2Hypoparathyroidism <15 < 8.6Non-Parathyroid Hypocalcemia 15 - 65 < 8.6Performed at: - [facility] [address] [id number] Director: Giovany Akbar PhD, Phone: [phone] Phosphorus Level 4.1 mg/dL 2.6-4.7 [facility] Serum or plasma anion gap de terminationon 08-29-2023 Anion gap [Moles/Vol] 10.5 mmol/L [facility] LITHIUMon 05-27-2022 [place] (Eskalith(R)), Serum 1.2 mmol/L Normal 0.5-1.2 [facility] Comment on above: Result Comment: A co ncentration of 0.5-0.8 mmol/L is advised for long-term use; concentrations of up to 1.2 mmol/L may be necessary during acute treatment. Detection Limit = 0.1 <0.1 indicates None Detected Performed By: #### L ITHIUM #### [facility] [address] [place] [address] [address] Emanuel Degroot RENAL FUNCTION PANELon 05-08 Albumin [Mass/Vol] 3.7 g/dL Normal 3.4-5.0 [facility] Comment on above: Performed By: #### R ENAL #### [facility] [address] [address] [address] Emanuel Degroot Calcium [Mass/Vol] 9.5 mg/dL Normal 8.5-10.1 [facility] Comment on above: Performed By: #### R ENAL #### [facility] [address] [address] [address] Emanuel Degroot Chloride [Moles/Vol] 106 mmol/L Normal 98-107 [facility] Comment on above: Performed By: #### R ENAL #### [facility] [address] [address] [address] Emanuel Degroot CO2 [Moles/Vol] 29.2 mmol/L Normal 21.0-32.0 [facility] Comment on above: Performed By: #### R ENAL #### [facility] [address] [address] [address] Emanuel Degroot Creatinine [Mass/Vol] 1.30 mg/dL Critically high 0.55-1.02 [facility] Comment on above: Performed By: #### R ENAL #### [facility] [address] [address] [address] Emanuel Degroot EGFR-AF CENTRAL AFRICAN 50 mL/min/1.73m2 Critically low >=60 [facility] Comment on above: Performed By: #### R ENAL #### [facility] [address] [address] [address] Emaunel Degroot EGFR-NON AF CENTRAL AFRICAN 42 mL/min/1.73m2 Critically low >=60 [facility] Comment on above: Performed By: #### R ENAL #### [facility] [address] [address] [address] Emanuel Degroot Glucose [Mass/Vol] 96 mg/dL Normal 74-106 [facility] Comment on above: Performed By: #### R ENAL #### [facility] [address] [place] [address] [address] Emanuel Degroot Phosphate [Mass/Vol] 4.1 mg/dL Normal 2.6-4.7 [facility] Comment on above: Performed By: #### R ENAL #### [facility] [address] [address] [address] Emanuel Degroot Potassium [Moles/Vol] 4.0 mmol/L Normal 3.5-5.1 [facility] Comment on above: Performed By: #### R ENAL #### [facility] [address] [address] [address] Emanuel Degroot Sodium [Moles/Vol] 140 mmol/L Normal 136-145 [facility] Comment on above: Performed By: #### R ENAL #### [facility] [address] [address] [address] Emanuel Degroot Urea nitrogen [Mass/Vol] 18.0 mg/dL Normal 7.0-18.0 [facility] Comment on above: Performed By: #### R ENAL #### [facility] [address] [address] [address] Emanuel Degroot MG MAMM SCREEN TERRA W CADon 1 06-08-2021 MG MAMM SCREEN TERRA W CAD Patient: NOLA WALLER Exam Date: 04/08/2022 : 1960 Gender:F Ordering : DR SANTA AUGUSTIN M.D. Admission #: [id number] Family : Order #: [id number] CLICK HERE TO VIEW EXAM RADIOLOGY REPORT [...] colon cancer at age 55. LOCATION: [facility] BREAST COMPOSITION: Scattered areas fibroglandular density. FINDINGS: [...] MD on 04/08/2022 at 13:40 Normal [facility] US EXT NON VASC LIMITED RTon [...] by: DENTON DELGADO Date: 2022-04-08 18:20 Normal [facility] Albumin [Mass/volume] in Ser um or PlasmaOrdered By: Horacio Kim on 03-19-2022 Albumin [Mass/Vol] 3.3 g/dL 3.2-5.[address] [facility] Comprehensive Metabolic Pane sanjeev 03-19-2022 Albumin [Mass/Vol] 3.3 g/dL Normal 3.2-5.[address] [facility] Comment on above: Performed By: #### C MP #### [address] Albumin/Globulin [Mass ratio] 1.3 {ratio} Normal [facility] Comment on above: Performed By: #### C MP #### [address] ALP [Catalytic activity/Vol] 38 U/L Normal 32-[address] [facility] Comment on above: Performed By: #### C MP #### [place] [address] [place] ALT [Catalytic activity/Vol] 22 U/L Normal 10-[address] [facility] Comment on above: Performed By: #### C MP #### [address] Anion gap [Moles/Vol] 9.6 mmol/L Normal 6.0-15.0 [facility] Comment on above: Performed By: #### C MP #### [address] AST [Catalytic activity/Vol] 19 U/L Normal 10-[address] [facility] Comment on above: Performed By: #### C MP #### [facility] [address] Bilirubin [Mass/Vol] 0.5 mg/dL Normal 0.3-1.2 [facility] Comment on above: Performed By: #### C MP #### [facility] [address] Calcium [Mass/Vol] 9.6 mg/dL Normal 8.2-10.[address] [facility] Comment on above: Performed By: #### C MP #### [facility] [address] Chloride [Moles/Vol] 110 mmol/L Normal 95-114 [facility] Comment on above: Performed By: #### C MP #### [facility] [address] [place] [address] CO2 [Moles/Vol] 26.6 mmol/L Normal 22.0-30.0 [facility] Comment on above: Performed By: #### C MP #### [address] Creatinine [Mass/Vol] 1.26 mg/dL High 0.44-1.03 [facility] Comment on above: Performed By: #### C MP #### [address] Creatinine Clr Calc Pharmacy 44.02 [facility] Comment on above: Result Comment: PERF ORMED BY: [place] [address] PATHOLOGIST COMMUNITY DEVELOPMENT COORDINATOR KRISTI TURNER M.D. Performed By: #### C MP #### [address] Estimated GFR ( Katrina 52 [facility] Comment on above: Result Comment: GFR estimated reference range: According to KDOQI guidelines, <60 ml/min/1.73m2 is sufficient to diagnose a patient with chronic kidney disease. Performed By: #### C MP #### [address] Estimated GFR (Non- Am [address] [facility] Comment on above: Performed By: #### C MP #### [facility] [address] Globulin (S) [Mass/Vol] 2.6 g/dL Normal [facility] Comment on above: Performed By: #### C MP #### [facility] [address] Glucose [Mass/Vol] 95 mg/dL Normal 70-[address] [facility] Comment on above: Result Comment: [facility] Glucose Reference Range is dependent on time and content of last meal. Glucose of more than 200 mg/dL in a nonstressed, ambulatory subject supports the diagnosis of Diabetes Mellitus. ADA recommended reference range Performed By: #### C MP #### [address] Potassium [Moles/Vol] 4.2 mmol/L Normal 3.5-5.1 [facility] Comment on above: Performed By: #### C MP #### [address] Protein [Mass/Vol] 5.9 g/dL Low 6.1-7.[address] [facility] Comment on above: Performed By: #### C MP #### [address] Sodium [Moles/Vol] 142 mmol/L Normal 136-[address] [facility] Comment on above: Performed By: #### C MP #### [place] [address] [place] Urea nitrogen [Mass/Vol] 28 mg/dL High 9-[address] [facility] Comment on above: Performed By: #### C MP #### [place] [address] [place] Creatinine and Glomerular fi ltration rate.predicted panel (S/P/Bld)Ordered By: Horacio Kim on 03-19-2022 Creatinine [Mass/Vol] 1.26 mg/dL 0.44-1.03 [facility] Estimated glomerular filtrat ion rate (GFR) non- AmericanOrdered By: Horacio Kim on 03-19-2022 GFR/1.73 sq M.predicted among non-blacks MDRD (S/P/Bld) [Vol rate/Area] 43 mL/Min [facility] Globulin Calc (S) [Mass/Vol] Ordered By: Horacio Kim on 03-19-2022 Globulin (S) [Mass/Vol] 2.6 g/dL [facility] No Panel InformationOrdered By: Horacio Kim on 03-19-2022 Estimated GFR () 52 mL/Min [facility] Comment on above: GFR estimated refere nce range: According to KDOQI guidelines, <60 ml/min/1.73m2 is sufficient to diagnose a patient with chronic kidney disease. Pharmacy Creatinine Clearance (Chem 44.[address] [facility] Protein [Mass/volume] in Ser um or PlasmaOrdered By: Horacio Kim on 03-19-2022 Protein [Mass/Vol] 5.9 g/dL 6.1-7.[address] [facility] Serum or plasma alanine arora otransferase measurement without P-5'-P (enzymatic activiOrdered By: Horacio Kim on 03-19-2022 ALT No additional P-5'-P [Catalytic activity/Vol] 22 U/L 10-[address] [facility] Serum or plasma albumin/glob ulin mass ratioOrdered By: Horacio Kim on 03-19-2022 Albumin/Globulin [Mass ratio] 1.3 {ratio} [facility] Serum or plasma alkaline lashaun sphatase measurement (enzymatic activity/volume)Ordered By: Horacio Kim on 03-19-2022 ALP [Catalytic activity/Vol] 38 U/L 32-[address] [facility] Serum or plasma anion gap de terminationOrdered By: Horacio Kim on 03-19-2022 Anion gap [Moles/Vol] 9.6 mmol/L 6.0-15.0 [facility] Serum or plasma aspartate am inotransferase measurement (enzymatic activity/volume)Ordered By: Horacio Kim on 03-19-2022 AST [Catalytic activity/Vol] 19 U/L 10- [facility] Serum or plasma calcium sunil urement (mass/volume)Ordered By: Horacio Kim on 03-19-2022 Calcium [Mass/Vol] 9.6 mg/dL 8.2-10.[address] [facility] Serum or plasma chloride leo surement (moles/volume)Ordered By: Horacio Kim on 03-19-2022 Chloride [Moles/Vol] 110 mmol/L 95-114 [facility] Serum or plasma glucose sunil urement (mass/volume)Ordered By: Horacio Kim on 03-19-2022 Glucose [Mass/Vol] 95 mg/dL 70-[address] [facility] Comment on above: ADA recommended refe rence rangeRandom Glucose Reference Range is dependent on time and content of last meal. Glucose of more than 200 mg/dL in a nonstressed, ambulatory subject supports the diagnosis of Diabetes Mellitus. Serum or plasma potassium me asurement (moles/volume)Ordered By: Horacio Kim on 03-19-2022 Potassium [Moles/Vol] 4.2 mmol/L 3.5-5.1 [facility] Serum or plasma sodium measu rement (moles/volume)Ordered By: Horacio Kim on 03-19-2022 Sodium [Moles/Vol] 142 mmol/L 136-[address] [facility] Serum or plasma total biliru bin measurement (mass/volume)Ordered By: Horacio Kim on 03-19-2022 Bilirubin [Mass/Vol] 0.5 mg/dL 0.3-1.2 [facility] Serum or plasma total carbon dioxide measurement (moles/volume)Ordered By: Horacio Kim on 03-19-2022 CO2 [Moles/Vol] 26.6 mmol/L 22.0-30.0 [facility] Serum or plasma urea nitroge n measurement (mass/volume)Ordered By: Horacio Kim on 03-19-2022 Urea nitrogen [Mass/Vol] 28 mg/dL [address] [facility] Urine culture routineOrdered By: Ruby Penn on 03-13-2022 Bacteria identified Cx Nom (U) [address] [facility] Glucose Glucometer (BldC) [M ass/Vol]Ordered By: Marco A Zaman on 03-12-2022 Glucose [Mass/Vol] 120 mg/dL [facility] Comment on above: Random Glucose Refer ence Range is dependent on time and content of last meal. Glucose of more than 200 mg/dL in a nonstressed, ambulatory subject supports the diagnosis of Diabetes Mellitus. Glucose Poct Glucometerson 1 Commemt[address] [facility] Comment on above: Result Comment: Glu2 : Procedure Error PERFORMED BY: [place] [address] PATHOLOGIST COMMUNITY DEVELOPMENT COORDINATOR KRISTI TURNER M.D. Performed By: #### L IPID, TSH3 wRFLX, [id number] #### [facility] [address] [place] [address] Glucose [Mass/Vol] 120 mg/dL Normal [facility] Comment on above: Result Comment: [place] om Glucose Reference Range is dependent on time and content of last meal. Glucose of more than 200 mg/dL in a nonstressed, ambulatory subject supports the diagnosis of Diabetes Mellitus. Performed By: #### L IPID, TSH3 wRFLX, [id number] #### [facility] [address] [place] [address] Amphetamine Screen Ql (U)Ord ered By: Ruby Penn on 03-11-2022 Amphetamines Ql (U) Negative Negative [facility] Automated erythrocytes count in urine sediment (number/area)Ordered By: Ruby Penn on 03-11-2022 RBC Auto (Urine sed) [#/Area] None seen [HPF] 0-[address] [facility] Automated leukocytes count i n urine sediment (number/area)Ordered By: Ruby Penn on 03-11-2022 WBC Auto (Urine sed) [#/Area] 10-19 [HPF] 0-[address] [facility] Barbiturates [Presence] in U rineOrdered By: Ruby Penn on 03-11-2022 Barbiturates Ql (U) Negative Negative [facility] Basophils Auto (Bld) [#/Vol] Ordered By: Ruby Penn on 03-11-2022 Basophils (Bld) [#/Vol] 0.1 10*3/uL 0.0-0.[address] [facility] Basophils/100 WBC Auto (Bld) Ordered By: Ruby Penn on 03-11-2022 Basophils/100 WBC (Bld) 0.8 % . [facility] Benzodiazepines [Presence] i n UrineOrdered By: Ruby Penn on 03-11-2022 Benzodiazepines Ql (U) Negative Negative Fi [facility] Bilirubin Test strip Ql (U)O rdered By: Ruby Penn on 03-11-2022 Bilirubin Ql (U) Negative Negative [facility] Blood hemoglobin measurement (mass/volume)Ordered By: Ruby Penn on 03-11-2022 Hemoglobin (Bld) [Mass/Vol] 13.5 g/dL 11.8-15.[address] [facility] Blood leukocytes automated c ount (number/volume)Ordered By: Ruby Penn on 03-11-2022 WBC (Bld) [#/Vol] 10.1 10*3/uL 4.5-11.0 [facility] Body fluid albumin measureme nt (mass/volume)Ordered By: Ruby Penn on 03-11-2022 Albumin (Body fld) [Mass/Vol] 3.9 g/dL 3.2-5.[address] [facility] COVID-19 Antigenon 2 COVID-19 Antigen [...] developed and its performance characteristic determined by [employer] and validated at [facility]. This test has not been [...] for SARS Antigen by [employer] PERFORMED BY: [place] [address] PATHOLOGIST COMMUNITY DEVELOPMENT COORDINATOR KRISTI TURENR M.D. Normal [facility] Comment on above: Performed By: #### C OVID-19 DEMETRIA, SOFIANEG #### [address] COVID-19 SOFIAOrdered By: Joseph Penn on 03-11-2022 SARS-CoV+SARS-CoV-2 (COVID-19) Ag IA.rapid Ql (Resp) Negative Negative [facility] Comment on above: This is a duplicate Demetria SARS Antigen ([facility]) result to be used for statistical tracking purpose only. Cannabinoids [Presence] in U rine by Screen methodOrdered By: Ruby Penn on 03-11-2022 Cannabinoids Screen Ql (U) Negative Negative [facility] Comment on above: These are unconfirme d results and should not be used for legal purposes. Drug Cut-Off Concentration: AMPH 1000 ng/mL LAINA 200 ng/mL AYLEEN 200 ng/mL COCM 300 ng/mL OP 300 ng/mL PCP 25 ng/mL THC 20 ng/mL Cholesterol [Mass/volume] in Serum or PlasmaOrdered By: Marco A Zaman on 03-11-2022 Cholesterol [Mass/Vol] 208 mg/dL 140-200 [facility] Comment on above: Chol less than 200 m g/dl low riskChol 201-239 mg/dl borderline riskChol 240 mg/dl and greater high risk Cholesterol in LDL Calc [Mas s/Vol]Ordered By: Marco A Zaman on 03-11-2022 Cholesterol in LDL [Mass/Vol] 120 mg/dL 0-[address] [facility] Comment on above: LDL ATP III CLASSIFI CATIONLDL less than 100 mg/dL OptimalLDL 100-129 mg/dL Near or above optimalLDL 130-159 mg/dL Borderline highLDL 160-189 mg/dL HighLDL greater than 189 mg/dL Very high Cholesterol in VLDL Calc [Ma ss/Vol]Ordered By: Marco A Zaman on 03-11-2022 Cholesterol in VLDL [Mass/Vol] 30 mg/dL [facility] Color Auto (U)Ordered By: Joseph Penn on 03-11-2022 Color (U) Yellow Yellow [facility] Comprehensive Metabolic Pane sanjeev 03-11-2022 Albumin [Mass/Vol] 3.9 g/dL Normal 3.2-5.[address] [facility] Comment on above: Performed By: #### L IPID, TSH3 wRFLX, [id number] #### [facility] [address] [place] [address] Albumin/Globulin [Mass ratio] 1.2 {ratio} Normal [facility] Comment on above: Performed By: #### L IPID, TSH3 wRFLX, [id number] #### [facility] [address] ALP [Catalytic activity/Vol] 45 U/L Normal 32-[address] [facility] Comment on above: Performed By: #### L IPID, TSH3 wRFLX, [id number] #### [facility] [address] [place] [address] ALT [Catalytic activity/Vol] 22 U/L Normal 10-[address] [facility] Comment on above: Performed By: #### L IPID, TSH3 wRFLX, [id number] #### [address] Anion gap [Moles/Vol] 17.0 mmol/L High 6.0-15.0 [facility] Comment on above: Performed By: #### L IPID, TSH3 wRFLX, [id number] #### [address] AST [Catalytic activity/Vol] 21 U/L Normal 10-[address] [facility] Comment on above: Performed By: #### L IPID, TSH3 wRFLX, [id number] #### [address] Bilirubin [Mass/Vol] 0.8 mg/dL Normal 0.3-1.2 [facility] Comment on above: Performed By: #### L IPID, TSH3 wRFLX, [id number] #### [address] Calcium [Mass/Vol] 10.1 mg/dL Normal 8.2-10.[address] [facility] Comment on above: Performed By: #### L IPID, TSH3 wRFLX, [id number] #### [facility] [address] [place] [address] [place] Chloride [Moles/Vol] 102 mmol/L Normal 95-114 [facility] Comment on above: Performed By: #### L IPID, TSH3 wRFLX, [id number] #### [facility] [address] [place] [address] [place] CO2 [Moles/Vol] 24.9 mmol/L Normal 22.0-30.0 [facility] Comment on above: Performed By: #### L IPID, TSH3 wRFLX, [id number] #### [place] [address] [place] Creatinine [Mass/Vol] 1.49 mg/dL High 0.44-1.03 [facility] Comment on above: Performed By: #### L IPID, TSH3 wRFLX, [id number] #### [facility] [address] [place] [address] Creatinine Clr Calc Pharmacy 37.23 [facility] Comment on above: Result Comment: PERF ORMED BY: [place] [address] PATHOLOGIST COMMUNITY DEVELOPMENT COORDINATOR KRISTI TURNER M.D. Performed By: #### L IPID, TSH3 wRFLX, [id number] #### [address] Estimated GFR ( Katrina 43 [facility] Comment on above: Result Comment: GFR estimated reference range: According to KDOQI guidelines, <60 ml/min/1.73m2 is sufficient to diagnose a patient with chronic kidney disease. Performed By: #### L IPID, TSH3 wRFLX, [id number] #### [address] Estimated GFR (Non- Am 35 [facility] Comment on above: Performed By: #### L IPID, TSH3 wRFLX, [id number] #### [address] Globulin (S) [Mass/Vol] 3.2 g/dL [facility] Comment on above: Performed By: #### L IPID, TSH3 wRFLX, [id number] #### [address] Glucose [Mass/Vol] 95 mg/dL Normal 70-[address] [facility] Comment on above: Result Comment: [place] Glucose Reference Range is dependent on time and content of last meal. Glucose of more than 200 mg/dL in a nonstressed, ambulatory subject supports the diagnosis of Diabetes Mellitus. ADA recommended reference range Performed By: #### L IPID, TSH3 wRFLX, [id number] #### [address] [place] [address] [place] Potassium [Moles/Vol] 3.9 mmol/L Normal 3.5-5.1 [facility] Comment on above: Performed By: #### L IPID, TSH3 wRFLX, [id number] #### [facility] [address] Protein [Mass/Vol] 7.1 g/dL Normal 6.1-7.[address] [facility] Comment on above: Performed By: #### L IPID, TSH3 wRFLX, [id number] #### [facility] [address] [place] [address] Sodium [Moles/Vol] 140 mmol/L Normal 136-[address] [facility] Comment on above: Performed By: #### L IPID, TSH3 wRFLX, [id number] #### [facility] [address] [place] [address] Urea nitrogen [Mass/Vol] 30 mg/dL High 9-[address] [facility] Comment on above: Performed By: #### L IPID, TSH3 wRFLX, [id number] #### [place] [address] [place] Creatinine and Glomerular fi ltration rate.predicted panel (S/P/Bld)Ordered By: Ruby Penn on 03-11-2022 Creatinine [Mass/Vol] 1.49 mg/dL 0.44-1.03 [facility] Dipstick and Microscopicon 1 Appearance (U) Clear Normal Clear [facility] Comment on above: Order Comment: Name Collection Type:: Clean-Voided Midstream Performed By: #### C UU, ADDONUAPLUS, UHCG, URDS #### [place] [address] [place] Bacteria,Urine None Seen Normal None Seen [facility] Comment on above: Order Comment: Name Collection Type:: Clean-Voided Midstream Performed By: #### C UU, ADDONUAPLUS, UHCG, URDS #### [place] [id number] [place] Bilirubin,Urine Negative Normal Negative [facility] Comment on above: Order Comment: Name Collection Type:: Clean-Voided Midstream Performed By: #### C UU, ADDONUAPLUS, UHCG, URDS #### [facility] [address] [place] [address] Color (U) Yellow Normal Yellow [facility] Comment on above: Order Comment: Name Collection Type:: Clean-Voided Midstream Performed By: #### C UU, ADDONUAPLUS, UHCG, URDS #### [facility] [address] [place] [address] Glucose Ql (U) Normal Normal Normal [facility] Comment on above: Order Comment: Name Collection Type:: Clean-Voided Midstream Performed By: #### C UU, ADDONUAPLUS, UHCG, URDS #### [facility] [address] [place] [address] Hyaline Casts,Urine None Seen Normal 0-8 [facility] Comment on above: Order Comment: Name Collection Type:: Clean-Voided Midstream Performed By: #### C UU, ADDONUAPLUS, UHCG, URDS #### [facility] [address] [place] [address] Ketones Ql (U) Negative Normal Negative [facility] Comment on above: Order Comment: Name Collection Type:: Clean-Voided Midstream Performed By: #### C UU, ADDONUAPLUS, UHCG, URDS #### [facility] [address] [place] [address] Leukocyte esterase Test strip Ql (U) 3+ High Negative [facility] Comment on above: Order Comment: Name Collection Type:: Clean-Voided Midstream Performed By: #### C UU, ADDONUAPLUS, UHCG, URDS #### [facility] [address] [place] [address] [place] Nitrite,Urine Negative Normal Negative [facility] Comment on above: Order Comment: Name Collection Type:: Clean-Voided Midstream Performed By: #### C UU, ADDONUAPLUS, UHCG, URDS #### [facility] [address] [place] [address] Occult Blood,Urine Negative Normal Negative [facility] Comment on above: Order Comment: Name Collection Type:: Clean-Voided Midstream Performed By: #### C UU, ADDONUAPLUS, UHCG, URDS #### [address] pH (U) 6.5 [pH] Normal 5.0-9.[address] [facility] Comment on above: Order Comment: Name Collection Type:: Clean-Voided Midstream Performed By: #### C UU, ADDONUAPLUS, UHCG, URDS #### [address] Protein,Urine Negative Normal Negative [facility] Comment on above: Order Comment: Name Collection Type:: Clean-Voided Midstream Performed By: #### C UU, ADDONUAPLUS, UHCG, URDS #### [address] RBC,Urine None Seen Normal 0-[address] [facility] Comment on above: Order Comment: Name Collection Type:: Clean-Voided Midstream Performed By: #### C UU, ADDONUAPLUS, UHCG, URDS #### [address] Specificy [place],Urine 1.007 Normal 1.001-1.[address] [facility] Comment on above: Order Comment: Name Collection Type:: Clean-Voided Midstream Performed By: #### C UU, ADDONUAPLUS, UHCG, URDS #### [address] Squamous Epithelial Cell,Urine 0-1 Normal 0-[address] [facility] Comment on above: Order Comment: Name Collection Type:: Clean-Voided Midstream Performed By: #### C UU, ADDONUAPLUS, UHCG, URDS #### [address] Urobilinogen,Urine Normal Normal Normal [facility] Comment on above: Order Comment: Name Collection Type:: Clean-Voided Midstream Performed By: #### C UU, ADDONUAPLUS, UHCG, URDS #### [facility] [address] [place] [address] [place] WBC,Urine 10-19 High 0-[address] [facility] Comment on above: Order Comment: Name Collection Type:: Clean-Voided Midstream Performed By: #### C UU, ADDONUAPLUS, UHCG, URDS #### [place] [address] [place] Drug Screen,Urineon 03-11-20 Amphetamine Screen,Urine Negative Normal Negative [facility] Comment on above: Performed By: #### C UU, ADDONUAPLUS, UHCG, URDS #### [address] Barbiturate Screen,Urine Negative Normal Negative [facility] Comment on above: Performed By: #### C UU, ADDONUAPLUS, UHCG, URDS #### [address] Benzodiazepines Screen,Urine Negative Normal Negative [facility] Comment on above: Performed By: #### C UU, ADDONUAPLUS, UHCG, URDS #### [facility] [address] [place] [address] Cannabinoid Screen,Urine Negative Normal Negative [facility] Comment on above: Result Comment: Thes e are unconfirmed results and should not be used for legal purposes. Drug Cut-Off Concentration: AMPH 1000 ng/mL LAINA 200 ng/mL AYLEEN 200 ng/mL COCM 300 ng/mL OP 300 ng/mL PCP 25 ng/mL THC 20 ng/mL PERFORMED BY: [place] [address] PATHOLOGIST COMMUNITY DEVELOPMENT COORDINATOR KRISTI TURNER M.D. Performed By: #### C UU, ADDONUAPLUS, UHCG, URDS #### [address] Cocaine Screen,Urine Negative Normal Negative [facility] Comment on above: Performed By: #### C UU, ADDONUAPLUS, UHCG, URDS #### [facility] [address] [place] [address] [place] Opiate Screen,Urine Negative Normal Negative [facility] Comment on above: Performed By: #### C UU, ADDONUAPLUS, UHCG, URDS #### [facility] [address] [place] [address] [place] Phencyclidine Screen,Urine Negative Normal Negative [facility] Comment on above: Performed By: #### C UU, ADDONUAPLUS, UHCG, URDS #### [facility] [address] [place] [address] [place] Eosinophils Auto (Bld) [#/Vo l]Ordered By: Ruby Penn on 03-11-2022 Eosinophils (Bld) [#/Vol] 2.1 10*3/uL 0.0-0.[address] [facility] Eosinophils/100 WBC Auto (Bl d)Ordered By: Ruby Penn on 03-11-2022 Eosinophils/100 WBC (Bld) 20.9 % . [facility] Erythrocyte distribution wid th Auto (RBC) [Ratio]Ordered By: Ruby Penn on 03-11-2022 Erythrocyte distribution width (RBC) [Ratio] 14.3 % 11.9-15.[address] [facility] Estimated glomerular filtrat ion rate (GFR) non- AmericanOrdered By: Ruby Penn on 03-11-2022 GFR/1.73 sq M.predicted among non-blacks MDRD (S/P/Bld) [Vol rate/Area] 35 mL/Min [facility] Ethyl Alcohol Profileon Ethanol [Mass/Vol] mg/dL Normal [facility] Comment on above: Performed By: #### L IPID, TSH3 wRFLX, [id number] #### [facility] [address] Percent Ethanol Not performed Normal [facility] Comment on above: Result Comment: PERF ORMED BY: [place] [address] PATHOLOGIST COMMUNITY DEVELOPMENT COORDINATOR KRISTI TURNER M.D. Performed By: #### L IPID, TSH3 wRFLX, [id number] #### [facility] [address] [place] [address] Globulin Calc (S) [Mass/Vol] Ordered By: Ruby Penn on 03-11-2022 Globulin (S) [Mass/Vol] 3.2 g/dL [facility] HCG ( test) IA.rapi d Ql (U)Ordered By: Ruby Penn on 03-11-2022 HCG ( test) Ql (U) Negative [facility] HCG,Urineon 03-11-2022 Beta HCG ( test) Ql (U) Negative Normal [facility] Comment on above: Order Comment: Name Collection Type:: Clean-Voided Midstream Result Comment: PERF ORMED BY: [place] [address] PATHOLOGIST COMMUNITY DEVELOPMENT COORDINATOR KRISTI TURNER M.D. Performed By: #### C UU, ADDONUAPLUS, UHCG, URDS #### [facility] [address] [place] [address] Hematocrit Auto (Bld) [Volum e fraction]Ordered By: Ruby Penn on 03-11-2022 Hematocrit (Bld) [Volume fraction] 40.8 % 34.0-46.[address] [facility] Ketones Auto test strip (U) [Mass/Vol]Ordered By: Ruby Penn on 03-11-2022 Ketones (U) [Mass/Vol] Negative Negative [facility] Laboratory - Drug toxicology Ordered By: Ruby Penn on 03-11-2022 Opiates Ql (U) Negative Negative [facility] Laboratory - Hematology and Cell countsOrdered By: Ruby Penn on 03-11-2022 Nucleated RBC/100 WBC (Bld) [Ratio] 0.1 % 0-0.[address] [facility] Laboratory - UrinalysisOrder ed By: Ruby Penn on 10-06-2022 Hyaline casts LM Ql (Urine sed) None seen [LPF] 0-[address] [facility] Lipid Panelon 03-11-2022 Cholesterol [Mass/Vol] 208 mg/dL High 140-200 [facility] Comment on above: Order Comment: Comme nt use ER blood Result Comment: Chol less than 200 mg/dl low risk Chol 201-239 mg/dl borderline risk Chol 240 mg/dl and greater high risk Performed By: #### L IPID, TSH3 wRFLX, [id number] #### [facility] [address] [place] [id number] [facility] Cholesterol in HDL [Mass/Vol] 58 mg/dL Normal 35-[address] [facility] Comment on above: Order Comment: Comme nt use ER blood Result Comment: HDL CHOL ATP-III CLASSIFICATION Cardiovascular Risk HDL > or equal to 60 mg/dL LOW HDL < 40 mg/dL HIGH Performed By: #### L IPID, TSH3 wRFLX, [id number] #### [facility] [address] Cholesterol.total/Chol esterol in HDL [Mass ratio] 3.6 {ratio} Normal <5.[address] [facility] Comment on above: Order Comment: Comme nt use ER blood Performed By: #### L IPID, TSH3 wRFLX, [id number] #### [facility] [address] [place] [id number] [facility] LDL Cholesterol,Calculated 120 mg/dL High 0-[address] [facility] Comment on above: Order Comment: Comme nt use ER blood Result Comment: LDL ATP III CLASSIFICATION LDL less than 100 mg/dL Optimal LDL 100-129 mg/dL Near or above optimal LDL 130-159 mg/dL Borderline high LDL 160-189 mg/dL High LDL greater than 189 mg/dL Very high Performed By: #### L IPID, TSH3 wRFLX, [id number] #### [facility] [address] [place] [id number] [place] Triglyceride w/Reflex 152 mg/dL High 35-149 [facility] Comment on above: Order Comment: Comme nt use ER blood Result Comment: TRIG ATP III CLASSIFICATION TRIG less than 150 mg/dL Normal TRIG 150-199 mg/dL Borderline high TRIG 200-500 mg/dL High TRIG greater than 500 mg/dL Very high Standard traceable to the Center for Disease Conrtrol and Prevention (CDC) test method. Performed By: #### L IPID, TSH3 wRFLX, [id number] #### [facility] [address] VLDL CHOLESTEROL 30 mg/dL Normal [facility] Comment on above: Order Comment: Comme nt use ER blood Performed By: #### L IPID, TSH3 wRFLX, [id number] #### [facility] [address] Lymphocytes Auto (Bld) [#/Vo l]Ordered By: Ruby Penn on 03-11-2022 Lymphocytes (Bld) [#/Vol] 3.2 10*3/uL 1.00-4.[address] [facility] Lymphocytes/100 WBC Auto (Bl d)Ordered By: Ruby Penn on 03-11-2022 Lymphocytes/100 WBC (Bld) 31.5 % . [facility] MCH Auto (RBC) [Entitic mass ]Ordered By: Ruby Penn on 03-11-2022 MCH (RBC) [Entitic mass] 30.7 pg 24.7-34.[address] [facility] MCHC Auto (RBC) [Mass/Vol]Or dered By: Ruby Penn on 03-11-2022 MCHC (RBC) [Mass/Vol] 33.0 g/dL 32.0-35.0 [facility] MCV Auto (RBC) [Entitic vol] Ordered By: Ruby Penn on 03-11-2022 MCV (RBC) [Entitic vol] 93.2 fL 80-[address] [facility] Monocytes Auto (Bld) [#/Vol] Ordered By: Ruby Penn on 03-11-2022 Monocytes (Bld) [#/Vol] 0.8 10*3/uL 0.0-0.[address] [facility] Monocytes/100 WBC Auto (Bld) Ordered By: Ruby Penn on 03-11-2022 Monocytes/100 WBC (Bld) 8.2 % . [facility] Neutrophils Auto (Bld) [#/Vo l]Ordered By: Ruby Penn on 03-11-2022 Neutrophils (Bld) [#/Vol] 3.9 10*3/uL 1.8-7.[address] [facility] Neutrophils/100 WBC Auto (Bl d)Ordered By: Ruby Penn on 03-11-2022 Neutrophils/100 WBC (Bld) 38.6 % . [facility] Nitrite Test strip Ql (U)Ord ered By: Ruby Penn on 03-11-2022 Nitrite Ql (U) Negative Negative [facility] No Panel InformationOrdered By: Marco A Zaman on 03-11-2022 25-Hydroxy Vitamin D Total 34.7 ng/mL 30-[address] [facility] Comment on above: VITAMIN D STATUS 25( [place])VITAMIN D RANGE (ng/mL) Deficient <20 Insufficient 20 to <30Sufficient 30 to 100Reference: Monty MF,Hilda NC, Mariajose MARY, et al. Evaluation,treatment, and prevention of vitamin D deficiency; an Endocrine Society clinical practice guideline. JCEM. 2010; 96(7):1911-30. No Panel InformationOrdered By: Ruby Penn on 03-11-2022 Estimated GFR () 43 mL/Min [facility] Comment on above: GFR estimated refere nce range: According to KDOQI guidelines, <60 ml/min/1.73m2 is sufficient to diagnose a patient with chronic kidney disease. Pharmacy Creatinine Clearance (Chem 37.[address] [facility] Platelet Estimate Normal Normal [facility] Platelet Morphology Comment Normal Normal [facility] SARS Antigen (LFIA) [facility] [place] Phencyclidine Screen Ql (U)O rdered By: Ruby Penn on 03-11-2022 Phencyclidine Ql (U) Negative Negative [facility] Platelet mean volume Auto (B ld) [Entitic vol]Ordered By: Ruby Penn on 03-11-2022 Platelet mean volume (Bld) [Entitic vol] 8.8 fL 6.3-10.[address] [facility] Platelets Auto (Bld) [#/Vol] Ordered By: Ruby Penn on 03-11-2022 Platelets (Bld) [#/Vol] 287 10*3/uL 150-[address] [facility] Protein Auto test strip (U) [Mass/Vol]Ordered By: Ruby Penn on 03-11-2022 Protein (U) [Mass/Vol] Negative Negative [facility] Protein [Mass/volume] in Ser um or PlasmaOrdered By: Ruby Penn on 03-11-2022 Protein [Mass/Vol] 7.1 g/dL 6.1-7.[address] [facility] RBC Auto (Bld) [#/Vol]Ordere d By: Ruby Penn on 03-11-2022 RBC (Bld) [#/Vol] 4.38 10*6/uL 3.60-5.00 [facility] [place] RBC morphologyOrdered By: Joseph Penn on 03-11-2022 RBC morphology finding Nom (Bld) Normal [facility] Scan and CBCon 03-11-2022 Basophils (Bld) [#/Vol] 0.1 10*3/uL Normal 0.0-0.[address] [facility] Comment on above: Performed By: #### L IPID, TSH3 wRFLX, [id number] #### [facility] [address] [place] [address] Basophils/100 WBC (Bld) 0.8 % Normal . [facility] Comment on above: Performed By: #### L IPID, TSH3 wRFLX, [id number] #### [facility] [address] [place] [address] [place] Eosinophils (Bld) [#/Vol] 2.1 10*3/uL High 0.0-0.[address] [facility] Comment on above: Performed By: #### L IPID, TSH3 wRFLX, [id number] #### [facility] [address] [place] [address] [place] Eosinophils/100 WBC (Bld) 20.9 % Normal . [facility] Comment on above: Performed By: #### L IPID, TSH3 wRFLX, [id number] #### [address] Erythrocyte distribution width (RBC) [Ratio] 14.3 % Normal 11.9-15.[address] [facility] Comment on above: Performed By: #### L IPID, TSH3 wRFLX, [id number] #### [address] Hematocrit (Bld) [Volume fraction] 40.8 % Normal 34.0-46.[address] [facility] Comment on above: Performed By: #### L IPID, TSH3 wRFLX, [id number] #### [address] Hemoglobin (Bld) [Mass/Vol] 13.5 g/dL Normal 11.8-15.[address] [facility] Comment on above: Performed By: #### L IPID, TSH3 wRFLX, [id number] #### [address] Lymphocytes (Bld) [#/Vol] 3.2 10*3/uL Normal 1.00-4.[address] [facility] Comment on above: Performed By: #### L IPID, TSH3 wRFLX, [id number] #### [address] Lymphocytes/100 WBC (Bld) 31.5 % Normal . [facility] Comment on above: Performed By: #### L IPID, TSH3 wRFLX, [id number] #### [address] MCH (RBC) [Entitic mass] 30.7 pg Normal 24.7-34.[address] [facility] Comment on above: Performed By: #### L IPID, TSH3 wRFLX, [id number] #### [address] MCV (RBC) [Entitic vol] 93.2 fL Normal 80-[address] [facility] Comment on above: Performed By: #### L IPID, TSH3 wRFLX, [id number] #### [address] [place] [address] [place] Mean Corpuscular HGB Conc 33.0 g/dL Normal 32.0-35.[address] [facility] Comment on above: Performed By: #### L IPID, TSH3 wRFLX, [id number] #### [address] Monocytes (Bld) [#/Vol] 0.8 10*3/uL Normal 0.0-0.[address] [facility] Comment on above: Performed By: #### L IPID, TSH3 wRFLX, [id number] #### [address] Monocytes/100 WBC (Bld) 8.2 % Normal . [facility] Comment on above: Performed By: #### L IPID, TSH3 wRFLX, [id number] #### [address] Neutrophils (Bld) [#/Vol] 3.9 10*3/uL Normal 1.8-7.[address] [facility] Comment on above: Performed By: #### L IPID, TSH3 wRFLX, [id number] #### [address] Neutrophils/100 WBC (Bld) 38.6 % Normal . [facility] Comment on above: Performed By: #### L IPID, TSH3 wRFLX, [id number] #### [place] [address] [place] Nucleated RBC/100 WBC (Bld) [Ratio] 0.1 % Normal 0-0.[address] [facility] Comment on above: Performed By: #### L IPID, TSH3 wRFLX, [id number] #### [address] Platelet Estimate Normal Normal Normal [facility] Comment on above: Performed By: #### L IPID, TSH3 wRFLX, [id number] #### [address] Platelet mean volume (Bld) [Entitic vol] 8.8 fL Normal 6.3-10.[address] [facility] Comment on above: Performed By: #### L IPID, TSH3 wRFLX, [id number] #### [address] Platelet Morphology Normal Normal Normal [facility] [place] Comment on above: Result Comment: PERF ORMED BY: [place] [address] PATHOLOGIST COMMUNITY DEVELOPMENT COORDINATOR KRISTI TURNER M.D. Performed By: #### L IPID, TSH3 wRFLX, [id number] #### [address] Platelets (Bld) [#/Vol] 287 10*3/uL Normal 150-[address] [facility] Comment on above: Performed By: #### L IPID, TSH3 wRFLX, [id number] #### [address] RBC (Bld) [#/Vol] 4.38 10*6/uL Normal 3.60-5.00 [facility] [place] Comment on above: Performed By: #### L IPID, TSH3 wRFLX, [id number] #### [address] RBC morphology finding Nom (Bld) Normal Normal [facility] Comment on above: Performed By: #### L IPID, TSH3 wRFLX, [id number] #### [address] WBC (Bld) [#/Vol] 10.1 10*3/uL Normal 4.5-11.0 [facility] [place] Comment on above: Performed By: #### L IPID, TSH3 wRFLX, [id number] #### [address] Serum or plasma alanine arora otransferase measurement without P-5'-P (enzymatic activiOrdered By: Ruby Penn on 03-11-2022 ALT No additional P-5'-P [Catalytic activity/Vol] 22 U/L 10-[address] [facility] Serum or plasma albumin/glob ulin mass ratioOrdered By: Ruby Penn on 03-11-2022 Albumin/Globulin [Mass ratio] 1.2 {ratio} [facility] Serum or plasma alkaline lashaun sphatase measurement (enzymatic activity/volume)Ordered By: Ruby Penn on 03-11-2022 ALP [Catalytic activity/Vol] 45 U/L 32-[address] [facility] Serum or plasma anion gap de terminationOrdered By: Ruby Penn on 03-11-2022 Anion gap [Moles/Vol] 17.0 mmol/L 6.0-15.0 Fi [facility] Serum or plasma aspartate am inotransferase measurement (enzymatic activity/volume)Ordered By: Ruby Penn on 03-11-2022 AST [Catalytic activity/Vol] 21 U/L 10-[address] [facility] Serum or plasma calcium sunil urement (mass/volume)Ordered By: Ruby Penn on 03-11-2022 Calcium [Mass/Vol] 10.1 mg/dL 8.2-10.[address] [facility] Serum or plasma chloride leo surement (moles/volume)Ordered By: Ruby Penn on 03-11-2022 Chloride [Moles/Vol] 102 mmol/L 95-114 [facility] Serum or plasma ethanol sunil urement (mass/volume)Ordered By: Ruby Penn on 03-11-2022 Ethanol [Mass/Vol] mg/dL [facility] Ethanol [Mass/Vol] TNP [facility] Comment on above: Test not performed Serum or plasma glucose sunil urement (mass/volume)Ordered By: Ruby Penn on 03-11-2022 Glucose [Mass/Vol] 95 mg/dL 70-[address] [facility] Comment on above: ADA recommended refe rence rangeRandom Glucose Reference Range is dependent on time and content of last meal. Glucose of more than 200 mg/dL in a nonstressed, ambulatory subject supports the diagnosis of Diabetes Mellitus. Serum or plasma high density lipoprotein (HDL) cholesterol measurementOrdered By: Marco A Zaman on 03-11-2022 Cholesterol in HDL [Mass/Vol] 58 mg/dL 35-[address] [facility] Comment on above: HDL CHOL ATP-III CLA SSIFICATION Cardiovascular RiskHDL > or equal to 60 mg/dL LOWHDL < 40 mg/dL HIGH Serum or plasma potassium me asurement (moles/volume)Ordered By: Ruby Penn on 03-11-2022 Potassium [Moles/Vol] 3.9 mmol/L 3.5-5.1 [facility] Serum or plasma sodium measu rement (moles/volume)Ordered By: Ruby Penn on 03-11-2022 Sodium [Moles/Vol] 140 mmol/L 136-[address] [facility] Serum or plasma total biliru bin measurement (mass/volume)Ordered By: Ruby Penn on 03-11-2022 Bilirubin [Mass/Vol] 0.8 mg/dL 0.3-1.2 [facility] Serum or plasma total carbon dioxide measurement (moles/volume)Ordered By: Ruby Penn on 03-11-2022 CO2 [Moles/Vol] 24.9 mmol/L 22.0-30.0 [facility] Serum or plasma total choles terol/high density lipoprotein (HDL) cholesterol mass ratOrdered By: Marco A Zaman on 03-11-2022 Cholesterol.total/Chol esterol in HDL [Mass ratio] 3.6 {ratio} <5.[address] [facility] Serum or plasma urea nitroge n measurement (mass/volume)Ordered By: Ruby Penn on 03-11-2022 Urea nitrogen [Mass/Vol] 30 mg/dL 9- [facility] Demetria Ag Negativeon 03-11-20 Demetria Ag Negative Negative Normal Negative [facility] Comment on above: Result Comment: This is a duplicate Demetria SARS Antigen (MERARY) result to be used for statistical tracking purpose only. PERFORMED BY: [facility] [address] [place] [address] PATHOLOGIST COMMUNITY DEVELOPMENT COORDINATOR KRISTI TURNER M.D. Performed By: #### L IPID, TSH3 wRFLX, [id number] #### [facility] [address] [place] [id number] [facility] Specific gravity Auto test s trip (U) [Rel density]Ordered By: Ruby Penn on 03-11-2022 Specific gravity (U) [Rel density] 1.007 1.001-1.[address] [facility] Squamous epithelial cells de tection in urine sediment by light microscopyOrdered By: Ruby Penn on 03-11-2022 Epithelial cells.squamous LM Ql (Urine sed) 0-1 [HPF] 0-[address] [facility] TSH DL <= 0.005 mIU/L QnOrde red By: Marco A Zaman on 03-11-2022 TSH Qn 1.67 m[IU]/L 0.45-5.[address] [facility] Thyroid Stim Hormone w/Rflxo n 03-11-2022 Thyroid Stim Hormone w/Rflx 1.67 u[iU]/mL Normal 0.45-5.[address] [facility] Comment on above: Order Comment: Comme nt use ER blood Performed By: #### L IPID, TSH3 wRFLX, [id number] #### [facility] [address] [place] [address] Triglyceride [Mass/volume] i n Serum or PlasmaOrdered By: Marco A Zaman on 03-11-2022 Triglyceride [Mass/Vol] 152 mg/dL 35-[address] [facility] Comment on above: TRIG ATP III CLASSIF ICATIONTRIG less than 150 mg/dL NormalTRIG 150-199 mg/dL Borderline highTRIG 200-500 mg/dL High TRIG greater than 500 mg/dL Very highStandard traceable to the Center for Disease Conrtrol and Prevention (CDC) test method. Urine Cultureon 03-11-2022 Bacteria identified Cx Nom (U) 25,000 colonies/ml mixed bacterial skin contaminants 2 Days PERFORMED BY: [place] [address] PATHOLOGIST COMMUNITY DEVELOPMENT COORDINATOR KRISTI TURNER M.D. Normal [facility] Comment on above: Performed By: #### C UU, ADDONUAPLUS, UHCG, URDS #### [facility] [address] [place] [address] [facility] Urine bacteria detection by automated methodOrdered By: Ruby Penn on 03-11-2022 Bacteria Auto Ql (U) None seen None Seen [facility] Urine clarity by refractomet ry automatedOrdered By: Ruby Penn on 03-11-2022 Clarity Refractometry automated (U) Clear Clear [facility] Urine cocaine detectionOrder ed By: Ruby Penn on 03-11-2022 Cocaine Ql (U) Negative Negative [facility] Urine glucose measurement by automated test strip (mass/volume)Ordered By: Rbuy Penn on 03-11-2022 Glucose Auto test strip (U) [Mass/Vol] Normal mg/dL Normal [facility] Urine hemoglobin detection b y automated test stripOrdered By: Ruby Penn on 03-11-2022 Hemoglobin Auto test strip Ql (U) Negative Negative [facility] Urine leukocyte esterase det ection by automated test stripOrdered By: Ruby Penn on 03-11-2022 Leukocyte esterase Auto test strip Ql (U) 3+ Negative [facility] Urobilinogen Auto test strip (U) [Mass/Vol]Ordered By: Ruby Penn on 03-11-2022 Urobilinogen (U) [Mass/Vol] Normal mg/dL Normal [facility] Vitamin D 25 Hydroxy Totalon 03-11-2022 Vitamin D 25 Hydroxy Total 34.7 ng/mL Normal 30-[address] [facility] Comment on above: Order Comment: Comme nt use ER blood Result Comment: JUAN MIN D STATUS 25(OH)VITAMIN D RANGE (ng/mL) Deficient <20 Insufficient 20 to <30 Sufficient 30 to 100 Reference: Monty MF,Hilda NC, Mariajose MARY, et al. Evaluation,treatment, and prevention of vitamin D deficiency; an Endocrine Society clinical practice guideline. JCEM. 2010; 96(7):1911-30. PERFORMED BY: [place] [id number] PATHOLOGIST COMMUNITY DEVELOPMENT COORDINATOR KRISTI TURNER M.D. Performed By: #### L IPID, TSH3 wRFLX, [id number] #### [facility] [address] pH Auto test strip (U)Ordere d By: Ruby Penn on 03-11-2022 pH (U) 6.5 [pH] 5.0-9.[address] [facility] RENAL FUNCTION PANELon 01-22 Albumin [Mass/Vol] 3.5 g/dL Normal 3.4-5.0 [facility] Comment on above: Performed By: #### R ENAL #### [facility] [address] [place] [address] [address] Emanuel Degroot Calcium [Mass/Vol] 9.5 mg/dL Normal 8.5-10.1 [facility] Comment on above: Performed By: #### R ENAL #### [facility] [address] [place] [address] [address] Emanuel Degroot Chloride [Moles/Vol] 107 mmol/L Normal 98-107 [facility] Comment on above: Performed By: #### R ENAL #### [facility] [address] [place] [address] [address] Emanuel Degroot CO2 [Moles/Vol] 28.6 mmol/L Normal 21.0-32.0 [facility] Comment on above: Performed By: #### R ENAL #### [facility] [address] [place] [address] [address] Emanuel Degroot Creatinine [Mass/Vol] 1.35 mg/dL Critically high 0.55-1.02 [facility] Comment on above: Performed By: #### R ENAL #### [facility] [address] [place] [address] [address] Emanuel Degroot EGFR-AF CENTRAL AFRICAN 48 mL/min/1.73m2 Critically low >=60 [facility] Comment on above: Performed By: #### R ENAL #### [facility] [address] [place] [address] [address] Emanuel Degroot EGFR-NON AF CENTRAL AFRICAN 40 mL/min/1.73m2 Critically low >=60 [facility] Comment on above: Performed By: #### R ENAL #### [facility] [address] [place] [address] [address] Emanuel Degroot Glucose [Mass/Vol] 141 mg/dL Critically high 74-106 T [facility] Comment on above: Performed By: #### R ENAL #### [facility] [address] [place] [address] [address] Emanuel Degroot Phosphate [Mass/Vol] 3.8 mg/dL Normal 2.6-4.7 [facility] Comment on above: Performed By: #### R ENAL #### [facility] [address] [place] [address] [address] Emanuel Degroot Potassium [Moles/Vol] 3.8 mmol/L Normal 3.5-5.1 [facility] Comment on above: Performed By: #### R ENAL #### [facility] [address] [place] [address] Dr. Emanuel Degroot Sodium [Moles/Vol] 143 mmol/L Normal 136-145 [facility] Comment on above: Performed By: #### R ENAL #### [facility] [address] [place] [address] [address] Emanuel Degroot Urea nitrogen [Mass/Vol] 29.0 mg/dL Critically high 7.0-18.0 [facility] Comment on above: Performed By: #### R ENAL #### [facility] [address] [place] [address] Dr. Emanuel Degroot XR ANKLE RT MIN [...] MIR HENRY Date: 2021-12-07 18:21 Normal [facility] LITHIUMon 12-06-2021 [place] (Eskalith(R)), Serum <0.1 Critically low 0.5-1.2 [facility] Comment on above: Result Comment: Plas ma concentration of 0.5 - 0.8 mmol/L are advised for long-term use; concentrations of up to 1.2 mmol/L may be necessary during acute treatment. Verified by repeat analysis Detection Limit = 0.1 <0.1 indicates None Detected Performed By: #### L ITHIUM #### [facility] [address] [place], [place] [address] Dr. Emanuel Degroot LIPID PROFILEon 12-05-2021 CHOL-HDL RATIO NORM SEE BELOW Normal [facility] Comment on above: Result Comment: 3.3 - 4.4 LOW RISK 4.4 - 7.1 AVERAGE RISK 7.1 - 11.0 MODERATE RISK >11.0 HIGH RISK Performed By: #### L IPID, CMP, TSH ####[facility] [address] [place], [place] [address]Gq. Emanuel Degroot Cholesterol [Mass/Vol] 264 mg/dL Critically high <=200 [facility] Comment on above: Performed By: #### L IPID, CMP, TSH ####[facility] [address] [place], [place] [address]Vg. Emanuel Degroot Cholesterol in HDL [Mass/Vol] 76 mg/dL Critically high 40-60 [facility] Comment on above: Performed By: #### L IPID, CMP, TSH ####[facility] [address] [place], [place] [address]Te. Emanuel Degroot Cholesterol in LDL [Mass/Vol] 171.2 mg/dL Normal [facility] Comment on above: Performed By: #### L IPID, CMP, TSH ####[facility] [address] [place], [place] [address]Ll. Emanuel Degroot Cholesterol.total/Chol esterol in HDL [Mass ratio] 3.5 {ratio} Normal [facility] Comment on above: Performed By: #### L IPID, CMP, TSH ####[facility] [address] [place], [place] [address]Yf. Emanuel Degroot HDL NORMAL > or = 60 mg/dl - LO W CARDIOVASCULAR RISK <40 mg/dl - HIGH CARDIOVASCULAR RISK Normal [facility] Comment on above: Performed By: #### L IPID, CMP, TSH ####[facility] [address] [place] [id number]. Emanuel Degroot LDL CALC NORMAL SEE BELOW Normal [facility] Comment on above: Result Comment: <100 mg/dl OPTIMAL 100 - 129 mg/dl NEAR OR ABOVE OPTIMAL 130 - 159 mg/dl BORDERLINE HIGH 160 - 189 mg/dl HIGH >190 mg/dl VERY HIGH Performed By: #### L IPID, CMP, TSH ####[facility] [address] [place], [place] [address]EiAleah Degroot Triglyceride [Mass/Vol] 84 mg/dL Normal <=150 [facility] Comment on above: Performed By: #### L IPID, CMP, TSH ####[facility] [address] [place] [id number] Degroot VLDL CALC 16.8 mg/dL Normal [facility] Comment on above: Performed By: #### L IPID, CMP, TSH ####[facility] [address] [place] [id number]. Emanuel Degroot PROF 14(COMP METB)on 022 Albumin [Mass/Vol] 3.8 g/dL Normal 3.4-5.0 [facility] Comment on above: Performed By: #### L IPID, CMP, TSH #### [facility] [address] [place] [address] [address] Emanuel Degroot Albumin/Globulin [Mass ratio] 1.1 {ratio} Normal [facility] Comment on above: Performed By: #### L IPID, CMP, TSH #### [facility] [address] [place] [address] [address] Emanuel Degroot ALP [Catalytic activity/Vol] 32 U/L Critically low 46-116 [facility] Comment on above: Performed By: #### L IPID, CMP, TSH #### [facility] [address] [place] [address] [address] Emanuel Degroot ALT [Catalytic activity/Vol] 28 U/L Normal 14-59 [facility] Comment on above: Performed By: #### L IPID, CMP, TSH #### [facility] [address] [place] [address] [address] Emanuel Degroot Anion gap [Moles/Vol] 11.0 mmol/L Normal Th [facility] Comment on above: Performed By: #### L IPID, CMP, TSH #### [facility] [address] [place] [address] [address] Emanuel Degroot AST [Catalytic activity/Vol] 16 U/L Normal 15-37 [facility] Comment on above: Performed By: #### L IPID, CMP, TSH #### [facility] [address] [place] [address] [address] Emanuel Degroot Bilirubin [Mass/Vol] 0.3 mg/dL Normal 0.2-1.0 [facility] Comment on above: Performed By: #### L IPID, CMP, TSH #### [facility] [address] [place] [address] [address] Emanuel Degroot Calcium [Mass/Vol] 9.7 mg/dL Normal 8.5-10.1 [facility] Comment on above: Performed By: #### L IPID, CMP, TSH #### [facility] [address] [place] [address] [address] Emanuel Degroot Chloride [Moles/Vol] 105 mmol/L Normal 98-107 [facility] Comment on above: Performed By: #### L IPID, CMP, TSH #### [facility] [address] [place] [address] [address] Emanuel Degroot CO2 [Moles/Vol] 30.4 mmol/L Normal 21.0-32.0 [facility] Comment on above: Performed By: #### L IPID, CMP, TSH #### [facility] [address] [place] [address] Dr. Emanuel Degroot Creatinine [Mass/Vol] 1.40 mg/dL Critically high 0.55-1.02 [facility] Comment on above: Performed By: #### L IPID, CMP, TSH #### [facility] [address] [place] [address] [address] Emanuel Degroot EGFR-AF CENTRAL AFRICAN 46 mL/min/1.73m2 Critically low >=60 [facility] Comment on above: Performed By: #### L IPID CMP, TSH #### [facility] [address] [place] [address] [address] Emanuel Degroot EGFR-NON AF CENTRAL AFRICAN 38 mL/min/1.73m2 Critically low >=60 [facility] Comment on above: Performed By: #### L IPID, CMP, TSH #### [facility] [address] [address] [address] Emanuel Degroot Globulin (S) [Mass/Vol] 3.6 g/dL Normal [facility] Comment on above: Performed By: #### L IPID CMP, TSH #### [facility] [address] [place] [address] Dr. Emanuel Degroot Glucose [Mass/Vol] 98 mg/dL Normal 74-106 [facility] Comment on above: Performed By: #### L IPID CMP, TSH #### [facility] [address] [place] [address] Dr. Emanuel Degroot Potassium [Moles/Vol] 4.4 mmol/L Normal 3.5-5.1 [facility] Comment on above: Performed By: #### L IPID CMP, TSH #### [facility] [address] [place] [address] Dr. Emanuel Degroot Protein [Mass/Vol] 7.4 g/dL Normal 6.4-8.2 [facility] Comment on above: Performed By: #### L IPID, CMP, TSH #### [facility] [address] [address] [address] Emanuel Degroot Sodium [Moles/Vol] 142 mmol/L Normal 136-145 [facility] Comment on above: Performed By: #### L IPID CMP, TSH #### [facility] [address] [address] [address] Emanuel Degroot Urea nitrogen [Mass/Vol] 25.0 mg/dL Critically high 7.0-18.0 [facility] Comment on above: Performed By: #### L IPID, CMP, TSH #### [facility] [address] [address] [address] Emanuel Degroot Urea nitrogen/Creatinine [Mass ratio] 17.9 mg/mg Normal [facility] Comment on above: Performed By: #### L IPID, CMP, TSH #### [facility] [address] [address] [address] Emanuel Degroot TSHon 12-05-2021 TSH 1.960 uIU/mL Normal 0.358-3.74 0 [facility] Comment on above: Performed By: #### L IPID, CMP, TSH ####[facility] [address] [address]Dr. Emanuel Degroot PTH INTACTon 09-22-2021 PTH, Intact 103 pg/mL Critically high 15-65 [facility] Comment on above: Performed By: #### P THINT ####[facility] [address] [place], [place] [address]DrAleah Degroot HEMOGRAM AND PLATELon 2021 Hematocrit (Bld) [Volume fraction] 37.8 % Normal 36.0-48.0 [facility] Comment on above: Performed By: #### H H ####[facility] [address] [address]DrAleah Degroot Hemoglobin (Bld) [Mass/Vol] 11.8 g/dL Critically low 12.0-16.0 [facility] Comment on above: Performed By: #### H H ####[facility] [address] [address]DrAleah Degroot MCH (RBC) [Entitic mass] 31.7 pg Normal 26.7-34.0 [facility] Comment on above: Performed By: #### H H ####[facility] [address] [address]Dr. Emanuel Degroot MCHC (RBC) [Mass/Vol] 31.2 g/dL Normal 29.9-35.2 [facility] Comment on above: Performed By: #### H H ####[facility] [address] [place], [place] [address]Qa. Emanuel Degroot MCV (RBC) [Entitic vol] 101.6 fL Critically high 81.0-99.0 [facility] Comment on above: Performed By: #### H H ####[facility] [address] [place], [place] [address]Uh. Emanuel Degroot PLT 237 103/ul Normal 150-450 [facility] Comment on above: Performed By: #### H H ####[facility] [address] [id number]. Emanuel Degroot RBC 3.72 106/ul Critically low 4.20-5.40 [facility] Comment on above: Performed By: #### H H ####[facility] [address] [id number] Degroot WBC 7.8 103/ul Normal 4.0-11.0 [facility] Comment on above: Performed By: #### H H ####[facility] [address] [id number] Degroot MAGNESIUMon 09-21-2021 Magnesium [Mass/Vol] 2.4 mg/dL Critically high 1.6-2.3 [facility] Comment on above: Performed By: #### R REANNA, MG #### [facility] [address] [address] [address] Emanuel Degroot RENAL FUNCTION PANELon 09-21 Albumin [Mass/Vol] 3.5 g/dL Normal 3.4-5.0 [facility] Comment on above: Performed By: #### R ENOSKAR, MG #### [facility] [address] [address] [address] Emanuel Degroot Calcium [Mass/Vol] 9.4 mg/dL Normal 8.5-10.1 [facility] Comment on above: Performed By: #### R ENOSKAR, MG #### [facility] [address] [address] [address] Emanuel Degroot Chloride [Moles/Vol] 104 mmol/L Normal 98-107 [facility] Comment on above: Performed By: #### R ENAL, MG #### [facility] [address] [place] [address] Dr. Emanuel Degroot CO2 [Moles/Vol] 28.4 mmol/L Normal 22.0-30.0 [facility] Comment on above: Performed By: #### R ENAL, MG #### [facility] [address] [place] [address] Dr. Emanuel Degroot Creatinine [Mass/Vol] 1.58 mg/dL Critically high 0.52-1.04 [facility] Comment on above: Performed By: #### R ENAL, MG #### [facility] [address] [place] [address] Dr. Emanuel Degroot EGFR-AF CENTRAL AFRICAN 40 mL/min/1.73m2 Critically low >=60 [facility] Comment on above: Performed By: #### R ENAL, MG #### [facility] [address] [place] [address] Dr. Emanuel Degroot EGFR-NON AF CENTRAL AFRICAN 33 mL/min/1.73m2 Critically low >=60 [facility] Comment on above: Performed By: #### R ENAL, MG #### [facility] [address] [place] [address] Dr. Emanuel Degroot Glucose [Mass/Vol] 83 mg/dL Normal 74-106 [facility] Comment on above: Performed By: #### R ENAL, MG #### [facility] [address] [place] [address] Dr. Emanuel Degroot Phosphate [Mass/Vol] 4.4 mg/dL Normal 2.5-4.5 [facility] Comment on above: Performed By: #### R ENAL, MG #### [facility] [address] [place] [address] Dr. Emanuel Degroot Potassium [Moles/Vol] 3.9 mmol/L Normal 3.4-5.0 [facility] Comment on above: Performed By: #### R ENAL, MG #### [facility] [address] [place] [address] Dr. Emanuel Degroot Sodium [Moles/Vol] 139 mmol/L Normal 137-145 [facility] Comment on above: Performed By: #### R ENOSKAR, MG #### [facility] [address] [place] [address] Dr. Emanuel Degroot Urea nitrogen [Mass/Vol] 28.0 mg/dL Critically high 7.0-18.0 [facility] Comment on above: Performed By: #### R ENOSKAR, MG #### [facility] [address] [place] [address] Dr. Emanuel Degroot UA RANDOM W/MICROSCOPICon BACTERIA NONE SEEN Normal NONE SEEN [facility] Comment on above: Performed By: #### U AMIC #### [facility] [address] [place] [address] Dr. Emanuel Degroot Bilirubin Ql (U) Negative Normal NEGATIVE [facility] Comment on above: Performed By: #### U AMIC #### [facility] [address] [place] [address] Dr. Emanuel Degroot CAST NONE SEEN Normal NONE SEEN [facility] Comment on above: Performed By: #### U AMIC #### [facility] [address] [place] [address] Dr. Emanuel Degroot Clarity (U) CLEAR Normal CLEAR [facility] Comment on above: Performed By: #### U AMIC #### [facility] [address] [place] [address] Dr. Emanuel Degroot Color (U) LT. YELLOW Normal YELLOW [facility] Comment on above: Performed By: #### U AMIC #### [facility] [address] [place] [address] Dr. Emanuel Degroot Crystals LM Nom (Urine sed) NONE SEEN Normal NONE SEEN [facility] Comment on above: Performed By: #### U AMIC #### [facility] [address] [place] [address] Dr. Emanuel Degroot Epithelial cells LM Ql (Urine sed) MODERATE Abnormal NONE SEEN /RARE [facility] Comment on above: Performed By: #### U AMIC #### [facility] [address] [place] [address] Dr. Emanuel Degroot Glucose Ql (U) Negative Normal NEGATIVE [facility] Comment on above: Performed By: #### U AMIC #### [facility] [address] [address] [address] Emanuel Degroot Hemoglobin Ql (U) Negative Normal NEGATIVE [facility] Comment on above: Performed By: #### U AMIC #### [facility] [address] [address] [address] Emanuel Degroot Ketones Ql (U) Negative Normal NEGATIVE [facility] Comment on above: Performed By: #### U AMIC #### [facility] [address] [address] [address] Emanuel Degroot LEUKOCYTES SMALL Abnormal NEGATIVE [facility] Comment on above: Performed By: #### U AMIC #### [facility] [address] [place] [address] Dr. Emanuel Degroot MUCOUS NONE SEEN Normal NONE SEEN [facility] Comment on above: Performed By: #### U AMIC #### [facility] [address] [place] [address] Dr. Emanuel Degroot Nitrite Ql (U) Negative Normal NEGATIVE [facility] Comment on above: Performed By: #### U AMIC #### [facility] [address] [place] [address] Dr. Emanuel Degroot pH (U) 6.5 [pH] Normal 5-9 [facility] Comment on above: Performed By: #### U AMIC #### [facility] [address] [place] [address] Dr. Emanuel Degroot RBC NONE SEEN Abnormal 0-2 [facility] Comment on above: Performed By: #### U AMIC #### [facility] [address] [address] [address] Emanuel Degroot SPEC GRAVITY 1.010 Normal 1.005-<=1. 025 [facility] Comment on above: Performed By: #### U AMIC #### [facility] [address] [place] [address] Dr. Emanuel Degroot UA PROTEIN Negative Normal NEGATIVE/ TRACE [facility] Comment on above: Performed By: #### U AMIC #### [facility] [address] [address] [address] Emanuel Degroot Urobilinogen Qn (U) 0.2 {Destiny'U}/dL Normal 0.2 - 1. 0 [facility] Comment on above: Performed By: #### U AMIC #### [facility] [address] [address] [address] Emanuel Degroot WBC 2-5 Abnormal NONE SEEN [facility] Comment on above: Performed By: #### U AMIC #### [facility] [address] [address] [address] Emanuel Degroot URINE T PROTEIN CREAT RATIOo n 09-21-2021 UR PROT CREAT RAT 0.19 Normal [facility] Comment on above: Result Comment: unab le to calculate Performed By: #### U RTPCR ####[facility] [address] [place], [place] [address]DrAleah Degroot UR TOTAL PROTEIN <5.0 Normal <=12.0 [facility] Comment on above: Performed By: #### U RTPCR ####[facility] [address] [place], [place] [address]Dr. Emanuel Degroot URINE CREAT 26.13 mg/dL Normal 20.00-300. 00 [facility] Comment on above: Performed By: #### U RTPCR ####[facility] [address] [place], [place] [address]Dr. Emanuel Degroot VITAMIN D 25 OHon 09-21-2021 VIT D 25-OH 43.1 ng/mL Normal [facility] Comment on above: Performed By: #### V ITAD ####[facility] [address] [place], [place] [address]DrAleah Degroot VIT D RANGES SEE BELOW Normal [facility] Comment on above: Result Comment: <20 ng/mL Vit D deficient 20 - <30 ng/mL Vit D insufficient 30 - 100 ng/mL Vit D sufficient >100 ng/mL Potential Toxicity Performed By: #### V ITAD ####[facility] [address] [place] [address]PxAleah Degroot XR knee LT 4V*on 05-06-2021 XR knee LT 4V* [facility] [place] [address] [place], [place] [id number] XRay Report Signed Patient: Nola Waller MR#: [id number] : 1960 Acct:[id number] Age/Sex: 60 / F ADM Date: 05/06/21 Loc: XDUCLY Room: Type: [facility] Attending Dr: Geneva MONAE Ordering Provider: DOV [...] Emy Wang M.D.05/06/2021 4:41 PM Dictation Location: [address] [address] Transcribed By: [facility] 05/06/21 1641 Dictated By: Emy Wang MD 05/06/21 1639 Signed By: 05/06/21 1641 Normal [facility] Video Visit - Telehealtho n 04-22-2020 Video Visit - Telehealth Chief Complaint Medication Recheck Subjective Interval History/HPI This visit was conducted via two-way, real-time interactive video communications from my office using [facility] due to the restrictions of the COVID-19 pandemic. No physical exam was conducted other than those areas of the body visible to telecommunications with the patient located at [address] [place] [phone], with spouse in attendance. If it is [...] manic or depressive mood symptoms present. No episcopalian preoccupation or any other psychotic symptoms present. [...] appears stated age Behavior/Motor Activity: , cooperative Speech: Normal rate Affect: reserved Mood:'okay' Thought [...] 4. High risk medication use (Z79.899: Other fdc (current) drug therapy) General Treatment Plan Pharmacological [...] Juan ADAMES MD In 3 months [address] [place] [address]- Additional Instructions: Other Information OARRS Report Reviewed Problem List/Past Medical History Ongoing Anxiety Bipolar I disorder, current or most recent episode depressed, in partial remission with mood-congruent psychotic features Chronic kidney disease (CKD), stage III (moderate) Downbeat nystagmus High risk medication use Historical No qualifying data Procedure/Surgical History History of ectopic , Knee arthroplasty, Rotator cuff arthropathy of right shoulder, TMJ syndrome, Tonsillectomy, [place] tooth. Medications clonazepam 1 mg Tab, 1 [...] inactivated - Not Given Patient Refuses Normal [facility] Comment on above: Result Comment: Ani maddialex Signed By: MELINA DIAZ, Juan\.br\Date and Time [...] caregiver questions about your prescriptions and any tjox-rgh-jvvzueh medications, vitamins, herbal or dietary supplements that [...] needed. ? Do not give your child zoey-djo-rutwtwr cough and cold medicines if they are under 2 years of age. ? Avoid giving your child or teenager Aspirin or Aspirin-containing products. Document Released: 09/07/2011 Document Revised: 08/14/2012 Document Reviewed: 09/07/2011 ExitCare? Patient Information ?2013 [employer]. [facility] Video Visit - Telehealtho n 02-07-2020 Video Visit - Telehealth Chief Complaint Tele Visit Subjective Interval History/HPI This visit was conducted via two-way, real-time interactive video communications from my office using [facility] due to the restrictions of the COVID-19 pandemic. No physical exam was conducted other than those areas of the body visible to telecommunications with the patient located at [address] [place], [place] [phone], with spouse in attendance. If it is [...] 3. High risk medication use (Z79.899: Other fdc (current) drug therapy) Orders: clonazepam, 1 mg = 1 tab(s), Oral, Once a day (at bedtime), f41.1, # 30 tab(s), Refills(s) 1, Pharmacy: [facility] #[id number], 158, cm, 01/18/20 12:40:00 EDT, Height/Length Dosing, 70.3, kg, 01/18/20 12:40:00 EDT, Weight Dosing lithium, 900 mg = 2 tab(s), Oral, Bedtime, # 60 tab(s), Refills(s) 5, Pharmacy: [facility] #[id number], 158, cm, 01/18/20 12:40:00 EDT, Height/Length Dosing, 70.3, kg, 01/18/20 12:40:00 EDT, Weight Dosing olanzapine, 10 mg = 1 tab(s), Oral, Bedtime, # 30 tab(s), Refills(s) 5, Pharmacy: [facility] #[id number], 158, cm, 01/18/20 12:40:00 EDT, Height/Length Dosing, [...] Juan ADAMES MD In 6 weeks [address] [place] [address]- Additional Instructions: Other Information OARRS [...] arthropathy of right shoulder, TMJ syndrome, Tonsillectomy, [place] tooth. Medications clonazepam 1 mg Tab, 1 [...] - Not Given Patient Refuses Normal [facility] Comment on above: Result Comment: Elec [...] caregiver questions about your prescriptions and any trvm-ccl-bwbjgbp medications, vitamins, herbal or dietary supplements that [...] needed. ? Do not give your child cbjj-ayn-hzjwgav cough and cold medicines if they are under 2 years of age. ? Avoid giving your child or teenager Aspirin or Aspirin-containing products. Document Released: 09/07/2011 Document Revised: 08/14/2012 Document Reviewed: 09/07/2011 ExitCare? Patient Information ?2013 [employer]. Normal [facility] CT Abdomen/Pelvis w/ Contras ton 08-18-2019 [...] Oral contrast amount in ml's: 0 Normal [facility] Valproic Acidon 11-20-2017 Valproic Acid 69 ug/mL Normal 50-125 [facility] Comment on above: Performed By: #### C NELY SPRING ####[facility] [place] [address] #### GLYHGB ####[facility] [place] [address] Date last dose, [id number] Normal [facility] Comment on above: Performed By: #### C DP, CP ####[address] [address] #### GLYHGB ####[address] [address] Dose amount 1000MG Normal [facility] Comment on above: Performed By: #### C DP, CP ####[address] [address] #### GLYHGB ####[address] [address] Time last dose, 0835 Normal [facility] Comment on above: Result Comment: Perf ormed at [address] [address] Performed By: #### C DP, CP ####[address] [address] #### GLYHGB ####[address] [address] CBC with Diffon 11-15-2017 Abs. Basophil 0.00 k/uL Normal 0.0-0.2 [facility] Comment on above: Result Comment: Perf ormed at [address] [place] [address] Performed By: #### C DP, CP ####[address] [address] Abs.Neutrophil (Seg) 3.40 k/uL Normal 1.3-9.1 [facility] Comment on above: Performed By: #### C DP, CP ####[address] [address] Basophils/100 WBC Auto (Bld) 1 % Normal 0-2 [facility] Comment on above: Performed By: #### C DP, CP ####[facility] [place] [address] Eosinophils 0.10 10*3/uL Normal 0.0-0.4 [facility] Comment on above: Performed By: #### C DP, CP ####[facility] [place] [address] Eosinophils/100 leukocytes 1 % Normal 0-4 [facility] Comment on above: Performed By: #### C DP, CP ####[facility] [place] [address] Erythrocyte distribution width Auto Ratio (RBC) 13.7 % Normal 11.5-14.9 [facility] Comment on above: Performed By: #### C DP, CP ####[facility] [place] [address] Erythrocytes (RBC) 4.24 10*6/uL Normal 4.0-5.2 [facility] Comment on above: Performed By: #### C DP, CP ####[facility] [place] [address] Hematocrit (HCT) 40.7 % Normal 36-46 [facility] Comment on above: Performed By: #### C DP, CP ####[facility] [place] [address] Hemoglobin mass conc (Bld) 13.8 g/dL Normal 12.0-16.0 [facility] Comment on above: Performed By: #### C DP, CP ####[facility] [place] [address] Lymphocytes 1.70 10*3/uL Normal 1.0-4.8 [facility] Comment on above: Performed By: #### C DP, CP ####[facility] [facility] [place] [address] Lymphocytes/100 leukocytes 28 % Normal 24-44 [facility] Comment on above: Performed By: #### C DP, CP ####[facility] [facility] [place] [address] MCH 32.6 pg Normal 26-34 [facility] Comment on above: Performed By: #### C DP, CP ####[facility] [place] [address] MCHC mass conc (RBC) 34.0 g/dL Normal 31-37 [facility] Comment on above: Performed By: #### C DP, CP ####[facility] [facility] [place] [address] MCV 95.9 fL Normal 80-100 [facility] Comment on above: Performed By: #### C DP, CP ####[facility] [place] [address] Monocytes 0.70 10*3/uL Normal 0.1-1.3 [facility] Comment on above: Performed By: #### C DP, CP ####[facility] [facility] [place] [address] Monocytes/100 leukocytes 13 % High 1-7 [facility] Comment on above: Performed By: #### C DP, CP ####[facility] [place] [address] Neutrophil (Seg) 57 % Normal 36-66 [facility] Comment on above: Performed By: #### C DP, CP ####[facility] [place] [address].[place] [address] Platelet mean volume (PMV) 8.1 fL Normal 6.0-12.0 [facility] Comment on above: Performed By: #### C DP, CP ####[address] [address] Platelets 250 10*3/uL Normal 150-450 [facility] Comment on above: Performed By: #### C DP, CP ####[address] [address] WBC (Leukocytes) 6.0 10*3/uL Normal 3.5-11.0 [facility] Comment on above: Performed By: #### C DP, CP ####[address] [address] Auto Diff Performed NOT REPORTED Normal [facility] Comment on above: Performed By: #### C DP, CP ####[address] [address] Erythrocyte morphology NOT REPORTED Normal [facility] Comment on above: Performed By: #### C DP, CP ####[address] [address] Erythrocytes (RBC) NOT REPORTED Normal [facility] Comment on above: Performed By: #### C DP, CP ####[address] [address] Granulocytes/100 WBC (Bld) NOT REPORTED Normal 0.00-0.30 [facility] Comment on above: Performed By: #### C DP, CP ####[address] [address] Immature granulocytes #/vol (Bld) NOT REPORTED Normal 0 [facility] Comment on above: Performed By: #### C DP, CP ####[address] [place] [address] Platelets NOT REPORTED Normal [facility] Comment on above: Performed By: #### C DP, CP ####[address] [address] WBC Morphology NOT REPORTED Normal [facility] Comment on above: Performed By: #### C DP, CP ####[address] [address] Comp Metabolic Profon 2017 (cont.) Normal [facility] Comment on above: Result Comment: Aver age GFR for 50-59 years old: 93 mL/min/1.73sq mChronic Kidney Disease: <60 mL/min/1.73sq mKidney failure: <15 mL/min/1.73sq meGFR calculated using average adult body mass. Additional eGFR calculator available at:http://www.[employer]/multiple_crcl_2011.htmPerformed at [facility] [address] [place] [address] Performed By: #### C DP, CP ####[address] [address] #### GLYHGB ####[address] [address] Alanine aminotransferase (ALT) 16 U/L Normal 5-33 [facility] Comment on above: Result Comment: SPEC IMEN MODERATELY HEMOLYZED, RESULTS MAY BE ADVERSELY AFFECTED Performed By: #### C DP, CP ####[address] [address] #### GLYHGB ####[address] [address] Albumin 4.2 g/dL Normal 3.5-5.2 [facility] Comment on above: Performed By: #### C DP, CP ####[address] [place] [address] #### GLYHGB ####[address] [place] [address] Alkaline Phos 18 U/L Low 35-104 [facility] Comment on above: Performed By: #### C DP, CP ####[address] [place] [address] #### GLYHGB ####[address] [address] Anion gap 13 mmol/L Normal 9-17 [facility] Comment on above: Performed By: #### C DP, CP ####[address] [place] [address] #### GLYHGB ####[address] [address] Aspartate aminotransferase (AST) 25 U/L Normal <32 [facility] Comment on above: Result Comment: SPEC IMEN MODERATELY HEMOLYZED, RESULTS MAY BE ADVERSELY AFFECTED Performed By: #### C DP, CP ####[address] [place] [address] #### GLYHGB ####[address] [address] Bilirubin Ql (U) 0.28 mg/dL Low 0.3-1.2 [facility] Comment on above: Performed By: #### C DP, CP ####[address] [place] [address] #### GLYHGB ####[address] [address] Calcium 10.1 mg/dL Normal 8.6-10.4 [facility] Comment on above: Performed By: #### C DP, CP ####[facility] [place] [address] #### GLYHGB ####[address] [address] Chloride 99 mmol/L Normal 98-107 [facility] Comment on above: Performed By: #### C DP, CP ####[address] [address] #### GLYHGB ####[address] [address] CO2 28 mmol/L Normal 20-31 [facility] Comment on above: Performed By: #### C DP, CP ####[address] [address] #### GLYHGB ####[address] [address] Creatinine 1.04 mg/dL High 0.50-0.90 [facility] Comment on above: Performed By: #### C DP, CP ####[address] [address] #### GLYHGB ####[address] [place] [address] eGFR (non-black) mL/min/{1.73_m2} Normal >60 [facility] Comment on above: Performed By: #### C DP, CP ####[address] [address] #### GLYHGB ####[address] [address] eGFR (non-black) 54 mL/min/{1.73_m2} Low >60 [facility] Comment on above: Performed By: #### C DP, CP ####[facility] [place] [address] #### GLYHGB ####[facility] [place] [address] Glucose mass conc 110 mg/dL High 70-99 [facility] Comment on above: Performed By: #### C DP, CP ####[facility] [place] [address] #### GLYHGB ####[facility] [place] [address] Potassium molar conc 4.2 mmol/L Normal 3.7-5.3 [facility] Comment on above: Result Comment: SPEC IMEN MODERATELY HEMOLYZED, RESULTS MAY BE ADVERSELY AFFECTED Performed By: #### C DP, CP ####[facility] [place] [address] #### GLYHGB ####[facility] [place] [address] Protein 6.8 g/dL Normal 6.4-8.3 [facility] Comment on above: Performed By: #### C DP, CP ####[facility] [place] [address] #### GLYHGB ####[facility] [place] [address] Sodium 140 mmol/L Normal 135-144 [facility] Comment on above: Performed By: #### C DP, CP ####[facility] [place] [address] #### GLYHGB ####[facility] [place] [address] Urea nitrogen 23 mg/dL High 6-20 [facility] Comment on above: Performed By: #### C DP, CP ####[facility] [place] [address] #### GLYHGB ####[facility] [place] [address] Albumin/Globulin Ratio NOT REPORTED Normal 1.0-2.5 [facility] Comment on above: Performed By: #### C DP, CP ####[facility] [place] [address] #### GLYHGB ####[facility] [place] [address] BUN/CRE Ratio NOT REPORTED Normal 02-23 [facility] Comment on above: Performed By: #### C DP, CP ####[facility] [place] [address] #### GLYHGB ####[address] [place] [address] Staging: NOT REPORTED Normal [facility] Comment on above: Performed By: #### C DP, CP ####[address] [address] #### GLYHGB ####[facility] [place] [address] MRI BRAIN WO CONTRASTon 11-04 MRI BRAIN [...] by:EILEEN Silvaigned by:Dilan Pathak MD11/15/18Final result Normal [facility] Ammoniaon 11-09-2017 Ammonia 35 umol/L Normal [facility] Comment on above: Result Comment: Perf ormed at [facility] [address] [place] [address] Performed By: #### A MON ####[address] [address] B12/Folate Panelon 8 Folic Acid >20.0 Normal >4.8 [facility] Comment on above: Result Comment: Perf ormed at [address] [address] Performed By: #### C DP, CMPX ####[address] [address] #### TREP, B12FOL ####[address] [address] Cobalamins (Vitamin B12) 1550 pg/mL High 232-1245 [facility] Comment on above: Performed By: #### C DP, CMPX ####[address] [address] #### TREP, B12FOL ####[address] [address] CBC with Diffon 11-09-2017 Abs. Basophil 0.00 k/uL Normal 0.0-0.2 [facility] Comment on above: Result Comment: Perf ormed at [facility] [address] [place] [address] Performed By: #### C DP, CMPX ####[address] [address] #### TREP, B12FOL ####[address] [address] Abs.Neutrophil (Seg) 5.90 k/uL Normal 1.3-9.1 [facility] Comment on above: Performed By: #### C DP, CMPX ####[address] [address] #### TREP, B12FOL ####[address] [address] Basophils/100 WBC Auto (Bld) 1 % Normal 0-2 [facility] Comment on above: Performed By: #### C DP, CMPX ####[address] [address] #### TREP, B12FOL ####[address] [address] Eosinophils 0.00 10*3/uL Normal 0.0-0.4 [facility] Comment on above: Performed By: #### C DP, CMPX ####[address] [address] #### TREP, B12FOL ####[address] [address] Eosinophils/100 leukocytes 0 % Normal 0-4 [facility] Comment on above: Performed By: #### C DP, CMPX ####[facility] [place] [address] #### TREP, B12FOL ####[address] [address] Erythrocyte distribution width Auto Ratio (RBC) 13.8 % Normal 11.5-14.9 [facility] Comment on above: Performed By: #### C DP, CMPX ####[facility] [place] [address] #### TREP, B12FOL ####[address] [address] Erythrocytes (RBC) 4.37 10*6/uL Normal 4.0-5.2 [facility] Comment on above: Performed By: #### C DP, CMPX ####[facility] [place] [address] #### TREP, B12FOL ####[address] [address] Hematocrit (HCT) 41.0 % Normal 36-46 [facility] Comment on above: Performed By: #### C DP, CMPX ####[facility] [place] [address] #### TREP, B12FOL ####[address] [address] Hemoglobin mass conc (Bld) 13.9 g/dL Normal 12.0-16.0 [facility] Comment on above: Performed By: #### C DP, CMPX ####[facility] [place] [address] #### TREP, B12FOL ####[address] [address] Lymphocytes 1.90 10*3/uL Normal 1.0-4.8 [facility] Comment on above: Performed By: #### C DP, CMPX ####[facility] [place] [address] #### TREP, B12FOL ####[address] [address] Lymphocytes/100 leukocytes 21 % Low 24-44 [facility] Comment on above: Performed By: #### C DP, CMPX ####[address] [address] #### TREP, B12FOL ####[address] [address] MCH 31.9 pg Normal 26-34 [facility] Comment on above: Performed By: #### C DP, CMPX ####[facility] [place] [address] #### TREP, B12FOL ####[address] [address] MCHC mass conc (RBC) 34.0 g/dL Normal 31-37 [facility] Comment on above: Performed By: #### C DP, CMPX ####[facility] [place] [address] #### TREP, B12FOL ####[address] [address] MCV 93.8 fL Normal 80-100 [facility] Comment on above: Performed By: #### C DP, CMPX ####[facility] [place] [address] #### TREP, B12FOL ####[facility] [place] [address] Monocytes 1.00 10*3/uL Normal 0.1-1.3 [facility] Comment on above: Performed By: #### C DP, CMPX ####[facility] [place] [address] #### TREP, B12FOL ####[address] [address] Monocytes/100 leukocytes 12 % High 1-7 [facility] Comment on above: Performed By: #### C DP, CMPX ####[address] [address] #### TREP, B12FOL ####[address] [address] Neutrophil (Seg) 66 % Normal 36-66 [facility] Comment on above: Performed By: #### C DP, CMPX ####[address] [address] #### TREP, B12FOL ####[address] [address] Platelet mean volume (PMV) 8.4 fL Normal 6.0-12.0 [facility] Comment on above: Performed By: #### C DP, CMPX ####[facility] [place] [address] #### TREP, B12FOL ####[address] [address] Platelets 249 10*3/uL Normal 150-450 [facility] Comment on above: Performed By: #### C DP, CMPX ####[address] [place] [address] #### TREP, B12FOL ####[address] [address] WBC (Leukocytes) 8.9 10*3/uL Normal 3.5-11.0 [facility] Comment on above: Performed By: #### C DP, CMPX ####[facility] [place] [address] #### TREP, B12FOL ####[address] [address] Auto Diff Performed NOT REPORTED Normal [facility] Comment on above: Performed By: #### C DP, CMPX ####[address] [address] #### TREP, B12FOL ####[address] [address] Erythrocyte morphology NOT REPORTED Normal [facility] Comment on above: Performed By: #### C DP, CMPX ####[address] [address] #### TREP, B12FOL ####[address] [address] Erythrocytes (RBC) NOT REPORTED Normal [facility] Comment on above: Performed By: #### C DP, CMPX ####[address] [address] #### TREP, B12FOL ####[address] [address] Granulocytes/100 WBC (Bld) NOT REPORTED Normal 0.00-0.30 [facility] Comment on above: Performed By: #### C DP, CMPX ####[address] [facility] [place] [address] #### TREP, B12FOL ####[address] [place] [address] Immature granulocytes #/vol (Bld) NOT REPORTED Normal 0 [facility] Comment on above: Performed By: #### C DP, CMPX ####[address] [address] #### TREP, B12FOL ####[address] [place] [address] Platelets NOT REPORTED Normal [facility] Comment on above: Performed By: #### C DP, CMPX ####[address] [address] #### TREP, B12FOL ####[address] [address] WBC Morphology NOT REPORTED Normal [facility] Comment on above: Performed By: #### C DP, CMPX ####[address] [place] [address] #### TREP, B12FOL ####[address] [place] [address] Comp Metabolic Pr/rfx MGon 0 11-09-2017 Aspartate aminotransferase (AST) 37 U/L High <32 [facility] Comment on above: Performed By: #### C DP, CMPX ####[address] [address] #### TREP, B12FOL ####[address] [place] [address] (cont.) Normal [facility] Comment on above: Result Comment: Aver age GFR for 50-59 years old: 93 mL/min/1.73sq mChronic Kidney Disease: <60 mL/min/1.73sq mKidney failure: <15 mL/min/1.73sq meGFR calculated using average adult body mass. Additional eGFR calculator available at:http://www.[employer]/multiple_crcl_2012.htmPerformed at [facility] [address] [place] [address] Performed By: #### C DP, CMPX ####[address] [address] #### TREP, B12FOL ####[facility] [place] [address] Alanine aminotransferase (ALT) 20 U/L Normal 5-33 [facility] Comment on above: Performed By: #### C DP, CMPX ####[address] [place] [address] #### TREP, B12FOL ####[facility] [address] [place] [address] Albumin 4.2 g/dL Normal 3.5-5.2 [facility] Comment on above: Performed By: #### C DP, CMPX ####[address] [address] #### TREP, B12FOL ####[facility] [address] [place] [address] Alkaline Phos 21 U/L Low 35-104 [facility] Comment on above: Performed By: #### C DP, CMPX ####[address] [address] #### TREP, B12FOL ####[facility] [address] [place] [address] Anion gap 12 mmol/L Normal 9-17 [facility] Comment on above: Performed By: #### C DP, CMPX ####[facility] [place] [address] #### TREP, B12FOL ####[address] [place] [address] Bilirubin Ql (U) 0.28 mg/dL Low 0.3-1.2 [facility] Comment on above: Performed By: #### C DP, CMPX ####[facility] [place] [address], [place] [address] #### TREP, B12FOL ####[address] [address] Calcium 9.7 mg/dL Normal 8.6-10.4 [facility] Comment on above: Performed By: #### C DP, CMPX ####[facility] [place] [address], [place] [address] #### TREP, B12FOL ####[address] [address] Chloride 105 mmol/L Normal 98-107 [facility] Comment on above: Performed By: #### C DP, CMPX ####[facility] [facility] [place] [address] #### TREP, B12FOL ####[address] [place] [address] CO2 26 mmol/L Normal 20-31 [facility] Comment on above: Performed By: #### C DP, CMPX ####[facility] [place] [address], [place] [address] #### TREP, B12FOL ####[address] [place] [address] Creatinine 1.16 mg/dL High 0.50-0.90 [facility] Comment on above: Performed By: #### C DP, CMPX ####[facility] [place] [address] #### TREP, B12FOL ####[facility] [place] [address] eGFR (non-black) 48 mL/min/{1.73_m2} Low >60 [facility] Comment on above: Performed By: #### C DP, CMPX ####[facility] [place] [address] #### TREP, B12FOL ####[facility] [place] [address] eGFR (non-black) 58 mL/min/{1.73_m2} Low >60 [facility] Comment on above: Performed By: #### C DP, CMPX ####[facility] [place] [address] #### TREP, B12FOL ####[facility] [place] [address] Glucose mass conc 131 mg/dL High 70-99 [facility] Comment on above: Performed By: #### C DP, CMPX ####[facility] [place] [address] [place] [address] #### TREP, B12FOL ####[facility] [address] [place] [address] Potassium molar conc 3.8 mmol/L Normal 3.7-5.3 [facility] Comment on above: Performed By: #### C DP, CMPX ####[facility] [place] [address] #### TREP, B12FOL ####[facility] [address] [place] [address] Protein 6.9 g/dL Normal 6.4-8.3 [facility] Comment on above: Performed By: #### C DP, CMPX ####[facility] [place] [address] #### TREP, B12FOL ####[facility] [place] [address] Sodium 143 mmol/L Normal 135-144 [facility] Comment on above: Performed By: #### C DP, CMPX ####[address] [address] #### TREP, B12FOL ####[address] [place] [address] Urea nitrogen 21 mg/dL High 6-20 [facility] Comment on above: Performed By: #### C DP, CMPX ####[facility] [facility] [place] [address] #### TREP, B12FOL ####[address] [place] [address] Albumin/Globulin Ratio NOT REPORTED Normal 1.0-2.5 [facility] Comment on above: Performed By: #### C DP, CMPX ####[facility] [place] [address] [place] [address] #### TREP, B12FOL ####[facility] [place] [address] BUN/CRE Ratio NOT REPORTED Normal 9-20 [facility] Comment on above: Performed By: #### C DP, CMPX ####[facility] [place] [address] [place] [address] #### TREP, B12FOL ####[address] [address] Staging: NOT REPORTED Normal [facility] Comment on above: Performed By: #### C DP, CMPX ####[facility] [place] [address] #### TREP, B12FOL ####[address] [address] T.pallidum Ab Screenon 11-09 T.pallidum Ab Screen NONREACTIVE Normal NR [facility] Comment on above: Result Comment: T. p allidum antibodies are not detected.There is no serological evidence of infection with T. pallidum (early primary syphilis cannot be excluded). Retest in 2-4 weeks if syphilis is clinically suspect.Performed at [address] [address] Performed By: #### C DP, CMPX ####[facility] [place] [address] #### TREP, B12FOL ####[address] [address] CBC with Diffon 2017 Abs. Basophil 0.00 k/uL Normal 0.0-0.2 [facility] Comment on above: Result Comment: Perf ormed at [facility] [address] [place] [address] Performed By: #### C DP, CP ####[facility] [place] [address] #### GLYHGB ####[address] [address] Abs.Neutrophil (Seg) 4.20 k/uL Normal 1.3-9.1 [facility] Comment on above: Performed By: #### C DP, CP ####[facility] [place] [address] #### GLYHGB ####[address] [address] Basophils/100 WBC Auto (Bld) 1 % Normal 0-2 [facility] Comment on above: Performed By: #### C DP, CP ####[facility] [place] [address] #### GLYHGB ####[address] [address] Eosinophils 0.10 10*3/uL Normal 0.0-0.4 [facility] Comment on above: Performed By: #### C DP, CP ####[address] [address] #### GLYHGB ####[address] [address] Eosinophils/100 leukocytes 2 % Normal 0-4 [facility] Comment on above: Performed By: #### C DP, CP ####[address] [address] #### GLYHGB ####[address] [address] Erythrocyte distribution width Auto Ratio (RBC) 13.8 % Normal 11.5-14.9 [facility] Comment on above: Performed By: #### C DP, CP ####[address] [address] #### GLYHGB ####[address] [address] Erythrocytes (RBC) 4.27 10*6/uL Normal 4.0-5.2 [facility] Comment on above: Performed By: #### C DP, CP ####[facility] [place] [address] #### GLYHGB ####[address] [address] Hematocrit (HCT) 40.3 % Normal 36-46 [facility] Comment on above: Performed By: #### C DP, CP ####[facility] [place] [address] #### GLYHGB ####[address] [address] Hemoglobin mass conc (Bld) 13.8 g/dL Normal 12.0-16.0 [facility] Comment on above: Performed By: #### C DP, CP ####[address] [address] #### GLYHGB ####[address] [address] Lymphocytes 2.00 10*3/uL Normal 1.0-4.8 [facility] Comment on above: Performed By: #### C DP, CP ####[address] [place] [address] #### GLYHGB ####[address] [address] Lymphocytes/100 leukocytes 29 % Normal 24-44 [facility] Comment on above: Performed By: #### C DP, CP ####[facility] [place] [address] #### GLYHGB ####[address] [address] MCH 32.4 pg Normal 26-34 [facility] Comment on above: Performed By: #### C DP, CP ####[address] [address] #### GLYHGB ####[address] [address] MCHC mass conc (RBC) 34.3 g/dL Normal 31-37 [facility] Comment on above: Performed By: #### C DP, CP ####[address] [address] #### GLYHGB ####[address] [address] MCV 94.4 fL Normal 80-100 [facility] Comment on above: Performed By: #### C DP, CP ####[address] [address] #### GLYHGB ####[address] [address] Monocytes 0.80 10*3/uL Normal 0.1-1.3 [facility] Comment on above: Performed By: #### C DP, CP ####[address] [address] #### GLYHGB ####[address] [address] Monocytes/100 leukocytes 11 % High 1-7 [facility] Comment on above: Performed By: #### C DP, CP ####[address] [address] #### GLYHGB ####[address] [address] Neutrophil (Seg) 57 % Normal 36-66 [facility] Comment on above: Performed By: #### C DP, CP ####[facility] [place] [address] #### GLYHGB ####[address] [place] [address] Platelet mean volume (PMV) 8.6 fL Normal 6.0-12.0 [facility] Comment on above: Performed By: #### C DP, CP ####[facility] [place] [address] #### GLYHGB ####[address] [address] Platelets 234 10*3/uL Normal 150-450 [facility] Comment on above: Performed By: #### C DP, CP ####[facility] [place] [address] #### GLYHGB ####[address] [place] [address] WBC (Leukocytes) 7.1 10*3/uL Normal 3.5-11.0 [facility] Comment on above: Performed By: #### C DP, CP ####[facility] [place] [address] #### GLYHGB ####[address] [place] [address] Auto Diff Performed NOT REPORTED Normal [facility] Comment on above: Performed By: #### C DP, CP ####[facility] [place] [address] #### GLYHGB ####[address] [place] [address] Erythrocyte morphology NOT REPORTED Normal [facility] Comment on above: Performed By: #### C DP, CP ####[facility] [place] [address] #### GLYHGB ####[address] [address] Erythrocytes (RBC) NOT REPORTED Normal [facility] Comment on above: Performed By: #### C DP, CP ####[facility] [place] [address] #### GLYHGB ####[address] [address] Granulocytes/100 WBC (Bld) NOT REPORTED Normal 0.00-0.30 [facility] Comment on above: Performed By: #### C DP, CP ####[address] [address] #### GLYHGB ####[address] [address] Immature granulocytes #/vol (Bld) NOT REPORTED Normal 0 [facility] Comment on above: Performed By: #### C DP, CP ####[address] [address] #### GLYHGB ####[address] [address] Platelets NOT REPORTED Normal [facility] Comment on above: Performed By: #### C DP, CP ####[facility] [place] [address] #### GLYHGB ####[address] [address] WBC Morphology NOT REPORTED Normal [facility] Comment on above: Performed By: #### C DP, CP ####[address] [address] #### GLYHGB ####[facility] [address] [place] [address] Comp Metabolic Profon 2017 (cont.) Normal [facility] [facility] Comment on above: Result Comment: Aver age GFR for 50-59 years old: 93 mL/min/1.73sq mChronic Kidney Disease: <60 mL/min/1.73sq mKidney failure: <15 mL/min/1.73sq meGFR calculated using average adult body mass. Additional eGFR calculator available at:http://www.[employer]/multiple_crcl_2011.htmPerformed at [address] [address] Performed By: #### C DP, CP ####[address] [address] #### GLYHGB ####[address] [place] [address] Alanine aminotransferase (ALT) 13 U/L Normal 5-33 [facility] Comment on above: Performed By: #### C DP, CP ####[address] [address] #### GLYHGB ####[facility] [address] [place] [address] Albumin 4.2 g/dL Normal 3.5-5.2 [facility] Comment on above: Performed By: #### C DP, CP ####[address] [address] #### GLYHGB ####[facility] [address] [place] [address] Alkaline Phos 23 U/L Low 35-104 [facility] Comment on above: Performed By: #### C DP, CP ####[facility] [place] [address] #### GLYHGB ####[address] [place] [address] Anion gap 12 mmol/L Normal 9-17 [facility] Comment on above: Performed By: #### C DP, CP ####[facility] [place] [address] #### GLYHGB ####[address] [place] [address] Aspartate aminotransferase (AST) 17 U/L Normal <32 [facility] Comment on above: Performed By: #### C DP, CP ####[address] [address] #### GLYHGB ####[address] [address] Bilirubin Ql (U) 0.36 mg/dL Normal 0.3-1.2 [facility] Comment on above: Performed By: #### C DP, CP ####[address] [place] [address] #### GLYHGB ####[address] [place] [address] Calcium 9.9 mg/dL Normal 8.6-10.4 [facility] Comment on above: Performed By: #### C DP, CP ####[address] [place] [address] #### GLYHGB ####[address] [place] [address] Chloride 102 mmol/L Normal 98-107 [facility] Comment on above: Performed By: #### C DP, CP ####[facility] [place] [address] #### GLYHGB ####[address] [address] CO2 27 mmol/L Normal 20-31 [facility] Comment on above: Performed By: #### C DP, CP ####[facility] [place] [address] #### GLYHGB ####[address] [place] [address] Creatinine 1.00 mg/dL High 0.50-0.90 [facility] Comment on above: Performed By: #### C DP, CP ####[facility] [place] [address] #### GLYHGB ####[address] [address] eGFR (non-black) mL/min/{1.73_m2} Normal >60 [facility] Comment on above: Performed By: #### C DP, CP ####[facility] [place] [address] #### GLYHGB ####[address] [place] [address] eGFR (non-black) 57 mL/min/{1.73_m2} Low >60 [facility] Comment on above: Performed By: #### C DP, CP ####[facility] [place] [address] #### GLYHGB ####[facility] [place] [address] Glucose mass conc 95 mg/dL Normal 70-99 [facility] Comment on above: Performed By: #### C DP, CP ####[facility] [place] [address] #### GLYHGB ####[address] [place] [address] Potassium molar conc 4.3 mmol/L Normal 3.7-5.3 [facility] Comment on above: Performed By: #### C DP, CP ####[facility] [place] [address] #### GLYHGB ####[address] [address] Protein 6.8 g/dL Normal 6.4-8.3 [facility] Comment on above: Performed By: #### C DP, CP ####[facility] [place] [address] [place] [address] #### GLYHGB ####[address] [address] Sodium 141 mmol/L Normal 135-144 [facility] Comment on above: Performed By: #### C DP, CP ####[facility] [place] [address] #### GLYHGB ####[address] [place] [address] Urea nitrogen 21 mg/dL High 6-20 [facility] Comment on above: Performed By: #### C DP, CP ####[facility] [place] [address] #### GLYHGB ####[address] [place] [address] Albumin/Globulin Ratio NOT REPORTED Normal 1.0-2.5 [facility] Comment on above: Performed By: #### C DP, CP ####[facility] [place] [address] #### GLYHGB ####[address] [address] BUN/CRE Ratio NOT REPORTED Normal 9-20 [facility] Comment on above: Performed By: #### C DP, CP ####[facility] [place] [address] #### GLYHGB ####[address] [address] Staging: NOT REPORTED Normal [facility] Comment on above: Performed By: #### C DP, CP ####[address] [address] #### GLYHGB ####[address] [address] Hemoglobin A1Con 2017 Glucose mass conc 94 mg/dL Normal [facility] Comment on above: Result Comment: The ADA and AACC recommend providing the estimated average glucose result to permit better patient understanding of their HBA1c result.Performed at [address] [place] [address] Performed By: #### C DP, CP ####[facility] [place] [address] #### GLYHGB ####[address] [place] [address] Hemoglobin A1c/Hemoglobin.total mass fraction (Bld) 4.9 % Normal 4.0-6.0 [facility] Comment on above: Performed By: #### C DP, CP ####[facility] [place] [address] #### GLYHGB ####[address] [place] [address] Valproic Acidon 11-01-2017 Valproic Acid 56 ug/mL Normal 50-125 [facility] Comment on above: Performed By: #### V ALPC ####[facility] [facility] [place] [address] Date last dose, 886131 Normal [facility] Comment on above: Performed By: #### V ALPC ####[facility] [place] [address] Dose amount 500 Normal [facility] Comment on above: Performed By: #### V ALPC ####[facility] [facility] [place] [address] Time last dose, 0842 Normal [facility] Comment on above: Result Comment: Perf ormed at [facility] [address] [place] [address] Performed By: #### V ALPC ####[facility] [place] [address] Vital Signs Date Time Vital Sign Value Performing Clinician Facility 08-29-2024 14:05-0400 Body height 160 cm Xena Marrufo MD Work Phone: [facility] 08-29-2024 14:05-0400 Body mass index (BMI) [Ratio] 27.81 kg/m2 Xena Marrufo MD Work Phone: [facility] 08-29-2024 14:05-0400 Body weight 71.22 kg Xena Marrufo MD Work Phone: [facility] 08-29-2024 14:05-0400 Diastolic blood pressure 97 mm[Hg] Xena Marrufo MD Work Phone: [facility] 08-29-2024 14:05-0400 Heart rate 77 /min Xena Marrufo MD Work Phone: [facility] 08-29-2024 14:05-0400 Respiratory rate 16 /min Xena Marrufo MD Work Phone: [facility] 08-29-2024 14:05-0400 SaO2% (BldA) [Mass fraction] 98 % Xena Marrufo MD Work Phone: [facility] 08-29-2024 14:05-0400 Systolic blood pressure 138 mm[Hg] Xena Marrufo MD Work Phone: [facility] 04-03-2024 08:33-0400 Body height 160.02 cm [facility] 04-03-2024 08:33-0400 Body mass index (BMI) [Ratio] 27.1 kg/m2 [facility] 04-03-2024 08:33-0400 Body temperature 97.6 [degF] [facility] 04-03-2024 08:33-0400 Body weight 69.56 kg [facility] 04-03-2024 08:33-0400 Diastolic blood pressure 85 mm[Hg] [facility] 04-03-2024 08:33-0400 Heart rate 78 /min [facility] 04-03-2024 08:33-0400 Respiratory rate 16 /min [facility] 04-03-2024 08:33-0400 SaO2% (BldA) [Mass fraction] 99 % [facility] 04-03-2024 08:33-0400 Systolic blood pressure 145 mm[Hg] [facility] 10-08-2023 18:48-0400 Body mass index (BMI) [Ratio] 29.26 kg/m2 Rylie Griffin DO Work Phone: [employer] 10-08-2023 18:48-0400 Body temperature 98.4 [degF] Rylie Griffin DO Work Phone: [employer] 10-08-2023 18:48-0400 Body weight 72.58 kg Rylie Griffin DO Work Phone: [employer] 10-08-2023 18:48-0400 Diastolic blood pressure 97 mm[Hg] Rylie Griffin DO Work Phone: [employer] 10-08-2023 18:48-0400 Heart rate 58 /min Rylie Griffin DO Work Phone: [employer] 10-08-2023 18:48-0400 Respiratory rate 18 /min Rylie Griffin DO Work Phone: [employer] 10-08-2023 18:48-0400 SaO2% (BldA) [Mass fraction] 99 % Rylie Griffin DO Work Phone: [employer] 10-08-2023 18:48-0400 Systolic blood pressure 149 mm[Hg] Rylie Griffin DO Work Phone: [employer] 09-19-2023 16:34-0400 Body height 160.02 cm [facility] 09-19-2023 16:34-0400 Body mass index (BMI) [Ratio] 27.1 kg/m2 [facility] 09-19-2023 16:34-0400 Body temperature 96.6 [degF] [facility] 09-19-2023 16:34-0400 Body weight 69.39 kg [facility] 09-19-2023 16:34-0400 Heart rate 72 /min [facility] 09-19-2023 16:34-0400 Respiratory rate 16 /min [facility] 09-19-2023 16:34-0400 SaO2% (BldA) [Mass fraction] 100 % [facility] 09-05-2023 15:00-0400 Body height 160 cm Radha Penaloza APRN-INJECTION MOLDING MACHINE OFFBEARER Work Phone[facility] 09-05-2023 15:00-0400 Body mass index (BMI) [Ratio] 27.32 kg/m2 Radha Penaloza APRN-INJECTION MOLDING MACHINE OFFBEARER Work Phone: [employer] 09-05-2023 15:00-0400 Body weight 69.94 kg Radha Penaloza COMPLAINT INVESTIGATOR-INJECTION MOLDING MACHINE OFFBEARER Work Phone[facility] 09-05-2023 15:00-0400 Diastolic blood pressure 94 mm[Hg] Radha Penaloza COMPLAINT INVESTIGATOR-INJECTION MOLDING MACHINE OFFBEARER Work Phone: [facility] [employer] [facility] 09-05-2023 15:00-0400 Heart rate 135 /min Radha Penaloza COMPLAINT INVESTIGATOR-INJECTION MOLDING MACHINE OFFBEARER Work Phone: [facility] [employer] 09-05-2023 15:00-0400 Systolic blood pressure 155 mm[Hg] Radha Penaloza COMPLAINT INVESTIGATOR-INJECTION MOLDING MACHINE OFFBEARER Work Phone: [facility] [employer] [facility] 07-06-2023 09:30-0500 Body height 160.02 cm Santa Augustin Other [facility] 07-06-2023 09:30-0500 Body mass index (BMI) [Ratio] 26.75 kg/m2 Santa Augustin Other [facility] [employer] Other 07-06-2023 09:30-0500 Body weight 68.49 kg Santa Augustin Other [facility] 07-06-2023 09:30-0500 Diastolic blood pressure 85 mm[Hg] Santa Augustin Other [facility] 07-06-2023 09:30-0500 Systolic blood pressure 129 mm[Hg] Santa Augustin Other [facility] 03-23-2023 16:40-0400 Body height 160.02 cm Zachary Maria Dolores Other [employer] Other 03-23-2023 16:40-0400 Body mass index (BMI) [Ratio] 26.92 kg/m2 Zachary Maria Dolores Other [employer] Other 03-23-2023 16:40-0400 Body temperature 97.4 [degF] Zachary Maria Dolores Other [employer] Other 03-23-2023 16:40-0400 Body weight 68.95 kg Zachary Maria Dolores Other [employer] Other 03-23-2023 16:40-0400 Diastolic blood pressure 78 mm[Hg] Zachary Maria Dolores Other [employer] Other 03-23-2023 16:40-0400 Respiratory rate 18 /min Zachary Maria Dolores Other [employer] Other 03-23-2023 16:40-0400 SaO2% (BldA) [Mass fraction] 96 % Zachary Maria Dolores Other [employer] Other 03-23-2023 16:40-0400 Systolic blood pressure 113 mm[Hg] Zachary Maria Dolores Other [employer] Other 01-20-2023 15:15-0400 Body height 160.02 cm Santa Augustin Other [employer] Other 01-20-2023 15:15-0400 Body mass index (BMI) [Ratio] 26.21 kg/m2 Santa Augustin Other [employer] Other 01-20-2023 15:15-0400 Body weight 67.13 kg Santa Augustin Other [employer] Other 01-20-2023 15:15-0400 Diastolic blood pressure 78 mm[Hg] Santa Augustin Other [employer] Other 01-20-2023 15:15-0400 Systolic blood pressure 116 mm[Hg] Santa Augustin Other [employer] Other 11-16-2022 14:40-0400 Body height 160.02 cm Zachary Maria Dolores Other [employer] Other 11-16-2022 14:40-0400 Body mass index (BMI) [Ratio] 27.77 kg/m2 Zachary Maria Dolores Other [employer] Other 11-16-2022 14:40-0400 Body temperature 96.7 [degF] Zachary Maria Dolores Other [employer] Other 11-16-2022 14:40-0400 Body weight 71.12 kg Zachary Maria Dolores Other [employer] Other 11-16-2022 14:40-0400 Diastolic blood pressure 69 mm[Hg] Zachary Maria Dolores Other [employer] Other 11-16-2022 14:40-0400 Respiratory rate 18 /min Zachary Maria Dolores Other [employer] Other 11-16-2022 14:40-0400 SaO2% (BldA) [Mass fraction] 99 % Zachary Maria Dolores Other [employer] Other 11-16-2022 14:40-0400 Systolic blood pressure 108 mm[Hg] Zachary Maria Dolores Other [employer] Other 05-06-2022 10:40-0500 Body height 160.02 cm Zachary Maria Dolores Other [employer] Other 05-06-2022 10:40-0500 Body mass index (BMI) [Ratio] 27.42 kg/m2 Zachary Maria Dolores Other [employer] Other 05-06-2022 10:40-0500 Body weight 70.22 kg Zachary Maria Dolores Other [employer] Other 05-06-2022 10:40-0500 Diastolic blood pressure 54 mm[Hg] Zachary Maria Dolores Other [employer] Other 05-06-2022 10:40-0500 Respiratory rate 18 /min Zachary Maria Dolores Other [employer] Other 05-06-2022 10:40-0500 SaO2% (BldA) [Mass fraction] 99 % Zachary Maria Dolores Other [employer] Other 05-06-2022 10:40-0500 Systolic blood pressure 122 mm[Hg] Zachary Maria Dolores Other [employer] Other 03-23-2022 07:30-0400 Body temperature 97.9 [degF] MD Santa Augustin Work Phone: [facility] 03-23-2022 07:30-0400 Diastolic blood pressure 90 mm[Hg] MD Santa Augustin Work Phone: [facility] 03-23-2022 07:30-0400 Heart rate 90 /min MD Santa Augustin Work Phone: [facility] 03-23-2022 07:30-0400 SaO2% (BldA) [Mass fraction] 97 % MD Santa Augustin Work Phone: [facility] 03-23-2022 07:30-0400 Systolic blood pressure 133 mm[Hg] MD Santa Augustin Work Phone: [facility] 03-22-2022 22:24-0400 Respiratory rate 16 /min MD Santa Augustin Work Phone: [facility] 03-22-2022 09:00-0400 Body weight 73.93 kg MD Santa Augustin Work Phone: [facility] 03-18-2022 09:21-0400 Body height 160.02 cm MD Santa Augustin Work Phone: [facility] 03-11-2022 23:31-0400 Body temperature 97.2 [degF] MD Santa Augustin Work Phone: [facility] 03-11-2022 23:31-0400 Diastolic blood pressure 95 mm[Hg] MD Santa Augustin Work Phone: [facility] 03-11-2022 23:31-0400 Heart rate 76 /min MD Santa Augustin Work Phone: [facility] 03-11-2022 23:31-0400 Respiratory rate 18 /min MD Santa Augustin Work Phone: [facility] 03-11-2022 23:31-0400 SaO2% (BldA) [Mass fraction] 100 % MD Santa Augustin Work Phone: [facility] 03-11-2022 23:31-0400 Systolic blood pressure 187 mm[Hg] MD Santa Augustin Work Phone: [facility] 03-11-2022 18:16-0400 Body height 160.02 cm MD Santa Augustin Work Phone: [facility] 03-11-2022 18:16-0400 Body weight 72 kg MD Santa Augustin Work Phone: [facility] 09-14-2021 15:34-0400 Body height 160 cm Juan Adames MD Work Phone: [facility] 09-14-2021 15:34-0400 Body mass index (BMI) [Ratio] 27.63 kg/m2 Juan Adames MD Work Phone: [facility] 09-14-2021 15:34-0400 Body weight 70.76 kg Juan Adames MD Work Phone: [facility] 09-14-2021 15:34-0400 Diastolic blood pressure 86 mm[Hg] Juan Adames MD Work Phone: [facility] 09-14-2021 15:34-0400 Heart rate 69 /min Juan Adames MD Work Phone: [facility] 09-14-2021 15:34-0400 Respiratory rate 16 /min Juan Adames MD Work Phone: [facility] 09-14-2021 15:34-0400 SaO2% (BldA) [Mass fraction] 97 % Juan Adames MD Work Phone: [facility] 09-14-2021 15:34-0400 Systolic blood pressure 132 mm[Hg] Juan Adames MD Work Phone: [facility] 05-06-2021 16:25-0500 Body height 160.02 cm Geneva Naik Other [employer] Other 05-06-2021 16:25-0500 Body mass index (BMI) [Ratio] 29.05 kg/m2 Geneva Naik Other [employer] Other 05-06-2021 16:25-0500 Body temperature 98.6 [degF] Geneva Naik Other [employer] Other 05-06-2021 16:25-0500 Body weight 74.39 kg Geneva Naik Other [employer] Other 05-06-2021 16:25-0500 Diastolic blood pressure 90 mm[Hg] Geneva Naik Other [employer] Other 05-06-2021 16:25-0500 Respiratory rate 18 /min Geneva Naik Other [employer] Other 05-06-2021 16:25-0500 SaO2% (BldA) [Mass fraction] 100 % Geneva Naik Other [employer] Other 05-06-2021 16:25-0500 Systolic blood pressure 142 mm[Hg] Geneva Naik Other [employer] Other 04-01-2021 16:40-0400 Body height 160.02 cm Zachary Maria Dolores Other [employer] Other 04-01-2021 16:40-0400 Body mass index (BMI) [Ratio] 29.37 kg/m2 Zachary Maria Dolores Other [employer] Other 04-01-2021 16:40-0400 Body temperature 97.1 [degF] Zachary Maria Dolores Other [employer] Other 04-01-2021 16:40-0400 Body weight 75.21 kg Zachary Maria Dolores Other [employer] Other 04-01-2021 16:40-0400 Diastolic blood pressure 82 mm[Hg] Zachary Maria Dolores Other [employer] Other 04-01-2021 16:40-0400 Respiratory rate 18 /min Zachary Maria Dolores Other [employer] Other 04-01-2021 16:40-0400 SaO2% (BldA) [Mass fraction] 98 % Zachary Maria Dolores Other [employer] Other 04-01-2021 16:40-0400 Systolic blood pressure 116 mm[Hg] Zachary Pascual Other [employer] Other 08-22-2020 14:30-0400 BMI (Body Mass Index) 26.57 kg/m2 [facility] 08-22-2020 14:30-0400 Body weight 68.04 kg [facility] 08-22-2020 14:30-0400 Height 160 cm [facility] Encounters Encounter Date Encounter Type Care Provider Facility Start: 08-29-2024 End: 08-29-2024 Office outpatient visit 25 minutes Xena Marrufo MD Work Phone: [facility] Comment on above: Hypercalcemia (Prima ry Dx); Hyperparathyroidism (CMS/HCC); Vitamin D deficiency; Chronic kidney disease, stage 3b (HCC) ([facility]/HCC) Start: 08-29-2024 End: 08-29-2024 ambulatory XENA MARRUFO Not Available Start: 07-04-2024 End: 07-04-2024 ambulatory CHRISTINE DENISERIAGUSTINA Facility:[facility] Start: 07-04-2024 End: 07-04-2024 Patient encounter procedure Christine Brown OD Work Phone: Ophthalmology Comment on above: Downbeat nystagmus ( Primary Dx); Hypertropia of right eye Start: 05-23-2024 End: 05-23-2024 ambulatory CHRISTINE BORRIELLO Facility:[facility] Start: 05-23-2024 End: 05-23-2024 Patient encounter procedure Christine Pageello OD Work Phone: Ophthalmology Comment on above: Downbeat nystagmus ( Primary Dx); Hypertropia of right eye Start: 04-13-2024 End: 04-13-2024 Bamboo flowsheet Vandana Chen DO Work Phone: [facility] Start: 04-13-2024 End: 04-13-2024 Bamboo flowsheet Vandana Chen DO Work Phone: [facility] Start: 04-13-2024 End: 04-13-2024 Office outpatient new 60 minutes Vandana D Gwen DO Work Phone: [facility] Comment on above: Downbeat nystagmus ( Primary Dx); Diplopia; Age-related nuclear cataract of both eyes; Dry eyes Start: 04-13-2024 End: 04-13-2024 ambulatory VANDANA Navjot CHEN Not Available Start: 04-03-2024 End: 04-03-2024 ambulatory [facility] Work Phone: Start: 04-03-2024 End: 04-03-2024 [facility] encounter procedure [facility] Work Phone: Start: 03-24-2024 Non-patient / Non-visit [facility] Work Phone: Start: 02-10-2024 End: 02-10-2024 Bamboo flowsheet Ruby Asencio OT Work Phone: [facility] Start: 02-10-2024 End: 02-10-2024 Bamboo flowsheet Ruby Asencio OT Work Phone: [facility] Start: 02-10-2024 End: 02-10-2024 ambulatory Ruby Asencio OT Work Phone: [facility] Comment on above: Closed fracture of d istal end of right radius with routine healing, unspecified fracture morphology, subsequent encounter; Closed nondisplaced fracture of styloid process of right ulna with routine healing Start: 02-01-2024 Non-patient / Non-visit [facility] Work Phone: Start: 01-30-2024 End: 01-30-2024 Bamboo flowsheet Gretchen Jensen CLOTH BOIL OFF MACHINE OPERATOR Work Phone: [facility] Start: 01-30-2024 End: 08-26-2024 Bamboo flowsheet Gretchen Jensen CLOTH BOIL OFF MACHINE OPERATOR Work Phone: [facility] Start: 01-30-2024 End: 01-30-2024 Office outpatient visit 10 minutes Gretchen Jensen CLOTH BOIL OFF MACHINE OPERATOR Work Phone: [facility] Comment on above: Closed fracture of d istal end of right radius with routine healing, unspecified fracture morphology, subsequent encounter (Primary Dx); Closed nondisplaced fracture of styloid process of right ulna with routine healing Start: 01-30-2024 End: 01-30-2024 ambulatory GRETCHEN Fried APLING Not Available Start: 12-28-2023 End: 12-28-2023 ambulatory GRETCHEN Fried APLING Not Available Start: 11-30-2023 End: 11-30-2023 ambulatory GRETCHEN Fried APLING Not Available Start: 11-07-2023 End: 11-07-2023 ambulatory GRETCHEN Fried APLING Not Available Start: 10-19-2023 End: 10-19-2023 ambulatory GRETCHEN Fried APLING Not Available Start: 10-10-2023 End: 10-10-2023 ambulatory GRETCHEN Fried APLING Not Available Start: 10-09-2023 ambulatory [facility] Start: 10-08-2023 End: 10-08-2023 Emergency department patient visit [facility] [facility] Start: 10-08-2023 End: 10-08-2023 Emergency department patient visit Rylie Elias DO Work Phone: [facility] Comment on above: Closed fracture of r ight wrist, initial encounter (Primary Dx) Start: 09-22-2023 End: 09-22-2023 Telephone encounter Eboni Jara A [facility] Start: 09-19-2023 End: 09-19-2023 ambulatory [facility] Work Phone: Start: 09-19-2023 End: 09-19-2023 Patient encounter procedure [facility] Work Phone: Start: 09-05-2023 End: 09-05-2023 ambulatory RADHA PENALOZA [facility] Start: 09-05-2023 End: 09-05-2023 Office outpatient visit 15 minutes Radha Penaloza COMPLAINT INVESTIGATOR-INJECTION MOLDING MACHINE OFFBEARER Work Phone: [facility] Comment on above: Chronic constipation (Primary Dx) Start: 08-29-2023 Non-patient / Non-visit [facility] [employer] Work Phone: Start: 07-06-2023 End: 07-06-2023 ambulatory Santa Augustin Other [employer] Other Start: 07-06-2023 Encounter for genera l adult medical examination without abnormal findings Santa Augustin [facility] Start: 07-06-2023 Periodic preventive med est patient 40-64yrs Santa Augustin [facility] Start: 07-06-2023 End: 07-06-2023 Patient encounter procedure [facility] Start: 03-23-2023 End: 03-23-2023 ambulatory Zachary Maria Dolores Other [employer] Other Start: 03-23-2023 Office outpatient vi sit 15 minutes Zachary Maria Dolores [facility] Nephrology Start: 01-20-2023 End: 01-20-2023 ambulatory Santa Augustin Other [employer] Other Start: 01-20-2023 Office outpatient vi sit 15 minutes Santa Augustin [facility] Start: 11-16-2022 End: 11-16-2022 ambulatory Zachary Maria Dolores Other [employer] Other Start: 11-16-2022 Office outpatient vi sit 25 minutes Zachary Maria Dolores [facility] Nephrology Start: 06-21-2022 End: 06-21-2022 ambulatory [place] [facility] Start: 06-21-2022 End: 06-21-2022 Office outpatient visit 15 minutes Juan Adames MD Work Phone: [facility] Comment on above: KALEN (generalized anx iety disorder) Start: 05-26-2022 End: 05-27-2022 ambulatory JUAN ADAMES Facility:H1 Start: 05-14-2022 ambulatory [place] [facility] Ambulatory Start: 05-08-2022 End: 05-09-[address] [place] Facility:H1 Start: 05-06-2022 End: 05-06-2022 ambulatory Zachary Maria Dolores Other [employer] Other Start: 05-06-2022 Office outpatient vi sit 15 minutes Zachary Maria Dolores [facility] Start: 04-26-2022 End: 04-26-2022 [facility] Start: 04-26-2022 End: 04-26-2022 Phys/qhp telephone evaluation 11-20 min Juan Adames MD Work Phone: [facility] Comment on above: Long-term use of hig h-risk medication (Primary Dx); Bipolar affective disorder, manic, severe, with psychotic behavior (HCC) Start: 04-20-2022 End: 04-20-2022 ambulatory Zachary Maria Dolores Other [employer] Other Start: 04-20-2022 Telephone encounter Zachary Maria Dolores [facility] Start: 04-19-2022 End: 04-19-2022 [facility] Start: 04-19-2022 End: 04-19-2022 Office outpatient visit 25 minutes Juan Adames MD Work Phone: [facility] Comment on above: Bipolar affective di sorder, manic, severe, with psychotic behavior (HCC) (Primary Dx); KALEN (generalized anxiety disorder) Start: 04-08-2022 End: 04-09-[address] DENTON DELGADO Facility:H1 Start: 03-31-2022 Adult health examination [place] Other [employer] Other Start: 03-31-2022 Problem, abnormal examination Santa Augustin Other [employer] Other Start: 03-24-2022 ambulatory S[place] AUGUSTIN [facility] Ambulatory Start: 03-12-2022 End: 03-23-2022 Evaluation and management of inpatient Marco A Zaman Facility:[facility] Start: 03-11-2022 End: 03-23-2022 Evaluation and management of inpatient MD Santa Augustin Work Phone: [facility] Start: 02-12-2022 End: 02-12-2022 ambulatory SANT[place] Brown DEMETRIA [facility] Start: 02-12-2022 End: 02-12-2022 Phys/qhp telephone evaluation 11-20 min Juan Adames MD Work Phone: [facility] Comment on above: Bipolar 1 disorder, manic, moderate (HCC) (Primary Dx); Anxiety Start: 02-09-2022 Orders Only Juan Adames MD Work Phone: [facility] Start: 01-22-2022 End: 01-23-2022 ambulatory JUAN ADAMES Facility:[facility] Start: 01-18-2022 End: 01-18-2022 ambulatory [place] Kevin AUGUSTIN [facility] Start: 12-10-2021 End: 12-10-2021 ambulatory Zachary Maria Dolores Other [employer] Other Start: 12-10-2021 Telephone encounter Zachary Maria Dolores [facility] Start: 12-07-2021 End: 12-07-2021 ambulatory ROSMERY TAVARES . Facility:[facility]1 Start: 12-05-2021 End: 12-06-2021 ambulatory JUAN ADAMES Facility:[facility] Start: 11-19-2021 Documentation procedure Delmy Adames MD Work Phone: [facility] Start: 11-17-2021 End: 11-17-2021 ambulatory Zachary Maria Dolores Other [employer] Other Start: 11-17-2021 Telephone encounter Zachary Maria Dolores [facility] [place] Start: 09-21-2021 End: 09-22-[address] [place] Facility:[facility]1 Start: 09-14-2021 End: 09-14-2021 ambulatory [place] [facility] Start: 09-14-2021 End: 09-14-2021 Office outpatient visit 25 minutes Juan Adames MD Work Phone: [facility] Comment on above: KALEN (generalized anx iety disorder) (Primary Dx); Bipolar 1 disorder, manic, mild (HCC); Long-term use of high-risk medication; Anxiety Start: 08-25-2021 Orders Only Yuni Khan Gr und INJECTION MOLDING MACHINE OFFBEARER Work Phone: [facility] Comment on above: Anxiety (Primary Dx) KALEN (generalized anx iety disorder) Start: 08-21-2021 Refill Ebony Black LPN [facility] Comment on above: KALEN (generalized anx iety disorder) Start: 05-21-2021 Refill Ami Agustin MA [facility] Comment on above: KALEN (generalized anx iety disorder) Start: 05-06-2021 End: 05-06-2021 ambulatory Geneva Naik [employer] Other Start: 05-06-2021 Office outpatient vi sit 15 minutes Geneva Naik [facility] Start: 04-01-2021 Office outpatient vi sit 15 minutes Zachary Pascual [facility] Nephrology Start: 02-13-2021 End: 02-13-2021 Office outpatient visit 25 minutes Juan Adames MD Work Phone: [facility] Comment on above: KALEN (generalized anx iety disorder) Start: 01-27-2021 Documentation procedure Fred Tenorio LPN [facility] Start: 08-22-2020 End: 08-22-2020 Phys/qhp telephone evaluation 21-30 min Juan Adames Work Phone: [facility] Comment on above: Bipolar 1 disorder, manic, mild (HCC) (Primary Dx); KALEN (Generalized Anxiety Disorder); Long-term use of high-risk medication Start: 07-14-2020 End: 07-14-2020 Refill Updee Adames Work Phone: [facility] Comment on above: KALEN (Generalized Anx iety Disorder) (Primary Dx) Start: 10-26-2017 End: 11-22-2017 Evaluation and management of inpatient [place] [facility] Procedures Date Procedure Procedure Detail Performing Clinician Start: 01-30-2024 Radex wrist 2 views Alvaro Jensen CLOTH BOIL OFF MACHINE OPERATOR Work Phone: Start: 10-08-2023 Radex wrist complete minimum 3 views Carrie Quinten COMPLAINT INVESTIGATOR - INJECTION MOLDING MACHINE OFFBEARER Work Phone: Start: 09-07-2021 Colonoscopy Updee rodrigues MD Work Phone: Start: 11-11-2020 Mammography Juan rodrigues MD Work Phone: Start: 10-29-2020 Mammography Heidi portillo LPN Start: 11-22-2017 DISCHARGE PATIENT SOUTH A DEMETRIA Start: 11-20-2017 VALPROIC ACID LEVEL, TOTAL [place] Start: 11-15-2017 Mri brain brain stem w/o contrast material [place] Start: 11-15-2017 Blood count complete auto&auto difrntl wbc [place] Start: 11-15-2017 Comprehensive metabo lic panel [place] Start: 11-09-2017 AMMONIA [place]TH[place] LINDA Start: 11-09-2017 Blood count complete auto&auto difrntl wbc [place] Start: 11-09-2017 COMPREHENSIVE METABO LIC PANEL W/ REFLEX TO MG FOR LOW K [place] Start: 11-09-2017 T. PALLIDUM AB [place]ANT[place] Fried RAUN Start: 11-09-2017 VITAMIN B12 AND FOLATE [place] Start: 11-09-2017 C.TRACHOMATIS N.GONO RRHOEAE DNA, URINE [place] Start: 11-08-2017 IP CONSULT TO BABY FORMULA WORKER AL MEDICINE [place] Start: 11-08-2017 MISCELLANEOUS [...] RSV Vaccine (1 - 1-dose 75+ series) [facility] Start: 09-08-2031 Screening for malign ant neoplasm of colon [facility] Start: 05-31-2029 DTaP,Tdap and Td Vaccines (2 - Td or Tdap) DTaP,Tdap and Td Vaccines (2 - Td or Tdap) [facility] Start: 05-31-2029 DTaP/Tdap/Td vaccine (2 - Td or Tdap) DTaP/Tdap/Td vaccine (2 - Td or Tdap) [facility] Start: 05-31-2029 Tetanus vaccination Tetanus: Every 1 0yrs [facility] Start: 05-31-2029 Urine microalbumin profile DTaP,Tdap,Td Vaccine (2 - Td or Tdap) [facility] Start: 01-30-2025 End: 01-30-2025 Patient encounter procedure 01/30/2025 2:30 PM EDT Office Visit [facility] [address] [place] [address] Xena Marrufo MD [address] [place] [address] [facility] Start: 12-09-2024 Diabetes Screening Diabetes Screenin g [facility] Start: 09-07-2024 Screening for malign ant neoplasm of colon Colonoscopy [facility] Start: 09-04-2024 Adult BMI Screening Adult BMI Screen ing [facility] Start: 09-04-2024 Tobacco Screening Tobacco Screening [facility] Start: 08-29-2024 End: 08-29-2025 25-hydroxyvitamin D3 [Mass/volume] in Serum or Plasma Vitamin D 25 hydroxy Total Lab Routine Hypercalcemia Expected: 08/29/2024 (Approximate), Expires: 08/29/2025 [facility] Comment on above: Expected: 08/29/2024 (Approximate), Expires: 08/29/2025 Start: 08-29-2024 End: 08-29-2025 Magnesium [Mass/volume] in Serum or Plasma Magnesium Lab Routine Hypercalcemia Expected: 08/29/2024 (Approximate), Expires: 08/29/2025 [facility] Work Phone: Comment on above: Expected: 08/29/2024 (Approximate), Expires: 08/29/2025 Start: 08-29-2024 End: 08-29-2025 Parathyrin.intact [Mass/volume] in Serum or Plasma PTH, intact Lab Routine Hypercalcemia Expected: 08/29/2024 (Approximate), Expires: 08/29/2025 [facility] Comment on above: Expected: 08/29/2024 (Approximate), Expires: 08/29/2025 Start: 08-29-2024 End: 08-29-2025 Renal function panel Renal function panel Lab Routine Hypercalcemia Expected: 08/29/2024 (Approximate), Expires: 08/29/2025 [facility] Comment on above: Expected: 08/29/2024 (Approximate), Expires: 08/29/2025 Start: 08-29-2024 End: 08-29-2024 Patient encounter procedure 08/29/2024 1:50 PM EDT Office Visit [facility] [address] [place] [address] Xena Marrufo MD [address] [place] [address] [facility] Start: 07-04-2024 End: 07-04-2024 Patient encounter procedure 07/04/2024 9:00 AM EST Office Visit [facility] [address] [place] [address] Sharmaine Christine, OD [address] [place], [place] [id number] Return in about 6 weeks (around 07/04/2024) for 30 min dipolopia slot. Ophthalmology Comment on above: Return in about 6 we eks (around 07/04/2024) for 30 min dipolopia slot. Start: 04-13-2024 End: 04-13-2024 Patient encounter procedure 04/13/2024 10:30 AM EST Office Visit [facility] [address] [place] [address] Vandana Chen, [address] [place] [address] Arrived [facility] Comment on above: Arrived Start: 03-12-2024 End: 03-12-2024 Patient encounter procedure 03/12/2024 8:15 AM EDT Office Visit [facility] [address] [place] [id number] Gretchen Jensen, CLOTH BOIL OFF MACHINE OPERATOR [address] [place] [address] [facility] Start: 03-09-2024 End: 03-09-2024 ambulatory 03/09/2024 9:00 AM EDT Treatment [facility] [address] [place] [address] Ruby Asencio, OT [address] [place] [address] [facility] Start: 03-02-2024 End: 03-02-2024 ambulatory 03/02/2024 9:00 AM EDT Treatment [facility] [address] [place] [address] Ruby Asencio, OT [address] [place] [address] [facility] Start: 02-24-2024 End: 02-24-2024 ambulatory 02/24/2024 9:00 AM EDT Treatment [facility] [address] [facility] [address] [place] [address] Ruby Asencio, OT [address] [place] [address] [facility] Start: 02-10-2024 End: 02-10-2024 ambulatory [facility] Comment on above: Closed fracture of d istal end of right radius with routine healing, unspecified fracture morphology, subsequent encounter; Closed nondisplaced fracture of styloid process of right ulna with routine healing Start: 02-05-2024 Covid-19 Vaccine ( season) Covid-19 Vaccine ( season) [facility] Start: 02-05-2024 Influenza vaccination [facility] Start: 01-30-2024 End: 01-30-2024 Patient encounter procedure 01/30/2024 1:30 PM EDT Office Visit [facility] [address] [facility] [address] [place] [address] Gretchen Jensen NP [address] [facility] [address] [place] [address] Closed fracture of distal end of right [...] ant neoplasm of breast Breast cancer screen [facility] Start: 09-07-2022 Screening for malign ant neoplasm of colon [facility] Start: 05-03-2022 End: 04-26-2023 [place] [Moles/volume] in Serum or Plasma [place] [facility] Lab Routine Long-term use of high-risk medication Bipolar affective disorder, manic, severe, with psychotic behavior (HCC) Expected: 05/03/2022, Expires: 04/26/2023 [facility] Work Phone: Comment on above: Expected: 05/03/2022 , Expires: 04/26/2023 Start: 04-26-2022 End: 04-26-2022 Telemedicine consultation with patient 04/26/2022 Telemedicine Telephone Psychiatry Juan Adames MD [address] [facility] [address] [place] [id number] [facility] Start: 03-23-[address] [facility] Start: 03-12-2022 Hospital admission [facility] Start: 03-12-2022 Vitamin D, 25-hydrox y measurement [facility] Start: 03-12-[address] [facility] Start: 02-12-2022 End: 02-12-2022 Telemedicine consultation with patient 02/12/2022 Telemedicine Telephone Psychiatry Juan Adames MD [address] [place] [address] [facility] Start: 02-04-2022 Influenza vaccination Sequenti al Influenza Vaccine (#1) [facility] Start: 01-15-2022 End: 01-15-2022 Patient encounter procedure 01/15/2022 Office Visit Psychiatry Juan Adames MD [address] [facility] [address] [place] [address] [facility] Start: 08-02-2022 COVID-19 Vaccine (5 - Booster for Pfizer series) COVID-19 Vaccine (5 - Booster for Pfizer series) [facility] Start: 12-08-2021 End: 12-08-2021 Patient encounter procedure 12/08/2021 Office Visit Juan Chavez MD [address] [facility] [address] [place] [id number] [facility] Start: 11-11-2021 Screening for malign ant neoplasm of breast Mammogram [facility] Start: 10-29-2021 Screening for malign ant neoplasm of breast [facility] Start: 09-26-2021 History and physical examination, annual for health maintenance Wellness Visit [facility] Start: 09-14-2021 End: 09-14-2021 Patient encounter procedure 09/14/2021 Office Visit Juan Chavez MD [address] [facility] [address] [place] [id number] [facility] Start: 09-07-2021 COVID-19 Vaccine (4 - Booster for Pfizer series) COVID-19 Vaccine (4 - Booster for Pfizer series) [facility] Start: 03-11-2021 COVID-19 Vaccine (3 - Booster for Pfizer series) COVID-19 Vaccine (3 - Booster for Pfizer series) [facility] Start: 02-13-2021 End: 02-13-2021 Patient encounter procedure 02/13/2021 Office Visit Juan Chavez MD [address] [facility] [address] [place] [address] [facility] Start: 02-09-2021 COVID-19 Vaccine (3 - Booster for Pfizer series) COVID-19 Vaccine (3 - Booster for Pfizer series) [facility] Start: 02-04-2021 Influenza vaccination Sequenti al Influenza Vaccine (#1) [facility] Start: 11-24-2020 End: 11-24-2020 Office Visit 11/24/2020 Office Visit Juan Chavez MD [address] [facility] [address] [place] [address] [phone] [facility] Start: 09-22-2020 End: 09-22-2020 [place] [Moles/Vol] [place] Level Lab Routine Bipolar 1 disorder, manic, mild (HCC) KALEN (Generalized Anxiety Disorder) Long-term use of high-risk medication Expected: 09/22/2020, Expires: 09/22/2020 [facility] Comment on above: Expected: 09/22/2020 , Expires: 09/22/2020 Start: 09-22-2020 End: 09-22-2020 Urinalysis Urinalysis Lab Routine Bipolar 1 disorder, manic, mild (HCC) KALEN (Generalized Anxiety Disorder) Long-term use of high-risk medication Expected: 09/22/2020, Expires: 09/22/2020 [facility] Comment on above: Expected: 09/22/2020 , Expires: 09/22/2020 Start: 09-08-2020 COVID-19 Vaccine (2 - Pfizer 2-dose series) COVID-19 Vaccine (2 - Pfizer 2-dose series) [facility] Start: 08-22-2020 End: 08-22-2020 Office Visit 08/22/2020 Office Visit Psychiatry Juan Adames MD [facility] [place] [address] [phone] [facility] Start: 02-05-2020 Influenza vaccinatio n given Sequential Influenza Vaccine (#1) [facility] Start: 2019 Respiratory Syncytia l Virus (RSV) or age 60 yrs+ (1 - 1-dose 60+ series) Respiratory Syncytial Virus (RSV) or age 60 yrs+ (1 - 1-dose 60+ series) [facility] Start: 08-23-2015 Administration of he rpes zoster vaccine Zoster Vaccines (2 of 3) [facility] Start: 08-23-2015 Shingrix Vaccine (2 of 3) Shingrix Vaccine (2 of 3) [facility] Start: 11-03-2009 Administration of he rpes zoster vaccine Zoster Vaccines (1 of 2) [facility] Start: 11-03-2009 Pneumococcal Vaccine : 50+ (1 of 1 - PCV) Pneumococcal Vaccine: 50+ (1 of 1 - PCV) [facility] Start: 11-03-2009 Screening for malign ant neoplasm of colon [facility] Start: 11-03-2004 Lipid panel Lipid Screening [facility] Start: 11-03-2004 Screening for malign ant neoplasm of colon [facility] Start: 1999 Lipid panel Lipids [facility] Start: 11-03-1989 Screening for malign ant neoplasm of cervix [facility] Start: 11-03-1980 Screening for malign ant neoplasm of cervix [facility] Start: 11-03-1977 Adult BMI Follow Up Plan Adult BMI Follow Up Plan [facility] Start: 11-03-1977 Anxiety Screening Anxiety Screening [facility] Start: 11-03-1977 Depression Screening Depression Scre ening [facility] Start: 11-03-1977 Hepatitis C antibody , confirmatory test Hepatitis C Screening [facility] Start: 11-03-1977 Hepatitis C screening [facility] Start: 11-03-1977 HIV screening HIV Screening [facility] Start: 11-03-1974 HIV screening [facility] Start: 1971 Adolescent depressio n screening assessment [facility] Start: 1971 Depression [facility] Start: 11-03-1969 Albumin DL <= 20 mg/ L (U) [Mass/Vol] Urine Microalbumin [facility] Start: 11-03-1969 Microalbumin measurement, urine, quantitative Urine Microalbumin [facility] Start: 11-03-1969 Urine screening for protein Urine Microalbumin [facility] Start: 11-03-1965 Pneumococcal Vaccine : Ped or At-Risk (1 - PCV) Pneumococcal Vaccine: Ped or At-Risk (1 - PCV) [facility] Start: 11-03-1965 Pneumococcal Vaccine : Ped or At-Risk (1 of 4 - PCV13) Pneumococcal Vaccine: Ped or At-Risk (1 of 4 - PCV13) [facility] Start: 11-03-1962 History and physical examination, annual for health maintenance Wellness Visit [facility] Start: 1959 Screening for malign ant neoplasm of cervix Pap Smear [facility] Start: 1959 Screening for malign ant neoplasm of colon [facility] Start: 1959 Screening mammography Mammogram [facility] Start: 1959 Tetanus vaccination Tetanus: Every 1 0yrs [facility] Bacteria identified in Urine by Culture [facility] Calculated LDL cholesterol level [facility] Work Phone: Cholesterol [Mass/volume] in Serum or Plasma [facility] Work Phone: Cholesterol in HDL [Mass/volume] in Serum or Plasma [facility] Work Phone: Cholesterol.total/Ch oles terol in HDL [Mass Ratio] in Serum or Plasma [facility] Work Phone: End: 08-22-2021 Comprehensive metabolic 2000 panel Comprehensive Metabolic Panel Lab Routine Bipolar 1 disorder, manic, mild (HCC) KALEN (Generalized Anxiety Disorder) Long-term use of high-risk medication 1 Occurrences starting 08/22/2020 until 08/22/2021 [facility] Comment on above: 1 Occurrences starti ng 08/22/2020 until 08/22/2021 Patient Education Schizophrenia (DC) [facility] DC Instructions [facility] Work Phone: Patient referral [facility] Work Phone: Renal function 2000 panel - Serum or Plasma [facility] Renal function 2000 panel - Serum or Plasma [facility] Thyrotropin [Units/volume] in Serum or Plasma [facility] Work Phone: Triglyceride [Mass/volume] in Serum or Plasma [facility] Work Phone: End: 08-22-2021 TSH Qn TSH Lab Routine Bipolar 1 disorder, manic, mild (HCC) KALEN (Generalized Anxiety Disorder) Long-term use of high-risk medication 1 Occurrences starting 08/22/2020 until 08/22/2021 [facility] Comment on above: 1 Occurrences starti ng 08/22/2020 until 08/22/2021 Vitamin D, 25-hydrox y measurement [facility] Work Phone: VLDL cholesterol measurement [facility] Work Phone: [facility] Immunizations Immunization Date Immunization Notes Care Provider Fa cili 04-26-2023 influenza virus vaccine, unspecified formulation Radha Penaloza COMPLAINT INVESTIGATOR-INJECTION MOLDING MACHINE OFFBEARER Work Phone: [facility] 05-31-2019 tetanus toxoid, redu terrell diphtheria toxoid, and acellular pertussis vaccine, adsorbed Radha Penaloza COMPLAINT INVESTIGATOR-INJECTION MOLDING MACHINE OFFBEARER Work Phone: [facility] 05-28-2019 Influenza, injectabl e, [place] Canine Kidney, preservative free, quadrivalent Radha Penaloza COMPLAINT INVESTIGATOR-INJECTION MOLDING MACHINE OFFBEARER Work Phone: [facility] 05-28-2019 influenza virus vaccine, unspecified formulation Christine Brown OD Work Phone: [facility] 03-24-2018 influenza, injectabl e, quadrivalent, preservative free Radha Penaloza COMPLAINT INVESTIGATOR-INJECTION MOLDING MACHINE OFFBEARER Work Phone: [facility] 06-28-2015 zoster vaccine, live Radha Penaloza COMPLAINT INVESTIGATOR-INJECTION MOLDING MACHINE OFFBEARER Work Phone: [facility] 02-17-2011 influenza, seasonal, injectable Radha Penaloza COMPLAINT INVESTIGATOR-INJECTION MOLDING MACHINE OFFBEARER Work Phone: [facility] 04-23-2009 novel [id number], preservative-free, injectable Radha Penaloza COMPLAINT INVESTIGATOR-INJECTION MOLDING MACHINE OFFBEARER Work Phone: [facility] Payers Date Payer Category Payer Private Health Insurance [id number] 2.7.9.570313.108155.315 2022 Unknown 1.2.840.401764. 1.13.385. 2.7.3.817642.315 2021 Self-pay [id number] 2017 Unknown [id number] 2014 Medicare [id number] 1959 Unknown [id number] 2.16.840.1.497530.3.579. 2.903 1959 Unknown [id number] 2.16.840.1.648675.3.579. 2.903 1959 Unknown [id number] 2.16.840.1.894195.3.579. 2.903 1959 Unknown [id number] 2.16.840.1.386848.3.579. 2.903 1959 Unknown [id number] 2.16.840.1.380919.3.579. 2.903 1959 Unknown [id number] 2.16.840.1.474194.3.579. 2.903 1959 Unknown [id number] 2.16.840.1.909331.3.579. 2.903 1959 Unknown [id number] 2.16.840.1.474826.3.579. 2.903 1959 Unknown [id number] 2.16.840.1.610030.3.579. 2.593 1959 Unknown [id number] 2.16.840.1.924183.3.579. 2.593 1959 Unknown [id number] 2.16.840.1.609778.3.579. 2.593 1959 Unknown [id number] 2.16.840.1.631367.3.579. 2.593 1959 Unknown [id number] 2.16.840.1.962186.3.579. 2.593 1959 Unknown [id number] 2.16.840.1.386756.3.579. 2.593 1959 Unknown [id number] 2.16.840.1.149041.3.579. 2.593 1959 Unknown [id number] 2.16.840.1.652701.3.579. 2.177 1959 Unknown [id number] 2.16.840.1.178720.3.579. 2.1286 1959 Unknown [id number] 2.16.840.1.459164.3.579. 2.1286 1959 Unknown [id number] 2.16.840.1.062877.3.579. 2.1258 1959 Unknown [id number] 2.16.840.1.633620.3.579. 2.1258 1959 Unknown [id number] 2.16.840.1.143174.3.579. 2.1258 1959 Unknown [id number] 2.16.840.1.849923.3.579. 2.1258 1959 Unknown [id number] 2.16.840.1.514934.3.579. 2.1258 1959 Unknown [id number] 2.16.840.1.713696.3.579. 2.1258 1959 Unknown [id number] 2.16.840.1.579638.3.579. 2.1258 1959 Unknown [id number] 2.16.840.1.542442.3.579. 2.1258 1959 Unknown [id number] 2.16.840.1.095423.3.579. 2.1258 1959 Unknown [id number] 2.16.840.1.051189.3.579. 2.1258 1959 Unknown [id number] 2.16.840.1.580143.3.579. 2.1258 1959 Unknown [id number] 2.16.840.1.289390.3.579. 2.1258 1959 Unknown [id number] 2.16.840.1.948038.3.579. 2.1258 1959 Unknown [id number] 2.16.840.1.655459.19 Medicare [id number] 2.16.840.1.854940.19 Unknown [facility] [id number] Effective for all dates [phone] [address] [address] [place] [address] [id number] 1.2.840.222129.1.13.385. 2.7.3.533725.315 Unknown [id number] 2.840.1.608590.3.579. 2.531 Unknown [id number] 2.840.1.030159.3.579. 2.531 Unknown [id number] 840.1.903573.19 Social History Date Type Detail Facility Tobacco smoking stat [facility] Unknown if ever smoked [facility] Start: 1960 Sex Assigned At Not on file [facility] Start: 08-22-2020 End: 10-10-2023 Tobacco smoking status ARIS Never smoker [facility] Start: 08-22-2020 End: 10-10-2023 Tobacco use and exposure Never used [facility] Start: 08-22-2020 End: 06-14-2024 Alcohol intake Ex-drinker (finding) [facility] Start: 09-04-2021 End: 06-21-2022 Exposure to SARS-CoV-2 (event) Not sure [facility] Start: 08-22-2020 End: 01-30-2024 Cigarette pack-years [facility] Start: 12-17-2018 End: 01-30-2024 Sex Assigned At [facility] Start: 1960 Sex Assigned At Female [facility] Start: 10-26-2017 End: 09-05-2023 Alcohol intake Current non-drinker of alcohol (finding) [facility] National Score (1-10 0), lower number is lower risk 80 [facility] Start: 01-11-2019 Alcohol Comment 2009 [facility] Start: 10-02-2019 Gender identity Identifies as female gender (finding) [facility] Start: 10-02-2019 Sexual orientation Heterosexual (finding) [facility] Medical Equipment Procedure Code Equipment Code Equipment Origin al Text Equipment Identifier Dates Sut Anch Pushlk Bcmps 3.5x19.5 Ster Disp 5ea/Po Ln Required - [id number] - [id number] BC, [id number] FDA Start: 07-27-2017 Suture [place] Sw ivel - [id number] - [id number], [id number] FDA Start: 07-27-2017 Fiberlink - Ness 7235 - [id number] Start: 07-27-2017 Plate Bn 16g0u7z m 1/3 Tblr 7 Hl Colr Lcp Ss .7mm 12mm Ns - Sna - [id number] Start: 12-09-2021 Screw Bn 12mm 3. [address] Lp Hd Sm Hex Sckt Jerrod Ss 2.5mm Rpl Special Item [id number] - Sna - [id number] Start: 12-09-2021 Screw Bn 14mm 3. [address] Lp Sm Hex Jerrod Ss Ns Rpl Special Item [id number] - Sna - [id number] Start: 12-09-2021 Screw Bn 26mm 3. [address] Lp Sm Hex Jerrod Ss Ns Rpl [id number] - Sna - [id number] Start: 12-09-2021 Screw Bn 16mm 4m m 6mm Sm Hex Sckt Canc Ss 2.5mm Ft Ns Sm - Sna - [id number] Start: 12-09-2021 Goals Date Patient Goal Desired Activity /State Personal health goal Comment on above: Formatting of this n ote might be different from the original. Evaluation of progress towards goal: Patient plans to discharge home with self care and with family assistance Functional Status Date Assessment Result Facility 03-23-2022 Functional status [facility] at [facility] Work Phone: Mental Status Date Assessment Result Facility 03-23-2022 Cognitive function Cognitive Sta tus Patient at [facility] Work Phone: Clinical Notes 01-27-2021 to 08-29-2024 Xena Marrufo MD - 08/29/2024 1:50 PM Christine Castro OD - 07/04/2024 9:38 AM Christine Saenz OD - 05/23/2024 11:34 AM ESTPatient InstructionsDischarge InstructionsAttachments Note Date & Type Note Facility 08-29-2024 History of Present illness Narrative Nola Waller is a 63 y.o. female Xena Marrufo MD presents with chief complaint of Thyroid Problem and Follow-up (LAB) HPI: Interim History 08/2024 Followup visit 08/29/2024 for lab. [id number] (15-65), GFR 31,clacium 10.4 (8.7-10.2), vitamin D 38 Interim History 08/2023 Followup visit 08/31/2023 for lab. PTH 62 (15-62), GFR 39,clacium 9.6 (8.5-10.2), phosphorus normal at 4.1 (2-4.6), vitamin D 32. Interim History 02/2023: Followup visit 03/02/2023 for lab. PTH-related peptide less than 2, SPEP within normal limits, PTH 52 (15-62), 24-hour urine calcium 257 (100-300 mg), 24-hour creatinine 737 (800-1800) GFR 33,clacium 10.2 (8.5-10.2), phosphorus normal at 4 (2-4.6), vitamin D 30, magnesium 2.4 (1.8-2.4). DEXA scan not done. HPI: 01/2023 New patient sent from Dr. Zachary Pascual for hypercalcemia, 10.5 (8.3-10.1) and parathyroid hormone, 88 (15-67), GFR 29 and vitamin D 34. She is off calcium supplement or multivitamin and her audiometric technician thinks she might have primary hyperparathyroidism. She has bipolar disorder and she is on lithium 900 mg daily. SUBJECTIVE: MEDICATIONS: Current Outpatient Medications Medication Instructions clonazePAM (KLONOPIN) 1 mg, Nightly Docusate Sodium (DSS) 100 MG capsule 1 capsule as needed Orally Once a day lithium 600 mg, Nightly Misc Natural Products (Neuriva) capsule as directed Orally OLANZapine (ZyPREXA) 15 MG tablet 1 tablet, Daily omega-3 (fish oil) 1000 MG capsule 1 capsule, Every 24 hours ALLERGIES: Allergies Allergen Reactions Chlorpromazine Other Reaction(s): muscle cramps, neck stiffness, Other: See Comments Other reaction(s): muscle cramps, Other: See Comments Caused lock jaw in combination with Stelazine Caused facial jaw to lock when used in combination with stelazine Caused facial jaw to lock when used in combination with stelazine Caused lock jaw in combination with Stelazine Trifluoperazine Other Reaction(s): muscle cramps, Other (See Comments) Other reaction(s): muscle cramps Caused jaw to lock when used in combination with thorazine when younger, for bipolar disorder Caused jaw to lock when used in combination with thorazine when younger, for bipolar disorder Other reaction(s): muscle cramps Caused jaw to lock when used in combination with thorazine when younger, for bipolar disorder Caused jaw to lock when used in combination with thorazine when younger, for bipolar disorder Past Medical History: Diagnosis Date Ankle fracture Bipolar 1 disorder (CMS/HCC) Chronic kidney disease, stage 3b (HCC) ([facility]) Depression ([facility]/HCC) GERD (gastroesophageal reflux disease) Hypercalcemia Hyperparathyroidism ([facility]/HCC) Hypertension ([facility]/HCC) Kidney disease Nystagmus Visual loss Vitamin D deficiency, unspecified Past Surgical History: Procedure Laterality Date ADENOIDECTOMY HYSTERECTOMY KNEE SURGERY TONSILLECTOMY WISDOM TOOTH EXTRACTION REVIEW OF SYMPTOMS: 14 POINT OF SYSTEM REVIEWED AND NEGATIVE OBJECTIVE: Visit Vitals BP (!) 138/97 Pulse 77 Resp 16 Ht 5' 3 Wt 157 lb SpO2 98% BMI 27.81 kg/m Smoking Status Never BSA 1.78 m Physical Exam Constitutional: Appearance: Normal appearance. She is normal weight. HENT: Head: Normocephalic and atraumatic. Right Ear: External ear normal. Nose: Nose normal. Mouth/Throat: Pharynx: Oropharynx is clear. Eyes: Extraocular Movements: Extraocular movements intact. Pupils: Pupils are equal, round, and reactive to light. Cardiovascular: Rate and Rhythm: Normal rate and regular rhythm. Pulmonary: Effort: Pulmonary effort is normal. Abdominal: General: Abdomen is flat. Palpations: Abdomen is soft. Musculoskeletal: General: Normal range of motion. Skin: General: Skin is warm. Neurological: General: No focal deficit present. Mental Status: She is alert. Psychiatric: Mood and Affect: Mood normal. Behavior: Behavior normal. ASSESSMENT AND PLAN: Assessment/Plan Diagnoses and all orders for this visit: Hypercalcemia - Ambulatory referral to ENT; Future - Magnesium; Future - Renal function panel; Future - Vitamin D 25 hydroxy Total; Future - PTH, intact; Future due to primary hyperparathyroidism Since PTH calcium high at the same time, even her kidney function in the low side 31, we will send her to Dr. Mccullough for possible surgery Hyperparathyroidism ([facility]) - Ambulatory referral to ENT; Future Vitamin D deficiency Vitamin-D 38. Chronic kidney disease, stage 3b (HCC) ([facility]) GFR 31 Follow up in about 4 months (around 12/29/2024). documented in this encounter [facility] 07-04-2024 Note HNO ID: [id number] Author: CHRISTINE BROWN OD Service: ? Author Type: UNIVERSITY DEMONSTRATOR Type: Progress Notes Filed: 07/04/2024 09:40 Note Text: Nola is a pleasant 63 year old female with the following conditions: 1. Downbeat nystagmus 2. Hypertropia of right eye Workup and diagnosed by Dr. Alcantara in 2019, likely due to [place] medication due to normal MRI Recent dilated [...] resolved once putting them on! Struggling in anabaptist with separate reading vs distance prism. Tried bifocals in past and did not adjust well. Can try lined bifocals in future as needed Continue with Dr. Chen for dilated fundus exams, me as needed for specs Pleasure to take care of her today. Christine Brown OD [facility] 07-04-2024 History of Present illness Narrative Nola is a pleasant 63 year old female with the following conditions: 1. Downbeat nystagmus 2. Hypertropia of right eye Workup and diagnosed by Dr. Alcantara in 2019, likely due to [place] medication due to normal MRI Recent dilated [...] resolved once putting them on! Struggling in anabaptist with separate reading vs distance prism. Tried bifocals in past and did not adjust well. Can try lined bifocals in future as needed Continue with Dr. Chen for dilated fundus exams, me as needed for specs Pleasure to take care of her today. Christine Brown OD documented in this encounter [facility] 05-23-2024 Note HNO ID: [id number] Author: CHRISTINE BROWN OD Service: ? Author Type: UNIVERSITY DEMONSTRATOR Type: Progress Notes Filed: 05/23/2024 11:37 Note Text: Nola is a pleasant 63 year old female ; accompanied and history given by ; with the following conditions: 1. Downbeat nystagmus 2. Hypertropia of right eye Workup and diagnosed by Dr. Alcantara in 2019, likely due to [place] medication due to normal MRI Recent dilated [...] care of her today. Christine Brown OD [facility] 05-23-2024 History of Present illness Narrative Nola is a pleasant 63 year old female ; accompanied and history given by ; with the following conditions: 1. Downbeat nystagmus 2. Hypertropia of right eye Workup and diagnosed by Dr. Alcantara in 2019, likely due to [place] medication due to normal MRI Recent dilated [...] Christine Brown, OD documented in this encounter [facility] 05-23-2024 Instructions Christine Brown, OD - 05/23/2024 10:51 AM EST Line guide: https://www.[employer] ipaovgpv-Wbi-ilw-Trakker-Reading/ dp/[email or web address]/ref=sr_1_32?oksana=eyJ 5UlroHNH8.nDTZOE--pPnm0fACdl361PM 2wpvfBPSukucDEtFsSEX6mVx80CQonFIX aZWQJW2YM2aVZdb34n_ZJzxWgbqX_d7kV Ddn3ZZAcP-oUZn_OPwdjAorXiHT_ 8l3Lnh6HkEjgZ5cRRzs5X5zFmMagxsVC2 rcLTyPj606MCe4D_N8zB8gU5TuHTNI34l Af0zA5wSR6xJeQu-t6ssORSXljPbNUBHL IMoHhgwC-lINIyAEhiVEs4a3rFqR_05WL p-FV5oYCf_xql2yNDKVWtp36NBbiNx5w3 Bj9L33ZqLCSSueq5R66s25NjJ7eTBQvBs otOVsWASakTAnwV5STX0E7Ct_tcqWgHxN DwQ3Qie5RTuh2HhiJlbVU4o-jK-grXlT0 Le1IeHw-L7q2pxb8qKbcl_g32fOqc9S9C 7UfnJib-YRZU-165ywKLbaTXo-kWf.AFz NdNhFxH0ogl8-RzhTgskbhHuh7P4Mr0gJ hoSyQ_o&dib_tag=se&keywords=Line+ Guide&rrw=[id number]&sr=8-32 documented in this encounter [facility] 04-13-2024 History of Present illness Narrative Images from the original note were not included. Assessment/Plan Diagnoses and all orders for this visit: Downbeat nystagmus - I shared with Mrs. Waller and her my belief that her nystagmus was secondary to [place] usage. Although her plasma levels are normal [...] greater than 60minutes documented in this encounter [facility] 02-10-2024 History of Present illness Narrative Occupational Therapy Occupational Therapy Evaluation Visit Patient Name: Nola Waller Today's Date: 02/10/2024 Linked Episodes Type: Episode: Status: Noted: Resolved: Last update: Updated by: Occupational Therapy R wrist fx Active 01/30/2024 02/10/2024 9:46 AM Ruby Asencio OT Comments:Episode created from referral [id number] Visit number: 1 Subjective Interim History: 63 [...] 4+/5. Supination: 4+/5. Strength additional comments: R chief growth officer strength: 35# LP: 12# L chief growth officer strength: 45# LP: 9# Neurovascular Left Left [...] good toleration. HEP established for wrist stretches/ chief growth officer strengthening/ wrist strengthening. Written handout provided along [...] sign below. Date: documented in this encounter [facility] 01-30-2024 History of Present illness Narrative Subjective Patient ID: Nola Waller [...] Therapy Will send her to [facility] [place] [facility] [facility], f/U in 6-8 weeks, activities as tolerated documented in this encounter [facility] 10-08-2023 Hospital Discharge instructions Carrie Shipley APRN - CNP - 10/08/2023 7:34 PM EDT Tylenol or ibuprofen as directed ocez-pqo-iljbjlj for mild to moderate pain. Percocet pain medication for severe pain no drinking alcohol or driving if taking this medication, this medication can be habit-forming and cause constipation if you become constipated please use kskx-mph-ayddytu stool softener with stimulant; remember this medication also contains Tylenol/acetaminophen. Return to the ER: Fevers, atypical headaches, weakness or mentation changes, vomiting, increased or worsening pain in the right arm, pale right hand fingers, numbness; or any other concerning symptoms. The following attachments cannot be sent through Care Everywhere.Splint or Immobilizer Use (Zimbabwean)RICE: General Info (Zimbabwean)Wrist Fracture (Zimbabwean)documented in this encounter [facility] 09-22-2023 Miscellaneous Notes Patients called in saying [...] Patients verbalized understanding. documented in this encounter [facility] 09-22-2023 Telephone encounter Note Patients called in [...] full of the miralax. Patients verbalized understanding. [facility] 09-05-2023 History of Present illness Narrative Images from the original note [...] Medical History: Diagnosis Date Anxiety Bipolar affective ([facility]) Chronic constipation takes miralax and colace daily, keeps under control Chronic kidney disease stage 3, sees Dr. Zachary Pascual in [place] Dental disease caps Depression Pelvic mass Pneumonia 08/18/2019 admitted for overnight, took antibiotic and resolved Primary hypertension Rosacea Seasonal allergies Visual impairment glasses Past Surgical History: Procedure Laterality Date ARTHROSCOPY SHOULDER Right 07/27/2017 Performed by Steve Valentin DO at [facility] BREAST BIOPSY Left 2015 benign, needle bx. COLONOSCOPY every 5 years, approx 2016 for last COLONOSCOPY N/A 09/07/2021 Performed by Geraldo Ramirez DO at [facility] CYSTOSCOPY N/A 10/09/2019 Performed by Merritt Trinidad MD at [facility] DILATION AND CURETTAGE OF UTERUS x 2, in the remote past HYSTERECTOMY 2020 KNEE SURGERY years ago right, scope LAPAROSCOPIC HYSTERECTOMY / RSO / EXCISION PELVIC MASS N/A 10/09/2019 Performed by Merritt Trinidad MD at [facility] OOPHORECTOMY OPEN REDUCTION INTERNAL FIXATION ANKLE TRIMALLEOLAR Right 12/09/2021 Performed by Steve Valentin DO at [facility] Allergies Allergen Reactions Stelazine [Trifluoperazine] muscle cramps [...] patient/family/caregiver Referring and communicating with other health animal care supervisor Chronic constipation [K59.09] MIRIAM GOLD [facility] General Surgery [place] This note was created with the assistance of a speech recognition program. While intending to generate a timely document that accurately reflects the content of the visit, no guarantee can be provided that every grammatical or spelling mistake has been or will be identified or corrected. Thank you for your understanding. MIRIAM Gold 09/05/23 1533 documented in this encounter [facility] 07-06-2023 Evaluation note Encounter Date Diagnosis Assessment [...] patient is sent home pleased, without concerns. [facility] 10-18-2023 Evaluation note* Encounter Date Diagnosis [...] her to avoid magnesium based laxatives Mar, [place] use (ICD-10 - Z79.899) She has a bipolar disorder and currently takes lithium. Continue follow-up with psychiatrist and get periodically lithium level checked to avoid lithium toxicity. 18 Mar, 2023 Hypercalcemia (ICD-1 0 - E83.52) She has hypercalcemia with hyperparathyroidism. She denies any intake of the calcium and vitamin D supplement. She has unremarkable work-up for paraproteinemia. Mar, Hyperparathyroidism (ICD-10 - E21.3) She has hyperparathyroidism with hypercalcemia likely primary hyperparathyroidism. She was seen by Dr. Marrufo. Advised to continue to follow with Dr. Marrufo. [facility] 08-17-2023 Evaluation note* Encounter Date Diagnosis [...] ER or RTO. Symptoms have improved today [facility] 06-13-2023 Evaluation note* Encounter Date Diagnosis [...] her to avoid magnesium based laxatives Nov, [place] use (ICD-10 - Z79.899) She has a [...] likely primary hyperparathyroidism. I referred her to coal conveyor operator Dr. Marrufo. [facility] 01-18-2023 History of Present illness Narrative* [...] plan was discussed with patient. Impression/ Plan: [place] I: Bipolar disorder, type I, most recent episode mixed, severe with psychosis , generalized anxiety disorder [place] II: Deferred [place] III: CKD stage III [place] IV: other psychosocial or environmental problems [place] V: 51-60 moderate symptoms Recommendations: Treatment Plan: [...] Testing: None Juan Adames documented in this [id number] History of Present illness Narrative* Juan Adames MD - 05/10/2022 8:23 PM EST Telephone Visit Via Phone Call [facility] [phone] Telephone Visit [facility] 04/26/2022 Juan Adames MD Provider Location: [facility]. Patient Location Area Director: None Patient Location: Patient's Home Patient: Nola [...] there are inherent diagnostic limitations compared to jkox-dn-gctg evaluations. We elected toproceed with the telephone [...] She is tolerating the lithium well. Her audiometric technician is on board with lithium as per [...] visit: Long-term use of high-risk medication - [place] Level; Future Bipolar affective disorder, manic, severe, with psychotic behavior (HCC) - [place] Level; Future Other orders - lithium (ESKALITH) [...] and Plan of Care. documented in this [id number] Evaluation note* Encounter Date Diagnosis Assessment Notes [...] will check her renal function again. May, [place] use (ICD-10 - Z79.899) She has a [...] Calcium, Phos and Vit D are normal. [facility] Other 11-15-2022 History of Present illness Narrative* Juan Adames MD - 04/20/2022 11:32 AM EST BEHAVIORAL HEALTH PSYCHIATRIC PROGRESS NOTE 04/19/2022 Nola Waller, a 61 y.o. female, psychotropic medication management follow-up Patient is referred by Santa Augustin MD . Interval History: Patient is seen in office for psychotropic medication management follow-up and hospital follow-up. Patient was hospitalized at [facility] from 03/11 to 03/23/2022 for [...] plan was discussed with patient. Impression/ Plan: [place] I: Bipolar disorder, type I, most recent episode manic with psychosis [place] II: Deferred [place] III: CKD stage III [place] IV: other psychosocial or environmental problems [place] V: 51-60 moderate symptoms Recommendations: Treatment Plan: [...] Testing: None Juan Adames documented in this [id number] Progress note Author Marco A Zaman [facility] March 22, 2022 3:02pm Note Date/Time March 22, 2022 3 :00pm [facility] [address] [place] [address] Psychiatry Progress Note Signed Patient: Nola Waller MR#: [id number] 1468 : 1960 Acct:[id number] Age/Sex: 61 / F Adm Date: 2 Loc: Room: [address] [place] [address] Type : ADM IN Attending Dr: Marco [...] Documented By: Marco A Zaman MD 03/22/22 1459 Signed By: <Electronically signed by Marco A Zaman MD> 03/22/22 1699 [facility] Work Phone: 1(206) 698-871810-16-2022 Progress note Author Horacio bethea [facility] March 21, 2022 9:54am Note Date/Time March 21, 2022 9 :52am [facility] [address] [place] [address] Psychiatry Progress Note Signed Patient: Nola Waller MR#: [id number] 1468 : 1960 Acct:[id number] Age/Sex: 61 / F Adm Date: 2 Loc: Room: 0I3795-8 Type : ADM IN Attending Dr: Marco [...] signed by Horacio Kim MD> 03/21/22 0954 [facility] Work Phone: 1(324) 391-649010-15-2022 Progress note Author Horacio bethea [facility] March 20, 2022 9:19am Note Date/Time March 20, 2022 9 :19am [facility] [address] [place] [address] Psychiatry Progress Note Signed Patient: Nola Waller MR#: [id number] 1468 : 1960 Acct:[id number] Age/Sex: 61 / F Adm Date: 2 Loc: 1S Room: [address] [place] [address] Type : ADM IN Attending Dr: Marco [...] <Electronically signed by Horacio Kim MD> 03/20/22918 [facility] Work Phone: 1(564) 159-877810-14-2022 Progress note Author Horacio bethea [facility] March 19, 2022 9:03am Note Date/Time March 19, 2022 9 :03am [facility] [address] [place] [address] Psychiatry Progress Note Signed Patient: Nola Waller MR#: [id number] 1468 : 1960 Acct:[id number] Age/Sex: 61 / F Adm Date: 2 Loc: Room: [address] [place] [address] Type : ADM IN Attending Dr: Marco [...] alternatives explained Documented By: Horacio Kim MD 901 Signed By: <Electronically signed by Horacio Kim MD> 03/19/22902 [facility] Work Phone: [phone] Progress note Author Horacio bethea [facility] March 18, 2022 8:44am Note Date/Time March 18, 2022 8 :44am [facility] [address] [place] [address] Psychiatry Progress Note Signed Patient: Nola Waller MR#: [id number] 1468 : 1960 Acct:[id number] Age/Sex: 61 / F Adm Date: 2 Loc: Room: 7G9322-4 Type : ADM IN Attending Dr: Marco [...] signed by Horacio Kim MD> 03/18/22 0844 [facility] Work Phone: 1(282) 668-721710-12-2022 Hospital Discharge instructions Additional Instructions Invega Sustenna 234mg injection given 03/17/2022. Invega Sustenna 156mg booster injection given 03/22/2022. Invega Injection Due on 04/19/2022 You have completed your course of antibiotics Regular diet. No activity restrictions.[facility] Work Phone: 1(849) 100-226810-12-2022 Progress note Author Horacio bethea [facility] March 17, 2022 9:33am Note Date/Time March 17, 2022 9 :31am [facility] [address] [place] [address] Psychiatry Progress Note Signed Patient: Nola Waller MR#: [id number] 1468 : 1960 Acct:[id number] Age/Sex: 61 / F Adm Date: 2 Loc: Room: 7U9343-6 Type : ADM IN Attending Dr: Marco [...] signed by Horacio Kim MD> 03/17/22 0933 [facility] Work Phone: 1(189) 588-456910-11-2022 Progress note Author Horacio bethea [facility] March 16, 2022 9:48am Note Date/Time March 16, 2022 9 :47am [facility] [address] [place] [address] Psychiatry Progress Note Signed Patient: Nola Waller MR#: [id number] 1468 : 1960 Acct:[id number] Age/Sex: 61 / F Adm Date: 2 Loc: Room: [address] [place] [address] Type : ADM IN Attending Dr: Marco [...] 2 46 Signed By: <Electronically signed by Horaico Kim MD> 03/16/22 0948 [facility] Work Phone: 1(771) 865-667610-10-2022 Progress note Author Horacio bethea [facility] March 15, 2022 8:53am Note Date/Time March 15, 2022 8 :52am [facility] [address] [place] [address] Psychiatry Progress Note Signed Patient: Nola Waller MR#: [id number] 1468 : 1960 Acct:[id number] Age/Sex: 61 / F Adm Date: 2 Loc: Room: [address] [place] [address] Type : ADM IN Attending Dr: Marco [...] signed by Horacio Kim MD> 03/15/22 0853 [facility] Work Phone: 1(140) 211-566110-09-2022 Progress note Author MarcoA Zaman [facility] March 14, 2022 11:32am Note Date/Time March 14, 2022 11 :32am [facility] [address] [place] [address] Psychiatry Progress Note Signed Patient: Nola Waller MR#: [id number] 1468 : 1960 Acct:[id number] Age/Sex: 61 / F Adm Date: 2 Loc: Room: [address] [place] [address] Type : ADM IN Attending Dr: Marco [...] <Electronically signed by Marco A Zaman MD> 03/14/22 1132 [facility] Work Phone: 1(860) 869-142910-08-2022 Progress note Author Marco A Zaman [facility] March 13, 2022 12:25pm Note Date/Time March 13, 2022 12 :25pm [facility] [address] [place] [address] Psychiatry Progress Note Signed Patient: Nola Waller MR#: [id number] 1468 : 1960 Acct:[id number] Age/Sex: 61 / F Adm Date: 2 Loc: Room: [address] [place] [address] Type : ADM IN Attending Dr: Marco [...] explained Documented By: Marco A Zaman MD 03/13/22 1223 Signed By: <Electronically signed by Marco A Zaman MD> 03/13/22 1228 [facility] Work Phone: [phone] 389-524510-07-2022 History and physical note Author Marco A Zaman [facility] March 12, 2022 5:35pm Note Date/Time March 12, 2022 5: 29pm [facility] [address] [place] [address] Psychiatry H&P Signed Patient: Nola Waller MR#: [id number] 1468 : 1960 Acct:[id number] Age/Sex: 61 / F Adm Date: 2 Loc: Room: [address] [place] [address] Type: ADM IN Attending Dr: Marco A [...] does admit its time to work on [employer] . She is oriented to person and date. She believed she was at [facility] Patient is extremely tearful on exam. [...] delayed responsewhen questions asked. She admits to [facility]. Recent medication changes discussed. Client questions if [...] Appearance Clear Urine pH 6.5 Ur Specific [place] 1.007 Urine Protein Negative Urine Glucose (UA) [...] signed by Marco A Zaman MD> 03/12/22 8914 [facility] Work Phone: 1(671) 486-787110-07-2022 NoteBedside Glucose CommentOctober 2021 6:09amSee commentGlu2: Procedure ErrorPoint of Care [facility] above:Glu2: Procedure [id number] History of Present illness Narrative* Juan Adames MD - 02/12/2022 2:36 PM EDT Telephone Visit Via Phone Call [facility] [phone] Telephone Visit [facility] 02/12/2022 Juan Adames MD Provider Location: [facility] Patient Location Area Director: None Patient Location: Patient's Home Patient: Nola [...] there are inherent diagnostic limitations compared to fkyc-iu-tkai evaluations. We elected toproceed with the telephone [...] and Plan of Care. documented in this [id number] History of Present illness Narrative* Juan Adames [...] after discontinuation of lithium. documented in this [id number] History of Present illness Narrative* Juan Adames [...] reviewed: Data review needed, labs obtained from [place] Response to Medication: Adequate ASSESSMENT AND PLAN: [...] are completed Juan Adames documented in this [id number] Telephone encounter Note* Telephone Encounter - Yuni Negron CNP - 08/25/2021 1:49 PM EDT Prescription for Clonazepam 1mg at bedtime #30, 0RF written to continue medication written for patient by provider, Dr. Adames. [facility] Work Phone: [phone] Miscellaneous Notes* Telephone Encounter - Yuni Negron [...] in another refill request. documented in this [id number] Telephone encounter Note* Telephone Encounter - Obdulia [...] I will put in another refill request. [id number] Telephone encounter Note* Telephone Encounter - Yuni Negron CNP - 08/24/2021 4:22 PM EDT Ms. Waller has 1 refill remaining for Clonazepam 1mg nightly according to [facility]. Asked staff to let her know. [facility] Work Phone: [phone] Miscellaneous Notes* Telephone Encounter - Yuni Negron [...] her pharmacist. Thank you! documented in this [id number] Telephone encounter Note* Telephone Encounter - Yuni Negron CNP - 08/24/2021 8:24 AM EDT It appears that Ms. Waller has one refill remaining according to OARSS checked this morning. Please ask her to check with her pharmacist. Thank you! [id number] Evaluation note* Encounter Date Diagnosis Assessment Notes [...] an appointment to be seen in follow-up [facility] [employer] [facility] Other 10-27-2021 Evaluation note* Encounter Date Diagnosis Assessment Notes Treatment Notes Treatment Clinical Notes Mar, Chronic kidney disease, stage 3b (ICD-10 - N18.32) She has a CKD likely due to the chronic interstitial nephritis due to the prolonged vitamin use. She has no evidence of hematuria and proteinuria on UA. Her renal ultrasound showed bilateral renal cortical atrophy and bilateral renal cysts. Mar, [place] use (ICD-10 - Z79.899) She has a [...] have advised him to stop the multivitamin [employer] Other 10-04-2021 History of Present illness Narrative* [...] and motivation. She has been going to [employer] and working out. Patient denies any ongoing [...] reviewed: Data review needed, labs obtained from [place] Response to Medication: Adequate ASSESSMENT AND PLAN: [...] Testing: None Juan Adames documented in this [id number] History of Present illness Narrative* Heidi Tenorio LPN - 01/27/2021 1:09 PM EDT Called and left message with medical records at [facility] letting them know that Dr. Adames wants all of patients lab work as far back as 5 years ago faxed to our office. Let them know that most of her labs had been ordered by Dr. Adames anyhow. Left my direct line and our fax number. documented in this encounterOhioHealthDischarge summary Author Marco A Zaman [facility] March 23, 2022 2:41pm Note Date/Time March 23, 2022 2 :37pm [facility] [address] [place] [address] Discharge Summary Signed Patient: Nola Waller MR#: [id number] 1468 : 1960 Acct:[id number] Age/Sex: 61 / F Adm Date: 2 Loc: Room: [address] [place] [address]: Marco A Zaman MD Copies [...] does admit its time to work on [employer] .? She is oriented to person and date.? She believed she was at [facility] Patient is extremely tearful on exam.? [...] diet. No activity restrictions. Instructions: Schizophrenia (DC), [facility] [place] Instructions Prescriptions: New oxcarbazepine [...] 03/25/22 9:30 am (Therapy with Shawn Carlos) [facility]line [Outside] Documented By: Marco A Zaman MD 03/23/22 1435 Signed By: <Electronically signed by Marco A Zaman MD> 03/23/22 1441 [facility] Work Phone: Evaluation note* Diagnosis KALEN (generalized anxiety disorder) Generalized anxiety disorder [facility] Diagnosis KALEN (generalized anxiety disorder) Generalized anxiety disorder documented [facility]* Diagnosis KALEN (generalized anxiety disorder) Generalized anxiety disorder documented [facility]* Diagnosis Anxiety- Primary Anxiety state, unspecified [facility] Diagnosis KALEN (generalized anxiety disorder) Generalized anxiety disorder [facility]* Diagnosis KALEN (generalized anxiety disorder)- Primary Generalized anxiety disorder Bipolar 1 disorder, manic, mild (HCC) Long-term use of high-risk medication Anxiety Anxiety state, unspecified documented in this encounter [facility] noteNo [employer] Other evaluation note* Diagnosis Bipolar 1 disorder, manic, moderate (HCC)- Primary Anxiety Anxiety state, unspecified [facility]* Diagnosis Onset Date Resolution Status Hallucinations acute UTI (urinary tract infection) acute [facility] Work Phone: evaluation note* Diagnosis Onset Date Resolution Status Hallucinations acute Schizophrenia acute UTI (urinary tract infection) acute [facility] Work Phone: evaluation note* Diagnosis Bipolar affective disorder, manic, severe, with psychotic behavior (HCC)- Primary Bipolar I disorder, most recent episode (or current) manic, severe, specified as with psychotic behavior KALEN (generalized anxiety disorder) Generalized anxiety disorder documented [facility]* Diagnosis Long-term use of high-risk medication- Primary Bipolar affective disorder, manic, severe, with psychotic behavior (HCC) Bipolar I disorder, most recent episode (or current) manic, severe, specified as with psychotic behavior [facility]* Diagnosis Onset Date Resolution Status CKD (chronic kidney disease) stage 3, GFR 30-59 ml/min acute Hypercalcemia acute Hyperparathyroidism acute [place] use [facility] Work Phone: evaluation note* Diagnosis Closed fracture of right wrist, initial encounter- Primary documented in this encounter [facility] note* Diagnosis Onset Date Resolution Status CKD (chronic kidney disease) stage 3, GFR 30-59 ml/min acute Hypercalcemia acute Hyperlipidemia acute Hyperparathyroidism acute [place] use acute [facility] Work Phone: Evaluation note* Diagnosis Downbeat nystagmus- Primary Diplopia Age-related nuclear cataract of both eyes Dry eyes Unspecified tear film insufficiency [facility] Diagnosis Closed fracture of distal end of right radius with routine healing, unspecified fracture morphology, subsequent encounter- Primary Closed nondisplaced fracture of styloid process of right ulna with routine healing [facility] Diagnosis Closed fracture of distal end of right radius with routine healing, unspecified fracture morphology, subsequent encounter Closed nondisplaced fracture of styloid process of right ulna with routine healing [facility]* Diagnosis Downbeat nystagmus- Primary Other forms of nystagmus Hypertropia of right eye documented in this encounter [facility]* Diagnosis Downbeat nystagmus- Primary Other forms of nystagmus Hypertropia of right eye documented in this encounter [facility] [place] [facility]* Diagnosis Chronic constipation- Primary Unspecified constipation [facility] Diagnosis Hypercalcemia- Primary Hyperparathyroidism (CMS/HCC) Hyperparathyroidism, unspecified Vitamin D deficiency Chronic kidney disease, stage 3b (HCC) (CMS/HCC) documented [facility] encounter [facility] Narrative - Reported* Type Description Date [...] D&C Hospitalization History SEE ABOVE Hospitalization History avox Other History general Narrative - Reported* Type [...] 09/2021 Hospitalization History SEE ABOVE Hospitalization History [facility] Other History general Narrative - Reported* Type [...] Hospitalization History SEE ABOVE Hospitalization History BI avox Other InstructionsNot on filedocumented in this encounter [facility]* Attachments The following attachments cannot be sent through Care Everywhere. * Constipation in adults (Zimbabwean) documented in [facility] HospitalReason for referral (narrative)* Consultation (Routine) - Authorized Specialty Diagnoses / Procedures Referred By Bishop alatorre Referred To Contact Occupational Therapy / Physical Therapy Diagnoses Closed fracture of distal end of right radius with routine healing, unspecified fracture morphology, subsequent encounter Closed nondisplaced fracture of styloid process of right ulna with routine healing Procedures FL OFFICE/OUTPATIENT NEW HIGH MDM 60 MINUTES Gretchen Jensen NP [address] [address] Kate Ruby, OT [address] [place] [address] Referral ID Status Reason Start Date Expiration Date Visits Requested Visits Authorized [id number] Authorized Consult and Treat 01/30/2024 07/28/2024 20 20 [facility] Narrative* Consultation (Routine) - Closed Specialty Diagnoses / Procedures Referred By Bishop alatorre Referred To Contact Occupational Therapy / Physical Therapy Diagnoses Closed fracture of distal end of right radius with routine healing, unspecified fracture morphology, subsequent encounter Closed nondisplaced fracture of styloid process of right ulna with routine healing Procedures FL OFFICE/OUTPATIENT NEW HIGH [facility] 60 MINUTES Apling, Gretchen B, CLOTH BOIL OFF MACHINE OPERATOR [address] [place] [address] Ruby Asencio, OT [address] [place] [address] Referral ID Status Reason Start Date Expiration Date V isits Requested Visits Authorized [id number] Closed Consult and Treat 01/30/2024 07/28/2024 20 20 [facility] Summary Purpose Family History No Family History [...] FoundDocuments on File Type Date Recorded Patient Fingerprint Classifier Expl anation Advance Directives and Living Will [...] PM EDT Telephone Visit Via Phone Call [facility] [phone] Telephone Visit [facility] 08/22/2020 Juan Adames MD Provider Location: [facility] Patient Location Area Director: None Patient Location: Patient's Home Patient: Nola [...] there are inherent diagnostic limitations compared to ujno-cc-xukf evaluations. We elected toproceed with the telephone visit telemedicine consultation. Spouse is present. Audio quality was fair. Patient was able to engage well HPI Patient is a 59-year-old white female who has been under my care for the last 8 years at myprevious work location [facility]. Patient wants to continue her psychiatric management under my supervision at my new location with [facility]. Patient's working diagnosis is bipolar disorder [...] Reports fair energy and motivation. Patient [facility] work[facility]. Patient reports she has [...] 450 MG CR tablet Other Relevant Orders [place] Level Comprehensive Metabolic Panel TSH Urinalysis KALEN (Generalized Anxiety Disorder) Relevant Medications clonazePAM (KLONOPIN) 1 MG tablet Other Relevant Orders [place] Level Comprehensive Metabolic Panel TSH Urinalysis Other Visit Diagnoses Long-term use of high-risk medication Relevant Orders [place] Level Comprehensive Metabolic Panel TSH Urinalysis Global [...] stage 3, GFR 30-59 ml/min Hypercalcemia Hyperparathyroidism [place] use Chief Complaint RENAL 6 MONTH F/U Reason for Visit CKD (chronic kidney disease) stage 3, GFR 30-59 ml/min Hypercalcemia Hyperlipidemia Hyperparathyroidism [place] use Additional Source Comments INFORMATION SOURCE (unrecogn ized section and content) DATE CREATED AUTHOR 11/22/2017 [facility] DATE CREATED AUTHOR AUTHOR'S ORGANIZ ATION 04/23/2020 [facility] DATE CREATED AUTHOR AUTHOR'S ORGANIZ ATION 03/28/2022 [facility] DATE CREATED AUTHOR AUTHOR'S ORGANIZ ATION 06/22/2022 [facility] DATE CREATED AUTHOR AUTHOR'S ORGANIZ ATION 08/06/2022 [facility] DATE CREATED AUTHOR AUTHOR'S ORGANIZ ATION 10/09/2023 [facility] DATE CREATED AUTHOR AUTHOR'S ORGANIZ ATION 10/16/2023 [facility] DATE CREATED AUTHOR AUTHOR'S ORGANIZ ATION 07/06/2024 [facility] DATE CREATED AUTHOR AUTHOR'S ORGANIZ ATION 08/30/2024 [facility] EPIC Reason for Visit [...] MDM 45 MINUTES Vandana Chilel, DO [address] [place] [address] Christine Brown, OD [address] [place] [address] Referral ID Status Reason Start Date Expiration Date Visits Re quested Visits Authorized [id number] Closed 05/23/2024 06/05/2024 1 1 Specialty Diagnoses / Procedures Referred By Contac t Referred To Contact Optometry / OPHTHALMOLOGY Diagnoses Examination Return in about 6 weeks (around 07/04/2024) for 30 min dipolopia slot. Procedures OFFICE/OUTPATIENT ESTABLISHED MOD MDM 30 MIN EST Christine Rossi, OD [address] [place] [address] Christine Brown, OD [address] [place] [address] Referral ID Status Reason Start Date Expiration Date Visits Re quested Visits Authorized [id number] Closed 07/04/2024 06/05/2025 3 1 Reason Comments Constipation Chronic constipation , last colon 09/07/21 Reason Comments Thyroid Problem Follow-up LAB Care Teams (unrecognized sec tion and content) [...] April 03, 2024 End: April 03, 2024 Dictaphone Operator Relationship Specialty Start Date End Date Santa Augustin MD [address] [place] [address], [place] [address] PCP - General Family Medicine 07/09/20 Dictaphone Operator Relationship Specialty Start Date End Date Santa Augustin MD [address] [place] [address], [place] [address] PCP - General Family Medicine 07/09/20 Dictaphone Operator Relationship Specialty Start Date End Date Santa Augustin MD [address] [place] [address], [place] [address] PCP - General Family Medicine 07/09/20 Dictaphone Operator Relationship Specialty Start Date End Date Santa Augustin MD [address] [place] [address], [place] [address] PCP - General Family Medicine 07/09/20 Dictaphone Operator Relationship Specialty Start Date End Date Santa Augustin MD [address] [place] [address], [place] [address] PCP - General Family Medicine 07/09/20 Dictaphone Operator Relationship Specialty Start Date End Date Santa Augustin MD [address] [place] [address], [place] [address] PCP - General Family Medicine 07/09/20 Dictaphone Operator Relationship Specialty Start Date End Date Santa Augustin MD [address] [place] [address], [place] [address] PCP - General Family Medicine 07/09/20 Team [...] Zaman MD Admit Provider, Attending Provider Active Dictaphone Operator Relationship Specialty Start Date End Date Santa Augustin MD [address] [place] [address], [place] [address] PCP - General Family Medicine 07/09/20 Dictaphone Operator Relationship Specialty Start Date End Date Santa Augustin MD [address] [place] [facility] [place] [address] PCP - General Family Medicine 07/09/20 Dictaphone Operator Relationship Specialty Start Date End Date Santa Augustin MD [address] [place] [facility] [place] [address] PCP - General Family Medicine 07/09/20 Team [...] September 19, 2023 End: September 19, 2023 Dictaphone Operator Relationship Specialty Start Date End Date Santa Augustin MD PCP - General Family Medicine 10/26/17 Dictaphone Operator Relationship Specialty Start Date End Date Santa Augustin MD [address] [facility] [phone] PCP - General Family Medicine 10/10/23 Dictaphone Operator Relationship Specialty Start Date End Date Santa Augustin MD [address] [facility] [place] [phone] PCP - General Family Medicine 10/10/23 Dictaphone Operator Relationship Specialty Start Date End Date Santa Augustin MD [address] [facility] [phone] PCP - General Family Medicine 10/10/23 Dictaphone Operator Relationship Specialty Start Date End Date Santa Augustin MD [address] [facility] [place] [phone] PCP - General Family Medicine 10/10/23 Dictaphone Operator Relationship Specialty Start Date End Date Santa Augustin MD [address] [facility] [place] [phone] PCP - General Family Medicine 10/10/23 Dictaphone Operator Relationship Specialty Start Date End Date Santa Augustin MD [address] [facility] [place] [phone] PCP - General Family Medicine 10/10/23 Dictaphone Operator Relationship Specialty [place] [address] [place] [address], [place] [phone] PCP - General Family Medicine 12/14/11 Tim Barker MD [address] [facility] [address] [place] [address], [place] [address] Referring Neurology 01/09/19 Dictaphone Operator Relationship Specialty Start Date End Date Santa Augustin MD [address] [place] [phone] PCP - General Family Medicine 12/14/11 Tim Barker MD [address] [facility] [address] [place] [address] Referring Neurology 01/09/19 Dictaphone Operator Relationship Specialty Start Date End Date Santa Augustin MD [address] [place] [address] PCP - General 07/27/17 Dictaphone Operator Relationship Specialty Start Date End Date Santa Augustin MD [address] [place] [address] PCP - General 07/27/17 Dictaphone Operator Relationship Specialty Start Date End Date Santa Augustin MD [address] [place] [phone] PCP - General Family Medicine 10/10/23 Goals (unrecognized section and content) Goals may [...] or prosecute any alcohol or drug abuse patient.[facility]In the event this information is protected by the Federal Confidentiality of Alcohol and Drug Abuse Patient Records regulations: The Federal rules restrict any use of the information to criminally investigate or prosecute any alcohol or drug abuse patient.[facility] FOR RECORDS PERTAINING TO PATIENTS WHO [...] BE BASED ON THE PRIMARY CLINICAL RECORDS. [facility]. provides no warranty or guarantee of the accuracy or completeness of information in this document.
[2024-09-14 08:31] LABS: Albumin Level 3.8 g/dL (3.4-5.0); Anion Gap 9.7; BUN Creatinine Ratio 17.7; Calcium 10.1 mg/dL (8.5-10.1); Carbon Dioxide 28.1 mmol/L (21.0-32.0); Chloride 108 mmol/L (98-107); Estimated GFR (African America 40 (>=60 mL/min/1.73m^2); Estimated GFR (Non-African Ame 33 (>=60 mL/min/1.73m^2); Glucose 91 mg/dL (74-106); Potassium 4.8 mmol/L (3.5-5.1); Sodium 141 mmol/L (136-145)
== END 2024-09-14 07:34 | disposition home or self-care (01) ==
LOC: LAB 07:35
PROVIDERS: PCP Family Medicine; Visit Provider Internal Medicine
DX: E78.5 Hyperlipidemia, unspecified (principal); E83.52 Hypercalcemia; Z79.899 Other long term (current) drug therapy; N18.30 Chronic kidney disease, stage 3 unspecified
CPT/HCPCS: 36415; 80069

== ENCOUNTER 2025-04-05 09:34 | Outpatient (OUT) | payer OTHER, SELFPAY ==
--- OUTSIDE RECORDS SUMMARY | 2023-12-22 12:00 | XMS_ITS ---
Author Organization [facility] Address [address] [place] [address] Care Team Providers Care Police Worker Name Role Phone Mi Boss Primary Care Provider [phone] Jessie Singh [phone] REASON FOR VISIT 3 month f/u Encounters Encounter Location Date Provider Diagnosis [facility] [address] [place] [address] 12/22/2023 Jessie Kilgore Plan Of Treatment Next Appt Details Provider Name:Shanae Moreno Bertin garza, 04/24/2025 03:00:00 PM, [address] [place], [address], Provider Name:Shanae Moreno Bertin garza, 05/08/2025 04:00:00 PM, [address] [place], [address], Progress Notes * SHAILESH BAUTISTA:1960 ([age] yo F)Acc No.[id number]:12/22/2023 Behavioral Health Patient: RAN MATHEW Provider:?Jessie LealB:1960???Age:63 Y ???Sex:FemaleDate:4Phone:[phone]:BRITTANY VARGAS [phone]:Mi Boss Subjective: * Chief Complaints: * 3 month f/u * Electronic signature of DEVAUGHN Tijerina FNP on 04/05/2025 at 09:37 AM EDT Sign off status: Pending * Appointment Provider: Raquel Kilgore Date: 0 12/22/2023 Generated for Printing/Faxing/eTransmitting on:?04/05/2025 09:37 AM EDT
--- OUTSIDE RECORDS SUMMARY | 2025-01-10 11:00 | XMS_ITS ---
Author Organization [facility] Serv es Address [address] [place] [address] Care Team Providers Care Information Systems Auditor Name Role Phone Mi Boss Primary Care Provider [phone] REASON FOR VISIT 6 month f/u Encounters Encounter Location Date Provider Diagnosis [facility] [address] [place] [address] 01/10/2025 Mi Boss Plan Of Treatment Next Appt Details Provider Name:Shanae Denton greg, 04/24/2025 03:00:00 PM, [address] [place], [address], Provider Name:Shanae Denton greg, 05/08/2025 04:00:00 PM, [address] [place], [address], Progress Notes * JUAN BAUTISTAOB:1960 ([age] yo F)Acc No.[id number]:01/10/2025 Behavioral Health Patient: RAN MATHEW Provider:?Mi BossDOB:1960???Age:64 Y ???Sex:FemaleDate:01/10/2025Phone:[phone]:BRITTANY VARGAS [id number] Subjective: * Chief Complaints: * 6 month f/u * Electronic signature of CYNTHIA Guillen on 04/05/2025 at 09:36 AM EDTSign off status: Pending * Appointment Provider: Maria A Boss Date: 0 01/10/2025 Generated for Printing/Faxing/eTransmitting on:?04/05/2025 09:36 AM EDT
--- OUTSIDE RECORDS SUMMARY | 2025-01-10 11:15 | XMS_ITS ---
Author Organization [facility] es Address [address] [place] [address] Care Team Providers Care Bass Fisher Name Role Phone Mi Boss Primary Care Provider Shanae Knott [phone] REASON FOR VISIT ROMEO from Eric Boss Encounters Encounter Location Date Provider Diagnosis [facility] [address] [place] [address] 01/10/2025 Shanae Knott Plan Of Treatment Next Appt Details Provider Name:Shanae Moreno Shychristian greg, 04/24/2025 03:00:00 PM, [address] [place], [address], Provider Name:Shanae Moreno Bertin garza, 05/08/2025 04:00:00 PM, [address] [place], [address], Progress Notes * JUAN BAUTISTAOB:1960 ([age] yo F)Acc No.[id number]:01/10/2025 Behavioral Health Patient: RAN MATHEW :?Shanae KnottDOB:1960???Age:64 Y???Sex: FemaleDate:01/10/2025Phone:[phone]:[address] [id number]:Mi Boss Subjective: * Chief Complaints: * T OC from Eric Boss Billing Information: * Procedure Codes: * Electronic signature of RADHA KingHNAlessandro on 04/05/2025 at 09:37 AM EDT Sign off status: Pending * Provider: Tiffanie Knott Date: 0 01/10/2025 Generated for Printing/Faxing/eTransmitting on:?04/05/2025 09:37 AM EDT
--- OUTSIDE RECORDS SUMMARY | 2025-01-30 09:00 | XMS_ITS ---
Author Organization [facility] es Address [address] [place] [address] Care Team Providers Care Zipper Repairer Name Role Phone Mi Boss Primary Care Provider Shanae Knott [phone] REASON FOR VISIT ROMEO CC/guille 01/10/25 Encounters Encounter Location Date Provider Diagnosis [facility] [address] [place] [address] 01/30/2025 Shanae Knott Plan Of Treatment Next Appt Details Provider Name:Shanae garza, 04/24/2025 03:00:00 PM, [address] [place], [address], Provider Name:Shanae Tiffanie garza, 05/08/2025 04:00:00 PM, [address] [place], [address], Progress Notes * JUAN BAUTISTAOB:1960 ([age] yo F)Acc No.[id number]:01/30/2025 Behavioral Health Patient: RAN MATHEW :?Shanae KnottDOB:1960???Age:64 Y???Sex: FemaleDate:01/30/2025Phone:[phone]:[address] [id number]:Mi Boss Subjective: * Chief Complaints: * T OC CC/guille 01/10/25 * Electronic signature of Shanae Knott , PMHNP on 04/05/2025 at 09:36 AM EDT Sign off status: Pending * Provider: Tiffanie Knott Date: 0 01/30/2025 Generated for Printing/Faxing/eTransmitting on:?04/05/2025 09:36 AM EDT
--- OUTSIDE RECORDS SUMMARY | 2025-02-08 11:45 | XMS_ITS ---
Author Organization [facility] Servic es Address [address] [place] [address] Care Team Providers Care Finance Professional Name Role Phone Mi Boss Primary Care Provider Shanae Knott Unavailable [phone] REASON FOR VISIT Pt is a 64 year old female here with her , ROMEO from [facility], 7 month f/u, Pt states she is doing good, no concerns, LM Medications Medication SIG (Take, Route, Frequency, Duration) Notes Start Date End Date Status Stool Softener 100 MG Capsule 1 capsule as neede d Orally Once a day UnknownFish Oil Allouez-3 1000 MG Capsule1 capsule Orally Once a dayUnknown clonazePAM 1 MG Tablet1 tablet Orally Once a day; Duration: 30 days10/12/2024 Not-Taking/PRNclonazePAM 1 MG Tablet1 tablet Orally Once a day; Duration: 30 days10/12/2024Not-Taking/PRNNeuriva - Capsuleas directed OrallyUnknownLithium Carbonate ER 300 MG Tablet Extended ReleaseTake 1 tablet Orally twice daily; Duration: 30 daysActiveOLANZapine 15 MG Tablet1 tablet Orally once daily; Duration: 30 daysActiveclonazePAM 1 MG Tablet1 tablet Orally at bedtime; Duration: 30 daysFill per OARRS last [id number] Vital Signs Heart Rate 78 /min 02/08/2025 Height 63 in 02/08/2025 Weight 156.5 lbs 02/08/2025 BMI 27.72 kg/m2 02/08/2025 Oximetry 98 % 02/08/2025 Encounters Encounter Location Date Provider Diagnosis [place] [address] [place] [address] 02/08/2025 Shanae Knott Bipolar disorder, current episode mixed, severe, without psychotic features F31.63 Assessments Encounter Date Diagnosis (ICD Code) Assessment Notes Treatment Notes Treatment Clinical Notes Section Notes 02/08/2025 Bipolar disorder, cu rrent episode mixed, severe, without psychotic features (ICD-10 - F31.63) Plan Of Treatment Medication Medication Name Sig Start Date Stop Date Notes Cheswick Carbonate ER 300 MG Tablet Extended Release Take 1 tablet Orally twice daily; Duration: 30 days OLANZapine 15 MG Tablet1 tablet Orally once daily; Duration: 30 daysclonazePAM 1 MG Tablet1 tablet Orally at bedtime; Duration: 30 days12/19/2024Fill per OARRS last filledNext Appt Details Provider Name:Shanae garza, 04/24/2025 03:00:00 PM, [address] [place] [address], [address], Provider Name:Shanae garza, 05/08/2025 04:00:00 PM, [address] [place] [address], [address], History and Physical Notes * Examination CategorySub-CategoryDetailNotesCategory NotesGeneral Examination . MENTAL STATUS EXAM: . Appearance: Appropriately dressed and groomed, good eye contact, cooperative, pleasant Behavior/Motor Activity: Normal Gait/Station: Within normal limits Speech: Normal Mood: Good Affect: Full Thought processes/Associations: Logical and goal directed Thought Content: Non-psychotic Cognition/Attention/Memory/Concentration: Alert and oriented x 4; grossly intact attention; memory-recent/remote judged adequate by interviewer Insight: Good Judgement: Good language: Within normal limits Fund of Knowledge: Adequate . . AIMS EXAM: . AIMS Muscles of Facial Expression: None AIMS Lips and Perioral Area: None AIMS Jaw Area Involuntary Movements: None AIMS Tongue Involuntary Movements: None AIMS Upper Arms, Wrists, Hands, Fingers: None AIMS Lower Legs, Knees, Ankles, Toes: None AIMS Overall Abnormal Movement Severity: None AIMS Incapacitation Abnormal Movement: None AIMS Self Awareness of Abnormal Movement: Aware, None noted AIMS Current Teeth, Denture Problems: No AIMS Movements Disappear in Sleep: No . Progress Notes * JUAN BAUTISTAOB:1960 ([age] yo F)Acc No.[id number]:02/08/2025 Behavioral Health Patient: RAN MATHEW :Thomas KnottDOB:1960???Age:64 Y???Sex: FemaleDate:02/08/2025Phone:[phone]:[address], [id number]:Mi Boss Subjective: * Chief Complaints: * P t is a 64 year old female here with her , ROMEO from [place], 7 month f/uPt states she is doing good, no concernsLM * HPI: ???Constitutional:? Pt is being seen today for follow up via in-office visit. Pt is tolerating meds well and taking medications daily. . Pt states she is doing good on the medications and uses coping skills of prayer and music.? . Pt denies mood fluctuation. Energy and motivation are stable. Depressive symptoms are not persistent. Denies episodes of having sadness, anhedonia, isolating behaviors, or crying spells. Anxiety controlled. Concentration intact without distractibility. . Sleeping through the night and feels rested upon waking up. Denies Nightmares. Appetite is good. . Denies Euphoria. Pervasive irritability is controlled today. Meaningful relationships intact. Denies increased goal-oriented behavior or increase in purposeless activity.? . Denies suicidal or homicidal ideation or plan. No morbid thoughts. Interpersonal issues discussed. Support provided. Insight oriented/ Behavior modifying/ Supportive therapy . * ROS: ???CONSTITUTIONAL: No fever, chills, sweats, weakness SKIN: No jaundice, rash, lesions, petechiae GASTROINTESTINAL: No nausea, vomiting, diarrhea, or GI bleeding MUSCULOSKELETAL: No muscle pain or weakness NEUROLOGIC: No headache, dizziness, numbness, or weakness . * Medications: T akingOLANZapine 15 MG Tablet 1 tablet Orally once daily Cheswick Carbonate ER 300 MG Tablet Extended Release Take 1 tablet Orally twice daily clonazePAM 1 MG Tablet 1 tablet Orally at bedtime Taking OLANZapine 15 MG Tablet 1 tablet Orally once daily Taking Cheswick Carbonate ER 300 MG Tablet Extended Release Take 1 tablet Orally twice daily Taking clonazePAM 1 MG Tablet 1 tablet Orally at bedtime Not-Taking/PRNclonazePAM 1 MG Tablet 1 tablet Orally Once a day clonazePAM 1 MG Tablet 1 tablet Orally Once a day Not-Taking/PRN clonazePAM 1 MG Tablet 1 tablet Orally Once a day Not-Taking/PRN clonazePAM 1 MG Tablet 1 tablet Orally Once a day UnknownNeuriva - Capsule as directed Orally Stool Softener 100 MG Capsule 1 capsule as needed Orally Once a day Fish Oil Allouez-3 1000 MG Capsule 1 capsule Orally Once a day Medication List reviewed and reconciled with the patientUnknown Neuriva - Capsule as directed Orally Unknown Stool Softener 100 MG Capsule 1 capsule as needed Orally Once a day Unknown Fish Oil Allouez-3 1000 MG Capsule 1 capsule Orally Once a day Medication List reviewed and reconciled with the patient Objective: * Vitals: H t: 63 in, Wt: 156.5 lbs, BMI:27.72Index, SaO2: 98 %, HR: 78 /min. * Examination: ???General Examination: ???. MENTAL STATUS EXAM: . Appearance: Appropriately dressed and groomed, good eye contact, cooperative, pleasant Behavior/Motor Activity: Normal Gait/Station: Within normal limits BH Speech: Normal Mood: Good Affect: Full Thought processes/Associations: Logical and goal directed Thought Content: Non-psychotic Cognition/Attention/Memory/Concentration: Alert and oriented x 4; grossly intact attention; memory-recent/remote judged adequate by interviewer Insight: Good Judgement: Good BH language: Within normal limits Fund of Knowledge: Adequate . . AIMS EXAM: . AIMS Muscles of Facial Expression: None AIMS Lips and Perioral Area: None AIMS Jaw Area Involuntary Movements: None AIMS Tongue Involuntary Movements: None AIMS Upper Arms, Wrists, Hands, Fingers: None AIMS Lower Legs, Knees, Ankles, Toes: None AIMS Overall Abnormal Movement Severity: None AIMS Incapacitation Abnormal Movement: None AIMS Self Awareness of Abnormal Movement: Aware, None noted AIMS Current Teeth, Denture Problems: No AIMS Movements Disappear in Sleep: No . . Assessment: * Assessment: 1.?Bipolar disorder, current episode mixed, severe, without psychotic features - F31.63 (Primary)??? Plan: * Treatment: Refill Cheswick Carbonate ER Tablet Extended Release, 300 MG, Take 1 tablet, Orally, twice daily, 30days, 30, Refills 5;?Refill OLANZapine Tablet, 15 MG, 1 tablet, Orally, once daily, 30 days, 30, Refills 5;?Refill clonazePAM Tablet, 1 MG, 1 tablet, Orally, at bedtime, 30 days, 30, Refills 2, Notes to Pharmacist: Fill per OARRS last filled.?? Billing Information: * Procedure Codes: * Electronic signature of CYNTHIA King on 04/05/2025 at 09:38 AM EDT Sign off status: Pending * Provider: Tiffanie Knott Date: 0 02/08/2025 Generated for Printing/Faxing/eTransmitting on:?04/05/2025 09:38 AM EDT
--- OUTSIDE RECORDS SUMMARY | 2025-03-25 11:00 | XMS_ITS ---
Author Organization [facility] sCool[facility]ic es Address [address] [place] [address] Care Team Providers Care Household Appliances Salesperson Name Role Phone Mi Boss Primary Care Provider [phone] Shyjessica Shanae Unavailable [phone] REASON FOR VISIT Pt is a 64 [...] Orally twice daily; Duration: 30 daysActiveFish Oil [place]-3 1000 MG Capsule1 capsule Orally Once a [...] days As needed Fill per [facility] last [id number] Vital Signs Temperature 98.0 degrees Fahrenheit 03/25/20 25 Blood pressure systolic 155 mm Hg 03/25/20 25 Blood pressure diastolic 96 mm Hg 025 Heart Rate 71 /min 03/25/2025 Height 63 in 03/25/2025 Weight 144.2 lbs 03/25/2025 BMI 25.54 kg/m2 03/25/2025 Oximetry 99 % 03/25/2025 Encounters Encounter Location Date Provider Diagnosis [facility] [address] [place] [address] 03/25/2025 Shanae Knott Bipolar disorder, current episode [...] Tablet 1 tablet Orally once quirino ly [place] Carbonate ER 300 MG Tablet Extended ReleaseTake 1 tablet Orally twice daily; Duration: 30 daystraZODone HCl 50 MG Tablet1/2-1 tablet at bedtime as needed Orally Once a day; Duration: 30 days03/25/2025lonazePAM 0.5 MG Tablet 1/2-1 tablet Orally at bedtime; Duration: 30 days03/25/2025Fill per [facility] last filledNext Appt Details Provider Name:Shanae Denton greg, 04/24/2025 03:00:00 PM, [address] [place], [address], Provider Name:Shanae Denton greg, 05/08/2025 04:00:00 PM, [address] [place], [address], Progress Notes * SHAILESH BAUTISTA:1960 ([age] yo F)Acc No.[id number]:03/25/2025 Behavioral Health Patient: Fariha RENEERAN :?Shanae KnottDOB:1960???Age:64 Y???Sex: FemaleDate:03/25/2025Phone:[phone]:[address], [id number]:Mi Boss Subjective: * Chief Complaints: * P [...] MG Tablet 1 tablet Orally once daily [place] Carbonate ER 300 MG Tablet Extended Release Take 1 tablet Orally twice daily Taking clonazePAM 1 MG Tablet 1 tablet Orally at bedtime , Notes to Pharmacist: Fill per [facility] last filledTaking OLANZapine 15 MG Tablet 1 tablet Orally once daily Taking [place] Carbonate ER 300 MG Tablet Extended Release [...] needed Orally Once a day Fish Oil [place]-3 1000 MG Capsule 1 capsule Orally Once a day Medication List reviewed and reconciled with the patientUnknowariel Neuriva - Capsule as directed Orally Unknown Stool Softener 100 MG Capsule 1 capsule as needed Orally Once a day Unknown Fish Oil [place]-3 1000 MG Capsule 1 capsule Orally Once [...] to Pharmacist: Fill per [facility] last filled;?Refill [place] CarbonateER Tablet Extended Release, 300 MG, Take 1 tablet, Orally, twice daily, 30 days, 30, Refills 5; Continue OLANZapine Tablet, 15 MG, 1 tablet, Orally, once daily.?? Billing Information: * Procedure Codes: * Electronic signature of CYNTHIA King on 04/05/2025 at 09:37 AM EDT Sign off status: Pending * Provider: Tiffanie Knott Date: Generated for Printing/Faxing/eTransmitting on:?04/05/2025 09:37 AM EDT
--- OUTSIDE RECORDS SUMMARY | 2025-04-05 09:37 | XMS_ITS | Clinical Summary ---
Author Organization [employer] Address [id number] [place] [address] Care Team Providers Care Manufacturing Assembler Name Role Phone Roxane Tom MD Primary Care Provider [phone] Allergies Active AllergyReactionsCriticalityNoted DateCommentsTrifluoperazinemuscle cramps High10/03/2019 Caused jaw to lock when used in combination with thorazine when younger, for bipolar disorder Chlorpromazinemuscle auynqhHvixfp20/29/2020 Caused facial jaw to lock when used in combination with stelazine Medications MedicationSigDispense QuantityRefillsLast FilledStart DateEnd DateStatus lithium 600 MG capsule Take 300 mg by mouth in the morning and 300 mg in the evening. Take with meals. Active OLANZapine (ZyPREXA) 15 mg tablet Take 1 tablet (15 mg total) by mouth nightly.Active clonazePAM (KlonoPIN) 1 mg tablet Take 1 tablet (1 mg total) by mouth nightly.09/14/2019Active NON FORMULARY in the morning. Neureva Brain supplement daily.Active lkmci-eu-7-lzd-mtm-egjayii-ast (KRILL OIL) 1,350-284-65-80 mg capsule Take by mouth in the evening.Active Active Problems ProblemNoted DateDiagnosed DateS/P total hysterectomy with removal of both tubes and bkitokx5310/18/2019 Resolved Problems ProblemNoted DateDiagnosed DateResolved DatePost-op pain Pelvic mass Encounters DateTypeDepartmentCare NvuqRxoieiggaxh72/28/2025 7:33 AM EDTAnesthesia Event [facility] [address] [place] [address] Mic Bland, 01/31/2025 7:30 AM EDT - 01/31/2025 8:00 AM EDTSurgery [facility] [address] [place] [address] Geraldo Ramirez, DO COLONOSCOPY DIAGNOSTIC / SCREENING [G0105 +1 more]01/31/2025 6:13 AM EDT - 01/31/2025 8:41 AM EDTHospital Encounter [facility] [address] [place] [address] Geraldo Ramirez, DO Screening for cancer (Primary Dx); Family history of colon cancer; History of colon polyps Discharge Disposition: Home01/31/20257924Udqojn74/21/2025 12:00 PM EDTSupport Visit [facility] - Pre Admit [address] [place] [address] 01/11/2025 12:00 PM EDTOffice Visit [facility] [address] [place] [address] Radha Penaloza, FABRICATOR SPECIAL ITEMS-LAUNDRY TUB MAKER Encounter for colonoscopy due to history of colonic polyp (Primary Dx)01/11/2025 Travelfrom Last 3 Months Immunizations ImmunizationAdministration DatesNext AjnB4L7 Inj Preservative Free04/23/2009 Influenza, Im Trivalent Ecvrdwhjmtzq08/14/2011Influenza, Injectable, Mdck, Preservative Free, Quad05/28/2019Influenza, Injectable, quadrivalent (PF) 03/24/2018Tdap108/01/2018Zoster Live06/28/2015 Family History Medical HistoryRelationNameCommentsHeart attackBrotherHeart failureBrother LymphomaBrotherThroat cancerBrotherDementiaFatherJoseph CappuzzelloDiabetes FatherJoseph CappuzzelloDiabetes 2ArthritisMotherMary Sary CappuzzelloColon cancerMotherMary Sary HughespuzzelloDied age 56 (1988)Anesthesia problemsNeg Hx Breast cancerNeg HxRelationNameStatusCommentsBrotherFatherJoseph Cappuzzello AliveMotherMary Sary CappuzzelloAlive Social History Tobacco UseTypesPacks/DayYears UsedDateSmoking Tobacco: NeverSmokeless Tobacco: Never Tobacco Cessation:Counseling Given: Not Answered Alcohol UseStandard Drinks/WeekCommentsNo0 (1 standard drink = 0.6 oz pure alcohol)ChildcareAnswerDate MmebxqfcWstpzpiukFfuntce53/12/2019EmploymentAnswer Date XmmxunxvMdakaolhlfIttagof40/12/2019Hunger ScreeningAnswerDate Recorded Within the past 12 months we worried whether our food would run out before we got money to buy more.Never True09/05/2023Food Insecurity - InabilityNot on file 4Purpose - LifeAnswerDate RecordedPurpose and direction in lifeUnknown 1CommentsNoSex and Gender InformationValueDate RecordedSex Assigned at MwvwoYtecog78/28/2020 7:05 PM EDTLegal PibEigphl54/06/2015 11:33 AM EDTGender MizzpcufDhjbhf09/28/2020 7:05 PM EDTSexual OrientationStraight 10/02/2019 7:05 PM EDT Last Filed Vital Signs Vital SignReadingTime TakenCommentsBlood Dwliivav317/7108 8:10 AM EDT Qfktv496101/31/2025 8:25 AM EAAVbrylslmnee36.7 ??C (98 ??F)01/31/2025 7:55 AM EDT Respiratory Giyk953501/31/2025 8:25 AM EDTOxygen Pxqohjzcel818%01/31/2025 8:25 AM EDTInhaled Oxygen Concentration--Mubqnz44 kg (150 lb)01/31/2025 6:49 AM EDT Hotatl988 cm (5' 3 )01/31/2025 6:49 AM EDTBody Mass Index26.57001/31/2025 6:49 AM EDT Plan of Treatment Health MaintenanceDue DateLast DoneCommentsDepression Gzsqikfrf29/31/1972Adult BMI Follow Up Plan11/03/1977Fall Risk Ncddkdrjw49/31/2025OVID-19 Vaccine ( season)/, 05/06/2023, 10/07/2022, Additional history existsInfluenza Hezjdvr75/, 04/26/2023, 05/09/2021, Additional history existsAdult BMI Qcfwsvzrm89Tobacco Xfkhlldkq63/28/2026 01/31/2025DTaP,Tdap and Td Vaccines (2 - Td or Tdap) Hhsfwejksrd18, 01/31/2025, 09/07/2021, Additional history existsPap KpcrrJvppgtmqzoek97/29/2020, 10/03/2019Zoster (Shingles) Vaccine Xicuuykix69/14/2022, 04/19/2021, 06/28/2015 Goals GoalPatient Goal TypeAssociated ProblemsRecent ProgressPatient-Stated?Author home Beatriz Licea RN Note: Evaluation of progress towards goal: Patient plans to discharge home with self care and with familyassistance Medical Devices ImplantedTypeAreaManufacturerDevice IdentifierShelf Expiration DateModel / Serial / LotSut Anch Pushlk Bcmps 3.5x19.5 Ster Disp 5ea/Po Ln Required - Ness- 1926bc - [id number] Implanted:Qty: 1 on 07/27/2017 by [facility]: BlzsqsdbAoqhxezH028TZ8629VP92/21/2019AR-1926BC / AR-1926BC / [id number] Ceres Swivel - [id number] - [id number] Implanted:Qty: 1 on 07/27/2017 by [facility]: [id number]/21/7957TP2357ROL / [id number] / [id number] - Sar 7235 - [id number] Implanted:Qty: 1 on 07/27/2017 by Steve Valentin, DO at [facility] ImplantRight: OioqiilbFbkebsd09/01/2530EH7923 / AR 7235 / [id number] Bn 43h1n8zp 1/3 Tblr 7 Hl Colr Lcp Ss .7mm 12mm Ns - Sna - [id number] Implanted:Qty: 1 on 12/09/2021 [facility]: AnkleDEPUY SYNTHES SALES41.371 / NA / NAScrew Bn 12mm 3.5mm 6mm St Lp Hd Sm Hex Sckt Jerrod Ss 2.5mm Rpl Special Item [id number] - Sna - [id number] Implanted:Qty: 1 on 12/09/2021 by [facility] DO [facility]: AnkleDEPUY SYNTHES SALES04.812 / NA / NAScrew Bn 14mm 3.5mm [address] St Lp Sm Hex Jerrod Ss Ns Rpl Special Item [id number] - Sna - [id number] Implanted:Qty: 2 on 12/09/2021 by Steve Valentin, DO at [facility] [place]wRight: AnkleDEPUY SYNTHES SALES.814 / NA / NAScrew Bn 26mm 3.5mm [address] Lp Sm Hex Jerrod Ss Ns Rpl [id number] - Sna - [id number] Implanted:Qty: 1 on 12/09/2021 by Steve Valentin, DO at [facility] [place]wRight: AnkleDEPUY SYNTHES SALES.826 / NA / NAScrew Bn 16mm 4mm 6mm Sm Hex Sckt Canc Ss 2.5mm Ft Ns Sm - Sna - [id number] Implanted:Qty: 2 on 12/09/2021 by Steve Valentin, DO [facility] [place]wRight: AnkleDEPUY YouHelp SALES.016 / NA / NAExplantedTypeAreaManufacturerDevice IdentifierShelf Expiration DateModel / Serial / LotScrew Bn 12mm 4mm 6mm Sm Hex Sckt Canc Ss 2.5mm Ft Ns Sm - Sna - [id number] Explanted:Qty: 1 on 12/09/2021 at [facility] [place]wRight: Tamica YouHelp .012 / NA / NA Procedures Procedure NamePriorityDate/TimeAssociated DiagnosisCommentsPR COLONOSCOPY FLX DX W/COLLJ SPEC WHEN PFRMD01/31/2025 7:30 AM EDT history of colon polyps ME COLORECTAL SCRN; HI RISK IND01/31/2025 7:30 AM EDT history of colon polyps SBFXKHDITCA92/28/2025 7:08 AM EDT PROVATION DBZFQIHUDFVWzkwdly30/28/2025 6:22 AM EDT PAP ZMESROfehfkn86/29/2020 3:30 PM EDT Pelvic mass from Last 3 Months or Most Recently Relevant to Health Maintenance Results * Colonoscopy (01/31/2025 7:08 AM EDT)Specimen (Source)Anatomical Location / LateralityCollection Method / VolumeCollection TimeReceived Time01/31/2025 7:08 AM EDT Narrative PM CARDIOVASCULAR - 01/31/2025 7:55 AM EDT [facility] Patient Name: Ran Waller ?? Procedure Date No Time: 01/31/2025 ?? CSN : [id number] Date of : 1960 Admit Type: Outpatient Age: 64 Room: [place] [address] Gender: Female Note Status: Finalized Attending MD: Geraldo Ramirez DO, Procedure: ? Colonoscopy Indications: ? Screening for colorectal malignant neoplasm, High risk ? colon cancer surveillance: Personal history of ? adenomatous colonic polyps, Family history of colon ? cancer Providers: ? Geraldo Ramirez, DO Referring MD: ?Geraldo Ramirez, DO Medicines: ? Propofol per Anesthesia Complications: ? No immediate complications. Procedure: ? After I obtained informed consent, the scope was ? passed under direct vision. Throughout the procedure, ? the patient's blood pressure, pulse, and oxygen ? saturations were monitored continuously. The OLYMPUS ? [id number] # [id number] PEDIATRIC COLONOSCOPE was ? introduced through the anus and advanced to the cecum, ? identified by the appendiceal orifice, ileocecal valve ? and palpation. The colonoscopy was technically ? difficult and complex due to restricted mobility of ? the colon, a redundant colon, significant looping and ? a tortuous colon. Successful completion of the ? procedure was aided by applying abdominal pressure. ? The patient tolerated the procedure well. The quality ? of the bowel preparation was adequate to identify ? polyps greater than 5 mm in size. Findings: ? Skin tags were found on perianal exam. ? The colon (entire examined portion) appeared normal. ? The exam was otherwise without abnormality on direct and retroflexion ? views. Estimated Blood Loss: ??Estimated blood loss: none. Impression: ?- Perianal skin tags found on perianal exam. ? - The entire examined colon is normal. ? - The examination was otherwise normal on direct and ? retroflexion views. ? - No specimens collected. Recommendation: ?- Discharge patient to home. ? - Patient has a contact number available for ? emergencies. The signs and symptoms of potential ? delayed complications were discussed with the patient. ? Return to normal activities tomorrow. Written ? discharge instructions were provided to the patient. ? - Repeat colonoscopy in 5 years for screening with ? family history. ? - Return to my office PRN. Procedure Code(s): ? --- Professional --- ? G0105, Colorectal cancer screening; colonoscopy on ? individual at high risk Diagnosis Code(s): ? --- Professional --- ? Z12.11, Encounter for screening for malignant neoplasm of colon ? Z86.0101, Personal history of adenomatous and serrated colon polyps ? K64.4, Residual hemorrhoidal skin tags ? Z80.0, Family history of malignant neoplasm of digestive organs CPT copyright 2022 [employer]. All rights reserved. The codes documented in this report are preliminary and upon fitter tacker review may be revised to meet current compliance requirements. DO Geraldo Valencia DO 01/31/2025 7:55:08 AM Number of Addenda: 0 Note Initiated On: 01/31/2025 7:08 AM Procedure Note Geraldo Ramirez DO - 01/31/2025 [facility] Patient Name: Ran Waller Procedure Date No Time: 01/31/2025 CSN : [id number] Date of : 1960 Admit Type: Outpatient Age: 64 Room: [place] [address] Gender: Female Note Status: Finalized Attending MD: Geraldo Ramirez DO, Procedure: Colonoscopy Indications: Screening for colorectal malignant neoplasm, Highrisk colon cancer surveillance: Personal history of adenomatous colonic polyps, Family history of colon cancer Providers: Geraldo Ramirez DO Referring MD: Geraldo Ramirez DO Medicines: Propofol per Anesthesia Complications: No immediate complications. Procedure: After I obtained informed consent, the scope was passed under direct vision. Throughout theprocedure, the patient's blood pressure, pulse, and oxygen saturations were monitored continuously. The[id number] # [id number] PEDIATRIC COLONOSCOPE was introduced through the anus and advanced to thececum, identified by the appendiceal orifice, ileocecalvalve and palpation. The colonoscopy was technically difficult and complex due to restricted mobility of the colon, a redundant colon, significant loopingand a tortuous colon. Successful completion of the procedure was aided by applying abdominal pressure. The patient tolerated the procedure well. Thequality of the bowel preparation was adequate to identify polyps greater than 5 mm in size. Findings: Skin tags were found on perianal exam. The colon (entire examined portion) appeared normal. The exam was otherwise without abnormality on direct and retroflexion views. Estimated Blood Loss: Estimated blood loss: none. Impression: - Perianal skin tags found on perianal exam. - The entire examined colon is normal. - The examination was otherwise normal on directand retroflexion views. - No specimens collected. Recommendation: - Discharge patient to home. - Patient has a contact number available for emergencies. The signs and symptoms of potential delayed complications were discussed with thepatient. Return to normal activities tomorrow. Written discharge instructions were provided to thepatient. - Repeat colonoscopy in 5 years for screening with family history. - Return to my office PRN. Procedure Code(s): --- Professional --- G0105, Colorectal cancer screening; colonoscopy on individual at high risk Diagnosis Code(s): --- Professional --- Z12.11, Encounter for screening for malignant neoplasm of colon Z86.0101, Personal history of adenomatous and serrated colon polyps K64.4, Residual hemorrhoidal skin tags Z80.0, Family history of malignant neoplasm of digestive organs CPT copyright 2022 [employer]. All rights reserved. The codes documented in this report are preliminary and upon fitter tacker reviewmay be revised to meet current compliance requirements. DO Geraldo Valencia DO 01/31/2025 7:55:08 AM Number of Addenda: 0 Note Initiated On: 01/31/2025 7:08 AM Authorizing ProviderResult TypeResult StatusGeraldo LUA PROCEDURE ORDERABLESFinal ResultPerforming OrganizationAddressCity/State/ZIP CodePhone Number PM CARDIOVASCULAR * Colonoscopy Report (01/31/2025 6:22 AM EDT)Specimen (Source)Anatomical Location / LateralityCollection Method / VolumeCollection TimeReceived Time Narrative SYSTEMGENERATED, DOCUMENTATION - 01/31/2025 6:22 AM EDT This order has been auto-finalized for image and report archival in PACs. *For full report details, please reach out to your physician. ??This image is visible to you in MyChart.* Authorizing ProviderResult TypeResult StatusMichael E Grillis DOIMG OR IMG ORDERABLESFinal Result * Pap Smear (10/03/2019 3:30 PM EDT)Specimen (Source)Anatomical Location / LateralityCollection Method / VolumeCollection TimeReceived Time10/03/2019 3:30 PM EDT10/03/2019 3:32 PM EDT Narrative COPATH - 10/04/2019 12:54 PM EDT [facility] ? [address] [place] [address] ? [place] [address] ? Gynecologic Cytology Consultation ? Patient Name: RAN WALLER : 1960 (Age: 58) Gender: F Taken: 10/03/2019 Reported: 10/04/2019 Physician(s): Merritt Trinidad MD [phone]) Copy To: ?? [facility]. Rec. #: [id number] Acct: # [id number] Final Cytologic Interpretation ThinPrep Pap Test (Vaginal/Cervical): Satisfactory for evaluation. A transformation zone component is present. NEGATIVE FOR INTRAEPITHELIAL LESION OR MALIGNANCY. ?? [facility]/10/04/2019 Interpretation performed at [facility], [address] [place] [address], License number: [id number]. Electronically Signed Out By ?YUNIOR Richter(ASCP) Date of Last Menstrual Period: ? (None Given) Other Clinical Conditions: R19.00 Pelvic mass Menopausal Abnormal Bleeding Source of Specimen ??ThinPrep Pap Test (Vaginal/Cervical) ? Thin Prep Pap (SINK CUTTER) Fee Code(s): ?? 43066 The Pap test is a screening test with an inherent, but low, probability of error. The Pap test is primarily effective for the diagnosis and prevention of squamous cell carcinoma. Regular screening iscritical for prevention. ThinPrep liquid-based slides, which meet the Motor Vehicle Dispatcher criteria for automated screening, have been screened by the ThinPrep Imaging System (as of 02/20/07) along with an additional manual rescreening by a chef passenger vessel and, if indicated, by a pathologist. Authorizing ProviderResult TypeResult StatusSonyogenevieve Trinidad MD PATHOLOGY/CYTOLOGY ORDERABLESFinal ResultPerforming OrganizationAddress City/State/ZIP CodePhone Number COPATH from Last 3 Months or Most Recently Relevant to Health Maintenance Insurance * Guarantor: Nadine Waller TypeRelation to PatientDate of BirthPhoneBilling AddressPersonal/XpmldjZbdb45/31/1961 [facility] [place] [address] Advance Directives * Full Code (Latest Code Status on File) Date ActivatedDate InactivatedComments10/09/2019 3:04 PM10/10/2019 4:18 PM Care Teams Team MemberRelationshipSpecialtyStart DateEnd Date Roxane Tom MD NPI: [id number] [place], [place] [address] [facility] - General07/27/17
--- OUTSIDE RECORDS SUMMARY | 2025-04-05 09:37 | XMS_ITS | Clinical Summary ---
Author Organization [facility] Address [address] [place] [address] Care Team Providers Care Church Organist Name Role Phone Roxane Tom MD Primary Care Provider [phone] Tim Barker MD Unavailable [phone] Allergies Active AllergyReactionsCriticalityNoted DateCommentsChlorpromazineOther: See KaeszgjfAdmg63/16/2015 Caused lock jaw in combination with Stelazine Medications MedicationSigDispense QuantityRefillsLast FilledStart DateEnd DateStatus clonazePAM (KLONOPIN) 0.5 mg tablet Take 0.5 mg by mouth once daily. Also as wvxapq2911/20/2018Active lithium carbonate ER 450 mg CR tablet Take 450 mg by mouth twice daily.12/28/2018Active OLANZapine (ZYPREXA) 10 mg tablet Take 10 mg by mouth once daily.12/28/2018Active fluticasone propionate (FLONASE NASAL) Use in the nose. As neededActive Active Problems No known active problems Family History Medical HistoryRelationCommentsNo Ocular DiseaseNo Family History Social History Tobacco UseTypesPacks/DayYears UsedDateSmoking Tobacco: NeverSmokeless Tobacco: NeverAlcohol UseStandard Drinks/WeekCommentsNot Currently0 (1 standard drink = 0.6 oz pure alcohol)2010Area Deprivation IndexAnswerDate RecordedNational Score (1-100), lower number is lower rpsh2045State Score (1-10), lower number is lower vgdc29007/04/2024Data from: https://www.neighborhoodatlas.medicine.[facility].edu/. Last address used for xeqjnqyhlcv119 ADAM AVKevin07/04/2024CommentsUnknownSex and Gender InformationValueDate RecordedSex Assigned at BirthNot on fileLegal SexFemale 01/11/2019 1:21 PM EDTGender IdentityNot on fileSexual OrientationNot on file Plan of Treatment DateTypeDepartmentCare Team (Latest Contact Info)Zvuipuuinkf82/19/2025 9:45 AM ESTOffice Visit [facility] [address] [address] [place] [address] [place] [address] [facility] [address] [address] Vertical downbeat Ucesjavxr37/01/2025 3:00 PM ESTOffice Visit [facility] [address] [place] [address] [address] [place] [address] Christine Schmdi, OD [address] [place] [address] [facility] [address] [address] DiplopiaHealth MaintenanceDue DateLast DoneCommentsAnxiety Jlcpgxzzf61/31/1978 Depression Ywvwyiwng96/31/1978HIV Yorgwgwds63/31/1978Hepatitis C Screening 11/03/1977CT Bsokjdpugncj32/31/2005Cologuard (FIT-DNA)11/03/2004Fecal Occult Blood11/03/2004Lipid Wrohwukgz55/31/1979Wywwnkdvkyipo60/31/2005Pneumococcal Vaccine: 50+ (1 of 1 - PCV)11/03/2009Shingrix Vaccine (2 of 3)08/23/2015 06/28/2015Mammogram Kswhytqpk04/7657Pxehcreagup41/04/202304/09/2021 Colorectal Cancer Fzedhezhz80/04/2023dvance Directive Fdfzxoixvb45/31/2025one Density Vtjvqtlng43/31/2025Diabetes Gculjzznq66/06/041304/11/2021, 08/19/2019, 08/18/2019, Additional history existsCovid-19 Vaccine ( - 2024- season) 2025Influenza Vaccine (#1)5107/29/2018, 03/24/2018, 02/17/2011, Additional history existsDTaP,Tdap,Td Vaccine (2 - Td or Tdap)05/31/2029 05/31/2019RSV Vaccine (1 - 1-dose 75+ series)11/03/2034 Insurance Care Teams Team MemberRelationshipSpecialtyStart DateEnd Date Roxane Tom MD [address] [facility] [place] [address] PCP - GeneralFamily Medicine12/14/11 Tim Barker MD [address] [facility] [address] [place] [address] ReferringNeurology01/09/19
--- OUTSIDE RECORDS SUMMARY | 2025-04-05 09:37 | XMS_ITS | Patient Health Record ---
Author Organization [facility] Address [address] [place] [address] Care Team Providers Care Nursing Surgical Services Director Name Role Phone BossMi Primary Care Provider Jamie García Unavailable [phone] Shanae Knott Unavailable [phone] Allergies Allergen (clinical drug ingredient) Drug/Non Drug Allergy documented on EMR Reaction Allergy Type Onset Date Status Ernie stiffnessDrug AllergyActive Results Component Value Reference Range Notes [place] Reviewed date:09/04/2024 10:21:35 AM Interpretation: Performing Lab: Notes/Report: [place] 0.9 Reason For Referral No Information Medications Medication SIG (Take, Route, Frequency, Duration) Notes Start Date End Date Status OLANZapine 15 MG Tablet 1 tablet Orally once quirino ly ActiveclonazePAM 1 MG Tablet1 tablet Orally Once a day; Duration: 30 days 10/12/2024Not-Taking/PRNLithium Carbonate ER 300 MG Tablet Extended ReleaseTake 1 tablet Orally twice daily; Duration: 30 daysActiveclonazePAM 1 MG Tablet1 tablet Orally Once a day; Duration: 30 days10/12/2024Not-Taking/PRNtraZODone HCl 50 MG Tablet1/2-1 tablet at bedtime as needed Orally Once a day; Duration: 30 days5ActiveFish Oil [place]-3 1000 MG Capsule1 capsule Orally Once a day UnknownclonazePAM 0.5 MG Tablet 1/2-1 tablet Orally at bedtime; Duration: 30 days As needed Fill per OARRS last ikqibx385ActiveNeuriva - Capsuleas directed Orally UnknownStool Softener 100 MG Capsule1 capsule as needed Orally Once a dayUnknown Social History Tobacco Use: Social History Observation Description Date Details (start date - stop date) Never Smoker NA - NA Social History GeneralSocial InfoQuestionAnswerNotesTobacco Screen:Are you a:current smoker Tobacco Use:Social InfoQuestionAnswerNotesTobacco Control (Standard)Tobacco use: Nonsmoker Problems Problem Type SNOMED Code ICD Code Onset Dates Problem Status W/U Status Risk Notes Problem Severe mixed bipolar I disorder without psychotic features (78463797) Bipolar disorder, current episode mixed, severe, without psychotic features (F31.63) Activeconfirmed Vital Signs Heart Rate 71 /min 03/25/2025 Juciklbxgxx96.0 degrees Lggbgporma55/20/2025Respiratory Rate18 /min04/18/2024 Oflpvzvx00 %03/25/2025lood pressure iktorknlo35 mm Hg03/25/20253376Cmpvty59 in 03/25/2025lood pressure mm Hg03/25/20250775Yhckpq016.2 lbs1MI 25.54 kg/m203/25/2025 Encounters Encounter Location Date Provider Diagnosis [facility] [address] [place] [address] 06/19/2024 Mi Boss Bipolar disorder, current episode mixed, severe, without psychotic features F31.63 [facility] [address] [place] [address] 08/20/2024 Kip Soviak Bipolar disorder, current episode mixed, severe, without psychotic features F31.63 [facility] [address] [place] [address] 09/12/2024 Mi Boss Bipolar disorder, current episode mixed, severe, without psychotic features F31.63 [facility] [address] [place] [address] 09/24/2024 Mi Boss Bipolar disorder, current episode mixed, severe, without psychotic features F31.63 [facility] [address] [place] [address] 10/12/2024 Mi Boss Bipolar disorder, current episode mixed, severe, without psychotic features F31.63 [address] [place] [address] 10/16/2024 Mi Boss Bipolar disorder, current episode mixed, severe, without psychotic features F31.63 [facility] [address] [place] [address] 11/14/2024 Mi Boss Bipolar disorder, current episode mixed, severe, without psychotic features F31.63 [facility] [address] [place] [address] 12/03/2024 Mi Boss [facility] [address] [place] [address] Mi CoxBipolar disorder, current episode mixed, severe, without psychotic features F31.63[facility] [place] [address]/08/2024[facility] [place] [address]/Leslie NeubergerBipolar disorder, current episode mixed, severe, without psychotic features [address] [place] [address]/Leslie NeubergerBipolar disorder, current episode mixed, severe, without psychotic features [address] [place] [address] [address] [place] [address]/16/2025Leslie NeubergerBipolar disorder, current episode mixed, severe, without psychotic features [address] [place] [address]/10/2024Leslie Neuberger Bipolar disorder, current episode mixed, severe, without psychotic features [address] [place] [address]Leslie NeubergerBipolar disorder, current episode mixed, severe, without psychotic features [address] [place] [address] 4Christy CoxBipolar disorder, current episode mixed, severe, without psychotic features [address] [place] [address]/5Christy CoxBipolar disorder, current episode mixed, severe, without psychotic features F31.63 and Medication management Z79.899 Assessments Encounter Date Diagnosis (ICD Code) Assessment Notes Treatment Notes Treatment Clinical Notes Section Notes 04/18/2024 Bipolar disorder, cu rrent episode mixed, severe, without psychotic features (ICD-10 - F31.63) Recommended treatment for Bipolar disorder includes FDA approved and OFF label medications: second generation antipsychotics and mood stabilizers. Discussed life threatening side effect of Lamotrigine. Pt is to monitor for new skin rashes or sensation of a sunburn or itchiness or redness, mouth sores or sores in mucus membranes, and call provider immediately and or go to ER, and stop the medication. Second generation antipsychotic medications can cause headache, drowsiness, agitation, dizziness, nausea, or extrapyramidal symptoms such as tremors, muscle spasms, slowness of movement or jerkingof muscles. The patient verbalizes understanding with all questions answered thoroughly and is in agreement with treatment plan. Continue current treatment. . Call for problems . GOALS: . Maintain medication regimen _Improve mood stability _Improve anxiety control _Improve social and interpersonal functioning Patient/Guardian will call sooner if symptoms worsen. Patient understands to go to ER if needed if symptoms become severe. Crisis Intervention plan was discussed and agreed upon. Patient/Guardian will call 911 in case of emergency. Emergency contact information was provided to the patient/guardian. follow up 3 months Pharmacological management: . Alternative medication plans were discussed with the patient/guardian. All relevant side effects and potential adverse effects were discussed with the patient/guardian. Standard cautions and potential benefits were discussed. Patient/Guardian consented to the start/continuation of the treatment. 5Bipolar disorder, current episode mixed, severe, without psychotic features (ICD-10 - F31.63)5Bipolar disorder, current episode mixed, severe, without psychotic features (ICD-10 - F31.63) Recommended treatment for Bipolar disorder includes FDA approved and OFF label medications: second generation antipsychotics and mood stabilizers. Discussed life threatening side effect of Lamotrigine. Pt is to monitor for new skin rashes or sensation of a sunburn or itchiness or redness, mouth sores or sores in mucus membranes, and call provider immediately and or go to ER, and stop the medication. Second generation antipsychotic medications can cause headache, drowsiness, agitation, dizziness, nausea, or extrapyramidal symptoms such as tremors, muscle spasms, slowness of movement or jerkingof muscles. The patient verbalizes understanding with all questions answered thoroughly and is in agreement with treatment plan. Continue current treatment. . Call for problems . GOALS: . Maintain medication regimen _Improve mood stability _Improve anxiety control _Improve social and interpersonal functioning Patient/Guardian will call sooner if symptoms worsen. Patient understands to go to ER if needed if symptoms become severe. Crisis Intervention plan was discussed and agreed upon. Patient/Guardian will call 911 in case of emergency. Emergency contact information was provided to the patient/guardian. follow up 3 months Pharmacological management: . Alternative medication plans were discussed with the patient/guardian. All relevant side effects and potential adverse effects were discussed with the patient/guardian. Standard cautions and potential benefits were discussed. Patient/Guardian consented to the start/continuation of the treatment. 07/18/2024Medication management (ICD-10 - Z79.899)5Bipolar disorder, current episode mixed, severe, without psychotic features (ICD-10 - F31.63) 5Bipolar disorder, current episode mixed, severe, without psychotic features (ICD-10 - F31.63)5Bipolar disorder, current episode mixed, severe, without psychotic features (ICD-10 - F31.63)5Bipolar disorder, current episode mixed, severe, without psychotic features (ICD-10 - F31.63) 5Bipolar disorder, current episode mixed, severe, without psychotic features (ICD-10 - F31.63)5Bipolar disorder, current episode mixed, severe, without psychotic features (ICD-10 - F31.63)5Bipolar disorder, current episode mixed, severe, without psychotic features (ICD-10 - F31.63) 5Bipolar disorder, current episode mixed, severe, without psychotic features (ICD-10 - F31.63)5Bipolar disorder, current episode mixed, severe, without psychotic features (ICD-10 - F31.63)5Bipolar disorder, current episode mixed, severe, without psychotic features (ICD-10 - F31.63) 5Bipolar disorder, current episode mixed, severe, without psychotic features (ICD-10 - F31.63)5Bipolar disorder, current episode mixed, severe, without psychotic features (ICD-10 - F31.63) Plan Of Treatment Pending Test Test Name Order Date [place] 09/15/2023 Next Appt Details Provider Name:Shanae Denton greg, 04/24/2025 03:00:00 PM, [address] [place], [address], Provider Name:Shanae Denton greg, 05/08/2025 04:00:00 PM, [address] [place], [address], Insurance Providers Payer Name Payer Address Payer Phone Subscriber Number Group Number Insured Name Patient Relationship to Insured Coverage Start Date Coverage End Date [employer] [address] [address] [place] [address] [id number] MICHAEL BAUTISTA Spouse - patient is the spouse of the insured 3 MEDICARE CGS [id number] REBECCA ROSEN[address]UM [address] [place] [address] [id number], DALESpouse - patient is the spouse of the insured Medical (General) History Medical History History ICD Code bipolar kidney disease, stage 3Surgical History Surgery Date(Month/Year) colonoscopy D & Ccomplete zpmyxnwbngpx1713
--- OUTSIDE RECORDS SUMMARY | 2025-04-05 09:38 | XMS_ITS | Clinical Summary ---
Author Organization [facility] Address [address] [place] [address] Care Team Providers Care Ground Surveillance Systems Operator Name Role Phone Roxane Tom MD Primary Care Provider [phone] Xena Marrufo MD Unavailable [phone] Jesus Aguiar DO Unavailable [phone] Allergies Active AllergyReactionsCriticalityNoted OqazBwjkcotiWumvxlfkoimjquTnye78/16/2015 Other Reaction(s): muscle cramps, neck stiffness, Other: See Comments Other reaction(s): muscle cramps, Other: See Comments Caused lock jaw in combination with StelazineCaused facial jaw to lock when used in combination with stelazine Caused facial jaw to lock when used in combination with stelazine Caused lock jaw in combination with Stelazine UyqbrstrdwnorbzJseg42/29/2020 Other Reaction(s): muscle cramps, Other (See Comments) Other reaction(s): muscle cramps Caused jaw to lock when used in combination with thorazine when younger, for bipolar disorder Caused jaw to lock when used in combination with thorazine when younger,for bipolar disorder Other reaction(s): muscle cramps Caused jaw to lock when used in combination with thorazine when younger, for bipolar disorder Caused jaw to lock when used in combination with thorazine when younger, for bipolar disorder Medications MedicationSigDispense QuantityRefillsLast FilledStart DateEnd DateStatus lithium 600 MG capsule Take 600 mg by mouth at bedtimeActive clonazePAM (KlonoPIN) 1 MG tablet Take 1 mg by mouth at bedtimeActive OLANZapine (ZyPREXA) 15 MG tablet Take 1 tablet by mouth DailyActive omega-3 (fish oil) 1000 MG capsule 1 capsule 1 (one) time each day at the same timeActive Misc Natural Products (Neuriva) capsule Active Docusate Sodium (DSS) 100 MG capsule Active Active Problems ProblemNoted DateDiagnosed DirpLevrsjvnhvxgmjazntz12/09/2025Hypercalcemia 06/14/2024Vitamin D /09/2025hronic kidney disease, stage 3b 06/14/2024Downbeat bttlpfigr29/08/0905Bwnytxfa68/08/2024ge-related nuclear cataract of both eyes04/13/2024ry eyes04/13/2024losed fracture of lower end of right radius with routine dvsqgcd0502/10/2024 Resolved Problems ProblemNoted DateDiagnosed DateResolved DateBipolar disorder, current episode mixed, severe, without psychotic odvilaab30Hallucinations Overview (11/12/2024): Problem List clean-up per request of Phys. EHR Cmte Nbouwvtczrtbim37HypernatremiaHyperuricemia Lithium useSchizophrenia11/12/2024 11/12/2024Screening mammogram for breast bqzkfk80UTI (urinary tract infection) Overview (11/12/2024): Problem List clean-up per request of Phys. EHR Cmte Benign essential HTNomplete tear of right rotator cuff Other chronic painSevere mixed bipolar I disorder without psychotic qaqiqdkz85ipolar 1 disorder, manic, mild08/22/GAD (generalized anxiety disorder)08/22/2020 09/30/2024S/P total hysterectomy with removal of both tubes and ovaries Schizoaffective disorder, bipolar type Encounters DateTypeDepartmentCare LmkwRhcidevzvqi41/01/2025 2:10 PM EDTOffice Visit [facility] [address] [place] [address] Xena Marrufo MD History of parathyroid surgery (Primary Dx); Chronic kidney disease, stage 3b ([facility]); Vitamin D wlswhjajeg52/01/2025amboo flowsheet [facility] [address] [place] [address] Xena Marrufo MD from Last 3 Months Immunizations ImmunizationAdministration DatesNext DueInfluenza, injectable, MDCK, preservative free, cptnzqklxpua00/23/2019Influenza, injectable, quadrivalent, preservative free04/26/2023,05/09/2021,02/14/2020,03/24/2018Influenza, seasonal, mjsklfidmg71/14/2011Influenza, seasonal, injectable, preservative free04/20/2024 Novel ghdfnwtha-Y9E7-86, preservative-free04/23/2009Tdap108/01/2018Zoster, Efopiwvudva38/14/2022,04/19/2021Zoster, live06/28/2015 Family History Medical HistoryRelationNameCommentsDementiaFatherDiabetesFatherEmphysemaFather CancerMotherRelationNameStatusCommentsFatherDeceasedMotherDeceased Social History Tobacco UseTypesPacks/DayYears UsedDateSmoking Tobacco: NeverSmokeless Tobacco: Never Tobacco Cessation:Counseling Given: Not Answered Alcohol UseStandard Drinks/WeekCommentsNot Currently0 (1 standard drink = 0.6 oz pure alcohol)CommentsUnknownSex and Gender InformationValueDate Recorded Sex Assigned at BirthNot on fileLegal ZxfEzfoxt80/15/2023 6:35 PM EDTGender IdentityNot on fileSexual OrientationNot on file Last Filed Vital Signs Vital SignReadingTime TakenCommentsBlood Fczltvgd760/8810 2:16 PM EDT Kirni7471 2:16 PM EDTTemperature--Respiratory Whqi9356 2:16 PM EDTOxygen Hfvprrysry10%03/06/2025 2:16 PM EDTInhaled Oxygen Concentration-- Xvzzaq33.3 kg (155 lb)03/06/2025 2:16 PM FTHMoibhr902 cm (5' 3 )03/06/2025 2:16 PM EDTBody Mass Index27.4610 2:16 PM EDT Plan of Treatment DateTypeDepartmentCare Team (Latest Contact Info)Kcaesoejwmo93/01/2026 2:30 PM EDTOffice Visit [facility] [address] [place] [address] Xena Marrufo MD [address] [place] [address] Health MaintenanceDue DateLast DoneCommentsCT Zyfpgxzdcclx48/31/1960FIT-DNA 1959FIT1959FOBT1959 4804Inljemuvqtfse51/31/1960Pap Smear11/03/1980 Cervical Cancer Djicclwdo36/31/1990HPV/Eqrwbc3511/03/1989Pneumococcal Vaccine: 65+ Years (1 of 1 - PCV)11/03/20092309Pgeqipzhm92/26/202205/9262Ntxildklsdm29/28/2035 01/31/2025, 01/31/2025, 5Colorectal Cancer Uzmtvbtaj65/28/2035Influenza VicfuelUqtdupcye26/15/2025, 04/20/2024, 04/26/2023, Additional history exists Procedures Procedure NamePriorityDate/TimeAssociated DiagnosisCommentsVITAMIN D 25 HYDROXY NNLAUTksudqo63/01/2025 2:27 PM EDT Hypercalcemia Hyperparathyroidism (HCC) CJUTRBVEomzvod29/01/2025 2:27 PM EDT Hypercalcemia Hyperparathyroidism (HCC) from Last 3 Months Results * Vitamin D 25 hydroxy Total (03/06/2025 2:27 PM EDT)Specimen (Source)Anatomical Location / LateralityCollection Method / VolumeCollection TimeReceived Time BloodVenous blood specimen / Unknown Narrative Authorizing ProviderResult TypeResult StatusBenDeaconess Hospital Jamel BATISTAAB BLOOD ORDERABLESFinal ResultPerforming OrganizationAddLehigh Valley Health Network/[facility] CodePhone Number [facility] [address] [place] [address], * Calcium (03/06/2025 2:27 PM EDT)Specimen (Source)Anatomical Location / LateralityCollection Method / VolumeCollection TimeReceived TimeBloodVenous blood specimen / Unknown Narrative Authorizing ProviderResult TypeResult StatusBenDeaconess Hospital Jamel DOLAB BLOOD ORDERABLESFinal ResultPerforming OrganizationAddressty/[facility] CenterPhone [place] [address] [place] [address], from Last 3 Months Insurance * Guarantor: Nola Waller TypeRelation to PatientDate of BirthPhone Billing AddressPersonal/YjjncnWepm03/31/1961 [facility] [place] [address] Care Teams Team MemberRelationshipSpecialtyStart DateEnd Date Roxane Tom MD [address] [place] [address] PCP - GeneralFawaly Medicine10/10/23 Xena Marrufo MD [address] [place] [address] Referring PhysicianEndocrinology10/01/24 Jesus Aguiar DO [address] [place] [address] Otolaryngology10/01/24
--- NOTE | 2025-04-05 09:40 | MM_ITS ---
Patient Name: RAN BAUTISTA MR#: [id number] : 1960 Exam Date: 04/05/2025 Ordering Doctor: DR SANTA AUGUSTIN M.D. RADIOLOGY REPORT PROCEDURE: MM SCREENING MAMMO BI COMPARISON: MM SCREENING MAMMO BI, 10/14/2023. MG MAMM SCREEN TERRA W CAD, 04/08/2022. INDICATIONS: screening Calculator Name NCI Breast Cancer Risk Assessment Tool 5 Year Breast Cancer Risk 2.80% Lifetime Breast Cancer Risk 10.30% Personal Breast Cancer No Personal Ovarian Cancer No Treatments None Family Cancers Aunt-maternal with breast cancer at age 75; Aunt-maternal with breast cancer at age 80; Aunt-maternal with breast cancer at age 70; Mother with colon cancer at age 56. LOCATION: [facility] BREAST COMPOSITION: There are scattered areas of fibroglandular density. FINDINGS: RIGHT BREAST: No significant suspicious finding. LEFT BREAST: No significant suspicious finding. Biopsy marking clip. DIAGNOSTIC CATEGORY 1--NEGATIVE. RECOMMENDATIONS: ROUTINE MAMMOGRAM AND CLINICAL EVALUATION IN 12 MONTHS. Dictated by: Epifanio Cedeno DO on 04/05/2025 at 11:24 Approved by: Epifanio Cdeeno DO on 04/05/2025 at 11:46
--- OUTSIDE RECORDS SUMMARY | 2025-04-05 09:40 | XMS_ITS | CCD ---
Author Organization [facility] Care Team Providers Care Act English Tutor Name Role Phone SANTA AUGUSTIN Unavailable Unavailable CASSIDY, AHMED Unavailable Unavailable CASSIDY, AHMED Unavailable Unavailable MARY KATE MAST Unavailable Unavailable Santa Augustin Primary Care Provider [phone] Santa Augustin MD Primary Care Provider Santa Augustin MD Primary Care Provider Zachary Pascual Unavailable Geneva Naik Unavailable MD Santa Augustin Primary Care Provider DO [place] [facility] Provider MD Austyn Marco A Admit Provider MD Austyn Marco A Attending Provider Santa Augustin MD Primary Care Provider SANTA AUGUSTIN Primary Care Unavailable GEHLOT, UPENDER Attending Unavailable SANTA AUGUSTIN Primary Care Unavailable GEHLOT, UPENDER Attending Unavailable SANTA AUGUSTIN Primary Care Unavailable GEHLOT, UPENDER Attending Unavailable SANTA AUGUSTIN Primary Care Unavailable GEHLOT, UPENDER Attending Unavailable SANTA AUGUSTIN Primary Care Unavailable GEHLOT, UPENDER Attending Unavailable SANTA AUGUSTIN Primary Care Unavailable GEHLOT, UPENDER Attending Unavailable SANTA AUGUSTIN Primary Care Unavailable GEHLOT, UPENDER Attending Unavailable SANTA AUGUSTIN Primary Care Unavailable GEHLOT, UPENDER Attending Unavailable ANUSHA .ROSMERY Consulting UnavailMallory Bullard, DR DE OLIVEIRA Admitting Unavailable DEMETRIA, DR SANTA Brown Primary Care Unavailable MEHRAN Bullard, DR DE OLIVEIRA Attending Unavailable MIR HENRY Consulting Unavailable DEMETRIA, DR SANTA Brown Primary Care Unavailable MARIA [...] Unavailable Santa Augustin MD Primary Care Provider [phone] SANTA AUGUSTIN Primary Care Unavailable RYLIE GRIFFIN Attending Unavailable Santa Augustin MD Primary Care Provider [phone] Santa Augustin MD Primary Care Provider [phone] Tim Barker MD Unavailable CHRISTINE BROWN Attending Unavailable CHRISTINE BROWN Referring Unavailable SANTA AUGUSTIN Primary Care Unavailable CHRISTINE BROWN Attending Unavailable SANTA AUGUSTIN Primary Care Unavailable Santa Augustin MD Primary Care Provider [phone] Santa Augustin MD Primary Care Provider [phone] Niru DIAZ, amador F Unavailable Jesus Aguiar DO Unavailable Santa Augustin MD Primary Care Provider Conrad Mccullough DO Attending Provider Conrad Mccullough Attending Unavailable Conrad Mccullough Admitting Unavailable Santa Augustin Primary Care Unavailable Santa Augustin Primary Care Unavailable Conrad Mccullough Admitting Unavailable Conrad Mccullough Attending Unavailable Conrad Mccullough Admitting Unavailable Jamel, Conrad Attending Unavailable Augustin, Santa E Primary Care Unavailable Jamel, Conrad Admitting Unavailable Murzhen, Conrad Attending Unavailable Santa Augustin Primary Care Unavailable Santa Augustin MD Primary Care Provider [phone] RADHA PENALOZA Attending Unavailable SANTA AUGUSTIN Referring Unavailable SANTA AUGUSTIN Primary Care Unavailable SANTA AUGUSTIN Referring Unavailable SANTA AUGUSTIN Primary Care Unavailable JOSE RAFAEL POSADAS Admitting Unavailable JOSE RAFAEL POSADAS Attending Unavailable JOSE RAFAEL POSADAS Referring Unavailable SANTA AUGUSTIN Primary Care Unavailable Santa Augustin MD Primary Care Provider Santa Augustin MD Attending Provider XENA MARRUFO F Attending Unavailable NIRU, AHMAD F Referring Unavailable MURCEK, CONRAD W Attending Unavailable NIRU, AHMANavjot F Referring Unavailable MURCEK, CONRAD W Referring Unavailable MURCEK, CONRAD W Attending Unavailable MURCEK, CONRAD W Attending Unavailable MURCEK, CONRAD W Attending Unavailable VANDANA CHEN Attending Unavailable NIRU, AHMAD F Attending Unavailable Enid Briones APRN Attending Provider Zachary Pascual MD Attending Provider Allergies Allergy ClassificationReported Allergen(s)Allergy TypeDate of OnsetReaction(s) Facility (20 sources)chlorproMAZINE; Translations: [CHLORPROMAZINE]Drug Rheutck74-80-4011 Other: See Comments, muscle crampsOhio[facility] (20 sources)Trifluoperazine; Translations: [TRIFLUOPERAZINE]Drug Allergy 30-13-9440Rttmn (See Comments), muscle crampsOhioHealth (1 source)chlorproMAZINEDrug Csvypym29-48-7161[facility] Rep[facility] Medications Current Medications MedicationDrug Class(es)DatesSig (Normalized)Sig (Original)amLODIPine 5 mg oral tablet (1 source)Dihydropyridine Calcium Channel BlockerStart: 54-51-7580ziih 1 tablet by mouth once dailyamLODIPine (NORVASC) 5 MG tablet Take 1 tablet by mouth daily 14 tablet 0 11/23/2017 LiehlhJ2-Lkpcn-S28R65-Vlogcj-Pambipzlur (Neuriva Plus Brain Performance) 1.7 mg-400 mcg- 2.4 mcg capsule (6 sources)Start: 28-34-6194yvqt 1 capsule by mouth once daily B1-Apsty-X47I39-Lmcywv-Ziwuvshtbb (Neuriva Plus Brain Performance) 1.7 mg-400 mcg- 2.4 mcg capsule Active 1 CAP PO Daily October 31, 2024 12:00am Complies with drug therapyStart: 38-55-4668ckrq 1 capsule by mouth once daily N3-Tyowq-O52S73-Wzkjjg-Sdelyyszzc (Neuriva Plus Brain Performance) 1.7 mg-400 mcg- 2.4 mcg capsule Active 1 CAP PO Daily October 31, 2024 12:00amCalcium Carb- Cholecalciferol (Oyster Shell Calcium/Vitamin D) 500-5 MG-MCG pack (4 sources)Start: 11-05-2024 End: 61-99-4469owwm 1000 mg by mouth once in the morning, then take 1000 mg by mouth in the evening, then take 1000 mg by mouth at bedtimeCalcium Carb- Cholecalciferol (Oyster Shell Calcium/Vitamin D) 500-5 MG-MCG pack Indications: Hypocalcemia Take 1,000 mg by mouth in the morning and 1,000 mg in the evening and 1,000 mg before bedtime. 180 each 1 11/05/2024 12/05/2024 Activecephalexin 500 mg oral capsule (1 source)Cephalosporin AntibacterialStart: 77-38-9540mbzu 500 mg by mouth every six hoursCephalexin Active 500 MG PO Q6H 40 10 March 11, 2022 12:00am clonazePAM 1 mg oral tablet (20 sources)BenzodiazepineStart: 09-14-2019 End: 79-19-3348vdrq 1 tablet by mouth once daily at bedtimeClonazepam 1 mg tablet Active 1 MG PO Daily at bedtime March 11, 2022 12:00am Complies with drugtherapyStart: 60-12-4316buqg 1 tablet by mouth once daily as needed clonazePAM (KLONOPIN) 0.5 mg tablet Take 0.5 mg by mouth once daily. Also as needed 11/20/2018 ActiveCobalamin Combinations (NEURIVA PLUS PO) (1 source)Cobalamin Combinations (NEURIVA PLUS PO) Take by mouth 0 Active docosahexaenoic acid 120 mg / eicosapentaenoic acid 180 mg oral capsule (20 sources)omega-3 (fish oil) 1000 MG capsule 1 capsule 1 (one) time each day at the same time Activefluticasone (1 source)Corticosteroidfluticasone propionate (FLONASE NASAL) Use in the nose. As needed Activekrill oil (1 source)take 1 capsule by mouth in the dovkhhdtmbkq-hi-6-dvp-bbp-ksqnpms-ast (KRILL OIL) 1,635-077-13-80 mg capsule Take by mouth in the evening.Active lithium carbonate 300 mg extended release oral tablet (20 sources)Start: 73-38-9355fvkk 1 tablet by mouth twice dailyLithium Carbonate 300 mg tablet extended release Active 300 MG PO Twice daily September 19, 2023 12:00am Complies with drug therapyStart: 48-79-7544hdoh 2 tablets by mouth once daily at bedtimeLithium Carbonate 300 mg tablet extended release Active 600 MG PO Daily at bedtime September 182:00amStart: 90-38-4980qneq 600 mg by mouth once daily at bedtimeLithium Carbonate Active 600 MG PO Daily at bedtime September 19, 2023 12:00amStart: 05-18-2022 End: 62-35-5024hafw 3 tablets by mouth once dailylithium (LITHOBID) 300 MG CR tablet Take 3 (three) tablets (900 mg total) by mouth daily . 90 tablet 1 06/21/2022 ActiveStart: 33-77-6905vixo 1 tablet by mouth once dailylithium (ESKALITH) 450 MG CR tablet Take 1 (one) tablet (450 mg total) by mouth daily . 30 tablet ActiveStart: 10-17-2020 End: 77-41-1275quxt 2 tablets by mouth once dailylithium (ESKALITH) 450 MG CR tablet Take 2 (two) tablets (900 mg total) by mouth nightly . 180 tablet 1 09/14/2021 11/19/2021 DiscontinuedStart: 08-04-2020 End: 09-12-7091tgce 2 tablets by mouth once dailylithium (ESKALITH) 450 MG CR tablet Take 2 (two) tablets (900 mg total) by mouth nightly . 180 tablet 1 08/22/2020 ActiveStart: 45-10-5639xpvi 1 tablet by mouth twice dailylithium carbonate ER 450 mg CR tablet Take 450 mg by mouth twice daily. 12/28/2018 Activetake 1 capsule by mouth at bedtimelithium 600 MG capsule Take 600 mg by mouth at bedtime Activelithium 600 MG capsule Take 300 mg by mouth in the morning and 300 mg in the evening. Take with meals. Activetake 2 tablets by mouth every twenty-four hoursLithium Carbonate ER 300 MG 2 tab(s) Orally Once a day ActiveMegaRed [place]-3 Krill Oil 500 MG (10 sources)MegaRed [place]-3 Krill Oil 500 MG as directed Orally ONCE A DAY Activemirtazapine 15 mg oral tablet (1 source)Start: 21-56-6081uvfa 1 tablet by mouth once dailymirtazapine (REMERON) 15 MG tablet Take 1 tablet by mouth nightly 14 tablet 0 11/22/2017 ActiveMisc Natural Products (Neuriva) capsule (20 sources)Misc Natural Products (Neuriva) capsule ActiveMisc Natural Products (Neuriva) capsule as directed Orally ActiveNeuriva - (10 sources)Neuriva - as directed Orally ActiveNON FORMULARY (1 source)NON FORMULARY in the morning. Neureva Brain supplement daily. Active OLANZapine 15 mg oral tablet (20 sources)Atypical AntipsychoticStart: 85-87-2139oxql 1 tablet by mouth once daily at bedtimeOlanzapine (Zyprexa) 15 mg tablet Active 15 MG PO Daily at bedtime September 19, 2023 12:00am Complies with drug therapyStart: 05-18-2022 OLANZapine (ZyPREXA) 10 MG tablet 1/2 tab daily HS X 1 wk, and then 1 daily HS thereafter . 30 tablet 0 05/18/2022 ActiveStart: 03-02-2022 End: 45-44-2021fnxf 1 tablet by mouth once dailyOlanzapine 20 mg tablet Discontinued 20 MG PO Daily March 11, 2022 12:00am March 23, 2022 2:37pm Start: 02-12-2022 End: 03-13-7152ftdt 1 tablet by mouth once dailyOLANZapine (ZYPREXA) 15 MG tablet Take 1 (one) tablet (15 mg total) by mouth nightly . 90 tablet 1 0 02/12/2022 03/02/2022 DiscontinuedStart: 12-28-2018 End: 04-59-9848ewix 1 tablet by mouth once dailyOLANZapine (ZYPREXA) 10 MG tablet Take 1 (one) tablet (10 mg total) by mouth nightly . 90 tablet 1 0 01/18/2022 02/12/2022 Discontinued (Reorder)[place] 7-Tjf-Qjt-Fish Oil-Krill (Megared Advanced 4-In-1) 339 mg-314 mg- 500 mg capsule (18 sources)Start: 54-65-2759Ehmtg 3-Qjx-Uix-Fish Oil-Krill (Megared Advanced 4-In-1) 339 mg-314 mg- 500 mg capsule Active 1 CAPPO Daily September 19, 2024 3:47pm Complies with drug therapyStart: 13-31-3732Tqhpd 3-Xmk-Hfa-Fish Oil-Krill (Megared Advanced 4-In-1) 339 mg-314 mg- 500 mg capsule Active 1 CAPPO Daily September 19, 2024 3:47pmStart: 09-19-2023 End: 76-53-5957Rmfth 8-Zcl-Hgc-Fish Oil-Krill (Megared Advanced 4-In-1) 339 mg- 314 mg- 500 mg capsule Discontinued1 CAP PO 1 to 2 times per day September 19, 2023 12:00am September 19, 2024 3:47pmStart: 82-20-4600Lzyoj 7-Vfh-Ecf-Fish Oil- Krill (Megared [employer] 4-In-1) 339 mg-314 mg- 500 mg capsule Active 1 CAPPO 1 to 2 times per day September 19, 2023 12:00am24 hr paliperidone 6 mg extended release oral tablet (20 sources)Atypical AntipsychoticStart: 05-18-2022 End: 64-16-8751lbia 1 tablet by mouth once dailypaliperidone (INVEGA) 6 MG 24 hr tablet Take 1 (one) tablet (6 mg total) by mouth daily . 30 tablet1 06/21/2022 ActiveStart: 04-19-2022 End: 86-99-3886buvmorgzwdgz palmitate (INVEGA SUSTENNA) injection 156 mgStart: 04-19-2022 End: 50-69-4188kgutukgycmvu palmitate (INVEGA SUSTENNA) injection 156 mgStart: 03-23-2022 End: 99-71-2877zjmu 1 tablet by mouth once dailyPaliperidone 9 mg tablet extended release 24hr Discontinued 9 MG PO Daily 30 March 23, 2022 1 2:00am September 19, 2023 4:38pmStart: 03-23-2022 End: 56-72-5155zsqqqs 156 mg by intramuscular injection every 30 days Paliperidone Palmitate (Invega Sustenna) 156 mg/mL syringe Discontinued 156 MG IM Q30D March 23, 2022 12:00am September 19, 2023 4:38pmStart: 12-18-2017 inject 156 mg by intramuscular injection every 30 dayspaliperidone palmitate (INVEGA SUSTENNA) 78 MG/0.5ML SUSP IM injection Inject 156 mg into the muscle every 30 days Last dose given 11/18/17 156 mg 0 12/18/2017 Activepolyethylene glycol 3350 51481 mg powder for oral solution (3 sources)Osmotic LaxativeStart: 08-19-2019 End: 46-54-4520tdgd 17 g by mouth in the morningPURELAX 17 gram/dose powder Take 17 g by mouth in the morning. 08/19/2019 01/11/2025 Discontinued (Therapy completed)sod sulf-pot chloride-mag sulf 1.479-0.188- 0.225 gram tablet (2 sources)Start: 99-89-5747ego sulf-pot chloride-mag sulf 1.479-0.188- 0.225 gram tablet Indications: Encounter for colonoscopy due to history of colonic polyp Please see instructional sheet given by physicians office. 24 tablet 01/11/2025 ActivetraZODone hydrochloride 50 mg oral tablet (1 source)Serotonin Reuptake InhibitorStart: 76-72-1773jtez 1 tablet by mouth once daily as needed for sleeptraZODone (DESYREL) 50 MG tablet Take 1 tablet by mouth nightly as needed for Sleep 14 tablet 0 11/22/2017 ActiveUNABLE TO FIND (3 sources) End: 27-42-4276ayqq 2 tablets by mouth in the morningUNABLE TO FIND Take 2 tablets by mouth in the morning. Lluvia- Promotes regularity, bloating, and gas relief- dietary supplement. 01/11/2025 Discontinued (Therapy completed)take 2 tablets by mouth in the morningUNABLE TO FIND Take 2 tablets by mouth in the morning. Lluvia- Promotes regularity, bloating, and gasrelief- dietary supplement. Activetake 2 tablets by mouth in the morningUNABLE TO FIND Take 2 tablets by mouth in the morning. Lluvia- Promotes regularity, bloating, and gasrelief- dietary supplement. 0 Ejpgdv72 hr divalproex sodium 500 mg extended release oral tablet (1 source)Mood Stabilizer, Anti-epileptic AgentStart: 38-44-9210auhw 1 tablet by mouth twice dailydivalproex (DEPAKOTE ER) 500 MG extended release tablet Take 1 tablet by mouth 2 times daily 28 tablet 0 11/22/2017 Active Completed/Discontinued Medications MedicationDrug Class(es)DatesSig (Normalized)Sig (Original)acetaminophen 325 mg / oxyCODONE hydrochloride 5 mg oral tablet (2 sources)Opioid AgonistStart: 10-08-2023 End: 62-71-8691sxuWADBDO-acetaminophen (PERCOCET) 5-325 MG per tablet 1 tablet Start: 10-08-2023 End: 63-31-3433cxjALHCIK-acetaminophen (PERCOCET) 5-325 MG per tablet Indications: Closed fracture of right wrist,initial encounter Take 1 tablet by mouth every 6 hours as needed for Pain for up to 3 days. Intended supply: 3 days. Take lowest dose possible to manage pain Max Daily Amount: 4 tablets 12 tablet 0 10/08/2023 10/11/2023 Lgeoihvjm264860 200 actuat albuterol 0.09 mg/actuat metered dose inhaler (1 source)beta2-Adrenergic AgonistStart: 03-13-2025 End: 11-29-3885Ivzpxwcsm Sulfate 90 mcg/actuation HFA aerosol inhaler Discontinued 2 INH INHALATION EVERY 4-6 HOURS as needed for shortness of breath or wheezing 6.7 March 13, 2025 12:00am March 18, 2025 2:58pmbenzonatate 100 mg oral capsule (1 source)Non-narcotic AntitussiveStart: 03-13-2025 End: 13-87-7445ifjc 1 capsule by mouth three times daily as needed for cough Benzonatate 100 mg capsule Discontinued 100 MG PO Three times daily as needed for cough 9 3 2024 12:00am March 18, 2025 2:59pmCoffee Xt- Phosphatidyl Serine (Neuriva Original) 100-100 mg capsule (10 sources)Start: 09-19-2023 End: 41-20-6509pkvl 1 capsule by mouth once dailyCoffee Xt-Phosphatidyl Serine (Neuriva Original) 100-100 mg capsule Discontinued 1 CAP PO daily September 19, 2023 12:00am September 19, 2024 3:47pmStart: 89-91-1594wmhj 1 capsule by mouth once dailyCoffee Xt-Phosphatidyl Serine (Neuriva Original) 100-100 mg capsule Active 1 CAP PO daily September 19, 2023 12:00amdocusate sodium 100 mg oral capsule (20 sources)Start: 09-19-2023 End: 99-90-6636hltd 1 capsule by mouth twice daily as needed for constipation Docusate Sodium 100 mg capsule Discontinued 100 MG PO Twice daily as needed for constipation September 19, 2023 12:00am February 18, 2025 1:59pmStart: 08-19-2019 End: 60-80-9645rgyd 1 capsule by mouth twice dailydocusate sodium (COLACE) 100 mg capsule Take 1 capsule (100 mg total) by mouth 2 (two) times a day.10 capsule 0 08/19/2019 09/05/2023 Discontinued (Patient Stopped On Own)take 1 capsule by mouth once daily as neededDocusate Sodium (DSS) 100 MG capsule 1 capsule as needed Orally Once a day ActiveKnee Brace - (5 sources)Start: 09-68-6532Kzzf Brace - as directed closed fracture left patella May, Not-TakingStart: 14-48-1269Vwswc: 32-20-3196Ieis Brace - as directed closed fracture left patella May, ActiveOXcarbazepine 300 mg oral tablet (16 sources)Anti-epileptic AgentStart: 03-23-2022 End: 39-37-9208olhg 1 tablet by mouth twice dailyOxcarbazepine 300 mg Tablet Discontinued 300 MG PO Twice daily 60 30 March 23, 2022 12:00am September 19, 2023 4:37pm Problems Active Problems Problem ClassificationProblemDateDocumented DateEpisodic/ChronicCataract (20 sources)Bilateral age-related nuclear cataracts; Translations: [Age-related nuclear cataract, bilateral]Onset: 274356-68-0609ZspihqtVfgfroi kidney disease (20 sources)Chronic kidney disease stage 3; Translations: [Chronic kidney disease stage 2]Onset: 09-18-2019 Resolved: 111476-76-2428JbzgwbwNjltavykwm and other anemia (8 sources)Anemia of renal disease; Translations: [Anemia in chronic kidney disease]ChronicDisorders of lipid metabolism (20 sources)Hyperlipidemia; Translations: [Hyperlipidemia, unspecified]Onset: 11-12-2024 Resolved: 898580-12-2560FsurkcxJjend and electrolyte disorders (19 sources)Hypernatremia; Translations: [Hyperosmolality and hypernatremia] Onset: 11-12-2024 Resolved: 121272-83-5172LgbzfnliMukxio and vomiting (1 source)Nausea and vomiting; Translations: [Nausea with vomiting, unspecified] EpisodicNoninfectious gastroenteritis (1 source)Noninfective gastroenteritis and colitis, unspecifiedEpisodic Nutritional deficiencies (20 sources)Vitamin D deficiency; Translations: [Vitamin D deficiency, unspecified]Onset: 847784-65-6561CioismbJujsg aftercare (2 sources)H/O: high risk medication; Translations: [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]EpisodicOther aftercare (13 sources)Other senior living (current) drug therapy; Translations: [Long-term (current) use of other medications]Onset: 04-01-2021 Resolved: 62-07-2410CtcgutjaYinog aftercare (15 sources)On lithium; Translations: [Other senior living (current) drug therapy] Onset: 11-12-2024 Resolved: 623178-80-1593JpyywhwpHzjoy circulatory disease (1 source)Elevated blood-pressure reading without diagnosis of hypertension; Translations: [Elevated blood-pressure reading, without diagnosis of hypertension]EpisodicOther diseases of kidney and ureters (8 sources)Secondary hyperparathyroidism; Translations: [Secondary hyperparathyroidism of renal origin]ChronicOther diseases of kidney and ureters (2 sources)Secondary hyperparathyroidism of renal origin; Translations: [SEC HYPERPARATHYROIDISM RENAL ORIGN]Onset: 45-55-2913FtghmhcWamvd endocrine disorders (20 sources)Hyperparathyroidism; Translations: [Hyperparathyroidism, unspecified]Onset: 857569-45-4081HjatykpWotuh endocrine disorders (10 sources)Hyperparathyroidism, unspecified; Translations: [Hyperparathyroidism, unspecified]Onset: 10-72-2325AcygzupIslxm endocrine disorders (1 source)Primary hyperparathyroidism; Translations: [Primary hyperparathyroidism]78-23-7148WfsyprmFxmqq endocrine disorders (1 source)Primary hyperparathyroidism; Translations: [Primary hyperparathyroidism]Onset: 23-96-0740QhqagyiVmkbs eye disorders (20 sources)Downbeat nystagmus; Translations: [Other forms of nystagmus]Onset: 429049-22-5598NchdhmsHbztq eye disorders (2 sources)Hypertropia of right eye; Translations: [Vertical strabismus, right eye]43-80-5693HkahmzsgHzfvv gastrointestinal disorders (1 source)Swollen abdomen; Translations: [Right lower quadrant abdominal swelling, mass and lump]EpisodicOther nervous system disorders (20 sources)Chronic pain; Translations: [Other chronic pain]Onset: 09-30-2024 Resolved: 636350-12-2819RdxqgsbRcssj nutritional; endocrine; and metabolic disorders (20 sources)Hypercalcemia; Translations: [Hypercalcemia]Onset: 06-14-2024 93-16-0604OomfoisMtwaw nutritional; endocrine; and metabolic disorders (10 sources)Hypermagnesemia; Translations: [Hypermagnesemia]ChronicOther nutritional; endocrine; and metabolic disorders (12 sources)Hypercalcemia; Translations: [Hypercalcemia]Onset: 04-01-2021 Resolved: 59-82-7607DqkkwlyCqwcc nutritional; endocrine; and metabolic disorders (3 sources)Hypermagnesemia; Translations: [Hypermagnesemia E83.41]Onset: 04-01-2021 Resolved: 52-62-9470IegldpaDdgdl nutritional; endocrine; and metabolic disorders (1 source)Body mass index 25-29 - overweight; Translations: [Body mass index (BMI) 25.0-25.9, adult]EpisodicOther nutritional; endocrine; and metabolic disorders (14 sources)Hyperuricemia; Translations: [Hyperuricemia without signs of inflammatory arthritis and tophaceous disease]Onset: 11-12-2024 Resolved: 338165-74-4923DsmoaqlzQfbyn nutritional; endocrine; and metabolic disorders (5 sources)Hyperuricemia without signs of inflammatory arthritis and tophaceous disease; Translations: [Other abnormal blood chemistry]15-40-3152CrqkqdlcNlaqg screening for suspected conditions (not mental disorders or infectious disease) (20 sources)Encounter for screening mammogram for malignant neoplasm of breast; Translations: [Abnormal findings on diagnostic imaging of breast]Onset: 04-08-2022 Resolved: 07-40-5637EddxxbuwJpqjd skin disorders (2 sources)Localized swelling, mass and lump, right upper limb; Translations: [LOC SWELL MASS LUMP RT UPPER LIMB]Onset: 93-32-8971CiygijanFbadw upper respiratory disease (1 source)Nasal congestion; Translations: [Nasal congestion]EpisodicOther upper respiratory infections (3 sources)Acute sinusitis; Translations: [Acute sinusitis, unspecified]Onset: 775490-44-9295PteesjsrDbtoewcpq (except that caused by tuberculosis or sexually transmitted disease) (1 source)Pneumonia; Translations: [Pneumonia, unspecified organism]Episodic Residual codes; unclassified (17 sources)Hallucinations; Translations: [Hallucinations, unspecified]Onset: 11-12-2024 Resolved: 677367-79-9810BxjrqaemNbcgnfq on above:Problem List clean-up per request of Phys. EHR CmteResidual codes; unclassified (2 sources)Hallucinations, unspecified; Translations: [Hallucinations]03-11-2022 EpisodicResidual codes; unclassified (2 sources)Family history of malignant neoplasm of digestive organs; Translations: [FAM HX MALIG NEOPLASM DIGESTIV ORGN]Onset: 59-89-9463Eubbbait Residual codes; unclassified (1 source)Postmenopausal state; Translations: [Asymptomatic menopausal state] EpisodicResidual codes; unclassified (2 sources)History of parathyroidectomy; Translations: [Other specified postprocedural states]18-71-6150BpggxinbRlynceqqbjjku and other psychotic disorders (20 sources)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 substance or known physiological condition; Translations: [Schizophrenia]Onset: 10-26-2017 Resolved: 879161-44-0891MozykalPkcpoqw on above:Problem List clean-up per request of Phys. EHR CmteSyncope (1 source)Syncope and collapse; Translations: [Syncope and collapse]Episodic Unclassified (1 source)H/O: high risk medication; Translations: [Long-term use of high-risk medication]Unclassified (2 sources)Personal history of colon polyps, unspecified; Translations: [Personal history of colon polyps, unspecified]Onset: 83-94-6253Glnktonrqkkw (1 source)Colon Cancer ScreeningOnset: 94-83-7646Cwhozyuludab (1 source)history of colon polypsOnset: 59-59-7752Epatswu tract infections (19 sources)Urinary tract infectious disease; Translations: [Urinary tract infection, site not specified]Onset: 11-12-2024 Resolved: 442751-76-5127RkvqxucdWrcfedv on above:Problem List clean-up per request of Phys. EHR CmteViral infection (1 source)Disease caused by 2019-nCoV; Translations: [COVID-19] Past or Other Problems Problem ClassificationProblemDateDocumented DateEpisodic/ChronicAbdominal pain (1 source)Right lower quadrant pain; Translations: [Right lower quadrant pain] Onset: 46-79-0066YqhfrqwqWtlaein disorders (20 sources)Generalized anxiety disorder; Translations: [Generalized anxiety disorder]Onset: 08-22-2020 Resolved: 584955-23-3948OkdyqjiUjsfvbmzp and vision defects (20 sources)Diplopia; Translations: [Diplopia]Onset: 088060-95-5497 EpisodicChronic kidney disease (12 sources)Chronic kidney disease; Translations: [Chronic kidney disease, stage 3b]Onset: 04-01-2021 Resolved: 04-01-2021 Codes: Fall (1 source)Fall (on) (from) unspecified stairs and steps, initial encounter; Translations: [FALL ON FROM UNS STAIRS STEPS INIT]Onset: 03-33-5663Ruefynsi Essential hypertension (20 sources)Benign essential hypertension; Translations: [Essential (primary) hypertension]Onset: 09-30-2024 Resolved: 831499-15-6923IhaaeogCqfiwhcs of lower limb (1 source)Other fracture of left patella, initial encounter for closed fracture Onset: 05-06-2021 Resolved: 09-50-0067MeahfhkjMrivyram of lower limb (1 source)Other fracture of upper and lower end of right fibula, initial encounter for closed fracture; Translations: [OTH FX UP LOW RT FIB INIT CLOS FX] Onset: 58-87-5441WgnqcdrzCpofbufq of upper limb (20 sources)Closed fracture of right wrist; Translations: [Fracture of unspecified carpal bone, right wrist, initial encounter for closed fracture] Onset: 497327-10-7350NkcjjqroHjvaion and fatigue (1 source)Fatigue; Translations: [Other fatigue]Onset: 29-43-2968GrwznthaEonf disorders (20 sources)Mild manic bipolar I disorder; Translations: [Bipolar disorder, current episode manic without psychotic features, mild]Onset: 02-09-2013 Resolved: 426636-68-2178UkhghrxYfalrpeerzq chest pain (1 source)Chest pain; Translations: [Other chest pain]Onset: 63-80-6098Dwnuuyfm Other connective tissue disease (20 sources)Full thickness rotator cuff tear; Translations: [Complete rotator cuff tear or rupture of right shoulder, not specified as traumatic]Onset: 09-30-2024 Resolved: 535411-57-9036YzumahzrXalmn eye disorders (20 sources)Dry eyes; Translations: [Dry eye syndrome of bilateral lacrimal glands]Onset: 475179-28-9148YfzhhqzxBapgr gastrointestinal disorders (1 source)Constipation; Translations: [Constipation, unspecified]Onset: 28-65-1962AklznapmVydqq gastrointestinal disorders (4 sources)Pelvic mass; Translations: [Intra-abdominal and pelvic swelling, mass and lump, unspecified site]Onset: 08-18-2019 Resolved: 551160-43-2080MjkkuwgfRzgjl gastrointestinal disorders (1 source)Chronic constipation; Translations: [Other constipation]09-05-2023 EpisodicOther nervous system disorders (4 sources)Postoperative pain ; Translations: [Other acute postprocedural pain] Onset: 10-09-2019 Resolved: 554791-74-6005VjjhvxneYehcf non-traumatic joint disorders (1 source)Pain in left kneeOnset: 05-06-2021 Resolved: 64-89-2294DjojfzukGkhss non-traumatic joint disorders (4 sources)Pain in right ankle and joints of right foot; Translations: [PAIN IN RIGHT ANKLE]Onset: 27-71-8843PzmfswbkZfpod non-traumatic joint disorders (1 source)Shoulder joint pain; Translations: [Pain in right shoulder]Onset: 46-38-5587YjkdhhwiMmqeqduh codes; unclassified (20 sources)History of total hysterectomy with bilateral salpingo-oophorectomy; Translations: [Acquired absenceof both cervix and uterus]Onset: 10-18-2019 Resolved: 384797-94-4676MztwwqmiSejnswsm codes; unclassified (1 source)Family history of malignant neoplasm of breast; Translations: [FAMILY HX MALIG NEOPLASM OF BREAST]Onset: 04-80-8334Mcghqlxi Results Test NameValueInterpretationReference RangeFacilityCalciumon 32-42-6498Rcanufi [Mass/Vol]9.9 mg/dLNormal8.6-10.3The [facility] Physician GroupComment on above: Result Comment: PERFORMED BY: [place] [address] PATHOLOGIST CHILD LIFE THERAPIST SCOTT GARCIA M.D.Performed By: #### [place] #### [place] [address] USACalcium [Mass/volume] in Serum or PlasmaOrdered By: Conrad Mccullough on 38-62-6380Ooyrppi [Mass/Vol]Calcium [Mass/volume] in Serum or Plasma8.6-10.3FSelect Medical Cleveland Clinic Rehabilitation Hospital, AvonParathyrin.intact [Mass/volume] in Serum or PlasmaOrdered By: Conrad Mccullough on 50-15-8890Nedrtgchru.intact [Mass/Vol]Parathyrin.intact [Mass/volume] in Serum or Xyczhc80-95WoyltkthnFairfield Medical CenterParathyroid Hormone Intacton 83-85-2734Xgzkuuouuhj Hormone Migjdn31.7 pg/gUZdovub14-07Ctj [facility] Physician GroupComment on above:Result Comment: PERFORMED BY: [facility] [address] [place] [address] PATHOLOGIST CHILD LIFE THERAPIST SCOTT GARCIA M.D.Performed By: #### PTH ####[facility] [address] [place] [address] USACalciumon 24-43-8180Etivfdr [Mass/Vol] 9.8 mg/dLNormal8.6-10.3NONE HealthcareComment on above:Order Comment: Comment Run stat and call to Dr. Hughes Comment: PERFORMED BY: [facility] [address] [place] [address] PATHOLOGIST CHILD LIFE THERAPIST SCOTT GARCIA M.D.Performed By: #### PTH, CA #### [facility] [address] [place] [address] USACalcium [Mass/Vol]on 24-01-6630Reiuzzj Run stat and call to Dr. McculloughUNC HEALTH APPALACHIANJOSEEASTERN STATE [facility]ITAL HealthcareCalcium [Mass/volume] in Serum or Plasma Ordered By: Conrad Mccullough on 11-27-6079Jitdsnm [Mass/Vol]Calcium [Mass/volume] in Serum or Plasma8.6-10.3FSelect Medical Cleveland Clinic Rehabilitation Hospital, AvonINTACT PTH INTRAOPERATIVE 10 Mon 71-36-0439YPEGAB PTH INTRAOPERATIVE 10 M34.1 pg/mL12 - 88 pg/mLNOMS HealthcareNONE HealthcareINTACT PTH INTRAOPERATIVE 10 M128.2 pg/mLHigh 12 - 88 pg/mLNOMS HealthcareInterpretation and review of laboratory results AbnormalNOMS HealthcareNOMS HealthcareINTACT PTH INTRAOPERATIVE 15 Mon 52-60-1544UNOTFO PTH INTRAOPERATIVE 15 M24.2 pg/mLNOMS HealthcareNOMS Healthcare INTACT PTH INTRAOPERATIVE 15 M139.1 pg/mLNOMS HealthcareNOMS HealthcareINTACT PTH IO ADDITIONAL ([facility])on 13-26-9749RBPCPT PTH IO RHCMGFMRWE364.2 pg/mLNOMS HealthcareComment additional 10min PTH after another specimen Minutes from excision: 10FIRELANDSNOMS HealthcareINTACT PTH IO POST INDUCTIONon 22-69-3509FOUXSD PTH IO POST NDBOLHSCS46.1Xksx69.0 - 88.0[facility] Interpretation and review of laboratory resultsAbAnson Community HospitalIntact PTH IO Additionalon 34-29-6167Zulzqs PTH IO Kruvjnmkoj664.2 pg/mLNormalThe [facility]c Health Wayne Physician GroupComment on above:Order Comment: Comment additional 10min PTH after another specimen Minutes from excision: 10Result Comment: PERFORMED BY: [address] [address] PATHOLOGIST CHILD LIFE THERAPIST SCOTT GARCIA M.D.Performed By: #### STATPTHIO ADDL ####[facility] [address] [place] [address] USAIntact PTH IO Post Inductionon 23-66-5292Uwauym PTH IO Post Leutmqnat39.0Came58.0-88.0The [facility] Physician GroupComment on above:Result Comment: PERFORMED BY: [address] [address] PATHOLOGIST CHILD LIFE THERAPIST SCOTT GARCIA M.D.Performed By: #### STATPTH POSTIND, PTHIO 10 MIN, PTHIO 15 ####[address] [address] USAIntact PTH Intraoperative 10 Mon 86-70-0568Boiigz PTH Intraoperative 10 M34.1 pg/mL Yttlxv03-68Ksg [facility] Physician GroupComment on above:Result Comment: PERFORMED BY: [address] [address] PATHOLOGIST CHILD LIFE THERAPIST SCOTT GARCIA M.D.Performed By: #### PTHIO 15, PTHIO 10 MIN #### [facility] [address] [place] [address] USAIntact PTH Intraoperative 10 M128.2 pg/aJJvzj65-24Tgr [facility] Physician GroupComment on above:Result Comment: PERFORMED BY: [facility] [address] [place] [address] PATHOLOGIST CHILD LIFE THERAPIST SCOTT GARCIA M.D.Performed By: #### STATPTH POSTIND, PTHIO 10 MIN, PTHIO 15 ####[address] [place] [address] USAIntact PTH Intraoperative 15 Mon 89-66-7859Ejaqjx PTH Intraoperative 15 M24.2 pg/mL NormalThe [facility]c Health Wayne Physician GroupComment on above:Result Comment: PERFORMED BY: [place] [address] PATHOLOGIST CHILD LIFE THERAPIST SCOTT GARCIA M.D.Performed By: #### PTHIO 15, PTHIO 10 MIN #### [facility] [address] [place] [address] USAIntact PTH Intraoperative 15 M139.1 pg/mLNormalThe [facility] Physician GroupComment on above:Result Comment: PERFORMED BY: [place] [address] PATHOLOGIST CHILD LIFE THERAPIST SCOTT GARCIA M.D.Performed By: #### STATPTH POSTIND, PTHIO 10 MIN, PTHIO 15 ####[address] [address] [facility] 11-05-2024L Specimen: [id number] Received: 11/05/24 Status: GREGORIA Fleming Num: [id number] Spec Type: Surgical Subm Dr: Conrad Mccullough DO Tissues: A Parathyroid Gland (R/O LEFT INFERIOR PARATHYROI) B Parathyroid Gland (R/O LEFT SUPERIOR PARATHYROI) C Parathyroid Gland (R/O RIGHT SUPERIOR PARATHYRO) Procedures: HE/6, Gross/Micro L4/3, FS HE/6, DIFF QWIK/3 Age/ Patient Sex Location Account Attending Physician Nola Waller 64/F [place] [id number] Conrad Mccullough DO SPEC NUM: [id number] RECD: 11/05/24 STATUS: GREGORIA REJeff NUM: [id number] EVELIN: 11/05/[address] [facility] [address]: Conrad Mccullough DO ENTERED: 11/05/[address]: HAM TYPE: Surgical DEPT: S ENTERED BY: [id number] RECV BY: [id number] ORDERED: HE/6, Gross/Micro L4/3, FS HE/6, DIFF QWIK/3 ORDERED: HE/6, Gross/Micro L4/3, FS HE/6, DIFF QWIK/3 Pathological Diagnosis A. Rule out left inferior parathyroid adenoma , excision: - Hypercellular parathyroid tissue (0.3 grams). B. Rule out left superior parathyroid adenoma , excision: - Hypercellular parathyroid tissue (0.3 grams). C. Rule out right superior parathyroid adenoma , excision: - Hypercellular parathyroid tissue (0.3 grams). Clinical Information Hyperparathyroid Gross Description Part A is received fresh for frozen section labeled with the patients name, date of , and rule out left inferior parathyroid adenoma is a 0.3 grams, mirza-pink, ovoid rubbery nodule, 0.5 cm in greatest dimension with adherent adipose tissue up to 0.5 cm in thickness. The specimen is bisected and touch prep slides are prepared. The specimen is entirely submitted for frozen section as A1. (1, ns, [id number] A) Part B is received fresh for frozen section labeled with the patients name, date of , and rule out left superior parathyroid adenoma is a 0.3 grams, mirza-pink, ovoid rubbery Specimen: [id number] Received: 11/05/24 Status: GREGORIA Mitchelljeff Num: [id number] Spec Type: Surgical Subm Dr: Conrad Mccullough DO Tissues: A Parathyroid Gland (R/O LEFT INFERIOR PARATHYROI) B Parathyroid Gland (R/O LEFT SUPERIOR PARATHYROI) C Parathyroid Gland (R/O RIGHT SUPERIOR PARATHYRO) Procedures: HE/6, Gross/Micro L4/3, FS HE/6, DIFF QWIK/3 Patient: Nola Waller [id number] (Continued) Specimen: [id number] Received: 11/05/24 (Continued) Gross Description (Continued) Signed (signature on file) Jude Howard MD 11/06/24 1231 Specimen: Received: 11/05/24 Status: GREGORIA Mitchelljeff Num: [id number] Spec Type: Surgical Subm Dr: Conrad Mccullough DO Tissues: A Parathyroid Gland (R/O LEFT INFERIOR PARATHYROI) B Parathyroid Gland (R/O LEFT SUPERIOR PARATHYROI) C Parathyroid Gland (R/O RIGHT SUPERIOR PARATHYRO) Procedures: HE/6, Gross/Micro L4/3, FS HE/6, DIFF QWIK/3 Patient: Nola Waller [id number] (Continued) Specimen: [id number] Received: 11/05/24 (Continued) Gross Description (Continued) nodule, 0.6 cm in greatest dimension. The specimen is bisected and touch prep slides are prepared. The specimen is entirely submitted for frozen section as B1. (1, ns, [id number] B) Part C is received fresh for frozen section labeled with the patients name, date of , and rule out right superior parathyroid adenoma is a 0.3 grams, mirza-pink, ovoid rubbery nodule, 0.9 cm in greatest dimension. The specimen is bisected and touch prep slides are prepared. The specimen is entirely submitted for frozen section as C1. (1, ns, [id number] C) Intraoperative Diagnosis Part A: Rule out left inferior parathyroid adenoma , touch preparation and frozen section: - 0.3 grams hypercellular fat depleted parathyroid tissue. - Frozen section diagnosis conveyed to Dr. Mccullough by Dr. Howard on 11/05/2024 at 08:30 Part B: Rule out left superior parathyroid adenoma , touch preparation and frozen section: - 0.3 grams hypercellular fat depleted parathyroid tissue. - Frozen section diagnosis conveyed to Dr. Mccullough by Dr. Howard on 11/05/2024 at 08:45 (more content not included)...NormalThe [facility] Parathyrin.intact [Mass/Vol]on 08-08-2638VFVLRQMDTSW HORMONE AGQSSF64 pg/mL12 - 88 pg/mLNJIM TALIAFERRO [facility] HealthcareComment Run stat and call to Dr. McculloughUNC HEALTH APPALACHIANHERNANDOMercy hospital springfieldParathyrin.intact [Mass/volume] in Serum or PlasmaOrdered By: Conrad Mccullough on 54-67-2695Tkurqbgduz.intact [Mass/Vol]Parathyrin.intact [Mass/volume] in Serum or Jfnkjg75-64GrlcsmfruFairfield Medical CenterParathyrin.intact [Mass/volume] in Serum or Plasma --10 minutes post excisionOrdered By: Conrad Mccullough on 92-29-7191Legyrfjjat.intact 10 Min post excision [Mass/Vol] Parathyrin.intact [Mass/volume] in Serum or Plasma --10 minutes post excision [facility] Medical CenterParathyrin.intact [Mass/volume] in Serum or Plasma --post XXX challengeOrdered By: Conrad Mccullough on 11-05-2024 Parathyrin.intact post Unsp challenge [Mass/Vol]Parathyrin.intact [Mass/volume] in Serum or Plasma --post XXX challengeFairfield Medical Center Parathyrin.intact post Unsp challenge [Mass/Vol]Parathyrin.intact [Mass/volume] in Serum or Plasma --post XXX challengeFairfield Medical Center Parathyrin.intact [Mass/volume] in Serum or Plasma --post excisionOrdered By: Conrad Mccullough on 81-59-5932Jnowyzmqnw.intact post excision [Mass/Vol] Parathyrin.intact [Mass/volume] in Serum or Plasma --post rexoomdbCsiz15.0-88.0 [facility] Medical CenterParathyroid Hormone Intacton 11-05-2024 Parathyroid Hormone Tioifr20.0 pg/cEOyhgjx91-82Dbh [facility] Comment on above:Order Comment: Comment Run stat and call to Dr. Hughes Comment: PERFORMED BY: [facility] [address] [place] [id number] PATHOLOGIST CHILD LIFE THERAPIST SCOTT GARCIA M.D.Performed By: #### PTH, CA #### [facility] [address] [place] [address] USABasic Metabolic Panelon 37-59-8561Vuvgw gap [Moles/Vol]9.9 mmol/LNormal6.0-15.0The [facility] Physician GroupComment on above:Order Comment: Comment PSTPerformed By: #### PTH, BMP, [id number] ####[address] [place] [address] USACalcium [Mass/Vol]9.8 mg/dL Normal8.6-10.3The [facility] Physician GroupComment on above:Order Comment: Comment PSTPerformed By: #### PTH, BMP, [id number] ####[address] [place] [address] USAChloride [Moles/Vol]107 mmol/LNormal 98-107The [facility] Physician GroupComment on above:Order Comment: Comment PST Performed By: #### PTH, BMP, [id number] ####[address] [place] [address] USACO2 [Moles/Vol]29.9 mmol/GXeleik55.0-31.0The [facility] Physician GroupComment on above:Order Comment: Comment PSTPerformed By: #### PTH, BMP, [id number] ####[address] [address] USACreatinine [Mass/Vol]1.45 mg/dLHigh0.60-1.20The [facility] Physician GroupComment on above:Order Comment: Comment PSTPerformed By: #### PTH, BMP, [id number] ####[address] [address] USAEstimated GFR40.280 mL/MinNormalThe [facility] Physician GroupComment on above:Order Comment: Comment PSTPerformed By: #### PTH, BMP, [id number] ####[address] [address] USAGlucose [Mass/Vol]89 mg/uOTsbnkj36-477Zog [facility] Comment on above:Order Comment: Comment PSTResult Comment: Random Glucose Reference Range is dependent on time and content of last meal. Glucose of more than 200 mg/dL in a nonstressed, ambulatory subject supports the diagnosis of Diabetes Mellitus. ADA recommended reference rangePerformed By: #### PTH, BMP, [id number] ####[address] [address] [place] Potassium [Moles/Vol]4.8 mmol/LNormal3.5-5.1The [facility] Physician GroupComment on above:Order Comment: Comment PSTPerformed By: #### PTH, BMP, [id number] ####[address] [address] USASodium [Moles/Vol]142 mmol/JVmwblg003-722Hlo [facility] Physician GroupComment on above: Order Comment: Comment PSTPerformed By: #### PTH, BMP, [id number] ####[address] [address] USAUrea nitrogen [Mass/Vol]23 mg/dLNormal7-25The [facility] Physician GroupComment on above:Order Comment: Comment PSTPerformed By: #### PTH, BMP, [id number] ####[address] [place] [address] USABasophils Auto (Bld) [#/Vol] Ordered By: Conrad Mccullough on 68-16-2873Qqungtjwz (Bld) [#/Vol]Automated basophil count0.0-0.2FSelect Medical Cleveland Clinic Rehabilitation Hospital, AvonBasophils/100 WBC Auto (Bld)Ordered By: Conrad Mccullough on 64-52-5365Snzsqiykj/100 WBC (Bld)Automated basophil %.[facility] Medical CenterCBC W Auto Differential panel (Bld) on 48-81-3044Ivzlmqsnf (Bld) [#/Vol]0.1 10*3/uL0.0 - 0.2 10*3/uLNOMS Healthcare Basophils/100 WBC Manual cnt (Syn fld)0.9 %.NOMS HealthcareEosinophils (Bld) [#/Vol]0.7 10*3/uLHigh0.0 - 0.45 10*3/uLNOMS HealthcareEosinophils/100 WBC Manual cnt (Syn fld)9.2 %.[facility] HealthcareErythrocyte distribution width (RBC) [Ratio]14.2 %11.9 - 15.3 %NOMS HealthcareHematocrit (Bld) [Volume fraction]38.1 %34.0 - 46.4 %NOM HealthcareHemoglobin (Bld) [Mass/Vol]12.7 g/dL11.8 - 15.4 g/dLNONE HealthcareInterpretation and review of laboratory resultsAbnormalNONE HealthcareLymphocytes (Bld) [#/Vol]2.1 10*3/uL1.00 - 4.8 10*3/uLNOMS Healthcare Lymphocytes/100 WBC Manual cnt (Syn fld)25.6 %.[facility] springfieldMCH (RBC) [Entitic mass]32.4 pg24.7 - 34.3 pgNOMercy Hospital JoplinMCHC (RBC) [Mass/Vol]33.4 g/dL32.0 - 35.0 g/dLI-70 Community HospitalV (RBC) [Entitic vol]97.2 fL80 - 100 fLNONE Healthcare Monocytes (Bld) [#/Vol]0.8 10*3/uL0.0 - 0.8 10*3/uLNOMS Healthcare Monocytes+Macrophages/100 WBC Manual cnt (Syn fld)9.4 %.[facility] Neutrophils (Bld) [#/Vol]4.4 10*3/uL1.8 - 7.7 10*3/uLNOMS Healthcare Neutrophils/100 WBC Manual cnt (Syn fld)54.9 %.NOMS HealthcareNRBC0.2 /100{WBC}0 - 0.5 /100{WBC}NOMS HealthcarePlatelet mean volume (Bld) [Entitic vol]8.3 fL6.3 - 10.7 fLNOMS HealthcarePlatelets (Bld) [#/Vol]243 10*3/uL150 - 450 10*3/uLNOMS HealthcareRBC LM.HPF (Urine sed) [#/Area]3.92 10*6/uL3.60 - 5.00 10*6/uLNOMS HealthcareWBC (Bld) [#/Vol]8.1 10*3/uL3.8 - 11.6 10*3/uLNOMS HealthcareWBC LM.HPF (Urine sed) [#/Area]8.1 10*3/uL3.8 - 11.6 10*3/uLNOMS HealthcareNOMS HealthcareCalcium [Mass/volume] in Serum or PlasmaOrdered By: Conrad Mccullough on 42-97-1674Lyvxzmn [Mass/Vol]Calcium [Mass/volume] in Serum or Plasma8.6-10.3 [facility] Medical CenterCarbon dioxide, total [Moles/volume] in Serum or PlasmaOrdered By: Conrad Mccullough on 67-11-1323CP1 [Moles/Vol]Carbon dioxide, total [Moles/volume] in Serum or Offtaw44.0-31.0[facility] Medical CenterChloride [Moles/volume] in Serum or PlasmaOrdered By: Conrad Mccullough on 32-14-2900Dykfpnne [Moles/Vol]Chloride [Moles/volume] in Serum or Gkwdqb32-242 [facility] CenterComplete Blood Count Auto Diffon 10-31-2024 Basophils (Bld) [#/Vol]0.1 10*3/uLNormal0.0-0.2The [facility] Comment on above:Result Comment: PERFORMED BY: [place] [address] PATHOLOGIST CHILD LIFE THERAPIST SCOTT GARCIA M.D.Performed By: #### CBC #### [place] [address] USABasophils/100 WBC (Bld)0.9 %Normal.The [facility] Physician GroupComment on above:Performed By: #### CBC #### [place] [address] USAEosinophils (Bld) [#/Vol]0.7 10*3/uLHigh0.0-0.45The [facility] Physician GroupComment on above:Performed By: #### CBC #### [place] [address] USAEosinophils/100 WBC (Bld)9.2 %Normal.The [facility] Physician GroupComment on above:Performed By: #### CBC #### [place] [address] USAErythrocyte distribution width (RBC) [Ratio]14.2 %Normal 11.9-15.3The [facility] Physician GroupComment on above:Performed By: #### CBC #### [place] [address] USAHematocrit (Bld) [Volume fraction]38.1 %Yyrmzu57.0-46.4The [facility] Physician GroupComment on above:Performed By: #### CBC #### [place] [address] USAHemoglobin (Bld) [Mass/Vol]12.7 g/aXNeyage61.8-15.4The [facility] Physician GroupComment on above:Performed By: #### CBC #### [place] [address] USALymphocytes (Bld) [#/Vol]2.1 10*3/uLNormal1.00-4.8The [facility] Physician GroupComment on above:Performed By: #### CBC #### [place] [address] USALymphocytes/100 WBC (Bld)25.6 %Normal.The [facility] Physician GroupComment on above:Performed By: #### CBC #### [place] [address] USAH (RBC) [Entitic mass]32.4 zxZvehis98.7-34.3The [facility] Physician GroupComment on above:Performed By: #### CBC #### [place] [address] USAMCV (RBC) [Entitic vol]97.2 jMJxjuqz99-910Rum [facility] Physician GroupComment on above:Performed By: #### CBC #### [place] [address] USAMean Corpuscular HGB Conc33.4 g/oJQgrxom27.0-35.0The [facility] Physician GroupComment on above:Performed By: #### CBC #### [place] [address] USAMonocytes (Bld) [#/Vol]0.8 10*3/uLNormal0.0-0.8The [facility] Physician GroupComment on above:Performed By: #### CBC #### [place] [address] USAMonocytes/100 WBC (Bld)9.4 %Normal.The [facility] Physician GroupComment on above:Performed By: #### CBC #### [place] [address] USANeutrophils (Bld) [#/Vol]4.4 10*3/uLNormal1.8-7.7The [facility] Physician GroupComment on above:Performed By: #### CBC #### [place] [address] USANeutrophils/100 WBC (Bld)54.9 %Normal.The [facility] Physician GroupComment on above:Performed By: #### CBC #### [place] [address] USANRBC%0.2 /100{WBC}Normal0-0.5The [facility] Comment on above:Performed By: #### CBC #### [facility] [address] [place] [address] USAPlatelet mean volume (Bld) [Entitic vol]8.3 fLNormal 6.3-10.7The [facility] Physician GroupComment on above:Performed By: #### CBC #### [facility] [address] [place] [address] USAPlatelets (Bld) [#/Vol]243 10*3/sCGcyuyp684-973Fbg [facility]ician GroupComment on above:Performed By: #### CBC #### [facility] [address] [place] [address] USARBC (Bld) [#/Vol]3.92 10*6/uLNormal3.60-5.00The [facility] Physician GroupComment on above:Performed By: #### CBC #### [facility] [address] [place] [address] USAWBC (Bld) [#/Vol]8.1 10*3/uLNormal3.8-11.6The [facility] Physician GroupComment on above:Performed By: #### CBC #### [place] [address] USACreatinine [Mass/volume] in Serum or PlasmaOrdered By: Conrad Mccullough on 82-02-6797Akleoppzys [Mass/Vol]Creatinine [Mass/volume] in Serum or PlasmaHigh0.60-1.20[facility] Medical CenterECG 12 lead ECGon 83-45-2894ABJ 12 lead ECGCLEVELAND [facility]IN[facility] [place] [address] [place] [address] Electrocardiograph Report Signed Patient: Nola Waller MR#: [id number] : 1960 Acct:[id number] Age/Sex: 63 / F ADM Date: 10/31/24 Loc: Room: Type: [facility] Attending Dr: Conrad Mccullough DO Ordering Provider: Conrad Mccullough DO Date of Service: 10/31/24 ECG/ECG 12 lead ECG: dorian 6-2 Copies to: Test Reason : Blood Pressure : */* mmHG Vent. Rate : 73 BPM Atrial Rate : 73 BPM P-R Int : 200 ms QRS Dur : 112 ms QT Int : 418 ms P-R-T Axes : 71 66 51 degrees QTcB Int : 460 ms Normal sinus rhythm Incomplete right bundle branch block Borderline ECG No previous ECGs available Confirmed by Jonn Sapp ([id number]) on 11/01/2024 7:07:01 PM Referred By: Electronically Signed By: Jonn Sapp Transcribed By: MUS Signed By Jonn Sapp MD 11/01/24 [facility] Physician GroupEosinophils Auto (Bld) [#/Vol] Ordered By: Conrad Mccullough on 68-18-3929Perdhzsskyl (Bld) [#/Vol]Automated eosinophil countHigh0.0-0.45[facility] Medical CenterEosinophils/100 WBC Auto (Bld)Ordered By: Conrad Mccullough on 77-63-3849Wiiobpponad/100 WBC (Bld) Automated eosinophil %.[facility] Medical CenterErythrocyte distribution width Auto (RBC) [Ratio]Ordered By: Conrad Mccullough on 50-30-8410Eigrtdkdmgl distribution width (RBC) [Ratio]Erythrocyte distribution width [Ratio] by Automated count11.9-15.3FSelect Medical Cleveland Clinic Rehabilitation Hospital, AvonGlucose [Mass/volume] in Serum or PlasmaOrdered By: Conrad Mccullough on 45-79-1217Vftinys [Mass/Vol] Glucose [Mass/volume] in Serum or Edhwxh38-988AdhxbqohoFairfield Medical Center Comment on above:ADA recommended reference rangeRandom Glucose Reference Range is dependent on time and content of last meal. Glucose of more than 200 mg/dL in a nonstressed, ambulatory subject supports the diagnosisof Diabetes Mellitus. Hematocrit Auto (Bld) [Volume fraction]Ordered By: Conrad Mccullough on 10-31-2024 Hematocrit (Bld) [Volume fraction]Hematocrit [Volume Fraction] of Blood by Automated count34.0-46.4FSelect Medical Cleveland Clinic Rehabilitation Hospital, AvonHemoglobin [Mass/volume] in BloodOrdered By: Conrad Mccullough on 52-18-6962Hcxoutzrac (Bld) [Mass/Vol]Hemoglobin [Mass/volume] in Blood11.8-15.4FSelect Medical Cleveland Clinic Rehabilitation Hospital, AvonLeukocytes [#/volume] corrected for nucleated erythrocytes in Blood by Automated counOrdered By: Conrad Mccullough on 16-00-1687ASK corrected for nucl RBC Auto (Bld) [#/Vol]Leukocytes [#/volume] corrected for nucleated erythrocytes in Blood by Automated coun3.8-11.6FSelect Medical Cleveland Clinic Rehabilitation Hospital, AvonLymphocytes Auto (Bld) [#/Vol]Ordered By: Conrad Mccullough on 40-00-1618Gdgrrneeomt (Bld) [#/Vol]Lymphocytes [#/volume] in Blood by Automated count1.00-4.8[facility] CenterLymphocytes/100 WBC Auto (Bld)Ordered By: Conrad Mccullough on 98-21-5607Lwwhstvyrvg/100 WBC (Bld)Lymphocytes/100 leukocytes in Blood by Automated count.[facility] Medical CenterMCH Auto (RBC) [Entitic mass] Ordered By: Conrad Mccullough on 89-04-9605BAR (RBC) [Entitic mass]MCH [Entitic mass] by Automated count24.7-34.3FSelect Medical Cleveland Clinic Rehabilitation Hospital, AvonMCHC Auto (RBC) [Mass/Vol]Ordered By: Conrad Mccullough on 01-92-0172LGKR (RBC) [Mass/Vol] MCHC [Mass/volume] by Automated count32.0-35.0[facility] MCV Auto (RBC) [Entitic vol]Ordered By: Conrad Mccullough on 36-39-8583ZXG (RBC) [Entitic vol]MCV [Entitic volume] by Automated mrwiz44-832EgllyutajFairfield Medical CenterMonocytes Auto (Bld) [#/Vol]Ordered By: Conrad Mccullough on 37-80-4665Nhudkwuzx (Bld) [#/Vol]Automated blood monocyte count0.0-0.8[facility] CenterMonocytes/100 WBC Auto (Bld)Ordered By: Conrad Mccullough on 25-32-2524Teidseatr/100 WBC (Bld)Automated monocyte %.[facility] Medical CenterNeutrophils Auto (Bld) [#/Vol]Ordered By: Conrad Mccullough on 74-63-7075Agjqgcgpjnf (Bld) [#/Vol]Neutrophils [#/volume] in Blood by Automated count1.8-7.7FSelect Medical Cleveland Clinic Rehabilitation Hospital, AvonNeutrophils/100 WBC Auto (Bld) Ordered By: Conrad Mccullough on 51-35-1966Ixxxpisdgfp/100 WBC (Bld)Automated neutrophil %.[facility] CenterNo Panel InformationOrdered By: Conrad Mccullough on 47-22-8641Bnvyisyug GFR (CKD-EPI)40.280 mL/MinFairfield Medical CenterPharmacy Creatinine Clearance (ChemN/AFSelect Medical Cleveland Clinic Rehabilitation Hospital, AvonNucleated erythrocytes [Presence] in Blood by Automated count Ordered By: Conrad Mccullough on 71-77-9580Ttjvogoff RBC Auto Ql (Bld)Nucleated erythrocytes [Presence] in Blood by Automated count0-0.5FSelect Medical Cleveland Clinic Rehabilitation Hospital, AvonParathyrin.intact [Mass/Vol]on 36-50-3582Onddtlhcocbbzi and review of laboratory resultsAbnormSuburban Community HospitalPARATHYROID HORMONE NTGSAE40.7 pg/lPCdwd87 - 88 pg/mLNOMS HealthcareComment PSTSelect Medical Specialty [facility] Parathyrin.intact [Mass/volume] in Serum or PlasmaOrdered By: Conrad Mccullough on 26-78-6531Mcsqpybruj.intact [Mass/Vol]Parathyrin.intact [Mass/volume] in Serum or FdqkogWegp60-90ItlyicjcaFairfield Medical CenterParathyroid Hormone Intacton 58-56-4356Hvaljbolbjk Hormone Ibcwmc12.7 pg/sUAjhq19-90Prj [facility] Physician GroupComment on above:Order Comment: Comment PSTResult Comment: PERFORMED BY: [facility] [address] [place] [address] PATHOLOGIST CHILD LIFE THERAPIST SCOTT GARCIA M.D.Performed By: #### PTH, BMP, [id number] #### [place] [address] USAPlatelet mean volume Auto (Bld) [Entitic vol]Ordered By: Conrad Mccullough on 68-69-9433Eoxtdbgp mean volume (Bld) [Entitic vol]Platelet mean volume [Entitic volume] in Blood by Automated count6.3-10.7FSelect Medical Cleveland Clinic Rehabilitation Hospital, AvonPlatelets Auto (Bld) [#/Vol]Ordered By: Conrad Mccullough on 33-55-1217Pdoklcpug (Bld) [#/Vol]Platelets [#/volume] in Blood by Automated dbnuk227-642KrgrcefkaFairfield Medical CenterPotassium [Moles/volume] in Serum or PlasmaOrdered By: Conrad Mccullough on 11-00-7295Dmblgfxmr [Moles/Vol]Potassium [Moles/volume] in Serum or Plasma3.5-5.1FSelect Medical Cleveland Clinic Rehabilitation Hospital, AvonRBC Auto (Bld) [#/Vol]Ordered By: Conrad Mccullough on 94-56-4897VMO (Bld) [#/Vol] Erythrocytes [#/volume] in Blood by Automated count3.60-5.00Martins Ferry Hospitalerum or plasma anion gap determinationOrdered By: Conrad Mccullough on 78-64-5673Ugjqi gap [Moles/Vol]Serum or plasma anion gap determination 6.0-15.0Martins Ferry Hospitalodium [Moles/volume] in Serum or PlasmaOrdered By: Conrad Mccullough on 96-18-3135Aurqjg [Moles/Vol]Sodium [Moles/volume] in Serum or Ehcinc160-323KfntsygvxFairfield Medical CenterUrea nitrogen [Mass/volume] in Serum or PlasmaOrdered By: Conrad Mccullough on 08-47-9552Mhbi nitrogen [Mass/Vol]Urea nitrogen [Mass/volume] in Serum or Plasma 7-25Fairfield Medical CenterVitamin D 25 Hydroxy Totalon 10-31-2024 Vitamin D 25 Hydroxy Total23.5 ng/mIZik38-717Vmt [facility] Comment on above:Order Comment: Comment PSTResult Comment: VITAMIN D STATUS 25(OH)VITAMIN D RANGE (ng/mL) Deficient <20 Insufficient 20 to <30 Sufficient 30 to 100 Reference: Monty MF,Hilda NC, Mariajose MARY, et al. Evaluation,treatment, and prevention of vitamin D deficiency; an Endocrine Society clinical practice guideline. JCEM. 2010; 96(7):1911-30. PERFORMED BY: [address] [place] [address] PATHOLOGIST CHILD LIFE THERAPIST SCOTT GARCIA M.D.Performed By: #### PTH, BMP, [id number] ####[facility] Ehu[address]275 [address] Edwards StreetVitamin D+Metabolites [Mass/volume] in Serum or PlasmaOrdered By: Conrad Mccullough on 10-31-2024 Vitamin D+Metabolites [Mass/Vol]Vitamin D+Metabolites [Mass/volume] in Serum or JcjdhiLtr13-872TingzqvutFairfield Medical CenterComment on above:VITAMIN D STATUS 25(OH)VITAMIN D RANGE (ng/mL) Deficient <20 Insufficient 20 to <75Hedyoodjaw29 to 100Reference: Monty MF,Hilda NC, Mariajose MARY, et al. Evaluation,treatment, and prevention of vitamin D deficiency; an Endocrine Society clinical practice guideline. JCEM. 2010; 96(7):1911-30.WBC Auto (Bld) [#/Vol]Ordered By: Conrad Mccullough on 76-04-2255NMD (Bld) [#/Vol] Leukocytes [#/volume] in Blood by Automated count3.8-11.6FSelect Medical Cleveland Clinic Rehabilitation Hospital, AvonCT neck 4D parathyroidon 03-53-1962WA neck 4D parathyroidC[facility]AND [facility] [place] [address] CT Scan Report Signed Patient: Nola Waller MR#: [id number] : 1960 Acct:[id number] Age/Sex: 63 / F ADM Date: 10/12/24 Loc: CT Room: Type: [facility] Attending Dr: Conrad Mccullough DO Copies to: Conrad Mccullough DO Ordering Provider: Conrad Mccullough DO Date of Service: 10/12/24 CT/CT neck 4D parathyroid: Hyperparathyroidism /Hypercalcemia 4D CT soft tissue neck performed without and with contrast INDICATION: Hyperparathyroidism, hypercalcemia COMPARISON:: Parathyroid nuclear medicine scan 10/12/2024 TECHNIQUE: Spiral images were obtained through the soft tissues of the neck without and with administration of intravenous contrast per 4D parathyroid protocol. This CT exam was performed using one or more following dose reduction techniques: Automated exposure control, adjustment of the mA and/or kV according to patient size, or use of iterative reconstruction technique. FINDINGS: Heterogeneous appearance of thyroid gland. Nonenlarged thyroid gland. Candidate lesion image 79, near the tracheoesophageal groove posterior medial to the left thyroid lobe demonstrates low attenuation on noncontrast images and demonstrates arterial phase enhancement and rapid washout. This measures 5.7 mm in size. No additional candidate lesions identified. Bovine arch. Oropharyngeal, pericolonic epiglottic tissues unremarkable. Trachea is unremarkable. Nasopharyngeal soft tissues unremarkable. Submandibular glands unremarkable. No pathologic adenopathy. Lung apices clear. Degenerative changes of the cervical spine spine. CT/CT neck 4D parathyroid IMPRESSION: 8 mm candidate lesion near the tracheal esophageal groove posterior medial to the left thyroid lobe. This demonstrates arterial phase enhancement with rapid washout Impression dictated by: Kyle Bhagat M.D. 10/12/2024 12:26 PM Dictation Location: [place] [address] Transcribed By: [facility] 10/12/24 1226 Dictated By: Kyle Bhagat MD 10/12/24 1211 Signed By: 10/12/24 [facility] Physician GroupNM*parathyroid SPECT*on 61-81-0117ZY*parathyroid SPECT*[facility] [address] [place] [address] [place] [address] Nuclear Medicine Report Signed Patient: Nola Waller MR#: [id number] : 1960 Acct:[id number] Age/Sex: 63 / F ADM Date: 10/12/24 Loc: [place] Room: Type: [facility] Attending Dr: Conrad Mccullough DO Copies to: DO Yves Sherman II, MD Ordering Provider: Conrad Mccullough DO Date of Service: 10/12/24 NM/NM*parathyroid SPECT*: Hypercalcemia /Hyperparathyroidism NM*parathyroid SPECT* 10/12/2024 9:09 AM SIGNS AND SYMPTOMS: Hypercalcemia /Hyperparathyroidism PROTOCOL: Scintigraphic images of the neck were obtained at 15 minutes and 2 hours after intravenous radiotracer administration. SPECT images were obtained and reconstructed in axial, sagittal, coronal, and 3-D planes. COMPARISON: 10/12/2024 RADIOPHARMACEUTICAL: 24.0 mCi of intravenous technetium 99m sestamibi FINDINGS: There is symmetric radiotracer accumulation within the thyroid lobes as well as the salivary glands. There is a subtle focus of persistent radiotracer accumulation which is best seen on SPECT images posterior to the left thyroid lobe corresponding to the lesion seen on the soft tissue neck CT from the same date. This is suspicious for the presence of a parathyroid adenoma. NM/NM*parathyroid SPECT* IMPRESSION: There is a subtle focus of persistent radiotracer accumulation which is best seen on SPECT images posterior to the left thyroid lobe corresponding to the lesion seen on the soft tissue neck CT from the same date. This is suspicious for the presence of a parathyroid adenoma. Impression dictated by: Yves Maier M.D. 10/12/2024 3:07 PM Dictation Location: [place] [address] Transcribed By: [facility] 10/12/24 1507 Dictated By: Yves Maier II, MD 10/12/24 1456 Signed By: 10/12/24 1507[facility] Physician GroupDEXA BONE DENSITYon 10-10-2024 DEXA BONE DENSITYExamination: DEXA BONE DENSITY Clinical History: Hypercalcemia /Hyperparathyroidism Technique: Bone density study was performed. T score values for the lumbar spine, right femoral neck, left femoral neck, right forearm and left forearm were obtained. Comparison: None Findings: Value for the lumbar spine from L1-L4 is -0.1. Value for the right femoral neck is -2.0. Value for the left femoral neck is -2.1. Value for the right forearm is -2.4. Value for the left forearm is -2.2. Findings are compatible with severe osteopenia with moderate to high increased fracture risk. No evidence of osteoporosis. IMPRESSION: Impression: Findings compatible with severe osteopenia with moderate to high increased fracture risk. ELECTRONICALLY SIGNED BY: Salo Pederson M.D.NormalNot AvailableEstimated glomerular filtration rate (GFR) non- Americanon 32-48-5387FYA/1.73 sq M.predicted among non-blacks MDRD (S/P/Bld) [Vol rate/Area]Estimated glomerular filtration rate (GFR) non- AmericanLow>=60 mL/min/1.73m 2FSelect Medical Cleveland Clinic Rehabilitation Hospital, AvonLaboratory - Chemistry and Chemistry - challengeon 50-19-9494Obdduku [Mass/Vol]3.8 g/dL3.4-5.0[facility] Calcium [Mass/Vol]10.1 mg/dL8.5-10.1FSelect Medical Cleveland Clinic Rehabilitation Hospital, AvonChloride [Moles/Vol]108 mmol/ICthm04-223LcbwypedyFairfield Medical CenterCO2 [Moles/Vol] 28.1 mmol/L21.0-32.0[facility] CenterCreatinine [Mass/Vol]1.58 mg/dLHigh0.55-1.02[facility] Medical CenterGFR/1.73 sq M.predicted MDRD (S/P/Bld) [Vol rate/Area]40 mL/min/{1.73_m2}Low>=60 mL/min/1.73m 2FSelect Medical Cleveland Clinic Rehabilitation Hospital, AvonGlucose [Mass/Vol]91 mg/cZ87-379MbglxbhdmFairfield Medical CenterPotassium [Moles/Vol]4.8 mmol/L3.5-5.1FUniversity Hospitals Lake West Medical Centerodium [Moles/Vol]141 mmol/X176-540VzfaypsqqFairfield Medical CenterUrea nitrogen [Mass/Vol]28.0 mg/dLHigh7.0-18.0[facility] CenterUrea nitrogen/Creatinine [Mass ratio]17.7 mg/mgFairfield Medical CenterNo Panel Informationon 53-49-3971Obewcnhrtj Level4.0 mg/dL2.6-4.7FUniversity Hospitals Lake West Medical Centererum or plasma anion gap determinationon 34-68-0459Mmlek gap [Moles/Vol]Serum or plasma anion gap determinationFairfield Medical CenterEstimated glomerular filtration rate (GFR) non- Americanon 45-50-0989QYI/1.73 sq M.predicted among non-blacks MDRD (S/P/Bld) [Vol rate/Area]Estimated glomerular filtration rate (GFR) non- AmericanLow>=60 mL/min/1.73m 2FSelect Medical Cleveland Clinic Rehabilitation Hospital, AvonLaboratory - Chemistry and Chemistry - challengeon 89-51-4059Ueyuypi [Mass/Vol]4.1 g/dL3.4-5.0[facility] CenterCalcium [Mass/Vol]10.2 mg/dLHigh8.5-10.1FSelect Medical Cleveland Clinic Rehabilitation Hospital, AvonChloride [Moles/Vol]107 mmol/U46-135EkrylwggfFairfield Medical CenterCO2 [Moles/Vol]27.1 mmol/L21.0-32.0[facility] CenterCreatinine [Mass/Vol]1.66 mg/dLHigh0.55-1.02[facility] CenterGFR/1.73 sq M.predicted MDRD (S/P/Bld) [Vol rate/Area]38 mL/min/{1.73_m2} Low>=60 mL/min/1.73m 2FSelect Medical Cleveland Clinic Rehabilitation Hospital, AvonGlucose [Mass/Vol]91 mg/mT99-527WisbdzverFairfield Medical CenterMagnesium [Mass/Vol]2.2 mg/dL1.8-2.4 [facility] CenterPotassium [Moles/Vol]4.4 mmol/L3.5-5.1FUniversity Hospitals Lake West Medical Centerodium [Moles/Vol]144 mmol/I149-960LwkupnwofFairfield Medical CenterUrea nitrogen [Mass/Vol]34.0 mg/dLHigh7.0-18.0[facility] CenterUrea nitrogen/Creatinine [Mass ratio]20.5 mg/mgFairfield Medical CenterNo Panel Informationon 193597-Jlfimre Vitamin D Total35.2 ng/mLFairfield Medical CenterComment on above:<20 ng/mL Vit D dsvlwqiuz86-<30 ng/mL Vit D enbzshvzkmih30-462 ng/mL Vit D sufficient>100 ng/mL Potential ToxicityMiscellaneous TestCOMMENT.[facility] Comment on above:Test Ordered: [id number] Ca+PTH IntactCalcium 10.4 [H ] mg/dL CB Reference Range: 8.7-10.3PTH, Intact 105 [H ] pg/mL CB Reference Range: 15- 65Intact PTH Comment CB Reference Range: .Interpretation IntactPTH Calcium (pg/mL) (mg/dL)Normal 15 - 65 8.6 - 10.2Primary Hyperparathyroidism >65 >10.2Secondary Hyperparathyroidism >65 <10.2Non-Parathyroid Hypercalcemia <65 >10.2Hypoparathyroidism <15 < 8.6Non-Parathyroid Hypocalcemia 15 - 65 < 8.6Performed at: - [facility] [address] [id number] Director: Giovany Akbar PhD, Phone: [phone] Level4.8 mg/dLHigh 2.6-4.7FUniversity Hospitals Lake West Medical Centererum or plasma anion gap determination on 20-82-1333Bnznj gap [Moles/Vol]Serum or plasma anion gap determination [facility] CenterNo Panel Informationon 43-84-3852Dvwlemd Level 0.9 mmol/L0.5-1.2FSelect Medical Cleveland Clinic Rehabilitation Hospital, AvonComment on above:A concentration of 0.5-0.8 mmol/L is advised for long-termuse; concentrations of up to 1.2 mmol/L may be necessaryduring acute treatment. Detection Limit = 0.1 <0.1 indicates None DetectedPerformed at: [facility] [id number] Director: Giovany Akbar PhD, Phone: [phone] Erythrocyte distribution width Auto (RBC) [Ratio]on 28-57-5861Bpvxpxhbqus distribution width (RBC) [Ratio]13.3 %11.0-15.0[facility] Estimated glomerular filtration rate (GFR) non- Americanon 03-24-2024 GFR/1.73 sq M.predicted among non-blacks MDRD (S/P/Bld) [Vol rate/Area]32 mL/min/{1.73_m2}Low>=60 mL/min/1.73m 2FSelect Medical Cleveland Clinic Rehabilitation [facility], [facility]on Hematocrit Auto (Bld) [Volume fraction]on 57-39-8571Grtruknnqr (Bld) [Volume fraction]39.7 %36.0-48.0[facility] Medical CenterHemoglobin [Mass/volume] in Bloodon 29-31-9687Xxkfzslcyw (Bld) [Mass/Vol]12.7 g/dL12.0-16.0 [facility] CenterLaboratory - Chemistry and Chemistry - challengeon 61-60-0878Flmsqrp [Mass/Vol]3.5 g/dL3.4-5.0[facility] CenterCalcium [Mass/Vol]10.2 mg/dLHigh8.5-10.1FSelect Medical Cleveland Clinic Rehabilitation Hospital, AvonChloride [Moles/Vol]111 mmol/LYeoh60-293EtxrtewzaFairfield Medical Center CO2 [Moles/Vol]28.1 mmol/L21.0-32.0[facility] CenterCreatinine [Mass/Vol]1.62 mg/dLHigh0.55-1.02[facility] CenterGFR/1.73 sq M.predicted MDRD (S/P/Bld) [Vol rate/Area]39 mL/min/{1.73_m2}Low>=60 mL/min/1.73m 2FSelect Medical Cleveland Clinic Rehabilitation Hospital, AvonGlucose [Mass/Vol]93 mg/wI96-053 [facility] CenterMagnesium [Mass/Vol]2.3 mg/dL1.8-2.4FSelect Medical Cleveland Clinic Rehabilitation Hospital, AvonPotassium [Moles/Vol]4.2 mmol/L3.5-5.1FUniversity Hospitals Lake West Medical Centerodium [Moles/Vol]148 mmol/HQaaj349-842YgzltfznmFairfield Medical CenterUrate [Mass/Vol]6.4 mg/dLHigh2.6-6.0[facility] CenterUrea nitrogen [Mass/Vol]23.0 mg/dLHigh7.0-18.0[facility] CenterUrea nitrogen/Creatinine [Mass ratio]14.2 mg/mgFairfield Medical Center Bilirubin Ql (U)NegativeNEGCleveland Clinic Mercy HospitalGlucose (U) [Mass/Vol]NegativeNEGATIVEFairfield Medical CenterKetones Ql (U) NegativeNEGCleveland Clinic Mercy HospitalpH (U)6.0 [pH]5.0-9.0[facility] Ferry Hospitalpecific gravity (U) [Rel density]<=1.005Abnormal 1.005-1.025Fairfield Medical CenterUrobilinogen Qn (U)0.2 {Destiny'U}/dL0.2-1.0[facility] CenterLaboratory - Specimen informationon 00-46-4562Puqemqbzvb (U)CLEARCLEARFSelect Medical Cleveland Clinic Rehabilitation Hospital, AvonColor (U)LT. YELLOWYELLOWFairfield Medical CenterLaboratory - Urinalysison 89-33-7932Rthortfjd esterase Test strip Ql (U)SMALLAbnormalNEGATIVE [facility] CenterMucus Ql (Urine sed)NONE SEENNONE SEENUniversity Hospitals Cleveland Medical Center Medical CenterNitrite Ql (U)NegativeNEGATIVEFairfield Medical CenterProtein Ql (U)NegativeNEG/TRACEFairfield Medical CenterLeukocytes [#/volume] corrected for nucleated erythrocytes in Blood by Automated counon 61-94-7142GXD corrected for nucl RBC Auto (Bld) [#/Vol]7.4 10 3/uL4.0-11.0 [facility] HospitalH Auto (RBC) [Entitic mass]on 86-13-9277QDB (RBC) [Entitic mass]32.3 pg26.7-34.0[facility] Medical CenterMCHC Auto (RBC) [Mass/Vol]on 60-82-4678GPJG (RBC) [Mass/Vol]32.0 g/dL29.9-35.2FProMedica Defiance Regional HospitalV Auto (RBC) [Entitic vol]on 19-17-8774TKN (RBC) [Entitic vol]101.0 rDUxme31.0-99.0[facility] CenterNo Panel Informationon 571649-Wfmtxur Vitamin D Total30.0 ng/mLFairfield Medical CenterComment on above:<20 ng/mL Vit D ayayslqbb43-<30 ng/mL Vit D vphthuzxlugu50-802 ng/mL Vit D sufficient>100 ng/mL Potential Toxicity Parathyroid Hormone (Intact)69 pg/lLWdcapfji25-04VgjsfvrbgFairfield Medical CenterComment on above:Performed at: - [facility] [id number] Director: Giovany Akbar PhD, Phone: [phone] Phosphorus Level4.6 mg/dL2.6-4.7FSelect Medical Cleveland Clinic Rehabilitation Hospital, AvonUrine Bacteria TRACE #/HPFAbnormalNONE [facility] HospitalUrine Occult Blood NegativeNEGCleveland Clinic Mercy HospitalUrine Other CastsNONE SEEN #/LPFNONE [facility] HospitalUrine Other CrystalsNone Seen #/HPFNone [facility], BeachwoodUrine Random Thdiqwwsol92.98 mg/dL20.00-300.00[facility] Medical CenterUrine Random Total Protein<6.0 mg/dL<=11.9[facility] Medical CenterUrine RBC0-2 #/HPF0-2FSelect Medical Cleveland Clinic Rehabilitation Hospital, AvonUrine Squamous Epithelial CellsRARE #/LPFNONE/RARE [facility] CenterUrine WBC5-10 #/HPFAbnormalNONE SEENFairfield Medical CenterPlatelet mean volume Auto (Bld) [Entitic vol]on 51-96-5651Rdwvjhak mean volume (Bld) [Entitic vol]9.8 fL9.5-13.5FSelect Medical Cleveland Clinic Rehabilitation Hospital, AvonPlatelets Auto (Bld) [#/Vol]on 46-37-7667Vqyrwonzn (Bld) [#/Vol]241 10 3/yC154-106YaqssuggyFairfield Medical CenterRBC Auto (Bld) [#/Vol] on 20-89-7999DHT (Bld) [#/Vol]3.93 10 6/uLLow4.20-5.40Martins Ferry Hospitalerum or plasma anion gap determinationon 56-96-4504Supdv gap [Moles/Vol] 13.1 mmol/LFSelect Medical Cleveland Clinic Rehabilitation Hospital, AvonUrine protein/creatinine ratioon 69-80-1177Jnnguba/Creatinine (U) [Ratio]0.18FSelect Medical Cleveland Clinic Rehabilitation Hospital, AvonNo Panel Informationon 01-39-5028Qrecxti Level0.8 mmol/L0.5-1.2FSelect Medical Cleveland Clinic Rehabilitation Hospital, AvonComment on above:A concentration of 0.5-0.8 mmol/L is advised for long-termuse; concentrations of up to 1.2 mmol/L may be necessaryduring acute treatment. Detection Limit = 0.1 <0.1 indicates None DetectedPerformed at: [facility] [id number] Director: Giovany Akbar PhD, Phone: [phone] Wrist - right 2 Viewson 80-70-3024Zpvqmia Result: January 29 and 2023 x-rays AP and lateral of the right wrist demonstrate a fracture of the distal radius. Which is healed with reversal volar tilt. There are no new fractures identified. Impression: Healed distal radius fracture right wrist Khang Valentin D.O.[facility]XR Wrist - right 2 ViewsOrdered By: Steve Valentin on 80-10-6322[facility] Work Phone: XR Wrist - right 2 Viewson 67-42-5579Zehziecva Study observation (narrative)NOMS HealthcareXR WRIST RIGHT (MIN 3 VIEWS)on 10-08-2023 XR WRIST RIGHT (MIN 3 VIEWS)EXAMINATION: XRAY VIEWS OF THE RIGHT WRIST 10/08/2023 [...] Signed by: Channing Jasso MD 10/08/23 Final resultNormalMercy Multicare Deaconess HospitalXR Wrist - right 3 Viewson 10-08-2023 Nondisplaced fracture of the distal radius. Fracture of the ulna styloid. [facility] CONSOLIDATEDEXAMINATION: XRAY VIEWS OF THE RIGHT WRIST 10/08/2023 [...] spaces appear well maintained. Soft tissue swelling. [facility] Channing Lyles MD - 10/08/2023 EXAMINATION: XRAY VIEWS OF [...] radius. Fracture of the ulna styloid. [facility]OS[facility]ITALRadiology Study observation (narrative)[facility] Qoniac [facility]OSPITALXR Wrist - right 3 ViewsOrdered By: Channing Jasso on 52-85-4088HZD [facility] TEHACHAPISouthwest [employer] Work Phone: Estimated glomerular filtration rate (GFR) non- Americanon 22-36-2415NQG/1.73 sq M.predicted among non-blacks MDRD (S/P/Bld) [Vol rate/Area]39 mL/min/{1.73_m2}>=60[facility] Laboratory - Chemistry and Chemistry - challengeon 98-21-8297Gvtkqfd [Mass/Vol] 3.6 g/dL3.4-5.0[facility] CenterCalcium [Mass/Vol]9.6 mg/dL 8.5-10.1FSelect Medical Cleveland Clinic Rehabilitation Hospital, AvonChloride [Moles/Vol]107 mmol/L98-107 [facility] CenterCO2 [Moles/Vol]28.7 mmol/L21.0-32.0[facility] CenterCreatinine [Mass/Vol]1.37 mg/dL0.55-1.02[facility] CenterGFR/1.73 sq M.predicted MDRD (S/P/Bld) [Vol rate/Area]47 mL/min/{1.73_m2}>=60[facility] CenterGlucose [Mass/Vol]92 mg/dL 74-106[facility] CenterPotassium [Moles/Vol]4.2 mmol/L3.5-5.1 [facility] Hospitalodium [Moles/Vol]142 mmol/H376-100KirrxfwtiFairfield Medical CenterUrea nitrogen [Mass/Vol]26.0 mg/dL7.0-18.0[facility] CenterUrea nitrogen/Creatinine [Mass ratio]19.0 mg/mgFairfield Medical CenterNo Panel Informationon 34-47-981625570513-Mifukgr Vitamin D Total32.2 ng/mLFairfield Medical CenterComment on above:<20 ng/mL Vit D tssnuqxoq72-<30 ng/mL Vit D eukgbovcyehe69-767 ng/mL Vit D sufficient>100 ng/mL Potential ToxicityMiscellaneous TestCOMMENT.[facility] Comment on above:Test Ordered: [id number] Ca+PTH IntactCalcium 10.0 mg/dL CB Reference Range: 8.7-10.3PTH, Intact 62 pg/mL CB Reference Range: 15-65Intact PTH Comment CB Reference Range: .Interpretation Intact PTH Calcium (pg/mL) (mg/dL)Normal 15 - 65 8.6 - 10.2Primary Hyperparathyroidism >65 >10.2Secondary Hyperparathyroidism >65 <10.2Non-Parathyroid Hypercalcemia <65 >10.2Hypoparathyroidism <15< 8.6Non-Parathyroid Hypocalcemia 15 - 65 < 8.6Performed at: - [facility] [address] [id number] Director: Giovany Akbar PhD, Phone: [phone] Level4.1 mg/dL 2.6-4.7FUniversity Hospitals Lake West Medical Centererum or plasma anion gap determination on 55-24-2222Csrbu gap [Moles/Vol]10.5 mmol/LFSelect Medical [facility], [place] LITHIUMon 88-87-5439Pzyzdos (Eskalith(R)), Serum1.2 mmol/LNormal0.5-1.2The [facility] HospitalComment on above:Result Comment: A concentration of 0.5-0.8 mmol/L is advised for long-term use; concentrations of up to 1.2 mmol/L may be necessary during acute treatment. Detection Limit = 0.1 <0.1 indicates None DetectedPerformed By: #### LITHIUM #### [facility] [address] [place] [address] Dr. Emanuel DegrootRENAL FUNCTION PANELon 33-55-2957Nkydyoc [Mass/Vol]3.7 g/dLNormal 3.4-5.0The [facility] HospitalComment on above:Performed By: #### RENAL #### [facility] [address] [address] [address] Emanuel DegrootCalcium [Mass/Vol]9.5 mg/dLNormal8.5-10.1[facility] Comment on above:Performed By: #### RENAL #### [facility] [address] [address] [address] Emanuel DegrootChloride [Moles/Vol]106 mmol/ANbvlyi05-551Vto [facility] Comment on above:Performed By: #### RENAL #### [facility] [address] [address] [address] Emanuel DegrootCO2 [Moles/Vol]29.2 mmol/KVrniuh65.0-32.0[facility] Comment on above:Performed By: #### RENAL #### [facility] [address] [address] [address] Emanuel DegrootCreatinine [Mass/Vol]1.30 mg/dLCritically high0.55-1.02The [facility] HospitalComment on above:Performed By: #### RENAL #### [facility] [address] [place] [address] Dr. Castellanos ChangEGFR-AF TRFFCEKD80 mL/min/1.96k0Sgeymugvyf low>=60The [facility] HospitalComment on above:Performed By: #### RENAL #### [facility] [address] [place] [address] Dr. Castellanos ChangEGFR-NON AF DPYGOAAF36 mL/min/1.45r5Bivjmfyhsx low>=60The [facility] HospitalComment on above:Performed By: #### RENAL #### [facility] [address] [place] [address] Dr. Emanuel DegrootGlucose [Mass/Vol]96 mg/fEEnrdkk74-789Epz [facility] Comment on above:Performed By: #### RENAL #### [facility] [address] [place] [address] Dr. Emanuel DegrootPhosphate [Mass/Vol]4.1 mg/dLNormal2.6-4.7[facility] Comment on above:Performed By: #### RENAL #### [facility] [address] [address] [address] Emanuel DegrootPotassium [Moles/Vol]4.0 mmol/LNormal3.5-5.1[facility] Comment on above:Performed By: #### RENAL #### [facility] [address] [address] [address] Emanuel DegrootSodium [Moles/Vol]140 mmol/FHyalhi455-100Joy [facility] Comment on above:Performed By: #### RENAL #### [facility] [address] [address] [address] Emanuel DegrootUrea nitrogen [Mass/Vol]18.0 mg/dLNormal7.0-18.0The [facility] HospitalComment on above:Performed By: #### RENAL #### [facility] [address] [address] [address] Emanuel DegrootMG MAMM SCREEN TERRA W CADon 71-44-4940AH MAMM SCREEN TERRA W CAD Patient: NOLA WALLER Exam Date: 04/08/2022 : 1960 Gender:F Ordering : DR SANTA AUGUSTIN M.D. Admission #: [id number] Family : Order #: [id number] CLICK HERE TO VIEW EXAM RADIOLOGY REPORT [...] colon cancer at age 55. LOCATION: [facility] BREAST COMPOSITION: Scattered areas fibroglandular density. [...] by: Denton Delgado MD on 04/08/2022 at 13:40[facility] HospitalUS EXT NON VASC LIMITED RTon 30-05-1635XL EXT NON VASC LIMITED RTEXAMINATION: US EXT NON VASC LIMITED RT HISTORY: [...] Electronically authenticated by: DENTON DELGADO Date: 2022-04-08 18:20[facility] HospitalAlbumin [Mass/volume] in Serum or PlasmaOrdered By: Horacio Kim on 40-39-2519Csnrocz [Mass/Vol]3.3 g/dL3.2-5.5FSelect Medical Cleveland Clinic Rehabilitation Hospital, AvonCreatinine and Glomerular filtration rate.predicted panel (S/P/Bld)Ordered By: Horacio Kim on 09-32-7710Kysetzwgli [Mass/Vol] 1.26 mg/dL0.44-1.03[facility] CenterEstimated glomerular filtration rate (GFR) non- AmericanOrdered By: Horacio Kim on 67-74-8559NVP/1.73 sq M.predicted among non-blacks MDRD (S/P/Bld) [Vol rate/Area]43 mL/MinFairfield Medical CenterGlobulin Calc (S) [Mass/Vol] Ordered By: Horacio Kim on 51-70-5264Wgunzwyg (S) [Mass/Vol]2.6 g/dL [facility] CenterNo Panel InformationOrdered By: Horacio Kim on 21-58-4130Zksxfcwqe GFR ()52 mL/MinFairfield Medical CenterComment on above:GFR estimated reference range: According to KDOQI guidelines, <60 ml/min/1.73m2 is sufficient todiagnose a patient with chronic kidney disease.Pharmacy Creatinine Clearance (Chem44.02[facility] CenterProtein [Mass/volume] in Serum or PlasmaOrdered By: Horacio Kim on 12-99-9294Tuiynjt [Mass/Vol]5.9 g/dL6.1-7.9[facility]erry Hospitalerum or plasma alanine aminotransferase measurement without P-5'-P (enzymatic activiOrdered By: Horacio Kim on 03-19-2022 ALT No additional P-5'-P [Catalytic activity/Vol]22 U/Q90-23BcnhnqzynMartins Ferry Hospitalerum or plasma albumin/globulin mass ratioOrdered By: Horacio Kim on 53-03-7477Rqmfhku/Globulin [Mass ratio]1.3 {ratio}[facility] Hospitalerum or plasma alkaline phosphatase measurement (enzymatic activity/volume)Ordered By: Horacio Kim on 94-55-9804DEK [Catalytic activity/Vol]38 U/E77-88VvfrdqmzgMartins Ferry Hospitalerum or plasma anion gap determinationOrdered By: Horacio Kim on 03-19-2022 Anion gap [Moles/Vol]9.6 mmol/L6.0-15.0[facility] Hospitalerum or plasma aspartate aminotransferase measurement (enzymatic activity/volume) Ordered By: Horacio Kim on 40-14-4834SCR [Catalytic activity/Vol]19 U/N96-90JfylblpwvMartins Ferry Hospitalerum or plasma calcium measurement (mass/volume)Ordered By: Horacio Kim on 77-73-9948Vrbisym [Mass/Vol] 9.6 mg/dL8.2-10.2FUniversity Hospitals Lake West Medical Centererum or plasma chloride measurement (moles/volume)Ordered By: Horacio Kim on 03-19-2022 Chloride [Moles/Vol]110 mmol/U28-455BurvggvsbMartins Ferry Hospitalerum or plasma glucose measurement (mass/volume)Ordered By: Horacio Kim on 03-99-2483Azfkxcg [Mass/Vol]95 mg/hA38-615AzwmlyoriFairfield Medical Center Comment on above:ADA recommended reference rangeRandom Glucose Reference Range is dependent on time and content of last meal. Glucose of more than 200 mg/dL in a nonstressed, ambulatory subject supports the diagnosisof Diabetes Mellitus. Serum or plasma potassium measurement (moles/volume)Ordered By: Horacio Kim on 09-62-0564Xazsvamee [Moles/Vol]4.2 mmol/L3.5-5.1FUniversity Hospitals Lake West Medical Centererum or plasma sodium measurement (moles/volume)Ordered By: Horacio Kim on 78-81-9709Pydpoe [Moles/Vol]142 mmol/P815-583AavrwxndtMartins Ferry Hospitalerum or plasma total bilirubin measurement (mass/volume) Ordered By: Horacio Kim on 07-32-9434Atiidikbu [Mass/Vol]0.5 mg/dL 0.3-1.2FUniversity Hospitals Lake West Medical Centererum or plasma total carbon dioxide measurement (moles/volume)Ordered By: Horacio Kim on 40-54-4442VB9 [Moles/Vol]26.6 mmol/L22.0-30.0[facility] Hospitalerum or plasma urea nitrogen measurement (mass/volume)Ordered By: Horacio Kim on 42-07-3009Emrb nitrogen [Mass/Vol]28 mg/dL9-23[facility] Urine culture routineOrdered By: Ruby Penn on 87-25-6333Qkrjdcti identified Cx Nom (U)2 DaysFairfield Medical CenterGlucose Glucometer (BldC) [Mass/Vol]Ordered By: Marco A Zaman on 21-97-7901Jrglfps [Mass/Vol]120 mg/dLFairfield Medical CenterComment on above:Random Glucose Reference Range is dependent on time and content of last meal. Glucose of more than 200 mg/dL in a nonstressed, ambulatory subject supports the diagnosis of Diabetes Mellitus.Amphetamine Screen Ql (U)Ordered By: Ruby Penn on 03-11-2022 Amphetamines Ql (U)NegativeNegativeFairfield Medical CenterAutomated erythrocytes count in urine sediment (number/area)Ordered By: Ruby Penn on 89-41-3038XYF Auto (Urine sed) [#/Area]None seen [HPF]0-4[facility] CenterAutomated leukocytes count in urine sediment (number/area)Ordered By: Ruby Penn on 95-87-6307EKC Auto (Urine sed) [#/Area]10-19 [HPF]0-4 [facility] CenterBarbiturates [Presence] in UrineOrdered By: Ruby Penn on 16-73-8554Hijlrhdnzare Ql (U)NegativeNegLakeHealth TriPoint Medical CenterBasophils Auto (Bld) [#/Vol]Ordered By: Ruby Penn on 73-22-3025Dovaeruzo (Bld) [#/Vol]0.1 10*3/uL0.0-0.2FSelect Medical Cleveland Clinic Rehabilitation Hospital, AvonBasophils/100 WBC Auto (Bld)Ordered By: Ruby Penn on 03-11-2022 Basophils/100 WBC (Bld)0.8 %.[facility] Medical CenterBenzodiazepines [Presence] in UrineOrdered By: Ruby Penn on 88-89-3279Xcjlndrkgcjtzxk Ql (U)NegativeNegLakeHealth TriPoint Medical CenterBilirubin Test strip Ql (U) Ordered By: uRby Penn on 84-60-6710Tltklvtma Ql (U)NegativeNegative [facility] CenterBlood hemoglobin measurement (mass/volume) Ordered By: Ruby Penn on 86-18-1279Qtsogcahha (Bld) [Mass/Vol]13.5 g/dL 11.8-15.4FSelect Medical Cleveland Clinic Rehabilitation Hospital, AvonBlood leukocytes automated count (number/volume)Ordered By: Ruby Penn on 30-55-3347SSP (Bld) [#/Vol]10.1 10*3/uL4.5-11.0[facility] CenterBody fluid albumin measurement (mass/volume)Ordered By: Ruby Penn on 88-22-6744Feuenif (Body fld) [Mass/Vol]3.9 g/dL3.2-5.5FSelect Medical Cleveland Clinic Rehabilitation Hospital, AvonCOVID-19 SOFIAOrdered By: Ruby Penn on 84-99-6630FPCZ-CoV+SARS-CoV-2 (COVID-19) Ag IA.rapid Ql (Resp)NegativeNegLakeHealth TriPoint Medical CenterComment on above:This is a duplicate Merry SARS Antigen (MERARY) result to be used for statistical tracking purpose only.Cannabinoids [Presence] in Urine by Screen methodOrdered By: Ruby Penn on 67-16-6858Arlikzicigvv Screen Ql (U)NegativeNegativeFairfield Medical CenterComment on above:These are unconfirmed results and should not be used for legal purposes. Drug Cut-Off Concentration: AMPH 1000 ng/mL LAINA 200 ng/mL AYLEEN 200 ng/mL COCM 300 ng/mL OP 300 ng/mL PCP 25 ng/mL THC 20 ng/mLCholesterol [Mass/volume] in Serum or PlasmaOrdered By: Marco A Zaman on 09-58-8072Vavjmkkzwzp [Mass/Vol]208 mg/zK102-972BdeljsyvpFairfield Medical CenterComment on above:Chol less than 200 mg/dl low riskChol 201-239 mg/dl borderline riskChol 240 mg/dl and greater high riskCholesterol in LDL Calc [Mass/Vol]Ordered By: Marco A Zaman on 34-65-9298Kyfskkksado in LDL [Mass/Vol] 120 mg/dL0-100[facility] CenterComment on above:LDL ATP III CLASSIFICATIONLDL less than 100 mg/dL OptimalLDL 100-129 mg/dL Near or above mfyfwskUXL385-891 mg/dL Borderline highLDL 160-189 mg/dL HighLDL greater than 189 mg/dL Very highCholesterol in VLDL Calc [Mass/Vol]Ordered By: Marco A Zaman on 80-78-1332Nugztynbsyz in VLDL [Mass/Vol]30 mg/dLFairfield Medical CenterColor Auto (U)Ordered By: Ruby Penn on 58-57-4248Utmvp (U)Yellow YellowFairfield Medical CenterCreatinine and Glomerular filtration rate.predicted panel (S/P/Bld)Ordered By: Ruby Penn on 03-11-2022 Creatinine [Mass/Vol]1.49 mg/dL0.44-1.03[facility] Eosinophils Auto (Bld) [#/Vol]Ordered By: Ruby Penn on 03-11-2022 Eosinophils (Bld) [#/Vol]2.1 10*3/uL0.0-0.45[facility] Eosinophils/100 WBC Auto (Bld)Ordered By: Ruby Penn on 03-11-2022 Eosinophils/100 WBC (Bld)20.9 %.[facility] Medical CenterErythrocyte distribution width Auto (RBC) [Ratio]Ordered By: Ruby Penn on 03-11-2022 Erythrocyte distribution width (RBC) [Ratio]14.3 %11.9-15.3FSelect Medical Cleveland Clinic Rehabilitation Hospital, AvonEstimated glomerular filtration rate (GFR) non- Ordered By: Ruby Penn on 40-38-4225GZZ/1.73 sq M.predicted among non- blacks MDRD (S/P/Bld) [Vol rate/Area]35 mL/MinFairfield Medical Center Globulin Calc (S) [Mass/Vol]Ordered By: Ruby Penn on 90-06-7054Eiszttfi (S) [Mass/Vol]3.2 g/dLFairfield Medical CenterHCG ( test) IA.rapid Ql (U)Ordered By: Ruby Penn on 94-62-0747CLH ( test) Ql (U)NegativeFairfield Medical CenterHematocrit Auto (Bld) [Volume fraction]Ordered By: Ruby Penn on 96-16-1066Vlhcoaxhwk (Bld) [Volume fraction]40.8 %34.0-46.4FSelect Medical Cleveland Clinic Rehabilitation Hospital, AvonKetones Auto test strip (U) [Mass/Vol]Ordered By: Ruby Penn on 54-62-1352Qmrxnsb (U) [Mass/Vol] NegativeNegativeFairfield Medical CenterLaboratory - Drug toxicology Ordered By: Ruby Penn on 37-50-5813Jsazboh Ql (U)NegativeNegativeFairfield Medical CenterLaboratory - Hematology and Cell countsOrdered By: Ruby Penn on 90-19-0633Sjhurrthp RBC/100 WBC (Bld) [Ratio]0.1 %0-0.5 [facility] CenterLaboratory - UrinalysisOrdered By: Ruby Penn on 33-86-2150Jxqqdjd casts LM Ql (Urine sed)None seen [LPF]0-8[facility] Medical CenterLymphocytes Auto (Bld) [#/Vol]Ordered By: Ruby Penn on 40-49-6415Npglihtgywd (Bld) [#/Vol]3.2 10*3/uL1.00-4.8[facility] CenterLymphocytes/100 WBC Auto (Bld)Ordered By: Ruby Penn on 37-89-2279Cbfqlrdfcde/100 WBC (Bld)31.5 %.[facility] Medical CenterMCH Auto (RBC) [Entitic mass]Ordered By: Ruby Penn on 28-31-4380VAV (RBC) [Entitic mass]30.7 pg24.7-34.3FSelect Medical Cleveland Clinic Rehabilitation Hospital, AvonMCHC Auto (RBC) [Mass/Vol]Ordered By: Ruby Penn on 92-78-7901IYNB (RBC) [Mass/Vol]33.0 g/dL32.0-35.0[facility] CenterMCV Auto (RBC) [Entitic vol] Ordered By: Ruby Penn on 03-12-7268ILD (RBC) [Entitic vol]93.2 uL98-776 [facility] CenterMonocytes Auto (Bld) [#/Vol]Ordered By: Ruby Penn on 64-82-8014Vzfazawgl (Bld) [#/Vol]0.8 10*3/uL0.0-0.8[facility] CenterMonocytes/100 WBC Auto (Bld)Ordered By: Ruby Penn on 47-66-4153Ymelfbcak/100 WBC (Bld)8.2 %.[facility] Neutrophils Auto (Bld) [#/Vol]Ordered By: Ruby Penn on 03-11-2022 Neutrophils (Bld) [#/Vol]3.9 10*3/uL1.8-7.7FSelect Medical Cleveland Clinic Rehabilitation Hospital, [place] Neutrophils/100 WBC Auto (Bld)Ordered By: Ruby Penn on 03-11-2022 Neutrophils/100 WBC (Bld)38.6 %.[facility] Medical CenterNitrite Test strip Ql (U)Ordered By: Ruby Penn on 90-75-6844Jgothmw Ql (U)Negative NegativeFairfield Medical CenterNo Panel InformationOrdered By: Marco A Zaman on 63-02-268679236418-Wexjjdh Vitamin D Total34.7 ng/fD22-868EqtzkhqtoFairfield Medical CenterComment on above:VITAMIN D STATUS 25(OH)VITAMIN D RANGE (ng/mL) Deficient <20 Insufficient 20 to <68Lkfjnplkhw87 to 100Reference: Monty MF,Hilda NC, Mariajose MARY, et al. Evaluation,treatment, and prevention of vitamin D deficiency; an Endocrine Society clinical practice guideline. JCEM. 2010; 96(7):1911-30.No Panel InformationOrdered By: Ruby Penn on 78-24-3936Hxnzcqslx GFR ()43 mL/MinFairfield Medical CenterComment on above:GFR estimated reference range: According to KDOQI guidelines, <60 ml/min/1.73m2 is sufficient todiagnose a patient with chronic kidney disease.Pharmacy Creatinine Clearance (Chem37.23[facility] CenterPlatelet EstimateNormalNormThe [facility] Platelet Morphology CommentNormalSumma Health Barberton CampusARS Antigen (LFIA)[facility] CenterPhencyclidine Screen Ql (U) Ordered By: Ruby Penn on 03-83-0047Jdpfhrvdciqrq Ql (U)NegativeNegative [facility] CenterPlatelet mean volume Auto (Bld) [Entitic vol] Ordered By: Ruby Penn on 27-42-7815Iyuoyvly mean volume (Bld) [Entitic vol]8.8 fL6.3-10.7FSelect Medical Cleveland Clinic Rehabilitation Hospital, AvonPlatelets Auto (Bld) [#/Vol] Ordered By: Ruby Penn on 35-55-1812Hscpbezav (Bld) [#/Vol]287 10*3/uL 150-450[facility] CenterProtein Auto test strip (U) [Mass/Vol] Ordered By: Ruby Penn on 51-50-0521Wolbjim (U) [Mass/Vol]NegativeNegative [facility] CenterProtein [Mass/volume] in Serum or PlasmaOrdered By: Ruby Penn on 20-75-8985Kmyevmf [Mass/Vol]7.1 g/dL6.1-7.9[facility] CenterRB Auto (Bld) [#/Vol]Ordered By: Ruby Penn on 27-54-1359GLO (Bld) [#/Vol]4.38 10*6/uL3.60-5.00[facility] morphologyOrdered By: Ruby Penn on 99-43-3285GTD morphology finding Nom (Bld)NormalMartins Ferry Hospitalerum or plasma alanine aminotransferase measurement without P-5'-P (enzymatic activiOrdered By: Ruby Penn on 58-32-3293OFZ No additional P-5'-P [Catalytic activity/Vol]22 U/K48-51IexnuitbiMartins Ferry Hospitalerum or plasma albumin/globulin mass ratioOrdered By: Ruby Penn on 24-38-9409Turcdnd/Globulin [Mass ratio]1.2 {ratio}[facility] Hospitalerum or plasma alkaline phosphatase measurement (enzymatic activity/volume)Ordered By: Ruby Penn on 03-11-2022 ALP [Catalytic activity/Vol]45 U/X03-79QoemjgrpoMartins Ferry Hospitalerum or plasma anion gap determinationOrdered By: Ruby Penn on 90-08-8586Yydhh gap [Moles/Vol]17.0 mmol/L6.0-15.0[facility] Hospitalerum or plasma aspartate aminotransferase measurement (enzymatic activity/volume)Ordered By: Ruby Penn on 49-98-5920GSC [Catalytic activity/Vol]21 U/I41-37XdvvxoeytMartins Ferry Hospitalerum or plasma calcium measurement (mass/volume)Ordered By: Ruby Penn on 29-63-5797Unmgkhs [Mass/Vol]10.1 mg/dL8.2-10.2FUniversity Hospitals Lake West Medical Centererum or plasma chloride measurement (moles/volume) Ordered By: Ruby Penn on 28-03-8666Rfwjiavw [Moles/Vol]102 mmol/L95-114 [facility] Hospitalerum or plasma ethanol measurement (mass/volume)Ordered By: Ruby Penn on 70-44-7057Aeppztp [Mass/Vol]mg/dL [facility] CenterEthanol [Mass/Vol]TNPFairfield Medical CenterComment on above:Test not performedSerum or plasma glucose measurement (mass/volume)Ordered By: Ruby Penn on 55-32-2398Wbwulka [Mass/Vol]95 mg/dL 70-100[facility] Medical CenterComment on above:ADA recommended reference rangeRandom Glucose Reference Range is dependent on time and content of last meal. Glucose of more than 200 mg/dL in a nonstressed, ambulatory subject supports the diagnosisof Diabetes Mellitus.Serum or plasma high density lipoprotein (HDL) cholesterol measurementOrdered By: Marco A Zaman on 55-43-1047Xxqvxubkwuk in HDL [Mass/Vol]58 mg/xC65-17QomrluegcFairfield Medical CenterComment on above:HDL CHOL ATP-III CLASSIFICATION Cardiovascular RiskHDL > or equal to 60 mg/dL LOWHDL < 40 mg/dL HIGHSerum or plasma potassium measurement (moles/volume)Ordered By: Ruby Penn on 82-93-1947Fduqozddu [Moles/Vol]3.9 mmol/L3.5-5.1FUniversity Hospitals Lake West Medical Centererum or plasma sodium measurement (moles/volume)Ordered By: Ruby Penn on 23-32-2975Jvtase [Moles/Vol]140 mmol/C196-171QqrbiilnpMartins Ferry Hospitalerum or plasma total bilirubin measurement (mass/volume)Ordered By: Ruby Penn on 93-72-0111Gqejtzvdm [Mass/Vol]0.8 mg/dL0.3-1.2FSelect Medical Cleveland Clinic Rehabilitation Hospital, [place] Serum or plasma total carbon dioxide measurement (moles/volume)Ordered By: Ruby Penn on 35-04-4474EI1 [Moles/Vol]24.9 mmol/L22.0-30.0[facility]erry Hospitalerum or plasma total cholesterol/high density lipoprotein (HDL) cholesterol mass ratOrdered By: Marco A Zaman on 03-11-2022 Cholesterol.total/Cholesterol in HDL [Mass ratio]3.6 {ratio}<5.0[facility] Ferry Hospitalerum or plasma urea nitrogen measurement (mass/volume) Ordered By: Ruby Penn on 12-96-7198Itdh nitrogen [Mass/Vol]30 mg/dL9-23 [facility]erry Hospitalpecific gravity Auto test strip (U) [Rel density]Ordered By: Ruby Penn on 12-70-1646Onezotyd gravity (U) [Rel density]1.0071.001-1.030[facility] Ferry Hospitalquamous epithelial cells detection in urine sediment by light microscopyOrdered By: Ruby Penn on 33-58-4410Guyvxdtcbu cells.squamous LM Ql (Urine sed)0-1 [HPF]0-2FSelect Medical Cleveland Clinic Rehabilitation Hospital, AvonTSH DL <= 0.005 mIU/L QnOrdered By: Marco A Zaman on 89-34-4850ZTW Qn1.67 m[IU]/L0.45-5.33[facility] Triglyceride [Mass/volume] in Serum or PlasmaOrdered By: Marco A Zaman on 43-14-6226Eafbiysgezet [Mass/Vol]152 mg/oN67-379CpyqjstyjFairfield Medical CenterComment on above:TRIG ATP III CLASSIFICATIONTRIG less than 150 mg/dL NormalTRIG 150-199 mg/dL Borderline highTRIG 200-500 mg/dL High TRIG greater than 500 mg/dL Very highStandard traceable to the Center for Disease Conrtrol and Prevention (CDC) test method.Urine bacteria detection by automated method Ordered By: Ruby Penn on 73-95-5455Nophtrsi Auto Ql (U)None seenNone Seen [facility] CenterUrine clarity by refractometry automatedOrdered By: Ruby Penn on 89-80-3302Hwgxzrd Refractometry automated (U)ClearClear [facility] CenterUrine cocaine detectionOrdered By: Ruby Penn on 98-97-5215Tmhebof Ql (U)NegativeNegLakeHealth TriPoint Medical CenterUrine glucose measurement by automated test strip (mass/volume)Ordered By: Ruby Penn on 33-10-5862Kbedfeo Auto test strip (U) [Mass/Vol]Normal mg/dL NormalFairfield Medical CenterUrine hemoglobin detection by automated test stripOrdered By: Ruby Penn on 41-28-9669Vnruirsddr Auto test strip Ql (U)NegativeNegLakeHealth TriPoint Medical CenterUrine leukocyte esterase detection by automated test stripOrdered By: Ruby Penn on 03-11-2022 Leukocyte esterase Auto test strip Ql (U)3+NegativeFairfield Medical CenterUrobilinogen Auto test strip (U) [Mass/Vol]Ordered By: Ruby Figueroadoris on 62-93-9397Rrsltmdnjynm (U) [Mass/Vol]Normal mg/dLNormalFairfield Medical CenterpH Auto test strip (U)Ordered By: Rubypayton Penn on 49-31-9674cN (U)6.5 [pH]5.0-9.0[facility] Medical CenterRENAL FUNCTION PANELon 73-36-5169Zsphfuy [Mass/Vol]3.5 g/dLNormal3.4-5.0The [facility] HospitalComment on above:Performed By: #### RENAL #### [facility] [address] [place] [address] Dr. Emanuel DegrootCalcium [Mass/Vol]9.5 mg/dLNormal8.5-10.1[facility] Comment on above:Performed By: #### RENAL #### [facility] [address] [place] [address] Dr. Emanuel DegrootChloride [Moles/Vol]107 mmol/DBabwrj63-965Wkg [facility] Comment on above:Performed By: #### RENAL #### [facility] [address] [place] [address] Dr. Emanuel DegrootCO2 [Moles/Vol]28.6 mmol/SMuyvhd06.0-32.0[facility] Comment on above:Performed By: #### RENAL #### [facility] [address] [address] [address] Emanuel DegrootCreatinine [Mass/Vol]1.35 mg/dLCritically high0.55-1.02The [facility] HospitalComment on above:Performed By: #### RENAL #### [facility] [address] [place] [address] Dr. Emanuel GonzalezGFR-AF ZMMBGMST36 mL/min/1.54m6Bgxbvfrllg low>=60The [facility] HospitalComment on above:Performed By: #### RENAL #### [facility] [address] [place] [address] Dr. Yilan ChangEGFR-NON AF ZIQBWFQO48 mL/min/1.42l0Uihdnfyedq low>=60The [facility] HospitalComment on above:Performed By: #### RENAL #### [facility] [address] [place] [address] Dr. Emanuel DegrootGlucose [Mass/Vol]141 mg/dLCritically trfg74-806Lxu [facility] HospitalComment on above:Performed By: #### RENAL #### [facility] [address] [place] [address] Dr. Emanuel DegrootPhosphate [Mass/Vol]3.8 mg/dLNormal2.6-4.7[facility] Comment on above:Performed By: #### RENAL #### [facility] [address] [place] [address] Dr. Emanuel DegrootPotassium [Moles/Vol]3.8 mmol/LNormal3.5-5.1[facility] Comment on above:Performed By: #### RENAL #### [facility] [address] [place] [address] Dr. Emanuel DegrootSodium [Moles/Vol]143 mmol/YPfiqgh256-471OjgWayne Healthcare Main Campus Comment on above:Performed By: #### RENAL #### [facility] [address] [place] [address] Dr. Emanuel DegrootUrea nitrogen [Mass/Vol]29.0 mg/dLCritically high7.0-18.0[facility] CampusComment on above:Performed By: #### RENAL #### [facility] [address] [place] [address] Dr. Emanuel DegrootXR ANKLE RT MIN 3 VIEWSon [id number] ANKLE RT MIN 3 VIEWS EXAMINATION: XR [...] Electronically authenticated by: MIR HENRY Date: 2021-12-07 18:21[facility] HospitalLITHIUMon [id number] (Bayleelishanika(R)), Serum<0.1Critically low0.5-1.2[facility] on above:Result Comment: Plasma concentration of 0.5 - 0.8 mmol/L are advised for long-term use; concentrations of up to 1.2 mmol/L may be necessary during acute treatment. Verified by repeat analysis Detection Limit = 0.1 <0.1 indicates None DetectedPerformed By: #### LITHIUM #### [facility] [address] [address] [address] Emanuel DegrootLIPID PROFILEon [id number]-HDL RATIO NORMSEE BELOWMorrow County HospitalComment on above:Result Comment: 3.3 - 4.4 LOW RISK 4.4 - 7.1 AVERAGE RISK 7.1 - 11.0 MODERATE RISK >11.0 HIGH RISKPerformed By: #### LIPID, CMP, TSH ####[facility] [address] [id number]. Emanuel ChangCholesterol [Mass/Vol]264 mg/dLCritically high<=200[facility] on above:Performed By: #### LIPID, CMP, TSH ####[facility] [address] [id number]. Emanuel DegrootCholesterol in HDL [Mass/Vol]76 mg/dLCritically gswz68-25Dik [facility] on above:Performed By: #### LIPID, CMP, TSH ####[facility] [address] [id number]. Emanuel Degroot Cholesterol in LDL [Mass/Vol]171.2 mg/dLSelect Medical Cleveland Clinic Rehabilitation Hospital, Beachwoodment on above:Performed By: #### LIPID, CMP, TSH ####[facility] [address] [id number]. Emanuel DegrootCholesterol.total/Cholesterol in HDL [Mass ratio]3.5 {ratio}NormalThe Heaven HospitalComment on above: Performed By: #### LIPID, CMP, TSH ####[facility] [address] [address]Dr. Emanuel DegrootHDL NORMAL> or = 60 mg/dl - LOW CARDIOVASCULAR RISK <40 mg/dl - HIGH CARDIOVASCULAR RISKMorrow County HospitalComment on above:Performed By: #### LIPID, CMP, TSH ####[facility] [address] [address]Dr. Emanuel ChangLDL CALC NORMALSEE BELOWMorrow County HospitalComment on above:Result Comment: <100 mg/dl OPTIMAL 100 - 129 mg/dl NEAR OR ABOVE OPTIMAL 130 - 159 mg/dl BORDERLINE HIGH 160 - 189 mg/dl HIGH >190 mg/dl VERY HIGHPerformed By: #### LIPID, CMP, TSH ####[facility] [address] [address]Dr. Emanuel DegrootTriglyceride [Mass/Vol]84 mg/dLNormal<=150The [facility] HospitalComment on above:Performed By: #### LIPID, CMP, TSH ####[facility] [address] [address]Dr. Emanuel DegrootVLDL CALC16.8 mg/dLNoDelaware County HospitalComment on above:Performed By: #### LIPID, CMP, TSH ####[facility] [address] [address]Dr. Emanuel DegrootPROF 14(COMP METB)on 90-26-8249Gpwhauv [Mass/Vol]3.8 g/dLNormal3.4-5.0The Premier Healthment on above:Performed By: #### LIPID, CMP, TSH #### [facility] [address] [address] [address] Emanuel DegrootAlbumin/Globulin [Mass ratio]1.1 {ratio}NormalThe [facility] on above:Performed By: #### LIPID, CMP, TSH #### [facility] [address] [address] [address] Emanuel CorderoP [Catalytic activity/Vol]32 U/LCritically tqg09-034Lgk [facility] HospitalComment on above:Performed By: #### LIPID, CMP, TSH #### [facility] [address] [address] [address] Emanuel Hogan [Catalytic activity/Vol]28 U/WVbhjuz16-46Knm [facility] HospitalComment on above:Performed By: #### LIPID, CMP, TSH #### [facility] [address] [address] [address] Emanuel Kurtzon gap [Moles/Vol]11.0 mmol/LNormalWay[facility] Comment on above:Performed By: #### LIPID, CMP, TSH #### [facility] [address] [address] [address] Emanuel Marie [Catalytic activity/Vol]16 U/HAbjvpa16-23Hpv [facility] HospitalComment on above:Performed By: #### LIPID, CMP, TSH #### [facility] [address] [place] [address] Dr. Emanuel DegrootBilirubin [Mass/Vol]0.3 mg/dLNormal0.2-1.0[facility] Comment on above:Performed By: #### LIPID, CMP, TSH #### [facility] [address] [place] [address] Dr. Emanuel DegrootCalcium [Mass/Vol]9.7 mg/dLNormal8.5-10.1[facility] Comment on above:Performed By: #### LIPID, CMP, TSH #### [facility] [address] [place] [address] Dr. Emanuel DegrootChloride [Moles/Vol]105 mmol/ZExlvbg74-733XvrWayne Healthcare Main Campus Comment on above:Performed By: #### LIPID, CMP, TSH #### [facility] [address] [place] [address] Dr. Emanuel DegrootCO2 [Moles/Vol]30.4 mmol/LGruumd74.0-32.0The [facility] Comment on above:Performed By: #### LIPID, CMP, TSH #### [facility] [address] [place] [address] Dr. Yilan ChangCreatinine [Mass/Vol]1.40 mg/dLCritically high0.55-1.02[facility] CampusComment on above:Performed By: #### LIPID, CMP, TSH #### [facility] [address] [address] [address] Emanuel GonzalezGFR-AF JDVPVWKU90 mL/min/1.97j3Wmriiscqid low>=60The [facility] HospitalComment on above:Performed By: #### LIPID, CMP, TSH #### [facility] [address] [address] [address] Emanuel GonzalezGFR-NON AF JQZXABNU92 mL/min/1.86k9Nccrzhninx low>=60The [facility] HospitalComment on above:Performed By: #### LIPID, CMP, TSH #### [facility] [address] [address] [address] Emanuel DegrootGlobulin (S) [Mass/Vol]3.6 g/dLNormalThMemorial Health System [facility] HospitalComment on above:Performed By: #### LIPID, CMP, TSH #### [facility] [address] [address] [address] Emanuel DegrootGlucose [Mass/Vol]98 mg/xRMetxfo82-423GnbWayne Healthcare [facility] Campus Comment on above:Performed By: #### LIPID, CMP, TSH #### [facility] [address] [address] [address] Emanuel DegrootPotassium [Moles/Vol]4.4 mmol/LNormal3.5-5.1[facility] Comment on above:Performed By: #### LIPID, CMP, TSH #### [facility] [address] [address] [address] Emanuel DegrootProtein [Mass/Vol]7.4 g/dLNormal6.4-8.2The [facility] Comment on above:Performed By: #### LIPID, CMP, TSH #### [facility] [address] [address] [address] Emanuel DegrootSodium [Moles/Vol]142 mmol/KZgerwj248-511Zmh [facility] Comment on above:Performed By: #### LIPID, CMP, TSH #### [facility] [address] [address] [address] Emanuel Segura nitrogen [Mass/Vol]25.0 mg/dLCritically high7.0-18.0The [facility] HospitalComment on above:Performed By: #### LIPID, CMP, TSH #### [facility] [address] [address] [address] Emanuel DegrootUrea nitrogen/Creatinine [Mass ratio]17.9 mg/mgNormalThe [facility] HospitalComment on above:Performed By: #### LIPID, CMP, TSH #### [facility] [address] [address] [address] Emanuel Muller 92-59-9906HVK7.960 uIU/mLNormal0.358-3.740The [facility] HospitalComment on above:Performed By: #### LIPID, CMP, TSH ####[facility] [address] [address]Dr. Emanuel DegrootPTH INTACTon 13-68-0817ONV, Vbiljr534 pg/mLCritically xpnu19-08Eix [facility] Comment on above:Performed By: #### PTHINT ####[facility] [address] [address]DrAleah DegrootHEMOGRAM AND PLATELon 35-07-0723Eymsjtkypi (Bld) [Volume fraction]37.8 %Fecyjd31.0-48.0The [facility] HospitalComment on above:Performed By: #### HH ####[facility] [address] [address]DrAleah DegrootHemoglobin (Bld) [Mass/Vol]11.8 g/dLCritically low12.0-16.0The [facility] HospitalComment on above:Performed By: #### HH ####[facility] [address] [address]DrAleah DegrootMCH (RBC) [Entitic mass]31.7 pgNormal 26.7-34.0The [facility] HospitalComment on above:Performed By: #### HH ####[facility] [address] [address]Dr. Maria Del Carmen elizabethan ZaneHC (RBC) [Mass/Vol]31.2 g/yFJciein39.9-35.2The [facility] Comment on above:Performed By: #### HH ####[facility] [address] [address]DrAleah DegrootV (RBC) [Entitic vol]101.6 fL Critically high81.0-99.0The [facility] HospitalComment on above:Performed By: #### HH ####[facility] [address] [address]Dr. Emanuel DegrootPLT237 103/zlVzxkdh733-014Enm [facility] HospitalComment on above: Performed By: #### HH ####[facility] [address] [address]DrAleah DegrootRBC3.72 106/ulCritically low4.20-5.40 The [facility] HospitalComment on above:Performed By: #### HH ####[facility] [address] [address]DrAleah DegrootWBC 7.8 103/ulNormal4.0-11.0The [facility] HospitalComment on above:Performed By: #### HH ####[facility] [address] [place], [place] [address]Dr. Emanuel DergootMAGNESIUMon 32-87-7070Virayudiw [Mass/Vol]2.4 mg/dLCritically high 1.6-2.3The [facility] HospitalComment on above:Performed By: #### RENAL, MG #### [facility] [address] [address] [address] Emanuel DegrootRENAL FUNCTION PANELon 87-45-1105Hkqnzju [Mass/Vol]3.5 g/dLNormal 3.4-5.0The [facility] HospitalComment on above:Performed By: #### RENAL, MG #### [facility] [address] [place] [address] Dr. Emanuel DegrootCalcium [Mass/Vol]9.4 mg/dLNormal8.5-10.1The [facility] Comment on above:Performed By: #### RENAL, MG #### [facility] [address] [address] [address] Emanuel DegrootChloride [Moles/Vol]104 mmol/HCsfftj07-462Gxd [facility] Comment on above:Performed By: #### RENAL, MG #### [facility] [address] [place] [address] Dr. Emanuel DegrootCO2 [Moles/Vol]28.4 mmol/AOpwhtv37.0-30.0The [facility] Comment on above:Performed By: #### RENAL, MG #### [facility] [address] [place] [address] Dr. Emanuel DegrootCreatinine [Mass/Vol]1.58 mg/dLCritically high0.52-1.04The [facility] HospitalComment on above:Performed By: #### RENAL, MG #### [facility] [address] [place] [address] Dr. Castellanos ChangEGFR-AF CMVFICLB96 mL/min/1.80t4Gctyvamrti low>=60The [facility] HospitalComment on above:Performed By: #### RENAL, MG #### [facility] [address] [place] [address] Dr. Castellanos ChangEGFR-NON AF IMLLDXMB89 mL/min/1.57n0Qyamavozxk low>=60The [facility] HospitalComment on above:Performed By: #### RENAL, MG #### [facility] [address] [place] [address] Dr. Emanuel DegrootGlucose [Mass/Vol]83 mg/vMWrduwp08-486Akv [facility] Comment on above:Performed By: #### RENAL, MG #### [facility] [address] [place] [address] Dr. Emanuel DegrootPhosphate [Mass/Vol]4.4 mg/dLNormal2.5-4.5The [facility] Comment on above:Performed By: #### RENAL, MG #### [facility] [address] [place] [address] Dr. Emanuel DegrootPotassium [Moles/Vol]3.9 mmol/LNormal3.4-5.0The [facility] Comment on above:Performed By: #### RENAL, MG #### [facility] [address] [place] [address] Dr. Emanuel DegrootSodium [Moles/Vol]139 mmol/QIkvfqd311-799Gli [facility] Comment on above:Performed By: #### RENAL, MG #### [facility] [address] [place] [address] Dr. Emanuel DegrootUrea nitrogen [Mass/Vol]28.0 mg/dLCritically high7.0-18.0The [facility] HospitalComment on above:Performed By: #### RENAL, MG #### [facility] [address] [place] [address] Dr. Emanuel Hall RANDOM W/MICROSCOPICon 25-65-8565ZIBGCGZTCECV SEENNormalNONE SEENWayne Healthcare Main CampusComment on above:Performed By: #### UAMIC #### [facility] [address] [place] [address] Dr. Emanuel Spring Ql (U)NegativeNormalNEGATIVEWayne Healthcare Main Campus Comment on above:Performed By: #### UAMIC #### [facility] [address] [place] [address] Dr. Emanuel AyalaE SEENNormalNONE SEENWayne Healthcare Main CampusComment on above:Performed By: #### UAMIC #### [facility] [address] [place] [address] Dr. Emanuel Reynoso (U)CLEARNormalCLEARThe [facility] HospitalComment on above: Performed By: #### UAMIC #### [facility] [address] [place] [address] Dr. Emanuel Ko (U)LT. YELLOWNormalYELLOWWayne Healthcare Main CampusComment on above:Performed By: #### UAMIC #### [facility] [address] [place] [address] Dr. Yilan ChangCrystals LM Nom (Urine sed)NONE SEENNormalNONE SEENWayne Healthcare Main CampusComment on above:Performed By: #### UAMIC #### [facility] [address] [address] [address] Castellanos ChangEpithelial cells LM Ql (Urine sed)MODERATEAbnormalNONE SEEN /RARE The [facility] HospitalComment on above:Performed By: #### UAMIC #### [facility] [address] [address] [address] Emanuel DegrootGlucose Ql (U)NegativeNormalNEGATIVEWayne Healthcare Main CampusComment on above:Performed By: #### UAMIC #### [facility] [address] [place] [address] Dr. Emanuel DegrootHemoglobin Ql (U)NegativeNormalNEGATIVESelect Medical Specialty [facility] [place] on above:Performed By: #### UAMIC #### [facility] [address] [place] [address] Dr. Emanuel DegrootKetones Ql (U)NegativeNormalNEGATIVEWayne Healthcare Main CampusComment on above:Performed By: #### UAMIC #### [facility] [address] [address] [address] Emanuel DegrootLEUKOCYTESSMALLAbnormalNEGATIVEWayne Healthcare Main CampusComascension borgess-[facility]pp hospital on above:Performed By: #### UAMIC #### [facility] [address] [place] [address] Dr. Emanuel DegrootMUCOUSNONE SEENNormalNONE SEENWayne Healthcare Main CampusComment on above:Performed By: #### UAMIC #### [facility] [address] [address] [address] Emanuel DegrootNitrite Ql (U)NegativeNormalNEGATIVEWayne Healthcare Main CampusComment on above:Performed By: #### UAMIC #### [facility] [address] [address] [address] Emanuel DegrootpH (U)6.5 [pH]Normal5-9The [facility] HospitalComment on above: Performed By: #### UAMIC #### [facility] [address] [address] [address] Emanuel LinoONE SEENAbnormal0-2The [facility] HospitalComment on above: Performed By: #### UAMIC #### [facility] [address] [address] [address] Emanuel Negrete GRAVITY1.828Votisg1.005-<=1.025The [facility] HospitalComment on above:Performed By: #### UAMIC #### [facility] [address] [address] [address] Emanuel Hall PROTEINNegativeNormalNEGATIVE/ TRACEThe [facility] Comment on above:Performed By: #### UAMIC #### [facility] [address] [place] [address] Dr. Emanuel Swanson Qn (U)0.2 {Destiny'U}/dLNormal0.2 - 1.0The [facility] HospitalComment on above:Performed By: #### UAMIC #### [facility] [address] [place] [address] Dr. Emanuel eDgrootWBC2-5AbnormalNONE SEENWayne Healthcare Main CampusComment on above: Performed By: #### UAMIC #### [facility] [address] [address] [address] Emanuel Mccurdy T PROTEIN CREAT RATIOon 45-92-9178JM PROT CREAT RAT0.19 NormalThe [facility] HospitalComment on above:Result Comment: unable to calculate Performed By: #### URTPCR ####[facility] [address] [address]DrAleah Brunson TOTAL PROTEIN<5.0Normal<=12.0The [facility] HospitalComment on above:Performed By: #### URTPCR ####[facility] [address] [address]Dr. Emanuel Mccurdy CREAT26.13 mg/hMIynqrh99.00-300.00The [facility] HospitalComment on above: Performed By: #### URTPCR ####[facility] [address] [place], [place] [address]Yz. Emanuel DegrootVITAMIN D 25 OHon 06-13-3165PPW D 25-OH 43.1 ng/mLNAshtabula County Medical CenterComment on above:Performed By: #### VITAD ####[facility] [address] [place], [place] [address]Eh. Emanuel DegrootVIT D RANGESSEE BELOWNoDelaware County HospitalComment on above: Result Comment: <20 ng/mL Vit D deficient 20 - <30 ng/mL Vit D insufficient 30 - 100 ng/mL Vit D sufficient >100 ng/mL Potential ToxicityPerformed By: #### VITAD ####[facility] [address] [address]Dr. Emanuel Zane Video Visit - Telehealthon [id number] Video Visit - [facility] Complaint Medication Recheck Subjective Interval History/HPI This visit was conducted via two-way, real-time interactive video communications from my office using [employer] due to the restrictions of the COVID-19 pandemic. No physical exam was conducted other than those areas of the body visible to telecommunications with the patient located at [address] [place] [phone], with spouse in attendance. If it is determined that the patient should be evaluated in the clinic, the patient will be directed to the appropriate clinic or venue. The patient or their guardian verbally consented to this visit. Video time was 10 minutes with the patient face to face greater than 50% in addition to counselingand coordination of care. Patient is seen via [...] or staying asleep. She denied feeling hopeless orworthless and denies ongoing morbid thoughts. Denies ongoing suicidal ideation, intent and plan. She is not experiencing manic mood symptoms at present. She denies having pervasive irritable or elated moods. She is not complaining of ongoing FOI or racing thoughts or distractibility. Patient denies any ongoing increased goal- directed activities or increased dizziness. Speech was within [...] are no ongoing pervasive manic or depressive moodsymptoms present. No methodist preoccupation or any other psychotic symptoms present. [...] Logical and goal directed Thought Content.: Non-psychotic Cognition/Attention/Memory/Concentration: Alert and oriented x3 Insight/Judgement:limited to fair Suicidal: Denies ongoing suicidal ideation, intent and plan. Homicidal: Denied ongoing homicidal ideations, intent or plan. Language: Within normal limits Fund of Knowledge: Adequate Risk Assessment Currently at low risk of self harm. Denied ongoing feelings of hopelessness. Denies ongoing suicidal ideation, intent and plan in session Diagnosis/Assessment/Treatment Plan 1. Bipolar I disorder, current or most recent episode depressed, in partial remission with mood-congruent psychotic features (F31.75: Bipolar disorder, in partial remission, most recent episode depressed) 2. Anxiety (F41.9: Anxiety disorder, unspecified) 3. Chronic kidney disease (CKD), stage III (moderate) (N18.3: Chronic kidney disease, stage 3 (moderate)) stable 4. High risk medication use (Z79.899: Other senior living (current) drug therapy) General Treatment Plan Pharmacological [...] none Treatment Goals and Objectives discussed. Other Referrals/Consults/Psychological Testing: none Clinical Global Impression Current GAF:65 Prognosis BASELINE STABILITY WITH MEDICATION AND TREATMENT COMPLIANCE Informed Consent Informed Consent: Standard Inform Consent (IC), Non-FDA Guidelines Off-Use IC Informed Consent Obtained: Yes, we discussed the diagnosis/diagnoses, the treatment options, treatment/treatments recommended vs. no treatment. We discussed risks and benefits of treatment options, treatment recommendations and vs. no treatment. Follow-up With When Contact Information Gerald ADAMES MD In 3 months [address] [facility] [address] [place] [address]- Additional Instructions: Other Information OARRS [...] arthropathy of right shoulder, TMJ syndrome, Tonsillectomy, [place] tooth. Medications clonazepam 1 mg Tab, 1 [...] virus vaccine, inactivated - Not Given Patient RefusesMercy Health Springfield Regional Medical CenterComment on above:Result Comment: Electronically Signed By: ROSANGELA DIAZ, Gerald\.br\Date and Time Signed: 04/22/20 15:26 ESTPatient Education on 22-78-0829Uienpfi EducationOphthalmology Basics of Medication Management UNDERSTAND YOUR MEDICATIONS [...] pharmacist will have all of your information andunderstand possible drug interactions. ? Ask your caregiver questions about your prescriptions and any bkkc-kcd-fdprjpg medications, vitamins, herbal or dietary supplements that you take. TAKE YOUR MEDICATION SAFELY ? Take medications only as prescribed. ? Talk with your caregiver or pharmacist if some of your pills look the same and it is difficult totell them apart. They can help you to [...] at your local pharmacy), written chart from yourcaregiver, notebook, binder, or your own calendar to organize your daily medications. Please note: if you are having trouble telling your different medications apart, keep them in the original bottles. ? Set cues or reminders for taking your medications. Use watch alarms, mobile device/phone calendaralarms, or sticky notes. ? More advanced medication [...] you. If there is an emergency, a respondentcan quickly see what medications you are taking. [...] take. Find out if your local government [place] program has a Medicine Take Back program for safe disposal. If not, some medications maybe mixed with inedible substances and thrown away [...] needed. ? Do not give your child bnby-ryn-obzopcy cough and cold medicines if they are under 2 years of age. ? Avoid giving your child or teenager Aspirin or Aspirin-containing products. Document Released: 09/07/2011 Document Revised: 08/14/2012 Document Reviewed: 09/07/2011 ExitCare? Patient Information ?2014 [employer].[facility] Video Visit - Telehealthon 25-01-1096RK Video Visit - TelehealthChief Complaint Tele Visit Subjective Interval History/HPI This visit was conducted via two-way, real-time interactive video communications from my office using [employer] due to the restrictions of the COVID-19 pandemic. No physical exam was conducted other than those areas of the body visible to telecommunications with the patient located at [address] [place] [address] [phone], with spouse in attendance. If it is determined that the patient should be evaluated in the clinic, the patient will be directed to the appropriate clinic or venue. The patient or their guardian verbally consented to this visit. Video time was 10 minutes with the patient face to face greater than 50% in addition to counselingand coordination of care. Patient is seen via [...] active and taking care of her daily ADLSand Chores. She has been spending time with the family and is not isolating herself and denied ongoing anhedonia. Normal Appetite reported. She denied feeling hopeless or worthless and denies ongoingmorbid thoughts. Denies ongoing suicidal ideation, intent and plan. She is not experiencing manic mood symptoms at present. She denies having pervasive irritable or elated moods. She is not complaining of ongoing FOI or racing thoughts , denies ongoing distractibility. Her speech is normal limits, she is not reporting any increased busyness or increased psychomotoragitation. No ongoing alcohol or drug abuse reported by pt. Pt denied ongoing excessive anxiety or worries ellie Pedersen has helped her significantly Spouse reports patient [...] Logical and goal directed Thought Content.: Non-psychotic Cognition/Attention/Memory/Concentration: Alert and oriented x4 Insight/Judgement:fair Suicidal: Denies ongoing suicidal ideation, intent and plan. Homicidal: Denied ongoing homicidal ideations, intent or plan. Language: Within normal limits Fund of Knowledge: Adequate Risk Assessment Currently at low risk of self harm. Denied ongoing feelings of hopelessness. Denies ongoing suicidal ideation, intent and plan in session Diagnosis/Assessment/Treatment Plan Informed Consent: Standard Inform Consent (IC), [...] 3. 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) Orders: clonazepam, 1 mg = 1 tab(s), Oral, Once a day (at bedtime), f41.1, # 30 tab(s), Refills(s) 1, Pharmacy: [facility] #[id number], 158, cm, 01/18/20 12:40:00 EDT, Height/Length Dosing, 70.3, kg, 01/18/20 12:40:00 EDT, Weight Dosing lithium, 900 mg = 2 tab(s), Oral, Bedtime, # 60 tab(s), Refills(s) 5, Pharmacy: [facility] #[id number], 158, cm, 01/18/20 12:40:00 EDT, Height/Length Dosing, 70.3, kg, 01/18/20 12:40:00 EDT, Weight Dosing olanzapine, 10 mg = 1 tab(s), Oral, Bedtime, # 30 tab(s), Refills(s) 5, Pharmacy: [facility] #[id number], 158, cm, 01/18/20 12:40:00 EDT, Height/Length Dosing, [...] none Treatment Goals and Objectives discussed. Other Referrals/Consults/Psychological Testing: none Clinical Global Impression Current GAF:70 Prognosis BASELINE STABILITY WITH MEDICATION AND TREATMENT COMPLIANCE Informed Consent Informed Consent: Standard Inform Consent (IC), Non-FDA Guidelines Off-Use IC Informed Consent Obtained: Yes, we discussed the diagnosis/diagnoses, the treatment options, treatment/treatments recommended vs. no treatment. We discussed risks and benefits of treatment options, treatment recommendations and vs. no treatment. Follow-up With When Contact Information Gerald ADAMES MD In 6 weeks [address] [facility] [address] [place] [address]- Additional Instructions: Other Information OARRS [...] arthropathy of right shoulder, TMJ syndrome, Tonsillectomy, [place] tooth. Medications clonazepam 1 mg Tab, 1 [...] virus vaccine, inactivated - Not Given Patient RefusesNormBucyrus Community HospitalComment on above:Result Comment: Electronically Signed By: ROSANGELA DIAZ, Gerald\.br\Date and Time Signed: 02/07/20 09:47 EDTPatient Education on 80-16-2413Shcnlnu EducationOphthalmology Basics of Medication Management UNDERSTAND YOUR MEDICATIONS [...] pharmacist will have all of your information andunderstand possible drug interactions. ? Ask your caregiver questions about your prescriptions and any hypi-emk-gszfwos medications, vitamins, herbal or dietary supplements that you take. TAKE YOUR MEDICATION SAFELY ? Take medications only as prescribed. ? Talk with your caregiver or pharmacist if some of your pills look the same and it is difficult totell them apart. They can help you to [...] at your local pharmacy), written chart from yourcaregiver, notebook, binder, or your own calendar to organize your daily medications. Please note: if you are having trouble telling your different medications apart, keep them in the original bottles. ? Set cues or reminders for taking your medications. Use watch alarms, mobile device/phone calendaralarms, or sticky notes. ? More advanced medication [...] you. If there is an emergency, a respondentcan quickly see what medications you are taking. [...] for safe disposal. If not, some medications maybe mixed with inedible substances and thrown away [...] needed. ? Do not give your child dblx-zwf-equydxj cough and cold medicines if they are under 2 years of age. ? Avoid giving your child or teenager Aspirin or Aspirin-containing products. Document Released: 09/07/2011 Document Revised: 08/14/2012 Document Reviewed: 09/07/2011 ExitCare? Patient Information ?2013 [employer].[facility] CenterCT Abdomen/Pelvis w/ Contraston 53-50-1401RS Abdomen/Pelvis w/ Contrast Exam Date/Time: 08/18/2019 16:57 [...] Given? No Oral contrast amount in ml's: 0NormalLima City HospitalValproic Acidon 90-07-1204Meezgtjn Acid69 ug/xCJvqbsx00-018HrwowKettering Memorial HospitalComment on above:Performed By: #### BREANA, CP ####[address] [address] #### GLYHGB ####[address] [place] [address] Date last dose,[id number] Clinic Orthopedic CenterComment on above:Performed By: #### BREANA, CP ####[address] [address] #### GLYHGB ####[facility] [address] [place] [address] Dose fygsmr0828RMOorlyv [facility] HospitalComment on above:Performed By: #### CDP, CP ####[address] [address] #### GLYHGB ####[facility] [place] [address] Time last dose,0835NoCrystal Clinic Orthopedic CenterComment on above:Result Comment: Performed at [facility] [address] [place] [address] Performed By: #### CDP, CP ####[address] [address] #### GLYHGB ####[address] [place] [address] CBC with Diffon [id number]. Basophil 0.00 k/uLNormal0.0-0.2[facility] HospitalComment on above:Result Comment: Performed at [facility] [address] [place] [address] Performed By: #### CDP, CP ####[address] [address] Abs.Neutrophil (Seg)3.40 k/uLNormal 1.3-9.1[facility] HospitalComment on above:Performed By: #### CDP, CP ####[address] [address] Basophils/100 WBC Auto (Bld)1 %Normal0-2[facility] Health CenterComment on above:Performed By: #### CDP, CP ####[address] [address] Yydmsthqvln6.10 10*3/uLNormal0.0-0.4[facility] HospitalComment on above:Performed By: #### CDP, CP ####[address] [address] Eosinophils/100 leukocytes1 %Normal0-4MerCleveland Clinic Fairview HospitalComment on above:Performed By: #### CDP, CP ####[address] [address] Erythrocyte distribution width Auto Ratio (RBC)13.7 %Normal 11.5-14.9[facility] HospitalComment on above:Performed By: #### CDP, CP ####[address] [address] Erythrocytes (RBC)4.24 10*6/uLNormal4.0-5.2[facility] Health CenterComment on above:Performed By: #### CDP, CP ####[address] [address] Hematocrit (HCT)40.7 %Ooosmu46-77JipmbKettering Memorial HospitalComascension borgess-pipp hospital on above:Performed By: #### CDP, CP ####[address] [address] Hemoglobin mass conc (Bld)13.8 g/pLGbsyjm94.0-16.0[facility] HospitalComment on above: Performed By: #### CDP, CP ####[address] [address] Gszntimyayx3.70 10*3/uLNormal1.0-4.8MerCleveland Clinic Fairview HospitalComascension borgess-pipp hospital on above:Performed By: #### CDP, CP ####[facility] [place] [address] Lymphocytes/100 elcnyrrrlp07 %Mxyyha67-90GpfflKettering Memorial HospitalComascension borgess-pipp hospital on above:Performed By: #### CDP, CP ####[address] [address] SJU02.6 yuWvztcs09-09KwjrrKettering Memorial HospitalComascension borgess-pipp hospital on above:Performed By: #### CDP, CP ####[address] [address] MCHC mass conc (RBC)34.0 g/gCXdsawd18-79UpsnnCleveland Clinic Fairview HospitalComment on above:Performed By: #### CDP, CP ####[address] [address] UWO84.9 fLNormal 80-100MerCleveland Clinic Fairview HospitalComment on above:Performed By: #### CDP, CP ####[address] [address] Monocytes0.70 10*3/uLNormal0.1-1.3[facility] Health CenterComment on above: Performed By: #### CDP, CP ####[address] [address] Monocytes/100 hequfikvyw10 %High1-7[facility] HospitalComment on above:Performed By: #### CDP, CP ####[address] [address] Neutrophil (Seg)57 %Czvqky63-16YibsgKettering Memorial HospitalComment on above:Performed By: #### CDP, CP ####[address] [address] Platelet mean volume (PMV)8.1 fLNormal6.0-12.0[facility] HospitalComment on above:Performed By: #### CDP, CP ####[address] [address] Ppwhzsubp305 10*3/cSKbavgm516-279LxkjfCleveland Clinic Fairview HospitalComment on above:Performed By: #### CDP, CP ####[address] [address] WBC (Leukocytes) 6.0 10*3/uLNormal3.5-11.0[facility] HospitalComment on above:Performed By: #### CDP, CP ####[address], [place] [phone] Diff PerformedNOT REPORTEDNormalDayton VA Medical Center on above:Performed By: #### CDP, CP ####[address], [place] [phone] morphologyNOT REPORTEDNormChillicothe VA Medical CenterComment on above:Performed By: #### CDP, CP ####[address] [place] [address] Erythrocytes (RBC)NOT REPORTEDNormMercy Health Tiffin Hospital on above: Performed By: #### CDP, CP ####[address] [place] [address] Granulocytes/100 WBC (Bld)NOT REPORTEDNormal 0.00-0.30[facility] on above:Performed By: #### CDP, CP ####[address] [place] [address] Immature granulocytes #/vol (Bld)NOT WDDCBRKRVfakhr2Arzro[address] [place] [address] Comment on above:Performed By: #### CDP, CP ####[address], [place] [phone] REPORTEDNormalDayton VA Medical Center on above:Performed By: #### CDP, CP ####[address] [place] [address] WBC MorphologyNOT REPORTEDNoRegency Hospital Cleveland West on above:Performed By: #### CDP, CP ####[address] [place] [address] Comp Metabolic Profon 11-15-2017(cont.)NormalMercy Flowery Branch HospitalComment on above:Result Comment: Average GFR for 50-59 years old: 93 mL/min/1.73sq mChronic Kidney Disease: <60 mL/min/1.73sq mKidney failure: <15 mL/min/1.73sq meGFR calculated using average adult body mass. Additional eGFR calculator available at:http://[email or web address]/multiple_crcl_2012.htmPerformed at [address] [address] Performed By: #### CDP, CP ####[address] [address] #### GLYHGB ####[address] [place] [address] Alanine aminotransferase (ALT)16 U/LNormal5-33 [facility] HospitalComascension borgess-pipp hospital on above:Result Comment: SPECIMEN MODERATELY HEMOLYZED, RESULTS MAY BE ADVERSELY AFFECTEDPerformed By: #### CDP, CP ####[address] [address] #### GLYHGB ####[address] [place] [phone] g/dLNormal3.5-5.2[facility] hospitaly [facility] Health CenterComment on above:Performed By: #### CDP, CP ####[address] [address] #### GLYHGB ####[address] [place] [address] Alkaline Phos18 U/KRip97-454MaxccKettering Memorial HospitalComment on above:Performed By: #### CDP, CP ####[address] [address] #### GLYHGB ####[address] [address] Anion gap13 mmol/LNormal9-17[facility] HospitalComment on above:Performed By: #### CDP, CP ####[address] [address] #### GLYHGB ####[address] [address] Aspartate aminotransferase (AST)25 U/LNormal<32MerCleveland Clinic Fairview HospitalComascension borgess-pipp hospital on above: Result Comment: SPECIMEN MODERATELY HEMOLYZED, RESULTS MAY BE ADVERSELY AFFECTED Performed By: #### CDP, CP ####[address] [address] #### GLYHGB ####[address] [address] Bilirubin Ql (U)0.28 mg/dLLow0.3-1.2[facility] hospitaly [facility] Health CenterComment on above:Performed By: #### CDP, CP ####[address] [address] #### GLYHGB ####[address] [address] Sqcsjen86.1 mg/dLNormal8.6-10.4[facility] HospitalComascension borg[facility]-pi[facility] hospital on above:Performed By: #### CDP, CP ####[address] [address] #### GLYHGB ####[address] [address] Aujssusq98 mmol/TDrntfb27-377AjtbiKettering Memorial HospitalComascension borgess-pipp hospital on above:Performed By: #### CDP, CP ####[address] [address] #### GLYHGB ####[facility] [place] [address] DF478 mmol/YNxqsiu35-41YokjjKettering Memorial HospitalComment on above:Performed By: #### CDP, CP ####[address] [address] #### GLYHGB ####[address] [place] [address] Udqokckghz2.04 mg/dLHigh 0.50-0.90[facility] HospitalComment on above:Performed By: #### CDP, CP ####[address] [address] #### GLYHGB ####[address] [place] [address] eGFR (non-black)mL/min/{1.73_m2}Normal>60[facility] HospitalComment on above: Performed By: #### CDP, CP ####[address] [address] #### GLYHGB ####[address] [address] eGFR (non-black)54 mL/min/{1.73_m2}Low>60[facility] HospitalComment on above:Performed By: #### CDP, CP ####[address] [address] #### GLYHGB ####[address] [place] [address] Glucose mass mgat603 mg/sBVcxn15-98Npujq [facility] HospitalComment on above:Performed By: #### CDP, CP ####[address] [address] #### GLYHGB ####[address] [address] Potassium molar conc4.2 mmol/LNormal3.7-5.3MMain Campus Medical CenterComment on above:Result Comment: SPECIMEN MODERATELY HEMOLYZED, RESULTS MAY BE ADVERSELY AFFECTEDPerformed By: #### CDP, CP ####[address] [address] #### GLYHGB ####[address] [address] Wpujtvl1.8 g/dLNormal 6.4-8.3MMain Campus Medical CenterComment on above:Performed By: #### CDP, CP ####[address] [address] #### GLYHGB ####[address] [address] Sodium 140 mmol/XYmgesy916-194KgnmmKettering Memorial HospitalComment on above:Performed By: #### CDP, CP ####[address] [address] #### GLYHGB ####[address] [address] Urea bxmxlyrv93 mg/dLHigh6-20[facility] HospitalComment on above:Performed By: #### CDP, CP ####[address] [address] #### GLYHGB ####[address] [address] Albumin/Globulin RatioNOT REPORTEDNormal1.0-2.5 [facility] HospitalComment on above:Performed By: #### CDP, CP ####[address] [address] #### GLYHGB ####[facility] [place] [address] BUN/CRE Ratio NOT REPORTEDNormal9-20[facility] HospitalComment on above:Performed By: #### CDP, CP ####[address] [address] #### GLYHGB ####[facility] [place], [place] [phone]:NOT REPORTEDNormalKettering Memorial HospitalComment on above:Performed By: #### CDP, CP ####[address] [address] #### GLYHGB ####[address] [place] [address] MRI BRAIN WO CONTRASTon 52-30-5433PAR BRAIN WO CONTRASTEXAMINATION:MRI OF THE BRAIN WITHOUT CONTRAST 11/15/2017 2:00 pmTECHNIQUE:Multiplanar multisequence MRI of the brain was performed without theadministration of intravenous contrast.COMPARISON:None.HISTORY:ORDERING SYSTEM PROVIDED HISTORY: CONFUSION/DELIRIUM, ALTERED LOC, UNEXPLAINEDTECHNOLOGIST PROVIDED HISTORY:Ordering Physician Provided Reason for Exam: CONFUSION/DELIRIUM, ALTERED LOC,UNEXPLAINED NEW ONSET VISUAL HALLUCINATIONS IN ADDITION TO PSYCHOSIS NOTRESOLVING WITH ANTIPSYCHOTICSAcuity: UnknownType of Exam: UnknownAdditional signs and symptoms: PT HEARING VOICES; PT POOR HISTORIANFINDINGS:INTRACRANIAL STRUCTURES/VENTRICLES: There is no acute infarct. No mass effector midline shift. Noevidence of an acute intracranial hemorrhage. Theventricles and sulci are normal in size and configuration. Thesellar/suprasellar regions appear unremarkable. The normal signal voidswithin the major intracranial vessels appear maintained.ORBITS: The visualized portion of the orbits demonstrate no acute abnormality.SINUSES: The visualized paranasal sinuses and mastoid air cells are wellaerated.BONES/SOFT TISSUES: The bone marrow signal intensity appears normal. The softtissues demonstrate no acut e abnormality.IMPRESSION: No acute abnormality.Interpreted by:EILEEN Silvaigned by:Dilan Pathak MD11/15/18Final resultNormalMerCleveland Clinic Fairview HospitalAmmoniaon 32-63-7695Gnmttkb87 umol/PCyulix07-13ShodcCleveland Clinic Fairview HospitalComment on above:Result Comment: Performed at [facility] [address] [place] [address] Performed By: #### TREY ####[address] [address] B12/Folate Panelon 23-02-4685Uuxpt Acid>20.0Normal>4.8[facility] Comment on above:Result Comment: Performed at [facility] [address] [place] [address] Performed By: #### CDP, CMPX ####[address] [address] #### TREP, B12FOL ####[address] [address] Cobalamins (Vitamin B12)1550 pg/uQZwmz133-3544WpywpKettering Memorial HospitalComment on above: Performed By: #### CDP, CMPX ####[address] [address] #### TREP, B12FOL ####[address] [address] CBC with Diffon [id number]. Basophil 0.00 k/uLNormal0.0-0.2[facility] Health CenterComment on above:Result Comment: Performed at [facility] [address] [place] [id number] [phone] By: #### CDP, CMPX ####[address] [address] #### TREP, B12FOL ####[address] [address] Abs.Neutrophil (Seg)5.90 k/uLNormal1.3-9.1[facility] Health CenterComment on above:Performed By: #### CDP, CMPX ####[address] [address] #### TREP, B12FOL ####[address] [address] Basophils/100 WBC Auto (Bld)1 %Normal0-2[facility] Health CenterComment on above:Performed By: #### CDP, CMPX ####[address] [address] #### TREP, B12FOL ####[address] [address] Eosinophils 0.00 10*3/uLNormal0.0-0.4MerCleveland Clinic Fairview HospitalComment on above:Performed By: #### CDP, CMPX ####[address] [address] #### TREP, B12FOL ####[address] [address] Eosinophils/100 leukocytes0 %Normal0-4[facility] HospitalComment on above:Performed By: #### CDP, CMPX ####[address] [address] #### TREP, B12FOL ####[address] [address] Erythrocyte distribution width Auto Ratio (RBC)13.8 %Uphyxt75.5-14.9[facility] Hospitalment on above:Performed By: #### CDP, CMPX ####[address] [address] #### TREP, B12FOL ####[address] [address] Erythrocytes (RBC)4.37 10*6/uLNormal4.0-5.2MMain Campus Medical CenterComment on above: Performed By: #### CDP, CMPX ####[address] [address] #### TREP, B12FOL ####[address] [address] Hematocrit (HCT)41.0 %Aftfqv96-94GonelKettering Memorial HospitalComment on above:Performed By: #### CDP, CMPX ####[address] [address] #### TREP, B12FOL ####[address] [address] Hemoglobin mass conc (Bld)13.9 g/vYScjwwn32.0-16.0[facility] HospitalComascension borg[facility]-pipp hospital on above:Performed By: #### CDP, CMPX ####[address] [address] #### TREP, B12FOL ####[address] [address] Eqqmwdcwetn7.90 10*3/uLNormal1.0-4.8[facility] HospitalComascension borgess-pipp hospital on above:Performed By: #### CDP, CMPX ####[address] [place] [address] #### TREP, B12FOL ####[address] [place] [address] Lymphocytes/100 uzhrdjlkuu91 %Dhp13-92KoasaKettering Memorial HospitalComment on above:Performed By: #### CDP, CMPX ####[address] [address] #### TREP, B12FOL ####[address] [address] IFM80.9 hgYbbcyq65-16NozqwKettering Memorial HospitalComment on above:Performed By: #### CDP, CMPX ####[address] [address] #### TREP, B12FOL ####[address] [address] MCHC mass conc (RBC)34.0 g/vZWbbkrj76-50VbczqKettering Memorial HospitalComment on above:Performed By: #### CDP, CMPX ####[address] [address] #### TREP, B12FOL ####[address] [address] IJH56.8 hEZkocbt74-674NfjuwKettering Memorial HospitalComascension borgess-pipp hospital on above:Performed By: #### CDP, CMPX ####[address] [address] #### TREP, B12FOL ####[address] [address] Dlooitxkj0.00 10*3/uLNormal0.1-1.3MercMarymount HospitalComment on above:Performed By: #### CDP, CMPX ####[address] [place] [address] #### TREP, B12FOL ####[address] [address] Monocytes/100 ryehfqcdxk84 %High1-7[facility] HospitalComment on above:Performed By: #### CDP, CMPX ####[address] [address] #### TREP, B12FOL ####[address] [address] Neutrophil (Seg)66 %Bnudnc98-76MruzwKettering Memorial Hospital Comment on above:Performed By: #### CDP, CMPX ####[address] [address] #### TREP, B12FOL ####[address] [address] Platelet mean volume (PMV)8.4 fLNormal6.0-12.0[facility] HospitalComment on above:Performed By: #### CDP, CMPX ####[address] [address] #### TREP, B12FOL ####[address] [address] Pmbkltpao723 10*3/vYYbnvdl151-270RckgoKettering Memorial HospitalComment on above:Performed By: #### CDP, CMPX ####[address] [address] #### TREP, B12FOL ####[address] [address] WBC (Leukocytes)8.9 10*3/uLNormal3.5-11.0[facility] HospitalComment on above: Performed By: #### CDP, CMPX ####[address] [address] #### TREP, B12FOL ####[address] [place] [address] Auto Diff PerformedNOT REPORTEDNormal [facility] HospitalComment on above:Performed By: #### CDP, CMPX ####[address] [address] #### TREP, B12FOL ####[address] [address] Erythrocyte morphologyNOT REPORTEDNormalKettering Memorial HospitalComment on above:Performed By: #### CDP, CMPX ####[address] [address] #### TREP, B12FOL ####[address] [address] Erythrocytes (RBC)NOT REPORTEDNormalOhioHealth Dublin Methodist Hospitalment on above:Performed By: #### CDP, CMPX ####[address] [address] #### TREP, B12FOL ####[address] [place] [address] Granulocytes/100 WBC (Bld)NOT REPORTEDNormal0.00-0.30[facility] Comment on above:Performed By: #### CDP, CMPX ####[address] [address] [address] #### TREP, B12FOL ####[address] [place] [address] Immature granulocytes #/vol (Bld)NOT WQFGPMIPWlozdt4Qibuz[address] [place], [place] [address]Comment on above: Performed By: #### CDP, CMPX ####[address] [address] #### TREP, B12FOL ####[address] [place] [address] PlateletsNOT REPORTEDNoCrystal Clinic Orthopedic CenterComment on above:Performed By: #### CDP, CMPX ####[address] [address] #### TREP, B12FOL ####[address] [address] WBC Morphology NOT REPORTEDNoCrystal Clinic Orthopedic CenterComment on above:Performed By: #### CDP, CMPX ####[address] [address] #### TREP, B12FOL ####[address] [address] Comp Metabolic Pr/rfx MGon 87-07-4892Luxtcyphx aminotransferase (AST)37 U/LHigh<32[facility] HospitalComment on above: Performed By: #### CDP, CMPX ####[address] [address] #### TREP, B12FOL ####[facility] F[address]50 [place] [address] (cont.)NormalKettering Memorial Hospital Comment on above:Result Comment: Average GFR for 50-59 years old: 93 mL/min/1.73sq mChronic Kidney Disease: <60 mL/min/1.73sq mKidney failure: <15 mL/min/1.73sq meGFR calculated using average adult body mass. Additional eGFR calculator available at:http://www.[employer].com/multiple_crcl_2011.htmPerformed at [facility] [address] [place] [phone] By: #### CDP, CMPX ####[address] [address] #### TREP, B12FOL ####[address] [place] [address] Alanine aminotransferase (ALT)20 U/LNormal5-33[facility] HospitalComment on above:Performed By: #### CDP, CMPX ####[address] [address] #### TREP, B12FOL ####[address] [place] [address] Pdzykuy7.2 g/dLNormal3.5-5.2[facility] Comment on above:Performed By: #### CDP, CMPX ####[address] [address] #### TREP, B12FOL ####[address] [place] [address] Alkaline Phos21 U/LLow 35-104MerCleveland Clinic Fairview HospitalComment on above:Performed By: #### CDP, CMPX ####[address] [address] #### TREP, B12FOL ####[address] [place] [address] Anion gap12 mmol/LNormal9-17[facility] HospitalComment on above:Performed By: #### CDP, CMPX ####[address] [place] [address] #### TREP, B12FOL ####[facility] [address]jnb[address]vw8072 [place] [address] Bilirubin Ql (U)0.28 mg/dLLow0.3-1.2MMain Campus Medical CenterComment on above:Performed By: #### CDP, CMPX ####[address] [address] #### TREP, B12FOL ####[address] [place] [address] Gqqhjku2.7 mg/dLNormal8.6-10.4[facility] HospitalComment on above:Performed By: #### CDP, CMPX ####[address] [address] #### TREP, B12FOL ####[address] [place] [address] Rtknkyrb683 mmol/TQcsvjd30-705CcynyKettering Memorial Hospital Comment on above:Performed By: #### CDP, CMPX ####[address] [address] #### TREP, B12FOL ####[facility] [address]54 [place] [address] WO222 mmol/JFtscbt18-35 [facility] HospitalComment on above:Performed By: #### CDP, CMPX ####[address] [address] #### TREP, B12FOL ####[facility] [place] [address] Creatinine1.16 mg/dLHigh0.50-0.90[facility] HospitalComment on above: Performed By: #### CDP, CMPX ####[address] [address] #### TREP, B12FOL ####[address] [place] [address] eGFR (non-black)48 mL/min/{1.73_m2}Low>60 [facility] HospitalComment on above:Performed By: #### CDP, CMPX ####[address] [address] #### TREP, B12FOL ####[address] [place] [address] eGFR (non-black)58 mL/min/{1.73_m2}Low>60[facility] HospitalComment on above:Performed By: #### CDP, CMPX ####[address] [address] #### TREP, B12FOL ####[address] [place] [address] Glucose mass cbyi426 mg/pUEflo78-03Xhfxs [facility] CenterComment on above:Performed By: #### CDP, CMPX ####[address] [address] #### TREP, B12FOL ####[address] [place] [address] Potassium molar conc3.8 mmol/LNormal3.7-5.3[facility] Health CenterComment on above: Performed By: #### CDP, CMPX ####[address] [address] #### TREP, B12FOL ####[address] [place] [address] Bburohb7.9 g/dLNormal6.4-8.3[facility] Health CenterComment on above:Performed By: #### CDP, CMPX ####[address] [address] #### TREP, B12FOL ####[facility] [address] [place] [address] Besvsb432 mmol/HFnpety549-574CtfbwCleveland Clinic Fairview HospitalComment on above:Performed By: #### CDP, CMPX ####[address] [address] #### TREP, B12FOL ####[address] [address] Urea qoydgkve59 mg/dLHigh6-20[facility] Comment on above:Performed By: #### CDP, CMPX ####[address] [address] #### TREP, B12FOL ####[address] [address] Albumin/Globulin Ratio NOT REPORTEDNormal1.0-2.5MerCleveland Clinic Fairview HospitalComment on above:Performed By: #### CDP, CMPX ####[address] [address] #### TREP, B12FOL ####[facility] [place] [address] BUN/CRE RatioNOT REPORTEDNormal9-20[facility] HospitalComment on above:Performed By: #### CDP, CMPX ####[address] [address] #### TREP, B12FOL ####[address] [address] Staging:NOT REPORTEDNoCrystal Clinic Orthopedic CenterComment on above:Performed By: #### CDP, CMPX ####[address] [phone]#### TREP, B12FOL ####[address] [address] T.pallidum Ab Screenon 11-09-2017T.pallidum Ab Screen NONREACTIVEGeorgetown Behavioral HospitalComascension borgess-pipp hospital on above:Result Comment: T. pallidum antibodies are not detected.There is no serological evidence of infection with T. pallidum (early primary syphilis cannot be excluded). Retest in 2-4 weeks if syphilis is clinically suspect.Performed at [address] [address] Performed By: #### CDP, CMPX ####[address] [address] #### TREP, B12FOL ####[address] [address] CBC with Diffon 33-29-7077Zgx. Basophil0.00 k/uLNormal0.0-0.2MercMarymount HospitalComment on above:Result Comment: Performed at [address] [address] Performed By: #### CDP, CP ####[address] [phone]#### GLYHGB ####[address] [address] Abs.Neutrophil (Seg)4.20 k/uLNormal1.3-9.1MercMarymount HospitalComment on above:Performed By: #### CDP, CP ####[address] [address] #### GLYHGB ####[address] [address] Basophils/100 WBC Auto (Bld)1 %Normal0-2MMain Campus Medical CenterComment on above:Performed By: #### CDP, CP ####[address] [address] #### GLYHGB ####[address] [address] Svbejlzftna5.10 10*3/uLNormal0.0-0.4[facility] Comment on above:Performed By: #### CDP, CP ####[address] [address] #### GLYHGB ####[address] [address] Eosinophils/100 leukocytes2 %Normal0-4 [facility] Hospitalment on above:Performed By: #### CDP, CP ####[address] [address] #### GLYHGB ####[address] [address] Erythrocyte distribution width Auto Ratio (RBC)13.8 %Curnyq96.5-14.9[facility] Hospitalment on above:Performed By: #### CDP, CP ####[address] [address] #### GLYHGB ####[address] [address] Erythrocytes (RBC)4.27 10*6/uLNormal4.0-5.2MMain Campus Medical CenterComment on above:Performed By: #### CDP, CP ####[address] [address] #### GLYHGB ####[address] [place] [address] Hematocrit (HCT)40.3 %Wjkwbz85-83OdayzKettering Memorial Hospital Comment on above:Performed By: #### CDP, CP ####[address] [address] #### GLYHGB ####[address] [address] Hemoglobin mass conc (Bld)13.8 g/dLNormal 12.0-16.0[facility] HospitalComment on above:Performed By: #### CDP, CP ####[address] [address] #### GLYHGB ####[address] [address] Lymphocytes2.00 10*3/uLNormal1.0-4.8[facility] HospitalComment on above: Performed By: #### CDP, CP ####[address] [address] #### GLYHGB ####[address] [place] [address] Lymphocytes/100 mvegmqiijc60 %Lqwtbf20-41VtcsjKettering Memorial HospitalComment on above:Performed By: #### CDP, CP ####[address] [address] #### GLYHGB ####[address] [place] [address] ABG67.4 pg Aosybt95-37UuhryKettering Memorial HospitalComment on above:Performed By: #### CDP, CP ####[facility] [place] [phone]#### GLYHGB ####[facility] [address] [place] [address] MCHC mass conc (RBC)34.3 g/bXSdcepd52-02TvjsoKettering Memorial HospitalComment on above:Performed By: #### CDP, CP ####[address] [address] #### GLYHGB ####[facility] [place] [address] PAA89.4 jOKvyzpp38-790 [facility] HospitalComment on above:Performed By: #### CDP, CP ####[address] [address] #### GLYHGB ####[address] [place] [address] Pwrpccqpt0.80 10*3/uLNormal0.1-1.3MMain Campus Medical CenterComment on above:Performed By: #### CDP, CP ####[address] [address] #### GLYHGB ####[facility] [place] [address] Monocytes/100 kovgcelnlr90 %High1-7[facility] Comment on above:Performed By: #### CDP, CP ####[facility] [place] [address] #### GLYHGB ####[facility] [place] [phone] (Seg)57 %Wbdjis90-49JnxlbOhioHealth Dublin Methodist Hospitalment on above:Performed By: #### CDP, CP ####[address] [address] #### GLYHGB ####[address] [place] [address] Platelet mean volume (PMV)8.6 fLNormal6.0-12.0[facility] on above: Performed By: #### CDP, CP ####[address] [address] #### GLYHGB ####[address] [phone] 10*3/pMIlaxby277-186RzwrmDayton VA Medical Center on above:Performed By: #### CDP, CP ####[address] [address] #### GLYHGB ####[address] [place] [address] WBC (Leukocytes)7.1 10*3/uLNormal3.5-11.0[facility] on above: Performed By: #### CDP, CP ####[address] [address] #### GLYHGB ####[address] [place] [address] Auto Diff PerformedNOT REPORTEDBrown Memorial Hospital on above:Performed By: #### CDP, CP ####[address] [address] #### GLYHGB ####[address] [place] [address] Erythrocyte morphologyNOT REPORTEDNoTogus VA Medical Centerment on above:Performed By: #### CDP, CP ####[address] [address] #### GLYHGB ####[address] [address] Erythrocytes (RBC)NOT REPORTEDNoCrystal Clinic Orthopedic Center Comment on above:Performed By: #### CDP, CP ####[address] [address] #### GLYHGB ####[address] [address] Granulocytes/100 WBC (Bld)NOT REPORTED Normal0.00-0.30[facility] on above:Performed By: #### CDP, CP ####[address] [address] #### GLYHGB ####[address] [address] Immature granulocytes #/vol (Bld)NOT WVUFTUCAJbeyzt7Dpmxu24 Joseph Streetment on above:Performed By: #### CDP, CP ####[address] [address] #### GLYHGB ####[address] [address] PlateletsNOT REPORTEDNoReg[facility] Hospital [facility] on above:Performed By: #### CDP, CP ####[address] [phone]#### GLYHGB ####[address] [phone] MorphologyNOT REPORTEDNormalKettering Memorial Hospital Comment on above:Performed By: #### CDP, CP ####[address] [address] #### GLYHGB ####[address] [phone] Metabolic Profon 2017(cont.) NormalKettering Memorial HospitalComment on above:Result Comment: Average GFR for 50-59 years old: 93 mL/min/1.73sq mChronic Kidney Disease: <60 mL/min/1.73sq mKidney failure: <15 mL/min/1.73sq meGFR calculated using average adult body mass. Additional eGFR calculator available at:http://www.[employer]/multiple_crcl_2011.htmPerformed at [address] [place] [address] [phone] By: #### BREANA, CP ####[address] [address] #### GLYHGB ####[address] [place], [place] [phone] aminotransferase (ALT)13 U/LNormal5-33[facility] HospitalComment on above:Performed By: #### CDP, CP ####[address] [address] #### GLYHGB ####[address] [place], [place] [phone] g/dLNormal3.5-5.2MMain Campus Medical CenterComment on above:Performed By: #### CDP, CP ####[address] [address] #### GLYHGB ####[address] [address] Alkaline Phos23 U/CZvt24-486NgknhKettering Memorial HospitalComment on above:Performed By: #### CDP, CP ####[address] [address] #### GLYHGB ####[address] [address] Anion gap12 mmol/LNormal9-17[facility] HospitalComment on above:Performed By: #### CDP, CP ####[address] [address] #### GLYHGB ####[address] [address] Aspartate aminotransferase (AST)17 U/LNormal<32MerCleveland Clinic Fairview HospitalComment on above: Performed By: #### CDP, CP ####[address] [address] #### GLYHGB ####[address] [address] Bilirubin Ql (U)0.36 mg/dLNormal0.3-1.2MMain Campus Medical CenterComment on above:Performed By: #### CDP, CP ####[address] [address] #### GLYHGB ####[address] [address] Vfshomj0.9 mg/dLNormal8.6-10.4[facility] HospitalComascension borgess-pipp hospital on above:Performed By: #### CDP, CP ####[address] [address] #### GLYHGB ####[facility] [place] [address] Iquvmguj892 mmol/QAebzah42-253OjxlzKettering Memorial Hospital Comment on above:Performed By: #### CDP, CP ####[facility] [place] [address] #### GLYHGB ####[address] [place] [address] YU081 mmol/OGlrcxw03-53KugwiKettering Memorial HospitalComment on above:Performed By: #### CDP, CP ####[address] [place] [address] #### GLYHGB ####[address] [address] Whbcteqfxs9.00 mg/dLHigh 0.50-0.90[facility] HospitalComment on above:Performed By: #### CDP, CP ####[facility] [place] [address] [place] [address] #### GLYHGB ####[address] [place] [address] eGFR (non-black)mL/min/{1.73_m2}Normal>60[facility] HospitalComment on above: Performed By: #### CDP, CP ####[address] [place] [address] #### GLYHGB ####[facility] [address] [place] [address] eGFR (non-black)57 mL/min/{1.73_m2}Low>60[facility] HospitalComment on above:Performed By: #### CDP, CP ####[address] [place] [address] #### GLYHGB ####[address] [place] [address] Glucose mass conc95 mg/nMFhuctt63-35Cefqh [facility] HospitalComment on above:Performed By: #### CDP, CP ####[address] [address] #### GLYHGB ####[address] [place] [address] Potassium molar conc4.3 mmol/LNormal3.7-5.3[facility] HospitalComment on above:Performed By: #### CDP, CP ####[address] [address] #### GLYHGB ####[address] [address] Bsnldww9.8 g/dLNormal 6.4-8.3[facility] HospitalComment on above:Performed By: #### CDP, CP ####[address] [address] #### GLYHGB ####[address] [place] [address] Sodium 141 mmol/VKlvxng164-759Ptjzi [facility] HospitalComment on above:Performed By: #### CDP, CP ####[address] [address] #### GLYHGB ####[address] [place] [address] Urea dyxwtzre08 mg/dLHigh6-20[facility] HospitalComment on above:Performed By: #### CDP, CP ####[address] [address] #### GLYHGB ####[address] [place] [address] Albumin/Globulin RatioNOT REPORTEDNormal1.0-2.5 [facility] on above:Performed By: #### CDP, CP ####[address] [address] #### GLYHGB ####[address] [address] BUN/CRE Ratio NOT REPORTEDNormal9-20[facility] on above:Performed By: #### CDP, CP ####[address] [address] #### GLYHGB ####[address] [address] Staging:NOT REPORTEDNormalDayton VA Medical Center on above:Performed By: #### CDP, CP ####[address] [address] #### GLYHGB ####[address] [phone] A1Con 50-58-6441Iepgnar mass conc94 mg/dLNoRegency Hospital [facility] West on above:Result Comment: The ADA and AACC recommend providing the estimated average glucose result to permit better patient understanding of their HBA1c result.Performed at [address] [place] [address] Performed By: #### CDP, CP ####[address] [address] #### GLYHGB ####[address] [address] Hemoglobin A1c/Hemoglobin.total mass fraction (Bld)4.9 %Normal 4.0-6.0[facility] HospitalComment on above:Performed By: #### CDP, CP ####[address] [address] #### GLYHGB ####[address] [place] [address] Valproic Acidon 35-07-1771Wybqzmod Acid56 ug/tIAncqwm92-320IorpcKettering Memorial HospitalComment on above:Performed By: #### VALPC ####[address] [phone] last dose,167751 NormalKettering Memorial HospitalComment on above:Performed By: #### VALPC ####[address] [phone] ustthi407KkfudzQrsytKettering Memorial HospitalComment on above:Performed By: #### VALPC ####[address] [address] Time last dose,0842NormChillicothe VA Medical CenterComment on above:Result Comment: Performed at [address] [address] [phone] By: #### VALPC ####[address] [address] Vital Signs Date TimeVital SignValuePerforming KudqipamsPwiqrvtd49-01-2268 14:56-0400Body .02 cmSanta Augustin MD Work Phone: [facility]10-13-2025 14:56-0400 Body mass index (BMI) [Ratio]27.6 kg/p3IjefmfSanta Augustin MD Work Phone: [facility]10-13-2025 14:56-0400 Body vwguccmrief54.7 [degF]Santa Augustin MD Work Phone: [phone] [place], [place] 3479710-13-2025 14:56-0400 Body .93 kgSanta Augustin MD Work Phone: [phone] [place], [place] 3479710-13-2025 14:56-0400 Diastolic blood aygpbmia97 mm[Hg]Santa Augustin MD Work Phone: [phone] [place], [place] 3479710-13-2025 14:56-0400 Heart rate76 /Marielos Augustin MD Work Phone: [phone] [place], [place] 3479710-13-2025 14:56-0400 Respiratory rate18 /Marielos Augustin MD Work Phone: [phone] [place], [place] 3479710-13-2025 14:56-0400 SaO2% (BldA) [Mass fraction]99 %Santa Augustin MD Work Phone: [phone] [place], [place] 3479710-13-2025 14:56-0400 Systolic blood mm[Hg]Santa Augustin MD Work Phone: [phone] [place], [place] 3479710-08-2025 09:42-0400 Body tgalfs058.02 cmSanta Augustin MD Work Phone: [phone] [place], [place] 3479710-08-2025 09:42-0400 Body mass index (BMI) [Ratio]26.5 kg/a4KjoubdSanta Augustin MD Work Phone: [phone] [place], [place] 3479710-08-2025 09:42-0400 Body tmodqbwnlxo87.4 [degF]Santa Augustin MD Work Phone: [phone] [place], [place] 3479710-08-2025 09:42-0400 Body dzorzn05.03 kgSanta Augustin MD Work Phone: [phone])[address] [place], [place] 3479710-08-2025 09:42-0400 Diastolic blood qpmpkuue18 mm[Hg]Santa Augustin MD Work Phone: [phone] [place], [place] 3479710-08-2025 09:42-0400 Heart rate73 /Marielos Augustin MD Work Phone: [facility]10-08-2025 09:42-0400 Respiratory rate18 /Marielos Augustin MD Work Phone: [facility]10-08-2025 09:42-0400 SaO2% (BldA) [Mass fraction]99 %Santa Augustin MD Work Phone: [facility]10-08-2025 09:42-0400 Systolic blood thyqhdht221 mm[Hg]Santa Augustin MD Work Phone: [facility]10-01-2025 14:16-0400 Body citplc822 cmAhmad Niru DIAZ Work Phone: [phone]10-01-2025 14:16-0400Body mass index (BMI) [Ratio]27.46 kg/k3KvusjXena Marrufo MD Work Phone: [phone] [place], [place] 2564610-01-2025 14:16-0400Body .31 kgXena Marrufo MD Work Phone: [phone]10-01-2025 14:16-0400Diastolic blood tcpedqpl01 mm[Hg]Xena Marrufo MD Work Phone: [phone] [place], [place] [address]Bmnwqjojlp75-83-5725 14:16-0400Heart rate72 /min Xena Marrufo MD Work Phone: [phone] [place], [place] [address]Crgbqynfkh24-74-3183 14:16-0400Respiratory rate16 /minXena Marrufo MD Work Phone: [phone] [place], [place] [address]Wqthdhiqlu73-82-4613 14:16-1800HnS3% (BldA) [Mass fraction]96 %Xena Marrufo MD Work Phone: [phone] [place], [place] [address]Hljiovjqmo00-72-3302 14:16-0400Systolic blood mm[Hg]Xena Marrufo MD Work Phone: [phone]09-15-2025 13:57-0400Body .02 cmSanta Augustin MD Work Phone: [facility]09-15-2025 13:57-0400 Body mass index (BMI) [Ratio]27.6 kg/f3WjjrpjSanta Augustin MD Work Phone: [facility]09-15-2025 13:57-0400 Body .76 kgSanta Augustin MD Work Phone: [phone]09-15-2025 13:57-0400 Diastolic blood edhudtqz98 mm[Hg]Santa Augustin MD Work Phone: [phone]09-15-2025 13:57-0400 Heart rate71 /minSanta Augustin MD Work Phone: [facility]09-15-2025 13:57-0400 Systolic blood kagjqjld225 mm[Hg]Santa Augustin MD Work Phone: [phone]08-21-2025 10:49-0400 Body dywpgx649 [address]08-21-2025 10:49-0400Body mass index (BMI) [Ratio]27.46 kg/m2Pmh [address] [place], [place] 9325808-21-2025 10:49-0400 Body lwgdip19.[address] [place], [place] 9325808-08-2025 11:58-0400Body height 160 cmJeesaujeimy Penaloza PHARMACY AIDE-SURGICAL CODER Work Phone: [facility]08-08-2025 11:58-0400Body mass index (BMI) [Ratio]27.28 kg/i0Efssembjeimy Penaloza PHARMACY AIDE-SURGICAL CODER Work Phone: [facility]08-08-2025 11:58-0400Body qqvaan29.85 kgRadha Penaloza PHARMACY AIDE-SURGICAL CODER Work Phone: [facility]08-08-2025 11:58-0400Diastolic blood qhbnkeho87 mm[Hg]Radha Penaloza PHARMACY AIDE-SURGICAL CODER Work Phone: [facility]08-08-2025 11:58-0400Systolic blood mamjmlxn807 mm[Hg]Radha PINEDA Work Phone: [facility]06-09-2025 15:39-0400Body xplxim667 cmBenchris Murjuank DO Work Phone: [facility]fieldKbkufljjmq57-79-9751 15:39-0400Body mass index (BMI) [Ratio]27.46 kg/q2Tasfbnvw Murcek DO Work Phone: [facility] springfieldVetwanccet38-26-0763 15:39-0400Body .31 kgBenchris Pinedak DO Work Phone: [facility] springfieldVqycrtcnel24-44-3258 12:54-0400Diastolic blood nuqbpekc41 mm[Hg]Santa Augustin MD Work Phone: [phone]06-02-2025 12:54-0400 Heart rate80 /Marielos Augustin MD Work Phone: [phone]06-02-2025 12:54-0400 Respiratory rate16 /Marielos Augustin MD Work Phone: [phone]06-02-2025 12:54-0400 SaO2% (BldA) [Mass fraction]96 %Santa Augustin MD Work Phone: [phone]06-02-2025 12:54-0400 Systolic blood usjcnlbd034 mm[Hg]Santa Augustin MD Work Phone: [phone]06-02-2025 10:22-0400 Body vzqfkpbukxw90.2 [degF]Santa Augustin MD Work Phone: [phone]06-02-2025 10:22-0400 Inhaled oxygen flow rate10 L/minSanta Augustin MD Work Phone: [phone]06-02-2025 07:10-0400 Body cregdx619.02 cmSanta Augustin MD Work Phone: [facility]06-02-2025 07:10-0400 Body amltxx17 kgSanta Augustin MD Work Phone: [facility]05-12-2025 14:31-0400 Body tcfgaa643 cmBenflorymin Murcek DO Work Phone: [facility] springfieldKyxacgudix48-40-2540 14:31-0400Body mass index (BMI) [Ratio]27.63 kg/j0Esqcgocr Murcek DO Work Phone: [facility] springfieldRzigtjhxcd47-20-2190 14:31-0400Body vhnexh18.76 kgBenflorymin Murcek DO Work Phone: [facility] springfieldWgtjuhkwlr19-60-7426 14:29-0400Body ncnieq158 cm Conrad Murcek DO Work Phone: [facility] springfieldOdpinebqvw33-35-6131 14:29-0400Body mass index (BMI) [Ratio]27.81 kg/x0Riyfwkxf Murcek DO Work Phone: [facility] springfieldPgkvcroczx15-47-5586 14:29-0400Body .22 kgBenjamin Murcek DO Work Phone: [facility] springfieldTcdoinlmei42-77-8911 15:45-0400Body apksli016.02 cmFairfield Medical Center04-16-2025 15:45-0400Body mass index (BMI) [Ratio]27.4 kg/q8QsbzezmirFairfield Medical Center04-16-2025 15:45-0400Body nseubd13.3 kgFairfield Medical Center04-16-2025 15:45-0400Diastolic blood dmyapppk21 mm[Hg][facility]04-16-2025 15:45-0400 Heart rate66 /[facility]04-16-2025 15:45-0400 Respiratory rate16 /[facility]04-16-2025 15:45-0400 SaO2% (BldA) [Mass fraction]99 %[facility] [facility]04-16-2025 15:45-0400Systolic blood xgizushk798 mm[Hg][facility] 08-29-2024 14:05-0400Body oxagjb303 Susannah Marrufo MD Work Phone: 1(488)[address] [place], [place] 2564603-26-2025 14:05-0400Body mass index (BMI) [Ratio]27.81 kg/j0UvdqnXena Marrufo MD Work Phone: 1(895)[facility] [place], [place] [address]Gqmowbhmdr62-18-0266 14:05-0400Body nzpeqm65.22 kgXena Marrufo MD Work Phone: 1(052)[facility] [place], [place] [address]Qjsudcslie14-63-4454 14:05-0400Diastolic blood mm[Hg]Xena Marrufo MD Work Phone: 1(680)[facility] [place], [place] [address]Jcdrgudrzv23-07-1891 14:05-0400Heart rate77 /min Xena Marrufo MD Work Phone: 1(020)[facility] [place], [place] [address]Flrzukmrtj33-32-1681 14:05-0400Respiratory rate16 /minXena Marrufo MD Work Phone: 1(932)[facility] [place], [place] [address]Fhzzbimvlo73-06-4688 14:05-2148QvI6% (BldA) [Mass fraction]98 %Xena Marrufo MD Work Phone: 1(393)[address] [place], [place] 2564603-26-2025 14:05-0400Systolic blood fyswhwkt203 mm[Hg]Xena Marrufo MD Work Phone: 1(840)[address] [place], [place] 2564610-29-2024 08:33-0400Body xtuedj756.02 cm[facility]10-29-2024 08:33-0400Body mass index (BMI) [Ratio]27.1 kg/c0FwkdqwwbhFairfield Medical Center10-29-2024 08:33-0400Body kresccmwdkx56.6 [degF][facility]10-29-2024 08:33-0400Body .56 kg[facility]10-29-2024 08:33-0400Diastolic blood wbttadrl82 mm[Hg][facility]10-29-2024 08:33-0400 Heart rate78 /[facility]10-29-2024 08:33-0400 Respiratory rate16 /[facility]10-29-2024 08:33-0400 SaO2% (BldA) [Mass fraction]99 %[facility]10-29-2024 08:33-0400Systolic blood faetseap917 mm[Hg][facility] 10-08-2023 18:48-0400Body mass index (BMI) [Ratio]29.26 kg/k5SgeoifRylie Griffin DO Work Phone: [phone]05-04-2024 18:48-0400Body rfgvbydisag91.4 [degF]Rylie Griffin DO Work Phone: [phone]05-04-2024 18:48-0400Body pabwks55.58 kgRylie Griffin DO Work Phone: [phone])3681000[employer]05-04-2024 18:48-0400Diastolic blood kmeoaokw54 mm[Hg]Rylie Griffin DO Work Phone: [phone]05-04-2024 18:48-0400Heart rate58 /Homer Elias DO Work Phone: [employer]05-04-2024 18:48-0400 Respiratory rate18 /Homer Griffin DO Work Phone: [phone])3681000[employer]05-04-2024 18:48-8766BrO8% (BldA) [Mass fraction]99 %Rylie Griffin DO Work Phone: [phone]05-04-2024 18:48-0400Systolic blood apowhvjo812 mm[Hg]Rylie Griffin DO Work Phone: [phone]04-15-2024 16:34-0400Body tgvzah754.02 cm[facility]04-15-2024 16:34-0400Body mass index (BMI) [Ratio]27.1 kg/l2WtzcbwzroFairfield Medical Center04-15-2024 16:34-0400Body cnbjmfhafqc01.6 [degF][facility]04-15-2024 16:34-0400Body kklsdo04.39 kgFair[facility] Center04-15-2024 16:34-0400Heart rate72 /[facility]04-15-2024 16:34-0400Respiratory rate16 /[facility]04-15-2024 16:34-6554PlM9% (BldA) [Mass fraction]100 %[facility] 09-05-2023 15:00-0400Body uvsdbp231 cmRadha Penaloza PHARMACY AIDE-SURGICAL CODER Work Phone: [facility] Fszskh51-98-9708 15:00-0400Body mass index (BMI) [Ratio]27.32 kg/n7VvapmrfRadha Penaloza PHARMACY AIDE-SURGICAL CODER Work Phone: [facility] [employer] Uhklro58-69-7536 15:00-0400Body .94 kgRadha Penaloza PHARMACY AIDE-SURGICAL CODER Work Phone: [facility] Igguhm65-91-3652 15:00-0400Diastolic blood giksjffm36 mm[Hg]Radha Penaloza PHARMACY AIDE-SURGICAL CODER Work Phone: [facility] Kfyxsy93-45-4496 15:00-0400Heart rate 135 /minRadha Penaloza PHARMACY AIDE-SURGICAL CODER Work Phone: [facility] Iummtb57-91-3548 15:00-0400Systolic blood iozdbxlf371 mm[Hg]Radha Penaloza PHARMACY AIDE-SURGICAL CODER Work Phone: [facility] Mgqdvj73-01-3443 09:30-0500Body jxkhqa451.02 cmSanta Augustin Other [facility]01-31-2024 09:30-0500 Body mass index (BMI) [Ratio]26.75 kg/n5WhdhksSanta Augustin Other [place] [employer] Other 01-31-2024 09:30-0500Body povaqp12.49 kgSanta Augustin Other [facility]01-31-2024 09:30-0500 Diastolic blood xowoeoff60 mm[Hg]Santa Demetria Other [facility]01-31-2024 09:30-0500 Systolic blood bjorjchg883 mm[Hg]Santa Augustin Other [facility]10-18-2023 16:40-0400 Body .02 cmAbdul Maria Dolores Other [employer] Other 10-18-2023 16:40-0400Body mass index (BMI) [Ratio] 26.92 kg/g3Txobu Maria Dolores Other [employer] Other 10-18-2023 16:40-0400Body tylouaceago70.4 [degF]Zachary Maria Dolores Other [employer] Other 10-18-2023 16:40-0400Body dneavs87.95 kgAbdul Maria Dolores Other [employer] Other 10-18-2023 16:40-0400Diastolic blood irgbrgvr65 mm[Hg] Zachary Maria Dolores Other [employer] Other 10-18-2023 16:40-0400Respiratory rate18 /minAbdul Maria Dolores Other [employer] Other 10-18-2023 16:40-0766FhT7% (BldA) [Mass fraction]96 % Zachary Maria Dolores Other [employer] Other 10-18-2023 16:40-0400Systolic blood mm[Hg] Zachary Maria Dolores Other [employer] Other 08-17-2023 15:15-0400Body bkpzvo056.02 cmSanta Augustin Other [employer] Other 08-17-2023 15:15-0400Body mass index (BMI) [Ratio] 26.21 kg/a0Qhrnaa Demetria Other [employer] Other 08-17-2023 15:15-0400Body ifglwl17.13 kgSanta Demetria Other [employer] Other 08-17-2023 15:15-0400Diastolic blood ugcabgxd64 mm[Hg] Santa Demetria Other [employer] Other 08-17-2023 15:15-0400Systolic blood qkqbucih945 mm[Hg] Santa Demetria Other [employer] Other 06-13-2023 14:40-0400Body irhglz716.02 cmAbdul Maria Dolores Other [employer] Other 06-13-2023 14:40-0400Body mass index (BMI) [Ratio] 27.77 kg/m0Vsfjc Maria Dolores Other [employer] Other 06-13-2023 14:40-0400Body xeqtqahdift35.7 [degF]Zachary Maria Dolores Other [employer] Other 06-13-2023 14:40-0400Body aadeaf76.12 kgAbdul Maria Dolores Other [employer] Other 06-13-2023 14:40-0400Diastolic blood ubyryayb80 mm[Hg] Zachary Maria Dolores Other [employer] Other 06-13-2023 14:40-0400Respiratory rate18 /minAbdul Maria Dolores Other [employer] Other 06-13-2023 14:40-7371GzZ9% (BldA) [Mass fraction]99 % Zachary Maria Dolores Other [employer] Other 06-13-2023 14:40-0400Systolic blood coolsofl536 mm[Hg] Zachary Maria Dolores Other [employer] Other 12-01-2022 10:40-0500Body kicsfj839.02 cmAbdul Maria Dolores Other [employer] Other 12-01-2022 10:40-0500Body mass index (BMI) [Ratio] 27.42 kg/w1Nsvam Maria Dolores Other [employer] Other 12-01-2022 10:40-0500Body buuxpm47.22 kgAbdul Maria Dolores Other [employer] Other 12-01-2022 10:40-0500Diastolic blood jddsodke73 mm[Hg] Zachary Maria Dolores Other [employer] Other 12-01-2022 10:40-0500Respiratory rate18 /minAbdul Maria Dolores Other [employer] Other 12-01-2022 10:40-2492ZlM6% (BldA) [Mass fraction]99 % Zachary Maria Dolores Other [facility] [employer] Other [id number] 10:40-0500Systolic blood ybrnyqqh765 mm[Hg] Zachary Maria Dolores Other [facility] [employer] Other 727837-35-0424 07:30-0400Body eztmuzubtxk94.9 [degF]MD Santa Augustin Work Phone: [phone]58[facility]10-18-2022 07:30-0400 Diastolic blood mm[Hg]MD Santa Augustin Work Phone: 1(316)[address]10-18-2022 07:30-0400 Heart rate90 /minMD Santa Augustin Work Phone: 1(375)[address]10-18-2022 07:30-0400 SaO2% (BldA) [Mass fraction]97 %MD Santa Augustin Work Phone: 1(916)[address]10-18-2022 07:30-0400 Systolic blood kulxhyxt857 mm[Hg]MD Santa Augustin Work Phone: 1(560)[address]10-17-2022 22:24-0400 Respiratory rate16 /minMD Santa Augustin Work Phone: 1(946)[address]10-17-2022 09:00-0400 Body sejzgz24.93 kgMD Santa Augustin Work Phone: 1(935)[address]10-13-2022 09:21-0400 Body .02 cmMD Santa Augustin Work Phone: 1(638)[address]10-06-2022 23:31-0400 Body xuaznimpppx90.2 [degF]MD Santa Augustin Work Phone: 1(187)323-[address] [place], [place] 2397610-06-2022 23:31-0400 Diastolic blood bjjlymzg14 mm[Hg]MD Santa Augustin Work Phone: [phone]10-06-2022 23:31-0400 Heart rate76 /minMD Santa Augustin Work Phone: 1(087)773-[address] [place], [place] 2397610-06-2022 23:31-0400 Respiratory rate18 /minMD Santa Augustin Work Phone: [phone]81[facility]10-06-2022 23:31-0400 SaO2% (BldA) [Mass fraction]100 %MD Santa Augustin Work Phone: 1(746)[address]10-06-2022 23:31-0400 Systolic blood ijkiitnl152 mm[Hg]MD Santa Augustin Work Phone: 1(487)[address]10-06-2022 18:16-0400 Body drrmum861.02 cmMD Santa Augustin Work Phone: 1(918)[address]10-06-2022 18:16-0400 Body aixgqf54 kgMD Santa Augustin Work Phone: 1(087)[address]04-11-2022 15:34-0400 Body ekznxs672 cmUpchristian Adames MD Work Phone: 1(461) [phone]cknvl74-20-1537 15:34-0400Body mass index (BMI) [Ratio]27.63 kg/y7Ckblhelchristian Adames MD Work Phone: 1(460) [phone]qmdeh56-86-5773 15:34-0400Body upzzfu37.76 kg Gerald Adames MD Work Phone: 1(919) [phone]suwhk29-26-4198 15:34-0400Diastolic blood mm[Hg]Gerald Adames MD Work Phone: 1(626) 530-9815195-6651GfxaImzmtm42-756365JqzwTcuxbc35-06-5626 15:34-0400Heart rate69 /min Gerald Adames MD Work Phone: 1(714) [phone]nvwBjkbtq37-32-1085 15:34-0400Respiratory rate16 /min Gerald Adames MD Work Phone: 1(156) [phone]covJrgcow37-99-5902 15:34-6573OlM1% (BldA) [Mass fraction]97 %Gerald Adames MD Work Phone: 1(913) [phone]ixooh98-74-3417 15:34-0400Systolic blood pressure 132 mm[Hg]Gerald Adames MD Work Phone: 1(882) [phone]nosij32-14-0703 16:25-0500Body ittbrk105.02 cm Geneva Naik Other [employer] Other 12-01-2021 16:25-0500Body mass index (BMI) [Ratio] 29.05 kg/m1TnljfqGeneva Naik Other [employer] Other 12-01-2021 16:25-0500Body eicqsskhwpe57.6 [degF]Geneva Naik Other [employer] Other 12-01-2021 16:25-0500Body tcigxb50.39 kgJoeyantwon Heena Other [employer] Other 12-01-2021 16:25-0500Diastolic blood lwboakdc85 mm[Hg] Geneva Heena Other [employer] Other 12-01-2021 16:25-0500Respiratory rate18 /minGeneva Naik Other [employer] Other 12-01-2021 16:25-4181MwZ9% (BldA) [Mass fraction]100 % Geneva Naik Other [employer] Other 12-01-2021 16:25-0500Systolic blood kuirjaft520 mm[Hg] Geneva Naik Other [employer] Other 10-27-2021 16:40-0400Body cojzot035.02 cmAbdul Maria Dolores Other [employer] Other 10-27-2021 16:40-0400Body mass index (BMI) [Ratio] 29.37 kg/i0Jdmea Maria Dolores Other [employer] Other 10-27-2021 16:40-0400Body tndloqaaloc06.1 [degF]Zachary Maria Dolores Other [employer] Other 10-27-2021 16:40-0400Body ooyxvv37.21 kgAbdul Maria Dolores Other [employer] Other 10-27-2021 16:40-0400Diastolic blood hlpmantt02 mm[Hg] Zachary Maria Dolores Other [employer] Other 10-27-2021 16:40-0400Respiratory rate18 /minAbdul Maria Dolores Other [employer] Other 10-27-2021 16:40-9568KtQ0% (BldA) [Mass fraction]98 % Zachary Maria Dolores Other [employer] Other 10-27-2021 16:40-0400Systolic blood kisxjuvy248 mm[Hg] Zachary Maria Dolores Other [employer] Other 03-19-2021 14:30-0400BMI (Body Mass Index)26.57 kg/m2 Upender YjjxgcGsxcDmhywk87-01-3052 14:30-0400Body siqzsu41.04 kgUpender Geh[place] FkvtQsvzhi68-25-3919 14:30-0681Ncxnpl726 cmUpender [facility] HospitalotOEast [facility] City Hospitalealth Encounters Encounter DateEncounter TypeCare ProviderFacilityStart: 03-18-2025 End: 45-15-3271hnqhaqrzalVyfuyt E Braun MD Work Phone: [facility] Work Phone: Start: 03-18-2025 End: 45-60-2692Iuqpxkf encounter procedureZachary Pascual MD-[facility] Work Phone: Start: 03-13-2025 End: 86-46-3523nqrvyqxzgpPdiqnh E Braun MD Work Phone: [facility] Work Phone: Start: 03-13-2025 End: 40-90-9969Jgmbvyu encounter procedureAmanguille García PHARMACY AIDE-[facility] Work Phone: Start: 03-06-2025 End: 54-38-0399Bdkprk outpatient visit 25 minutesXena Marrufo MD Work Phone: [facility] EndocrinologyComment on above:History of parathyroid surgery (Primary Dx); Chronic kidney disease, stage 3b ([facility]-HCC); Vitamin D deficiencyStart: 03-06-2025 End: 10-11-9366mpiejhachfALXAM F SABBAGHNot AvailableStart: 03-06-2025 End: 16-50-1118Uanoap Yonny Marrufo MD Work Phone: [facility] EndocrinologyStart: 03-06-2025 End: 75-26-4844Dwzchnbehzad Marrufo MD Work Phone: [facility] EndocrinologyStart: 92-59-6662Hgyxgwi encounter procedureSanta Augustin MD Work Phone: [facility]: 02-18-2025 End: 91-67-5792peiqnjcxyzZwxxfx E Braun MD Work Phone: [facility] Work Phone: Start: 02-18-2025 End: 56-72-3500Myrdfmx encounter procedureSanta Augustin MD-[facility] Work Phone: Start: 01-31-2025 End: 63-93-3006Wntontfvxi and management of inpatientBOGGSTOWN E [facility] Hospitaltart: 01-24-2025 End: 08-47-3138iysjljmmvhVgz Pat Phone Call Provider [address] [place] [address] - Pre AdmitStart: 01-11-2025 End: 26-80-8193Kgucks outpatient visit 15 [facility] hospitalRadha Penaloza APRNELIZABETH [facility] Work Phone: [facility] Physicians General SurgeryComment on above: Encounter for colonoscopy due to history of colonic polyp (Primary Dx)Start: 01-11-2025 End: 54-56-3747gtovnivncxJFNOBMESt. [facility] Hospital [facility] Start: 11-12-2024 End: 83-95-4584Bshrfi follow up visit related to original pxBemichael Adam Murcek DO Work Phone: [facility] SANDUSKYComment on above:History of parathyroidectomyStart: 11-12-2024 End: 12-18-1429zjaklshyulQMIZSIJB W MURCEKNot AvailableStart: 11-12-2024 End: 76-61-7457Ncjghka encounter procedureSanta Augustin MD Work Phone: [facility] [place] Work Phone: Start: 11-12-2024 End: 89-32-0379kqpptiejcqWkuzfm E Braun MD Work Phone: [facility] Work Phone: Start: 11-05-2024 End: 82-76-3960Dqlqcyxd Result EncounterBenflorymin W Murcek DO Work Phone: [facility] External Department UnsolicitedStart: 11-05-2024 End: 87-61-8493Jqcxgjgc Result EncounterBemichael Mccullough DO Work Phone: noms External Department UnsolicitedStart: 11-05-2024 End: 47-63-3861qvtfksshliDSTJTJCD W MURCEKNot AvailableStart: 11-05-2024 End: 18-85-0722Yxudkqa encounter procedureBemichael Mccullough DO Work Phone: noms EXT DEPComment on above:Primary hyperparathyroidism (CMS/HCC) (Primary Dx)Start: 11-05-2024 End: 32-83-2622Msxnphpmm to same day surgery centerSanta Augustin MD Work Phone: [facility] HospitalStart: 11-05-2024 End: 76-63-3821pucxueltozPhhcnk E Braun MD Work Phone: [facility] Work Phone: Start: 10-31-2024 End: 63-92-6579Efwylis encounter procedureSanta Augustin MD Work Phone: [facility]-Irv-Rgfktbqc Testing Work Phone: Start: 10-31-2024 End: 21-42-1564wdbrlxpvofEuilmt E Braun MD Work Phone: [facility] Work Phone: Start: 19-01-4389Qyzqkbstz for preprocedural laboratory examinationBemichael Teixeira [facility] Physician GroupStart: 10-31-2024 End: 55-99-3006Obifyode Result EncounterBenchris Mccullough DO Work Phone: noms External Department UnsolicitedStart: 10-31-2024 End: 22-91-0385Xgiukbqw Result EncounterBenchris Mccullough DO Work Phone: noms External Department UnsolicitedStart: 10-15-2024 End: 95-95-0272Mcqitb outpatient visit 25 minutesBenjamin W Murcek DO Work Phone: [facility] ENT SANDUSKYComment on above:Hypercalcemia; Hyperparathyroidism (CMS/HCC)Start: 10-15-2024 End: 75-85-0801iowxrndegaPNWQFRRP W MURCEKNot AvailableStart: 10-15-2024 End: 62-83-8317Yjtxup flowsheetBenjamin W Murcek DO Work Phone: [facility] ENT SANDUSKYStart: 10-15-2024 End: 19-91-9959Ruphqc flowsheetBenjamin W Murcek DO Work Phone: [facility] ENT SANDUSKYStart: 10-12-2024 End: 15-21-3586Bsmufyc encounter Perfecto Augustin MD Work Phone: [facility]-CT Scan [facility] [place] Work Phone: Start: 10-12-2024 End: 72-81-9458diatsozlltVtcung E Braun MD Work Phone: [facility] Work Phone: Start: 10-10-2024 End: 53-94-7454darhtemfcfYTOKOHSJ W MURCEKNot AvailableStart: 10-01-2024 End: 61-20-7534Pdyrhr outpatient new 45 minutesBenjamin W Murcek DO Work Phone: [facility] ENT SANDUSKYComment on above:Hypercalcemia; Hyperparathyroidism (CMS/HCC)Start: 10-01-2024 End: 49-76-2703tfuplrwuimDSAKXIRT W MURCEKNot AvailableStart: 10-01-2024 End: 36-23-5216Wxdnjm flowsheetBenjamin W Murcek DO Work Phone: [facility] ENT SANDUSKYStart: 10-01-2024 End: 12-81-2124Ecodzb flowsheetBenjamin W Murcek DO Work Phone: [facility] ENT SANDUSKYStart: 09-19-2024 End: 55-97-0108nxfhhhaourIgxlbibhpFirelands Regional Medical Center Work Phone: Start: 09-19-2024 End: 03-10-9512Agazolo encounter procedureUnc Health [facility] Physician [facility] Sand Work Phone: Start: 32-40-9553Rpn-patient / Non-visitUnc Health [facility] Phys[facility] Work Phone: Start: 08-29-2024 End: 99-75-3370Kftqah outpatient visit 25 minutesXena Marrufo MD Work Phone: [facility] ENDOCRINOLOGYComment on above:Hypercalcemia (Primary Dx); Hyperparathyroidism (CMS/HCC); Vitamin D deficiency; Chronic kidney disease, stage 3b (HCC) (CMS/HCC)Start: 08-29-2024 End: 99-42-9800vpefjulwtqPTPIJ F SABBAGHNot AvailableStart: 83-98-0760Tmn- patient / Non-visitUnc Health [facility] Physician GroupSt. [facility] Work Phone: Start: 50-03-7587Iow-patient / Non-visitUnc Health [facility] Physician GroupSt. [facility] Work Phone: Start: 07-04-2024 End: 40-33-1745cmxzypwmjgMVQICLD BORRIELLOFacility:[facility] Start: 07-04-2024 End: 18-74-4283Hpnwcjw encounter procedureChristine Brown OD Work Phone: OphthalmologyComment on above:Downbeat nystagmus (Primary Dx); Hypertropia of right eyeStart: 05-23-2024 End: 94-61-5103teoofroqewCRHCSMU BORRIELLOFacility:[facility] Start: 05-23-2024 End: 85-66-7685Ebsqeuc encounter procedureChristine Brown OD Work Phone: OphthalmologyComment on above:Downbeat nystagmus (Primary Dx); Hypertropia of right eyeStart: 04-13-2024 End: 21-81-1317Uyvfyd Nicki Chen DO Work Phone: noms NB OPHTStart: 04-13-2024 End: 13-79-1426Mcmtqz Nicki Chen DO Work Phone: noms NB OPHTStart: 04-13-2024 End: 41-01-4066Uzgmtd outpatient new 60 minutesVandana Chen DO Work Phone: noms NB OPHTComment on above:Downbeat nystagmus (Primary Dx); Diplopia; Age-related nuclear cataract of both eyes; Dry eyesStart: 04-13-2024 End: 22-30-0043utzpotradmHLPWXCRJ D ZAHLERMichael AvailableStart: 04-03-2024 End: 31-63-0368gjiiuezvfnUrqovcozlFirelands Regional Medical Center Work Phone: Start: 04-03-2024 End: 06-24-7174Vyslwly encounter procedureUnc Health [facility] Physician [facility] Nephrology [place] Work Phone: Start: 72-63-8555Ifx-patient / Non-visitUnc Health [facility] Physician [facility] Work Phone: Start: 02-10-2024 End: 49-76-1676Xawktv WinL[employer].[facility] OT Work Phone: noms CI PTStart: 02-10-2024 End: 44-34-0479Ipcnan Carlipa SystemsShelby Memorial HospitalSensipasspayton [facility] OT Work Phone: noms CI PTStart: 02-10-2024 End: 99-24-0645lcyhbbqvukZfnybekr [facility] OT Work Phone: noms CI PTComment on above:Closed fracture of distal end of right radius with routine healing, unspecified fracture morphology, subsequent encounter; Closed nondisplaced fracture of styloid process of right ulna with routine healingStart: 13-98-1055Wmg-patient / Non-visitUnc Health [facility] Physician [facility] Work Phone: Start: 01-30-2024 End: 01-58-4233Rlaudc flowsheetGretchen Jensen MANAGER PERFORMANCE Work Phone: n[facility] CI ORTHOPAEDICSStart: 01-30-2024 End: 51-50-5900Zycvsg flowsJt Jensen MANAGER PERFORMANCE Work Phone: [facility] CI ORTHOPAEDICSStart: 01-30-2024 End: 26-10-8630Ggfnoe outpatient visit 10 minutesJulienneia Fariha Jensen MANAGER PERFORMANCE Work Phone: n[facility] CI ORTHOPAEDICSComment on above:Closed fracture of distal end of right radius with routine healing, unspecified fracture morphology, subsequent encounter (Primary Dx); Closed nondisplaced fracture of styloid process of right ulna with routine healingStart: 10-08-2023 End: 06-78-5318Murmllhiz department patient visitGreene Memorial Hospitaltart: 10-08-2023 End: 33-76-8483Whmxobadz department patient visitIngval Griffin Work Phone: [facility] DIXIE Potts EDComment on above:Closed fracture of right wrist, initial encounter (Primary Dx)Start: 09-22-2023 End: 97-11-5051Tzstdaauu encounterAuracm Cardenaskins RMAProMedica Physicians General SurgeryStart: 09-19-2023 End: 27-17-6498vnumpdbqnyJvxabneefHolzer Hospital Work Phone: Start: 09-19-2023 End: 84-66-5623Tpzoaiy encounter procedureUnc Health Wayne Physician Group-[facility] Work Phone: Start: 09-05-2023 End: 69-66-0171Forufu outpatient visit 15 minutesRadha Penaloza PHARMACY AIDE-SURGICAL CODER Work Phone: [facility] General SurgeryComment on above: Chronic constipation (Primary Dx)Start: 60-18-5920Wby-patient / Non-visit [facility] Work Phone: Start: 07-06-2023 End: 53-42-3630olvkzpsahgEciyal Demetria Other [employer] Other Start: 38-96-3905Yhnjtikin for general adult medical examination without abnormal findingsSanta [facility] ClinicStart: 50-12-5347Nqtlkgen preventive med est patient 40-64yrsMarcia [facility] ClinicStart: 07-06-2023 End: 02-18-8120Eevmqtf encounter procedureFirelands Physician Group-Start: 03-23-2023 End: 07-68-4611ngznsoeawiSrads Maria Dolores Other [employer] Other Start: 40-66-1109Mlvrxv outpatient visit 15 minutes Zachary QadirFPG NephrologyStart: 01-20-2023 End: 89-03-6184lganaaesgmRnpxxp Braun Other [employer] Other Start: 48-55-1927Mgtcyd outpatient visit 15 minutes Santa [facility] ClinicStart: 11-16-2022 End: 99-57-7445deahckdceoXjtoh Maria Dolores Other [employer] Other Start: 17-53-8907Hqqacp outpatient visit 25 minutes Zachary QadirFPG NephrologyStart: 06-21-2022 End: 29-36-4547pcruiwouqgPONWVW E [facility]ulatoryStart: 06-21-2022 End: 41-70-2871Hfugqp outpatient visit 15 minutesUpchristian Adames MD Work Phone: [facility] GroupComment on above:KALEN (generalized anxiety disorder)Start: 05-26-2022 End: 78-87-0601hzwszryczlWQBVQNU ROSANGELAFacility:R0Mvplg: 60-53-9627zbuazeoxhw [place] E [facility] AmbulatoryStart: 05-08-2022 End: 42-07-3456zxznhvicoxWJ [place] AUGUSTINFacility:P7Edply: 05-06-2022 End: 21-67-8243hhpmtolnfnFgwjo Maria Dolores Other [employer] Other Start: 23-88-9849Gndnzh outpatient visit 15 minutes Zachary QadirFPG NephrologyStart: 04-26-2022 End: 14-53-3208fngkxezzqtVEBUTC E [facility] AmbulatoryStart: 04-26-2022 End: 06-25-4383Hxov/qhp telephone evaluation 04-25 minUpchristian Adames MD Work Phone: [facility] GroupComment on above:Long-term use of high-risk medication (Primary Dx); Bipolar affective disorder, manic, severe, with psychotic behavior (HCC)Start: 04-20-2022 End: 28-51-4051tmgvjgzlxjPioga Maria Dolores Other [employer] Other Start: 49-44-5932Bkqfttlxm encounterAbdul QadirFPG NephrologyStart: 04-19-2022 End: 59-37-1284fetbwmerrqLPGHBW E [facility] AmbulatoryStart: 04-19-2022 End: 71-41-7299Eqimgh outpatient visit 25 minutesGerald Adames MD Work Phone: NeMinerva Surgical Physicians GroupComment on above:Bipolar affective disorder, manic, severe, with psychotic behavior (HCC) (Primary Dx); KALEN (generalized anxiety disorder)Start: 04-08-2022 End: 92-03-6659byqglqbaqmGT DENTON DELGADOFacility:L3Jplml: 39-02-8936Zexar health examinationMarcia Demetria Other [employer] Other Start: 93-16-6957Wmqgjku, abnormal examinationMarcia Demetria Other [employer] Other Start: 37-35-2481mdizeiycxwJERTIP E [facility]ulatoryStart: 03-11-2022 End: 07-58-0340Zdmjjyovap and management of inpatientMD Santa Augustin Work Phone: [facility]-1 SouthStart: 02-12-2022 End: 93-99-1362ebjpfbavfmGWXTTW E [facility] AmbulatoryStart: 02-12-2022 End: 28-64-6498Pzhx/qhp telephone evaluation 04-25 Brock Adames MD Work Phone: [facility] Physicians GroupComment on above:Bipolar 1 disorder, manic, moderate (HCC) (Primary Dx); AnxietyStart: 48-52-2148Trerbb OnlyeGrald Adames MD Work Phone: NePersonalisUniversity Hospitals Geneva Medical CenterStart: 01-22-2022 End: 43-03-5524drjbwhwslhKIFPBNW GEHLOTFacility:B4Zijjm: 01-18-2022 End: 57-37-2626qhhrodchwiHLQYEN E [facility] AmbulatoryStart: 12-10-2021 End: 45-95-9228oodeqmpvmkLncxf Maria Dolores Other [employer] Other Start: 29-98-5132Ytqfyihaj encounterAbdul QadirFPG NephrologyStart: 12-07-2021 End: 01-88-8356pdwysysosfNV CALIXTO TAVARES .Facility:G5Zvifm: 12-05-2021 End: 30-00-6823mikdfgmtycDYKQZIM GEHLOTFacility:T5Twtfe: 17-08-0849Wtcdljyorhxga procedureUpchristian Adames MD Work Phone: OhHealthStart: 11-17-2021 End: 70-85-5130pnluvduzxyXyecw Maria Dolores Other [employer] Other Start: 70-87-4365Zaqiercwh encounterAbdul QadirFPG Nephrology ClydeStart: 09-21-2021 End: 54-43-3957xlxrubigseCA SANTA Kevin AUGUSTINcility:G6Priet: 09-14-2021 End: 21-24-6762khnaedsxysBVUFYW Kevin AUGUSTINAccess [facility] AmbulatoryStart: 09-14-2021 End: 96-09-6083Ijwsit outpatient visit 25 minutesUpchristian Adames MD Work Phone: [facility] Physicians GroupComment on above:KALEN (generalized anxiety disorder) (Primary Dx); Bipolar 1 disorder, manic, mild (HCC); Long-term use of high-risk medication; AnxietyStart: 69-47-7436Sddubv Leathanicole Khan Migdalia ESTES Work Phone: [facility] Physicians GroupComment on above:Anxiety (Primary Dx)KALEN (generalized anxiety disorder)Start: 61-05-1628QlnbyjIwgjo Jerger [facility] Neurological PhysiciansComment on above:KALEN (generalized anxiety disorder)Start: 10-79-2329EjuvqmXyddd [facility] Physicians GroupComment on above:KALEN (generalized anxiety disorder)Start: 05-06-2021 End: 48-60-3828xuslzgwxbpZqpbhs Dymond Other [place] [employer] Other Start: 81-07-5881Ulupkj outpatient visit 15 minutes [place] NaikFPG [facility] ClydeStart: 16-66-6319Echcmo outpatient visit 15 minutesZachary ForddirFPG NephrologyStart: 02-13-2021 End: 96-04-3745Uopwzf outpatient visit 25 minutesGerald Adames MD Work Phone: [facility] Physicians GroupComment on above:KALEN (generalized anxiety disorder)Start: 98-81-6865Azkismcqvfbva procedureHeather Lissa Tenorio [facility] Neurological PhysiciansStart: 08-22-2020 End: 70-80-0564Huph/qhp telephone evaluation 21-30 minUpchristian Adames Work Phone: [facility] Physicians GroupComment on above:Bipolar 1 disorder, manic, mild (HCC) (Primary Dx); KALEN (Generalized Anxiety Disorder); Long-term use of high-risk medicationStart: 07-14-2020 End: 34-60-2923XwphsaTqkibpk Rosangela Work Phone: [facility] Comment on above:KALEN (Generalized Anxiety Disorder) (Primary Dx)Start: 10-26-2017 End: 86-04-5692Gxgvbjybwv and management of inpatientYAVAPAI REGIONAL MEDICAL CENTERCIA [facility] Procedures DateProcedureProcedure DetailPerforming ClinicianStart: 25-26-6745Qgpmzhlwsjq Xena Marrufo MD Work Phone: Start: 12-29-5806Xswbysq totalBenjamin W Murcek DO Work Phone: start: 11-05-2024 End: 07-74-2140QOUBRM PTH INTRAOPERATIVE 15 MBenjamin W Murcek DO Work Phone: start: 06-00-8246GDXHLU PTH IO ADDITIONAL ([facility]) Conrad W Murcek DO Work Phone: start: 11-05-2024 End: 55-34-1139QLGJRI PTH INTRAOPERATIVE 10 MBenjamin W Murcek DO Work Phone: start: 63-74-0440Dyckjqwpy of thyroid glandSanta Augustin MD Work Phone: Start: 23-84-1633SZUTOU PTH IO POST INDUCTIONBenjamin W Murcek DO Work Phone: start: 81-74-6502Ketyp of parathormoneBenjamin W Murcek DO Work Phone: start: 29-22-7661Ufgcocux blood count with white cell differential, automatedBenflorymin W Murcek DO Work Phone: start: 78-52-0602UM of soft tissues of neck with contrastSanta Augustin MD Work Phone: Start: 13-41-6629Sefgtw photon emission computed tomography of parathyroidSanta Augustin MD Work Phone: Start: 63-30-2851Lwzor wrist 2 viewsJuliennenicole Fariha Jensen MANAGER PERFORMANCE Work Phone: Start: 71-62-0614Ufkbk wrist complete minimum 3 views Carrie Shipley PHARMACY AIDE - SURGICAL CODER Work Phone: Start: 35-86-7521NkxcrhvcrtuOgdzdjx Rosangela DIAZ Work Phone: Start: 57-91-6080EnxpwwhksetOrizlgr Gehlot MD Work Phone: Start: 93-40-4909XaiontodmzbGazoygh Jona LPNStart: 53-82-5515LHVHIQJZE PATIENTMARCIA [facility] HOSPITALStart: 97-69-0535UROARAMN ACID LEVEL, TOTALMARCIA BRAUNStart: 04-20-1090Rwl brain brain stem w/o contrast material SANTA DEMETRIAStart: 86-88-8051Jrhil count complete auto&auto difrntl wbcMARCIA BRAUNStart: 52-80-3783Wbvqoiiembzth metabolic panelMARCIA BRAUNStart: 11-09-2017 AMMONIAMARCIA BRAUNStart: 34-24-5304Qllah count complete auto&auto difrntl wbc SANTA [facility] Centerart: 47-77-8701DDHVZNQRXEHCX METABOLIC PANEL W/ REFLEX TO MG FOR LOW KMARCIA BRAUNStart: 11-09-2017T. PALLIDUM ABMARCIA BRAUNStart: 11-09-2017 VITAMIN B12 AND FOLATEMARCIA BRAUNStart: 11-09-2017C.TRACHOMATIS N.GONORRHOEAE DNA, URINEMARCIA BRAUNStart: 86-17-4876YE CONSULT TO INTERNAL MEDICINEYAVAPAI REGIONAL MEDICAL CENTERCIA [facility] Centerart: 45-49-1464FZLMGQIXMBQXZ NURSING CARE ORDER (SPECIFY)SANTA DEMETRIA Start: 31-19-5035Bbsun count complete auto&auto difrntl wbcMARCIA BRAUNStart: 74-88-0392Fobvhceuxhlbh metabolic panelMARCIA [facility]OSPITALStart: 15-88-1877Pwnnqhigus glycosylated o5jPJIFMY [facility] Centerart: 15-86-9691RJ EVAL AND TREATMARCIA BRAUNStart: 73-21-4181WPGXTYTP ACID LEVEL, TOTALMARCIA BRAUNStart: 68-26-5839UWRL GENERAL SANTA DEMETRIAStart: 90-25-4644CBTI CODEMARCIA BRAUNStart: 84-85-1638ZJTBCBL PRECAUTIONSMARCIA [facility]OSPITALStart: 98-30-6850THLZKQP CESSATION EDUCATIONSANTA AUGUSTIN Start: 13-93-0671ZSOKG SIGNSMARCIA BRAUNStart: 55-71-8508MAPHWFU STATUS (FROM ED OR OR/PROCEDURAL)SANTA AUGUSTINH/O: surgeryHistory of parathyroid surgeryXena Marrufo MD Work Phone: SARS Antigen (LFIA)MD Santa Augustin Work Phone: Screening for malignant neoplasm of breastJulienneeldona Demetria Other Urine cultureMD Santa Augustin Work Phone: Viral screeningJuliennejose Demetria Other Plan of Treatment DateCare ActivityDetailAuthorStart: 24-57-4642Tqreotscr for malignant neoplasm of colonNOMS HealthcareStart: 41-48-8641SPP Vaccine (1 - 1-dose 75+ series)RSV Vaccine (1 - 1-dose 75+ series)[facility] Hospitaltart: 12-61-3676Wagyfpguy for malignant neoplasm of colonOhioHealthStart: 65-33-7938MCyY,Tdap and Td Vaccines (2 - Td or Tdap)DTaP,Tdap and Td Vaccines (2 - Td or Tdap)[facility] SystemStart: 59-90-3866HCgN/Tdap/Td vaccine (2 - Td or Tdap)DTaP/Tdap/Td vaccine (2 - Td or Tdap)[facility] HEALTHStart: 57-46-3436Htlroxa vaccination Tetanus: Every 10yrsOhioHealthStart: 29-43-3986Rpamg microalbumin profile DTaP,Tdap,Td Vaccine (2 - Td or Tdap)[facility] Hospitaltart: 98-91-5228Toqpa BMI ScreeningAdult BMI ScreeningProWooster Community Hospital SystemStart: 38-14-8046Wumuwvx ScreeningTobacco ScreeningProWooster Community Hospital SystemStart: 39-29-8371Dzhpk BMI ScreeningAdult BMI ScreeningProWooster Community Hospital SystemStart: 97-65-8493Ovtyjzb ScreeningTobacco ScreeningProWooster Community Hospital SystemStart: 09-04-2025 End: 58-53-0706Nxfeiiz encounter cukgumczv22/01/2026 2:30 PM EDT Office Visit [facility] [address] [place] [address] Xena Marrufo MD [address] [place] [address] JINGReba MelendezGilbert EndocrinologyStart: 03-06-2025 End: 06-87-3480Vsrmscj encounter znwtgseoo37/01/2025 2:10 PM EDT Office Visit [facility] [address] [place] [address] Xena Marrufo MD [address] [place] [address] ArrivedNOMS MelendezLa Grange EndocrinologyComment on above:ArrivedStart: 03-06-2025 End: 901256-mlvqgiehhdihfd D3 [Mass/volume] in Serum or PlasmaVitamin D 25 hydroxy Total Lab Routine History of parathyroid surgery Chronic kidney disease, mrirf2q ([facility]-HCC) Vitamin D deficiency Expected: 03/06/2025 (Approximate), Expires: 03/06/2026[facility] Healthcare Work Phone: Comment on above:Expected: 03/06/2025 (Approximate), Expires: 03/06/2026Start: 03-06-2025 End: 21-59-5191Mcarcgnhlk.intact [Mass/volume] in Serum or PlasmaPTH, intact Lab Routine History of parathyroid surgery Chronic kidney disease, stage 3b ([facility]- HCC) Vitamin D deficiency Expected: 03/06/2025 (Approximate), Expires: 03/06/2026[facility] HealthcareComment on above:Expected: 03/06/2025 (Approximate), Expires: 03/06/2026Start: 03-06-2025 End: 87-84-5262Bsntu function panelRenal function panel Lab Routine History of parathyroid surgery Chronic kidney disease, stage 3b ([facility]-HCC) Vitamin D deficiency Expected: 03/06/2025 (Approximate), Expires: 03/06/2026NONE HealthcareComment on above:Expected: 03/06/2025 (Approximate), Expires: 03/06/2026Start: 17-55-6331Krcnoxwaj [facility] Centerca [facility] SystemStart: 01-31-2025 End: 71-11-3834Ccdikxtnd to same day surgery jrobzv2801/31/2025 7:30 AM EDT - 01/31/2025 8:00 AM EDT Surgery [facility] [address] [place] [phone] Jose Rafael Posadas, DO [address] [place] [address] COLONOSCOPY DIAGNOSTIC / SCREENING [G0105 +1 more][facility] HospitalComment on above:COLONOSCOPY DIAGNOSTIC / SCREENING [G0105 +1 more]Start: 01-31-2025 End: 39-63-8971Llnrrpqvbo hoievmhdixoz31/28/2025 7:30 AM EDT Anesthesia Event [place] [address] [place], [place] [phone] Mic Bland, DO [address] [place], [place] [phone] [facility] SurgeryStart: 01-31-2025 End: 68-04-6458Egowbmtzqm scrn; hi risk indCOLONOSCOPY DIAGNOSTIC / SCREENING history of colon polyps 01/31/2025 7:30 AM EDTFREMONT SURGERYStart: 01-31-2025 Subsequent hospital visit by rfhyhwtow42/28/2025 7:30 AM EDT Hospital Encounter [facility] [address], [place] [phone] Jose Rafael Posadas, [address] [place] [address] [facility] - SurgeryStart: 01-30-2025 End: 43-97-2838Nrxlqqj encounter cgimctjcx87/27/2025 2:30 PM EDT Office Visit [facility] [address] [place] [phone] Xena Marrufo MD [address] [place] [address] [facility]IN[facility]YStart: 01-28-2025 End: 194611-xbcdstcmcxhwkw D3 [Mass/volume] in Serum or PlasmaVitamin D 25 hydroxy Total Lab Routine History of parathyroidectomy Expected: 01/28/2025, Expires: 11/12/2025NONE Healthcare Work Phone: comment on above:Expected: 01/28/2025, Expires: 11/12/2025Start: 01-28-2025 End: 85-37-2305Vabvryw [Mass/volume] in Serum or PlasmaCalcium Lab Routine History of parathyroidectomy Expected: 01/28/2025, Expires: 11/12/2025NONE HealthcareComment on above:Expected: 01/28/2025, Expires: 11/12/2025Start: 01-28-2025 End: 85-96-6923Wwljbaczov.intact [Mass/volume] in Serum or PlasmaPTH, intact Lab Routine History of parathyroidectomy Expected: 01/28/2025, Expires: 11/12/2025 [facility] HealthcareComment on above:Expected: 01/28/2025, Expires: 11/12/2025Start: 48-85-0088Skqlgvwz ScreeningDiabetes ScreeningAdams County Hospitaltart: 11-12-2024 End: 02-67-2449Vuyurhr encounter rzzdewklg84/09/2025 4:00 PM EDT Office Visit [facility] [place] [address] [place] [phone] JamelConrad Adam, DO [address] [place] [address] [facility] ERNIE CAMPBELLYStart: 94-98-8209WlofffvgxMartins Ferry Hospitaltart: 46-07-2578TzzmgfgyoMartins Ferry Hospitaltart: 22-18-4418DKLLA-19 Vaccine ( season)COVID-19 Vaccine ()[facility] SystemStart: 00-07-5880Zomt Risk ScreeningFall Risk ScreeningBucyrus Community Hospital SystemStart: 10-15-2024 End: 44-78-0016Aulmwnd encounter procedureNOMS ERNIE DODDomment on above: ArrivedStart: 10-15-2024 End: 701063-fsblhykksknhqi D3 [Mass/volume] in Serum or PlasmaVitamin D 25 hydroxy Total Lab Routine Hypercalcemia Hyperparathyroidism (CMS/HCC) Expected: 10/15/2024 (Approximate), Expires: 10/15/2025NONE HealthcareComment on above: Expected: 10/15/2024 (Approximate), Expires: 10/15/2025Start: 10-15-2024 End: 78-88-7899Mrfgvhz [Mass/volume] in Serum or PlasmaCalcium Lab Routine Hypercalcemia Hyperparathyroidism (CMS/HCC) Expected: 10/15/2024 (Approximate), Expires: 10/15/2025[facility] HealthcareComment on above:Expected: 10/15/2024 (Approximate), Expires: 10/15/2025Start: 10-15-2024 End: 03-11-5110Bjvqzlqzga.intact [Mass/volume] in Serum or PlasmaPTH, intact Lab Routine Hypercalcemia Hyperparathyroidism (CMS/HCC) Expected: 10/15/2024 (Approximate), Expires: 10/15/2025NONE Healthcare Work Phone: comment on above:Expected: 10/15/2024 (Approximate), Expires: 10/15/2025Start: 10-01-2024 End: 22-29-1045Didojsn encounter /28/2025 2:30 PM EDT Office Visit [facility] ERNIE [place] [address] [place] [phone] Conrad Mccullough W, DO [address] [place] [address] Hypercalcemia; Hyperparathyroidism (CMS/HCC)[facility] ENT SHANNANYComment on above:Hypercalcemia; Hyperparathyroidism (CMS/HCC)Start: 10-01-2024 End: 94-11-6242ST Neck WO and W contrast IVCT 4D PARATHYROID Imaging STAT Hyperparathyroidism ([facility]/HCC) Expected: 10/01/2024, Expires: 10/01/2025NONE Healthcare Work Phone: comment on above:Expected: 10/01/2024, Expires: 10/01/2025Start: 10-01-2024 End: 07-70-9640NBRMU Parathyroid glandNM parathyroid spect Imaging STAT Hyperparathyroidism ([facility]/HCC) Expected: 10/01/2024, Expires: 10/01/2025[facility] HealthcareComment on above:Expected: 10/01/2024, Expires: 10/01/2025Start: 50-54-2559Pfwfdvymt for malignant neoplasm of colonColonoscopyProWooster Community Hospital SystemStart: 68-57-0406Xvovk BMI ScreeningAdult BMI ScreeningProHenry County Hospitalca Health SystemStart: 64-31-3430Vrinfxc ScreeningTobacco ScreeningTrinity Health System West Campusca Health System Start: 08-29-2024 End: 896838-okfexsdpejfyyf D3 [Mass/volume] in Serum or PlasmaVitamin D 25 hydroxy Total Lab Routine Hypercalcemia Expected: 08/29/2024 (Approximate), Expires: 08/29/2025NONE HealthcareComment on above:Expected: 08/29/2024 (Approximate), Expires: 08/29/2025Start: 08-29-2024 End: 94-51-0167Xezsfjdfq [Mass/volume] in Serum or PlasmaMagnesium Lab Routine Hypercalcemia Expected: 08/29/2024 (Approximate), Expires: 08/29/2025[facility] Work Phone: Comment on above:Expected: 08/29/2024 (Approximate), Expires: 08/29/2025Start: 08-29-2024 End: 56-96-6846Aygrvxlfep.intact [Mass/volume] in Serum or PlasmaPTH, intact Lab Routine Hypercalcemia Expected: 08/29/2024 (Approximate), Expires: 08/29/2025 [facility] HealthcareComment on above:Expected: 08/29/2024 (Approximate), Expires: 08/29/2025Start: 08-29-2024 End: 42-82-0228Qgmbe function panelRenal function panel Lab Routine Hypercalcemia Expected: 08/29/2024 (Approximate), Expires: 08/29/2025NONE HealthcareComment on above:Expected: 08/29/2024 (Approximate), Expires: 08/29/2025Start: 08-29-2024 End: 02-84-0555Xhvxvda encounter ljlfnhfys07/26/2025 1:50 PM EDT Office Visit [facility] [address] [place] [phone] Xena Marrufo MD [address], [address] [place] [address] [facility]CRINOLOGYStart: 07-04-2024 End: 98-41-3426Glabqcl encounter hrsovzfaw91/29/2025 9:00 AM EST Office Visit [facility] [address] [place] [address] Christine Brown, OD [address] [place] [address] Return in about 6 weeks (around 07/04/2024) for 30 min dipolopia slot.OphthalmologyComment on above:Return in about 6 weeks (around 07/04/2024) for 30 min dipolopia slot.Start: 04-13-2024 End: 39-86-6669Sxfhdve encounter epdwcvqvq18/08/2024 10:30 AM EST Office Visit [facility] [address] [place] [phone] Vandana Chen, DO [address] [place] [address] ArrivedNOMS NB OPHTComment on above:ArrivedStart: 03-12-2024 End: 91-00-4399Jyyjaoy encounter ftvqezana31/07/2024 8:15 AM EDT Office Visit [facility] [address] [place] [address] Gretchen Jensen NP [address] [place] [address] [facility] CI ORTHOPAEDICSStart: 03-09-2024 End: 19-43-7083fkrkhmihrg94/04/2024 9:00 AM EDT Treatment [facility] [address] [place] [address] PaytonRuby riggs, OT [address] [place] [address] [facility] CI PTStart: 03-02-2024 End: 94-74-5358vynuxmdufs17/27/2024 9:00 AM EDT Treatment [facility] [address] [place] [address] Orly Loveney, OT [address] [place] [address] [facility] CI PTStart: 02-24-2024 End: 62-74-1178nlsbexuerf55/20/2024 9:00 AM EDT Treatment [facility] [address] [place] [address] Ruby Love, OT [address] [place] [address] [facility] CI PTStart: 02-10-2024 End: 15-28-6819bmbzsrclrhPUMH CI PTComment on above:Closed fracture of distal end of right radius with routine healing, unspecified fracture morphology, subsequent encounter; Closed nondisplaced fracture of styloid process of right ulna with routine healingStart: 87-57-3120Atebx-19 Vaccine ( season)Covid-19 Vaccine ( season)[facility] Hospitaltart: 40-29-7104Ksjelfbxa vaccinationMercy hospital springfieldStart: 01-30-2024 End: 20-07-8783Utudaqn encounter ubfrhtutp57/26/2024 1:30 PM EDT Office Visit [facility] [address] [facility] [address] [place] [address] Gretchen Jensen NP [address] [facility] [address] [place] [address] Closed fracture of distal end of right radius with routine healing, unspecified fracture morphology, subsequent encounter (Primary Dx); Closed nondisplaced fracture of styloidprocess of right ulna with routine healingNOHARPER COUNTY COMM[facility] BUFFALO ORTHOPAEDICSComment on above:Closed fracture of distal end of right radius with routine healing, unspecified fracture morphology, subsequent encounter (Primary Dx); Closed nondisplaced fracture of styloid process of right ulna with routine healingStart: 98-56-3138Fybaprlvd for malignant neoplasm of breastBreast cancer [facility] HospitalStart: 08-82-1903Ypsrkfokb for malignant neoplasm of colonAdams County Hospitaltart: 05-03-2022 End: 06-14-7967Dzuqmau [Moles/volume] in Serum or PlasmaLithium Level Lab Routine Long-term use of high-risk medication Bipolar affective disorder, manic, severe, with psychotic behavior (HCC) Expected: 05/03/2022, Expires: 04/26/2023 [facility] Work Phone: Comment on above:Expected: 05/03/2022, Expires: 04/26/2023Start: 04-26-2022 End: 20-23-7693Qlayowhuxmad consultation with mxoeofa5104/26/2022 Telemedicine Telephone Psychiatry Gerald Adames MD [address] [place] [address] [facility] GroupStart: 70-33-9727FnhbbkdbwMartins Ferry Hospitaltart: 02-29-4294Mtstpadh admission [facility] Hospitaltart: 30-37-4283Iqlkseg D, 25-hydroxy measurementMartins Ferry Hospitaltart: 49-66-1068AhzhdiyplMartins Ferry Hospitaltart: 02-12-2022 End: 51-75-4074Lnvowkmjhrqh consultation with ewcygwu7702/12/2022 Telemedicine Telephone Psychiatry Gerald Adames MD [address] [place] [address] [facility] GroupStart: 83-32-7365Rbszgvhwb vaccinationSequential Influenza Vaccine (#1)[facility] Start: 01-15-2022 End: 05-79-1136Uyupwmj encounter hhcowueww22/12/2022 Office Visit Psychiatry Gerald Adames MD [address] [place] [address] [facility] GroupStart: 36-28-2760HBAZG-19 Vaccine (5 - Booster for Pfizer series)COVID-19 Vaccine (5 - Booster for Pfizer series)[facility] HospitalStart: 12-08-2021 End: 96-28-9624Oxbyqqy encounter hiqrulimv73/05/2022 Office Visit Psychiatry Gerald Adames MD [address] [place] [address] [facility] GroupStart: 61-32-7191Eululhnpa for malignant neoplasm of breastMammogramOhioHealthStart: 33-81-0672Hngmdvvkg for malignant neoplasm of breastOhioHealthStart: 79-82-8400Gvyvmtq and physical examination, annual for [facility] VisitOhioHealthStart: 09-14-2021 End: 51-77-6596Sfzhkaj encounter /11/2022 Office Visit Psychiatry Gerald Adames MD [address] [place] [address] [facility] GroupStart: 00-84-1894XGKBZ-19 Vaccine (4 - Booster for Pfizer series)COVID-19 Vaccine (4 - Booster for Pfizer series)[facility]HealthStart: 82-63-5802HMWVL-19 Vaccine (3 - Booster for Pfizer series)COVID-19 Vaccine (3 - Booster for Pfizer series)[facility]HealthStart: 02-13-2021 End: 50-74-2397Muznqcz encounter eruqpqbkb42/10/2021 Office Visit Psychiatry Gerald dAames MD [address] [place] [address] [facility] GroupStart: 42-34-2546EXZZD-19 Vaccine (3 - Booster for Pfizer series)COVID-19 Vaccine (3 - Booster for Pfizer series)[facility]HealthStart: 38-95-3190Jlbhmykko vaccinationSequential Influenza Vaccine (#1)[facility]HealthStart: 11-24-2020 End: 77-49-0710Pmcwfl Visit11/24/2020 Office Visit Psychiatry Gerald Adames MD [address] [place] [address] [phone] [facility] GroupStart: 09-22-2020 End: 10-78-6047Kybjknl [Moles/Vol]Bejou Level Lab Routine Bipolar 1 disorder, manic, mild (HCC) KALEN (Generalized Anxiety Disorder) Long-term use of high-risk medication Expected: 09/22/2020, Expires: 09/22/2020OhioHealthComment on above: Expected: 09/22/2020, Expires: 09/22/2020tart: 09-22-2020 End: 27-89-7639ZemsmymhfoVxkejvyqem Lab Routine Bipolar 1 disorder, manic, mild (HCC) KALEN (Generalized Anxiety Disorder) Long-term use of high-risk medication Expected: 09/22/2020, Expires: 09/22/2020OhioHealthComment on above:Expected: 09/22/2020, Expires: 09/22/2020tart: 41-18-5352ZWURB-19 Vaccine (2 - Pfizer 2- dose series)COVID-19 Vaccine (2 - Pfizer 2-dose series)[facility] CenterStart: 08-22-2020 End: 15-07-0955Ugygwp Visit08/22/2020 Office Visit Psychiatry Gerald Adames MD [facility] [address] [place] [phone] [facility] GroupStart: 12-64-4837Gvefnbruc vaccination given Sequential Influenza Vaccine (#1)[facility]HealthStart: 21-74-0850Hcaggvpziyp Syncytial Virus (RSV) or age 60 yrs+ (1 - 1-dose 60+ series)Respiratory Syncytial Virus (RSV) or age 60 yrs+ (1 - 1-dose 60+ series)[facility]ITALStart: 76-21-6961Xwkptybunknujv of herpes zoster vaccine Zoster Vaccines (2 of 3)[facility]: 70-33-9702Dxprtfek Vaccine (2 of 3) Shingrix Vaccine (2 of 3)[facility]: [id number] of herpes zoster vaccineZoster Vaccines (1 of 2)[facility]: 11[facility]-2009 Pneumococcal Vaccine: 50+ (1 of 1 - PCV)Pneumococcal Vaccine: 50+ (1 of 1 - PCV) [facility]: [phone] Vaccine: 65+ Years (1 of 1 - PCV) Pneumococcal Vaccine: 65+ Years (1 of 1 - PCV)[facility]Start: [facility]2009 Screening for malignant neoplasm of colonOhioHealthStart: 40-75-7491Qmrym panel Lipid ScreeningAdams County Hospitaltart: 60-79-6003Qwzsayrkw for malignant neoplasm of colonBON ADENA REGIONAL MEDICAL CENTERStart: 60-66-3773Zluix panelLipidsCENTRA SOUTHSIDE COMMUNITY HOSPITALStart: 95-66-8896Iewrlxvfo for malignant neoplasm of cervixBON ADENA REGIONAL MEDICAL CENTERStart: 72-68-4747Jyjszadjg for malignant neoplasm of cervix [facility]ITALStart: 14-43-5243Lpjfx BMI Follow Up PlanAdult BMI Follow Up [facility]burgtart: 63-97-3666Lqtxtbr ScreeningAnxiety ScreeningAdams County Hospitaltart: 81-84-6200Rtvzvbwenc ScreeningDepression ScreeningAdams County Hospitaltart: 91-58-7069Bdlnhxxqb C antibody, confirmatory testHepatitis C ScreeningOhioHealthStart: 62-17-4214Hddgywmno C screening [facility]HealthStart: 62-15-8330PTA screeningHIV ScreeningAdams County Hospitaltart: 37-46-4556XFI screeningOhioHealthStart: 93-68-3515Ufxjovcmjb depression screening assessmentECU Health Beaufort Hospitaltart: 18-57-0316Gavdpnkkfs MonitoringDepression MonitoringCENTRA SOUTHSIDE COMMUNITY HOSPITALStart: 15-54-1136Lprvdiy DL <= 20 mg/L (U) [Mass/Vol]Urine MicroalbuminOhioHealthStart: 11-03-1969 Microalbumin measurement, urine, quantitativeUrine MicroalbuminOhioHealthStart: 39-28-1783Iaavd screening for proteinUrine MicroalbuminOhioHealthStart: 01-58-7677Tzmwddjbsmqy Vaccine: Ped or At-Risk (1 - PCV)Pneumococcal Vaccine: Ped or At-Risk (1 - PCV)[facility]HealthStart: 77-52-3590Cxnwbokdcmgl Vaccine: Ped or At-Risk (1 of 4 - PCV13)Pneumococcal Vaccine: Ped or At-Risk (1 of 4 - PCV13) [facility]HealthStart: 01-11-9334Ohdfswj and physical examination, annual for health maintenanceSentara Martha Jefferson Hospital VisitOhioHealthStart: 57-76-4746Jkhtvzxbk for malignant neoplasm of cervixPap SmearOhioHealthStart: 70-48-6145Dskgtissr for malignant neoplasm of colonOhioHealthStart: 67-48-2457Rmestpsre mammographyMammogram OhioHealthStart: 25-81-7822Bnojojq vaccinationTetanus: Every 10yrsOhioHealth Bacteria identified in Urine by CultureFairfield Medical CenterBasi metabolic 1998 panel - Serum or PlasmaBasic metabolic panel Lab Routine 10/31/2024 3:55 PM EDP[facility] Work Phone: calculated LDL cholesterol levelMercy Health – [facility] Work Phone: Cholesterol [Mass/volume] in Serum or PlasmaMercy Health – The Jewish Hospital Work Phone: Cholesterol in HDL [Mass/volume] in Serum or Plasma [facility] Work Phone: Cholesterol.total/Cholesterol in HDL [Mass Ratio] in Serum or [facility] Work Phone: End: 29-26-5792EfzhodlhcfmEewclqwuwku GI Routine Encounter for colonoscopy due to history of colonic polyp 1 Occurrences starting 01/11/2025 until 01/11/2026 [facility] Work Phone: Comment on above:1 Occurrences starting 01/11/2025 until 01/11/2026 End: 58-14-1095Vobwrwakjbzwt metabolic 2000 panelComprehensive Metabolic Panel Lab Routine Bipolar 1 disorder, manic, mild (HCC) KALEN (Generalized Anxiety Disorder) Long-term use of high-risk medication 1 Occurrences starting 08/22/2020 until 2OhioHealthComment on above:1 Occurrences starting 08/22/2020 until 08/22/2021MG Breast - bilateral ScreeningFairfield Medical CenterPatient EducationSycamore Medical Center Ctr Work Phone: Patient referralMercy Health [facility] Work Phone: Renal function 2000 panel - Serum or [facility] CenterRenal function 1999 panel - Serum or [facility] CenterRenal function 1999 panel - Serum or [facility] CenterRenal function 1999 panel - Serum or [facility] Medical CenterThyrotropin [Units/volume] in Serum or [facility] Work Phone: Triglyceride [Mass/volume] in Serum or [facility] Work Phone: End: 46-19-8179YQN QnTSH Lab Routine Bipolar 1 disorder, manic, mild (HCC) KALEN (Generalized Anxiety Disorder) Long-term use of high-risk medication 1 Occurrences starting 08/22/2020 until 2OhioHealthComment on above:1 Occurrences starting 08/22/2020 until 08/22/2021Vitamin D, 25-hydroxy measurementSycamore Medical Center Ctr Work Phone: VLDL cholesterol measurementSycamore Medical Center Ctr Work Phone: [facility] Immunizations Immunization DateImmunizationNotesCare PczhkjjtCmwmtsnq83-46-9705zskdruwop, high dose seasonal, preservative-freeSanta Augustin MD Work Phone: [facility]11-15-2024COVID-19 (MODERNA) 12Y and olderSanta Augustin MD Work Phone: [facility]11-15-2024influenza, seasonal, injectable, preservative freeBenjamin Murcek DO Work Phone: [facility] springfieldHxelxmmuwo69-48-8532cfpdknaaj virus vaccine, unspecified formulationJessica Penaloza PHARMACY AIDE-SURGICAL CODER Work Phone: [facility] CenterJxfaxj86-66-0256CQILQ-56 (MODERNA) 12Y and Rick Augustin MD Work Phone: [facility]11-21-2023influenza, injectable, quadrivalent, preservative freeBenjamin Murcek DO Work Phone: [facility] springfieldSxavuruebo28-25-0011knugffrpe virus vaccine, unspecified formulationNahidssica Penaloza PHARMACY AIDE-SURGICAL CODER Work Phone: [facility] CenterTjoglp79-07-0932HQZEX-23 mRNA Bivalent Booster (Moderna)Santa Augustin MD Work Phone: [facility]06-07-2022COVID-19 mRNA-1273 (Moderna)Santa Augustin MD Work Phone: [facility]01-14-2022zoster vaccine recombinantBenjamin Murcek DO Work Phone: [facility] springfieldEdjscgeshs85-40-6944ENPIL-44 mRNA, Comirnaty (Pfizer)Santa Augustin MD Work Phone: [facility]12-04-2021influenza, injectable, quadrivalent, preservative freeBenjamin Murcek DO Work Phone: [facility] springfieldLfhhhuxfxl54-69-5277ybpqmr vaccine recombinant Conrad Murcek DO Work Phone: [facility] springfieldPqtvnrqhnh30-14-5584TMIWJ-19 mRNA, Comirnaty (Pfizer)Santa Augustin MD Work Phone: [facility]03-15-2021COVID-19 mRNA, Comirnaty (Pfizer)Santa Augustin MD Work Phone: [facility]09-10-2020influenza, injectable, quadrivalent, preservative freeBenjamin Murcek DO Work Phone: [facility] springfieldUmvvcqaxsr19-59-2246krkfrcq toxoid, reduced diphtheria toxoid, and acellular pertussis vaccine, adsorbedJessica Penaloza PHARMACY AIDE-SURGICAL CODER Work Phone: [facility] CenterQljwgc17-16-7346Ddnynksbn, injectable, Madin [place] Canine Kidney, preservative free, quadrivalentJessica Penaloza PHARMACY AIDE-SURGICAL CODER Work Phone: [facility] CenterDkeaut45-02-9131hvbvwamvx virus vaccine, unspecified formulationChristine Brown OD Work Phone: [facility] HospitalQvvufo70-51-2288tgkucbeyf, injectable, quadrivalent, preservative freeJessica Penaloza PHARMACY AIDE-SURGICAL CODER Work Phone: [facility]01-23-2016zoster vaccine, live Radha Penaloza PHARMACY AIDE-SURGICAL CODER Work Phone: [facility] CenterFjamzb23-41-3230aqaortvos, seasonal, injectableRadha Penaloza PHARMACY AIDE-SURGICAL CODER Work Phone: [facility]11-18-2009novel nruzoprht-X7T1-38, preservative-free, injectableRadha Penaloza PHARMACY AIDE-SURGICAL CODER Work Phone: [facility] Payers DatePayer CategoryPayerPolicy [id number] Care Other (unspecified) [employer] .[id number]1Uamlxuh Health Insurance1.2.840.400969.1.13.693.2.7.9.382419.517022. Unknown1.2.840.174101.1.13.385.2.7.3.810[id number] 2017Medicare1.2.840.054885.1.13.424.2.7.9.833761.102.315 2017Medicare [id number] [id number] [id number] [id number] 2.16.840.1.958655.3.57[id number] 2.16.840.1.860339.3.57[id number] 2.16.840.1.739079.3.57[id number] 2.16840.1.597075.3.57[id number] 2.16840.1.716255.3.57[id number] 2.16840.1.832592.3.57[id number] 2.840.1.387364.3.57[id number] 2.840.1.919213.3.579.[id number] 2.840.1.583333.3.57[id number] 2.840.1.205610.3.57[id number] 2.840.1.834637.3.57[id number] 2.840.1.470913.3.57[id number] 2.16840.1.603467.3.57[id number] 2.16840.1.270723.3.579.[id number] 2.840.1.189944.3.57[id number] 2.16.840.1.810556.3.57[id number] 2.16.840.1.964392.3.57[id number] 2.16.840.1.880025.3.57[id number] 2.16.840.1.948051.3.57[id number] 2.16.840.1.926878.3.57[id number] 2.16.840.1.975849.3.579.2.516315-14-1159Lwvcdgw6083256 2.16.840.1.924918.3.579.2.976721-89-4387Iqwxigi5646946 2.16.840.1.002917.3.579.2.[id number] 2.16.840.1.193817.3.57[id number] 2.16.0.1.047005.3.579.2.596237-18-5277Ucnkadz4967994 2.0.1.632283.3.579.2.457847-12-3774Zmxzjlv7436778 2.16840.1.755146.3.57[id number] 2.0.1.311723.19 [facility] [id number] Effective for all dates [phone] [address] [address] [place] [address]vwcrf3870 1.2.840.742444.1.13.385.[id number] 2.16.840.1.830208.19 [id number] 2.16.840.1.454252.3.579.2.154Uvsvpno70589351 2.16.840.1.709415.3.579.2.393Uvdqpda63358004 2.16.840.1.153158.3.579.2.531 [id number] 2.16.840.1.039118.3.579.2.531 Social History DateTypeDetailFacilityTobacco smoking status NHISUnknown if ever smoked [facility]HealthStart: 06-85-1287Bhb Assigned At [facility] CenterNot on fileOhioHealthStart: 08-22-2020 End: 62-12-5209Ydansru smoking status NHISNever smokerOhioHealthStart: 08-22-2020 End: 85-07-1999Tbmsuuz use and exposureNever usedOhioHealthStart: 08-22-2020 End: 12-19-2413Nhimvbx intakeEx-drinker (finding)[facility]HealthStart: 09-04-2021 End: 76-39-0954Ztyijgka to SARS-CoV-2 (event)Not sureOhioHealthStart: 08-22-2020 End: 46-55-6705Vskzidqso pack-yearsOhioHealthStart: 12-17-2018 End: 33-05-4229Bhb Assigned At [facility] A-TEX Other Start: 38-78-0559Kxp Assigned At [facility]tart: 10-26-2017 End: 62-96-6575Pzdbiid intakeCurrent non-drinker of alcohol (finding)[facility] SystemNational Score (1-100), lower number is lower iiaf58WhgEmrsrnBucyrus Community Hospital SystemStart: 18-21-6218Hzmhoxo Nqrvhnh0808Etqbnqcto ClinicStart: 30-63-4569Hduwvg identityIdentifies as female gender (finding)[facility] SystemStart: 09-54-0284Eaviwf orientationHeterosexual (finding)[employer] SystemStart: 01-09-2015 End: 92-66-0386GrqGqfmpj (finding)[facility] Medical Equipment Procedure CodeEquipment CodeEquipment Original TextEquipment IdentifierDatesSut Anch Pushlk Bcmps 3.5x19.5 Ster Disp 5ea/Po Ln Required - Ness-1926bc - [id number] +[id number]/$$[id number]/NESS-1926BC, [id number]_imp FDAStart: 07-27-2017 Suture [place] Swivel - Svv8577yxb - [id number] +[id number]/$$[id number], [id number]_imp FDAStart: 07-27-2017 Fiberlink - Ness 7235 - [id number]: 17-34-0949Gzjfb Bn 54t8s5eb 1/3 Tblr 7 Hl Colr Lcp Ss .7mm 12mm Ns - Sna - [id number]: 28-02-1683Exkpf Bn 12mm 3.5mm [address] Lp Hd Sm Hex Sckt Jerrod Ss 2.5mm Rpl Special Item [id number] - Sna - [id number]_eeiJzhvy: 46-45-5339Nxakv Bn 14mm 3.5mm [address] Lp Sm Hex Jerrod Ss Ns Rpl Special Item [id number] - Sna - [id number]_bhgKxqhz: 00-33-3896Bhetd Bn 26mm 3.5mm [address] Lp Sm Hex Jerrod Ss Ns Rpl [id number] - Sna - [id number]: 57-68-5832Aputd Bn 16mm 4mm 6mm Sm Hex Sckt Canc Ss 2.5mm Ft Ns Sm - Sna - [id number]_kdrHlrhv: 12-09-2021 Goals DatePatient GoalDesired Activity/StatePersonal health goalComment on above: Evaluation of progress towards goal: Patient plans to discharge home with self care and with familyassistance Functional Status MhlgOcgipwmcigMmvdgoQnsoeing71-23-2049Rugbqahfjq statusPatient at Baseline [facility] Work Phone: Mental Status ViaiPccbatkemvMkwiqqPokbxdyy24-01-3269Mnhnltptf functionCognitive Status Patient at BaselineMer[facility] Work Phone: Clinical Notes 01-27-2021 to 03-06-2025 Note Date & LmwgBjopPtjflawy44-17-9793 History of Present illness Narrative* Xena Marrufo MD - 03/06/2025 2:10 PM EDT Nola Waller is a 64 y.o. female No ref. provider found presents with chief complaint of Follow-up and Thyroid Problem HPI: IM : 03/2025 Follow-up visit 03/06/2025 status post surgery for parathyroid 2 in the left 1 superiors on the right on 2024, calcium within normal limits in February/2025. Interim History 08/2024 Followup visit 08/29/2024 for lab. 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 She has bipolar disorder and she is on mg daily. SUBJECTIVE: MEDICATIONS: Current Outpatient Medications Medication Instructions clonazePAM (KLONOPIN) 1 mg, Nightly Docusate Sodium (DSS) 100 MG capsule lithium 600 mg, Nightly Misc Natural Products (Neuriva) capsule OLANZapine (ZyPREXA) 15 MG tablet 1 tablet, [...] Past Medical History: Diagnosis Date Ankle fracture Benign essential HTN 09/30/2024 Bipolar 1 disorder (HCC) Bipolar 1 disorder, manic, mild (HCC) 08/22/2020 Bipolar disorder, current episode mixed, severe, without psychotic features (HCC) 11/12/2024 Chronic kidney disease, stage 3b ([facility]) Complete tear of right rotator cuff 09/30/2024 Depression KALEN (generalized anxiety disorder) 08/22/2020 GERD (gastroesophageal reflux disease) Hallucinations 11/12/2024 Problem List clean-up per request of Phys. EHR Cmte Hypercalcemia Hyperlipidemia 11/12/2024 Hypernatremia 11/12/2024 Hyperparathyroidism (HCC) Hypertension Hyperuricemia 11/12/2024 Kidney disease Bejou use 11/12/2024 Nystagmus Other chronic pain 09/30/2024 S/P total hysterectomy with removal of both tubes and ovaries 10/18/2019 Schizoaffective disorder, bipolar type ([facility]) 10/28/2017 Schizophrenia ([facility]) 11/12/2024 Screening mammogram for breast cancer 11/12/2024 Severe mixed bipolar I disorder without psychotic features ([facility]) 09/30/2024 UTI (urinary tract infection) 11/12/2024 Problem List clean-up per request of Phys. EHR Cmte Visual loss Vitamin D deficiency, unspecified Past Surgical History: Procedure Laterality Date ADENOIDECTOMY HYSTERECTOMY KNEE SURGERY PARATHYROIDECTOMY 11/05/2024 TONSILLECTOMY WISDOM TOOTH EXTRACTION REVIEW OF SYMPTOMS: 14 POINT OF SYSTEM REVIEWED AND NEGATIVE OBJECTIVE: Visit Vitals BP 124/88 Pulse 72 Resp 16 Ht 5' 3 Wt 155 lb SpO2 96% BMI 27.46 kg/m Smoking Status Never BSA 1.77 m Physical Exam Constitutional: Appearance: Normal appearance. [...] Diagnoses and all orders for this visit: History of parathyroid surgery - Vitamin D 25 hydroxy Total; Future - Renal function panel; Future - PTH, intact; Future Status post surgery for 2 parathyroid on the left and 1 superior on the right calcium within normallimits in February/2025 Chronic kidney disease, stage 3b ([facility]) - Vitamin D 25 hydroxy Total; Future - Renal function panel; Future - PTH, intact; Future GFR 35 to follow with her passenger car inspector. Vitamin D deficiency - Vitamin D 25 hydroxy Total; Future - Renal function panel; Future - PTH, intact; Future Follow up in about 6 months (around 09/04/2025). documented in this encounterMercy hospital springfieldEkcjysvtfo81-20-4664 Evaluation note* Diagnosis Onset Date Resolution Status Admit Date CKD (chronic kidney disease) stage 3, GF R 30-59 ml/min acuteSeptember 2024 1:20pmHyperparathyroidismacuteSeptember 2024 1:20pmMedicare annual wellness visit, subsequentacuteSeptember 2024 1:20pm Screening mammogram for breast canceracuteSept2024 1:20pm [facility] Work Phone: 1(291) 148-348409-15-2025 Evaluation note* Diagnosis Onset Date Resolution Status Admit Date CKD (chronic kidney disease) stage 3, GF R 30-59 ml/min acuteSeptember 2024 1:20pmHyperparathyroidismacuteSeptember 2024 1:20pmMedicare annual wellness visit, subsequentacutept2024 1:20pm Screening mammogram for breast canceracutept2024 1:20pmViral URI with coughacuteOctober 2024 9:36amCKD (chronic kidney disease) stage 3, GFR 30-59 ml/minacuteOctober 2024 2:55pmHypercalcemiaacuteOctober 2024 2:55pmHyperlipidemiaacuteOctober 2024 2:55pmHypernatremiaacuteOctober 2024 2:55pmHyperparathyroidismacuteOctober 2024 2:55pmHyperuricemia acuteOctober 2024 2:55pm [facility] Work Phone: 1(125) 731-929508-21-2025 Miscellaneous Notes* Perioperative Nursing Note - Esmer Kidd RN - 01/24/2025 12:00 PM EDT Preoperative Education Checklist- General Surgery date: 01/31/25 Surgery time: 0730 Arrival time: 0610 1. Bring a photo ID and your insurance card with you the day of surgery. You will check in at the main lobby of the [facility]- registration desk is straight ahead as soon as you walk in. Tell them you are here for surgery. 2. If you have a Living Will/Durable Power of Corrosion Prevention Metal Sprayer for Health Care that is not on file here, please bring a copy the day of surgery. 3. Please shower/bathe the night before surgery with the provided soap or wipes. Do not shower the morning of surgery- you will do use wipes when you arrive here at the hospital before getting into your surgical gown. Do not shave the area of your procedure for 2 days prior to your surgery. 4. NO powder, lotion, perfume/cologne, aftershave, make-up, deodorant, or hair products after you have bathed. 5. NO nail german/acrylic on at least one finger. If you are having a hand, wrist or foot surgery then all nail german and artificial/acrylic nails must be removed from that hand or foot. 6. Avoid ALL Aspirin and non-steroidal anti-inflammatory drugs and certain vitamins (Ibuprofen, Advil, Aleve, Excedrin, Meloxicam, Celebrex, fish/krill oil, etc.) for 7 days prior to surgery as instructed by your surgeon and/or your prescribing doctor. Tylenol IS ALLOWED. If you are on Ticlid, Xarelto, Eliquis, Pradaxa, Plavix or Coumadin, please check with your prescribing doctor for instructions for when to stop them. 7. If you use an inhaler, continue to use it routinely. 8. Nothing to eat or drink (not even water, gum, mints, or hard candy!) AFTER midnight prior to your surgery. 9. Take only medications that you are instructed to on the morning of surgery with a TINY SIP OF WATER. 10. Choose a responsible adult that will be able to drive you home when you are discharged from your hospital stay for your surgery and can stay with you in your home for 24 hours after your procedure. You must NOT drive any vehicle or operate any machinery for 24 hours after surgery. 11. When you dress for your appointment, please wear loose fitting clothing that is appropriate to accommodate your surgical area procedure. BRING WITH YOU ANY DEVICES YOU MAY NEED: NIC hose, ice machine, sling/swath, brace or special shoe, oversized zip-up or button up shirt, CPAP machine if staying overnight. 12. Do NOT wear jewelry, watches, or any piercings or metal for surgery- leave these valuables and money at home. 13. Do NOT wear contact lenses for surgery- glasses are okay if needed. 14. The anesthesiologist will talk with you the day of surgery and will ask you to sign a Consent Form. 15. Refrain from smoking or any type of tobacco use for at least 8 hours and marijuana for 24 hoursprior to arrival for your surgery. 16. Notify your surgeon if you develop any illness before your surgery. 17. If you are staying overnight, please DO NOT BRING your home medications with you. 18. If you have any questions prior to surgery, please call the Preadmission Testing office at [phone], Mon.-Fri. 7 a.m.-3 p.m. Leave a voicemail if needed. Pre-Surgery Instructions: Medication Instructions repxg-uc-5-ued-vnd-ldmihkj-ast (KRILL OIL) 1,058-360-79-80 mg capsule Stop taking 1 week prior to procedure NON FORMULARY Stop taking 0 days prior to procedure clonazePAM (KlonoPIN) 1 mg tablet Stop taking 0 days prior to procedure lithium 600 MG capsule Stop taking 0 days prior to procedure OLANZapine (ZyPREXA) 15 mg tablet Stop taking 0 days prior to procedure sod sulf-pot chloride-mag sulf 1.479-0.188- 0.225 gram tablet Stop taking 0 days prior to procedure documented in this encounterMetroHealth [facility] Center08-21-2025 Nurse Note* Perioperative Nursing Note - Esmer Kidd RN - 01/24/2025 12:00 PM EDT Preoperative Education Checklist- General Surgery date: 01/31/25 Surgery time: 0730 Arrival time: 06 1. Bring a photo ID and your insurance card with you the day of surgery. You will check in at the main lobby of the [facility]- registration desk is straight ahead as soon as you walk in. Tell them you are here for surgery. 2. If you have a Living Will/Durable Power of Corrosion Prevention Metal Sprayer for Health Care that is not on file here, please bring a copy the day of surgery. 3. Please shower/bathe the night before surgery with the provided soap or wipes. Do not shower the morning of surgery- you will do use wipes when you arrive here at the hospital before getting into your surgical gown. Do not shave the area of your procedure for 2 days prior to your surgery. 4. NO powder, lotion, perfume/cologne, aftershave, make-up, deodorant, or hair products after you have bathed. 5. NO nail german/acrylic on at least one finger. If you are having a hand, wrist or foot surgery then all nail german and artificial/acrylic nails must be removed from that hand or foot. 6. Avoid ALL Aspirin and non-steroidal anti-inflammatory drugs and certain vitamins (Ibuprofen, Advil, Aleve, Excedrin, Meloxicam, Celebrex, fish/krill oil, etc.) for 7 days prior to surgery as instructed by your surgeon and/or your prescribing doctor. Tylenol IS ALLOWED. If you are on Ticlid, Xarelto, Eliquis, Pradaxa, Plavix or Coumadin, please check with your prescribing doctor for instructions for when to stop them. 7. If you use an inhaler, continue to use it routinely. 8. Nothing to eat or drink (not even water, gum, mints, or hard candy!) AFTER midnight prior to your surgery. 9. Take only medications that you are instructed to on the morning of surgery with a TINY SIP OF WATER. 10. Choose a responsible adult that will be able to drive you home when you are discharged from your hospital stay for your surgery and can stay with you in your home for 24 hours after your procedure. You must NOT drive any vehicle or operate any machinery for 24 hours after surgery. 11. When you dress for your appointment, please wear loose fitting clothing that is appropriate to accommodate your surgical area procedure. BRING WITH YOU ANY DEVICES YOU MAY NEED: NIC hose, ice machine, sling/swath, brace or special shoe, oversized zip-up or button up shirt, CPAP machine if staying overnight. 12. Do NOT wear jewelry, watches, or any piercings or metal for surgery- leave these valuables and money at home. 13. Do NOT wear contact lenses for surgery- glasses are okay if needed. 14. The anesthesiologist will talk with you the day of surgery and will ask you to sign a Consent Form. 15. Refrain from smoking or any type of tobacco use for at least 8 hours and marijuana for 24 hoursprior to arrival for your surgery. 16. Notify your surgeon if you develop any illness before your surgery. 17. If you are staying overnight, please DO NOT BRING your home medications with you. 18. If you have any questions prior to surgery, please call the Preadmission Testing office at [phone], Mon.-Fri. 7 a.m.-3 p.m. Leave a voicemail if needed. Pre-Surgery Instructions: Medication Instructions eaxwo-mi-5-ixu-ceh-emwmqra-ast (KRILL OIL) 1,225-285-62-80 mg capsule Stop taking 1 week prior to procedure NON FORMULARY Stop taking 0 days prior to procedure clonazePAM (KlonoPIN) 1 mg tablet Stop taking 0 days prior to procedure lithium 600 MG capsule Stop taking 0 days prior to procedure OLANZapine (ZyPREXA) 15 mg tablet Stop taking 0 days prior to procedure sod sulf-pot chloride-mag sulf 1.479-0.188- 0.225 gram tablet Stop taking 0 days prior to procedure [facility]08-08-2025 History of Present illness Narrative* Radha Penaloza, PHARMACY AIDE-SURGICAL CODER - 01/11/2025 12:00 PM EDT Images from the original note were not included. Chief Complaint: History of colon polyps History of Present Illness Nola Waller is a 64 y.o. female who presents to the office for surveillance colonoscopy. Her last colonoscopy was in 2021. She had a tubulovillous adenoma in the splenic flexure and descending colon. She endorses chronic constipation. She denies abdominal pain and rectal bleeding. There is a family history of colon cancer in her mother. Review of Systems Constitutional: Negative for fever and unexpected weight change. HENT: Negative for trouble swallowing. Respiratory: Negative for shortness of breath. Cardiovascular: Negative for chest pain. Gastrointestinal: Positive for constipation. Negative for abdominal pain, diarrhea and blood in stool. Genitourinary: Negative for dysuria and difficulty [...] stage 3, sees Dr. Zachary Pascual in [place] [facility] Depression Pelvic mass Pneumonia 08/18/2019 admitted for overnight, took antibiotic and resolved Primary hypertension Rosacea Seasonal allergies Varicella 1966 Visual impairment glasses Past Surgical History: Procedure Laterality Date ARTHROSCOPY SHOULDER Right 07/27/2017 Performed by Steve Valentin DO at [facility] BREAST BIOPSY Left 2015 benign, needle bx. COLONOSCOPY every 5 years, approx 2016 for last COLONOSCOPY N/A 09/07/2021 Performed by Jose Rafael Posadas DO at [facility] CYSTOSCOPY N/A 10/09/2019 Performed by Merritt Trinidad MD at [facility] DILATION AND CURETTAGE OF UTERUS x 2, in the remote past HYSTERECTOMY 2020 KNEE SURGERY years ago right, scope LAPAROSCOPIC HYSTERECTOMY / RSO / EXCISION PELVIC MASS N/A 10/09/2019 Performed by Merritt Trinidad MD at [facility] OOPHORECTOMY OPEN REDUCTION INTERNAL FIXATION ANKLE TRIMALLEOLAR Right 12/09/2021 Performed by Steve Valentin DO at [facility] PARATHYROIDECTOMY TONSILLECTOMY 1963 Allergies Allergen Reactions Stelazine [Trifluoperazine] muscle cramps [...] total) by mouth nightly., Disp: , Rfl: sod sulf-pot chloride-mag sulf 1.479-0.188- 0.225 gram tablet, Please see instructional sheet givenby physicians office., Disp: 24 tablet, Rfl: 0 Social History Socioeconomic History Marital status: Spouse name: Not on file Number of children: Not on file Years of education: Not on file Highest education level: Not on file Occupational History Not on file Tobacco Use Smoking status: Never Smokeless tobacco: Never Vaping Use Vaping status: Never Used Substance and Sexual Activity Alcohol use: No Drug use: No Sexual activity: Not Currently Partners: Male control/protection: Surgical Other Topics Concern Not on file Social History Narrative Not on file Social Drivers of Health Financial Resource Strain: Not on [...] Relation Age of Onset Colon cancer Mother age 56 (1988) Arthritis Mother Diabetes Father Diabetes 2 Dementia Father Lymphoma Brother Heart attack Brother [...] to light. Cardiovascular: Rate and Rhythm: Normal rate. Pulmonary: Effort: Pulmonary effort is normal. No respiratory distress. Abdominal: General: There is no distension. Musculoskeletal: General: Normal range of motion. Skin: General: Skin is warm and dry. Neurological: Mental Status: She is alert and oriented to person, place, and time. Mental status is at baseline. Vital Signs: Blood pressure 117/72, height 160 cm (5' 3 ), weight 69.9 kg (154 lb), not currently . Respiratory Source: No data recorded Admission Weight: Weight: 69.9 kg (154 lb) Labs Lab Results Component Value Date WBC [...] 13.4 (H) 12/09/2021 PROTIME 13.5 (H) 08/18/2019 Assessment History of tubulovillous adenoma on colonoscopy 2021 Family history of colon cancer in mother Plan Colonoscopy with possible biopsy and/or polypectomy. Risks, benefits, and alternatives discussed with patient. Patient verbalizes understanding and wishes to proceed. Evaluation included: Preparing to see the patient (e.g., review of tests) Obtaining and/or reviewing separately obtained history Performing a medically appropriate examination and/or evaluation Counseling and educating the patient/family/caregiver Referring and communicating with other health adult care manager Encounter for colonoscopy due to history of colonic polyp [Z12.11, Z86.0100] MIRIAM GOLD [facility] General Surgery [place] This note was created with the assistance of a speech recognition program. While intending to generate a timely document that accurately reflects the content of the visit, no guarantee can be provided that every grammatical or spelling mistake has been or will be identified or corrected. Thank you for your understanding. MIRIAM Gold 01/11/25 1221 documented in this encounter[facility] History of Present illness Narrative* Conrad Mccullough, - 11/12/2024 4:00 PM EDT HPI Patient presents today 1 week postop subtotal parathyroidectomy for primary hyperparathyroidism. I ended up taking out both left parathyroids and the right superior parathyroid. We got appropriate drops and PTH after that. Today her calcium is 9.6, her PTH is 29. He is doing fine. Relevant postoperative physical examination Neck incision intact, no evidence of hematoma or seroma. Assessment/plan Nola was seen today for post-op. Diagnoses and all orders for this visit: History of parathyroidectomy Comments: Patient given wound instructions, I will see her back in 3 months with lab work Orders: - Cancel: Vitamin D 25 hydroxy Total; Future - Cancel: PTH, intact; Future - Cancel: Calcium; Future - Cancel: Vitamin D 25 hydroxy Total - Cancel: PTH, intact - Cancel: Calcium - Vitamin D 25 hydroxy Total; Future - PTH, intact; Future - Calcium; Future - Vitamin D 25 hydroxy Total - PTH, intact - Calcium documented in this encounterMercy hospital [id number] History of Present illness Narrative* Conrad Mccullough DO - 11/05/2024 8:00 AM EDT mmm documented in this encounterMercy hospital [id number] History of Present illness Narrative* Conrad Mccullough DO - 10/15/2024 2:30 PM EDT Allergies as of 10/15/2024 - Reviewed 10/01/2024 Allergen Reaction Noted Chlorpromazine 12/19/2014 Trifluoperazine 10/03/2019 Past Medical History: Diagnosis Date Ankle fracture Benign essential HTN (CMS/HCC) 09/30/2024 Bipolar 1 disorder ([facility]) Bipolar 1 disorder, manic, mild (CMS/[facility]) 08/22/2020 Chronic kidney disease, stage 3b (HCC) ([facility]) Complete tear of right rotator cuff 09/30/2024 Depression (CMS/[facility]) KALEN (generalized anxiety disorder) (CMS/[facility]) 08/22/2020 GERD (gastroesophageal reflux disease) Hypercalcemia Hyperparathyroidism (CMS/HCC) Hypertension (CMS/HCC) Kidney disease Nystagmus Other chronic pain 09/30/2024 S/P total hysterectomy with removal of both tubes and ovaries 10/18/2019 Schizoaffective disorder, bipolar type (CMS/[facility]) 10/28/2017 Severe mixed bipolar I disorder without psychotic features ([facility]) 09/30/2024 Visual loss Vitamin D deficiency, unspecified Current Outpatient Medications: clonazePAM (KlonoPIN) 1 MG tablet, Take 1 mg by mouth at bedtime, Disp: , Rfl: Docusate Sodium (DSS) 100 MG capsule, , Disp: , Rfl: lithium 600 MG capsule, Take 600 mg by mouth at bedtime, Disp: , Rfl: Misc Natural Products (Neuriva) capsule, , Disp: , Rfl: OLANZapine (ZyPREXA) 15 MG tablet, Take 1 tablet by mouth Daily, Disp: , Rfl: omega-3 (fish oil) 1000 MG capsule, 1 capsule 1 (one) time each day at the same time, Disp: , Rfl: Past Surgical History: Procedure Laterality Date ADENOIDECTOMY HYSTERECTOMY KNEE SURGERY TONSILLECTOMY WISDOM TOOTH EXTRACTION Social History Socioeconomic History Marital status: Spouse name: Not on file Number of children: Not on file Years of education: Not on file Highest education level: Not on file Occupational History Not on file Tobacco Use Smoking status: Never Smokeless tobacco: Never Substance and Sexual Activity Alcohol use: Not Currently Drug use: Not on file Sexual activity: Not on file Other Topics Concern Not on file Social History Narrative Not on file Social Drivers of Health Financial Resource Strain: Not on file Food Insecurity: Unknown (09/05/2023) Received from [facility] Hunger Screening Within the past 12 months we worried whether our food would run out before we got money to buy more.: Never True Food Insecurity - Inability: Not on file Transportation Needs: Not on file Physical Activity: Not on file Stress: Not on file Social Connections: Not on file Intimate Partner Violence: Not on file Housing Stability: Not on file Subjective Patient ID: HPI Patient presents today following 4D CT scanning as well as sestamibi scanning for hyperparathyroidism. I personally reviewed both of these. The sestamibi scan is faintly positive on the left side andthe 4D CT scan shows what appears to be a mildly enlarged left inferior parathyroid gland that is against the cervical spine deep within the TE groove. I showed the patient the images. Review of Systems ROS The specialty specific review of systems is noncontributory except for that recorded in the intake questionnaire and /or described in the history of present illness. Objective ENT Physical Exam Physical Exam Constitutional: Appearance: Normal appearance. HENT: Head: Atraumatic. Ears: External ear shows no abnormality Bilateral ear canals are clear Tympanic membranes intact, no evidence of middle ear fluid or other pathology. Nose: External nose appears to be normal Nares patent. Septal deviation to the left No evidence of polyp, mass or pus bilaterally. Oral Cavity: No evidence of trismus Lips appear normal Dental good Tongue of normal size and configuration, floor of mouth mucosa clear. Buccal mucosa shows no evidence of ulceration, mass or other abnormality Hard palate soft palate mucosa intact with no evidence of mass, ulceration or other abnormality Uvula of normal size and configuration Oropharynx: Tonsils Posterior pharyngeal wall Neck: No evidence of palpable abnormality Thyroid without evidence of thyromegaly or mass. No cervical lymphadenopathy present. Cardiovascular: Rate and Rhythm: Normal rate and regular rhythm. . Skin: General: Skin is warm and dry. Neurological: General: No focal deficit present. Mental Status: alert and oriented to person, place, and time. FIBEROPTIC NASOPHARYNGOLARYNGOSCOPY A diagnostic flexible fiberoptic laryngoscopy was performed. The flexible fiberoptic laryngoscope was placed into the nose and advanced to the level of the tip of the epiglottis. Examination of the larynx including both surfaces of the epiglottis false and true vocal folds, arytenoids and surrounding mucosal surfaces show no evidence of lesion, ulceration or mass. Normal bilateral true vocal foldmotion is present. Bilateral piriform sinuses and base of tongue appear without lesion Assessment/Plan Nola was seen today for hypercalcemia. Diagnoses and all orders for this visit: Hypercalcemia Comments: See below Orders: - PTH, intact; Future - Calcium; Future - Vitamin D 25 hydroxy Total; Future - PTH, intact - Calcium - Vitamin D 25 hydroxy Total Hyperparathyroidism ([facility]) Comments: I recommended parathyroidectomy. Orders: - PTH, intact; Future - Calcium; Future - Vitamin D 25 hydroxy Total; Future - PTH, intact - Calcium - Vitamin D 25 hydroxy Total The risks and benefits of parathyroidectomy were discussed with the patient. These include but are not inclusive of perioperative , infection, poor scarring,failure to find the adenoma, failure to control hyperparathyroidism, need for additional surgery, permanent RLN dysfx, permanent hypoparathyroidism, etc. The patient has consented to proceed. documented in this encounterMercy hospital [id number] Nuclear medicine Diagnostic study [facility] [place] [address] [place] [address] Nuclear Medicine Report Signed Patient: Nola Waller MR#: [id number] : 1960 Acct:[id number] Age/Sex: 63 / F ADM Date: 5 Loc: CT Room: Type: [facility] Attending Dr: Conrad Mccullough DO Copies to: DO Yves Sherman II, MD~ Ordering Provider: Conrad Mccullough DO Date of Service: 10/12/24 NM/NM*parathyroid SPECT*: Hypercalcemia /Hyperparathyroidism NM*parathyroid SPECT* 10/12/2024 9:09 AM SIGNS AND SYMPTOMS: Hypercalcemia /Hyperparathyroidism PROTOCOL: Scintigraphic images of the neck were obtained at 15 minutes and 2 hours after intravenous radiotracer administration. SPECT images were obtained and reconstructed in axial, sagittal, coronal, and 3-D planes. COMPARISON: 10/12/2024 RADIOPHARMACEUTICAL: 24.0 mCi of intravenous technetium 99m sestamibi FINDINGS: There is symmetric radiotracer accumulation within the thyroid lobes as well as the salivary glands. There is a subtle focus of persistent radiotracer accumulation which is best seen on SPECT images posterior to the left thyroid lobe corresponding to the lesion seen on the soft tissue neck CT from the same date. This is suspicious for the presence of a parathyroid adenoma. NM/NM*parathyroid SPECT* IMPRESSION: There is a subtle focus of persistent radiotracer accumulation which is best seen on SPECT images posterior to the left thyroid lobe corresponding to the lesion seen on the soft tissue neck CT from the same date. This is suspicious for the presence of a parathyroid adenoma. Impression dictated by: Yves Maier M.D. 10/12/2024 3:07 PM Dictation Location: [place] [address] Transcribed By: [facility] 10/12/24 1509 Dictated By: Yves Maier II, MD 10/12/24 1451 Signed By: 10/12/24 1503 [facility] Work Phone: 1(213) 279-135705-09-2025 Radiology Diagnostic study [facility] [place] [address] [place] [address] CT Scan Report Signed Patient: Nola Waller MR#: [id number] : 1960 Acct:[id number] Age/Sex: 63 / F ADM Date: 5 Loc: CT Room: Type: [facility] Attending Dr: Conrad Mccullough DO Copies to: Conrad Mccullough DO~ Ordering Provider: Conrad Mccullough DO Date of Service: 10/12/24 CT/CT neck 4D parathyroid: Hyperparathyroidism /Hypercalcemia 4D CT soft tissue neck performed without and with contrast INDICATION: Hyperparathyroidism, hypercalcemia COMPARISON:: Parathyroid nuclear medicine scan 10/12/2024 TECHNIQUE: Spiral images were obtained through the soft tissues of the neck without and with administration of intravenous contrast per 4D parathyroid protocol. This CT exam was performed using one or more following dose reductiontechniques: Automated exposure control, adjustment of the mA and/or kV accordingto patient size, or use of iterative reconstruction technique. FINDINGS: Heterogeneous appearance of thyroid gland. Nonenlarged thyroid gland. Candidate lesion image 79, near the tracheoesophageal groove posterior medial tothe left thyroid lobe demonstrates low attenuation on noncontrast images and demonstrates arterial phase enhancement and rapid washout. This measures 5.7 mmin size. No additional candidate lesions identified. Bovine arch. Oropharyngeal, pericolonic epiglottic tissues unremarkable. Trachea is unremarkable. Nasopharyngealsoft tissues unremarkable. Submandibular glands unremarkable. No pathologic adenopathy. Lung apicesclear. Degenerative changes of the cervical spine spine. CT/CT neck 4D parathyroid IMPRESSION: 8 mm candidate lesion near the tracheal esophageal groove posterior medial to the left thyroid lobe. This demonstrates arterial phase enhancement with rapid washout Impression dictated by: Kyle Bhagat M.D. 10/12/2024 12:26 PM Dictation Location: [place] [address] Transcribed By: TAY 10/12/24 1226 Dictated By: Kyle Bhagat MD 10/12/24 1211 Signed By: 10/12/24 1226 [facility] Work Phone: 1(188) 715-940504-28-2025 History of Present illness Narrative* Conrad Mccullough DO - 10/01/2024 2:30 PM EDT Subjective Patient ID: HPI 63-year-old female referred by Dr. Marrufo for possible primary hyperparathyroidism. Patient's mostrecent lab work shows a PTH of 150, calcium of 10.2 which is barely above the high end of normal. Complicating the fact is the patient has stage III renal failure and is a chronic lithium taker secondary to bipolar disorder. No family history of the same. Asymptomatic. Patient has never had a DEXA scan. Review of Systems ROS The specialty specific review of systems is noncontributory except for that recorded in the intake questionnaire and /or described in the history of present illness. Objective ENT Physical Exam Physical Exam Constitutional: Appearance: Normal appearance. HENT: Head: Atraumatic. Ears: External ear shows no abnormality Bilateral ear canals are clear Tympanic membranes intact, no evidence of middle ear fluid or other pathology. Nose: External nose appears to be normal Nares patent. Septal deviation to the right No evidence of polyp, mass or pus bilaterally. Oral Cavity: No evidence of trismus Lips appear normal Dental good Tongue of normal size and configuration, floor of mouth mucosa clear. Buccal mucosa shows no evidence of ulceration, mass or other abnormality Hard palate soft palate mucosa intact with no evidence of mass, ulceration or other abnormality Uvula of normal size and configuration Oropharynx: Tonsils Posterior pharyngeal wall Neck: No evidence of palpable abnormality Thyroid without evidence of thyromegaly or mass. No cervical lymphadenopathy present. Cardiovascular: Rate and Rhythm: Normal rate and regular rhythm. . Skin: General: Skin is warm and dry. Neurological: General: No focal deficit present. Mental Status: alert and oriented to person, place, and time. THYROID ULTRASOUND EXAMINATION Indication: Thyroid nodule After informed consent was obtained the patient was placed supine on the examining table. Patient was asked to extend the neck. Topical ultrasound jelly was used. The right lobe of the thyroid gland measures _ 4.8 cm in greatest dimension. Multiple subcentimeter hypoechoic nodules scattered throughout the parenchyma with no untoward ultrasonic features.Nothing in the surrounding tissue suggestive of an enlarged parathyroid gland The isthmus is unremarkable. The left lobe of the thyroid gland measures _ 4.6 cm greatest dimension. Multiple subcentimeter hypoechoic nodules scattered throughout the parenchyma without untoward ultrasound features, possibly a enlarged inferior parathyroid gland measuring about 1.5 cm though not very typical. There is no adenopathy in the central compartment. There is no appreciable adenopathy in either lateral neck. Assessment/Plan Nola was seen today for hypercalcemia. Diagnoses and all orders for this visit: Hypercalcemia Comments: I am going to obtain a 4D CT scan and sestamibi scan and see her back following that. I am also going to obtain a DEXA scan. Orders: - Ambulatory referral to ENT Hyperparathyroidism ([facility]) Comments: See above Orders: - Ambulatory referral to ENT - CT 4D PARATHYROID; Future - NM parathyroid spect; Future - CT 4D PARATHYROID - NM parathyroid spect documented in this encounterMercy hospital [id number] Evaluation note* Diagnosis Onset Date Resolution Status Admit Date CKD (chronic kidney disease) stage 3, GF R 30-59 ml/min acuteApril 2024 3:45pmHypercalcemiaacuteApril 2024 3:45pm HyperlipidemiaacuteApril 2024 3:45pmHypernatremiaacuteApril 2024 3:45pmHyperparathyroidismacuteApril 2024 3:45pmHyperuricemiaacuteApril 2024 3:45pm [facility] Work Phone: 1(447) 758-406903-26-2025 History of Present illness Narrative* Xena Marrufo MD - 08/29/2024 1:50 PM EDT Nola Waller is a 63 y.o. female Xena Marrufo MD presents with chief complaint of Thyroid Problem and Follow-up (LAB) HPI: Interim History 08/2024 Followup visit 08/29/2024 for lab. [id number] (15-65), GFR 31,clacium 10.4 (8.7- 10.2), vitamin D 38 Interim History 08/2023 Followup [...] off calcium supplement or multivitamin and her passenger car inspector thinks she might have primary hyperparathyroidism. She has bipolar disorder and she is on [id number] mg daily. SUBJECTIVE: MEDICATIONS: Current Outpatient Medications [...] Diagnosis Date Ankle fracture Bipolar 1 disorder ([facility]/HCC) Chronic kidney disease, stage 3b (HCC) ([facility]) Depression ([facility]CC) GERD (gastroesophageal reflux disease) Hypercalcemia Hyperparathyroidism (CMS/HCC) Hypertension ([facility]/HCC) Kidney disease Nystagmus Visual loss Vitamin D [...] to Dr. Mccullough for possible surgery Hyperparathyroidism ([facility]/HCC) - Ambulatory referral to ENT; Future Vitamin D deficiency Vitamin-D 38. Chronic kidney disease, stage 3b (HCC) ([facility]) GFR 31 Follow up in about 4 months (around 12/29/2024). documented in this encounterMercy hospital [id number] NoteHNO ID: [id number] Author: CHRISTINE BROWN OD Service: ? Author Type: CRA Type: Progress Notes Filed: 07/04/2024 09:40 Note Text: Nola is a pleasant 63 year old female with the following conditions: 1. Downbeat nystagmus 2. Hypertropia of right eye Workup and diagnosed by Dr. Alcantara in 2019, likely due to Bejou medication due to normal MRI Recent dilated [...] resolved once putting them on! Struggling in jain with separate reading vs distance prism. Tried bifocals in past and did not adjust well. Can try lined bifocals in future as needed Continue with Dr. Cehn for dilated fundus exams, me as needed for specs Pleasure to take care of her today. Christine Brown [facility]DS[facility] History of Present illness Narrative* Christine Brown OD - 07/04/2024 9:38 AM EST Nola is a pleasant 63 year old female with the following conditions: 1. Downbeat nystagmus 2. Hypertropia of right eye Workup and diagnosed by Dr. Alcantara in 2019, likely due to Bejou medication due to normal MRI Recent dilated [...] resolved once putting them on! Struggling in jain with separate reading vs distance prism. Tried bifocals in past and did not adjust well. Can try lined bifocals in future as needed Continue with Dr. Chen for dilated fundus exams, me as needed for specs Pleasure to take care of her today. Christine Brown OD documented in this encounterSt[facility] NoteHNO ID: [id number] Author: CHRISTINE BROWN OD Service: ? Author Type: CRA Type: Progress Notes Filed: 05/23/2024 11:37 Note Text: Nola is a pleasant 63 year old female ; accompanied and history given by ; with the following conditions: 1. Downbeat nystagmus 2. Hypertropia of right eye Workup and diagnosed by Dr. Alcantara in 2019, likely due to Bejou medication due to normal MRI Recent dilated [...] take care of her today. Christine Brown [facility]DSamar[facility]12-18-2024 History of Present illness Narrative* Christine Brown, BONNIE - 05/23/2024 11:34 AM EST Nola is a pleasant 63 year old female ; accompanied and history given by ; with the following conditions: 1. Downbeat nystagmus 2. Hypertropia of right eye Workup and diagnosed by Dr. Alcantara in 2019, likely due to Bejou medication due to normal MRI Recent dilated fundus exam by Dr. Chen Reviewed records Stable normal dilated fundus exam Patient goal is to optimize vision Uses over the counter readers for near, occasional diplopia, will close one eye Low prescription distance Demo'd in trial frame, patient does NOT have diplopia with trial frame at distance but does have itwithout prescription at distance Patient is happy with [...] today. Christine Brown OD documented in this encounterSt. [facility] Instructions* Patient Instructions* Christine Brown, BONNIE - 05/23/2024 10:51 AM EST Line guide: [email or web address]-[email or web address]/ ref=sr_1_32?oksana=eyJ2 IjoiMSJ9.nDTZOE--jEzt9oVWuu727KX8cbkeQWOastbACiTxGZV7cRu10BOohGWMaCKTPT5ZG2iKKix 34n_ZJzxWgbqX_d7kVRg d8PISqZ-oUZn_OPwdjAorXiHT_jULuL8n9Npu3FdTglL6iVWuv6D8mNhRovnmTL9lcPXoFs964NEn2A_ K4rE3yI8BvQKXD18cZo2 lJ3uFD1iBlXs-q0gmGQCWbhLtETBVGSAaLpnhQ-jTQJvGCxsBRs9w1gCoG_89QId-FV5oYCf_xql2yND BTEae14XXmjGw0k7Uv2L 11OlOTYBqco0U39c19LiP4aDDPeZiotOVsWASakTAnwV5STX0E7Ct_tcqWgHxNBqM6Vvs9YCtx6KkzMe hSH4p-uY-rcAfO8Qw3Nt Or-I0l5jus4gCeid_h82pXuo0V0O1ZdvVto-MWII-936soZJgwMCt-kWf.QCeOtTvKkO5phg6-JowQkr bvrAgg1F3Rn7rShoSyQ_o&dib_tag=se&keywords=Line+Guide&lch=[id number]&sr=8-32 documented in this encounterSt. [facility]11-08-[facility]24 History of Present illness Narrative* Vandana Chen DO - 04/13/2024 10:30 AM EST Images from the original note were not included. Assessment/Plan Diagnoses and all orders for this visit: Downbeat nystagmus - I shared with Mrs. Waller and her my belief that her nystagmus was secondary to Bejou usage. Although her plasma levels are normal [...] pt greater than 60minutes documented in this encounterMercy hospital [id number] History of Present illness Narrative* Ruby Love OT - 02/10/2024 9:00 AM EDT Occupational Therapy Occupational Therapy Evaluation Visit Patient Name: Nola Waller Today's Date: 02/10/2024 Linked Episodes Type: Episode: Status: Noted: Resolved: Last update: Updated by: Occupational Therapy R wrist fx Active 01/30/2024 02/10/2024 9:46 AM Ruby Love OT Comments:Episode created from referral [id number] Visit number: 1 Subjective Interim History: 63 [...] 4+/5. Supination: 4+/5. Strength additional comments: R babcock tester strength: 35# LP: 12# L babcock tester strength: 45# LP: 9# Neurovascular Left Left [...] good toleration. HEP established for wrist stretches/ babcock tester strengthening/ wrist strengthening. Written handout provided along [...] Please sign below. Date: documented in this encounterMercy hospital [id number] History of Present illness Narrative* Gretchen Jensen, TEENA - 01/30/2024 1:30 PM EDT Subjective Patient ID: Nola Waller is a 63 y.o. female. RT Wrist Fx. DOI 10/08/23. Only wears wrist immobilizer for cardio drumming, and states she thinks it would be fine if she didnot wear it. 3.5 months s/p tripped on a lip on concrete and fell landing on a cement step on the RT arm (DOI 10/08/23). Pt c/o right arm, wrist, and hand pain. Notes she only gets pain if she does something on accident that she shouldn't do/certain movements.She gets pain dorsum of wrist, on the radial aspect. Denies pain at rest. Pain at worst 3/10 a few weeks ago but since the pain has stopped. Denies N/T. Admits swelling in fingers, this has resolved. Denies pain meds. Denies ice, heat, or creams. Here with Michael [place]: Kristie Potts/ER/XR 10/08/23, sugar tong splint, [...] Therapy Will send her to O.T. in [place], f/U in 6-8 weeks, activities as tolerated documented in this encounterMercy hospital [id number] Hospital Discharge instructions* Discharge Instructions* Carrie Shipley APRN - CNP - 10/08/2023 7:34 PM EDT Tylenol or ibuprofen as directed jlur-rfp-dwmmgeb for mild to moderate pain. Percocet pain medication for severe pain no drinking alcohol or driving if taking this medication, this medication can be habit-forming and cause constipation if you become constipated please use rial-bob-ergxyhf stool softener with stimulant; remember this medication also contains Tylenol/acetaminophen. Return to the ER: Fevers, atypical headaches, weakness or mentation changes, vomiting, increased orworsening pain in the right arm, pale right hand fingers, numbness; or any other concerning symptoms. * Attachments The following attachments cannot be sent through Care Everywhere. * Splint or Immobilizer Use (Cameroonian) * RICE: General Info (Cameroonian) * Wrist Fracture (Cameroonian) documented in [facility] encounterB[facility] Miscellaneous Notes* Telephone Encounter - SHELDON Omalley - 09/22/2023 2:20 PM EDT Patients called in saying patient is constipated. [...] miralax. Patients verbalized understanding. [facility] Telephone encounter Note* Telephone Encounter - SHELDON Omalley - 09/22/2023 2:20 PM EDT Patients called in saying patient is constipated. [...] full of the miralax. Patients verbalized understanding. [facility]04-[facility] History of Present illness Narrative* Radha Penaloza, APPLE-SURGICAL CODER - 09/05/2023 3:00 PM EDT Images from the original note were not included. Chief Complaint: Constipation History of Present Illness Nola Waller is a 62 y.o. female who presents to the office for constipation. She has been constipated her whole life. She was previously taking a vitamin from an online doctor in [place] to promote regularity. She stopped taking this and has had trouble going ever since. She has not had a bowel movement since Tuesday. She has previously gone long stretches between bowel movements. She drinks 1 ga llon of water daily. She eats 1 serving of fiber daily. She is involved in yoga, drums and walks 20laps on Tuesday. She denies any diarrhea, rectal [...] Medical History: Diagnosis Date Anxiety Bipolar affective ([facility]) Chronic constipation takes miralax and colace daily, keeps under control Chronic kidney disease stage 3, sees Dr. Zachary Pascual in [place] Dental disease caps Depression Pelvic mass Pneumonia 08/18/2019 admitted for overnight, took antibiotic and resolved Primary hypertension Rosacea Seasonal allergies Visual impairment glasses Past Surgical History: Procedure Laterality Date ARTHROSCOPY SHOULDER Right 07/27/2017 Performed by Steve Valentin DO at [facility] BREAST BIOPSY Left 2015 benign, needle bx. COLONOSCOPY every 5 years, approx 2016 for last COLONOSCOPY N/A 09/07/2021 Performed by Jose Rafael Posadas DO at [facility] CYSTOSCOPY N/A 10/09/2019 Performed by Merritt Trinidad MD at [facility] DILATION AND CURETTAGE OF UTERUS x 2, in the remote past HYSTERECTOMY 2020 KNEE SURGERY years ago right, scope LAPAROSCOPIC HYSTERECTOMY / RSO / EXCISION PELVIC MASS N/A 10/09/2019 Performed by Merritt Trinidad MD at [facility] OOPHORECTOMY OPEN REDUCTION INTERNAL FIXATION ANKLE TRIMALLEOLAR Right 12/09/2021 Performed by Steve Valentin DO at [facility] Allergies Allergen Reactions Stelazine [Trifluoperazine] muscle cramps [...] patient/family/caregiver Referring and communicating with other health adult care manager Chronic constipation [K59.09] MIRIAM GOLD [facility] General Surgery [place] This note was created with the assistance of a speech recognition program. While intending to generate a timely document that accurately reflects the content of the visit, no guarantee can be provided that every grammatical or spelling mistake has been or will be identified or corrected. Thank you for your understanding. MIRIAM Gold 09/05/23 1533 documented in this encounterMet[facility]01-31-[facility]24 Evaluation note* Encounter Date Diagnosis Assessment Notes Treatment Notes Treatment Clinical Notes Jun, Well adult exam (ICD-10 - Z00.00 ) We have discussed the necessity of following [...] vaccinations that apply. All questions answered and p atient is sent home pleased, without concerns. [employer] Other 10-18-2023 Evaluation note* Encounter Date Diagnosis [...] advised her to avoid magnesium based laxatives Mar,Lithium use (ICD-10 - Z79.899)She has a bipolar disorder and currently takes lithium. Continue follow-up with psychiatrist and get periodically lithium level checked to avoid lithium toxicity. Mar,Hypercalcemia (ICD-10 - E83.52)She has hypercalcemia with hyperparathyroidism. She denies any intake of the calcium and vitamin D s upplement. She has unremarkable work-up for paraproteinemia. Mar,Hyperparathyroidism (ICD-10 - E21.3)She has hyperparathyroidism with hypercalcemia likely primary hyperparathyroidism. She was seen by Dr. Marrufo. Advised to continue to follow with Dr. Marrufo. [employer] Other 08-17-2023 Evaluation note* Encounter Date Diagnosis Assessment Notes Treatment Notes Treatment Clinical Notes Jan, Screening mammogram for breast c ancer (ICD-10 - Z12.31) Jan,astroenteritis (ICD-10 - K52.9)Explained to pt that they have a virus and is non-toxic. Explained antibiotics do not fight viruses. Educated pt on not overprescribing antibiotics. Clear liquids and advance as tolerated to BRAT diet. yogurt or probiotics. Plenty of fluids. good handwashing. Answered all questions. Pt in agreementwith tx. Pt sent home stable. If any new or worsening sx, go to ER or RTO. Symptoms have improved today [employer] Other 06-13-2023 Evaluation note* Encounter Date Diagnosis Assessment Notes Treatment Notes Treatment Clinical Notes Nov, Chronic kidney disease, stage 3b (ICD-10 - N18.32) She has a CKD likely due to the chronic interstitial nephritis due to the prolonged lithium use. Her serum creatinine is 1.7 mg/dL above her baseline serum creatinine 1.2 to 1.4 mg/dL. This is likelydue to the hemodynamic changes in setting of hypercalcemia. Advised her to adequately hydrate herself. She has no evidence of hematuria and proteinuria on UA. Her renal ultrasound showed bilateral renal cortical atrophy and bilateral renal cysts. I have advised her to avoid magnesium based laxatives Nov,Lithium use (ICD-10 - Z79.899)She has a bipolar disorder and currently takes lithium. Continue follow-up with psychiatrist and get periodically lithium level checked to avoid lithium toxicity. Nov,Hypercalcemia (ICD-10 - E83.52)She has hypercalcemia with hyperparathyroidism. She denies any intake of the calcium and vitamin D s upplement. Other possibility is paraproteinemia although she has hemoglobin so suspicion is low. Wewill order the work-up to rule it out. Nov,Hyperparathyroidism (ICD-10 - E21.3)She has hyperparathyroidism with hypercalcemia likely primary hyperparathyroidism. I referred her to gluing machine operator electronic Dr. Marrufo. [employer] Other 01-18-2023 History of Present illness Narrative* Gerald Adames MD - 06/23/2022 2:20 PM EST [...] plan was discussed with patient. Impression/ Plan: Reynolds I: Bipolar disorder, type I, most recent episode mixed, severe with psychosis , generalized anxiety disorder Reynolds II: Deferred Reynolds III: CKD stage III Reynolds IV: other psychosocial or environmental problems Reynolds V: 51-60 moderate symptoms Recommendations: Treatment Plan: [...] and Objectives discussed. Other Referrals/Consults/Psychological Testing: None Gerald Adames documented in this [id number] History of Present illness Narrative* Gerald Adames MD - 05/10/2022 8:23 PM EST Telephone Visit Via Phone Call [facility] [phone] Telephone Visit [facility] 04/26/2022 Gerald Adames MD Provider Location: [facility]. Patient Location Airplane Refueler: None Patient Location: Patient's Home Patient: Nola [...] there are inherent diagnostic limitations compared to xqlq-ia-fwyf evaluations. We elected toproceed with the telephone [...] She is tolerating the lithium well. Her passenger car inspector is on board with lithium as per [...] visit: Long-term use of high-risk medication - Bejou Level; Future Bipolar affective disorder, manic, severe, with psychotic behavior (HCC) - Bejou Level; Future Other orders - lithium (ESKALITH) [...] and Plan of Care. documented in this [id number] Evaluation note* Encounter Date Diagnosis Assessment Notes Treatment Notes Treatment Clinical Notes May, Chronic kidney disease, stage 3b (ICD-10 - [...] We will check her renal function again. May,Lithium use (ICD-10 - Z79.899)She has a bipolar disorder and currently takes lithium. Continue follow-up with psychiatrist and get periodically lithium level checked to avoid lithium toxicity. May,Hypermagnesemia (ICD-10 - E83.41)He has hypermagnesemia likely due to supplements. 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 Her Calcium, Phos and Vit D are normal. [employer] Other 11-15-2022 History of Present illness Narrative* Gerald Adames MD - 04/20/2022 11:32 AM EST BEHAVIORAL HEALTH PSYCHIATRIC PROGRESS NOTE 04/19/2022 Nola Waller, a 61 y.o. female, psychotropic medication management follow-up Patient is referred by Santa Augustin MD . Interval History: Patient is seen in office for psychotropic medication management follow-up and hospital follow-up. Patient was hospitalized at [facility] from 03/11 to 03/23/2022 for worsening [...] She has told her that she has seenJosephamilcarpayton Boss and Fidel Barakat in their home [...] plan was discussed with patient. Impression/ Plan: Reynolds I: Bipolar disorder, type I, most recent episode manic with psychosis Reynolds II: Deferred Reynolds III: CKD stage III Reynolds IV: other psychosocial or environmental problems Reynolds V: 51-60 moderate symptoms Recommendations: Treatment Plan: [...] and Objectives discussed. Other Referrals/Consults/Psychological Testing: None Gerald Adames documented in this [id number] Progress note Author Marco A Zaman [facility] March 22, 2022 3:02pmNote Date/TimeOct2021 3:00pm[place] [address] Psychiatry Progress Note Signed Patient: Nola Waller MR#: [id number] 1468 : 1960 Acct:[id number] Age/Sex: 61 / F Adm Date: 2 Loc: Room: [address] [place] [address] Type : ADM IN Attending Dr: Marco [...] little bit. He is concerned about some sundowning as the night visit tends to go [...] Documented By: Marco A Zaman MD 03/22/22 9896 Signed By: <Electronically signed by Marco A Zaman MD> 03/22/22 0467 [facility] Work Phone: 1(675) 540-985510-16-2022 Progress note Author Horacio bethea [facility] March 21, 2022 9:54amNote Date/TimeOct2021 9:52am[place] [address] Psychiatry Progress Note Signed Patient: Nola Waller MR#: [id number] 1468 : 1960 Acct:[id number] Age/Sex: 61 / F Adm Date: 2 Loc: Room: [address] [place] [address] Type : ADM IN Attending Dr: Marco [...] signed by Horacio Kim MD> 03/21/22 0954 [facility] Work Phone: 1(191) 459-689310-15-2022 Progress note Author Horacio bethea [facility] March 20, 2022 9:19amNote Date/TimeOct2021 9:19[place] [address] Psychiatry Progress Note Signed Patient: Nola Waller MR#: [id number] 1468 : 1960 Acct:[id number] Age/Sex: 61 / F Adm Date: 2 Loc: Room: 7W8925-2 Type : ADM IN Attending Dr: Marco [...] <Electronically signed by Horacio Kim MD> 03/20/22918 [facility] Work Phone: 1(645) 144-327710-14-2022 Progress note Author Horacio bethea [facility] March 19, 2022 9:03amNote Date/TimeOctober 2021 9:03[place] [id number] Psychiatry Progress Note Signed Patient: Nola Waller MR#: [id number] 1468 : 1960 Acct:[id number] Age/Sex: 61 / F Adm Date: 2 Loc: Room: 6F3389-6 Type : ADM IN Attending Dr: Marco [...] <Electronically signed by Horacio Kim MD> 03/19/22 09 [facility] Work Phone: 1(554) 508-668010-13-2022 Progress note Author Horacio ebthea [facility] March 18, 2022 8:44amNote Date/TimeOct2021 8:44am[place] [address] Psychiatry Progress Note Signed Patient: Nola Waller MR#: [id number] 1468 : 1960 Acct:[id number] Age/Sex: 61 / F Adm Date: 2 Loc: Room: [address] [place] [address] Type : ADM IN Attending Dr: Marco [...] 7.5 mg and Trileptal to 300 mg twicea day Initiate Invega Sustenna 234 mg IM first dose on 03/17/2022. Continue to monitor blood pressure Continue to monitor mental status Encourage group participation and medication compliance Risk benefits alternatives explained Documented By: Horacio Kim MD 2 0843 Signed By: <Electronically signed by Horacio Kim MD> 03/18/22 0844 [facility] Work Phone: 1(487) 956-770010-12-2022 Hospital Discharge instructions Additional Instructions Invega Sustenna 234mg injection given 03/17/2022. Invega Sustenna 156mg booster injection given 03/22/2022. Invega Injection Due on 04/19/2022 You have completed your course of antibiotics Regular diet. No activity restrictions.[facility] Work Phone: 1(583) 643-801610-12-2022 Progress note Author Horacio bethea [facility] March 17, 2022 9:33amNote Date/TimeOct2021 9:31[place] [address] Psychiatry Progress Note Signed Patient: Nola Waller MR#: [id number] 1468 : 1960 Acct:[id number] Age/Sex: 61 / F Adm Date: 2 Loc: Room: [address] [place] [address] Type : ADM IN Attending Dr: Marco [...] discussed with the patient. The patient verbalized unders tanding. Staff noted that she is internally stimulated. [...] 7.5 mg and Trileptal to 300 mg twicea day Initiate Invega Sustenna 234 mg IM first dose today on 03/17/2022. Continue to monitor blood pressure Continue to monitor mental status Encourage group participation and medication compliance Risk benefits alternatives explained Documented By: Horacio Kim MD 2 0931 Signed By: <Electronically signed by Horacio Kim MD> 03/17/22 0933 [facility] Work Phone: 1(456) 685-771610-11-2022 Progress note Author Horacio bethea [facility] March 16, 2022 9:48amNote Date/TimeOct2021 9:47[place] [address] Psychiatry Progress Note Signed Patient: Nola Waller MR#: [id number] 1468 : 1960 Acct:[id number] Age/Sex: 61 / F Adm Date: 2 Loc: Room: [address] [place] [address] Type : ADM IN Attending Dr: Marco A Zaman MD Copies to: ~ Date of Service: 03/16/2022 Subjective Subjective Narrative: Jessie reported that she is feeling paranoid. She said medications are working forher hallucinations.She tolerated increasing the dose of Invega to [...] signed by Horacio Kim MD> 03/16/22 0948 [facility] Work Phone: 1(614) 805-812910-10-2022 Progress note Author Horacio bethea [facility] March 15, 2022 8:53amNote Date/TimeOct2021 8:52[place] [address] Psychiatry Progress Note Signed Patient: Nola Waller MR#: [id number] 1468 : 1960 Acct:[id number] Age/Sex: 61 / F Adm Date: 2 Loc: Room: [address] [place] [address] Type : ADM IN Attending Dr: Marco [...] of Invega to 7.5 mg p.o. daily. Risks,benefits and indications of medications were discussed with [...] signed by Horacio Kim MD> 03/15/22 0853 [facility] Work Phone: 1(827) 967-808610-09-2022 Progress note Author Marco A Zaman [facility] March 14, 2022 11:32amNote Date/TimeOct2021 11:32[place] [address] Psychiatry Progress Note Signed Patient: Nola Waller MR#: [id number] 1468 : 1960 Acct:[id number] Age/Sex: 61 / F Adm Date: 2 Loc: Room: [address] [place] [address] Type : ADM IN Attending Dr: Marco [...] explained Documented By: Marco A Zaman MD 03/14/22 1131 Signed By: <Electronically signed by Marco A Zaman MD> 03/14/22 1132 [facility] Work Phone: 1(508) 423-819110-08-2022 Progress note Author Marco A Zaman [facility] March 13, 2022 12:25pmNote Date/TimeOct2021 12:25pm[place] [address] Psychiatry Progress Note Signed Patient: Nola Waller MR#: [id number] 1468 : 1960 Acct:[id number] Age/Sex: 61 / F Adm Date: 2 Loc: Room: [address] [place] [address] Type : ADM IN Attending Dr: Marco A Zaman MD Copies to: ~ Date of Service: 03/13/2022 Subjective Subjective Narrative: Jessie reported that she is doing fine. She continues to report auditory hallucinations and she was talking to herself as I approached her room. She stated that she is tolerating medications. She stillhas some distractibility and difficulty answering questions and then some repeat. She reported thatshe is eating okay and slept well overnight. [...] by Marco A Zaman MD> 03/13/22 1225 [facility] Work Phone: 1(216) 926-381310-07-2022 History and physical note Author Marco A Zaman [facility] March 12, 2022 5:35pmNote Date/TimeOct2021 5:29pm[place] [address] Psychiatry H&P Signed Patient: Nola Waller MR#: [id number] 1468 : 1960 Acct:[id number] Age/Sex: 61 / F Adm Date: 2 Loc: Room: [address] [place] [address] Type: ADM IN Attending Dr: Marco A Zaman MD Copies to: MD Santa Chase MD~ Date of Service: 03/12/2022 [facility] Narrative Narrative: Nola Waller is a 61-year-old [...] does admit its time to work on MU[employer] . She is oriented to person and date. She believed she was at [facility] Patient is extremely tearful on exam. [...] delayed responsewhen questions asked. She admits to [facility]. Recent medication changes discussed. Client [...] Appearance Clear Urine pH 6.5 Ur Specific [place] 1.007 Urine Protein Negative Urine Glucose (UA) [...] 03/12/22 1017 Signed By: <Electronically signed by Macro A Zaman MD> 03/12/22 5057 [facility] Work Phone: 1(121) 554-460610-07-2022 NoteBedside Glucose CommentOctober 2021 6:09amSee commentGlu2: Procedure ErrorPoint of Care [facility] CenterComment on above:Glu2: Procedure [id number] History of Present illness Narrative* Gerald Adames MD - 02/12/2022 2:36 PM EDT Telephone Visit Via Phone Call [facility] [phone] Telephone Visit [facility] 02/12/2022 Gerald Adames MD Provider Location: [facility] Patient Location Airplane Refueler: None Patient Location: Patient's Home Patient: Nola [...] there are inherent diagnostic limitations compared to ooic-le-lxii evaluations. We elected toproceed with the telephone [...] and Plan of Care. documented in this [id number] History of Present illness Narrative* Gerald Adames MD - 11/19/2021 11:40 AM EDT [...] after discontinuation of lithium. documented in this [id number] History of Present illness Narrative* Gerald Adames MD - 09/14/2021 3:37 PM EDT [...] reviewed: Data review needed, labs obtained from [facility] Response to Medication: Adequate ASSESSMENT AND PLAN: [...] andwill fax when the labs are completed Gerald Adames documented in this [id number] Telephone encounter Note* Telephone Encounter - Yuni Negron CNP - 08/25/2021 1:49 PM EDT Prescription for Clonazepam 1mg at bedtime #30, 0RF written to continue medication written for patient by provider, Dr. Adames. [facility] Work Phone: 1(285) 445-538803-22-2022 Miscellaneous Notes* Telephone Encounter - Yuni Negron [...] in another refill request. documented in this [id number] Telephone encounter Note* Telephone Encounter - Obdulia [...] I will put in another refill request. [id number] Telephone encounter Note* Telephone Encounter - Yuni Negron CNP - 08/24/2021 4:22 PM EDT Ms. Waller has 1 refill remaining for Clonazepam 1mg nightly according to [facility]. Asked staff to let her know. [facility] Work Phone: [phone]) [phone] Miscellaneous Notes* Telephone Encounter - Yuni Negron [...] her pharmacist. Thank you! documented in this [id number] Telephone encounter Note* Telephone Encounter - Yuni Negron CNP - 08/24/2021 8:24 AM EDT It appears that Ms. Waller has one refill remaining according to [facility] checked this morning. Please ask her to check with her pharmacist. Thank you! [id number] Evaluation note* Encounter Date Diagnosis Assessment Notes Treatment Notes Treatment Clinical Notes May, Acute pain of left knee (ICD-10 - M25.562) May,losed sleeve fracture of left patella, initial encounter (ICD-10 - S82.092A) Wear the knee brace as much as possible. Use your crutches for ambulation. Tylenol or ibuprofen as needed for pain ice and elevate your knee as much as possible. Follow-up with Dr. Valentin, call Tuesday morning for an appointment to be seen in follow-up [employer] Other 10-27-2021 Evaluation note* Encounter Date Diagnosis Assessment Notes Treatment Notes Treatment Clinical Notes Mar, Chronic kidney disease, stage 3b (ICD-10 - N18.32) She has a CKD likely due to the chronic interstitial nephritis due to the prolonged vitamin use. She has no evidence of hematuria and proteinuria on UA. Her renal ultrasound showed bilateral renal cortical atrophy and bilateral renal cysts. Mar,ithium use (ICD-10 - Z79.899) She has a bipolar disorder and currently takes lithium. Continue follow-up with psychiatrist and get periodically lithium level checked to avoid lithium toxicity. Mar,Hypercalcemia (ICD-10 - E83.52) She has hypercalcemia likely due to the vitamin D. I have advised her to stop the vitamin D. I haveordered the PTH and vitamin D. Mar,Hypermagnesemia (ICD-10 - E83.41) He has hypermagnesemia likely due to supplements. I have advised him to stop the multivitamin [employer] Other 10-04-2021 History of Present illness Narrative* Gerald Adames MD - 03/09/2021 10:52 PM EDT [...] and motivation. She has been going to [employer] and working out. Patient denies any [...] reviewed: Data review needed, labs obtained from [facility] Response to Medication: Adequate ASSESSMENT AND PLAN: [...] and Objectives discussed. Other Referrals/Consults/Psychological Testing: None Gerald Adames documented in this [id number] History of Present illness Narrative* Heidi Tenorio LPN - 01/27/2021 1:09 PM EDT Called and left message with medical records at [facility] letting them know that Dr. Adames wants all of patients lab work as far back as 5 years ago faxed to our office. Let them know that most of her labs had been ordered by Dr. Adames anyhow. Left my direct line and our fax number. documented in this encounterOhioHealthDischarge summary Author Marco A Zaman [facility] March 23, 2022 2:41pmNote Date/TimeOct2021 2:37pm[address] [address] Discharge Summary Signed Patient: Nola Waller MR#: [id number] : 1960 Acct:[id number] Age/Sex: 61 / F Adm Date: 2 Loc: 1S Room: 4G3691-[address]: Marco A Zaman MD Copies [...] taken off of lithium several months ago dueto renal concerns.? She reports she has been feeling high and low repetitively in a short period.? She was given IM Zyprexa last night.? She does admit its time to work on [employer] .? She is oriented to person and date.? She believed she was at [facility] Patient is extremely tearful on exam.? She feels that she has broken.? She mentions she was feelingthis way even on the lithium.? Patient appears confused, requiring repeated questions.? She maintains eye contact but appears in her own world.? Depression 7, anxiety 10.? Denies suicidality, homicidality.?Admits to auditory and visual hallucinations.? She says her imagination is showing her peopleshe wants to see such as family members.? [...] diet. No activity restrictions. Instructions: Schizophrenia (DC), [facility] DC Instructions Prescriptions: New oxcarbazepine [...] 20 mg PO DAILY Follow Up: Dr. Gerald Adames [Other] - 04/26/22 1:30 pm (Invega Injection due 04/19/22) [facility] [Other] - 03/25/22 9:30 am (Therapy with Shawn Carlos) [facility] Hotline [Outside] Documented By: Marco A Zaman MD 03/23/22 1435 Signed By: <Electronically signed by Marco A Zaman MD> 03/23/22 1441 [facility] Work Phone: evaluation note* Diagnosis KALEN [...] unspecified documented in this encounter [facility] noteNo [facility] Other Evaluckcbu note* Diagnosis Bipolar 1 disorder, manic, moderate (HCC)- Primary Anxiety Anxiety state, unspecified documented [facility] encounter [facility]* Diagnosis Onset Date Resolution Status Hallucinations acuteUTI (urinary tract infection)[facility] Work Phone: evaluation note* Diagnosis Onset Date Resolution Status Hallucinations acuteSchizophreniaacuteUTI (urinary tract infection)[facility] Work Phone: evaluation note* Diagnosis Bipolar [...] with psychotic behavior documented [facility] encounter [facility]* Diagnosis Onset Date Resolution Status CKD (chronic kidney disease) stage 3, GF R 30-59 ml/min acuteHypercalcemiaacuteHyperparathyroidismacuteLithium useacute [facility] Work Phone: Evaluation note* Diagnosis Closed fracture of right wrist, initial encounter- Primary documented in this encounter [facility] note* Diagnosis Onset Date Resolution Status CKD (chronic kidney disease) stage 3, GF R 30-59 ml/min acuteHypercalcemiaacuteHyperlipidemiaacuteHyperparathyroidismacuteLithium use [facility] Work Phone: Evaluation note* Diagnosis Downbeat nystagmus- Primary Diplopia Age-related nuclear cataract of both eyes Dry eyes Unspecified tear film insufficiency documented in this encounter [facility] HealthcareEvaluation note* Diagnosis Closed fracture of distal end of right radius with routine healing, unspecified fracture morphology, subsequent encounter- Primary Closed nondisplaced fracture of styloid process of right ulna with routine healing [facility] Diagnosis Closed fracture of distal end of right radius with routine healing, unspecified fracture morphology, subsequent encounter Closed nondisplaced fracture of styloid process of right ulna with routine healing [facility]* Diagnosis Downbeat nystagmus- Primary Other forms of nystagmus Hypertropia of right eye [facility]* Diagnosis Downbeat nystagmus- Primary Other forms of nystagmus Hypertropia of right eye [facility]* Diagnosis Chronic constipation- Primary Unspecified constipation [facility]* Diagnosis Hypercalcemia- Primary Hyperparathyroidism ([facility]/HCC) Hyperparathyroidism, unspecified Vitamin D deficiency Chronic kidney disease, stage 3b (HCC) ([facility]/HCC) [facility] Diagnosis Onset Date Resolution Status Admit Date CKD (chronic kidney disease) stage 3, GF R 30-59 ml/min acuteApril 2024 3:45pmHypercalcemiaacuteApril 2024 3:45pm HyperlipidemiaacuteApril 2024 3:45pmHypernatremiaacuteApril 2024 3:45pmHyperparathyroidismacuteApril 2024 3:45pmHyperuricemiaacuteApril 2024 3:45pm [facility] Work Phone: Evaluation note* Diagnosis Hypercalcemia Hyperparathyroidism (CMS/HCC) Hyperparathyroidism, unspecified documented in this encounter [facility] HealthcareEvaluation note* Diagnosis Hypercalcemia Hyperparathyroidism (CMS/HCC) Hyperparathyroidism, unspecified documented in this encounter [facility] HealthcareEvaluation note* Diagnosis History of parathyroidectomy documented in this encounter [facility] HealthcareEvaluation note* Diagnosis Primary hyperparathyroidism (CMS/HCC)- Primary Primary hyperparathyroidism documented in this encounter [facility] HealthcareEvaluation note* Diagnosis Encounter for colonoscopy due to history of colonic polyp- Primary documented in this encounter [facility]* Diagnosis Onset Date Resolution Status Admit Date Screening mammogram for breast cancer acuteSeptember 2024 1:20pm [facility] Work Phone: Evaluation note* Diagnosis History of parathyroid surgery- Primary Chronic kidney disease, stage 3b ([facility]) Vitamin D deficiency documented in this encounter [facility] HealthcareHistory general Narrative - Reported* Type Description Date Medical History CKD STAGE 3 Medical HistoryGERDMedical HistoryDEPRESSIONMedical HistoryBIPOLAR AFFECTIVE DISORDERMedical HistoryPOSTMENOPAUSAL STATUSMedical HistoryRIGHT LOWER QUADRANT ABDOMINAL MASSMedical HistorySYNCOPE AND COLLAPSESurgical HistoryTOTAL LAP HYSTO, BSO LYSIS OF ADHESIONS, EXCISION OF 11CM PELVIC MASS CYSTOSCOPYSurgical HistoryTONSILS AND ADNOIDSSurgical HistoryRIGHT ROTATOR CUFF REPAIRSurgical [id number] HistoryLEFT KNEE SURGERYSurgical HistoryWISDOM TEETHSurgical HistoryD&CHospitalization HistorySEE ABOVEHospitalization History BI [id number] [employer] Other History general Narrative - Reported* Type Description Date Medical History CKD STAGE 3 Medical HistoryGERDMedical HistoryDEPRESSIONMedical HistoryBIPOLAR AFFECTIVE DISORDERMedical HistoryPOSTMENOPAUSAL STATUSMedical HistoryRIGHT LOWER QUADRANT ABDOMINAL MASSMedical HistorySYNCOPE AND COLLAPSESurgical HistoryTOTAL LAP HYSTO, BSO LYSIS OF ADHESIONS, EXCISION OF 11CM PELVIC MASS CYSTOSCOPYSurgical HistoryTONSILS AND ADNOIDSSurgical HistoryRIGHT ROTATOR CUFF REPAIRSurgical [id number] HistoryLEFT KNEE SURGERYSurgical HistoryWISDOM TEETHSurgical HistoryD&CSurgical HistoryCOLONOSCOPY09/2021Hospitalization History SEE ABOVEHospitalization HistoryBI [id number] [employer] Other History general Narrative - Reported* Type Description Date Medical History CKD STAGE 3 Medical HistoryGERDMedical HistoryDEPRESSIONMedical HistoryBIPOLAR AFFECTIVE DISORDERMedical HistoryPOSTMENOPAUSAL STATUSMedical HistoryRIGHT LOWER QUADRANT ABDOMINAL MASSSurgical HistoryTOTAL LAP HYSTO, BSO LYSIS OF ADHESIONS, EXCISION OF 11CM PELVIC MASS CYSTOSCOPYSurgical HistoryTONSILS AND ADNOIDSSurgical HistoryRIGHT ROTATOR CUFF REPAIRSurgical [id number] History LEFT KNEE SURGERYSurgical HistoryWISDOM TEETHSurgical HistoryD&CSurgical History COLONOSCOPY09/2021Hospitalization HistorySEE ABOVEHospitalization HistoryBI [facility] 2017 [employer] Other Hospital Discharge instructions Additional Instructions DISCHARGE INSTRUCTIONS FOR THYROIDECTOMY ACTIVITY -No lifting or straining. -No strenuous activity for 2 weeks. -Sleep with head elevated on two pillows. -May shower tomorrow. -You may shower and wash the incision with soap and water, but do not submerge the incision or allow prolonged exposure to water. Pat dry. -No driving for at least 5 days, or while taking prescription pain medicine. WOUND CARE/DRESSING -Be sure to keep your incision clean and dry. -There is a clear, glue-like adhesive on your incision. Do not peel or pick at this adhesive. It wall fall off on its own after a few days. -Call the office if incision area appears to have any sign of infection, such as increased swelling, redness, or purulent drainage. -Watch for bleeding, swelling, difficulty breathing, difficulty swallowing. MEDICATION -If any prescriptions have been given to you, be sure to take as directed. OTHER Any problems- call the office or return to the Emergency Room. If you are having excessive or persistent pain, swelling, fever (oral temp >101), yellow-green foul smelling drainage or bleeding from incision, excessive redness of incision, nausea, vomiting, or any other problems, you should first call your surgeon for advice. If you are unable to contact your surgeon, seek help from a hospital emergency room. FOLLOW UP Take calcium as prescribed, it was called into your pharmacy. -Call the office to follow up in one week. Get blood work drawn at [facility] [address] Mccullough If signs or symptoms of low calcium occur, report to the [facility] emergency room.[facility] Work Phone: InstructionsNot on filedocumented in this encounter [facility]* Attachments The following attachments cannot be sent through Care Everywhere. * Constipation in adults (Cameroonian) documented in this encounterProSmartVineyard SystemInstructionsNot on file documented in this encounterProHenry County HospitalOlah-V[facility] [employer] Solutions SystemInstructionsNot on file documented in this encounterProWooster Community Hospital SystemReason for referral (narrative)* Consultation (Routine) - AuthorizedSpecialtyDiagnoses / Procedures Referred By ContactReferred To ContactOccupational Therapy / Physical Therapy Diagnoses Closed fracture of distal end of right radius with routine healing, unspecified fracture morphology, subsequent encounter Closed nondisplaced fracture of styloid process of right ulna with routine healing Procedures [place] OFFICE/OUTPATIENT NEW HIGH MDM 60 MINUTES Gretchen Jensen, TEENA [address] [place] [address] Ruby Love, OT [address] [place] [address] Referral IDStatusReasonStart DateExpiration DateVisits RequestedVisits [id number] Consult and Treat /[id number] ARIADNA Childress for referral (narrative)No reason for referral information availableOhiohealth [facility] Work Phone: Reason for visit Narrative* Consultation (Routine) - ClosedSpecialtyDiagnoses / ProceduresReferred By ContactReferred To Contact Occupational Therapy / Physical Therapy Diagnoses Closed fracture of distal end of right radius with routine healing, unspecified fracture morphology, subsequent encounter Closed nondisplaced fracture of styloid process of right ulna with routine healing Procedures [place] OFFICE/OUTPATIENT NEW HIGH MDM 60 MINUTES Gretchen Jensen, MANAGER PERFORMANCE [address] [place] [address] Ruby Love, OT [address] [place] [address] Referral IDStatusReasonStart DateExpiration DateVisits RequestedVisits [id number] Consult and Treat /[id number] [facility] Summary Purpose Family History Relationship Condition Age at Onset Recorded Date/T sowmya brother Heart disease Unknown fatherDeceasedUnknownHypertensionUnknownDiabetes mellitusUnknownNot Specified DeceasedUnknownMalignant neoplasmUnknownsisterFamily history of mental disorder Unknown Relationship Condition Age at Onset Recorded Date/T sowmya brother Heart disease Unknown fatherDeceasedUnknownHypertensionUnknownDiabetes mellitusUnknownmotherDeceased UnknownMalignant neoplasmUnknownsisterFamily history of mental disorderUnknown Relationship Condition Age at Onset Recorded Date/T sowmya brother Congestive heart failure Unknown fatherDiabetes mellitusUnknownDeceasedUnknownHypertensionUnknownmotherDeceased UnknownMalignant neoplasmUnknownsisterFamily history of mental disorderUnknown brotherMyocardial infarctionUnknown Advance Directives TypeDate RecordedPatient RepresentativeExplanationAdvance Directives and Living Will Advance Directive Response Recorded Date/ Time Advance Directives No May 12, 2021 7:39am Code StatusDate ActivatedDate InactivatedCommentsFull Code10/26/2017 9:22 PM 11/22/2017 3:36 PMDate ActivatedDate InactivatedComments10/09/2019 3:04 PM10/10/2019 4:18 PMCode StatusDate ActivatedDate InactivatedCommentsFull Code10/09/2019 3:04 PM10/10/2019 4:18 PM Assessments Diagnosis KALEN (Generalized Anxiety Disorder)- Primary Generalized anxiety disorder Diagnosis Bipolar 1 disorder, manic, mild (HCC)- Primary KALEN (Generalized Anxiety Disorder) Generalized anxiety disorder Long-term use of high-risk medication History of Present Illness * Gerald Adames MD - 08/22/2020 2:56 PM EDT Telephone Visit Via Phone Call [facility] [phone] Telephone Visit [facility] 08/22/2020 Gerald Adames MD Provider Location: [facility] Patient Location Airplane Refueler: None Patient Location: Patient's Home Patient: Nola [...] there are inherent diagnostic limitations compared to ufbx-ib-iqse evaluations. We elected toproceed with the telephone visit telemedicine consultation. Spouse is present. Audio quality was fair. Patient was able to engage well HPI Patient is a 59-year-old white female who has been under my care for the last 8 years at myprevious work location in [facility]. Patient wants to continue her psychiatric management under my supervision at my new location with [facility]. Patient's working diagnosis is bipolar disorder [...] fair energy and motivation. Patient [facility] work[facility] regularly. Patient reports she has [...] 450 MG CR tablet Other Relevant Orders Bejou Level Comprehensive Metabolic Panel TSH Urinalysis KALEN (Generalized Anxiety Disorder) Relevant Medications clonazePAM (KLONOPIN) 1 MG tablet Other Relevant Orders Bejou Level Comprehensive Metabolic Panel TSH Urinalysis Other Visit Diagnoses Long-term use of high-risk medication Relevant Orders Bejou Level Comprehensive Metabolic Panel TSH Urinalysis Global [...] Complaint and Reason for Visit Chief Complaint Admit Date RENAL 6 MONTH F/U September 19, 2024 3:4 5pm E21.3 October 12, 2024 9:08am Reason for Visit Admit Date CKD (chronic kidney disease) stage 3, GF R 30-59 ml/min September 19, 2024 3:45pm Hypercalcemia September 19, 2024 3:4 5pm Hyperlipidemia September 19, 2024 3:4 5pm Hypernatremia September 19, 2024 3:4 5pm Hyperparathyroidism September 19, 2024 3:4 5pm Hyperuricemia September 19, 2024 3:4 5pm Chief Complaint mhp Reason for Visit Hallucinations UTI (urinary tract infection) Chief Complaint mhp Reason for Visit Hallucinations Schizophrenia UTI (urinary tract infection) Chief Complaint Wellness RENAL 6 month f/uReason for VisitCKD (chronic kidney disease) stage 3, GFR 30-59 ml/min Hypercalcemia Hyperparathyroidism Bejou use Chief Complaint RENAL 6 MONTH F/U Reason for Visit CKD (chronic kidney disease) stage 3, GFR 30-59 ml/min Hypercalcemia Hyperlipidemia Hyperparathyroidism Bejou use Chief Complaint Admit Date RENAL 6 MONTH F/U September 19, 2024 3:4 5pm Chief Complaint Admit Date RENAL 6 MONTH F/U September 19, 2024 3:4 5pm E21.3 October 12, 2024 9:08am Hyperparathyroidism October 31, 2024 3:20p m Chief Complaint Admit Date RENAL 6 MONTH F/U September 19, 2024 3:4 5pm E21.3 October 12, 2024 9:08am Hyperparathyroidism October 31, 2024 3:20p m Hyperparathyroidism November 05, 2024 5:59a m Chief Complaint Admit Date RENAL 6 MONTH F/U September 19, 2024 3:4 5pm E21.3 October 12, 2024 9:08am Hyperparathyroidism October 31, 2024 3:20p m Hyperparathyroidism November 05, 2024 5:59a m E83.52 E21.3 November 12, 2024 8:43a m Chief Complaint Admit Date Wellness February 18, 2025 1:20pm Reason for Visit Admit Date Screening mammogram for breast cancer Se ptember 2024 1:20pm Chief Complaint Admit Date Wellness February 18, 2025 1:20pm Sinus congestion, cough March 13 9:36am Reason for Visit Admit Date CKD (chronic kidney disease) stage 3, GF R 30-59 ml/min February 18, 2025 1:20pm Hyperparathyroidism February 18, 2025 1:20pm [place] [facility] February 18, 2025 1:20pm Screening mammogram for breast cancer Se ptember 2024 1:20pm Chief Complaint Admit Date Wellness February 18, 2025 1:20pm Sinus congestion, cough March 13 9:36am RENAL 6 MONTH F/U March 18, 2025 2 :55pm Reason for Visit Admit Date CKD (chronic kidney disease) stage 3, GF R 30-59 ml/min February 18, 2025 1:20pm Hyperparathyroidism February 18, 2025 1:20pm [place] February 18, 2025 1:20pm Screening mammogram for breast cancer Se ptember 2024 1:20pm Viral URI with cough March 13, 2025 9 :36am CKD (chronic kidney disease) stage 3, GF R 30-59 ml/min March 18, 2025 2:55pm Hypercalcemia March 18, 2025 2 :55pm Hyperlipidemia March 18, 2025 2 :55pm Hypernatremia March 18, 2025 2 :55pm Hyperparathyroidism March 18, 2025 2 :55pm Hyperuricemia March 18, 2025 2 :55pm Additional Source Comments INFORMATION SOURCE (unrecogn ized section and content) DATE CREATED AUTHOR 11/22/2017 [facility] DATE CREATED AUTHOR AUTHOR'S ORGANIZ ATION 04/23/2020 [facility] DATE CREATED AUTHOR AUTHOR'S ORGANIZ ATION 06/22/2022 [facility] DATE CREATED AUTHOR AUTHOR'S ORGANIZ ATION 08/06/2022 [facility] DATE CREATED AUTHOR AUTHOR'S ORGANIZ ATION 10/09/2023 [facility] DATE CREATED AUTHOR AUTHOR'S ORGANIZ ATION 07/06/2024 [facility] DATE CREATED AUTHOR AUTHOR'S ORGANIZ ATION 12/13/2024 [facility] DATE CREATED AUTHOR AUTHOR'S ORGANIZ ATION 01/13/2025 [facility] DATE CREATED AUTHOR AUTHOR'S ORGANIZ ATION 02/02/2025 [facility] DATE CREATED AUTHOR AUTHOR'S ORGANIZ ATION 03/11/2025 [facility] EPIC Reason for Visit (unrecogniz ed section and content) ReasonOnset DateCommentsMedication [id number] Patient/Bipolar/AnxietyReasonCommentsMedication ManagementReasonOnset Date CommentsMedication [id number] DateCommentsMedication Refill 2ReasonOnset DateCommentsMedication [id number] InjuryArm InjuryrightReasonCommentsSpots and/or FloatersDiplopiaNystagmusReason CommentsFollow-upReasonCommentsDownbeat nystagmusSpecialtyDiagnoses / Procedures Referred By ContactReferred To ContactOptometry / OPHTHALMOLOGY Diagnoses Downbeat nystagmus Nystagmus referred by Dr. Vandana Chen Procedures OFFICE/OUTPATIENT NEW MODERATE MDM 45 MINUTES Vandana Chilel, DO [address] [facility] [address] [place] [address] Christine Brown, OD [address] [place] [address] Referral IDStatusReasonStart DateExpiration DateVisits RequestedVisits [id number]/[id number] / Procedures Referred By ContactReferred To ContactOptometry / OPHTHALMOLOGY Diagnoses Examination Return in about 6 weeks (around 07/04/2024) for 30 min dipolopia slot. Procedures OFFICE/OUTPATIENT ESTABLISHED [facility] 30 MIN EST PEDS Christine Brown, OD [address] [place] [address] Christine Brown, OD [address] [place] [address] Referral IDStatusReasonStart DateExpiration DateVisits RequestedVisits [id number]/29/[id number]ncAxhglvm constipation, last colon 09/07/21ReasonCommentsThyroid ProblemFollow-upLABReason CommentsHypercalcemiaSpecialtyDiagnoses / ProceduresReferred By ContactReferred To ContactOtolaryngology Diagnoses Hypercalcemia Hyperparathyroidism (CMS/HCC) Procedures [place] [facility]ES Xena Marrufo MD [address] [place] [address] Phone: tel: fax: Conrad Mccullough W, DO [address] [place] [address] Phone: tel: fax: Referral IDStatusReasonStart DateExpiration DateVisits RequestedVisits [id number] Specialty Services Required /[id number]ljcLU resultsReasonCommentsPost-op ReasonCommentsColon Cancer Screening3 YEAR RECALL, LAST COLONOSCOPY 09/07/2021 DR PereyraonCommentsFollow-upThyroid Problem Care Teams (unrecognized sec tion and content) Team Status: Active Member Role Status Dates Santa Augustin MD Primary Care Provider Active Team Status: Inactive Member Role Status Dates Santa Augustin MD Primary Care Provider Active Start: February 18, 2025 End: February 18, 2025Bernard Cazaresending ProviderActiveStart: February 18, 2025 End: February 18, 2025 Team Status: Active Member Role Status Dates Santa Augustin MD Primary Care Provider Active Start: February 01, 2024 Mi Boss MANAGER PERFORMANCE-CAttending ProviderActiveStart: February 01, 2024 Team Status: Active Member Role Status Dates Santa Augustin MD Primary Care Provider Active Start: March 24, 2024 Zacharyemanuel Pascual MDAttending ProviderActiveStart: March 24, 2024 Team Status: Inactive Member Role Status Dates Santa Augustin MD Primary Care Provider Active Start: April 03, 2024 End: April 03bdemanuel Pascual MDAttending ProviderActiveStart: April 03, 2024 End: April 03, 2024Team MemberRelationshipSpecialtyStart DateEnd Date Santa Augustin MD [address] [place] [address] [place] [address] P[facility] - [facility]07/09/20Team MemberRelationshipSpecialtyStart DateEnd Date Santa Augustin MD [address] [place] [address] [place] [address] PCP - Generalmily Medicine07/09/20Team MemberRelationshipSpecialtyStart [place] [address] [place] [address] [place] [address] PCP - GeneralFamily Medicine07/09/20Team MemberRelationshipSpecialtyStart DateEnd Date Santa Augustin MD [address] [place] [address] [place] [address] PCP - Generalmily Medicine07/09/20Team MemberRelationshipSpecialtyStart DateEnd Date Santa Augustin MD [address] [place] [address] [place] [address] PCP - Generalmily Medicine07/09/20Team MemberRelationshipSpecialtyStart DateEnd Date Santa Augustin MD [address] [place] [address], [place] [address] P[facility] - [facility]07/09/20Team MemberRelationshipSpecialtyStart DateEnd Date Santa Augustin MD [address] [place] [address] [place] [address] [facility] - [facility]/20 Team Status: Active Member Role Status Dates Santa Augustin MD Primary Care Provider Active Danisha De Oliveirarmarquita ProviderActiveAdeyemi Austyn , MDAdmit Provider, Attending ProviderActive Team Status: Inactive Member Role Status Dates Santa Augustin MD Primary Care Provider Active Momo Hill DOEmergency ProviderActiveAdeyemi Austyn , MDAdmit Provider, Attending ProviderActiveTeam MemberRelationshipSpecialtyStart DateEnd Date Santa Augustin MD [address] [place] [address] [place] [address] [facility] - [facility]07/09/20Team MemberRelationshipSpecialtyStart DateEnd Date Santa Augustin MD [address] [place] [address], [place] [address] [facility] - [facility]07/09/20Team MemberRelationshipSpecialtyStart DateEnd Date Santa Augustin MD [address] [place] [address], [place] [address] PCP - [facility] Medicine07/09/20 Team Status: Inactive Member Role Status Dates Santa Augustin MD Attending Provider Active St art: July 06, 2023 End: July 06, 2023 Team Status: Active Member Role Status Dates Santa Augustin MD Primary Care Provide r, Attending Provider Active Start: August 29, 2023 Team Status: Inactive Member Role Status Dates Santa Augustin MD Primary Care Provider Active Start: September 19, 2023 End: September 18jessica Maria Dolores Becka ProviderActiveStart: September 19, 2023 End: September 19, 2023Team MemberRelationshipSpecialtyStart DateEnd Date Santa Augustin MD PCP - GeneralFamily Medicine10/26/17Team MemberRelationshipSpecialtyStart DateEnd Date Santa Augustin MD [address] [facility] [place] [address] PCP - GeneralFamily Medicine10/10/23Team MemberRelationshipSpecialtyStart DateEnd Date Santa Augustin MD [address] [place] [facility] [place] [address] PCP - GeneralFamily Medicine10/10/23Team MemberRelationshipSpecialtyStart DateEnd Date Santa Augustin MD [address] [place] [facility] [place] [address] PCP - GeneralFamily Medicine10/10/23Team MemberRelationshipSpecialtyStart DateEnd Date Santa Augustin MD [address] [place] [facility] [place] [address] PCP - GeneralFamily Medicine10/10/23Team MemberRelationshipSpecialtyStart DateEnd Date Santa Augustin MD [address] [facility] [place] [address] PCP - GeneralFamily Medicine10/10/23Team MemberRelationshipSpecialtyStart DateEnd Date Santa Augustin MD [address] [facility] [place] [address] PCP - GeneralFamily Medicine10/10/23Team MemberRelationshipSpecialtyStart DateEnd Date Santa Augustin MD [address] [facility] [place] [address] PCP - GeneralFamily Medicine12/14/11 Tim Barker MD [address] [facility] [address] [place] [address] ReferringNeurology01/09/19Team MemberRelationshipSpecialtyStart DateEnd Date Sanat Augustin MD [address] [facility] [place] [address] PCP - GeneralFamily Medicine12/14/11 Tim Barker MD [address] [facility] [address] [place] [address] ReferringNeurology01/09/19Team MemberRelationshipSpecialtyStart DateEnd Date Santa Augustin MD [address] [place] [address] PCP - General07/27/17Team MemberRelationshipSpecialtyStart DateEnd Date Santa Augustin MD [address] [place] [address] PCP - General07/27/17Team MemberRelationshipSpecialtyStart DateEnd Date Santa Augustin MD [facility] [place] [address] [facility] - [facility]10/10/23 Team Status: Active Member Role Status Dates Santa Augustin MD Primary Care Provider Active Start: August 03, 2024 Mi Boss MANAGER PERFORMANCE-CAttending ProviderActiveStart: August 03, 2024 Team Status: Active Member Role Status Dates Santa Augustin MD Primary Care Provide r, Attending Provider Active Start: August 28, 2024 Team Status: Active Member Role Status Dates Santa Augustin MD Primary Care Provider Active Start: September 14, 2024 Zacharyemanuel Pascual , MDAttending ProviderActiveStart: September 14, 2024 Team Status: Inactive Member Role Status Dates Santa Augustin MD Primary Care Provider Active Start: September 19, 2024 End: September 19bdul Maria Dolores , MDAttending ProviderActiveStart: September 19, 2024 End: September 19, 2024Team MemberRelationshipSpecialtyStart DateEnd Date Santa Augustin MD PCP - [facility] Medicine10/10/23 Xena Marrufo MD [address], [facility] [address] [place] [address] Referring PhysicianEndocrinology10/01/24 Jesus Aguiar DO [address] [place] [address] Otolaryngology10/01/24Team MemberRelationshipSpecialtyStart DateEnd Date Santa Augustin MD PCP - [facility]10/10/23 Xena Marrufo MD [address], [address] [place] [address] Referring PhysicianEndocrinology10/01/24 Jesus Aguiar DO [address] [place] [address] Otolaryngology10/01/24Team MemberRelationshipSpecialtyStart DateEnd Date Santa Augustin MD PCP - [facility]10/10/23 Xena Marrufo MD [address] [place] [address] Referring PhysicianEndocrinology10/01/24 Jesus Aguiar, [address] [place] [address] Otolaryngology10/01/24Team MemberRelationshipSpecialtyStart DateEnd Date Santa Augustin MD PCP - [facility] Medicine10/10/23 Xena Marrufo MD [address], [address] [place] [address] Referring PhysicianEndocrinology10/01/24 Jesus Aguiar DO [address] [place] [address] Otolaryngology10/01/24 Team Status: Inactive Member Role Status Dates Santa Augustin MD Primary Care Provider Active Start: October 12, 2024 End: October 12leeroy Mccullough DOAttvinicius ProviderActiveStart: October 12, 2024 End: October 12, 2024Team MemberRelationshipSpecialtyStart DateEnd Santa Augustin MD PCP - [facility]10/10/23 Xena Marrufo MD [address] [place] [address] Referring PhysicianEndveterans memorial hospitaly10/01/24 Jesus Aguiar DO [address] [facility] [place] [address] Otolarynlogy10/01/24 Team Status: Inactive Member Role Status Dates Santa Augustin MD Primary Care Provider Active Start: October 31, 2024 End: October 31leeroy Mccullough , Attvinicius ProviderActiveStart: October 31, 2024 End: October 31, 2024Team MemberRelationshipSpecialtyStart DateEnd Santa Augustin MD PCP - [facility]10/10/23 Xena Marrufo MD [address], [address] [place] [address] Referring PhysicianEndc.s. mott children's hospitalinoly10/01/24 Jesus Aguiar DO [address] [facility] [place] [address] Otolaryngology10/01/24 Team Status: Inactive Member Role Status Dates Santa Augustin MD Primary Care Provider Active Start: November 05, 2024 End: November 05leeroy Mccullough DOAttvinicius ProviderActiveStart: November 05, 2024 End: November 05, 2024Team MemberRelationshipSpecialtyStart DateEnd Date Santa Augustin MD PCP - [facility]10/10/23 Xena Marrufo MD [address], [address] [place] [address] Referring PhysicianEndc.s. mott children's hospitalinoly10/01/24 Jesus Aguiar DO [address] [place] [address] Otolaryngology10/01/24 Team Status: Inactive Member Role Status Dates Santa Augustin MD Primary Care Provider Active Start: November 12, 2024 End: November 12lashaechris Mccullough , Attvinicius ProviderActiveStart: November 12, 2024 End: November 12, 2024Team MemberRelationshipSpecialtyStart DateEnd Date Santa Augustin MD PCP - [facility]10/10/23 Xena Marrufo MD [address], [address] [place] [address] Referring PhysicianEndc.s. mott children's hospitalinoly10/01/24 Jesus Aguiar DO [address] [facility] [place] [address] Otolaryngology10/01/24Team MemberRelationshipSpecialtyStart DateEnd Date Santa Augustin MD [address] [place] [address] PCP - General07/27/17Team MemberRelationshipSpecialtyStart DateEnd Date Santa Augustin MD PCP - [facility] Medicine10/10/23 Xena Marrufo MD [address] [place] [address] Referring PhysicianEndocrinology10/01/24 Jesus Aguiar DO [address] [place] [address] Otolaryngology10/01/24Team MemberRelationshipSpecialtyStart DateEnd Date Santa Augustin MD PCP - [facility]10/10/23 Xena Marrufo MD [address], [address] [place] [address] Referring PhysicianEndocrinology10/01/24 Jesus Aguiar DO [address] [place] [address] Otolaryngology10/01/24 Team Status: Inactive Member Role Status Dates Santa Augustin MD Primary Care Provider Active Start: March 13, 2025 End: March 13Kennedy Enamorado ProviderActiveStart: March 13, 2025 End: March 13, 2025 Team Status: Inactive Member Role Status Dates Santa Augustin MD Primary Care Provider Active Start: March 18, 2025 End: March 18jessica Pascual MDAttending ProviderActiveStart: March 18, 2025 End: March 18, 2025 Goals (unrecognized section and content) Goals may be documented in a n alternate section Ordered Prescriptions (unrec ognized section and content) PrescriptionSigDispensedRefillsStart DateEnd Date oxyCODONE-acetaminophen (PERCOCET) 5-325 MG per tablet Indications:Closed fracture of right wrist, initial encounterTake 1 tablet by mouth every 6 hours as needed for Pain for up to 3 days. Intended supply: 3 days. Take lowest dose possible to manage pain Max Daily Amount: 4 tablets 12 tablet //12/2023 Scheduled Active and Recently Administ ered Medications (unrecognized section and content) Medication Order10/05////09/2023 oxyCODONE-acetaminophen (PERCOCET) 5-325 MG per tablet 1 tablet (COMPLETED) 1 tablet, Oral, ONCE, 1 dose, On 10/08/23 at 1915, Maximum dose of acetaminophen is 4000 mg from all sources in 24 hours. * 1903 (Given - Provider: Tomas Woodall RN) Source Comments (unrecognize d section and content) In the event this informatio n is protected by the Federal Confidentiality of Alcohol and Drug Abuse Patient Records regulations: The Federal rules restrict any use of the information to criminally investigate or prosecute any alcohol or drug abuse patient.[facility] HospitalIn the event this information is protected by the Federal Confidentiality of Alcohol and Drug Abuse Patient Records regulations: The Federal rules restrict any use of the information to criminally investigate or prosecute any alcohol or drug abuse patient.[facility] FOR RECORDS PERTAINING TO PATIENTS WHO [...] BE BASED ON THE PRIMARY CLINICAL RECORDS. [employer] [facility]. provides no warranty or guarantee of the accuracy or completeness of information in this document.
== END 2025-04-05 09:35 | disposition home or self-care (01) ==
LOC: MAMMO 09:34
PROVIDERS: PCP Family Medicine; Visit Provider Family Medicine
DX: Z12.31 Encounter for screening mammogram for malignant neoplasm of breast (principal); Z80.3 Family history of malignant neoplasm of breast; Z80.0 Family history of malignant neoplasm of digestive organs
CPT/HCPCS: 77067

== ENCOUNTER 2025-05-22 08:47 | Outpatient (OUT) | payer OTHER, SELFPAY ==
--- OUTSIDE RECORDS SUMMARY | 2025-01-10 10:00 | XMS_ITS ---
Author Organization [facility] Serv es Address [address] [place] [address] Care Team Providers Care Insulation Cutter Name Role Phone Mi Boss Primary Care Provider [phone] REASON FOR VISIT 6 month f/u Encounters Encounter Location Date Provider Diagnosis [facility] [address] [place] [address] 01/10/2025 Mi Boss Plan Of Treatment Next Appt Details Provider Name:Shanae Tiffanie garza, 07/15/2025 03:00:00 PM, [address] [place], [address], Progress Notes * JUAN BAUTISTAOB:1960 ([age] yo F)Acc No.[id number]:01/10/2025 Behavioral Health Patient: RAN MATHEW :?Mi BossDOB:1960???Age:64 Y???Sex:Female Date:01/10/2025Phone:[phone]:[address] [id number] Subjective: * Chief Complaints: * 6 month f/u * Electronic signature of CYNTHIA Guillen on 05/22/2025 at 08:52 AM ESTSign off status: Pending * Provider: Maria A Boss Date: 0 01/10/2025 Generated for Printing/Faxing/eTransmitting on:?05/22/2025 08:52 AM EST
--- OUTSIDE RECORDS SUMMARY | 2025-01-10 10:15 | XMS_ITS ---
Author Organization [facility] Servic es Address [address] [place] [address] Care Team Providers Care Heat Treater Helper Name Role Phone Mi Boss Primary Care Provider Shanae Knott Unavailable [phone] REASON FOR VISIT ROMEO from Eric Boss Encounters Encounter Location Date Provider Diagnosis [place] [address] [place] [address] 01/10/2025 Shanae Knott Plan Of Treatment Next Appt Details Provider Name:Shanae garza, 07/15/2025 03:00:00 PM, [address] [place], [address], Progress Notes * JUAN BAUTISTAOB:1960 ([age] yo F)Acc No.[id number]:01/10/2025 Behavioral Health Patient: Fariha RENEERAN :?Shanae KnottDOB:1960???Age:64 Y???Sex: FemaleDate:01/10/2025Phone:[phone]:BRITTANY VARGAS [id number]:Mi Boss Subjective: * Chief Complaints: * T OC from Eric Boss Billing Information: * Procedure Codes: * Electronic signature of CYNTHIA King on 05/22/2025 at 08:52 AM EST Sign off status: Pending * Provider: Tiffanie Knott Date: 0 01/10/2025 Generated for Printing/Faxing/eTransmitting on:?05/22/2025 08:52 AM EST
--- OUTSIDE RECORDS SUMMARY | 2025-01-30 08:00 | XMS_ITS ---
Author Organization [facility] Servic es Address [address] [place] [address] Care Team Providers Care Training And Development Head Name Role Phone Mi Boss Primary Care Provider [phone] Shanae Knott Unavailable [phone] REASON FOR VISIT ROMEO CC/guille 01/10/25 Encounters Encounter Location Date Provider Diagnosis [place] [address] [place] [address] 01/30/2025 Shanae Knott Plan Of Treatment Next Appt Details Provider Name:Shanae garza, 07/15/2025 03:00:00 PM, [address] [place] [address] [place], [address], Progress Notes * JUAN BAUTISTAOB:1960 ([age] yo F)Acc No.[id number]:01/30/2025 Behavioral Health Patient: Fariha RENEEZORANE :?Shanae KnottDOB:1960???Age:64 Y???Sex: FemaleDate:01/30/2025Phone:[phone]:BRITTANY VARGAS [id number]:Mi Boss Subjective: * Chief Complaints: * T OC CC/guille 01/10/25 * Electronic signature of CYNTHIA King on 05/22/2025 at 08:52 AM EST Sign off status: Pending * Provider: Tiffanie Knott Date: 0 01/30/2025 Generated for Printing/Faxing/eTransmitting on:?05/22/2025 08:52 AM EST
--- OUTSIDE RECORDS SUMMARY | 2025-03-25 10:00 | XMS_ITS ---
Author Organization [facility] es Address [address] [place] [address] Care Team Providers Care Filter Pulp Washer Name Role Phone Mi Boss Primary Care Provider [phone] Shyjessica Shanae Unavailable [phone] REASON FOR VISIT Pt is a 64 year old female, Replacing her medication, but she is worried about the side effects, Ptstates she is here to talk about replacing a medication, Pt states she is doing ok, LM Medications Medication SIG (Take, Route, Frequency, Duration) Notes Start Date End Date Status OLANZapine 15 MG Tablet 1 tablet Orally once quirino ly ActiveLithium Carbonate ER 300 MG Tablet Extended ReleaseTake 1 tablet Orally twice daily; Duration: 30 daysActiveFish Oil [place]-3 1000 MG Capsule1 capsule Orally Once a dayUnknownNeuriva - Capsuleas directed OrallyUnknownStool Softener 100 MG Capsule1 capsule as needed Orally Once a dayUnknownclonazePAM 1 MG Tablet 1 tablet Orally Once a day; Duration: 30 days10/12/2024Not-Taking/PRNclonazePAM 1 MG Tablet1 tablet Orally Once a day; Duration: 30 days10/12/2024Not-Taking/PRN traZODone HCl 50 MG Tablet1/2-1 tablet at bedtime as needed Orally Once a day; Duration: 30 days5ActiveclonazePAM 0.5 MG Tablet 1/2-1 tablet Orally at bedtime; Duration: 30 days As needed Fill per [facility] last [id number] Vital Signs Temperature 98.0 degrees Fahrenheit 03/25/20 25 Blood pressure systolic 155 mm Hg 03/25/20 25 Blood pressure diastolic 96 mm Hg 025 Heart Rate 71 /min 03/25/2025 Height 63 in 03/25/2025 Weight 144.2 lbs 03/25/2025 BMI 25.54 kg/m2 03/25/2025 Oximetry 99 % 03/25/2025 Encounters Encounter Location Date Provider Diagnosis [address] [address] 03/25/2025 Shanae Knott Bipolar disorder, current episode mixed, severe, without psychotic features F31.63 Assessments Encounter Date Diagnosis (ICD Code) Assessment Notes Treatment Notes Treatment Clinical Notes Section Notes 03/25/2025 Bipolar disorder, cu rrent episode mixed, severe, without psychotic features (ICD-10 - F31.63) Plan Of Treatment Medication Medication Name Sig Start Date Stop Date Notes OLANZapine 15 MG Tablet 1 tablet Orally once quirino ly [place] Carbonate ER 300 MG Tablet Extended ReleaseTake 1 tablet Orally twice daily; Duration: 30 daystraZODone HCl 50 MG Tablet1/2-1 tablet at bedtime as needed Orally Once a day; Duration: 30 days03/25/2025lonazePAM 0.5 MG Tablet 1/2-1 tablet Orally at bedtime; Duration: 30 days03/25/2025Fill per [facility] last filledNext Appt Details Provider Name:Shanae Denton greg, 07/15/2025 03:00:00 PM, [address] [place] [address], [address], Progress Notes * JUAN BAUTISTAOB:1960 ([age] yo F)Acc No.[id number]:03/25/2025 Behavioral Health Patient: Fariha DURAN RAN :?Shanae KnottDOB:1960???Age:64 Y???Sex: FemaleDate:03/25/2025Phone:[phone]:[place], [id number]:Mi Boss Subjective: * Chief Complaints: * P t is a 64 year old female, Replacing her medication, but she is worried about the side effectsPt states she is here to talk about replacing a medicationPt states she is doing okLM * HPI: ???Constitutional:? Pt is being seen today for follow up via in-office visit. Pt is taking medications daily and tolerating meds well. . Pt states worried about clonopin swithch to trazodone.? . Pt denies mood fluctuation. Energy and [...] increased goal-oriented behavior or increase in purposeless activity. Attending work/school as scheduled. . Denies suicidal or homicidal ideation or plan. No morbid thoughts. Interpersonal issues discussed. Support provided. Insight oriented/ Behavior modifying/ Supportive therapy . * Medications: T akingclonazePAM 1 MG Tablet 1 tablet Orally at bedtime , Notes to Pharmacist: Fill per [facility] last filledOLANZapine 15 MG Tablet 1 tablet Orally once daily [place] Carbonate ER 300 MG Tablet Extended Release Take 1 tablet Orally twice daily Taking clonazePAM 1 MG Tablet 1 tablet Orally at bedtime , Notes to Pharmacist: Fill per [facility] last filledTaking OLANZapine 15 MG Tablet 1 tablet Orally once daily Taking [place] Carbonate ER 300 MG Tablet Extended Release Take 1 tablet Orally twice daily Not-Taking/PRNclonazePAM 1 MG Tablet 1 tablet Orally Once a day clonazePAM 1 MG Tablet 1 tablet Orally Once a day Not-Taking/PRN clonazePAM 1 MG Tablet 1 tablet Orally Once a day Not-Taking/PRN clonazePAM 1 MG Tablet 1 tablet Orally Once a day UnknownNeuriva - Capsule as directed Orally Stool Softener 100 MG Capsule 1 capsule as needed Orally Once a day Fish Oil [place]-3 1000 MG Capsule 1 capsule Orally Once a day Medication List reviewed and reconciled with the patientUnknown Neuriva - Capsule as directed Orally Unknown Stool Softener 100 MG Capsule 1 capsule as needed Orally Once a day Unknown Fish Oil [place]-3 1000 MG Capsule 1 capsule Orally Once a day Medication List reviewed and reconciled with the patient Objective: * Vitals: H t: 63 in, Wt: 144.2 lbs, BMI:25.54Index, Temp: 98.0 F, BP: 155/96 mm Hg, SaO2: 99 %, HR: 71 /min. Assessment: * Assessment: 1.?Bipolar disorder, current episode mixed, severe, without psychotic features - F31.63 (Primary)??? Plan: * Treatment: Start traZODone HCl Tablet, 50 MG, 1/2-1 tablet at bedtime as needed, Orally, Once a day, 30 days, 30, Refills 0;?Refill clonazePAM Tablet, 0.5 MG, 1/2-1 tablet, Orally, at bedtime As needed, 30days, 30, Refills 0, Notes to Pharmacist: Fill per [facility] last filled;?Refill [place] CarbonateER Tablet Extended Release, 300 MG, Take 1 tablet, Orally, twice daily, 30 days, 30, Refills 5; Continue OLANZapine Tablet, 15 MG, 1 tablet, Orally, once daily.?? Billing Information: * Procedure Codes: * Electronic signature of RADHA KingHNAlessandro on 05/22/2025 at 08:52 AM EST Sign off status: Pending * Provider: Tiffanie Knott Date: Generated for Printing/Faxing/eTransmitting on:?05/22/2025 08:52 AM EST
--- OUTSIDE RECORDS SUMMARY | 2025-05-08 11:00 | XMS_ITS ---
Author Organization [facility] Serv es Address [address] [place] [address] Care Team Providers Care Real Estate Inspector Name Role Phone Mi Boss Primary Care Provider Shanae Knott Unavailable [phone] REASON FOR VISIT 3 month f/u Encounters Encounter Location Date Provider Diagnosis [place] [address] [place] [address] 05/08/2025 Shanae Knott Plan Of Treatment Next Appt Details Provider Name:Shanae garza, 07/15/2025 03:00:00 PM, [address] [place], [address], Progress Notes * JUAN BAUTISTAOB:1960 ([age] yo F)Acc No.[id number]:05/08/2025 Behavioral Health Patient: Fariha RENEEZORANE :?Shanae KnottDOB:1960???Age:64 Y???Sex: FemaleDate:05/08/2025Phone:[phone]:BRITTANY VARGAS [id number]:Mi Boss Subjective: * Chief Complaints: * 3 month f/u Billing Information: * Procedure Codes: * Electronic signature of CYNTHIA King on 05/22/2025 at 08:52 AM EST Sign off status: Pending * Provider: Tiffanie Knott Date: 07/09/2024 Generated for Printing/Faxing/eTransmitting on:?05/22/2025 08:52 AM EST
--- OUTSIDE RECORDS SUMMARY | 2025-05-22 08:52 | XMS_ITS | Clinical Summary ---
Author Organization [facility] Address [address] [place] [address] Care Team Providers Care Ground Water Pump Installer Name Role Phone Roxane Tom MD Primary Care Provider [phone] Tim Barker MD Unavailable [phone] Allergies Active AllergyReactionsCriticalityNoted DateCommentsChlorpromazineOther: See YgznzwnvQjbd29/16/2015 Caused lock jaw in combination with Stelazine Medications MedicationSigDispense QuantityRefillsLast FilledStart DateEnd DateStatus clonazePAM (KLONOPIN) 0.5 mg tablet Take 0.5 mg by mouth once daily. Also as gctxtz3611/20/2018Active lithium carbonate ER 450 mg CR tablet [...] RecordedNational Score (1-100), lower number is lower vsuu112104/24/2025State Score (1-10), lower number is lower ttzr17806/24/2024Data from: https://www.neighborhoodatlas.medicine[facility] Last address used for [address]/24/2024CommentsUnknownSex and Gender InformationValueDate RecordedSex Assigned at BirthNot on fileLegal SexFemale 01/11/2019 1:21 PM EDTGender IdentityNot on fileSexual OrientationNot on file Plan of Treatment Health MaintenanceDue DateLast DoneCommentsAnxiety Cvxaidrmv03/31/1978Depression Wiwzisacb25/31/1978HIV Jwuxpuley69/31/1978Hepatitis C Atyqzbuzy48/31/1978CT Cqadynbgzmks91/31/2005Cologuard (FIT-DNA)11/03/2004Fecal Occult Blood11/03/2004 Lipid Awexdtdxb17/31/8984Rutkfmxwzakcr92/31/2005Pneumococcal Vaccine: 50+ (1 of 1 - PCV)11/03/2009Shingrix Vaccine (2 of 3)Mammogram Iyvdthixi79/7822Rsedhehxhps86/04/202304/2Colorectal Cancer Evbdnmrld47/04/2023dvance Directive Wensqaaswc05/31/2025Bone Density Screening 11/03/2024Diabetes Bqwtjzhyi17/11/2021, 08/19/2019, 08/18/2019, Additional history existsCovid-19 Vaccine ( - 2024- season)2025 Influenza Vaccine (#1), 03/24/2018, 02/17/2011, Additional history existsDTaP,Tdap,Td Vaccine (2 - Td or Tdap)RSV Vaccine (1 - 1-dose 75+ series)11/03/2034 Insurance Care Teams Team MemberRelationshipSpecialtyStart DateEnd Date Roxane Tom MD [address] [facility] [place] [address] PCP - GeneralFamily Medicine12/14/11 Tim Barker MD [address] [facility] [address] [place] [address] ReferringNeurology01/09/19
--- OUTSIDE RECORDS SUMMARY | 2025-05-22 08:52 | XMS_ITS | Clinical Summary ---
Author Organization [facility] Address [address] [place] [address] Care Team Providers Care Day Care Provider Name Role Phone Roxane Tom MD Primary Care Provider [phone] Xena Marrufo MD Unavailable [phone] Jesus Aguiar DO Unavailable Allergies Active AllergyReactionsCriticalityNoted YmcnNtilnisyCjfalpppaqgrabBmmj23/16/2015 Other Reaction(s): muscle cramps, neck stiffness, Other: See Comments Other reaction(s): muscle cramps, Other: See Comments Caused lock jaw in combination with StelazineCaused facial jaw to lock when used in combination with stelazine Caused facial jaw to lock when used in combination with stelazine Caused lock jaw in combination with Stelazine YqbizifcrktwysdNzdx95/29/2020 Other Reaction(s): muscle cramps, Other (See Comments) [...] MG capsule Active Active Problems ProblemNoted DateDiagnosed HslvNcjiobwgixynjsvafol14/09/2025Hypercalcemia 06/14/2024Vitamin D hsmwlzwact03/09/2025hronic kidney disease, stage 3b 06/14/2024Downbeat nnubslbju84/08/5782Qmowrikd51/08/2024ge-related nuclear cataract of both eyes04/13/2024ry eyes04/13/2024losed fracture of lower end of right radius with routine sbhlmwu5702/10/2024 Resolved Problems ProblemNoted DateDiagnosed DateResolved DateBipolar disorder, current episode mixed, severe, without psychotic wdhodtfd18Hallucinations Overview (11/12/2024): Problem List clean-up per request of Phys. EHR Cmte Pljjmljkgqorfw46HypernatremiaHyperuricemia Lithium useSchizophrenia11/12/2024 11/12/2024Screening mammogram for breast ucupnq62UTI (urinary tract infection) Overview (11/12/2024): Problem List clean-up per request of Phys. EHR Cmte Benign essential HTNomplete tear of right rotator cuff Other chronic painSevere mixed bipolar I disorder without psychotic wsgnotzf70ipolar 1 disorder, manic, mild08/22/GAD (generalized anxiety disorder)08/22/2020 09/30/2024S/P total hysterectomy with removal of both tubes and ovaries Schizoaffective disorder, bipolar type Encounters DateTypeDepartmentCare QbhoUidxizzkkny82/01/2025 2:10 PM EDTOffice Visit [facility] [address] [place] [address] Xena Marrufo MD History of parathyroid surgery (Primary Dx); Chronic kidney disease, stage 3b ([facility]); Vitamin D dfvqrfsnaj80/01/2025amboo flowsheet [facility] [address] [place] [address] Xena Marrufo MD from Last 3 Months Immunizations ImmunizationAdministration DatesNext DueInfluenza, injectable, MDCK, preservative free, jrzktnlhawel14/23/2019Influenza, injectable, quadrivalent, preservative free04/26/2023,05/09/2021,02/14/2020,03/24/2018Influenza, seasonal, ttosubqqhv24/14/2011Influenza, seasonal, injectable, preservative free04/20/2024 Novel qoyiskwja-F5W9-82, preservative-free04/23/2009Tdap108/01/2018Zoster, Dyfqpcrscgt53/14/2022,04/19/2021Zoster, live06/28/2015 Family History Medical HistoryRelationNameCommentsDementiaFatherDiabetesFatherEmphysemaFather CancerMotherRelationNameStatusCommentsFatherDeceasedMotherDeceased Social History Tobacco UseTypesPacks/DayYears UsedDateSmoking Tobacco: NeverSmokeless Tobacco: Never Tobacco Cessation:Counseling Given: Not Answered Alcohol UseStandard Drinks/WeekCommentsNot Currently0 (1 standard drink = 0.6 oz pure alcohol)CommentsUnknownSex and Gender InformationValueDate Recorded Sex Assigned at BirthNot on fileLegal NtyBujfgn37/15/2023 6:35 PM EDTGender IdentityNot on fileSexual OrientationNot on file Last Filed Vital Signs Vital SignReadingTime TakenCommentsBlood Udaivdpk896/8810 2:16 PM EDT Chjdq0280 2:16 PM EDTTemperature--Respiratory Wuvl3046 2:16 PM EDTOxygen Xuywabprct33%03/06/2025 2:16 PM EDTInhaled Oxygen Concentration-- Dzxcow39.3 kg (155 lb)03/06/2025 2:16 PM HEWSecojq075 cm (5' 3 )03/06/2025 2:16 PM EDTBody Mass Index27.4610 2:16 PM EDT Plan of Treatment DateTypeDepartmentCare Team (Latest Contact Info)Aqrhghqevsd03/01/2026 2:30 PM EDTOffice Visit [facility] [address] [place] [address] Xena Marrufo MD [address] [place] [address] Health MaintenanceDue DateLast DoneCommentsCT Zwxtrhztxdeb83/31/1960FIT-DNA 1960FIT1960FOBT1960 9711Qdihjofblfqbq49/31/1960Pap Smear11/03/1980 Cervical Cancer Gsyxbmidb52/31/1990HPV/Aofaeg9111/03/1989Pneumococcal Vaccine: 65+ Years (1 of 1 - PCV)11/03/20099897Ayvcvcuke11/26/202205/OVID-19 Vaccine (2024- season)5106/20/2023, 05/06/2023, 10/07/2022, Additional history zhvyrfNbicfrewaaj06/28/203508/, 01/31/2025, 5Colorectal Cancer Xfrbozsgd61/28/2035Influenza HtkbrvxCphszevmg61/15/2025, 04/20/2024, 04/26/2023, Additional history exists Procedures Procedure NamePriorityDate/TimeAssociated DiagnosisCommentsVITAMIN D 25 HYDROXY UMCCUYudbkvc39/01/2025 2:27 PM EDT Hypercalcemia Hyperparathyroidism (HCC) GBWRURPWedmdmw11/01/2025 2:27 PM EDT Hypercalcemia Hyperparathyroidism (HCC) from Last 3 Months Results * Vitamin D 25 hydroxy Total (03/06/2025 2:27 PM EDT)Specimen (Source)Anatomical Location / LateralityCollection Method / VolumeCollection TimeReceived Time BloodVenous blood specimen / Unknown Narrative Authorizing ProviderResult TypeResult StatusBenSanta Rosa Memorial Hospitalzhen [facility] BLOOD ORDERABLESFinal ResultPerforming OrganizationAddressty/[facility] HospitalPhone Number [place] [address] [place] [address], * Calcium (03/06/2025 2:27 PM EDT)Specimen (Source)Anatomical Location / LateralityCollection Method / VolumeCollection TimeReceived TimeBloodVenous blood specimen / Unknown Narrative Authorizing ProviderResult TypeResult StatusBeWatsonville Community Hospital– Watsonvillezhen [facility] BLOOD ORDERABLESFinal ResultPerforming OrganizationAddPennsylvania Hospital/[facility] HospitalPhone [address] [place] [address], from Last 3 Months Insurance * Guarantor: Nola Waller TypeRelation to PatientDate of BirthPhone Billing AddressPersonal/QzrjbuMdbc44/31/1961 [facility] [place] [address] Care Teams Team MemberRelationshipSpecialtyStart DateEnd Date Roxane Tom MD [address] [place] [address] PCP - GeneralFamily Medicine10/10/23 Xena Marrufo MD [address] [place] [address] Referring PhysicianEndocrinology10/01/24 Jesus Aguiar DO [address] [place] [address] Otolaryngology10/01/24
--- OUTSIDE RECORDS SUMMARY | 2025-05-22 08:52 | XMS_ITS | Clinical Summary ---
Author Organization [facility] Address [address] [place] [address] Care Team Providers Care Veterinary Pharmacologist Name Role Phone Roxane Tom MD Primary Care Provider [phone] Allergies Active AllergyReactionsCriticalityNoted QydyAvbtcljuTspjawmsjnattiYdvj56/16/2015 Other reaction(s): muscle cramps, Other: See Comments Caused lock jaw in combination with Stelazine Caused facial jaw to lock when used in combination with stelazine AhvbjjwnuprqwjpSnqv95/29/2020 Other reaction(s): muscle cramps Caused jaw to lock when used in combination with thorazine when younger, for bipolar disorder Medications MedicationSigDispense QuantityRefillsLast FilledStart DateEnd DateStatus OLANZapine (ZyPREXA) 10 MG tablet 1/2 tab daily HS X 1 wk, and then 1 daily HS thereafter . 30 tablet 05/18/2022ctive paliperidone (INVEGA) 6 MG 24 hr tablet Take 1 (one) tablet (6 mg total) by mouth daily . 30 tablet ctive lithium (LITHOBID) 300 MG CR tablet Take 3 (three) tablets (900 mg total) by mouth daily . 90 tablet ctive clonazePAM (KlonoPIN) 1 MG tablet Indications:KALEN (generalized anxiety disorder)Take 1 (one) tablet (1 mg total) by mouth nightly (Days supply per fill: 30) . 30 tablet ctive Active Problems ProblemNoted DateDiagnosed DateBipolar 1 disorder, manic, mild08/22/2020GAD (generalized anxiety disorder)1S/P total hysterectomy with removal of both tubes and xynxogw3610/18/2019Stage 3 chronic kidney eoliueu4709/18/2019 Resolved Problems ProblemNoted DateDiagnosed DateResolved DateCKD (chronic kidney disease), stage II Family History Medical HistoryRelationCommentsNo Known ProblemsOtherKidney diseaseNeg HxLiver diseaseNeg HxLung diseaseNeg HxTransient ischemic attackNeg HxRelationStatus CommentsOther Social History Tobacco UseTypesPacks/DayYears UsedDateSmoking Tobacco: NeverSmokeless Tobacco: NeverAlcohol UseStandard Drinks/WeekCommentsNot Currently0 (1 standard drink = 0.6 oz pure alcohol)PHQ-2AnswerDate RecordedPHQ-2 Total Fzwse061 CommentsUnknownSex and Gender InformationValueDate RecordedSex Assigned at Not on fileLegal HrlNhnbmj80/03/2021 11:02 AM ESTGender IdentityNot on file Sexual OrientationNot on file Last Filed Vital Signs Vital SignReadingTime TakenCommentsBlood Bcasdeyh746/8308 1:56 PM EDT Pzlvz3382 1:56 PM EDTTemperature--Respiratory Epqm7871 1:56 PM EDTOxygen Tduemmnbpg42%01/18/2022 1:56 PM EDTInhaled Oxygen Concentration-- Mwmjsl68.8 kg (156 lb)01/18/2022 1:56 PM EODOneybf386 cm (5' 3 )01/18/2022 1:56 PM EDTBody Mass Index27.6308 1:56 PM EDT Plan of Treatment Health MaintenanceDue DateLast DoneCommentsCT Yrlapdxsyeca51/31/1960Dexa Scan 1959Fecal DNA1959Fecal occult blood test (FOBT,FIT)1959Urine (micro)albumin/creatinine ratio - Kidney Owkkxno0811/03/1969HIV Screening 11/03/1974Hepatitis C Jnyqmywlo87/31/1978Pap Smear11/03/1980Flexible bdsoqjjpjppjp83/31/2010Pneumococcal Vaccine: 50+ Years (1 of 1 - PCV)11/03/2009 Wellness Visit/2168Oqmfkbyna00/08/202206/01/2021, 10/29/2020, 01/30/2020, Additional history existseGFR - Kidney Ktxbjvs95/08/2021 Cervical Cancer Dwmzvjqrt61/29/2025HPV/Vxphfw19Falls Risk Ertvbmxhiz33/31/2025OVID-19 Vaccine ( - season)/12/2021, 05/09/2021, 09/09/2020, Additional history existsInfluenza Vaccine (#1) /09/2020, 02/14/2020, 05/28/2019, Additional history exists Tetanus/Diphtheria/Pertussis (2 - Td or Tdap)Colonoscopy /09/2021, 09/07/2021olorectal Cancer Screening/Itencztshs95/04/2032 RSV Vaccines (1 - 1-dose 75+ series)11/03/2034Zoster VaccinesCompleted 06/19/2021, 04/19/2021, 06/28/2015HIB VaccinesAged OutNo longer eligible based on patient's age to complete this topicHPV VaccinesAged OutNo longer eligible based on patient's age to complete this topicHepatitis A VaccinesAged OutNo longer eligible based on patient's age to complete this topicHepatitis B VaccinesAged OutNo longer eligible based on patient's age to complete this topic IPV VaccinesAged OutNo longer eligible based on patient's age to complete this topicMeningococcal ACWY VaccineAged OutNo longer eligible based on patient's age to complete this topicMeningococcal B VaccineAged OutNo longer eligible based on patient's age to complete this topicRotavirus VaccinesAged OutNo longer eligible based on patient's age to complete this topic Procedures Procedure NamePriorityDate/TimeAssociated DiagnosisCommentsEXT LAB COMPREHENSIVE TKSNDNUJMHsgfhcz21/03/2022 9:52 AM EST from Last 3 Months or Most Recently Relevant to Health Maintenance Results * (ABNORMAL) External Lab Comprehensive Metabolic Panel (05/08/2022 9:52 AM EST) ComponentValueRef RangeTest MethodAnalysis TimePerformed AtPathologist QaiqanbkmWxxmww772157 - 145 mmol/LPotassium4.03.5 - 5.1 mmol/MAgmvwvfq41985 - 107 mmol/JJspljbcxiwc1954.0 - 32.0 mmol/ZIzzwxqb5282 - 106 mg/vLVEE703.0 - 18.0 mg/dLCreatinine1.30(A)0.58 - 1.02 mg/cAlRMH5wMOU Imgqnlik5Ejlsa ProteinAlbumin3.73.4 - 5.0 g/dLCalcium9.58.5 - 10.1 mg/dLAlkaline Phosphatase ASTALTTotal BilirubinBUN/Creatinine RatioGlobulinAlbumin/Globulin Ratio MagnesiumPhosphorus4.12.6 - 4.7 mg/dLUric AcidSpecimen (Source)Anatomical Location / LateralityCollection Method / VolumeCollection TimeReceived Time 05/08/2022 9:52 AM EST Narrative Authorizing ProviderResult TypeResult StatusUpender Rosangela MCKEON BLOOD ORDERABLESFinal Result from Last 3 Months or Most Recently Relevant to Health Maintenance Insurance * Guarantor: Nadine Waller TypeRelation to PatientDate of BirthPhoneBilling AddressPersonal/VzbcxmBfhn47/31/1961 [phone] (Home) [address] [place] [address] Care Teams Team MemberRelationshipSpecialtyStart DateEnd Date Roxane Tom MD [address] [place] [address] PCP - GeneralFamily Medicine07/09/20
--- OUTSIDE RECORDS SUMMARY | 2025-05-22 08:52 | XMS_ITS | Patient Health Record ---
Author Organization [facility] Address [address] [place] [address] Care Team Providers Care Phd Intern Name Role Phone BossMi Primary Care Provider Jamie García Unavailable [phone] Shanae Knott Unavailable [phone] Allergies Allergen (clinical drug ingredient) Drug/Non Drug Allergy documented on EMR Reaction Allergy Type Onset Date Status Ernie stiffnessDrug AllergyActive Results Component Value Reference Range Notes [place] Reviewed date:09/04/2024 10:21:35 AM Interpretation: Performing Lab: Notes/Report: [facility] 0.9 Reason For Referral No Information Medications Medication SIG (Take, Route, Frequency, Duration) Notes Start Date End Date Status clonazePAM 1 MG Tablet 1 tablet Orally Once a da y; Duration: 30 days 10/12/2024Not-Taking/PRNtraZODone HCl 50 MG Tablet1/2-1 tablet at bedtime as needed Orally Once a day; Duration: 30 days5ActiveStool Softener 100 MG Capsule1 capsule as needed Orally Once a dayUnknownOLANZapine 15 MG Tablet1 tablet Orally once dailyActiveFish Oil [place]-3 1000 MG Capsule1 capsule Orally Once a dayUnknownLithium Carbonate ER 300 MG Tablet Extended ReleaseTake 1 tablet Orally twice dailyActiveclonazePAM 1 MG Tablet1 tablet Orally Once a day; Duration: 30 days10/12/2024Not-Taking/PRNclonazePAM 0.5 MG Tablet 1/2-1 tablet Orally at bedtime As needed Fill per OARRS last jctcup885ActiveNeuriva - Capsuleas directed Orally Unknown Social History Tobacco Use: Social History Observation Description Date Details (start date - stop date) Never Smoker NA - NA Social History GeneralSocial InfoQuestionAnswerNotesTobacco Screen:Are you a:current smoker Tobacco Use:Social InfoQuestionAnswerNotesTobacco Control (Standard)Tobacco use: Nonsmoker Problems Problem Type SNOMED Code ICD Code Onset Dates Problem Status W/U Status Risk Notes Problem Severe mixed bipolar I disorder without psychotic features (70006266) Bipolar disorder, current episode mixed, severe, without psychotic features (F31.63) Activeconfirmed Vital Signs Heart Rate 97 /min 04/24/2025 Zplhmfkepnd16.9 degrees Uowzpibxkr47/19/3342Iwkvaywh33 %04/24/2025lood pressure vnixddkju79 mm Hg04/24/20258973Kcjutc58 in04/24/2025lood pressure uzeoqwyj026 mm Hg 04/24/20252097Tflgyk172.4 lbs106/24/2024BMI27.35 kg/m204/24/2025 Encounters Encounter Location Date Provider Diagnosis [facility] [address] [place] [address] 06/19/2024 Mi Boss Bipolar disorder, current episode mixed, severe, without psychotic features F31.63 [facility] [address] [place] [address] 08/20/2024 Kip Soviak Bipolar disorder, current episode mixed, severe, without psychotic features F31.63 [facility] [address] [place] [address] 09/12/2024 Mi Boss Bipolar disorder, current episode mixed, severe, without psychotic features F31.63 [facility] [address] [place] [address] 09/24/2024 Mi Boss Bipolar disorder, current episode mixed, severe, without psychotic features F31.63 [facility] [address] [place] [address] 10/12/2024 Mi Boss Bipolar disorder, current episode mixed, severe, without psychotic features F31.63 [facility] [address] [place] [address] 10/16/2024 Mi Boss Bipolar disorder, current episode mixed, severe, without psychotic features F31.63 [facility] [address] [place] [address] 11/14/2024 Mi Boss Bipolar disorder, current episode mixed, severe, without psychotic features F31.63 [facility] [address] [place] [address] 12/03/2024 Mi Boss [facility] [address] [place] [address]/15/2025 Mi CoxBipolar disorder, current episode mixed, severe, without psychotic features F31.63[facility] [place] [address]/08/2024[facility] [place] [facility] [place] [place] [address]/Leslie NeubergerBipolar disorder, current episode mixed, severe, without psychotic features F31.63[facility] [place] [facility] [place] [place] [address]/Leslie NeubergerBipolar disorder, current episode mixed, severe, without psychotic features F31.63[facility] [address] [place] [address]/16/2025Leslie NeubergerBipolar disorder, current episode mixed, severe, without psychotic features F31.63[facility] [place] [address]/Leslie Neuberger Bipolar disorder, current episode mixed, severe, without psychotic features F31.63[facility] [address] [place] [address] 05/20/2025Leslie [facility] [place] [facility] [place] [place] [address]/hristy CoxBipolar disorder, current episode mixed, severe, without psychotic features F31.63 and Medication management Z79.899[facility] [place] [facility] [place] [place] [address]/10/2024Leslie NeubergerBipolar disorder, current episode mixed, severe, without psychotic features F31.[address] [place] [address] [place] [address]/Shanae Knott Bipolar disorder, current episode mixed, severe, without psychotic features F31.63[facility] [place] [address]/Shanae KnottBipolar disorder, current episode mixed, severe, without psychotic features F31.63 Assessments Encounter Date Diagnosis (ICD Code) Assessment Notes Treatment Notes Treatment Clinical Notes Section Notes 06/19/2024 Bipolar disorder, cu rrent episode mixed, severe, without psychotic features (ICD-10 - F31.63) 07/18/2024ipolar disorder, current episode mixed, severe, without psychotic [...] severe, without psychotic features (ICD-10 - F31.63) Patient will continue current treatment plan. f/u 1 month Patient verbally acknowledges understanding instructions including medication education and has no further questions comments or concerns at this time. . Recommended treatment for Bipolar disorder includes FDA approved and OFF label medications: second generation antipsychotics and mood stabilizers. Second generation antipsychotic medications can cause headache, drowsiness, agitation, dizziness, nausea, or extrapyramidal symptoms such as tremors, muscle spasms, slowness of movement or jerking of muscles. . Discussed seriousness of taking benzodiazepine medication daily and as needed, risks and benefits discussed including risk of addiction and accidental . Pt verbalized understanding. . High risk medications are drugs that have a heightened risk of causing significant patient harm when they are used in error. High risk medicines include medicines: with a low therapeutic index. that present a high risk when administered by the wrong route or when other system errors occur. Please notify provider for any concerns about your medications. . . Stable . The patient verbalizes understanding with all questions answered thoroughly and is in agreement with treatment plan. . Continue current treatment. Call for problems . GOALS: . Maintain medication regimen _Improve mood stability _Improve anxiety control _Improve social and interpersonal functioning . Patient/Guardian will call sooner if symptoms worsen. Patient understands to go to ER if needed if symptoms become severe. . Crisis Intervention plan was discussed and agreed upon. Patient/Guardian will call 911 in case of emergency. Emergency contact information was provided to the patient/guardian. . Pharmacological management: . Alternative medication plans were [...] severe, without psychotic features (ICD-10 - F31.63) Patient will continue current treatment plan. f/u 3 months Patient verbally acknowledges understanding instructions including medication education and has no further questions comments or concerns at this time. . Recommended treatment for Bipolar disorder includes FDA approved and OFF label medications: second generation antipsychotics and mood stabilizers. Second generation antipsychotic medications can cause headache, drowsiness, agitation, dizziness, nausea, or extrapyramidal symptoms such as tremors, muscle spasms, slowness of movement or jerking of muscles. . Discussed serious side effects of lithium with pt including difficulty speaking, pain or problems with joints, delirium, tremor, memory problems, diarrhea, nausea, weight gain, acne, rash. Patient isto avoid dehydration as it could lead to lithium toxicity. Go to ER for any serious concerns. Serummonitoring regimen discussed. . . Stable . The patient verbalizes understanding with all questions answered thoroughly and is in agreement with treatment plan. . Continue current treatment. Call for problems . GOALS: . Maintain medication regimen _Improve mood stability _Improve anxiety control _Improve social and interpersonal functioning . Patient/Guardian will call sooner if symptoms worsen. Patient understands to go to ER if needed if symptoms become severe. . Crisis Intervention plan was discussed and agreed upon. Patient/Guardian will call 911 in case of emergency. Emergency contact information was provided to the patient/guardian. . Pharmacological management: . Discussed seriousness of taking benzodiazepine medication daily and as needed, risks and benefits discussed including risk of addiction and accidental . Pt verbalized understanding. . High risk medications are drugs that have a heightened risk of causing significant patient harm when they are used in error. High risk medicines include medicines: with a low therapeutic index. that present a high risk when administered by the wrong route or when other system errors occur. Please notify provider for any concerns about your medications. . . Alternative medication plans were discussed with the patient/guardian. All relevant side effects and potential adverse effects were discussed with the patient/guardian. Standard cautions and potential benefits were discussed. Patient/Guardian consented to the start/continuation of the treatment. 04/26/2025ipolar disorder, current episode mixed, severe, without psychotic features (ICD-10 - F31.63) Plan Of Treatment Pending Test Test Name Order Date LITHIUM LEVEL 04/24/2025 [place] 09/15/2023 Next Appt Details Provider Name:Shanae Tiffanie [facility], 07/15/2025 03:00:00 PM, [address] [place], [address], Insurance Providers Payer Name Payer Address Payer Phone Subscriber Number Group Number Insured Name Patient Relationship to Insured Coverage Start Date Coverage End Date [employer] [address] [address] [place] [address] [id number] MICHAEL BAUTISTA Spouse - patient is the spouse of the insured 3 MEDICARE CGS [id number] [facility]BECCA [facility] [address] [address] [phone], DALESpouse - patient is the spouse of the insured Medical (General) History Medical History History ICD Code bipolar kidney disease, stage 3Surgical History Surgery Date(Month/Year) colonoscopy D & Ccomplete ytqxayeanbnx0896
--- OUTSIDE RECORDS SUMMARY | 2025-05-22 08:52 | XMS_ITS | Clinical Summary ---
Author Organization [employer] tem Address [id number] [place] [address] Care Team Providers Care Rotary Driller Helper Name Role Phone Roxane Tom MD Primary Care Provider [phone] Allergies Active AllergyReactionsCriticalityNoted DateCommentsTrifluoperazinemuscle cramps High10/03/2019 Caused jaw to lock when used in combination with thorazine when younger, for bipolar disorder Chlorpromazinemuscle eyflugNnmopn13/29/2020 Caused facial jaw to lock when used [...] in the morning. Neureva Brain supplement daily.Active vdzug-xn-7-dug-abg-soxgggr-ast (KRILL OIL) 1,748-772-05-80 mg capsule Take by mouth in the evening.Active Active Problems ProblemNoted DateDiagnosed DateS/P total hysterectomy with removal of both tubes and blkulps2410/18/2019 Resolved Problems ProblemNoted DateDiagnosed DateResolved DatePost-op pain Pelvic mass Immunizations ImmunizationAdministration DatesNext ZrrE6R9 Inj Preservative Free04/23/2009 Influenza, Im Trivalent Lcxctwmadjrz44/14/2011Influenza, Injectable, Mdck, Preservative Free, Quad05/28/2019Influenza, Injectable, quadrivalent (PF) 03/24/2018Tdap108/01/2018Zoster Live06/28/2015 Family History Medical HistoryRelationNameCommentsHeart attackBrotherHeart failureBrother LymphomaBrotherThroat cancerBrotherDementiaFatherJoseph CappuzzelloDiabetes FatherJoseph CappuzzelloDiabetes 2ArthritisMotherMary Sary CappuzzelloColon cancerMotherMary Sary CappuzzelloDied age 56 (1988)Anesthesia problemsNeg Hx Breast cancerNeg HxRelationNameStatusCommentsBrotherFatherJoseph Cappuzzello AliveMotherMary Sary CappuzzelloAlive Social History Tobacco UseTypesPacks/DayYears UsedDateSmoking Tobacco: NeverSmokeless Tobacco: Never Tobacco Cessation:Counseling Given: Not Answered Alcohol UseStandard Drinks/WeekCommentsNo0 (1 standard drink = 0.6 oz pure alcohol)ChildcareAnswerDate FzurhazgVevdfymlwHejqcmh62/12/2019EmploymentAnswer Date MdccofypRixctxaxljLkusitg09/12/2019Hunger ScreeningAnswerDate Recorded Within the past 12 months we worried whether our food would run out before we got money to buy more.Never True09/05/2023Food Insecurity - InabilityNot on file 4Purpose - LifeAnswerDate RecordedPurpose and direction in lifeUnknown 1CommentsNoSex and Gender InformationValueDate RecordedSex Assigned at OympfKihemb33/28/2020 7:05 PM EDTLegal QzhHuajbe25/06/2015 11:33 AM EDTGender DzrsmwcxTjtyqc22/28/2020 7:05 PM EDTSexual OrientationStraight 10/02/2019 7:05 PM EDT Last Filed Vital Signs Vital SignReadingTime TakenCommentsBlood Sxcohjrg657/7108 8:10 AM EDT Ipybq3832/ 8:25 AM QEJHquyhwsqwjh68.7 ??C (98 ??F)01/31/2025 7:55 AM EDT Respiratory Owou063301/31/2025 8:25 AM EDTOxygen Iexnmivhuu193%01/31/2025 8:25 AM EDTInhaled Oxygen Concentration--Sgkwwf66 kg (150 lb)01/31/2025 6:49 AM EDT Btcfbq482 cm (5' 3 )01/31/2025 6:49 AM EDTBody Mass Index26.57001/31/2025 6:49 AM EDT Plan of Treatment Health MaintenanceDue DateLast DoneCommentsDepression Dcykufwop42/31/1972Adult BMI Follow Up Plan11/03/1977Fall Risk Pskvipiph36/31/2025OVID-19 Vaccine ( season), 05/06/2023, 10/07/2022, Additional history existsInfluenza Gafkiql34, 04/26/2023, 05/09/2021, Additional history existsAdult BMI Ddmaletqs66Tobacco Msvqjyjpv61/28/2026 01/31/2025DTaP,Tdap and Td Vaccines (2 - Td or Tdap) Gkawdnksyoj07, 01/31/2025, 09/07/2021, Additional history existsRSV ( or age 60+ yrs) (1 - 1-dose 75+ series)11/03/2034Pap Smear Rcfatoqhepxh37/29/2020, 10/03/2019Zoster (Shingles) UdbwiweUbdlhcfmr07/14/2022, 04/19/2021, 06/28/2015 Goals GoalPatient Goal TypeAssociated ProblemsRecent ProgressPatient-Stated?Author home Beatriz Licea RN Note: Evaluation of progress towards goal: Patient plans to discharge home with self care and with familyassistance Medical Devices ImplantedTypeAreaManufacturerDevice IdentifierShelf Expiration DateModel / Serial / LotSut Anch Pushlk Bcmps 3.5x19.5 Ster Disp 5ea/Po Ln Required - Ness- 1926bc - [id number] Implanted:Qty: 1 on 07/27/2017 [facility]: [id number]/21/2019AR-1926BC / AR-1926BC / [id number] [place] Swivel - [id number] - [id number] Implanted:Qty: 1 on 07/27/2017 by [facility]: [id number]/21/[id number] / [id number] / [id number] - Ness 7235 - [id number] Implanted:Qty: 1 on 07/27/2017 by Steve Valentin, DO at [facility] ImplantRight: RpwflweiMrsnakj10/01/[id number] / AR 7235 / [id number] Bn 79h1v6xl / Tblr 7 Hl Colr Lcp Ss .7mm 12mm Ns - Sna - [id number] Implanted:Qty: 1 on 12/09/2021 by [facility]: AnkleDEPUY SYNTHES 41.371 / NA / NAScrew Bn 12mm 3.5mm 6mm St Lp Hd Sm Hex Sckt Jerrod Ss 2.5mm Rpl Special Item [id number] - Sna - [id number] Implanted:Qty: 1 on 12/09/2021 by [facility]: AnkleDEPUY SYNTHES 04.812 / NA / NAScrew Bn 14mm 3.5mm 6mm St Lp Sm Hex Jerrod Ss Ns Rpl Special Item [id number] - Sna - [id number] Implanted:Qty: 2 on 12/09/2021 by [facility] DO [facility]: AnkleDEPUY SYNTHES .814 / NA / NAScrew Bn 26mm 3.5mm [address] St Lp Sm Hex Jerrod Ss Ns Rpl [id number] - Sna - [id number] Implanted:Qty: 1 on 12/09/2021 by Steve [facility]in[facility]Right: AnkleDEPUY SYNTHES SALES.826 / NA / NAScrew Bn 16mm 4mm 6mm Sm Hex Sckt Canc Ss 2.5mm Ft Ns Sm - Sna - [id number] Implanted:Qty: 2 on 12/09/2021 by Steve Valentin, DO [facility]: AnkleDEPQuality Technology Services SALES.016 / NA / NAExplantedTypeAreaManufacturerDevice IdentifierShelf Expiration DateModel / Serial / LotScrew Bn 12mm 4mm 6mm Sm Hex Sckt Canc Ss 2.5mm Ft Ns Sm - Sna - [id number] Explanted:Qty: 1 on 12/09/2021 [facility]: AnkleDEPQuality Technology Services SALES.012 / NA / NA Procedures Procedure NamePriorityDate/TimeAssociated DiagnosisCommentsPROVATION COLONOSCOPY Eapeggz1301/31/2025 6:22 AM EDT PAP FFSCPCvjrtpf17/29/2020 3:30 PM EDT Pelvic mass from Last 3 Months or Most Recently Relevant to Health Maintenance Results * Colonoscopy Report (01/31/2025 6:22 AM EDT)Specimen [...] Narrative COPATH - 10/04/2019 12:54 PM EDT [facility] ? [address] [place] [address] ? [place] [address] ? Gynecologic Cytology Consultation ? Patient Name: NOLA WALLER : 1960 (Age: 58) Gender: F Taken: 10/03/2019 Reported: 10/04/2019 Physician(s): Merritt Trinidad MD ([phone]) Copy To: ?? [facility]. Rec. #: [id number] Acct: # [id number] Final Cytologic Interpretation ThinPrep Pap Test (Vaginal/Cervical): Satisfactory for evaluation. A transformation zone component is present. NEGATIVE FOR INTRAEPITHELIAL LESION OR MALIGNANCY. [place] [facility] [place]2019 Interpretation performed at [facility], [address] [place] [address], License number: [id number]. Electronically Signed Out By ?YUNIOR Richter(ASCP) Date of Last Menstrual Period: ? (None Given) Other Clinical Conditions: R19.00 Pelvic mass Menopausal Abnormal Bleeding Source of Specimen ??ThinPrep Pap Test (Vaginal/Cervical) ? Thin Prep Pap (ADMISSIONS MANAGER RN) Fee Code(s): ?? 40312 The Pap test is a screening test with an inherent, but low, probability of error. The Pap test is primarily effective for the diagnosis and prevention of squamous cell carcinoma. Regular screening iscritical for prevention. ThinPrep liquid-based slides, which meet the Respiratory Care Specialist criteria for automated screening, have been screened by the ThinPrep Imaging System (as of 02/20/07) along with an additional manual rescreening by a promotion officer and, if indicated, by a pathologist. Authorizing ProviderResult TypeResult StatusSonyoung Vira-Cuello MD PATHOLOGY/CYTOLOGY ORDERABLESFinal ResultPerforming OrganizationAddress City/State/ZIP CodePhone Number COPATH from Last 3 Months or Most Recently Relevant to Health Maintenance Insurance Advance Directives * Full Code (Latest Code Status on File) Date ActivatedDate InactivatedComments10/09/2019 3:04 PM10/10/2019 4:18 PM Care Teams Team MemberRelationshipSpecialtyStart DateEnd Date Roxane Tom MD [address] [place] [address] PCP - General07/27/17
[2025-05-23 08:09] LABS: Lithium (Eskalith(R)), Serum 0.9 mmol/L (0.5-1.2)
== END 2025-05-22 08:48 | disposition home or self-care (01) ==
LOC: LAB 08:50
PROVIDERS: PCP Family Medicine
DX: F31.63 Bipolar disorder, current episode mixed, severe, without psychotic features (principal)
CPT/HCPCS: 36415; 80178

== ENCOUNTER 2025-06-04 14:08 | Emergency (ER) | payer OTHER, MEDICARE, SELFPAY ==
--- OUTSIDE RECORDS SUMMARY | 2025-01-10 10:00 | XMS_ITS ---
Author Organization [facility] Serv es Address [address] [place] [address] Care Team Providers Care Machinist Linotype Name Role Phone Mi Boss Primary Care Provider [phone] REASON FOR VISIT 6 month f/u Encounters Encounter Location Date Provider Diagnosis [facility] [address] [place] [address] 01/10/2025 Mi Boss Plan Of Treatment Next Appt Details Provider Name:Shanae Tiffanie garza, 07/15/2025 03:00:00 PM, [address] [place] [address], [address], Progress Notes * JUAN BAUTISTAOB:1960 ([age] yo F)Acc No.[id number]:01/10/2025 Behavioral Health Patient: RAN MATHEW :?Mi BossDOB:1960???Age:64 Y???Sex:Female Date:01/10/2025Phone:[phone]:[address] [id number] Subjective: * Chief Complaints: * 6 month f/u * Electronic signature of CYNTHAI Guillen on 06/04/2025 at 04:19 PM ESTSign off status: Pending * Provider: Maria A Boss Date: 0 01/10/2025 Generated for Printing/Faxing/eTransmitting on:?06/04/2025 04:19 PM EST
--- OUTSIDE RECORDS SUMMARY | 2025-01-10 10:15 | XMS_ITS ---
Author Organization [facility] Servic es Address [address] [place] [address] Care Team Providers Care Filling Hauler Weaving Name Role Phone Mi Boss Primary Care Provider Shanae Knott Unavailable [phone] REASON FOR VISIT ROMEO from Eric Boss Encounters Encounter Location Date Provider Diagnosis [place] [facility] [address] [place] [address] 01/10/2025 Shanae Knott Plan Of Treatment Next Appt Details Provider Name:Shanae garza, 07/15/2025 03:00:00 PM, [address] [place], [address], Progress Notes * JUAN BAUTISTAOB:1960 ([age] yo F)Acc No.[id number]:01/10/2025 Behavioral Health Patient: Fariha RENEERAN :?Shanae KnottDOB:1960???Age:64 Y???Sex: FemaleDate:01/10/2025Phone:[phone]:BRITTANY VARGAS [id number]:Mi Boss Subjective: * Chief Complaints: * T OC from Eric Boss Billing Information: * Procedure Codes: * Electronic signature of CYNTHIA King on 06/04/2025 at 04:19 PM EST Sign off status: Pending * Provider: Tiffanie Knott Date: 0 01/10/2025 Generated for Printing/Faxing/eTransmitting on:?06/04/2025 04:19 PM EST
--- OUTSIDE RECORDS SUMMARY | 2025-01-30 08:00 | XMS_ITS ---
Author Organization [facility] Servic es Address [address] [place] [address] Care Team Providers Care Supervisor Sintering Plant Name Role Phone Mi Boss Primary Care Provider [phone] Shanae Knott Unavailable [phone] REASON FOR VISIT ROMEO CC/guille 01/10/25 Encounters Encounter Location Date Provider Diagnosis [place] [address] [place] [address] 01/30/2025 Shanae Knott Plan Of Treatment Next Appt Details Provider Name:Shanae garza, 07/15/2025 03:00:00 PM, [address] [place] [address] [place], [address], Progress Notes * JUAN BAUTISTAOB:1960 ([age] yo F)Acc No.[id number]:01/30/2025 Behavioral Health Patient: Fariha RENEEZORANE :?Shanae KnottDOB:1960???Age:64 Y???Sex: FemaleDate:01/30/2025Phone:[phone]:RBITTANY VARGAS [id number]:Mi Boss Subjective: * Chief Complaints: * T OC CC/guille 01/10/25 * Electronic signature of CYNTHIA King on 06/04/2025 at 04:19 PM EST Sign off status: Pending * Provider: Tiffanie Knott Date: 0 01/30/2025 Generated for Printing/Faxing/eTransmitting on:?06/04/2025 04:19 PM EST
--- OUTSIDE RECORDS SUMMARY | 2025-05-08 11:00 | XMS_ITS ---
Author Organization [facility] Serv es Address [address] [place] [address] Care Team Providers Care Special Needs Librarian Name Role Phone Mi Boss Primary Care Provider [phone] Shanae Knott Unavailable [phone] REASON FOR VISIT 3 month f/u Encounters Encounter Location Date Provider Diagnosis [place] [address] [place] [address] 05/08/2025 Shanae Knott Plan Of Treatment Next Appt Details Provider Name:Shanae garza, 07/15/2025 03:00:00 PM, [address] [facility] [place], [address], Progress Notes * JUAN BAUTISTAOB:1960 ([age] yo F)Acc No.[id number]:05/08/2025 Behavioral Health Patient: Fariha RENEEZORANE :?Shanae KnottDOB:1960???Age:64 Y???Sex: FemaleDate:05/08/2025Phone:[phone]:BRITTANY VARGAS [id number]:Mi Boss Subjective: * Chief Complaints: * 3 month f/u Billing Information: * Procedure Codes: * Electronic signature of CYNTHIA King on 06/04/2025 at 04:19 PM EST Sign off status: Pending * Provider: Tiffanie Knott Date: 07/09/2024 Generated for Printing/Faxing/eTransmitting on:?06/04/2025 04:19 PM EST
[2025-06-04] VITALS (27 sets, daily range): BP systolic 148–190; BP diastolic 78–107; PULSE 75–81; TEMP 36.7–36.9; O2SAT 93–100; BMI 26.6
--- NOTE | 2025-06-04 14:23 | ECG_ITS ---
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 Measurements Intervals [place] Rate: 77 P: 84 IA: 206 QRS: 75 QRSD: 118 T: 70 QT: 416 QTc: 448 Interpretive Statements 1100 Sinus rhythm 2440 Incomplete right bundle branch block 7300 Indeterminate axis 9130 borderline ECG No previous ECG available for comparison Electronically Signed On 06-04-2025 19:21:23 EST by IRENA WILL M.D.
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
[2025-06-04 15:00] LABS: Hematocrit 36.4 % (36.0-48.0); Hemoglobin 12.0 g/dL (12.0-16.0); Immature Granulocytes Abs Auto 0.03 10^3/uL (0.00-0.03); Immature Granulocytes Pct Auto 0.4 % (0.0-0.5); Lymphocytes Absolute Auto 1.8 10^3/uL (1.2-3.8); Mean Corpuscular HGB Conc 33.0 g/dL (29.9-35.2); Mean Corpuscular Hemoglobin 32.8 pg (26.7-34.0); Mean Corpuscular Volume 99.5 fL (81.0-99.0); Platelet Count 239 10^3/uL (150-450); Red Blood Count 3.66 10^6/uL (4.20-5.40); White Blood Count 8.4 10^3/uL (4.0-11.0)
--- NOTE | 2025-06-04 15:07 | PC.NURSE ---
proposal lead writer spoke with Carmina with sp proposal lead writer with have porsha fax over face sheet and labs will continue plan of care
[2025-06-04 15:15] LABS: Alanine Aminotransferase 26 U/L (14-59); Albumin Globulin Ratio 1.2; Albumin Level 3.7 g/dL (3.4-5.0); Alkaline Phosphatase 23 U/L (46-116); Anion Gap 6.8; Aspartate Amino Transferase 16 U/L (15-37); Blood Urea Nitrogen 22.0 mg/dL (7.0-18.0); Calcium 9.1 mg/dL (8.5-10.1); Carbon Dioxide 31.5 mmol/L (21.0-32.0); Chloride 109 mmol/L (98-107); Estimated GFR (African America 41 (>=60 mL/min/1.73m^2); Estimated GFR (Non-African Ame 34 (>=60 mL/min/1.73m^2); Globulin 3.0 g/dL; Glucose 104 mg/dL (74-106); Potassium 4.3 mmol/L (3.5-5.1); Salicylate <2.8 mg/dL (<=19.9); Sodium 143 mmol/L (136-145); Total Protein 6.7 g/dL (6.4-8.2)
[2025-06-04 15:18] LABS: Acetaminophen <2.0 ug/mL (10.0-30.0)
[2025-06-04 16:17] LABS: Glucose Urine UA NEGATIVE (NEGATIVE)
--- OUTSIDE RECORDS SUMMARY | 2025-06-04 16:19 | XMS_ITS | Clinical Summary ---
Author Organization [facility] Address [address] [place] [address] Care Team Providers Care Projection Printer Name Role Phone Roxane Tom MD Primary Care Provider [phone] Xena Marrufo MD Unavailable [phone] Jesus Aguiar DO Unavailable [phone] Allergies Active AllergyReactionsCriticalityNoted AbcqUyiuxkejYafnbioozuciwmCcey27/16/2015 Other Reaction(s): muscle cramps, neck stiffness, Other: See Comments Other reaction(s): muscle cramps, Other: See Comments Caused lock jaw in combination with StelazineCaused facial jaw to lock when used in combination with stelazine Caused facial jaw to lock when used in combination with stelazine Caused lock jaw in combination with Stelazine AhogejxjjizlgcoXqgg09/29/2020 Other Reaction(s): muscle cramps, Other (See Comments) [...] MG capsule Active Active Problems ProblemNoted DateDiagnosed DntrVqrwowjrjbptyqtxhyr06/09/2025Hypercalcemia 06/14/2024Vitamin D fcaxmvuszg80/09/2025hronic kidney disease, stage 3b 06/14/2024Downbeat exszyhomj50/08/7156Rwivmzbw88/08/2024ge-related nuclear cataract of both eyes04/13/2024ry eyes04/13/2024losed fracture of lower end of right radius with routine zuwexyb7502/10/2024 Resolved Problems ProblemNoted DateDiagnosed DateResolved DateBipolar disorder, current episode mixed, severe, without psychotic scmvfdfj57Hallucinations Overview (11/12/2024): Problem List clean-up per request of Phys. EHR Cmte Sukfiumsojywvn76HypernatremiaHyperuricemia Lithium useSchizophrenia11/12/2024 11/12/2024Screening mammogram for breast tqlecc46UTI (urinary tract infection) Overview (11/12/2024): Problem List clean-up per request of Phys. EHR Cmte Benign essential HTNomplete tear of right rotator cuff Other chronic painSevere mixed bipolar I disorder without psychotic ytyzhyku87ipolar 1 disorder, manic, mild08/22/GAD (generalized anxiety disorder)08/22/2020 09/30/2024S/P total hysterectomy with removal of both tubes and ovaries Schizoaffective disorder, bipolar type Encounters DateTypeDepartmentCare YnpnMbdqeepmbjh07/01/2025 2:10 PM EDTOffice Visit [facility] [address] [place] [phone] Xena Marrufo MD History of parathyroid surgery (Primary Dx); Chronic kidney disease, stage 3b ([facility]); Vitamin D jbdhmgbaos77/01/2025amboo flowsheet [facility] [address] [place] [phone] Xena Marrufo MD from Last 3 Months Immunizations ImmunizationAdministration DatesNext DueInfluenza, injectable, MDCK, preservative free, tprgjcheisdw45/23/2019Influenza, injectable, quadrivalent, preservative free04/26/2023,05/09/2021,02/14/2020,03/24/2018Influenza, seasonal, xsrhblqzca63/14/2011Influenza, seasonal, injectable, preservative free04/20/2024 Novel rqqebjcst-M3V1-26, preservative-free04/23/2009Tdap108/01/2018Zoster, Mwkmvnjcpjr86/14/2022,04/19/2021Zoster, live06/28/2015 Family History Medical HistoryRelationNameCommentsDementiaFatherDiabetesFatherEmphysemaFather CancerMotherRelationNameStatusCommentsFatherDeceasedMotherDeceased Social History Tobacco UseTypesPacks/DayYears UsedDateSmoking Tobacco: NeverSmokeless Tobacco: Never Tobacco Cessation:Counseling Given: Not Answered Alcohol UseStandard Drinks/WeekCommentsNot Currently0 (1 standard drink = 0.6 oz pure alcohol)CommentsUnknownSex and Gender InformationValueDate Recorded Sex Assigned at BirthNot on fileLegal ZrsFvjfvn51/15/2023 6:35 PM EDTGender IdentityNot on fileSexual OrientationNot on file Last Filed Vital Signs Vital SignReadingTime TakenCommentsBlood Uqbszaji095/8810 2:16 PM EDT Ulled3421 2:16 PM EDTTemperature--Respiratory Akca4428 2:16 PM EDTOxygen Zopggcvzyi31%03/06/2025 2:16 PM EDTInhaled Oxygen Concentration-- Xltivv72.3 kg (155 lb)03/06/2025 2:16 PM ILHQcaens910 cm (5' 3 )03/06/2025 2:16 PM EDTBody Mass Index27.4610 2:16 PM EDT Plan of Treatment DateTypeDepartmentCare Team (Latest Contact Info)Jwbklasmuim12/01/2026 2:30 PM EDTOffice Visit [facility] [address] [place] [address] Xena Marrufo MD [address] [place] [address] Health MaintenanceDue DateLast DoneCommentsCT Nihjmjzjsuzt20/31/1960FIT-DNA 1960FIT1960FOBT1960 8024Pluvertigidvo38/31/1960Pap Smear11/03/1980 Cervical Cancer Tsdbqgxqa94/31/1990HPV/Xyvcjo6211/03/1989Pneumococcal Vaccine: 65+ Years (1 of 1 - PCV)11/03/20094319Aunjbtjwa65/26/202205/0059Omxjlmqyfrl46/28/2035 01/31/2025, 01/31/2025, 5Colorectal Cancer Ufscgwaui31/28/2035Influenza AybitjsMqbvepyuc79/15/2025, 04/20/2024, 04/26/2023, Additional history exists Procedures Procedure NamePriorityDate/TimeAssociated DiagnosisCommentsVITAMIN D 25 HYDROXY UJCUMKjdapci00/01/2025 2:27 PM EDT Hypercalcemia Hyperparathyroidism (HCC) DHIKREPKkmylyo10/01/2025 2:27 PM EDT Hypercalcemia Hyperparathyroidism (HCC) from Last 3 Months Results * Vitamin D 25 hydroxy Total (03/06/2025 2:27 PM EDT)Specimen (Source)Anatomical Location / LateralityCollection Method / VolumeCollection TimeReceived Time BloodVenous blood specimen / Unknown Narrative Authorizing ProviderResult TypeResult StatusBenMethodist Hospitals Jamel BATISTAAB BLOOD ORDERABLESFinal ResultPerforming OrganizationAddGeisinger-[facility]ist[facility] CodePhone Number [facility] [address] [place] [address], * Calcium (03/06/2025 2:27 PM EDT)Specimen (Source)Anatomical Location / LateralityCollection Method / VolumeCollection TimeReceived TimeBloodVenous blood specimen / Unknown Narrative Authorizing ProviderResult TypeResult StatusBenMethodist Hospitals Jamel DOLAB BLOOD ORDERABLESFinal ResultPerforming OrganizationAddressty/[facility] CenterPhone [place] [address] [place] [address], from Last 3 Months Insurance * Guarantor: Nola Waller TypeRelation to PatientDate of BirthPhone Billing AddressPersonal/JvcuvbLzjh11/31/1961 [facility] [place] [address] Care Teams Team MemberRelationshipSpecialtyStart DateEnd Date Roxane Tom MD [address] [place] [address] PCP - GeneralFawyly Medicine10/10/23 Xena Marrufo MD [address] [place] [address] Referring PhysicianEndocrinology10/01/24 Jesus Aguiar DO [address] [place] [address] Otolaryngology10/01/24
--- OUTSIDE RECORDS SUMMARY | 2025-06-04 16:19 | XMS_ITS | Clinical Summary ---
Author Organization [facility] Address [address] [place] [address] Care Team Providers Care Maintenance Person Name Role Phone Roxane Tom MD Primary Care Provider [phone] Tim Barker MD Unavailable [phone] Allergies Active AllergyReactionsCriticalityNoted DateCommentsChlorpromazineOther: See PxsxtxxoSyfs89/16/2015 Caused lock jaw in combination with Stelazine Medications MedicationSigDispense QuantityRefillsLast FilledStart DateEnd DateStatus clonazePAM (KLONOPIN) 0.5 mg tablet Take 0.5 mg by mouth once daily. Also as nwnabm4311/20/2018Active lithium carbonate ER 450 mg CR tablet [...] RecordedNational Score (1-100), lower number is lower tmgq152304/24/2025State Score (1-10), lower number is lower sucw23206/24/2024Data from: https://www.neighborhoodatlas.medicine.[facility]/. Last address used for [address]/24/2024CommentsUnknownSex and Gender InformationValueDate RecordedSex Assigned at BirthNot on fileLegal SexFemale 01/11/2019 1:21 PM EDTGender IdentityNot on fileSexual OrientationNot on file Plan of Treatment Health MaintenanceDue DateLast DoneCommentsAnxiety Ybvtdxylx24/31/1978Depression Venaeekgv48/31/1978HIV Pgbfozhqu93/31/1978Hepatitis C Gclsuhhln96/31/1978CT Vooyfzsddtmd01/31/2005Cologuard (FIT-DNA)11/03/2004Fecal Occult Blood11/03/2004 Lipid Cauofwitx14/31/6824Islmsfnshjato03/31/2005Pneumococcal Vaccine: 50+ (1 of 1 - PCV)11/03/2009Shingrix Vaccine (2 of 3)Mammogram Otmkeljlo74/9170Nsqyrrisvpj39/04/202304/2Colorectal Cancer Ikjofpygu31/04/2023dvance Directive Masmczsgxz22/31/2025Bone Density Screening 11/03/2024Diabetes Smjwnhtcg06/11/2021, 08/19/2019, 08/18/2019, Additional history existsCovid-19 Vaccine ( - 2024- season)2025 Influenza Vaccine (#1), 03/24/2018, 02/17/2011, Additional history existsDTaP,Tdap,Td Vaccine (2 - Td or Tdap)RSV Vaccine (1 - 1-dose 75+ series)11/03/2034 Insurance Care Teams Team MemberRelationshipSpecialtyStart DateEnd Date Roxane Tom MD [address] [facility] [place] [place] [address] PCP - GeneralFamily Medicine12/14/11 Tim Barker MD [address] [facility] [address] [place] [address] ReferringNeurology01/09/19
--- OUTSIDE RECORDS SUMMARY | 2025-06-04 16:19 | XMS_ITS | Patient Health Record ---
Author Organization [facility] [facility] Address [address] [place] [address] Care Team Providers Care Picking Machine Operator Name Role Phone BossMi Primary Care Provider [phone] Jamie García Unavailable [phone] Shanae Knott Unavailable [phone] Allergies Allergen (clinical drug ingredient) Drug/Non Drug Allergy documented on EMR Reaction Allergy Type Onset Date Status Ernie stiffnessDrug AllergyActive Results Component Value Reference Range Notes [place] Reviewed date:09/04/2024 10:21:35 AM Interpretation: Performing Lab: Notes/Report: [place] 0.9 Reason For Referral No Information Medications [...] MG Tablet1 tablet Orally once dailyActiveFish Oil Elmore-3 1000 MG Capsule1 capsule Orally Once a dayUnknownLithium Carbonate ER 300 MG Tablet Extended ReleaseTake 1 tablet Orally twice dailyActiveclonazePAM 1 MG Tablet1 tablet Orally Once a day; Duration: 30 days10/12/2024Not-Taking/PRNclonazePAM 0.5 MG Tablet 1/2-1 tablet Orally at bedtime As needed Fill per OARRS last khrohu175ActiveNeuriva - Capsuleas directed Orally Unknown Social History [...] mixed bipolar I disorder without psychotic features ([id number]) Bipolar disorder, current episode mixed, severe, without psychotic features (F31.63) Activeconfirmed Vital Signs Heart Rate 97 /min 04/24/2025 Eiwcpjtggqp85.9 degrees Nmpcspouob59/19/4939Lpnlucpx40 %04/24/2025lood pressure edwuolbli00 mm Hg04/24/20257586Xtyhxe64 in04/24/2025lood pressure ulzmtaps795 mm Hg 04/24/20252809Kbmeev166.4 lbs106/24/2024BMI27.35 kg/m204/24/2025 Encounters Encounter Location Date Provider Diagnosis [place] [address] [place] [address] 06/19/2024 Mi Boss Bipolar disorder, current episode mixed, severe, without psychotic features F31.63 [place] [address] [place] [address] 08/20/2024 Kip Soviak Bipolar disorder, current episode mixed, severe, without psychotic features F31.63 [place] [address] [place] [address] 09/12/2024 Mi Boss Bipolar disorder, current episode mixed, severe, without psychotic features F31.63 [place] [address] [place] [address] 09/24/2024 Mi Boss Bipolar disorder, current episode mixed, severe, without psychotic features F31.63 [place] [address] [place] [address] 10/12/2024 Mi Boss Bipolar disorder, current episode mixed, severe, without psychotic features F31.63 [place] [address] [place] [address] 10/16/2024 Mi Boss Bipolar disorder, current episode mixed, severe, without psychotic features F31.63 [facility] [address] [place] [address] 11/14/2024 Mi Boss Bipolar disorder, current episode mixed, severe, without psychotic features F31.63 [facility] [address] [place] [address] 12/03/2024 Mi Boss [facility] [address] [place] [address]/15/2025 Mi CoxBipolar disorder, current episode mixed, severe, without psychotic features F31.63[facility] [place] [address]/08/2024[facility] [place] [address]/Leslie NeubergerBipolar disorder, current episode mixed, severe, without psychotic features F31.63[facility] [place] [address]/Leslie NeubergerBipolar disorder, current episode mixed, severe, without psychotic features F31.63[facility] [address] [place] [address]/Leslie NeubergerBipolar disorder, current episode mixed, severe, without psychotic features F31.63[facility] [place] [address]/Leslie Neuberger Bipolar disorder, current episode mixed, severe, without psychotic features F31.63[facility] [place] [address] 05/20/2025[facility] [place] [address]/[facility] [place] [address]/hristy CoxBipolar disorder, current episode mixed, severe, without psychotic features F31.63 and Medication management Z79.899[facility] [place] [address]Shanae Knott Bipolar disorder, current episode mixed, severe, without psychotic features F31.63[facility] [place] [address]/20/2025Leslilucinda NeubergerBipolar disorder, current episode mixed, severe, without psychotic features F31.63[facility] [place] [address] 04/24/2025Leslie NeubergerBipolar disorder, current episode mixed, severe, without [...] of movement or jerking of muscles. . Stable . The patient verbalizes understanding [...] consented to the start/continuation of the treatment. . Discussed serious side effects of lithium with pt including difficulty speaking, pain or problems with joints, delirium, tremor, memory problems, diarrhea, nausea, weight gain, acne, rash. Patient isto avoid dehydration as it could lead to lithium toxicity. Go to ER for any serious concerns. Serummonitoring regimen discussed. . Discussed seriousness of taking benzodiazepine medication [...] provider for any concerns about your medications. Educated on new antidepressant. Made aware of Black Box Warning that it can increase suicidal thoughts, especially in minors. If this happens go to the ER. Make the office aware or go to the ER, if you experience seizures or an increase in activity and irritability. Made aware to not abruptly stop medication. Medication can cause headache and nausea. .Denies suicidal or homicidal ideation or plan. No morbid thoughts. Interpersonal issues discussed.Support provided Insight oriented/ Behavior modifying/ Supportive therapy . . 5Bipolar disorder, current episode mixed, severe, without [...] Test Name Order Date LITHIUM LEVEL 04/24/2025 [place] 09/15/2023 Next Appt Details Provider Name:Shanae Denton gertrudis, 07/15/2025 03:00:00 PM, [address] [place], [address], Insurance Providers Payer Name Payer Address Payer Phone Subscriber Number Group Number Insured Name Patient Relationship to Insured Coverage Start Date Coverage End Date [employer] [address] [address] [place] [address] [id number] MICHAEL BAUTISTA Spouse - patient is the spouse of the insured 3 MEDICARE CGS [id number] REBECCA ROSENBAUM [address] [address] [id number], DALESpouse - patient is the spouse of the insured Medical (General) History Medical History History ICD Code bipolar kidney disease, stage 3Surgical History Surgery Date(Month/Year) colonoscopy D & Ccomplete dxvkjvjcrfvv9074
--- OUTSIDE RECORDS SUMMARY | 2025-06-04 16:19 | XMS_ITS | Clinical Summary ---
Author Organization [employer] [facility] Address [id number] [place] [address] Care Team Providers Care Trial Court Judge Name Role Phone Roxane Tom MD Primary Care Provider [phone] Allergies Active AllergyReactionsCriticalityNoted DateCommentsTrifluoperazinemuscle cramps High10/03/2019 Caused jaw to lock when used in combination with thorazine when younger, for bipolar disorder Chlorpromazinemuscle pkpejzTksdlj22/29/2020 Caused facial jaw to lock when used [...] in the morning. Neureva Brain supplement daily.Active ebfhx-pf-1-mtg-shd-wyfgcdr-ast (KRILL OIL) 1,836-541-93-80 mg capsule Take by mouth in the evening.Active Active Problems ProblemNoted DateDiagnosed DateS/P total hysterectomy with removal of both tubes and hlgpnad3410/18/2019 Resolved Problems ProblemNoted DateDiagnosed DateResolved DatePost-op pain Pelvic mass Immunizations ImmunizationAdministration DatesNext XiaS0N7 Inj Preservative Free04/23/2009 Influenza, Im Trivalent Mjigkoaquimm41/14/2011Influenza, Injectable, Mdck, Preservative Free, Quad05/28/2019Influenza, Injectable, quadrivalent [...] standard drink = 0.6 oz pure alcohol)ChildcareAnswerDate GcxuvcwsCxsfkabnaXcjpvjx80/12/2019EmploymentAnswer Date AasyrkpzOegpabdtzyKhqlpuz08/12/2019Hunger ScreeningAnswerDate Recorded Within the past 12 months we worried whether our food would run out before we got money to buy more.Never True09/05/2023Food Insecurity - InabilityNot on file 4Purpose - LifeAnswerDate RecordedPurpose and direction in lifeUnknown 1CommentsNoSex and Gender InformationValueDate RecordedSex Assigned at UefvcRoxrjp82/28/2020 7:05 PM EDTLegal BmvHdijbs57/06/2015 11:33 AM EDTGender VsagffykPooqtq36/28/2020 7:05 PM EDTSexual OrientationStraight 10/02/2019 7:05 PM EDT Last Filed Vital Signs Vital SignReadingTime TakenCommentsBlood Ffklogcb217/7108 8:10 AM EDT Mubkz9292/ 8:25 AM FJWHypwilzhriy58.7 ??C (98 ??F)01/31/2025 7:55 AM EDT Respiratory Idor005701/31/2025 8:25 AM EDTOxygen Zxkvjhsibs814%01/31/2025 8:25 AM EDTInhaled Oxygen Concentration--Mkvzsj19 kg (150 lb)01/31/2025 6:49 AM EDT Pfbthq728 cm (5' 3 )01/31/2025 6:49 AM EDTBody Mass Index26.57001/31/2025 6:49 AM EDT Plan of Treatment Health MaintenanceDue DateLast DoneCommentsDepression Miamgircl33/31/1972Adult BMI Follow Up Plan11/03/1977Fall Risk Xzqgpcllq26/31/2025OVID-19 Vaccine ( season), 05/06/2023, 10/07/2022, Additional history existsInfluenza Scyxdjn42, 04/26/2023, 05/09/2021, Additional history existsAdult BMI Mkdcmydpm89Tobacco Ofjvtopcc01/28/2026 01/31/2025DTaP,Tdap and Td Vaccines (2 - Td or Tdap) Nnnuoacdnmm63, 01/31/2025, 09/07/2021, Additional history existsRSV ( or age 60+ yrs) (1 - 1-dose 75+ series)11/03/2034Pap Smear Mnbhwkwqnanj43/29/2020, 10/03/2019Zoster (Shingles) RasrlbrRhldjwcdw80/14/2022, 04/19/2021, 06/28/2015 Goals GoalPatient Goal TypeAssociated ProblemsRecent ProgressPatient-Stated?Author home Beatriz Licea RN Note: Evaluation of progress towards goal: Patient plans to discharge home with self care and with familyassistance Medical Devices ImplantedTypeAreaManufacturerDevice IdentifierShelf Expiration DateModel / Serial / LotSut Anch Pushlk Bcmps 3.5x19.5 Ster Disp 5ea/Po Ln Required - Ness- 1926bc - [id number] Implanted:Qty: 1 on 07/27/2017 [facility] [id number]/21/2019AR-1926BC / AR-1926BC / [id number] Joice Swivel - [id number] - [id number] Implanted:Qty: 1 on 07/27/2017 by [facility]: [id number]/21/2372ES0982WTN / AV7320ART / [id number] - Ness 7235 - [id number] Implanted:Qty: 1 on 07/27/2017 by Steve Valentin, DO at [facility] ImplantRight: HdcjqlhsLkvfqej96/01/5155PR4677 / AR 7235 / [id number] Bn 84u9l1dh / Tblr 7 Hl Colr Lcp Ss .7mm 12mm Ns - Sna - [id number] Implanted:Qty: 1 on 12/09/2021 by [facility]: AnkleDEPUY SYNTHES 41.371 / NA / NAScrew Bn 12mm 3.5mm [address] St Lp Hd Sm Hex Sckt Jerrod Ss 2.5mm Rpl Special Item [id number] - Sna - [id number] Implanted:Qty: 1 on 12/09/2021 [facility]: AnkleDEPUY SYNTHES 04.812 / NA / NAScrew Bn 14mm 3.5mm 6mm St Lp Sm Hex Jerrod Ss Ns Rpl Special Item [id number] - Sna - [id number] Implanted:Qty: 2 on 12/09/2021 by [facility]: AnkleDEPUY SYNTHES .814 / NA / NAScrew Bn 26mm 3.5mm [address] Lp Sm Hex Jerrod Ss Ns Rpl [id number] - Sna - [id number] Implanted:Qty: 1 on 12/09/2021 by [facility]wRight: AnkleDEPUY SYNTHES SALES.826 / NA / NAScrew Bn 16mm 4mm 6mm Sm Hex Sckt Canc Ss 2.5mm Ft Ns Sm - Sna - [id number] Implanted:Qty: 2 on 12/09/2021 by Steve Valentin, DO [facility]: AnkleDEPNet Orange SALES.016 / NA / NAExplantedTypeAreaManufacturerDevice IdentifierShelf Expiration DateModel / Serial / LotScrew Bn 12mm 4mm 6mm Sm Hex Sckt Canc Ss 2.5mm Ft Ns Sm - Sna - [id number] Explanted:Qty: 1 on 12/09/2021 [facility]: AnkleDEPNet Orange SALES.012 / NA / NA Procedures Procedure NamePriorityDate/TimeAssociated DiagnosisCommentsPROVATION COLONOSCOPY Upivlwt4101/31/2025 6:22 AM EDT PAP ZSABPSnbwtrx40/29/2020 3:30 PM EDT Pelvic mass from Last [...] Narrative COPATH - 10/04/2019 12:54 PM EDT [facility] ? [address] [place] [address] ? [place] [address] ? Gynecologic Cytology Consultation ? Patient Name: NOLA WALLER : 1960 (Age: 58) Gender: F Taken: 10/03/2019 Reported: 10/04/2019 Physician(s): Merritt Trinidad MD ([phone]) Copy To: [facility]. Rec. #: [id number] Acct: # [id number] Final Cytologic Interpretation ThinPrep Pap Test (Vaginal/Cervical): Satisfactory for evaluation. A transformation zone component is present. NEGATIVE FOR INTRAEPITHELIAL LESION OR MALIGNANCY. ?? [facility]/10/04/2019 Interpretation performed at [facility], [address] [place] [address], License number: [id number]. Electronically Signed Out By ?YUNIOR Richter(ASCP) Date of Last Menstrual Period: ? (None Given) Other Clinical Conditions: R19.00 Pelvic mass Menopausal Abnormal Bleeding Source of Specimen ??ThinPrep Pap Test (Vaginal/Cervical) ? Thin Prep Pap (MIXING MACHINE FEEDER) Fee Code(s): ?? 93926 The Pap test is a screening test with an inherent, but low, probability of error. The Pap test is primarily effective for the diagnosis and prevention of squamous cell carcinoma. Regular screening iscritical for prevention. ThinPrep liquid-based slides, which meet the Geotechnical Operating Engineer criteria for automated screening, have been screened by the ThinPrep Imaging System (as of 02/20/07) along with an additional manual rescreening by a carding machine operator and, if indicated, by a pathologist. Authorizing ProviderResult TypeResult StatusSonyoung Vira-Cuello MD PATHOLOGY/CYTOLOGY ORDERABLESFinal ResultPerforming OrganizationAddress City/State/ZIP CodePhone Number COPATH from Last 3 Months or Most Recently Relevant to Health Maintenance Insurance Advance Directives * Full Code (Latest Code Status on File) Date ActivatedDate InactivatedComments10/09/2019 3:04 PM10/10/2019 4:18 PM Care Teams Team MemberRelationshipSpecialtyStart DateEnd Date Roxane Tom MD [address] [place] [address] PCP - General07/27/17
--- OUTSIDE RECORDS SUMMARY | 2025-06-04 16:20 | XMS_ITS | Clinical Summary ---
Author Organization [facility] Address [address] [place] [address] Care Team Providers Care Service Dog Trainer Name Role Phone Roxane Tom MD Primary Care Provider [phone] Allergies Active AllergyReactionsCriticalityNoted ObolKqyrvtgnHjtfkoyoglqhupEmcr56/16/2015 Other reaction(s): muscle cramps, Other: See Comments Caused lock jaw in combination with Stelazine Caused facial jaw to lock when used in combination with stelazine SnwgcjlphbmbwtsMlii46/29/2020 Other reaction(s): muscle cramps Caused jaw to [...] hysterectomy with removal of both tubes and avnpigr1210/18/2019Stage 3 chronic kidney twijada0809/18/2019 Resolved Problems ProblemNoted DateDiagnosed DateResolved DateCKD (chronic kidney disease), stage II Family History Medical HistoryRelationCommentsNo Known ProblemsOtherKidney diseaseNeg HxLiver diseaseNeg HxLung diseaseNeg HxTransient ischemic attackNeg HxRelationStatus CommentsOther Social History Tobacco UseTypesPacks/DayYears UsedDateSmoking Tobacco: NeverSmokeless Tobacco: NeverAlcohol UseStandard Drinks/WeekCommentsNot Currently0 (1 standard drink = 0.6 oz pure alcohol)PHQ-2AnswerDate RecordedPHQ-2 Total Mmhgs653 CommentsUnknownSex and Gender InformationValueDate RecordedSex Assigned at Not on fileLegal EoxXryrgl65/03/2021 11:02 AM ESTGender IdentityNot on file Sexual OrientationNot on file Last Filed Vital Signs Vital SignReadingTime TakenCommentsBlood Zkrbqcgm151/8308 1:56 PM EDT Iixvr2984 1:56 PM EDTTemperature--Respiratory Qyzr0453 1:56 PM EDTOxygen Rcytgoyzar94%01/18/2022 1:56 PM EDTInhaled Oxygen Concentration-- Pmotvv40.8 kg (156 lb)01/18/2022 1:56 PM IOAMpcbgv072 cm (5' 3 )01/18/2022 1:56 PM EDTBody Mass Index27.6308 1:56 PM EDT Plan of Treatment Health MaintenanceDue DateLast DoneCommentsCT Gbujutmxhjzf63/31/1960Dexa Scan 1959Fecal DNA1959Fecal occult blood test (FOBT,FIT)1959Urine (micro)albumin/creatinine ratio - Kidney Igwznrq0611/03/1969HIV Screening 11/03/1974Hepatitis C Szsebwmmx82/31/1978Pap Smear11/03/1980Flexible mfvppiqpaitix27/31/2010Pneumococcal Vaccine: 50+ Years (1 of 1 - PCV)11/03/2009 Wellness Visit/0662Zzvfxaypo96/08/202206/01/2021, 10/29/2020, 01/30/2020, Additional history existseGFR - Kidney Qldkjhy24/08/2021 Cervical Cancer Booshvasa66/29/2025HPV/Nnukjz17Falls Risk Huyfhqjcdt15/31/2025OVID-19 Vaccine ( - season)/12/2021, 05/09/2021, 09/09/2020, Additional history existsInfluenza Vaccine (#1) /09/2020, 02/14/2020, 05/28/2019, Additional history exists Tetanus/Diphtheria/Pertussis (2 - Td or Tdap)Colonoscopy /09/2021, 09/07/2021olorectal Cancer Screening/Dwjfglvqqw29/04/2032 RSV Vaccines (1 - 1-dose 75+ series)11/03/2034Zoster [...] topic Procedures Procedure NamePriorityDate/TimeAssociated DiagnosisCommentsEXT LAB COMPREHENSIVE SNQFXMPOQAtwolel30/03/2022 9:52 AM EST from Last 3 Months or Most Recently Relevant to Health Maintenance Results * (ABNORMAL) External Lab Comprehensive Metabolic Panel (05/08/2022 9:52 AM EST) ComponentValueRef RangeTest MethodAnalysis TimePerformed AtPathologist GhesjmheyXzuswu594458 - 145 mmol/LPotassium4.03.5 - 5.1 mmol/FQaglyamb50071 - 107 mmol/EJvixdibqwkh5056.0 - 32.0 mmol/KEjkyvwt9996 - 106 mg/mJDUB277.0 - 18.0 mg/dLCreatinine1.30(A)0.58 - 1.02 mg/qFaRYP4cAPX Odonkaar1Pntdx ProteinAlbumin3.73.4 - 5.0 g/dLCalcium9.58.5 - 10.1 mg/dLAlkaline Phosphatase ASTALTTotal BilirubinBUN/Creatinine RatioGlobulinAlbumin/Globulin Ratio MagnesiumPhosphorus4.12.6 - 4.7 mg/dLUric AcidSpecimen (Source)Anatomical Location / LateralityCollection Method / VolumeCollection TimeReceived Time 05/08/2022 9:52 AM EST Narrative Authorizing ProviderResult TypeResult StatusUpender Rosangela MCKEON BLOOD ORDERABLESFinal Result from Last 3 Months or Most Recently Relevant to Health Maintenance Insurance * Guarantor: Nadine Waller TypeRelation to PatientDate of BirthPhoneBilling AddressPersonal/XxlgeqYswu94/31/1961 [id number] (Home) [address] [place] [address] Care Teams Team MemberRelationshipSpecialtyStart DateEnd Date Roxane Tom MD [address] [facility] [address] [place] [address] PCP - GeneralFamily Medicine07/09/20
[2025-06-04 16:36] LABS: Cast Seen? NONE SEEN #/LPF (NONE SEEN); Crystals Seen? None Seen #/HPF (None Seen)
[2025-06-04 16:37] LABS: Urine Culture Indicated NO
[2025-06-04 16:42] LABS: Cannabinoid Screen Urine NEGATIVE (NEGATIVE); Methamphetamines Screen Urine NEGATIVE (NEGATIVE); Tricyclic Antidepressant Urine NEGATIVE (NEGATIVE)
--- NOTE | 2025-06-04 17:02 | PC.NURSE ---
hopeline speaking with patient and her
[2025-06-04 18:59] LABS: SARS-CoV-2 Ag NEGATIVE (NEGATIVE)
== END 2025-06-04 20:49 ==
PROVIDERS: Physician Assistant; Emergency Provider Emergency Medicine; PCP Family Medicine
DX: F31.89 Other bipolar disorder (principal); F23 Brief psychotic disorder
CPT/HCPCS: 36415; 80053; 80179; 80307; 80320; 80329; 81001; 85025; 87811; 93005; 99285